=== PATIENT | female | born 1945 | race Caucasian/White ===

== ENCOUNTER 2018-12-25 10:17 | Outpatient (CLI) | payer MEDICARE, BC, SELFPAY ==
--- NOTE | 2018-12-25 09:30 | DI.RAD_ITS ---
SYMPTOMS/DIAGNOSIS: LOW BACK PAIN, M54.5 LUMBAR SPINE: AP, lateral and bilateral oblique views of the lumbar spine. Comparison 03/30/11. There is again seen a left convex scoliosis of the lumbar spine. No spondylolysis or spondylolisthesis is seen. There are degenerative changes of the facets seen from L 3 - 4 through L 5 - S 1. Disc space narrowing is present throughout the lumbar spine. There are endplate osteophytes present at L 1 - 2 through L 4 - 5. No acute fractures or subluxations are seen. Calcification of the abdominal aorta is noted. Note is made of a right total hip replacement. IMPRESSION: Moderate degenerative changes of the lumbar spine.
[2018-12-25 11:43] LABS: Anion Gap 11.8 mmol/L (3-11); BUN 15 mg/dL (7-18); CO2 24.2 mmol/L (21.0-32.0); CREATININE 0.65 mg/dL (0.55-1.02); Calcium 8.9 mg/dL (8.5-10.1); Chloride 105 mmol/L (98-107); Glucose 110 mg/dL (70-100); Sodium 141 mmol/L (136-145); TSH 2.68 uIU/mL (0.358-3.74)
== END 2018-12-25 10:37 ==
PROVIDERS: PCP Emergency Medicine; Visit Provider Emergency Medicine
DX: M54.5 Low back pain (principal); I10 Essential (primary) hypertension; E03.9 Hypothyroidism, unspecified; M51.36 Other intervertebral disc degeneration, lumbar region; M47.817 Spondylosis without myelopathy or radiculopathy, lumbosacral region
CPT/HCPCS: 36415; 80048; 72110; 84443

== ENCOUNTER 2020-01-08 00:58 | Outpatient (CLI) | payer MEDICARE, BC, SELFPAY ==
--- NOTE | 2020-01-08 08:30 | DI.RAD_ITS ---
EXAM: XR HIP LT COMPLETE AP PELVIS CLINICAL HISTORY: Left hip pain,M25.552. TECHNIQUE: 2D digital imaging was performed. COMPARISON: CR PELVIS AP from 03/30/2011 FINDINGS: BONES: No acute fracture is present. No bony destructive lesion is seen. Since the prior examination the patient has undergone a right total hip replacement. The visualized orthopedic components appear well maintained. JOINTS: No dislocation present. Mild degenerative changes are seen in the left hip characterized by m ild joint space narrowing and small periarticular spurs. Degenerative changes are seen in the lower lumbosacral spine. Sacroiliac joints and symphysis pubis are intact. SOFT TISSUE: Normal. IMPRESSION: Mild degenerative changes of the left hip. Right THR. DATA REPOSITORY: RADIATION DOSE DELIVERED:
[2020-01-08 13:16] LABS: Calculated LDL 107 mg/dL (<100); Cholesterol 209 mg/dL (<200); HDL Cholesterol 82 mg/dL (40-60); TSH 2.24 uIU/mL (0.36-3.74); Triglyceride 103 mg/dL (<150)
== END 2020-01-08 01:18 ==
PROVIDERS: PCP Emergency Medicine; Visit Provider Emergency Medicine
DX: M25.552 Pain in left hip (principal); M16.12 Unilateral primary osteoarthritis, left hip; Z96.641 Presence of right artificial hip joint; E03.9 Hypothyroidism, unspecified
CPT/HCPCS: 36415; 80061; 73502; 84443

== ENCOUNTER 2020-03-09 15:09 | Emergency (ER) | payer MEDICARE, BC, SELFPAY ==
[2020-03-09 15:13] VITALS: BP 163/74; PULSE 88; RESP 18; TEMP 36.7; O2SAT 96
--- NOTE | 2020-03-09 15:30 | DI.CT_ITS ---
EXAM: CT ABDOMEN PELVIS W CLINICAL HISTORY: rectal bleeding, hx polyps. TECHNIQUE: Imaging Protocol: Axial computed tomography images with coronal and sagittal reformatted images were created and reviewed CONTRAST MATERIAL: Intravenous: Omnipaque 350 Contrast volume:100 mL Oral: No COMPARISON: CT CHEST WITH CONTRAST from 01/04/2011 FINDINGS: ABDOMEN: Lung Bases: Scarring in the lung bases. Liver: Normal density. No measurable mass. Portal, Superior Mesenteric, and Splenic Veins: Unremarkable. Gallbladder and Biliary Tract: No radiodense calculus or dilation. Pancreas: Normal density, no abnormal calcifications or inflammatory process. Spleen: Normal. Adrenals: No masses seen. Kidneys: Normal size, contour and axis. No radiodense stones or obstructive uropathy. No masses seen. Abdominal Aorta: Abdominal portion non-dilated. Atherosclerosis. Bowel: There is colonic diverticulosis but no evidence of acute diverticulitis. There is a moderate- sized hiatal hernia. No evidence of acute appendicitis. No evidence of bowel obstruction. Mild thi ckening of the wall of the transverse colon. This may be due to underdistention. An infectious or i nflammatory colitis or lesion cannot be excluded. Peritoneal Cavity: No ascites, collection or mesenteric inflammatory response. Lymph Nodes: Within normal limits. Bones: Degenerative changes in the spine. Right total hip arthroplasty which does cause artifact in the pelvis. Soft Tissues: Small fat containing supraumbilical hernia. PELVIS: Bladder: Symmetric distention, no gross wall thickening. Partially obscured due to the artifact from the right hip prosthesis. Reproductive Organs: 3 cm left ovarian cyst. Lymph Nodes: Within normal limits. Bones: Please see above. IMPRESSION: 1. 3 cm left ovarian cyst. Follow-up is recommended as early malignancy cannot be excluded in a ang ent of this age. 2. Wall thickening of the transverse colon. This may be due to underdistention although an inflammat ory infectious colitis or lesion cannot be excluded. Follow-up as clinically indicated. 3. Colonic diverticulosis but no evidence of acute diverticulitis. RADIATION DOSE DELIVERED: 637.69mGy.cm Total DLP DATA REPOSITORY: All CT scans at this facility are submitted to the National Radiology Data Registry (NRDR) Dose Index Registry (DIR) with the [employer] ([employer]). RADIATION OPTIMIZATION: All CT scans at this facility use at least one of these dose optimization te chniques: automated exposure control; mA and/or kV adjustment per patient size (includes targeted exa ms where dose is matched to clinical indication); or iterative reconstruction.
--- NOTE | 2020-03-09 15:37 | W.ED.GENAD ---
Discharge Plan Disposition Patient Disposition: HOME Condition: Improving Discharge Details Chief Complaint: GI Bleed Clinical Impression: Hematochezia Primary Care Provider: Javi Izaguirre ED Provider: Moisés Dumont Home Meds and New Rx's Prescriptions: Continued lorazepam 0.5 mg tablet 0.5 mg PO QHS PRN (Reason: anxiety) Qty: 90 RF: 0 amlodipine 5 mg tablet 5 mg PO DAILY Qty: 90 RF: 4 acetaminophen [Acetaminophen Extra Strength] 500 MG tablet 500 - 1,000 tab PO BID RF: 0 omeprazole 20 MG capsule,delayed release(DR/EC) 20 mg PO DAILY Qty: 90 RF: 4 mometasone 45 GM cream 45 gm Topical daily prn RF: 0 fluticasone propionate 16 GM spray,suspension 50 mcg NS DAILY RF: 0 multivitamin [Daily Multi-Vitamin] 1 EACH tablet 1 ea PO DAILY RF: 0 cholecalciferol (vitamin D3) 1,000 UNIT capsule 1,000 unit PO DAILY RF: 0 levothyroxine [Synthroid] 50 mcg tablet 50 mcg PO DAILY Qty: 90 RF: 2 lutein-zeaxanthin 20 mg- 1,000 mcg Capsule PO DAILY RF: 0 zcrqwyo-ksdddvcto-pqaj 333-133-5 mg Tablet PO DAILY RF: 0 Discontinued meloxicam 15 mg tablet 15 mg PO DAILY RF: 0 Discharge Instructions Instructions: Rectal Bleeding (ED) Additional Instructions: Your work-up today included CBC, comprehensive panel, CT scan of the abdomen and pelvis. Return for persistent rectal bleeding, weakness, chest pain, lightheadedness, or any other acute concerns. Please observe a bland diet. We will ask our care management team to arrange an outpatient follow-up for you in clinic with general surgery. Home to rest this evening. 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 She has had external hemorrhoids and rectal bleeding in the past. Today with her morning bowel movement she noted a brown stool with spots of blood. It then ceased. After lunch she went to urinate and developed what she describes as large volume bloody rectal effluent. It was able to cease at home with placement of a pad. She subsequently was brought to the emergency department with her . She arrives slightly hypertensive at 163/74 with a pulse of 88 but otherwise pleasant, conversant, in no acute distress. Her abdominal exam is benign. There is crusted dried blood around her rectum. The rectal exam reveals normal tone, no mass, no active bleeding. Her history of GERD, recent course of meloxicam for 3 weeks, & medical record that notes Colon polyps and diverticulosis are notable. Differential diagnosis includes colitis, diverticulitis, mass, internal hemorrhoid or bleeding polyp. IV access was established, patient had screening laboratories obtained, started on maintenance fluids, referred for screening laboratories and p.o. and IV enhanced CT scan of the abdomen. Labs are unremarkable. No further rectal bleeding. CT reveals thickening of the transverse colon. May be consistent with colitis. Discussed with her consideration of admission which she would like to defer. Discussed with her indications to return to the ER for reevaluation. Will arrange for outpatient follow-up in surgery with consideration of colonoscopy. She is stable and improved. However observe a bland diet. She has already decided to stop taking the previously prescribed meloxicam.. Lab Data Lab results reviewed: Yes I reviewed the patient's lab results. Labs: Laboratory Results - last 24 hr 03/09/20 03/09/20 03/09/20 15:35 15:35 15:35 WBC 9.44 RBC 4.59 Hgb 14.2 Hct 43.0 MCV 93.7 MCH 30.9 MCHC 33.0 RDW 14.0 Plt Count 281 MPV 9.4 Immature Gran % 0.3 Neutrophils % 63.9 Lymphocytes % 24.9 Monocytes % 8.5 Eosinophils % 2.0 Basophils % 0.4 Absolute Neutrophils 6.03 Absolute Lymphocytes 2.35 Absolute Monocytes 0.80 Absolute Eosinophils 0.19 Absolute Basophils 0.04 PT 10.3 INR 1.0 APTT 23.9 Sodium 139 Potassium 3.5 Chloride 103 Carbon Dioxide 25.3 Anion Gap 10.7 BUN 18 Creatinine 0.79 Estimated GFR/1.73 m2 >= 60.00 Glucose 106 Calcium 10.2 H Magnesium 2.2 Total Bilirubin 0.4 AST 27 ALT 31 Alkaline Phosphatase 71 Total Protein 8.0 Albumin 3.9 HPI General Mode of arrival: ambulatory. Date/Time Provider Initiated Documentation: 03/09/20 15:11. Limitations to Documentation: no limitations. Information obtained by: patient. History of Present Illness 74 year old F presents to the emergency department with the chief complaint of Blood per rectum, described as moderate, and is localized to the buttocks. Patient reports no radiation. Patient started experiencing this hour(s) and it has been intermittent and now resolved. No relieving factors improve symptom(s), Other factors that worsen symptoms (Bowel movement) . Patient notes denies cough, fever/chills and nausea/vomiting. Patient did receive the following treatments prior to arrival, none Related Data Home Medications Medication Instructions Recorded Confirmed acetaminophen [Acetaminophen Extra 500 - 1,000 tab PO BID 10/18/12 03/09/20 Strength] omeprazole 20 mg PO DAILY #90 tab-cap 10/18/12 03/09/20 mometasone 45 gm TOPICAL daily prn script 12/30/14 12/25/18 fluticasone propionate 50 mcg NS DAILY spray 11/25/16 03/09/20 multivitamin [Daily Multi-Vitamin] 1 ea PO DAILY 04/14/17 03/09/20 cholecalciferol (vitamin D3) 1,000 unit PO DAILY 06/27/17 03/09/20 levothyroxine 50 mcg tablet 50 mcg PO DAILY #90 tab-cap 12/30/19 03/09/20 amlodipine 5 mg tablet 5 mg PO DAILY #90 tab-cap 01/07/20 03/09/20 lorazepam 0.5 mg tablet 0.5 mg PO QHS PRN #90 tab 01/07/20 03/09/20 moszamd-fpphvedeq-yvjl tab PO DAILY 03/09/20 lutein-zeaxanthin cap PO DAILY 03/09/20 Previous Rx's Medication Instructions Recorded levothyroxine 50 mcg tablet 50 mcg PO DAILY #90 tab-cap 12/30/19 amlodipine 5 mg tablet 5 mg PO DAILY #90 tab-cap 01/07/20 lorazepam 0.5 mg tablet 0.5 mg PO QHS PRN #90 tab 01/07/20 Allergies Allergy/AdvReac Type Severity Reaction Status Date / Time prochlorperazine edisylate AdvReac Intermediate agitation Verified 03/09/20 15:24 [From Compazine] prochlorperazine maleate AdvReac Intermediate agitation Verified 03/09/20 15:24 [From Compazine] metoclopramide HCl AdvReac disorientat Verified 03/09/20 15:24 [From Reglan] ion General Stated Complaint: GI Bleed TRAVIS: 3 Review of Systems Narrative: Recently placed on meloxicam, has been taking for 3 weeks, stopped today. Blood with brown bowel movement this morning. No fever, cough, shortness of breath or suspicious sick contacts. 7 systems reviewed and otherwise negative [facility] Medical History (Updated 03/09/20 @ 18:00 by Moisés Dumont MD) Allergic rhinitis Anxiety Breast cancer Colon polyps Depression (emotion) Diverticulosis large intestine w/o perforation or abscess w/o bleeding Fibromyalgia GERD (gastroesophageal reflux disease) Hypertension Left ear hearing loss Left hip pain (Acute) MS (multiple sclerosis) Rosacea Sleep apnea with use of continuous positive airway pressure (CPAP) (Acute) Tubular adenoma of colon (Acute) 02/24/19 [facility] [place] Surgical History Arthroplasty of knee RIGHT KNEE 1991, 1992, 1996 Breast, Lumpectomy (~1988) RIGHT breast Breast, Mastectomy PARTIAL LEFT BREAST 2010 RE-EXCISION LEFT BREAST 2010 Colonoscopy - MAC (~2004) 2005:diverticulitis 2014: 3 polyps Endometrial Biopsy 1997 neg 2000 neg Extraction of cataract (~01/2012) B/L WITH IMPLANTS Ligation of fallopian tube (~1971) Meniscectomy 1961 RIGHT LATERAL KNEE Open Carpal Tunnel release (~2009) Replacement of total knee joint LEFT 12/03 RIGHT 1996- WITH REVISION 12/10 thumb surgery B/L Total replacement of hip 08/19/14; RIGHT; DR. GRAY WRIST FX REPAIR (~2009) RIGHT Family History Mother Essential hypertension Diabetes Personal history of malignant neoplasm LUNG Father Essential hypertension Personal history of malignant neoplasm LUNG Stroke Sister Essential hypertension Brother Essential hypertension Diabetes Personal history of malignant neoplasm LIVER Grandfather No problems noted. Grandfather No problems noted. Grandmother No problems noted. Grandmother No problems noted. Social History Smoking/Tobacco Use Status: Former Tobacco Use Alcohol Intake: current Alcohol Intake frequency: 0-2 drinks per day Alcohol type: wine Drug use: Never Substance use type: does not use Details: light smoker Do you feel safe at home: Yes Do you feel safe in your relationship?: Yes Exam Narrative Exam Narrative: GEN: awake, alert, oriented 3. Pleasant, well groomed, interactive. HEAD: Normocephalic, atraumatic ENT: Mucous membranes moist, oropharynx unremarkable, External ear exam unremarkable EYES: PERRL, EOMI NECK: Full ROM, no SUDARSHAN, no menigismus CHEST/RESP: Nontender, clear to auscultation bilateral, no wheeze/rhonchi/rales CARDIOVASCULAR: RRR, no murmur, rub samantha. 2+ Rad pulse bilateral ABDOMEN: Soft, nontender, no mass, positive bowel sounds, rectal exam reveals crusted blood around normal-appearing anal sphincter, normal rectal tone, rectal vault is empty, no masses appreciated. Guaiac positive mucus and blood. EXT: Full ROM, no edema, no rash Neuro: Grossly normal neurologic exam, conversant, interactive. Psych: Speech fluent, thoughts congruent, affect normal Course Vital Signs Vital signs: Vital Signs Temperature 36.7 C 03/09/20 15:13 Pulse 88 03/09/20 15:13 Respiratory Rate 18 03/09/20 15:13 Blood Pressure 163/74 H 03/09/20 15:13 Pulse Oximetry 96 03/09/20 15:13 Temperature 36.7 C 03/09/20 15:13 Temperature Source Skin 03/09/20 15:13 Pulse 88 03/09/20 15:13 Respiratory Rate 18 03/09/20 15:13 Respiratory Effort 03/09/20 15:21 Blood Pressure 163/74 H 03/09/20 15:13 Blood Pressure Position Sitting 03/09/20 15:13 Pulse Oximetry 96 03/09/20 15:13 Oxygen Delivery Method Room Air 03/09/20 15:13 Oxygen Flow Rate 0 03/09/20 15:13 Pain Level 4 03/09/20 15:13 Comment 03/09/20 15:13
[2020-03-09 15:44] LABS: Abs Immature Grans 0.03 10^3/uL (0.0-0.06); Absolute Basophil Count 0.04 10^3/uL (0.0-0.2); Absolute Eosinophil Count 0.19 10^3/uL (0.0-0.7); Absolute Lymphocyte Count 2.35 10^3/uL (1.2-3.4); Absolute Neutrophil Count 6.03 10^3/uL (1.2-6.7); Basophils % 0.4; HGB 14.2 g/dL (11.2-15.7); Immature Grans % 0.3; Lymphocytes % 24.9; MCH 30.9 pg (27.0-33.0); MCV 93.7 fL (80-95); MPV 9.4 fL (8.0-11.0); Monocytes % 8.5; Neutrophils % 63.9; Nucleated RBC 0 %; Platelet Count 281 10^3/uL (130-400); RBC 4.59 10^6/uL (3.93-5.22); RDW-SD 47.2 fL; WBC 9.44 10^3/uL (4.4-10.8)
[2020-03-09] MEDS: Normal Saline 1,000 ML 125 ML IV (15:46)
[2020-03-09 16:04] LABS: ALT 31 U/L (14-59); AST 27 U/L (15-37); Albumin 3.9 g/dL (3.4-5.0); Alkaline Phosphatase 71 U/L (46-116); Anion Gap 10.7 mmol/L (3-11); BUN 18 mg/dL (7-18); Bilirubin, Total 0.4 mg/dL (0.2-1.0); CO2 25.3 mmol/L (21.0-32.0); CREATININE 0.79 mg/dL (0.55-1.02); Calcium 10.2 mg/dL (8.5-10.1); Chloride 103 mmol/L (98-107); Glucose 106 mg/dL (74-106); Magnesium 2.2 mg/dL (1.8-2.4); Potassium 3.5 mmol/L (3.5-5.1); Sodium 139 mmol/L (136-145)
[2020-03-09 16:10] LABS: PTT Activated 23.9 sec (21.0-31.4); Prothrombin Time 10.3 sec (9.3-11.0)
[2020-03-09 16:23] VITALS: BP 139/68; PULSE 87; RESP 16; O2SAT 98
[2020-03-09] MEDS: Omnipaque 350 MG/ML 100 ML BTL IJ (16:54)
[2020-03-09] MEDS: Normal Saline - Diluent 50 ML VIAL IV (16:54)
[2020-03-09 17:36] VITALS: BP 166/74; PULSE 85; RESP 16; O2SAT 95
[2020-03-09 17:37] VITALS: BP 166/74; PULSE 85; RESP 16; O2SAT 95
--- NOTE | 2020-03-09 17:47 | DI.VRAD_ITS ---
PROCEDURE INFORMATION: Exam: CT Abdomen And Pelvis With Contrast Exam date and time: 03/09/2020 3:37 PM Age: 74 years old Clinical indication: Patient HX: Rectal bleeding, HX of polyps; TECHNIQUE: Imaging protocol: Computed tomography of the abdomen and pelvis with intravenous contrast. COMPARISON: CR XR HIP LT COMPLETE AP PELVIS 01/08/2020 11:44 AM FINDINGS: Lungs: Minimal scarring at the pulmonary bases. Mediastinal space: Moderate hiatal hernia. Liver: Normal. No mass. Gallbladder and bile ducts: Normal. No calcified stones. No ductal dilation. Pancreas: Normal. No ductal dilation. Spleen: Normal. No splenomegaly. Adrenals: Normal. No mass. Kidneys and ureters: Normal. No hydronephrosis. Stomach and bowel: Duodenal diverticulum. Distal colonic diverticulosis without diverticulitis. Wall thickening in the transverse colon measuring up to 1.4 cm. This could be related to under distention although underlying colitis or lesion is not excluded. Follow-up with colonoscopy if clinically relevant. Appendix: Unable to identify the appendix. Intraperitoneal space: Unremarkable. No free air. No significant fluid collection. Vasculature: Atherosclerosis. Lymph nodes: Unremarkable. No enlarged lymph nodes. Bladder: Unremarkable as visualized. Reproductive: Left ovarian cyst measures 3 cm. Follow-up is recommended. Bones/joints: Right hip replacement. Soft tissues: Unremarkable. IMPRESSION: 1. Left ovarian cyst measures 3 cm. Follow-up is recommended. In a patient of this age, early malignancy should be excluded. 2. Distal colonic diverticulosis without diverticulitis. 3. Wall thickening in the transverse colon measuring up to 1.4 cm. This could be related to under distention although underlying colitis or lesion is not excluded. Follow-up with colonoscopy if clinically relevant. Dictated and Authenticated by: Nikia Alexander MD. Ordering:KRISTEN Curiel MD
--- NOTE | 2020-03-09 17:55 | NUR.NOTE ---
referral to faxed to General Surgery.Nursing Note:
== END 2020-03-09 18:19 | disposition home or self-care (01) ==
PROVIDERS: Emergency Provider Emergency Medicine; PCP Emergency Medicine
DX: K92.1 Melena (principal); K57.90 Diverticulosis of intestine, part unspecified, without perforation or abscess without bleeding; I10 Essential (primary) hypertension; G35 Multiple sclerosis
CPT/HCPCS: 36415; 80053; 96360; 96361; 99285; 74177; 83735; 85025; 85610; 85730; 99284; J3490

== ENCOUNTER → 2020-03-19 09:29 | Outpatient (BNVA) | payer MEDICARE, BC, SELFPAY | PROVIDERS: PCP Emergency Medicine; Referring Provider Emergency Medicine; Visit Provider Physical Therapy Assistant | DX: K62.5 Hemorrhage of anus and rectum (principal); Z86.010 Personal history of colon polyps; I10 Essential (primary) hypertension | CPT/HCPCS: 99213 ==

== ENCOUNTER 2020-03-26 10:07 | Day surgery (SDC) | payer MEDICARE, BC, SELFPAY ==
[2020-03-26 10:32] VITALS: BP 126/60; PULSE 69; RESP 16; TEMP 36.4; O2SAT 100
[2020-03-26] MEDS: Lactated Ringers 1,000 ML 80 ML IV (10:57)
--- NOTE | 2020-03-26 12:30 | BOWEL_PTH ---
PATIENT: Sofía Mcdonald LOC: [facility] U#:[id number] AGE/SX: 74/F ROOM: RE03/26/[address]: Belia Shannon : 1945 BED: DIS: 03/26/2020 SPEC #: [id number] RECD: 03/26/20 17:42 STATUS: YESENIA REQ #: [id number] REGINALD: 03/26/20 12:[address]: Belia Shannon DEPT: Surgical Specimen RECD BY: Saida Haque ENTERED: 03/26/20 17:43 SP TYPE: Bowel OTHR DR: Javi Izaguirre DO Tissues: 1 - BIOPSY BOWEL 2 - BIOPSY BOWEL Procedures: GROSS AND MICRO LEVEL 4 Comments: [id number]
--- NOTE | 2020-03-26 12:40 | W.PM.DSUDISC ---
Discharge Plan Disposition Patient Disposition: HOME Condition: Good Discharge Details Reason For Visit: colon scope Attending Provider: Belia Shannon Primary Care Provider: Javi Izaguirre Home Meds and New Rx's Prescriptions: Continued lorazepam 0.5 mg tablet 0.5 mg PO QHS PRN (Reason: anxiety) Qty: 90 RF: 0 amlodipine 5 mg tablet 5 mg PO DAILY Qty: 90 RF: 4 acetaminophen [Acetaminophen Extra Strength] 500 MG tablet 500 - 1,000 tab PO BID RF: 0 omeprazole 20 MG capsule,delayed release(DR/EC) 20 mg PO DAILY Qty: 90 RF: 4 mometasone 45 GM cream 45 gm Topical daily prn RF: 0 fluticasone propionate 16 GM spray,suspension 50 mcg NS DAILY RF: 0 multivitamin [Daily Multi-Vitamin] 1 EACH tablet 1 ea PO DAILY RF: 0 cholecalciferol (vitamin D3) 1,000 UNIT capsule 1,000 unit PO DAILY RF: 0 levothyroxine [Synthroid] 50 mcg tablet 50 mcg PO DAILY Qty: 90 RF: 2 lutein-zeaxanthin 20 mg- 1,000 mcg Capsule 1 cap PO DAILY RF: 0 chqcndv-ftibeilan-vvkn 333-133-5 mg Tablet 1 tab PO DAILY RF: 0 ibuprofen 200 mg Tablet 400 mg PO DAILY RF: 0 Discontinued polyethylene glycol 3350 17 gram/dose powder 238 g PO ONCE Qty: 238 RF: 0 bisacodyl [Dulcolax (bisacodyl)] 5 mg tablet,delayed release (DR/EC) 5 mg PO ONCE Qty: 4 RF: 0 Discharge Instructions Instructions: Anal Fissure (GEN) Additional Instructions: Findings:rectal fissure sm. A. polyp Diverticulosis transverse colon appeared normal. Biopsy was done. -Please sure you are moving your bowels regularly and not straining to go to the bathroom. The fissure should heal on its own. You will receive a letter in the mail in 2 to 3 weeks with the results from the biopsy and pathology on the polyp. *You also have an enlarged left ovary on the CT. I did order a ultrasound to be done as outpatient and do recommend that she follow-up with gynecology regarding this. Follow up:1 months time Please call if you develop: fevers >101.5 Nausea or Vomiting Abdominal pain that is not transient DAY SURGERY UNIT POST COLONOSCOPY INSTRUCTIONS 1. Because there will be medication in your system for the next 24 hours, you may feel a little sleepy. Your coordination will be affected. Therefore: a. Do not drive or operate dangerous equipment for 24 hours. b. Do not drink alcohol beverages for 24 hours (not even beer). c. Plan to go home and rest for the day. 2. Generally there are no restrictions on your activity after a day or so has gone by, but you may feel a bit fatigued for a few days. 3 After you arrive home you may have a light meal and return to a normal diet as you can tolerate it without feeling sick to your stomach. 4. After surgery, you may feel pain or discomfort. This should be only transient, but if it persists please contact your doctor. 5. If there are any questions regarding the findings of your procedure, please feel free to contact your doctor. 6. If you are unable to contact your doctor with a problem, contact the hospital at [phone]. 7. Continue all your regular medications unless directed otherwise. I understand the above instructions and have no questions. Signature of Patient or Responsible Adult Escort Date/Time Name of Responsible Adult Escort Signature of Nurse Date/Time DIVERTICULAR DISEASE OVERVIEW ? A diverticulum is a pouch-like structure that can form through points of weakness in the muscular wall of the colon (ie, at points where blood vessels pass through the wall). Diverticulosis affects men and women equally. The risk of diverticular disease increases with age. It occurs throughout the world but is seen more commonly in developed countries. WHAT IS DIVERTICULAR DISEASE? Diverticulosis ? Diverticulosis merely describes the presence of diverticula. Diverticulosis is often found during a test done for other reasons, such as flexible sigmoidoscopy, colonoscopy, or barium enema. Most people with diverticulosis have no symptoms and will remain symptom free for the rest of their lives. A person with diverticulosis may have diverticulitis, or diverticular bleeding. Diverticulitis ? Inflammation of a diverticulum (diverticulitis) occurs when there is thinning and breakdown of the diverticular wall. This may be caused by increased pressure within the colon or by hardened particles of stool, which can become lodged within the diverticulum. The symptoms of diverticulitis depend upon the degree of inflammation present. The most common symptom is pain in the left lower abdomen. Other symptoms can include nausea and vomiting, constipation, diarrhea, and urinary symptoms such as pain or burning when urinating or the frequent need to urinate. Diverticulitis is divided into simple and complicated forms. ?Simple diverticulitis, which accounts for 75 percent of cases, is not associated with complications and typically responds to medical treatment without surgery. ?Complicated diverticulitis occurs in 25 percent of cases and usually requires surgery. Complications associated with diverticulitis can include the following: ?Abscess ? a localized collection of pus ?Fistula ? an abnormal tract between two areas that are not normally connected (eg, bowel and bladder) ?Obstruction ? a blockage of the colon ?Peritonitis ? infection involving the space around the abdominal organ ?Sepsis ? overwhelming body-wide infection that can lead to failure of multiple organs Diverticular bleeding ? Diverticular bleeding occurs when a small artery located within a diverticulum is eroded and bleeds into the colon. Diverticular bleeding usually causes painless bleeding from the rectum. In approximately 50 percent of cases, the person will see maroon or bright red blood with bowel movements. Is bleeding with a bowel movement normal? ? It is not normal to see blood in a bowel movement; this can be a sign of several conditions, most of which are not serious (eg, hemorrhoids) but some of which are serious and require immediate treatment. Anyone who sees blood after a bowel movement should consult with their healthcare provider to determine if further testing or evaluation is needed. DIVERTICULOSIS AND DIVERTICULITIS DIAGNOSIS ? Diverticulosis is often found during tests performed for other reasons. ?Barium enema ? This is an x-ray study that uses barium in an enema to view the outline of the lower intestinal tract. This is an older test and has been largely replaced by computed tomography (CT) scan. ?Flexible sigmoidoscopy ? This is an examination of the inside of the sigmoid colon with a thin, flexible tube that contains a camera. ?Colonoscopy ? This is an examination of the inside of the entire colon. ?CT scan ? A CT scan is often used to diagnose diverticulitis and its complications. If diverticulitis (not just diverticulosis) is suspected, the above three tests should not be used because of the risk of perforation. TREATMENT Diverticulosis ? People with diverticulosis who do not have symptoms do not require treatment. However, most clinicians recommend increasing fiber in the diet, which can help to bulk the stools and possibly prevent the development of new diverticula, diverticulitis, or diverticular bleeding. Fiber is not proven to prevent these conditions in all patients but may help to control recurrent episodes in some. Increase fiber ? Fruits and vegetables are a good source of fiber. Fiber content of packaged foods can be calculated by reading the nutrition label. Seeds and nuts ? Patients with diverticular disease have historically been advised to avoid whole pieces of fiber (such as seeds, corn, and nuts) because of concern that these foods could cause an episode of diverticulitis. However, this belief is completely unproven. We do not suggest that patients with diverticulosis avoid seeds, corn, or nuts. Diverticulitis ? Treatment of diverticulitis depends upon how severe your symptoms are. Home treatment ? If you have mild symptoms of diverticulitis (mild abdominal pain, usually left lower abdomen), you can be treated at home with a clear liquid diet and oral antibiotics. However, if you develop one or more of the following signs or symptoms, you should seek immediate medical attention: ?Temperature >100.1?F (38?C) ?Worsening or severe abdominal pain ?An inability to tolerate fluids Hospital treatment ? If you have moderate to severe symptoms, you may be hospitalized for treatment. During this time, you are not allowed to eat or drink; antibiotics and fluids are given into a vein. If you develop an abscess of the colon, you may require drainage of the abscess (usually performed by placing a drainage tube across the abdominal wall) or by surgically opening the affected area. Surgery ? If you develop a generalized infection in the abdomen (peritonitis), you will usually require an emergency operation. A two-part operation may be necessary in some cases. ?The first operation involves removal of the diseased colon and creation of a colostomy. A colostomy is an opening between the colon and the skin, where a bag is attached to collect waste from the intestine. The lower end of the colon is temporarily sewed closed to allow it to heal. ?Approximately three to six months later, a second operation is performed to reconnect the two parts of the colon and close the opening in the skin. You are then able to empty your bowels through the rectum. Sometimes patients require up to a year to recover from the first operation, depending on how sick they were. In non-emergency situations, the diseased area of the colon can be removed and the two ends of the colon can be reconnected in one operation, without the need for a colostomy. Surgery versus medical therapy ? An operation to remove the diseased area of the colon may be necessary if you do not improve with medical therapy. After an episode of uncomplicated diverticulitis, elective surgery is generally not required as the risk of another attack or requiring emergency surgery is low. However, patients with persistent symptoms attributable to diverticulitis, a history of complicated diverticulitis, or a compromised immune system should be evaluated for possible surgery to prevent another attack. In such patients, another attack has been associated with a higher risk of complications or . Of course, the decision will also depend in part upon your other medical conditions and ability to undergo surgery. In many cases, an elective operation can be performed laparoscopically, using small incisions, rather than the typical vertical (up and down) abdominal incision. Laparoscopic surgery usually allows you to recover more quickly and shortens the hospital stay. After diverticulitis resolves ? After an episode of diverticulitis resolves, if you have not had a recent colonoscopy, the entire length of the colon should be evaluated to determine the extent of disease and to rule out the presence of abnormal lesions such as polyps or cancer. Recommended tests include colonoscopy, barium enema and sigmoidoscopy, or CT colonography. Diverticular bleeding ? Most cases of diverticular bleeding resolve on their own. However, some people will need further testing or treatment to stop bleeding, which may include a colonoscopy, angiography (a treatment that blocks off the bleeding artery), bleeding scan, or surgery. DIVERTICULAR DISEASE PROGNOSIS Diverticulosis ? Over time, diverticulosis may cause no problems or it may cause episodes of bleeding and/or diverticulitis. Approximately 15 to 25 percent of people with diverticulosis will develop diverticulitis, while 5 to 15 percent will develop diverticular bleeding. Diverticulitis ? Approximately 85 percent of people with uncomplicated diverticulitis will respond to medical treatment, while approximately 15 percent of patients will need an operation. After successful treatment for a first attack of diverticulitis, one-third of patients will remain asymptomatic, one-third will have episodic cramps without diverticulitis, and one-third will go on to have a second attack of diverticulitis. The prognosis tends to remain similar following a second attack of diverticulitis. Only 10 percent of people remain symptom-free after a second attack. Subsequent attacks tend to be of similar severity, not increasing in severity as previously believed. High Fiber Diet What is Dietary Fiber? All fiber comes from plants, bushes, myriam or trees. Of course, the ones that we eat provide us with fruits, vegetables and grains. There are many different types of fiber but the three that are most important to the health of the body are: Insoluble Fiber This fiber does not dissolve in water, nor is it fermented by the bacteria residing in the colon. Rather, it retains water and in so doing, helps to promote a larger, bulkier and more regular bowel activity. This, in turn, may be important in preventing disorder such as diverticulosis and hemorrhoids, and in sweeping out certain toxins and cancer causing carcinogens. Sources of insoluble fiber are: ? whole grain wheat and other whole grains ? corn bran, including popcorn, unflavored and unsweetened ? nuts and seeds ? potatoes and the skins from most fruits from trees such as apples, bananas and avocados ? many green vegetables such as green beans, zucchini, celery and cauliflower ? some fruit plants such as tomatoes and kiwi Soluble Fiber These fibers are fermented or used by the colon bacteria as a food source or nourishment. When these good bacteria grow and thrive, many health benefits occur in both the colon and the body. Soluble fiber is present in some degree in most edible plant foods, but the ones with the most soluble fiber include: ? legumes such as peas and most beans, including soybeans ? oats, rye and barley ? many fruits such as berries, plums, apples bananas and pears ? certain vegetables such as broccoli and carrots ? most root vegetables ? psyllium husk supplement products Prebiotic Soluble Fiber These are relatively newly discovered soluble plant fibers. The technical name for this fiber is inulin or fructan. When these soluble fibers are fermented by the good colon bacteria, some further significant health benefits have been shown to occur by research in many medical centers. These soluble prebiotic fibers occur in significant amounts in: ? asparagus ? yams ? onions ? garlic ? bananas ? leeks ? agave ? chicory and other root vegetables such as [place] artichokes ? wheat, rye and barley (smaller amounts) Benefits of a High Fiber Diet The health benefits of a high fiber diet, consumed on a regular basis and reaching recommended amounts (below), are now fairly well-defined. There are some additional benefits in the early research stage with the prebiotic soluble fibers. What is now known regarding a high fiber diet include: Bowel Regularity A high fiber diet promotes regularity with a softer, bulkier and regular stool pattern. This decreases the chance of hemorrhoids, diverticulosis and perhaps colon cancer. Cholesterol and Reduced Triglycerides The soluble fibers are the ones that will reduce cholesterol levels when used on a regular basis. Psyllium husk and prebiotic soluble fiber will also reduce cholesterol. They may also reduce the incidence of coronary heart disease. Oats, flax seeds and legumes or beans are the recommended fibers. Colon Polyps and Cancer It is still not certain if a high fiber diet helps prevent colon cancer. Considerable research suggests that this may occur. Certainly it makes sense to increase regularity and so speed the movement of cancer causing carcinogens through the bowel. In addition, reducing a heavy meat diet reduces the bile flow from the liver in a favorable way. This, too, reduces the amount of carcinogens that reach and are manufactured in the colon. Finally, a high fiber diet, including prebiotic soluble fiber, increases the integrity and health of the wall of the colon. The risk of cancer may be reduced. Colon Wall Integrity A high fiber diet changes the bacterial makeup of the colon toward a more favorable balance. For instance, it is known that those people with obesity, diabetes type 2 and inflammatory bowel disease have a predominance of bad bacteria in the colon. This, in turn, may render the bowel wall weak and allow bacteria and, indeed, even toxins to seep through. A high fiber diet with a modest reduction in animal and meat products may return the bacterial makeup to a more positive balance. This, in particular, has been seen when the soluble fiber prebiotics are added to the diet. Blood Sugar Soluble fiber such as in legumes (beans), oats and in prebiotic fibers slows the absorption of blood sugar and so helps regulate the sugar in the blood. Insoluble fiber on a regular basis is associated with reduced risk of type 2 diabetes. Weight Loss High fiber diets are more filling and give a sense of fullness sooner than an animal and meat based diet does. In addition, the soluble prebiotic fibers have been shown to turn off the hunger hormones produced in the wall of the gut and to increase the hormones that give a sense of fullness. Those hormones are made in the wall of the gut. New medical research has shown that the bacterial makeup in the colon in overweight people is abnormal to the extent that they manufacture and absorb almost twice the number of calories through the colon wall as do normals. Prebiotic fibers (below) will help change this hormonal balancein a favorable way. Bacteria and the Function of the Colon The colon finishes the digestive process. Hopefully, the waste products move through in a nice regular manner. Insoluble fibers help this process by retaining water and so producing a bulkier, softer stool, which is easy to pass. The additional role of the colon is to provide a home for an enormous number of micro-organisms, mostly bacteria. Recent research has shown that there are over 1,000 species of bacteria with a total bacterial count ten times the number of cells in the body. These bacteria play a major role in keeping the colon wall itself healthy. In addition, these good bacteria produce a very strong immune system for the body. They significantly increase calcium absorption and bone density. They provide other documented benefits. It is the soluble fibers in the diet that are so effective in stimulating the growth of good colon bacteria. How Much is Enough? The amount of fiber in food is measured in grams. National nutritional authorities recommend the following amounts of dietary fiber daily. Under Age 50 Over Age 50 Men 38 grams 30 grams Women 25 grams 21 grams For a week or so, it is best to tally the amount of fiber you are consuming. Boxed and packaged foods will have the amount of fiber per serving on the nutrition label. Which Fibers and Which Foods are Best? As noted, healthy fiber is only found in plants. The three major categories are whole grains, fruits and vegetables. Whole Grains Wheat, oats, barley, wild or brown rice, amaranth, buckwheat, bulgur, corn, millet, quinoa, rye, sorghum, teff and triticals. By far, wheat, oats and wild or brown rice are most common. Always buy whole grain products. White bread, baked goods and rolls almost always are made from wheat flour. Wheat flour is white because most of the fiber, vitamins and other nutrients have been removed. Try not buy enriched grains. What this means is that simple white flour has had vitamins added to it by the lead caregiver. The word, enriched, implies a good and healthy product. On the contrary, enriched means that most of the fiber has been removed and a few vitamins added. Fruits Fruits come from trees such as apple and pear or from bushes or myriam. You should eat a wide variety of fruits, preferably with every meal. In many cases, the skin of a fruit such as apple will contain much of the insoluble fiber while the pulp contains most of the soluble fiber. To the extent possible, buy organic fruits as these will have little or no pesticides. Always wash fruit. Vegetables Eat a wide variety of vegetables. They should be a mainstay of lunch and dinners. Frozen vegetables retain as much nutrition and fiber as fresh vegetables. As with fruit, try to buy organic to reduce any residual pesticide ingestion. Wash fresh vegetables thoroughly. Cruciferous vegetables such as broccoli, [place] sprouts and cauliflower contain certain chemicals such as sulforaphane. This substance has very strong anti-cancer properties and should be eaten frequently. Legumes, Beans, Peas and Soybeans These vegetables have plenty of soluble fiber and should be part of a varied vegetable intake. Beans, in particular, contain a certain type of fiber that may lead to harmless gas or bloating. Nuts and Seeds These are rich sources of fiber and are a good substitute for sweets such as candies and baked sweet goods. While nuts and seeds are rich in fiber, they also contain vegetable fat and so can and do add calories. Read the Labels As noted, fresh and frozen foods are usually better. They have good nutrition and few, if any, chemicals added to them. When buying packaged foods and, in particular grains, look for three things: ? The first word on the label should be whole, such as whole wheat or whole grain. ? Check out the calories and the amount of fiber in a serving. ? How many and what other additives or chemicals are added. Fewer is always better. Do you know what each additive does? Some are added not for the benefit of the departmental buyer but rather for manufacturers. These could and do include sugar, artificial flavor, chemicals to prevent oxidation and spoilage, emulsifiers to blend the product. You have to be a geophysical prospecting permit agent. Fiber Facts, Nuggets and Pearls ? For breakfast you can easily get the day started well by using a high fiber, whole grain cereal. Check the labels. Add fruit such as blueberries and bananas. If you are an egg eater, use whole wheat or grain toast. Adding wheat germ gives you a good fiber kick. ? Always use whole grain or wheat with rolls and sandwiches. Does your fast food store not have them? Perhaps you look elsewhere. Eating an occasional black mccollum or veggie burger provides variety. ? Snacks should consist of fruit and/or nuts. While nuts are loaded with fiber, they are an energy rich food, meaning they have a lot of calories in a small packet. ? Fruit juices should contain pulp. Clear juices such as clear orange, pear or apple juice contain little fiber and have a lot of fructose. Prune juice is usually high in fiber. ? Homemade soups ? adding fresh or frozen vegetables to a chicken or vegetable stock is a good way to start homemade soup. ? Salads ? adding cooked and then chilled vegetables provide great flavoring to almost any salad. Remember, a scott salad has lots of cooked corn in it. Small slices of apples or oranges and nuts such as chopped walnuts or sliced almonds always adds taste, variety and fiber to almost any salad. ? Fruit ? Try to eat fruit of some type with almost every meal. ? Rethink how you place the various foods on your dinner plate. Reducing the portions of the meat or animal food portion to the side with equal or more portions of vegetables, legumes and fruits portion always allows for more fiber. There was never anything magic about making the meat or animal food portion the main part of the dinner plate. Eating from smaller plates can, over time, trick your mind and ornament setter habit of using a dinner plate. Again, there is nothing magic in an 11, 12, or 13 inch dinner plate. Fiber Supplements There are a variety of fiber supplements available on the food or pharmacy shelves. Psyllium This soluble plant fiber has been used in [place] for over 2,000 years. It is a soluble fiber with mucilage in it. This acts to retain a lot of water and also is fermented by colon bacteria. When 7 grams a day are used, it does lower cholesterol. Metamucil in various forms is psyllium. Methyl Cellulose All the cellulose products come from finely ground wood chips which are then treated in a variety of ways such as boiling in acids. Methyl cellulose is an insoluble fiber which does dissolve in water. It is also an emulsifier, meaning it blends oils and water. Citrucel is methyl cellulose (MC). MC may not be appropriate for Crohn?s disease or ulcerative colitis as several medical studies have shown that certain emulsifiers dissolve the mucous lining of the colon in animals prone to Crohn?s disease. This then allows bacteria to invade the underlying tissue. Inulin Inulin is a soluble prebiotic fiber found in many foods and which are fermented mostly in the left side of the colon. It is available in a supplement as generic inulin and in Fiber Choice. Oligofructose FOS These are also prebiotic fibers. They are fermented very quickly in the right side of the colon. Prebiotin This product is a combination of oligofructose, which feeds the bacteria in the right side of the colon and inulin, which does the same in the left side of the colon. There seems to be a benefit for this particular formula based on medical research. Prebiotic Soluble Fiber These may be the healthiest of all the soluble fibers. They grow in many plants and have had a great deal of research done on them in the last 10-15 years. These fibers are found in asparagus, yams and other root vegetables such as chicory, garlic, onion, leeks and in smaller amounts in wheat. This research has shown the following: ? Increase in good and decrease in bad colon bacteria ? Increase calcium absorption and enhanced bone mass ? Enhanced immune system ? Appetite and weight control by changing the hormone appetite signals to the brain ? May decrease colon cancer incidence ? Reduce or correct a leaky colon Eating a wide variety of plant food up to the recommended amount will likely give you enough prebiotic fiber. Supplements such as Prebiotin can be added to the diet. Short Chain Fatty Acids (SCFA) Some rather remarkable research findings have shown that one of the benefits of ingesting a lot of soluble fiber, in particular the prebiotic ones, results in larger amounts of SCFAs in the colon. These SCFAs are made by the good bacteria in the colon such as Bifidobacter and Lactobacillus. These small molecules have been shown to do the following: ? Enhance the health and integrity of the colon wall ? Provide nourishment for the cells that actually line the colon ? Increases the acidity of the colon which is a very real health benefit ? Stabilize blood sugar for diabetics ? Reduce blood cholesterol and triglyceride ? Significantly enhance immunity ? May be a benefit for Crohn?s disease and ulcerative colitis patients Fiber and Gas Everyone has intestinal gas and that is a good thing. It means that bacteria, hopefully the good ones, are thriving. The normal amount of flatus passed each day depends on sex and what is eaten. The normal number of flatus is 10-20 times a day. When the bacteria that make intestinal gases are growing, it also means that other good bacteria are using the same fibers to grow and produce multiple health benefits, including the production of healthy short-chain fatty acids. These substances are produced quietly in the colon and produce many health-related outcomes. Soluble fiber should always be used in a gradual manner. If too much is consumed at any one time, then excess, but harmless, intestinal gas can occur. People with irritable bowel syndrome are particularly prone to bloating and mild cramping. In this instance, soluble fiber in the diet or supplement should be used in small doses and increased gradually. Finally, prebiotic fibers tend to cause the production of short-chain fatty acids which acidify the colon. This, in turn, reduces or stops the growth of bacteria that make the smelly hydrogen sulfide gases that produce noxious flatus. People who consume many vegetables with prebiotics or take a prebiotic fiber supplement often have non-odoriferous flatus. Fiber and Irritable Bowel Syndrome Irritable bowel syndrome (IBS) is one of the most common disorders of the lower digestive tract. The symptoms of IBS can be quite varied. They can be a mix of several symptoms such as constipation, diarrhea, crampy abdominal discomfort, bloating and gas. An attack of IBS can be triggered by emotional tension and anxiety, poor dietary habits and certain medications. It is now known that infections in the intestine can lead to long-term IBS symptoms. Increased amounts of fiber in the diet can help relieve the symptoms of irritable bowel syndrome by producing soft, bulky stools. This helps to normalize the time it takes for the stool to pass through the colon. Recent medical research with newer techniques has shown some surprising and dramatic findings for IBS patients. Specifically, there is a very significant and abnormal shift of bacteria from those that provide health benefits to those bad bacteria that we really do not want in the gut. The technical name for this bad group of bacteria is called Firmicutes. Along with this abnormal bacterial collection, there is a smoldering low-grade inflammation in the gut wall that may contribute to symptoms. The goal for IBS patients should be to gradually increase the soluble dietary fibers in the diet so as to promote the growth of good bacteria and so suppress the bad ones along with the associated inflammation. IBS patients need to be careful of the amount of soluble fiber they consume. The reason for this is that, while the good colon bacteria thrive on these fibers and produce health benefits, other gas-forming bacteria may generate excessive but harmless gas and subsequent bloating. Thus, soluble plant fibers or a dietary prebiotic supplement should be taken in small initial doses and then gradually increased to tolerance. Fiber and Colon Polyps/Cancer Colon cancer is a major health problem. This disease is most common in Western cultures. It is not seen very often in rural cultures where the diet is mostly plant based. Usually, colon cancer starts out as a colon polyp, a benign mushroom-shaped growth. In time it grows, and in some people it becomes cancerous. Colon cancer is usually always curable if polyps are removed when found or if surgery is performed at an early stage. It is now known that people can inherit the risk of developing colon cancer, but diet is important, too. As noted, there is a very low rate of colon cancer in residents of countries where grains are unprocessed and retain their fiber. It seems that in the Western world, cancer-containing agents (carcinogens) remain in contact with the colon wall for a longer time and in higher concentrations. So, a large bulky stool may act to dilute these carcinogens by moving them through the bowel more quickly. Less carcinogenic exposure to the colon may mean fewer colon polyps and less cancer. A very current review of the entire world?s literature on the effect of fiber on colon polyps and cancer prevention has shown rather clearly that for every 10 grams of fiber added to the diet, there is a 10% reduction in incidence of colon cancer. So the recommended 30 gram fiber diet would result in a 30% less chance of getting these tumors. There are also substances produced in the colon by the good bacteria that seem to retard certain pre-cancer factors from developing. They are called short-chain fatty acids (SCFA). See above for description of SCFAs. A high fiber diet increases these substances. So, the combination of dietary fiber and the production of short-chain fatty acids have a clear health benefit. Fiber and Diverticulosis Prolonged, vigorous contraction of the colon over a long period of time may result in diverticulosis. This increased pressure causes small and, eventually, larger ballooning pockets to form. These pockets by themselves cause no problem. However, sometimes they become infected (diverticulitis) or even break open (perforate) causing infection or inflammation within the abdomen (peritonitis). A high fiber diet increases the bulk in the stool and thereby reduces the pressure within the colon. By so doing, the formation of pockets may be reduced or possibly even stopped. In the past, many physicians were fearful that seeds as in tomatoes, nuts or berries were harmful and could get inside these pockets and rattle around, causing damage. We now know that this has never been the case and that these foods contain lots of fiber and are actually beneficial for diverticulosis patients. Certain bulking agents such as psyllium are traditional types of bulk producing supplements. Psyllium is a soluble fiber. Combining it with insoluble fiber as in wheat bran or corn bran (no gluten) can enhance this bulking effect even more. A product containing a prebiotic, psyllium and wheat bran is probably a very good combination for bowel regularity. Prebiotin Regularity/Diverticulosis is one such product. Inflammatory Bowel Disease (IBD) IBD means Crohn?s Disease (CD) or Ulcerative Colitis (UC). CD is an inflammation of the lower small bowel and/or the colon. Bacteria actually invade and cause inflammation in the entire wall of the intestine. UC, on the other hand, is an inflammation just of the lining of the colon. It usually starts in the rectum and left colon and may spread to the entire colon from there. It is now known that in both CD and UC that the bacterial make up is abnormal. This means that there are significantly more of the bad bacteria present than the good ones. These abnormal bacteria are called Firmicutes. Activity:: No lifting over 20 pounds or strenuous activity x24 hours Diet:: Small light meals x24 hours Discharge Orders Discharge Orders: Discharge Order (Routine); Ordered 03/26/20 Ordered By: Belia Shannon DS: Diagnosis Discharge Diagnosis (1) Rectal fissure: Status: Acute (2) Diverticulosis of colon without diverticulitis: Status: Acute (3) First degree hemorrhoids: Status: Acute (4) Adenomatous colon polyp: Status: Acute
--- NOTE | 2020-03-26 12:54 | W.COLOREPORT ---
Date of service: 03/26/20 Time of Service: 12:30 Colonoscopy Report Date of procedure: 03/26/20 Pre-op diagnosis general: rectal bleeding/abnormal CT Post-op diagnosis procedure note: other (anal fissure/adenomatous polyp @ 40cm/diverticuflar dx ) Procedure: ce BIOPSY polypcetomy- w/ cold forcepts Anesthesia proc note operative: MAC Estimated blood loss (mL): 1 Pathology: other Complications: None Indications: Patient was in the ER with bright red blood per rectum and had an abnormal CT. Prep: Miralax/Dulcolax Retraction Time: 12 mins Procedure Description: After informed consent was obtained the patient was taken to the procedure room and placed in a left decubitous position. Monitors were applied and a time out was done. The patients name, date of , procedure, allergies to medications and metal in their body was reviewed. The patient was then sedated. Once sedated and comfortable a rectal exam was done. External exam: anal fissure in 6oclock position- 50% healed.. Internal exam revealed a normal sphincter tone and no palpable masses. The scope was then introduced and retrofelexed. Grade II internal hemorrhoids were identified. The scope was then advanced to the cecum w/out difficulty. The TI and appendiceal orifice were identified. The prep was good. The scope was then slowly retracted over 12 minutes back into the rectum. Polyps were removed at 40cm-cold biting forcep.. She does have minor sigmoid diverticuli. There is no signs of active bleeding or infection. Transverse colon, which was read as some mild wall thickening on CT scan, and is normal. A biopsy was done at 60 cm. The scope was removed and the patient was woken up and taken back to Same day surgery in stable condition. The patient tolerated the procedure well and there were no immediate complications. Follow up: The patient does not require any further colonoscopies, Unless they develop changes in bowel habits or other new gastrointestinal complaints.
[2020-03-26 13:06] VITALS: BP 146/84; PULSE 69; RESP 16; TEMP 36.5; O2SAT 97
== END 2020-03-26 13:27 | disposition home or self-care (01) ==
PROVIDERS: PCP Emergency Medicine; Visit Provider Surgery
PROC: 0DJD8ZZ Inspection of Lower Intestinal Tract, Via Natural or Artificial Opening Endoscopic (ICD-10-PCS; CPT 45378; principal; 2020-03-26 10:45)
DX: K63.5 Polyp of colon (principal); F41.9 Anxiety disorder, unspecified; I10 Essential (primary) hypertension; K62.5 Hemorrhage of anus and rectum; K57.30 Diverticulosis of large intestine without perforation or abscess without bleeding; K64.1 Second degree hemorrhoids
CPT/HCPCS: 45380; 88305; J2001

== ENCOUNTER 2020-04-09 02:12 | Outpatient (CLI) | payer MEDICARE, BC, SELFPAY ==
--- NOTE | 2020-04-09 08:15 | DI.US_ITS ---
EXAM: US PELVIS TRANSVAGINAL CLINICAL HISTORY: LEFT OVARIAN MASS NOTED INCIDENTALLY ON CT SCAN, N83.8 TECHNIQUE: Transabdominal and transvaginal imaging was performed using standard protocol. COMPARISON: No exams were available for comparison FINDINGS: KIDNEYS: Kidneys are symmetric in size. No evidence of renal calculi. No evidence of hydronephrosis. No renal mass or cyst identified. The pelvic structures are suboptimally visualized both transabdominally and transvaginally. UTERUS: Anteverted. 4.9 x 2.4 x 3.7 cm. Endometrium: Grossly normal. Myometrium: 2 millimeters in thickness. No focal abnormality is visible. Cervix: Unremarkable. OVARIES: Right: Cyst or mass: Not seen Left: Cyst or mass: 3.2 centimeter left adnexal cyst. CUL-DE-SAC: Free fluid: None. IMPRESSION: Limited exam. The ovaries were not well seen. A 3.2 centimeter left-sided cyst is noted in the adnexa l region. DATA REPOSITORY:
== END 2020-04-09 02:32 ==
PROVIDERS: PCP Emergency Medicine; Visit Provider Surgery
DX: N83.8 Other noninflammatory disorders of ovary, fallopian tube and broad ligament (principal)
CPT/HCPCS: 76830; 76856

== ENCOUNTER 2020-07-13 01:00 | Outpatient (CLI) | payer MEDICARE, BC, SELFPAY ==
--- NOTE | 2020-07-13 08:00 | DI.US_ITS ---
EXAM: US PELVIS TRANSVAGINAL CLINICAL HISTORY: left ovarian cyst follow up,N83.8,Z98.890,BREAST CA. TECHNIQUE: Transabdominal and transvaginal pelvic ultrasound was performed using standard protocol. COMPARISON: CT CT ABDOMEN PELVIS W from 03/09/2020 US US PELVIS TRANSVAGINAL from 04/09/2020 FINDINGS: UTERUS: The uterus is nongravid anteverted, measuring 4.3 centimetres in length by 2 centimeters AP x 2.5 arnie timeters wide. There is no fluid in the endometrial canal. Endometrial stripe thickness is 3-4 mill imeters. There are no obvious uterine fibroids. Nabothian cysts are noted in the upper cervix. OVARIES: Right ovary is not seen. Left ovary measures 2.8 x 2.3 x 3.3 centimetres. It contains a cyst measuring 2.9 x 2.1 x 2.7 centim etres. On the previous study this cyst measured 2.6 x 2.2 x 3.2 centimetres. There no extraovarian adnexal masses nor free fluid in the cul-de-sac. Vascular flow is demonstrated within the left ovary.. Kidneys: Right kidney measures 11 centimetres. Left kidney measures 10.2 cm. Kidneys appear unremar kable. IMPRESSION: 1. Normal sonographic appearance of the kidneys. 2. Normal tgy-[id number]-ygkipqusj uterus with endometrial stripe within normal limits. 3. Right ovary not seen. Cyst in the left ovary as described above. Cyst size is similar to the ceasar or ultrasound examination of March 2020. 4. There is no free fluid in the cul-de-sac. DATA REPOSITORY:
== END 2020-07-13 01:20 ==
PROVIDERS: PCP Emergency Medicine; Visit Provider Obstetrics & Gynecology
DX: N83.292 Other ovarian cyst, left side (principal); C50.919 Malignant neoplasm of unspecified site of unspecified female breast; Z98.890 Other specified postprocedural states
CPT/HCPCS: 76830; 76856

== ENCOUNTER 2021-07-15 02:38 | Outpatient (CLI) | payer MEDICARE, BC, SELFPAY ==
[2021-07-15 16:19] LABS: Anion Gap 10.1 mmol/L (3-11); BUN 15 mg/dL (7-18); CO2 25.9 mmol/L (21.0-32.0); CREATININE 0.7 mg/dL (0.55-1.02); Calcium 8.9 mg/dL (8.5-10.1); Chloride 103 mmol/L (98-107); Glucose 94 mg/dL (74-106); Potassium 4.2 mmol/L (3.5-5.1); Sodium 139 mmol/L (136-145); TSH 1.83 uIU/mL (0.36-3.74)
== END 2021-07-15 02:39 | disposition home or self-care (01) ==
LOC: LBO 02:39
PROVIDERS: PCP Emergency Medicine; Visit Provider Emergency Medicine
DX: I10 Essential (primary) hypertension (principal); E03.9 Hypothyroidism, unspecified
CPT/HCPCS: 36415; 80048; 84443

== ENCOUNTER 2021-08-25 00:46 | Outpatient (CLI) | payer MEDICARE, BC, SELFPAY ==
--- NOTE | 2021-08-25 07:00 | DI.US_ITS ---
Exam(s) US PELVIS TRANSVAGINAL EXAM: US PELVIS TRANSVAGINAL CLINICAL HISTORY: Recheck left ovarian cyst for stability, mass lt ovary, N83.8 TECHNIQUE: Ultrasound of the pelvis was performed both transabdominal and transvaginal. COMPARISON: US US PELVIS TRANSVAGINAL from 07/13/2020 FINDINGS: UTERUS: Nongravid and anteverted Measures 6 cm length x 3.7 cm AP x 4.3 cm wide. There are no uterine fibroids. Endometrial thickness measures 2.8 mm. There is no fluid in the endometrial canal. CERVIX: There is a small nabothian cyst in cervix noted RIGHT OVARY: Right ovary was not identified on this study. LEFT OVARY: Measures 3.4 x 2.1 x 3.7 cm Contains a unilocular cyst which measures 2.5 x 1.9 x 2.7 cm CUL-DE-SAC: No free fluid evident. IMPRESSION: 1. Normal appearing uterus and age-appropriate endometrium. 2. There is a 2.5 x 1.9 x 2.7 cm cyst in the left ovary which require follow-up given this patient's age. No surrounding fluid. 3. The opposite-right ovary was not identified on this study. There is no free fluid in the cul-de-sac. DATA REPOSITORY:
== END 2021-08-25 01:06 ==
PROVIDERS: PCP Emergency Medicine; Visit Provider Obstetrics & Gynecology
DX: N83.8 Other noninflammatory disorders of ovary, fallopian tube and broad ligament (principal); N83.292 Other ovarian cyst, left side
CPT/HCPCS: 76830; 76856

== ENCOUNTER → 2022-01-03 02:18 | Outpatient (CLI) | payer MEDICARE, BC, SELFPAY ==
--- NOTE | 2022-01-03 07:30 | DI.CT_ITS ---
Exam(s) CT CHEST WO EXAM: CT CHEST WO CLINICAL HISTORY: chronic cough for years,R05.3 TECHNIQUE: Imaging Protocol: Axial computed tomography images with coronal and sagittal reformatted images were created and reviewed CONTRAST MATERIAL: Noncontrast. COMPARISON: CT CHEST WITH CONTRAST from 01/04/2011 CT PELVIC/LOWER ABD WITHOUT CONT from 07/20/2011 CT LUMBAR SPINE WITHOUT CONTRAST from 07/20/2011 CT LUMBAR SPINE WITHOUT CONTRAST from 07/20/2011 CR XR lumbar spine complete from 12/25/2018 FINDINGS: Tracheobronchial tree: No bronchiectasis or mucous plugging. Mediastinum and Antonia: No dominant adenopathy or fluid collection. Pulmonary parenchyma: Mild bilateral peripheral scarring, greatest at the left upper lobe.. Stable 9 millimeter nodule anterior left upper lobe. Few other tiny nodules are seen, less than 5 millimeter s in size. Area of scarring in the inferior right upper lobe. No significant emphysematous changes. Pleura: No effusion or pneumothorax. Heart: The heart is not dilated. Mild coronary artery calcifications are seen. Mitral annular calcif ications are seen. Aorta: Thoracic aorta non-dilated. Upper abdomen: Moderate size hiatal hernia Lymph nodes: Within normal limits. Bones: Syndesmophyte formation lung the anterior midthoracic spine. Old sternal fracture. No thorac ic compression fractures. Soft tissues: Unremarkable. IMPRESSION: Mild bilateral peripheral scarring. No acute infiltrates. Stable 9 millimeter nodule left upper lob e. RADIATION DOSE DELIVERED: 441.06mGy.cm Total DLP DATA REPOSITORY: All CT scans at this facility are submitted to the National Radiology Data Registry (NRDR) Dose Index Registry (DIR) with the [employer] ([employer]). RADIATION OPTIMIZATION: All CT scans at this facility use at least one of these dose optimization te chniques: automated exposure control; mA and/or kV adjustment per patient size (includes targeted exa ms where dose is matched to clinical indication); or iterative reconstruction.
== END ==
PROVIDERS: PCP Nurse Practitioner Family; Visit Provider Nurse Practitioner Family
DX: R05.3 Chronic cough (principal); R91.1 Solitary pulmonary nodule; J98.4 Other disorders of lung
CPT/HCPCS: 71250

== ENCOUNTER 2022-02-11 11:54 | Outpatient (CLI) | payer MEDICARE, BC, SELFPAY ==
--- NOTE | 2022-02-11 11:45 | RT.EKG_ITS ---
APPROVED REPORT Exam: Resting ECG Reason for Exam: sob Patient Location: O HR:75 bpm ECG Measurements Heart Rate 75 AXIS ME 158 P 51 QRSd 134 QRS -16 QT 431 T 105 QTc 481 Conclusion Sinus rhythm...normal P axis, V-rate 60- 99 Left bundle branch block...QRSd>120, broad/notched R ST elevation secondary to IVCD...Multiple VCG criteria
== END 2022-02-11 11:55 | disposition home or self-care (01) ==
LOC: DI.CM 11:56
PROVIDERS: PCP Nurse Practitioner Family; Visit Provider Nurse Practitioner
DX: R06.02 Shortness of breath (principal); R94.31 Abnormal electrocardiogram [ECG] [EKG]; I44.7 Left bundle-branch block, unspecified
CPT/HCPCS: 93010

== ENCOUNTER → 2022-02-17 13:30 | Outpatient (CLI) | payer MEDICARE, BC, SELFPAY ==
--- NOTE | 2022-02-17 12:45 | DI.US_ITS ---
APPROVED REPORT EXAM: Comprehensive 2D, Doppler, and color-flow Echocardiogram Patient Location: Out-Patient Rehab Liaison: Paula Mcmullen RDCS (AE) Indications: SOB, Sleep apnea Other Information Study Quality: Adequate Conclusion Normal left ventricular wall thickness and chamber size. Estimated ejection fraction is 55 to 60%. Wall motion is normal Normal right ventricular size and systolic function Both atria are normal in size Aortic valve is mildly sclerotic without stenosis or regurgitation Mitral annular calcification. Mild mitral regurgitation Normal tricuspid valve with mild regurgitation. Estimated right ventricular systolic pressure is 29 mmHg Mildly dilated ascending aorta measuring 3.68 cm Wall motion Left Ventricle The left ventricle is normal size. The left ventricular systolic function is normal. The left ventric ular ejection fraction is within the normal range. There is normal left ventricular wall thickness. T here is normal LV segmental wall motion. There is no ventricular septal defect visualized. LVEF is 55 -60%. Right Ventricle The right ventricle is normal size. The right ventricular systolic function is normal. The RVSP is 28 .7mmHg. Atria The left atrium size is normal. The right atrium size is normal. The interatrial septum is intact wit h no evidence for an atrial septal defect. Aortic Valve The Aortic valve is mildly sclerotic. There is no aortic valvular stenosis. No aortic regurgitation i s present. Mitral Valve Moderate mitral annular calcification. No evidence of mitral valve stenosis. Mild mitral regurgitatio n. Tricuspid Valve The tricuspid valve is normal in structure. There is no tricuspid valve stenosis. Mild tricuspid regu rgitation. Pulmonic Valve The pulmonary valve is normal in structure. There is no pulmonic valvular stenosis. There is no pulmo ollie valvular regurgitation. Great Vessels The aortic root is normal in size. The ascending aorta is mildly dilated. Aortic arch is normal in ca liber. IVC is normal in size and collapses >50% with inspiration. Pericardium There is no pericardial effusion. 2D Dimensions IVSD d PLAX 0.85 cm F: 0.6-1.0 LV Vol A2C d MOD 78.9 mL LVPW d PLAX 0.85 cm F: 0.6 - 1.0 LV Vol A4C d MOD 85.9 mL LVID d PLAX 4.54 cm F: 3.8 - 5.2 LA vol/ BSA A2C s A-L 18.1 mL/m2 LVDs 3.05 cm F: 2.2 - 3.5 LA vol/ BSA A4C s A-L 16.1 mL/m2 Ao Root d 3.02 cm F: 2.7 - 3.3 LA Vol/ BSA Biplane s A-L 18.4 mL/m2 RA Area A4C 11.45 cm2 LA Area A4C s MOD 11.66 cm2 RA Vol/ BSA A4C s A-L 14.9 mL/m2 LA Area A2C s MOD 13.33 cm2 Ao Asc Diam d 3.68 cm F: 2.3 - 3.1 LV EF A4C MOD 55.3 % LV EF Teichholz 61.1 % LV EF A2C MOD 58.3 % LVEF (Mendez's) 57.49 % F: 54 - 74 LV EF Biplane MOD 57.5 % LV Volume 65.85 mL F: 46 - 106 SV 48.43 mL LV Volume Index 37.20 mL/m2 F: 29 - 61 SV Index 27.28 mL/m2 LV Vol Biplane MOD 84.2 mL FS 32.60 % M-Mode TAPSE 2.46 cm (M/F) >1.7 LV Diastology MV E' medial 0.078 (>0.07 m/s) E/A Ratio 0.9 LV E/e MED 10.20 (<14) MV E Vmax 0.80 (0.4-1.3 m/s) MV E' lateral 0.081 (>0.1 m/s) MV A Vmax 0.90 (0.4-1.3 m/s) LV E/e LAT 9.80 (<14) MV E/A Ratio 0.87 MV E/E' medial 10.22 MV E/E' lateral 9.81 Aortic Valve LVOT Area 2.98 cm2 AoV Area Vmax 2.36 cm2 LVOT Vmax 1.06 m/s AoV Area/ BSA (Vmax) 1.33 cm2/m2 LVOT Mean Randy. 0.65 m/s BARBIE Mean Randy. 2.15 cm2 LVOT Peak Grad 4.5 mmHg BARBIE Mean Randy. Index 1.21 cm2/m2 LVOT Mean Grad 2.0 mmHg LVOT VTI 0.215 m LVOT Diam s 1.90 cm AoV Vmax 1.34 m/s Velocity Ratio 0.79 AoV Mean Randy. 0.90 m/s AoV Peak Grad 7.2 mmHg LVOT SV 64.10 mL AoV Mean Grad 3.6 mmHg AoV VTI 0.247 m AoV Area VTI 2.60 cm2 AoV Area/ BSA (VTI) 1.46 cm/m2 Mitral Valve MV DT 288 (160-240 msec) MV PHT 84 msec MV Area PHT 2.63 cm2 MV VTI 0.352 m MV Area VTI 1.82 (4.0-6.0 cm2) Pulmonary Valve PV Vmax 1.07 (0.5-1.5 m/s) RVOT Peak Gr. 2.29 mmHg PV Peak Grad 4.6 mmHg RVOT Mean Gr. 1.00 mmHg PV Mean Grad 2.3 mmHg RVOT VTI 0.125 m PV VTI 0.167 m RVOT Vmax 0.76 m/s Tricuspid Valve TR Peak Grad 25.6 mmHg TR Vmax 2.53 m/s RA Pressure 3.00 mmHg RVSP (TR) 28.7 mmHg
== END ==
PROVIDERS: PCP Nurse Practitioner Family; Visit Provider Nurse Practitioner
DX: G47.33 Obstructive sleep apnea (adult) (pediatric) (principal); R06.02 Shortness of breath
CPT/HCPCS: 93306

== ENCOUNTER 2022-03-01 09:37 | Emergency (ER) | payer MEDICARE, BC, SELFPAY ==
[2022-03-01 09:49] VITALS: BP 150/62; PULSE 78; RESP 18; TEMP 37.1; O2SAT 95
--- NOTE | 2022-03-01 10:00 | DI.RAD_ITS ---
Exam(s) XR SHOULDER RT COMPLETE 2+V XR HUMERUS RT EXAM: XR HUMERUS RT and XR shoulder RT complete 2 V CLINICAL HISTORY: fall onto R upper arm, r/o fx. TECHNIQUE: 2D digital imaging was performed of the right humerus. Six images were obtained. AP, Gr ashey, Y and lateral views were obtained. COMPARISON: CR XR SHOULDER RT COMPLETE 2+V from 03/01/2022 FINDINGS: BONES: There is an acute comminuted fracture of the proximal humerus through the surgical neck and ex tending proximally into the greater tuberosity. Mild displacement of the fracture fragments is noted . The fractures also mildly impacted. No bony destructive lesion is seen. Degenerative changes are seen at the acromioclavicular joint. The visualized elbow is unremarkable. SOFT TISSUE: Normal. IMPRESSION: Acute comminuted fracture of the proximal right humerus involving the surgical neck and the greater t uberosity. Fracture fragments are mildly displaced and impacted. DATA REPOSITORY: RADIATION DOSE DELIVERED:
--- NOTE | 2022-03-01 10:00 | DI.CT_ITS ---
Exam(s) CT HEAD CERV SPINE FACIAL WO EXAM: CT HEAD CERV SPINE FACIAL WO CLINICAL HISTORY: fall with head injury, R facial pain, r/o fx. TECHNIQUE: Imaging Protocol: Axial computed tomography images with coronal and sagittal reformatted images were created and reviewed COMPARISON: No exams were available for comparison FINDINGS: CT Head: Ventricles and Extra axial spaces: Normal in size and morphology for the patient's age. Hemorrhage: None. Cerebral parenchyma: No acute territorial infarct. There are areas of decreased attenuation in the w claudio matter most consistent with small vessel ischemic disease. Midline shift: None. Brainstem/Cerebellum: Normal. Calvarium: Normal. Visualized Paranasal sinuses/Mastoids: Clear. Soft Tissues: Unremarkable. CT Face: Facial Bones: No definite fracture is noted in facial bones. Sinuses and Mastoids: There is mild mucosal thickening in the right maxillary sinus. The remaining visualized paranasal sinuses are clear. No air-fluid levels are present. Globes, extraocular muscles, optic nerves and retrobulbar fat: Normal. Upper aerodigestive tract: Normal. Mandible and bilateral temporomandibular joints: Normal. Soft tissues: Normal. CT Cervical Spine: Bones: No acute fracture or subluxation. Degenerative changes are seen in the cervical spine. Soft Tissues: Unremarkable. Lung Apices: Clear. IMPRESSION: 1. No acute intracranial process. 2. No acute fracture or subluxation in the cervical spine. 3. No acute facial fracture. 4. Results of this exam have been verbally communicated with provider. RADIATION DOSE DELIVERED: 1,484.75mGy.cm Total DLP DATA REPOSITORY: All CT scans at this facility are submitted to the National Radiology Data Registry (NRDR) Dose Index Registry (DIR) with the [employer] ([employer]). RADIATION OPTIMIZATION: All CT scans at this facility use at least one of these dose optimization te chniques: automated exposure control; mA and/or kV adjustment per patient size (includes targeted exa ms where dose is matched to clinical indication); or iterative reconstruction.
--- NOTE | 2022-03-01 10:09 | ED.GENADUL_ITS ---
Discharge Plan Disposition Patient Disposition: HOME Condition: Stable Discharge Details Clinical Impression: Fracture of proximal end of right humerus, Closed head injury with brief loss of consciousness Primary Care Provider: Guerda Haywood ED Provider: Nicci Faye Home Meds and New Rx's Prescriptions: New oxycodone 5 mg tablet 5 mg PO Q6H PRN (Reason: pain) Qty: 10 0RF Continued cholecalciferol (vitamin D3) 50 mcg (2,000 unit) capsule 50 mcg PO DAILY [id number] 333-133-5 mg tablet See Rx Instructions PO DAILY Rx Instructions: PO daily; X-LEAR SALINE SPRAY NS Rx Instructions: 03/01/22-not taking fexofenadine [Ema Allergy] 60 mg tablet 60 mg PO QHS calcium carbonate [Tums] 200 mg calcium (500 mg) tablet,chewable 200 mg PO PRN mometasone 0.1 % cream 1 applic topical DAILY PRN (Reason: skin irritation) Qty: 45 0RF levothyroxine [Synthroid] 50 mcg tablet 50 mcg PO DAILY Qty: 90 2RF Advair HFA 230-21 mcg/actuation HFA aerosol inhaler 2 puff inhalation BID Qty: 12 4RF acetaminophen [Acetaminophen Extra Strength] 500 MG tablet 500 - 1,000 tab PO BID omeprazole 20 MG capsule,delayed release(DR/EC) 20 mg PO DAILY Qty: 90 Label Comments: 06/14/16 NOT TAKING. md 10/18/16: Pt is taking. -BR 11/25/16: Taking as prescribed. -BR multivitamin [Daily Multi-Vitamin] 1 EACH tablet 1 ea PO DAILY amlodipine 5 mg tablet 5 mg PO DAILY Qty: 90 4RF cetirizine [Zyrtec] 10 mg Tablet 10 mg PO DAILY ibuprofen 200 mg Tablet 600 mg PO TID PRN lutein-zeaxanthin 20 mg- 1,000 mcg Capsule 1 cap PO DAILY Discharge Instructions Instructions: Head Injury (ED), Proximal Humerus Fracture (ED) Additional Instructions: Your CT scan today of your head and neck is reassuring and shows no evidence of acute concerning or significant findings. Your x-ray today noted a fracture of your right upper arm. This was reviewed with orthopedics and they are recommending a sling to keep it in place at all times until follow-up with orthopedics in the office. You can remove the sling briefly to shower. You can apply ice to the affected area several times daily for 20 minutes at a time. Alternate tylenol and motrin as needed and directed for pain. Take the oxycodone for pain not relieved with Tylenol or Motrin. You have been placed on orthopedics follow-up list for reevaluation in the next week. You can call their office to schedule or confirm this appointment. Return immediately to the emergency department if you develop any worsening or new concerning symptoms. Referrals: Johnny Colon MD [ [facility] STAFF PHYSICIAN] - Discharge Data Discharge Date/Time-TO BE ENTERED AT DEPARTURE: 03/01/22 12:14 Discharge Physician: Nicci Faye Medical Decision Making 76-year-old female with a history of breast cancer in remission, fibromyalgia, hypothyroidism, hypertension, depression, right hip replacement, bilateral knee replacements who presents with right shoulder and upper arm pain and right facial pain status post mechanical fall last night. There was questionable right facial injury with possible LOC reported. She is alert and oriented x3. She has pain with range of motion and tenderness of the right shoulder right upper arm. Suspect humerus fracture. She has mild tenderness to the right facial cheek. Lungs clear bilaterally and abdomen is soft and nontender. No midline spinal tenderness. Considering her age, will obtain CT head, facial bones and cervical spine. Will refer for right shoulder and humerus x-rays. We will hold on narcotic pain medication pending CT head. CT head, cervical spine and facial bones negative. Xrays of shoulder and humerus note fracture proximal humerus. Imaging reviewed with Dr. Colon and no indication for additional imaging at this time. Recommend sling and follow-up outpatient. Patient was given a dose of oxycodone here and prescription sent electronically to her pharmacy. Patient placed on orthopedic follow-up list. Usual and customary return precautions given prior to discharge. Medical Records Medical records reviewed: Yes I reviewed the patient's medical records. Imaging Data Radiologic Study: Radiologist's impression: CT HEAD CERV SPINE ? FACIAL WO CLINICAL HISTORY: ? fall with head injury, R facial pain, r/o fx. ? TECHNIQUE:? Imaging Protocol: Axial computed tomography images with coronal and sagittal reformatted images were created and reviewed COMPARISON:? No exams were available for comparison FINDINGS: CT Head: Ventricles and Extra axial spaces: Normal in size and morphology for the patient's age. Hemorrhage: None. Cerebral parenchyma: No acute territorial infarct.? There are areas of decreased attenuation in the white matter most consistent with small vessel ischemic disease.? Midline shift: None. Brainstem/Cerebellum: Normal. Calvarium: Normal. Visualized Paranasal sinuses/Mastoids: Clear. Soft Tissues: Unremarkable. CT Face: Facial Bones:? No definite fracture is noted in facial bones. Sinuses and Mastoids:? There is mild mucosal thickening in the right maxillary sinus.? The remaining visualized paranasal sinuses are clear.? No air-fluid levels are present.? Globes, extraocular muscles, optic nerves and retrobulbar fat:? Normal. Upper aerodigestive tract: Normal. Mandible and bilateral temporomandibular joints:? Normal. Soft tissues: Normal. CT Cervical Spine: Bones: No acute fracture or subluxation. Degenerative changes are seen in the cervical spine. Soft Tissues: Unremarkable. Lung Apices: Clear. IMPRESSION: 1. No acute intracranial process. 2. No acute fracture or subluxation in the cervical spine. 3. No acute facial fracture. XR HUMERUS RT and XR shoulder RT complete 2 V CLINICAL HISTORY: ? fall onto R upper arm, r/o fx.? TECHNIQUE:? 2D digital imaging was performed of the right humerus.? Six images were obtained.? AP, Grashey, Y and lateral views were obtained. COMPARISON:? CR XR SHOULDER RT COMPLETE 2+V from 03/01/2022 FINDINGS: BONES: There is an acute comminuted fracture of the proximal humerus through the surgical neck and extending proximally into the greater tuberosity.? Mild displacement of the fracture fragments is noted.? The fractures also mildly impacted.? No bony destructive lesion is seen. Degenerative changes are seen at the acromioclavicular joint.? The visualized elbow is unremarkable. SOFT TISSUE: Normal. IMPRESSION: Acute comminuted fracture of the proximal right humerus involving the surgical neck and the greater tuberosity.? Fracture fragments are mildly displaced and impacted.? HPI General Mode of arrival: ambulatory . Date/Time Provider Initiated Documentation: 03/01/22 09:38 . Limitations to Documentation: no limitations . Information obtained by: patient . HPI Narrative: Patient is a 76-year-old female who presents with right shoulder and upper arm pain after mechanical fall last night. Patient states she was walking when she tripped over a rug and fell and hit her right shoulder on the ground. Her daughter who is present states she witnessed this fall and thinks she hit her facial cheek on the ground as well and may have had a brief loss of consciousness. Patient states she is unsure but agrees she may have passed out briefly. She denies any significant headache, vomiting, chest pain, abdominal pain or other extremity pain or injury. She was able to be assisted from the floor and has been able to ambulate without hip or knee pain. She took ibuprofen last night with relief and morning without relief. Related Data Home Medications Medication Instructions Recorded Confirmed acetaminophen 500 mg tablet 500 - 1,000 tab PO BID 10/18/12 03/01/22 (Acetaminophen Extra Strength) omeprazole 20 mg capsule,delayed 20 mg PO DAILY #90 tab-caps 10/18/12 03/01/22 release multivitamin (Daily Multi-Vitamin 1 ea PO DAILY 04/14/17 03/01/22 tablet) lutein 20 mg-zeaxanthin 1,000 mcg 1 cap PO DAILY 03/09/20 03/01/22 capsule amlodipine 5 mg tablet 5 mg PO DAILY #90 tab-caps 02/11/21 03/01/22 levothyroxine 50 mcg tablet 50 mcg PO DAILY #90 tab-caps 07/13/21 03/01/22 (Synthroid) X-LEAR SALINE SPRAY NS 10/15/21 02/11/22 [id number]-[id number]-sryr 333 mg-133 See Rx Instructions PO DAILY 10/15/21 03/01/22 mg-5 mg tablet cholecalciferol (vitamin D3) 50 50 mcg PO DAILY 10/15/21 03/01/22 mcg (2,000 unit) capsule fluticasone propionate 230 2 puff inhalation BID #12 grams 01/14/22 02/11/22 mcg-salmeterol 21 mcg/actuation HFA inhaler (Advair HFA) calcium carbonate 200 mg calcium 200 mg PO PRN 02/10/22 03/01/22 (500 mg) chewable tablet (Tums) fexofenadine 60 mg tablet (Ema 60 mg PO QHS 02/10/22 02/11/22 Allergy) mometasone 0.1 % topical cream 1 applic topical DAILY PRN skin 02/10/22 03/01/22 irritation #45 grams cetirizine 10 mg tablet (Zyrtec) 10 mg PO DAILY 03/01/22 03/01/22 ibuprofen 200 mg tablet 600 mg PO TID PRN 03/01/22 03/01/22 oxycodone 5 mg tablet 5 mg PO Q6H PRN pain #10 tabs 03/01/22 Previous Rx's Medication Instructions Recorded amlodipine 5 mg tablet 5 mg PO DAILY #90 tab-caps 02/11/21 levothyroxine 50 mcg tablet 50 mcg PO DAILY #90 tab-caps 07/13/21 (Synthroid) fluticasone propionate 230 2 puff inhalation BID #12 grams 01/14/22 mcg-salmeterol 21 mcg/actuation HFA inhaler (Advair HFA) mometasone 0.1 % topical cream 1 applic topical DAILY PRN skin 02/10/22 irritation #45 grams oxycodone 5 mg tablet 5 mg PO Q6H PRN pain #10 tabs 03/01/22 Allergies Allergy/AdvReac Type Severity Reaction Status Date / Time prochlorperazine edisylate AdvReac Intermediate agitation Verified 03/01/22 09:53 [From Compazine] prochlorperazine maleate AdvReac Intermediate agitation Verified 03/01/22 09:53 [From Compazine] metoclopramide HCl AdvReac disorientat Verified 03/01/22 09:53 [From Reglan] ion General Stated Complaint: Orthopedic TRAVIS: 3 Review of Systems All systems reviewed & are unremarkable except as noted in HPI and below Constitutional Constitutional: Denies chills, Denies excessive sweating, Denies fatigue, Denies fever(s), Denies weakness and Denies weight loss Eyes Eyes: Reports system reviewed and no additional complaints, except as documented and Denies blurry vision ENT Ears, Nose, Mouth, and Throat: Denies vertigo, Denies dizziness, Denies otalgia, Denies nasal congestion, Denies sore throat and Denies throat swelling Cardiovascular Cardiovascular: Denies chest pain, Denies syncope, Denies rapid heart rate and Denies dyspnea Respiratory Respiratory: Denies chest congestion, Denies cough, Denies pain on inspiration and Denies dyspnea Gastrointestinal Gastrointestinal: Denies abdominal pain, Denies diarrhea and Denies vomiting Genitourinary Genitourinary: Denies hematuria, Denies dysuria and Denies flank pain Musculoskeletal Musculoskeletal: Denies back pain and Denies joint swelling Comments: R shoulder/upper arm pain, R facial pain Integumentary/Breasts Skin/Breast: Denies lesions and Denies rash Neurologic Neurologic: Denies behavioral changes, Denies confusion, Denies vertigo, Denies dizziness, Denies syncope, Denies localized weakness and Denies weakness Psychiatric Psychiatric: Denies behavioral changes, Denies confusion and Denies depression Endocrine Endocrine: Denies excessive sweating and Denies fatigue Hematologic/Lymphatic Hematologic/Lymphatic: Denies easy bruising and Denies lymphadenopathy Allergic/Immunologic Allergic/Immunologic: Denies throat swelling PFSH All Active Problems (Updated 03/01/22 @ 11:55 by Nicci aFye DO) Fracture of proximal end of right humerus (Acute) Closed head injury with brief loss of consciousness (Acute) Shortness of breath (Acute) Lung nodule (Acute) Multiple sclerosis (Chronic) Previously on medication but has been in remission for years Obstructive sleep apnea (Chronic) CPAP nightly History of left breast cancer (Chronic ~2010) Left IDC s/p lumpectomy, chemo, radiation Hypothyroidism (Chronic) Essential hypertension (Chronic) Depressive disorder (Chronic) Sensorineural hearing loss of left ear (Chronic) Left ovarian cyst (Chronic) Chronic cough (Chronic) Allergic rhinitis (Chronic) Arias's disease (Chronic) Rosacea (Chronic) Primary fibromyalgia syndrome (Chronic) Fibromyalgia Osteoarthritis (Chronic) Gastroesophageal reflux disease (Chronic) First degree hemorrhoids (Chronic) Medical History Dysfunctional uterine bleeding Invasive ductal carcinoma of left breast (~2010) S/p lumpectomy, chemo, radiation Rectal bleeding Surgical History History of bilateral ligation of fallopian tubes (1971) History of thumb surgery (~1999) Bilateral thumb arthroplasty Hx of cataract surgery S/P colonoscopy (2019) S/P ORIF (open reduction internal fixation) fracture (2009) Right wrist S/P right knee arthroscopy (1991) S/P YAG capsulotomy, bilateral Status post carpal tunnel release (~2009) Status post lateral meniscectomy of right knee (1961) Status post left foot surgery (2016) Exostectomy Status post left knee replacement (2005) Status post partial mastectomy of left breast (2010) Status post revision of total replacement of right knee (2012) Status post right breast lumpectomy (1988) Status post right knee replacement (1996) Status post total hip replacement, right (2014) Family History Mother Diabetes Lung cancer Hypertension Father Stroke Hypertension Lung cancer Sister Dementia Hypertension Brother Diabetes Hypertension Liver cancer Daughter No problems noted. Daughter No problems noted. Maternal Grandfather No problems noted. Maternal Grandmother No problems noted. Paternal Grandfather No problems noted. Paternal Grandmother No problems noted. Social History Smoking/Tobacco Use Status: Former Tobacco Use Quit Date: 07/31/94 Smoking risk assessment performed?: Yes Alcohol Intake: current Alcohol Intake frequency: 0-2 drinks per day Alcohol type: wine Drug use: Never Substance use type: does not use Do you feel safe at home: Yes Do you feel safe in your relationship?: Yes Exam Const General: cooperative Orientation: alert, awake and oriented x3 HENMT Head: normal to inspection Ears: hearing grossly normal bilaterally, external ears normal and TM's normal bilaterally General nose exam: external nose normal Face images: 1. Mild edema and tenderness to palpation. No crepitus or open wounds. Mouth: oral mucosae normal Teeth and gingiva: dentition normal Eyes General: appearance normal, both eyes and all related structures Eyelids: eyelids normal Pupils: PERRL EOM: EOM intact bilaterally Neck Neck: normal visual inspection Chest Chest: normal inspection of the chest and normal palpation of entire chest wall Resp Effort & Inspection: normal respiratory effort and able to speak in complete sentences Auscultation: clear to auscultation bilaterally Cardio Rate: regular rate Rhythm: regular rhythm GI Inspection: normal to inspection and no abdominal wall ecchymosis Palpation: soft, not firm, no guarding, no hepatosplenomegaly, no masses and nontender Auscultation: normal bowel sounds Back/Spine/Pelvis Cervical Spine: No cervical spinal tenderness Thoracic/Lumbar Spine: thoracic and lumbar spine normal to inspection, No thoracic spinal tenderness and No lumbar spinal tenderness Pelvis: no pain with anterior-posterior compression Skin General skin exam: no rashes or lesions noted Neuro General: patient alert and patient awake Cognition: normal cognition Speech: speech normal Gait: normal gait Motor: muscle tone normal throughout Sensory Exam: no sensory deficits noted Extrem Other: Tenderness to palpation to right anterior shoulder and proximal upper arm. Ther e is limitation of range of motion of right upper extremity due to pain. There is no obvious deformity but crunching noted in right upper arm with slight movement. Tenderness to palpation to right elbow, wrist or hand. Right radial pulse intact. There is normal range of motion to the left upper extremity and bilateral lower extremities without pain or tenderness. Psych Appearance: grossly normal Mental Status: mental status grossly normal Speech and Movement: speech and movement normal Affect: normal affect Thought Process: normal Course Vital Signs Vital signs: Vital Signs Temperature 98.8 F 03/01/22 09:49 Pulse 78 03/01/22 09:49 Respiratory Rate 18 03/01/22 09:49 Blood Pressure 150/62 H 03/01/22 09:49 Pulse Oximetry 95 03/01/22 09:49 Temperature 98.8 F 03/01/22 09:49 Temperature Source Temporal Artery Scan 03/01/22 09:49 Pulse 78 03/01/22 09:49 Respiratory Rate 18 03/01/22 09:49 Blood Pressure 150/62 H 03/01/22 09:49 Blood Pressure Position Sitting 03/01/22 09:49 Pulse Oximetry 95 03/01/22 09:49 Oxygen Delivery Method Room Air 03/01/22 09:49 Oxygen Flow Rate 0 03/01/22 09:49 Pain Level 10 03/01/22 09:49 Procedures Orthopedic Splinting/Casting Injury #1: Side: right Upper Extremity Injury Location: shoulder Upper Extremity Immobilizer: sling/shoulder immobilizer
[2022-03-01] MEDS: Acetaminophen 500 MG TAB 1000 MG PO (11:05)
[2022-03-01] MEDS: oxyCODONE 5 MG TAB PO (11:27)
--- NOTE | 2022-03-01 11:56 | NUR.NOTE ---
proximal humerus fx, w/ sling referral to orthopaedics p/ Dr. Yunier MACK
== END 2022-03-01 12:14 | disposition home or self-care (01) ==
PROVIDERS: Emergency Provider Physician Assistant; PCP Nurse Practitioner Family
DX: S42.291A Other displaced fracture of upper end of right humerus, initial encounter for closed fracture (principal); W01.0XXA Fall on same level from slipping, tripping and stumbling without subsequent striking against object, initial encounter; S09.8XXA Other specified injuries of head, initial encounter
CPT/HCPCS: 99284; 70450; 70486; 72125; 73030; 73060; 99283

== ENCOUNTER 2022-03-08 13:46 | Outpatient (CLI) | payer MEDICARE, BC, SELFPAY ==
--- NOTE | 2022-03-08 11:15 | DI.RAD_ITS ---
Exam(s) XR SHOULDER RT COMPLETE 2+V EXAM: XR SHOULDER RT COMPLETE 2+V INDICATION: HUMERUS FX F/U. COMPARISON: CR XR SHOULDER RT COMPLETE 2+V from 03/01/2022 TECHNIQUE: 2D digital imaging was performed. Two views. FINDINGS: There has been no change in the alignment of the comminuted fracture of the humeral head. There is s ome inferior subluxation of the humeral head with respect to the glenoid is widening of the joint spa ce which could indicate an effusion. There are underlying degenerative changes of the AC joint and g lenoid. DATA REPOSITORY: RADIATION DOSE DELIVERED:
== END 2022-03-08 13:47 | disposition home or self-care (01) ==
LOC: DIORS 13:46
PROVIDERS: PCP Nurse Practitioner Family; Referring Provider Nurse Practitioner Family; Visit Provider Student in an Organized Health Care Education/Training Program
DX: S42.201A Unspecified fracture of upper end of right humerus, initial encounter for closed fracture (principal); X58.XXXA Exposure to other specified factors, initial encounter
CPT/HCPCS: 99204; 99214; 73030

== ENCOUNTER 2022-03-23 14:44 | Outpatient (CLI) | payer MEDICARE, BC, SELFPAY ==
--- NOTE | 2022-03-23 09:45 | DI.RAD_ITS ---
Exam(s) XR SHOULDER RT COMPLETE 2+V EXAM: XR SHOULDER RT COMPLETE 2+V CLINICAL HISTORY: f/u R PROXIMAL HUMERUS FRACTURE. TECHNIQUE: 2D digital imaging was performed. COMPARISON: CR XR SHOULDER RT COMPLETE 2+V from 03/01/2022 CR XR HUMERUS RT from 03/01/2022 CR XR SHOULDER RT COMPLETE 2+V from 03/08/2022 FINDINGS: Two views Comminuted somewhat displaced fracture site at the head-neck of the humerus is again noted. Greater tuberosity again noted be involved. Some soft tissue calcifications now evident, possibly related to calcified hematoma and fracture fragments. There is no dislocation of the glenohumeral joint nor si gnificant diminution of the subacromial space. No fracture of the osseous glenoid and AC joint appea rs intact. No adjacent rib fractures evident IMPRESSION: DATA REPOSITORY: RADIATION DOSE DELIVERED:
== END 2022-03-23 14:45 | disposition home or self-care (01) ==
LOC: DIORS 14:45
PROVIDERS: PCP Nurse Practitioner Family; Visit Provider Physician Assistant Surgical
DX: S42.201A Unspecified fracture of upper end of right humerus, initial encounter for closed fracture (principal); X58.XXXA Exposure to other specified factors, initial encounter
CPT/HCPCS: 99213; 73030

== ENCOUNTER 2022-04-19 01:41 | Outpatient (CLI) | payer MEDICARE, BC, SELFPAY ==
[2022-04-19 15:03] LABS: Hemoglobin A1C 5.2 % (<5.7)
[2022-04-19 15:06] LABS: Anion Gap 8.2 mmol/L (3-11); BUN 17 mg/dL (7-18); CO2 28.8 mmol/L (21.0-32.0); CREATININE 0.8 mg/dL (0.55-1.02); Calcium 9.8 mg/dL (8.5-10.1); Chloride 103 mmol/L (98-107); Estimated GFR 75.37 (mL/min/1.73m2); FREE T4 1.08 ng/dL (0.76-1.46); Glucose 98 mg/dL (74-106); Potassium 3.7 mmol/L (3.5-5.1); Sodium 140 mmol/L (136-145); TSH 2.39 uIU/mL (0.36-3.74)
[2022-04-19 22:44] LABS: Thyroglobulin Antibody <15 U/mL (<=60); Thyroperoxidase Antibody 45 U/mL (<=60)
== END 2022-04-19 01:42 | disposition home or self-care (01) ==
LOC: LBO 01:41
PROVIDERS: PCP Nurse Practitioner Family; Visit Provider Nurse Practitioner Family
DX: E03.9 Hypothyroidism, unspecified (principal); I10 Essential (primary) hypertension; R73.01 Impaired fasting glucose
CPT/HCPCS: 36415; 80048; 86376; 83036; 84439; 84443

== ENCOUNTER 2022-04-22 01:17 | Outpatient (CLI) | payer MEDICARE, BC, SELFPAY ==
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
--- OUTSIDE RECORDS SUMMARY | 2022-04-22 01:43 | XMS_ITS | Encounter Summary ---
:1945 Author Organization [facility] [place] [address] Care Team Providers Name Role Phone Javi Izaguirre Primary Care Provider Encounter Details Date Type Department Care Team Description 01/25/2019 Hospital Encounter Gastroenterology at [facility] Shmuel Mirza [facility] [place] [address] [facility] [phone] GASTROENTEROLOGY [place], [place] [address] (Wo rk) Social History Tobacco Use Types Packs/Day Years Used Date Former Smoker Quit: 12/12/18 84 Smokeless Tobacco: Never Used Comments: remote hx of smoking. Alcohol Use Standard Drinks/Week Comments Yes 7 (1 standard drink = 0.6 oz pure alcoho l) Sex Assigned at Date Recorded Female 03/31/2021 3:33 PM EDT documented as of this encounter Last Filed Vital Signs Vital Sign Reading Time Taken Comments Blood Pressure 112/66 01/25/2019 11:10 AM EDT Pulse 64 01/25/2019 10:45 AM EDT Temperature 36.5 ??C (97.7 ??F) 01/25/2019 8:58 AM EDT Respiratory Rate 9 01/25/2019 10:45 AM EDT Oxygen Saturation 96% 01/25/2019 11:10 AM EDT Inhaled Oxygen Concentration - - Weight 72.6 kg (160 lb) 01/25/2019 9:04 AM EDT Height 165.1 cm (5' 5) 01/25/2019 9:04 AM EDT Body Mass Index 26.63 01/25/2019 9:04 AM EDT documented in this encounter Medications at Time of Discharge Medication Sig Dispensed Refills Start Date End Date fluticasone (FLONASE) 1 spray daily. 0 50 mcg/actuation [place], Suspension levothyroxine Take 50 mcg by mouth 0 (Synthroid) 50 mcg daily. Tablet multivitamin Take 1 tablet by mouth 0 (THERAGRAN) Tablet daily. lutein 20 mg Tablet Take 20 mg by mouth 0 daily. LORazepam (ATIVAN) 1 Take 0.5 mg by mouth 0 10/28 mg Tablet daily as needed. amLODIPine (NORVASC) 5 Take 5 mg by mouth 0 mg Tablet daily. ibuprofen Take 400 mg by mouth 0 (ADVIL;MOTRIN) 200 mg as needed. Reported on tablet 08/15/2016 acetaminophen Take 2 tablets by 0 12/22/2012 (TYLENOL) 500 mg mouth every 8 hours. tablet Last day for scheduled dosing = December 31. Then may take every 8 hours as needed. Do not take more than 4,000 mg of acetaminophen in 24 hours. omeprazole (PRILOSEC) Take 20 mg by mouth 0 10 mg Capsule, Delayed daily. Release(E.C.) cholecalciferol, Take 1,000 Units by 0 08/27/2020 Vitamin D3, 1,000 unit mouth daily. Capsule RESTASIS 0.05 % Place 1 drop into both 0 07/11/20 15 02/12/2020 Dropperette eyes 2 times daily. mometasone (ELOCON) Apply topically daily 0 07/0602/12/2020 0.1 % Cream as needed. clonazePAM (KLONOPIN) Take 1 mg by mouth 2 0 02/12/2020 1 mg Tablet times daily as needed for Anxiety. Reported on 08/15/2016 amoxicillin (AMOXIL) Take 4 capsules 1 hour 20 capsule 0 06/201402/12/2020 500 mg capsule prior to dental procedures or cleanings. documented as of this encounter H&P Notes Shmuel Mirza MD - 01/25/2019 9:56 AM EDT Patient Name: Sofía Mcdonald Patient Age: 73 y.o. Birthdate: 1945 Admit date: 01/25/2019 Attending Physician: Shmuel Mirza MD Gastroenterology & Hepatology Pre-Procedure History and Physical Planned Procedure: Colonoscopy: Indication: surveillance, polyps 2013 Patient Active Problem List Diagnosis Code ??? Breast cancer C50.919 ??? S/P Left TKA- 12/12/2005 ([facility]) Z96.659 ??? GERD (gastroesophageal reflux disease) K21.9 ??? Anxiety F41.9 ??? Vertigo R42 ??? Right knee pain M25.561 ??? 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 S/P Right TKA revision- poly exchange, synovectomy, lateral facet cheilectomy- 12/21/2012 ([facility])Z96.659 ??? Osteoarthritis of right hip with pain M16.11 ??? Arnold's nerve cough syndrome G52.2 Medications: Reviewed in EDH Allergies Allergen Reactions ??? Metoclopramide Hcl Other (See Comments) Disorientation, flushing, fatigue ??? Prochlorperazine Maleate Other (See Comments) agitation ??? Compazine [Prochlorperazine Edisylate] Other (See Comments) Disorientation, fatigue Social History/Family History: Reviewed in EDH. No changes Exam: Most Recent Vitals: 01/25/19 0858 BP: 152/80 Pulse: 71 Resp: 18 Temp: 36.5 ??C (97.7 ??F) SpO2: 98% GEN: NAD, AAOX3 HEENT: NC/AT dryMM, anicteric Chest: CTAB Heart: RRR, nl s1, s2 Abdomen: normal bowel sounds, soft, non tender Assessment and Plan: Proceed with Colonoscopy: ASA Grade: ASA 2 - Patient with mild systemic disease with no functional limitations Mallampati: I (soft palate, uvula, fauces, tonsillar pillars visible) Sedation plan: IV Conscious Sedation Risks and benefits of the procedure were discussed with the patient. Risks discussed including bleeding, infection, reaction to anesthesia, perforation or other intraabdominal trauma, pancreatitis (if applicable), missing a cancer (if applicable) and/or other unforseen complication. Informed Consent signed by patient (or factory representative). documented in this encounter Plan of Treatment Not on filedocumented as of this encounter Procedures Procedure Name Priority Date/Time Associated Comments Diagnosis SPECIMEN TO PATHOLOGY Routine 01/25/2019 10:44 Re sults for this AM EDT procedure are i n the results section. SPECIMEN TO PATHOLOGY Routine 01/25/2019 10:44 Re sults for this AM EDT procedure are i n the results section. SURGICAL PATHOLOGY Routine 01/25/2019 10:24 Resul ts for this REPORT AM EDT procedure are i n the results section. COLONOSCOPY, 01/25/2019 10:06 5 yr surv. from POLYPECTOMY, REMOVAL AM EDT 12/09/13 LESION BY SNARE (WRVU split dose 4.67) COLONOSCOPY, 01/25/2019 10:06 5 yr surv. from DIAGNOSTIC AM EDT 12/09/13 split dose COLONOSCOPY Routine 01/25/2019 10:02 Results for this AM EDT procedure are i n the results section. documented in this encounter Results Specimen to Pathology (01/25/2019 10:44 AM EDT) Specimen Anatomical Collection Method Collection Time Receive d Time (Source) Location / / Volume Laterality AP Specimen 01/25/2019 10:44 01/25/2019 AM EDT 10:44 AM EDT Narrative [facility] - 01/25/2019 10:44 AM EDT Specimen requisition ordered. ??Separate Pathology report to follow Shmuel Mirza MD PATHOLOGY/CYTOLOGY ORDERABLE S Performing Organization Address City/State/[place] [address] Specimen to Pathology (01/25/2019 10:44 AM EDT) Specimen Anatomical Collection Method Collection Time Receive d Time (Source) Location / / Volume Laterality AP Specimen 01/25/2019 10:44 01/25/2019 AM EDT 10:44 AM EDT Narrative [facility] - 01/25/2019 10:44 AM EDT Specimen requisition ordered. ??Separate Pathology report to follow Shmuel Mirza MD PATHOLOGY/CYTOLOGY ORDERABLE S Performing Organization Address City/State/ZIP Code [place] [address] [facility] [address] Surgical Pathology Report (01/25/2019 10:24 AM EDT) Component Value Ref Test Analysis Performed At [facility] gist Range Method Time Signature Surgical [id number] ? Location: 4T; EA10; A [facility] Pathology [place] Report The signing pathologist has (i) examined the relevant preparation(s) for the [facility] specimen(s) and (ii) rendered or confirmed the diagnosis(es) . HOSPITAL LAB[facility]ORY . ?Surgic al Pathology DIAGNOSIS A - Ascending colon/hepatic flexure, polypectomy: - Tubular adenoma. - Fragments of sessile serrated polyp/adenoma. B - Descending colon, polypectomy: - Tubular adenoma. CR-PX Electronically signed by: ??Babar Kelly MD Verified: ??01/29/2019 ?Pathologist Performed at: ??-[facility] Dept. of Pathology, [place], [place] CLINICAL INFORMATION Specimen Submitted: A - ascending colon polyp/ hepatic flexure B - descending colon polyp Clinical History and Diagnosis: 73-year-old female with personal history of colon polyps SPECIMEN PROCESSING A - Labeled/Fixative: Ascending colon polyps/hepatic flexure , formalin. Quantity/Size: Multiple, ranging from 0.2-0.7 cm. Tissue Description: Soft, pink tissues. Sections/Processing: Entirely submitted in 2 cassettes labeled A1-A2. B - Labeled/Fixative: Descending colon polyp, formalin. Quantity/Size: Single, 0.3 cm. Tissue Description: Soft, pink tissue. Sections/Processing: Submitted en toto ??in 1 cassette labeled B1. ??sns Specimen (Source) Anatomical Collection Method Collection Time Re ceived Time Location / / Volume Laterality 01/25/2019 10:24 AM EDT Shmuel Mirza MD PATHOLOGY/CYTOLOGY ORDERABLE S Performing Organization Address [facility]/[place] [address] COLONOSCOPY (01/25/2019 10:02 AM EDT) [facility] Method Time Signature COLONOSCOPY [facility] Endoscopy Procedure Date: 01/25/2019 10:02 AM ? Patient Name: Sofía Mcdonald ? Date of : 1945 ? Age: 73 ? Order #: [id number] ? Instrument Name: [id number] ? Procedure: ? Colonoscopy Indications: ? High risk colon cancer surveillance : ? Personal history of colonic p olyps Providers: ? Shmuel Mirza MD, Adelaida arenas, ? RN, Vidal Nunez, Director Of Search Engine Marketing Referring MD: ?Javi Izaguirre, DO Medicines: ? Midazolam 3.5 mg IV, Fentanyl ? micrograms IV Complications: ? No immediate complications. Procedure: ? Pre-Anesthesia Assessment: ? - Prior to the procedure, a H istory ? and Physical was performed, a nd ? patient medications and aller gies ? were reviewed. The patient's ? tolerance of previous anesthe cirilo was ? also reviewed. The risks and benefits ? of the procedure and the zahira tion ? options and risks were discus sed with ? the patient. All questions we re ? answered, and informed consen t was ? obtained. Prior Anticoagulant s: The ? patient has taken no previous ? anticoagulant or antiplatelet agents. ? ASA Grade Assessment: II - A patient ? with mild systemic disease. A fter ? reviewing the risks and benef its, the ? patient was deemed in satisfa ctory ? condition to undergo the proc edure. ? The procedure, indications, b enefits, ? risks and alternatives were e xplained ? to the patient. Specifically ? discussed were potential ? complications including, but not ? limited to, bleeding, perfora tion, ? infection, missing a cancer, and ? adverse medication reactions. The ? patient was placed in the lef t ? lateral decubitus position, a nd a ? digital rectal exam was perfo rmed. ? The Colonoscope was inserted in the ? anus and under direct visuali zation, ? advanced to the terminal ileu m, with ? identification of the appendi ceal ? orifice and IC valve. Careful ? inspection was made as the ? colonoscope was withdrawn. Th e ? colonoscopy was performed wit oswaldo ? difficulty. The patient coco ated the ? procedure well. The quality o f the ? bowel preparation was evaluat ed using ? the BBPS ([place] Bowel Prepar ation ? Scale) with scores of: Right Colon = ? 2 (minor amount of residual s taining, ? small fragments of stool and/ or ? opaque liquid, but mucosa see n well), ? Transverse Colon = 3 (entire mucosa ? seen well with no residual st aining, ? small fragments of stool or o paque ? liquid) and Left Colon = 3 (e ntire ? mucosa seen well with no resi dual ? staining, small fragments of stool or ? opaque liquid). The total BBP S score ? equals 8. The terminal ileum, ? ileocecal valve, appendiceal orifice, ? and rectum were photographed. Scope ? withdrawal time was 14 minute s. ? Findings: ? Non-bleeding hemorrhoids were found during ? retroflexion, during perianal exam and during ? endoscopy. ? A 5 mm polyp was found in the descending colon. The ? polyp was sessile. The polyp was removed with a cold ? snare. Resection and retrieval were complete. ? Two sessile polyps were found in the ascending colon ? and proximal ascending colon. The polyps were 3 to 4 ? mm in size. These polyps were removed with a cold ? snare. Resection and retrieval were complete. ? Two sessile polyps were found in the hepatic flexure ? and ascending colon. The polyps were 7 to 9 mm in ? size. These polyps were removed with a cold snare. ? Resection and retrieval were complete. ? The terminal ileum appeared normal. ? No additional abnormalities were found on ? retroflexion. ? Moderate Sedation: ? Moderate (conscious) sedation was administered by the ? endoscopy nurse and supervised by the endoscopist. ? The patient's oxygen saturation, heart rate, blood ? pressure and response to care were monitored. ? I was present during the intraservice time as ? documented by the sedation RN. Impression: ?- Non-bleeding hemorrhoids. ? - One 5 mm polyp in the desce nding ? colon, removed with a cold sn are. ? Resected and retrieved. ? - Two 3 to 4 mm polyps in the ? ascending colon and in the pr oximal ? ascending colon, removed with a cold ? snare. Resected and retrieved . ? - Two 7 to 9 mm polyps at the hepatic ? flexure and in the ascending colon, ? removed with a cold snare. Re sected ? and retrieved. ? - The examined portion of the ileum ? was normal. Recommendation: ?- Use fiber, for example Citrucel, ? Fibercon, Konsyl or Metamucil . ? - Repeat colonoscopy in 3 yea rs for ? surveillance. ? Attending Participation: ? I personally performed the entire procedure. I was ? present during the intraservice time as documented by ? the sedation RN. ? Dr. Ian Mirza Shmuel Mirza MD 01/25/2019 10:48:54 AM Number of Addenda: 0 Note Initiated On: 01/25/2019 10:02 AM Specimen (Source) Anatomical Collection Method Collection Time Re ceived Time Location / / Volume Laterality 01/25/2019 10:02 AM EDT Javi Izaguirre DO GENERAL SURGICAL ORDERABLES Performing Organization Address City/State/ZIP Code Phon e Number [facility] documented in this encounter Visit Diagnoses Not on filedocumented in this encounter Administered Medications Inactive Administered Medications - up to 3 most recent administrations Medication Order MAR Action Action Date Dose Rate Site lactated ringers infusion New Bag 01/25/2019 9:14 AM EDT 100 mL/hr 100 mL/hr 100 mL/hr, Intravenous, CONTINUOUS, Starting on Mon01/25/19 at 0930, Until Mon01/25/19 at 1125, Endoscopy (Day of Procedure) documented in this encounter Active and Recently Administered Medications Times are shown in EDT. Continuous Medication Order 01/23/2019 01/24/2019 01/25/2019 lactated ringers infusion (CANCELED) 0914 (New Bag - Provider: Lenore Bliss RN) 100 mL/hr, at 100 mL/hr, Intravenous, CO NTINUOUS, Starting Mon01/25/19 at 0930, Until Mon01/25/19 at 1125, Endo (Day of Procedure) PRN Medication Order 01/23/2019 01/24/2019 01/25/2019 fentaNYL 50 mcg/mL multi-dose injection (CANCELED) 1009 (Given - Provider: Adelaida Mcintosh RN)1013 (Given - Provider: Adelaida Mcintosh RN)1022 (Given - Provider: Adelaida Mcintosh RN) ONCE PRN, Starting Mon01/25/19 at 1009, Until Mon01/25/19 at 1342, Intra- Operative (Intra-Procedure), Routine midazolam (PF) (VERSED) multi-dose injection (CANCELED) 1009 (Given - Provider: Adelaida Mcintosh RN)1013 (Given - Provider: Adelaida Mcintosh RN)1022 (Given - Provider: Adelaida Mcintosh RN) ONCE PRN, Starting Mon01/25/19 at 1009, Until Mon01/25/19 at 1342, Intra- Operative (Intra-Procedure), Routine documented in this encounter Care Teams Owner Professional Engineer Relationship Specialty Start Date End Date Javi Izaguirre DO PCP - General 06/22/[address] [place] [address] documented as of this encounter
--- OUTSIDE RECORDS SUMMARY | 2022-04-22 01:43 | XMS_ITS | Encounter Summary ---
:1945 Author Organization [facility] [place] [address] Care Team Providers Name Role Phone Javi Izaguirre DO Primary Care Provider Encounter Details Date Type Department Care Team Description 03/10/2020 Telephone Orthopaedics at [facility] Radha Pulido LNA [address] [place] [address] Social History Tobacco Use Types Packs/Day Years Used Date Former Smoker Quit: 12/12/18 84 Smokeless Tobacco: Never Used Comments: remote hx of smoking. Alcohol Use Standard Drinks/Week Comments Yes 7 (1 standard drink = 0.6 oz pure alcoho l) Sex Assigned at Date Recorded Female 03/31/2021 3:33 PM EDT documented as of this encounter Miscellaneous Notes Telephone Encounter - Radha Pulido LNA - 03/10/2020 3:17 PM EDT Sofía last had a telehealth visit with Dr. Lau on 02/19/20 for left hip pain. He recommended she try Meloxicam for 6 weeks then have another visit with him. She reports today that she stopped taking the meloxicam after 2 weeks because she was having diarrhea and stomach pain. She ended up in the ED two days later with rectal bleeding, she had a CT and the doctor told her it was probably a result of the Meloxicam and to discontinue any use of it. She states her hip pain is almost gone and is feelingmuch better. She started taking Tylenol for her pain. She would like to keep her follow up with Dr. Lau on 04/01/20 just in case her pain comes back and will call us if it gets closer and she wants to c ancel. documented in this encounter Plan of Treatment Not on filedocumented as of this encounter Visit Diagnoses Not on filedocumented in this encounter Care Teams Bolt Sorter Relationship Specialty Start Date End Date Javi Izaguirre DO PCP - General 06/22/[address] [place] [address] documented as of this encounter
--- OUTSIDE RECORDS SUMMARY | 2022-04-22 01:43 | XMS_ITS | Encounter Summary ---
:1945 Author Organization [place] [address] Care Team Providers Name Role Phone Javi Izaguirre Primary Care Provider Encounter Details Date Type Department Care Team Description 04/09/2018 Interpretation Only Dorys Ser[facility] Ellis Zhao MD [address] [place] [address] [place], [place] [address] Social History Tobacco Use Types Packs/Day Years Used Date Former Smoker Quit: 12/12/18 84 Smokeless Tobacco: Never Used Comments: remote hx of smoking. Alcohol Use Standard Drinks/Week Comments Yes 7 (1 standard drink = 0.6 oz pure alcoho l) Sex Assigned at Date Recorded Female 03/31/2021 3:33 PM EDT documented as of this encounter Plan of Treatment Not on filedocumented as of this encounter Procedures Procedure Name Priority Date/Time Associated Diagnosis Comme nts XR PELVIS AND HIP 2 Routine 04/09/2018 10:26 AM R esults for this VIEWS RIGHT EDT procedure are i n the results section. documented in this encounter Results XR Pelvis w AP & Lat Hip Right (04/09/2018 10:26 AM EDT) Anatomical Region Laterality Modality Pelvis, Hip Right Radiographic Imaging Specimen (Source) Anatomical Collection Method Collection Time Re ceived Time Location / / Volume Laterality 04/09/2018 10:26 AM EDT Impressions 04/09/2018 11:58 AM EDT Status post total right ??hip arthroplas ty without evidence of complication. Narrative 04/09/2018 11:58 AM EDT EXAMINATION: PELVIS w/HIP FROG (LAT) -RT CLINICAL HISTORY: ZOT - OTHER SPECIFY BE LOW - ASSESS HEALING, S/P RT THR TECHNIQUE: Low AP pelvis and lateral view of the [facility] hip COMPARISON: Pelvis radiographs 12/09/2013. Radiograph s 07/06/2016 are also reviewed. FINDINGS: The patient is status post total right h ip arthroplasty. ??The prosthetic femoral head component is centered in the acetab ular cup. ??No subsidence. No periprosthetic fracture. No periprost hetic lucency to indicate loosening or infection. Unchanged mild left hip joint degenerati ve change. Procedure Note Jeramy Mackenzie MD - 04/09/2018Formattin g of this note might be different from the original. EXAMINATION: PELVIS w/HIP FROG (LAT) -RT CLINICAL HISTORY: ZOT - OTHER SPECIFY BE LOW - ASSESS HEALING, S/P RT THR TECHNIQUE: Low AP pelvis and lateral view of the [facility] hip COMPARISON: Pelvis radiographs 12/09/2013. Radiograph s 07/06/2016 are also reviewed. FINDINGS: The patient is status post total right h ip arthroplasty. The prosthetic femoral head component is centered in the acetab ular cup. No subsidence. No periprosthetic fracture. No periprost hetic lucency to indicate loosening or infection. Unchanged mild left hip joint degenerati ve change. IMPRESSION Status post total right hip arthroplasty without evidence of complication. Ellis Lau MD IMG DX ORDERABLES documented in this encounter Visit Diagnoses Not on filedocumented in this encounter Care Teams Skilled Nursing Facilities Professional Relationship Specialty Start Date End Date Javi Izaguirre DO PCP - General 06/22/[address] [place] [address] documented as of this encounter
--- OUTSIDE RECORDS SUMMARY | 2022-04-22 01:43 | XMS_ITS | Encounter Summary ---
:1945 Author Organization [facility] Address [address] [place] [address] Care Team Providers Name Role Phone Javi Izaguirre DO Primary Care Provider Encounter Details Date Type Department Care Team Description 02/05/2021 Orders Only Orthopaedics at [facility], [facility] post total bilateral knee replacement (Primary Dx); Mirza Vaca MD Right knee pain, unspecified chronicity; [address] Left knee pain, [place] [address] [phone] [place] [address] Social History Tobacco Use Types Packs/Day Years [...] Not on filedocumented as of this encounter Results XR Knee 3 Views Bilat (02/17/2021 1:52 PM EDT) Anatomical Region Laterality Modality Knee Bilateral Digital Radiography Specimen (Source) Anatomical Location Collection Method / Collectio n Time Received Time / Laterality Volume Impressions 02/18/2021 7:53 AM EDT Bilateral knee arthroplasties without complications. Thank you for letting us participate in the care of this patient. ??If you are a health care provider and have any questi ons regarding this report, please contact the number below. ??For patients who have questions please contact the health managed care provider that requested your imaging first. ? Narrative 02/18/2021 7:53 AM EDT EXAMINATION: XR KNEE 3 VIEWS BILAT CLINICAL HISTORY: assess knee pain TECHNIQUE: 3 views BILATERAL knee COMPARISON: April 09, 2019 FINDINGS: Bilateral knee prostheses are demonstrat ed in near anatomic position and alignment. No fracture or evidence of lo osening is seen. Procedure Note Jj Lazo MD - 02/18/2021Formattin g of this note might be different from the original. EXAMINATION: XR KNEE 3 VIEWS BILAT CLINICAL HISTORY: assess knee pain TECHNIQUE: 3 views BILATERAL knee COMPARISON: April 09, 2019 FINDINGS: Bilateral knee prostheses are demonstrat ed in near anatomic position and alignment. No fracture or evidence of lo osening is seen. IMPRESSION Bilateral knee arthroplasties without co mplications. Thank you for letting us participate in the care of this patient. If you are a health care provider and have any questi ons regarding this report, please contact the number below. For patients w ho have questions please contact the health managed care provider that requested your imaging first. Ellis Lau MD IMG DX ORDERABLES documented in this encounter Visit Diagnoses Diagnosis Status post total bilateral knee replace ment - Primary Right knee pain, unspecified chronicity Left knee pain, unspecified chronicity Status post total bilateral knee replace ment Right knee pain, unspecified chronicity Left knee pain, unspecified chronicity documented in this encounter Care Teams Pre Billing Specialist Relationship Specialty Start Date End Date Javi Izaguirre DO PCP - General 06/22/[address] [place] [address] documented as of this encounter
--- OUTSIDE RECORDS SUMMARY | 2022-04-22 01:43 | XMS_ITS | Encounter Summary ---
:1945 Author Organization [facility] [place] [address] Care Team Providers Name Role Phone DmitriyJavi agrawal Primary Care Provider Encounter Details Date Type Department Care Team Description 07/06/2016 Abstract Shannon Vaca Conversion Apd Conversion, Flowsheet Results Provider, [address] [place] [address] Social History Tobacco Use Types Packs/Day [...] Sign Reading Time Taken Comments Blood Pressure - - Pulse - - Temperature - - Respiratory Rate - - Oxygen Saturation - - Inhaled Oxygen - - Concentration Weight 71.4 kg (157 lb 6.5 07/06/2016 3:13 Sourced from APD oz) PM EST Conversion Height 167 cm (5' 5.75) 07/06/2016 3:13 Sourced from A PD PM EST Conversion Body Mass Index 25.6 07/06/2016 3:13 PM EST documented in this encounter Plan of Treatment Not on filedocumented as of this encounter Visit Diagnoses Not on filedocumented in this encounter Care Teams Tobacco Farmworker Relationship Specialty Start Date End Date Javi Izaguirre DO PCP - General 06/22/[address] [place] [address] documented as of this encounter
--- OUTSIDE RECORDS SUMMARY | 2022-04-22 01:43 | XMS_ITS | Encounter Summary ---
:1945 Author Organization [facility] [place] [address] Care Team Providers Name Role Phone DmitriyJavi agrawal Primary Care Provider Encounter Details Date Type Department Care Team Description 04/09/2018 Abstract Shannon Vaca Conversion Apd Conversion, Flowsheet Results Provider, [address] [place] [address] Social History Tobacco Use Types Packs/Day [...] Sign Reading Time Taken Comments Blood Pressure 152/82 04/09/2018 11:30 Sourced from AP D AM EDT Conversion Pulse - - Temperature - - Respiratory Rate - - Oxygen Saturation - - Inhaled Oxygen - - Concentration Weight 73 kg (160 lb 15 oz) 04/09/2018 9:30 Sourced fro m APD AM EDT Conversion Height 167 cm (5' 5.75) 04/09/2018 9:30 Sourced from A PD AM EDT Conversion Body Mass Index 26.18 04/09/2018 9:30 AM EDT documented in this encounter Plan of Treatment Not on filedocumented as of this encounter Visit Diagnoses Not on filedocumented in this encounter Care Teams Senior Applications Developer Relationship Specialty Start Date End Date Javi Izaguirre DO PCP - General 06/22/[address] [place] [address] documented as of this encounter
--- OUTSIDE RECORDS SUMMARY | 2022-04-22 01:43 | XMS_ITS | Encounter Summary ---
:1945 Author Organization [facility] [place] [address] Care Team Providers Name Role Phone Dmitriy Javi BURKS Primary Care Provider Encounter Details Date Type Department Care Team Description 02/17/2021 Ancillary Procedure Radiology XRay at the Ellis Lau, Pain in left hip [facility] [address] [facility] [address] [place] [address] [phone] Social History Tobacco Use Types Packs/Day Years [...] nts XR PELVIS AND HIP 2 Routine 02/17/2021 3:12 PM Pain in left hi p Results for this VIEWS LEFT EDT procedure are i n the results section. documented in this encounter Results XR Pelvis and Hip 2 Views Left (02/17/2021 3:12 PM EDT) Anatomical Region Laterality Modality Pelvis, Hip Left Digital Radiography Specimen (Source) Anatomical Location Collection Method / Collectio n Time Received Time / Laterality Volume Impressions 02/18/2021 8:00 AM EDT Early osteoarthritis in the left hip. Thank you for letting us participate in the care of this patient. ??If you are a health care provider and have any questi ons regarding this report, please contact the number below. ??For patients who have questions please contact the health animal care supervisor that requested your imaging first. ? Narrative 02/18/2021 8:00 AM EDT EXAMINATION: XR PELVIS AND HIP 2 VIEWS LEFT CLINICAL HISTORY: assess hip pain TECHNIQUE: 3 views of the pelvis and left hip COMPARISON: 04/09/2018 FINDINGS: No acute osseous abnormality is seen. Sl ight joint space narrowing with minimal osteophytes is demonstrated.. Noted is a right hip prosthesis. Procedure Note Jj Lazo MD - 02/18/2021Formattin g of this note might be different from the original. EXAMINATION: XR PELVIS AND HIP 2 VIEWS L EFT CLINICAL HISTORY: assess hip pain TECHNIQUE: 3 views of the pelvis and left hip COMPARISON: 04/09/2018 FINDINGS: No acute osseous abnormality is seen. Sl ight joint space narrowing with minimal osteophytes is demonstrated.. Noted is a right hip prosthesis. 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 Thank you for letting us participate in the care of this patient. If you are a health care provider and have any questi ons regarding this report, please contact the number below. For patients w ho have questions please contact the health animal care supervisor that requested your imaging first. Ellis Lau MD IMG DX ORDERABLES documented in this encounter Visit Diagnoses Diagnosis Pain in left hip Pain in joint, pelvic region and thigh documented in this encounter Care Teams Cafe Manager Relationship Specialty Start Date End Date Javi Izaguirre DO PCP - General 06/22/[address] [place] [address] documented as of this encounter
--- OUTSIDE RECORDS SUMMARY | 2022-04-22 01:43 | XMS_ITS | Encounter Summary ---
:1945 Author Organization [facility] [place] [address] Care Team Providers Name Role Phone Dmitriy, Javi BURKS Primary Care Provider Encounter Details Date Type Department Care Team Description 08/20/2018 Office Visit Dermatology at [facility], Mucoid cyst of joint; Sergio PAGE [place]'s disease [address] [facility] [place], [place] [id number] [phone] Social History Tobacco Use Types Packs/Day Years Used Date Former Smoker Quit: 12/12/18 82 Smokeless Tobacco: Never Used Comments: remote hx of smoking. Alcohol Use Standard Drinks/Week Comments Yes 7 (1 standard drink = 0.6 oz pure alcoho l) Sex Assigned at Date Recorded Female 03/31/2021 3:33 PM EDT documented as of this encounter Progress Notes Matt Barnett MD - 08/20/2018 3:15 PM EST Problem: 1. Right third finger mucoid cyst 2. Red bumps on upper torso Sofía follows after last seeing me in 2004. 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 I saw her in 2004 and we injected the mucoid cyst of the left right third middle finger with Kenalog 40 mg/mL after first liquid nitrogen was not successful. Sheis noted that this is recurred again wonders what can be done for it. She is status post 1 hip replacement and 2 knee replacement surgeries for osteoarthritis she states. Physical examination reveals actually 2 mucoid cyst present dorsally along the distal right third finger which clearly transilluminate and are mucoid cysts. She has distal nail grooving associated withthe cysts on this finger. They appear to be contiguous and in fact connect. 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 These are minimally pruritic. Examination of her hands reveals Heberden nodules on a number of her DIP and PIP joints. Assessment plan: Grovers disease, probable, upper shoulders chest and back 1. Patient notices that this comes and goes winter and summer. She has not noted any clear precipitant 2. She is only minimally symptomatic with this, but it does itch a bit. She wonders what could useful to help treat this. 3. Recommend use of good emollient such as CeraVe cream applying on a daily basis as needed at the affected sites. Obtain 1 pound jar [id number]. 4. Patient does not seem to be symptomatic enough to require triamcinolone cream. That is still an alternative. Mucoid cyst right third middle finger 1. Today after obtaining informed consent, the site was first drained using a sterile 30-gauge needle and injected with 20 mg/mL Kenalog injection. 2. Patient tolerated well. Recommend return to clinic in a month for repeat evaluation of this. May cancel if doing well. 3. Discussed the relationship of this with osteoarthritis, which she unfortunately suffers from. CC: Javi Izaguirre DO documented in this encounter Plan of Treatment Not on filedocumented as of this encounter Visit Diagnoses Diagnosis Mucoid cyst of joint Ganglion of joint [place]'s disease Other specified dermatoses documented in this encounter Care Teams Erco Machine Operator Relationship Specialty Start Date End Date Javi Izaguirre DO PCP - General 06/22/10 [facility] [address] [facility] [address] [place] [address] documented as of this encounter
--- OUTSIDE RECORDS SUMMARY | 2022-04-22 01:43 | XMS_ITS | Encounter Summary ---
:1945 Author Organization [facility] [place] [address] Care Team Providers Name Role Phone DmitriyJavi agrawal Primary Care Provider Encounter Details Date Type Department Care Team Description 01/16/2018 Telephone Sleep Center at [facility] Brittaney Chavira [address] [place] [address] Social History Tobacco Use Types Packs/Day Years Used Date Former Smoker Quit: 12/12/18 84 Smokeless Tobacco: Never Used Comments: remote hx of smoking. Alcohol Use Standard Drinks/Week Comments Yes 7 (1 standard drink = 0.6 oz pure alcoho l) Sex Assigned at Date Recorded Female 03/31/2021 3:33 PM EDT documented as of this encounter Miscellaneous Notes Telephone Encounter - Yan Mary MD - 01/17/2018 12:06 PM EDT Patient elected to not pursue in lab titration and is requesting auto CPAP through [facility]. Script sent. documented in this encounter Plan of Treatment Not on filedocumented as of this encounter Visit Diagnoses Diagnosis ROXY (obstructive sleep apnea) Obstructive sleep apnea (adult) (pediatr ic) documented in this encounter Care Teams Helper Marble Finisher Relationship Specialty Start Date End Date Javi Izaguirre DO PCP - General 06/22/[address] [place] [address] [address] [place] [address] documented as of this encounter
--- OUTSIDE RECORDS SUMMARY | 2022-04-22 01:43 | XMS_ITS | Encounter Summary ---
:1945 Author Organization [facility] [place] [address] Care Team Providers Name Role Phone Javi Izaguirre DO Primary Care Provider Encounter Details Date Type Department Care Team Description 12/10/2015 Abstract Hematology/Oncology at [facility] [address] [phone] Social History Tobacco Use Types Packs/Day Years [...] on filedocumented in this encounter Care Teams Auto Service Representative Relationship Specialty Start Date End Date Javi Izaguirre DO PCP - General 06/22/[address] [place] [address] documented as of this encounter
--- OUTSIDE RECORDS SUMMARY | 2022-04-22 01:43 | XMS_ITS | Encounter Summary ---
:1945 Author Organization [facility] Address [address] [place] [address] Care Team Providers Name Role Phone Dmitriy, Javi BURKS Primary Care Provider Reason for Visit Reason Comments Follow-up Bilateral foot pain and pes planus Encounter Details Date Type Department Care Team Description 01/27/2021 Office Visit Surgical Specialties Donavan Dominguez Pes pl anus of both feet; at Day [facility], DPM Primary osteoarthritis of foot, unspecif ied laterality; [address] PTTD (posterior tibial tendo n dysfunction); [place] [address] Neuropathy [phone] [place] [address] Social History Tobacco Use Types Packs/Day Years [...] Sign Reading Time Taken Comments Blood Pressure 140/75 01/27/2021 11:57 AM EDT Pulse 59 01/27/2021 11:57 AM EDT Temperature 36 ??C (96.8 ??F) 01/27/2021 11:57 AM EDT Respiratory Rate - - Oxygen Saturation 93% 01/27/2021 11:57 AM EDT Inhaled Oxygen Concentration - - Weight 74.9 kg (165 lb 2 oz) 01/27/2021 11:57 AM EDT Height 159.4 cm (5' 2.75) 01/27/2021 11:57 AM EDT Body Mass Index 29.48 01/27/2021 11:57 AM EDT documented in this encounter Progress Notes Donavan Dominguez, DPM - 01/27/2021 12:00 PM EDT CHIEF COMPLAINT: Chief Complaint Patient presents with ??? Follow-up Bilateral foot pain and pes planus PRESENT VISIT: Sofía Mcdonald is a 75 y.o. female who has been referred by No ref. provider found for an initial evaluation of bilateral flat feet with pain that has been present for years. Symptoms are described as aching and intermittent in the bilateral plantar, dorsal and medial foot, forefoot and toes. Pain is worse with walking, standing and pressure on the area and in the evening during bedtime. To alleviate the issue she tried NSAIDS, rest and topical creams which did help relieve symptoms. Patient reports,having neuropathy and osteoarthritis. The neuropathy started after breast cancer in 2010. Patient reports having fallen in her bedroom 2 weeks ago and she had a bruise on both feet. Patient shoe size: 9.5 REVIEW OF SYSTEMS: Constitutional: Denies fever, chills, fatigue Cardiovascular: Denies chest pain Respiratory: Denies shortness of breath Gastrointestinal: Denies nausea, vomiting, diarrhea, constipation or abdominal pain Neurovascular: Denies numbness or tingling Musculoskeletal: Denies Ankle Pain, Heel Pain, Knee Pain, Joint Pain, Joint Swelling, Limitation of Motion, Muscular Weakness and Soft Tissue Swelling , Admits Toe Pain and Foot Pain Psychiatric: Mood and affect appropriate Physical Examination Constitutional ?? Appearence: well-developed, well-groomed Head and Face ?? Inspection: head atraumatic, normocephalic Respiratory ?? Respiratory Effort: breathing unlabored Cardiac ?? Heart: ?? Auscultation of Heart: regular rate, normal rhythm, no murmurs present ?? Palpation of Heart: Gait and Station ?? Gait: normal gait ?? Station: normal station Right Lower Extremity ?? Ankle: ?? Inspection/Palpation: no tenderness to palpation, no swelling present, no ecchymosis ?? Range of Motion: PASSIVE DORSIFLEXION: full and painless arc of motion, PASSIVE PLANTARFLEXION: full and painless arc of motion, PASSIVE INVERSION: full and painless arc of motion, PASSIVE EVERSION:full and painless arc of motion ?? Stability: no joint instability on provocative testing ?? Strength: dorsiflexion 5/5, plantar flexion 5/5, inversion 5/5, eversion 5/5, flexor hallucis longus 5/5, extensor hallucis longus 5/5 ?? Foot: ?? Inspection/Palpation: Primary concern is neuropathy that has been well established and explained to patient that I will have no further additional treatment plans that we will improve upon her present symptoms in regards to her neuropathy. Other findings with her feet bilaterally is severe degenerative rigid collapsing arthritis involving Lisfranc joint and midtarsal joint. This creates her pes planus changes with her high pressure points at the plantar medial midfoot. This creates retrograde posterior strain into her posterior tib tendon creating some swelling and tenderness along this course from its insertion line back to the medial malleolus. Midtarsal and Lisfranc joints are somewhat tender with palpation and are rigid due to noted x-ray degenerative changes. She stands in a pronated midfoot collapse with total loss of arch, valgus rear foot, transverse plane deviation of the midfoot andforefoot with inability to heel raise. Ambulation with a shuffling type gait. ? Range of Motion: full and painless range of motion ?? Stability: no joint instability on provocative testing ?? Strength: all muscles 5/5 Left Lower Extremity ?? Ankle: ?? Inspection/Palpation: no tenderness to palpation, no swelling present, no ecchymosis ?? Range of Motion: PASSIVE DORSIFLEXION: full and painless arc of motion, PASSIVE PLANTARFLEXION: full and painless arc of motion, PASSIVE INVERSION: full and painless arc of motion, PASSIVE EVERSION:full and painless arc of motion ?? Stability: no joint instability on provocative testing ?? Strength: dorsiflexion 5/5, plantar flexion 5/5, inversion 5/5, eversion 5/5, flexor hallucis longus 5/5, extensor hallucis longus 5/5 ?? Foot: ?? Inspection/Palpation: no tenderness , no swelling present, no ecchymosis ?? Range of Motion: full and painless range of motion ?? Stability: no joint instability on provocative testing ?? Strength: all muscles 5/5 Neurological ?? Sensation: sensation to light touch intact in extremities Vascular ?? Peripheral Vascular System: ?? Dorsalis Pedis Artery: pulses 2+ bilaterally, appearance WNL ?? Posterior Tibial Artery: pulses 2+ bilaterally, appearance WNL ?? Vascular Exam: dorsalis pedis artery pulse 2+, posterior tibial artery pulse 2+, capillary refillnormal ?? Vascular Exam: dorsalis pedis artery pulse 2+, posterior tibial artery pulse 2+, capillary refillnormal Skin and Subcutaneous Tissue ?? Body Hair: body hair distribution normal for age Impression/Plan: This combination of severe degenerative painful arthritis and neuropathy creates a challenging foot for stability and comfort. Her best course of action regards to her mechanics and foot type will be accommodative type inserts and shock absorbing type shoes. [id number] versus prescription options of both orthotics, bracing, and shoe types are reviewed. Patient explained that her neuropathy is going to be unchanged will at this point, and only neurology would be appropriate for further work-up and/or management. Brief discussion regarding reconstructive surgery for this foot type, which I would not recommend at this age nor with her neuropathy and medical history. CC: Javi Izaguirre DO [address] [place] [address] STOP-BANG Questionnaire BMI: BMI Readings from Last 1 Encounters: 01/27/21 29.48 kg/m?? Age: 75 y.o. Sex: female Patient has been diagnosed with sleep apnea andis using a CPAP machine. High Risk of ROXY: YES 5-8 Intermediate Risk of ROXY: YES 3-4 Low Risk of ROXY: YES 0-2 documented in this encounter Plan of Treatment Not on filedocumented as of this encounter Visit Diagnoses Diagnosis Pes planus of both feet Primary osteoarthritis of foot, unspecif ied laterality PTTD (posterior tibial tendon dysfunctio n) Other disorders of synovium, tendon, and bursa Neuropathy Mononeuritis of unspecified site documented in this encounter Care Teams Family Therapist Relationship Specialty Start Date End Date Javi Izaguirre DO PCP - General 06/22/[address] [place] [address] documented as of this encounter
--- OUTSIDE RECORDS SUMMARY | 2022-04-22 01:43 | XMS_ITS | Encounter Summary ---
:1945 Author Organization [facility] [place] [place] [address] Care Team Providers Name Role Phone Dmitriy, Javi BURKS Primary Care Provider Encounter Details Date Type Department Care Team Description 02/17/2021 Ancillary Procedure Radiology XRay at [facility] S tatus post total bilateral knee replacement; the Multi-Specialty Right knee pain, unspecified chronicity; Clinic at [facility] [address] Left knee pain, unspecified chronicity [address] [place] [address] [phone] Social History Tobacco Use Types Packs/Day Years [...] Priority Date/Time Associated Diagnosis Comme nts XR KNEE AP LAT Routine 02/17/2021 1:52 PM Status post total Re sults for this AXIAL PATELLA BILAT EDT bilateral knee proced ure are in replacement the results Right knee pain, section. unspecified chronicity Left knee pain, unspecified chronicity documented in this encounter Results XR Knee 3 Views [...] who have questions please contact the health manager critical care that requested your imaging first. ? Narrative [...] ho have questions please contact the health manager critical care that requested your imaging first. Ellis Lau MD IMG DX ORDERABLES documented in this encounter Visit Diagnoses Diagnosis Status post total bilateral knee replace ment Right knee pain, unspecified chronicity Left knee pain, unspecified chronicity documented in this encounter Care Teams Adjustment Supervisor Relationship Specialty Start Date End Date Javi Izaguirre DO PCP - General 06/22/[address] [place] [address] documented as of this encounter
--- OUTSIDE RECORDS SUMMARY | 2022-04-22 01:43 | XMS_ITS | Encounter Summary ---
:1945 Author Organization [facility] [address] Care Team Providers Name Role Phone Javi Izaguirre DO Primary Care Provider Reason for Referral Consultation (Routine) - Closed Specialty Diagnoses / Procedures Referred By Contact Refer red To Contact Orthopaedics Diagnoses Ganglion cyst Colin Davis MD [facility] [address] [facility] [address] [facility] [place] [address] [place] [address] Referral ID Status Reason Start Date Expiration Date Visits V isits Requested Authorized [id number] Closed Consult, 02/24/2021 02/24/2022 1 1 Test & Treat Reason for Visit Consultation (Routine) - Closed Specialty Diagnoses / Procedures Referred By Contact Refer red To Contact Dermatology Diagnoses Epidermal cyst Javi Izaguirre DO [facility] [address] [place], [place] [address] [place] [address] Fax: Referral ID Status Reason Start Date Expiration Date Visits V isits Requested Authorized [id number] Closed Consult, Test 01/20/2021 01/20/2022 6 6 & [facility] PCP Updated and/or Approved Encounter Details Date Type Department Care Team Description 02/17/2021 Office Visit Dermatology at Colin Ramos G anglion cyst Road MD (Primary Dx) [address] [place] [address] [facility] [place], [place] [address] Social History Tobacco Use Types Packs/Day Years Used Date Former Smoker Quit: 12/12/18 84 Smokeless Tobacco: Never Used Comments: remote hx of smoking. Alcohol Use Standard Drinks/Week Comments Yes 7 (1 standard drink = 0.6 oz pure alcoho l) Sex Assigned at Date Recorded Female 03/31/2021 3:33 PM EDT documented as of this encounter Progress Notes Colin Davis MD - 02/17/2021 4:20 PM EDT Images from the original note were not included. DEPARTMENT OF DERMATOLOGY Medical Dermatology Clinic Note Provider: Colin Davis MD Patient's preferred name Sofía Preferred contact method for results [x]myDH []Letter []Phone: Detailed phone message OK? Yes Are there any other people with whom we may discuss your care? , Rosanky PAST MEDICAL HISTORY If no, type N. If yes, type date, location, treatment Melanoma N Dysplastic nevi N SCC N BCC N AKs N UV Exposure & Protection N Other relevant past medical history (i.e. 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 If yes, include details below Allergy to lidocaine, epinephrine, Dermabond, chlorhexidine, or adhesives: Bleeding disorder or blood thinners: Implanted devices (Pacemaker, defibrillator, deep brain stimulator, cochlear implant): History of Present Illness: Sofía Mcdonald is a 75 y.o. year old. Patient is referred to the clinic at the request of Javi Izaguirre for a cyst on the right middle finger. - Patient reports of a long standing history of a cyst on the right hand middle finger over the DIP joint. The area is quite bothersome to her and can be painful when bumped. - The cyst has been drained multiple times (by her PCP and also by herself). Upon draining, there boyd clear gel like drainage. - Patient would like to have the lesion fully removed. Review of Systems: General: Feeling well. Skin: No other skin concerns. Medications: Reviewed in eD-H Allergies: Reviewed in eD-H Skin Examination: Focused skin examination of the hands was normal with the exception of the findings below Assessment/Plan Digital Mucous Cyst Exam: right third finger at the base of the nail overlying the DIP there is a ~1cm flesh colored tense fluid filled cyst with surrounding erythema. - Discussed condition with patient in detail as well as treatment options including no treatment, incision and drainage, LN2, intralesional steroids, and excision with dedicated hand surgeon. - After reviewing risks/benefits in detail, patient would like to attempt liquid nitrogen therapy today and plan to evaluate the lesion with hand surgery for definitive removal. - Discussed risks of LN2 including scar, infection, pain, and recurrence Procedure: Destruction of lesion(s) with cryotherapy. Location(s): As noted above Number: 1 Discussed procedure and expectations including risks and benefits. Verbal consent obtained. Treated with LN2. There were no complications. Patient tolerated the procedure well. Post-procedure expectations and wound care were reviewed. Photo was taken and charted with patient's verbal consent. Other items to document in the assessment/plan if relevant ??? N/A RTC: Return to clinic as needed []Note routed to alumni secretary []Recall has been placed in scheduling system []Appointment scheduled at checkout Scribe attestation: BRIAN Jhaveri who has performed the documentation for this encounter in the presence of and acting as a scribe for Colin Davis MD. I performed the above scribed service and agree with the accuracy of the documentation in this encounter. Reviewed and signed by: Colin Davis MD Dermatology [facility] Patient seen and evaluated with staff bus washer: Maira Quevedo MD Department of Dermatology [facility] Maira Quevedo MD - 02/17/2021 4:20 PM EDT I directly supervised the Dermatology resident during this office visit. The resident presented the history and physical exam to me. I then saw and examined this patient with the resident. We reviewed the history and pertinent details and I confirmed the physical findings. I agree with the details of the history and physical exam as documented in the resident's note. MAIRA QUEVEDO MD Staff Physician documented in this encounter Plan of Treatment Scheduled Referrals Name Type Priority Associated Diagnoses Order S chedule Referral to Hand Outpatient Referral Routine Ganglion cyst Ord ered: Clinic 02/24/2021 documented as of this encounter Visit Diagnoses Diagnosis Ganglion cyst - Primary Ganglion, unspecified documented in this encounter Care Teams Pathology Technologist Relationship Specialty Start Date End Date Javi Izaguirre DO PCP - General 06/22/[address] [place] [address] documented as of this encounter
--- OUTSIDE RECORDS SUMMARY | 2022-04-22 01:43 | XMS_ITS | Encounter Summary ---
:1945 Author Organization [facility] [place] [address] Care Team Providers Name Role Phone Dmitriy, Javi BURKS Primary Care Provider Encounter Details Date Type Department Care Team Description 08/26/2015 Interpretation Only Radiology at [facility] Ce nter None [address] [facility] [address] Social History Tobacco Use Types Packs/Day [...] Date/Time Associated Diagnosis Comme nts XR PELVIS Routine 08/26/2015 1:25 PM Results f or this EST procedure are i n the results section . documented in this encounter Results XR Pelvis (Generic) (08/26/2015 1:25 PM EST) Anatomical Region Laterality Modality Pelvis N/A Radiographic Imaging Specimen (Source) Anatomical Collection Method Collection Time Re ceived Time Location / / Volume Laterality 08/26/2015 1:25 PM EST Narrative 08/26/2015 1:25 PM EST APD Historical Result [employer] Salesperson: ??GURWINDER ??CHRIS Can RIGHT HIP: FRONTAL PELVIS - ONE VIEW: INDICATION: ??Total hip replacement. Single frontal view of the pelvis was pe rformed, centered at the hips, excluding the iliac crests as well as the lateral view of th e right hip. Study is compared with the September 18, 2014, exam. The prosthetic femoral head is seated in the prosthetic acetabulum. There are no findings for loosening or infection. ??There is no fr acture or dislocation. ??There is no hardware fracture demonstrated. Visualized sacral struts and SI joint ar e unremarkable. The soft tissue planes are within normal limits. Left hip appears unchanged from the prev ious study of September 18, 2014. ??Cortical thickening associated with the lateral aspect of th e proximal metaphysis of the left hip is unchanged. ?? Visualized soft tissue planes are unremarkable. ??J oint space in left hip is stable on frontal view of the pelvis. IMPRESSION: No findings for loosening or infection. Gurwinder Hubbard MD [facility]/ca [id number] ([facility] 08/27/15) Procedure Note Unknown - 01/28/2019Formatting of this n ote might be different from the original. APD Historical Result [employer] Salesperson: GURWINDER HUBBARD RIGHT HIP: FRONTAL PELVIS - ONE VIEW: INDICATION: Total hip replacement. Single frontal view of the pelvis was pe rformed, centered at the hips, excluding the iliac crests as well as the lateral view of th e right hip. Study is compared with the September 18, 2014, exam. The prosthetic femoral head is seated in the prosthetic acetabulum. There are no findings for loosening or infection. There is no frac ture or dislocation. There is no hardware fracture demonstrated. Visualized sacral struts and SI joint ar e unremarkable. The soft tissue planes are within normal limits. Left hip appears unchanged from the prev ious study of September 18, 2014. Cortical thickening associated with the lateral aspect of th e proximal metaphysis of the left hip is unchanged. Visualized soft tissue planes are unremarkable. Leandra nt space in left hip is stable on frontal view of the pelvis. IMPRESSION: No findings for loosening or infection. Gurwinder Hubbard MD [facility]/mn [id number] ([facility] 08/27/15) Unknown IMG DX ORDERABLES documented in this encounter Visit Diagnoses Not on filedocumented in this encounter Care Teams Piano Tuner Relationship Specialty Start Date End Date Javi Izaguirre DO PCP - General 06/22/[address] [place] [address] documented as of this encounter
--- OUTSIDE RECORDS SUMMARY | 2022-04-22 01:43 | XMS_ITS | Encounter Summary ---
:1945 Author Organization [facility] [place] [address] Care Team Providers Name Role Phone Javi Izaguirre DO Primary Care Provider Encounter Details Date Type Department Care Team Description 08/08/2018 Abstract [address] Conversion Apd Conversion, Flowsheet Results Provider, [address] [place] [address] Social History Tobacco Use Types Packs/Day [...] Sign Reading Time Taken Comments Blood Pressure 122/74 08/08/2018 10:35 AM Sourced from APD EST Conversion Pulse - - Temperature - - Respiratory Rate - - Oxygen Saturation - - Inhaled Oxygen Concentration - - Weight - - Height - - Body Mass Index - - documented in this encounter Plan of Treatment Not on filedocumented as of this encounter Visit Diagnoses Not on filedocumented in this encounter Care Teams Chain Link Fence Installer Relationship Specialty Start Date End Date Javi Izaguirre DO PCP - General 06/22/[address] [place] [address] documented as of this encounter
--- OUTSIDE RECORDS SUMMARY | 2022-04-22 01:43 | XMS_ITS | Encounter Summary ---
:1945 Author Organization [facility] [place] [address] Care Team Providers Name Role Phone Dmitriy, Javi BURKS Primary Care Provider Encounter Details Date Type Department Care Team Description 07/06/2016 Interpretation Only Radiology at [facility] Ce nter None 1 [facility] [place] [address] Social History Tobacco Use Types Packs/Day [...] nts XR PELVIS AND HIP 2 Routine 07/06/2016 2:32 PM Re sults for this VIEWS RIGHT EST procedure are i n the results section. documented in this encounter Results XR Pelvis w AP & Lat Hip Right (07/06/2016 2:32 PM EST) Anatomical Region Laterality Modality Pelvis, Hip Right Radiographic Imaging Specimen (Source) Anatomical Collection Method Collection Time Re ceived Time Location / / Volume Laterality 07/06/2016 2:32 PM EST Narrative 07/06/2016 2:32 PM EST APD Historical Result Principal Microfilm Clerk: ??ALFRED ??LIZETHBKEZIA PELVIS AND RIGHT HIP: INDICATION: ??Status post right total hi p arthroplasty. COMPARISON: ??August 26, 2015. FINDINGS: Low AP orthopelvis and frog-leg lateral view of the right hip show right total hip arthroplasty with non-cemented components that are a ligned on orthogonal views. ??There is no evidence of periprosthetic fracture or loosening. ?? There are mild changes of osteoarthritis in the left hip and symphysis pubis. Alfred HerrDO KE/rr [id number] Procedure Note Unknown - 01/28/2019Formatting of this n ote might be different from the original. APD Historical Result Principal Microfilm Clerk: ALFRED HERR PELVIS AND RIGHT HIP: INDICATION: Status post right total hip arthroplasty. COMPARISON: August 26, 2015. FINDINGS: Low AP orthopelvis and frog-leg lateral view of the right hip show right total hip arthroplasty with non-cemented components that are a ligned on orthogonal views. There is no evidence of periprosthetic fracture or loosening. Th ere are mild changes of osteoarthritis in the left hip and symphysis pubis. Alfred DO Pradeep KE/rr [id number] Unknown IMG DX ORDERABLES documented in this encounter Visit Diagnoses Not on filedocumented in this encounter Care Teams Mold Maker Relationship Specialty Start Date End Date Javi Izaguirre DO PCP - General 06/22/[address] [place] [address] documented as of this encounter
--- OUTSIDE RECORDS SUMMARY | 2022-04-22 01:43 | XMS_ITS | Encounter Summary ---
:1945 Author Organization [facility] [place] [address] Care Team Providers Name Role Phone DmitriyJavi agrawal Primary Care Provider Encounter Details Date Type Department Care Team Description 10/05/2017 Orders Only [facility] at [facility], APPLIED STATISTICIAN [address] [facility] [address] [place] [address] [place] [address] [phone] (Wo rk) Social History Tobacco Use Types Packs/Day Years Used Date Former Smoker Quit: 12/12/18 84 Smokeless Tobacco: Never Used Comments: remote hx of smoking. Alcohol Use Standard Drinks/Week Comments Yes 7 (1 standard drink = 0.6 oz pure alcoho l) Sex Assigned at Date Recorded Female 03/31/2021 3:33 PM EDT documented as of this encounter Progress Notes Stephanie Polk, ADILENE - 10/05/2017 2:16 PM EST Polysomnogram Order Form Room # Technologist Assignment: To be read by on PSG Patient Information: Date of Study: Name: Sofía Mcdonald (71 y.o. female) : 1945 Ht Readings from Last 1 Encounters: 10/05/17 165.1 cm (5' 5) Wt Readings from Last 1 Encounters: 10/05/17 73.9 kg (162 lb 14.7 oz) Normal Sleep Hours: 10p-8a, may wake earlier Arrival Time: Physical/Mobility Limitations: No Cognitive Limitations: No Requires Male Tech: No Requires Female Tech: No Requires 1:1 Care: No Requires Parent/Caregiver: No Home Oxygen Useage: No At Home, Sleeps in a: Bed PSG Indications: Snoring, freq noct awakenings, non-restorative sleep Other Medical Conditions: Chronic nerve cough, GERD, anxiety, PSG Orders Type of Study: Diagnostic, split for AHI > 30 and CMS > 10 Additional Data Required: na Special Instructions: na *Initiate CPAP/BPAP/oxygen per previously determined protocols unless otherwise specified. documented in this encounter Plan of Treatment Not on filedocumented as of this encounter Visit Diagnoses Not on filedocumented in this encounter Care Teams Electrical Prospector Relationship Specialty Start Date End Date Javi Izaguirre DO PCP - General 06/22/[address] [place] [address] documented as of this encounter
--- OUTSIDE RECORDS SUMMARY | 2022-04-22 01:43 | XMS_ITS | Encounter Summary ---
:1945 Author Organization [facility] [place] [address] Care Team Providers Name Role Phone DmitriyJavi agrawal Primary Care Provider Reason for Visit Reason Comments Breast Cancer Encounter Details Date Type Department Care Team Description 08/15/2016 Office Visit Hematology/Oncology Steve Cuevas, Mal ignant neoplasm of at [facility] upper-outer quadrant [address] [place] [id number] [phone] (Wo rk) Social History Tobacco Use Types [...] Sign Reading Time Taken Comments Blood Pressure 134/69 08/15/2016 11:40 AM EST Pulse 61 08/15/2016 11:40 AM EST Temperature 36.6 ??C (97.9 ??F) 08/15/2016 11:40 AM EST Respiratory Rate 18 08/15/2016 11:40 AM EST Oxygen Saturation 99% 08/15/2016 11:40 AM EST Inhaled Oxygen Concentration - - Weight 72.6 kg (160 lb) 08/15/2016 11:40 AM EST Height 165.1 cm (5' 5) 08/15/2016 11:40 AM EST copied Body Mass Index 26.63 08/15/2016 11:40 AM EST documented in this encounter Progress Notes Steve Cuevas MD - 08/15/2016 11:30 AM EST DIAGNOSIS:1) Stage IIA (pT1c pN1 MX), IDC left breast, low-grade, ER/AZ positive, HER-2/ricardo negativebreast cancer. S/P 4 cycles AC and 12 weeks Taxol completed 02/07 now off Femara. 2) slight residual neuropathy lower extremities. 3) long-standing moderately severe arthralgias and myalgias SUBJECTIVE: Sofía comes in today for followup on her breast cancer. It has been over 5 years now since she completed her adjuvant treatment for her node positive stage 2A breast cancer. She has a little bit of residual neuropathy in her feet, but her main problem is the arthritis, and that is about the same. She did give a call to the office wanting to stop the Arimidex, and we went ahead and agreed to that. She notes that since stopping it she has not noticed any difference in her joint pain or arthritis but perhaps does have a little bit more energy. She likes being off the pill. We talked about followup at this point. She has a very slight risk of recurrence of her breast cancer at this point, and in that regard there is really a bigger risk of a new breast cancer than the old one recurring. That being said, followup with her regular PCP would be all that would be indicated, and she tells me that is what she would like to do. We discussed her getting yearly mammograms and a yearly CBC and CMP. Past medical history and social are reviewed above and otherwise unchanged. Patient Active Problem List Diagnosis ??? Arnold's nerve cough syndrome ??? S/P Right TKA revision- poly exchange, synovectomy, lateral facet cheilectomy- 12/21/2012 (Sid) ??? Osteoarthritis of right hip with pain ??? GERD (gastroesophageal reflux disease) ??? Anxiety ??? Vertigo ??? Right knee pain ??? S/P Right total knee arthroplasty ??? S/P Left TKA- 12/12/2005 (Sid) SURGERY DATE: 12/12/2005 RAE GARRISON MD Surgical Procedure Performed: Left total knee arthroplasty, posterior stabilized with computer navigation Components Used: Karsten Legacy Posterior Stabilized Femur size E Tibial baseplate size 4 Tibial polyethylene 10 mm Three peg patella size 32 mm ??? Breast cancer 1) Stage IIA (pT1c pN1 MX), IDC, low-grade, ER/AZ positive, HER-2/ricardo negative L breast cancer. - lumpectomy + XRT - S/P 4 cycles AC and 12 weeks Taxol completed 02/07 - put on Femara 2) residual neuropathy lower extremities 3) long-standing moderately severe arthralgias and myalgias Medications 08/15/16 1204 Medication Sig Taking? omeprazole (PRILOSEC) 10 mg Capsule, Delayed Release(E.C.) Take 10 mg by mouth daily. Yes lutein 20 mg Tablet Take 20 mg by mouth daily. Yes RESTASIS 0.05 % Dropperette Place 1 drop into both eyes 2 times daily. Yes LORazepam (ATIVAN) 1 mg Tablet Take 1 mg by mouth daily as needed. Yes mometasone (ELOCON) 0.1 % Cream Apply topically daily as needed. Yes amLODIPine (NORVASC) 5 mg Tablet Take 5 mg by mouth daily. Yes amoxicillin (AMOXIL) 500 mg capsule Take 4 capsules 1 hour prior to dental procedures or cleanings. Yes acetaminophen (TYLENOL) 500 mg tablet Take 2 tablets by mouth every 8 hours. Last day for scheduled dosing = December 31. Then may take every 8 hours as needed. Do not take more than 4,000 mg of acetaminophen in 24 hours. Yes letrozole (FEMARA) 2.5 mg Tablet Take 1 tablet by mouth daily. Patient not taking: Reported on 08/15/2016 clonazePAM (KLONOPIN) 1 mg Tablet Take 1 mg by mouth 2 times daily as needed for Anxiety. Reported on 08/15/2016 UNABLE TO FIND Reported on 08/15/2016 ibuprofen (ADVIL;MOTRIN) 200 mg tablet Take 400 mg by mouth as needed. Reported on 08/15/2016 Past medical history and social history are reviewed and unchanged otherwise. Review of Systems Constitutional: Negative for fever, chills, activity change, fatigue and unexpected weight change. HENT: Negative for sore throat, mouth sores and trouble swallowing. Eyes: Negative. Respiratory: Negative for cough, shortness of breath and wheezing. Cardiovascular: Negative . Gastrointestinal: Negative for nausea, vomiting, abdominal pain, diarrhea, constipation and abdominal distention. Genitourinary: Negative. Musculoskeletal: Minimal knee pain. R hip/thigh pain subsequent to hip replacement ongoing but not disabling. Skin: Clear. 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 Hematological: Negative for adenopathy. General: AAAx3, in NAD Head: Normocephalic, without obvious abnormality, atraumatic Eyes: PERRL, conjunctiva/corneas clear, EOM's intact Nose: Nares normal, septum midline Throat: Lips, mucosa, and tongue normal; teeth and gums normal Neck: Supple, symmetrical, trachea midline, no adenopathy Back: Symmetric, no curvature, ROM normal. Lungs: Clear to auscultation bilaterally, respirations unlabored Heart: Regular rate and rhythm, S1, S2 normal, no murmur, rub or gallop Abdomen: Soft, non-tender, no masses, no organomegaly Extremities: Extremities normal, atraumatic, no cyanosis or edema Skin: Skin color, texture, turgor normal, no rashes or lesions Lymph nodes: Cervical, supraclavicular, and axillary nodes normal Neurologic: Normal; nl patellar reflexes; vehicle body sander grossly intact Vitals BP 134/69 (Patient Position: Sitting) Pulse 61 Temp 36.6 ??C (97.9 ??F) (Oral) Resp 18 Ht 165.1 cm (5' 5) Comment: copied Wt 72.6 kg (160 lb) SpO2 99% BMI 26.63 kg/m2 Weight Wt Readings from Last 3 Encounters: 08/15/16 72.6 kg (160 lb) 12/10/15 71.2 kg (157 lb) 06/01/15 69.2 kg (152 lb 8 oz) BILATERAL MAMMOGRAPHY 07/06/16?? REASON FOR EXAM: 70-year-old female, history of left breast cancer and lumpectomy, 2010. ?? TECHNIQUE: CC and MLO views were obtained of each breast using standard 2-D mammography as well as 3-D tomosynthesis. Computer aided detection was used. ?? Comparison: This is compared with prior images. ?? FINDINGS: There are scattered areas of fibroglandular density. There are no suspicious microcalcifications, masses, or areas of distortion. The pattern is stable. Stable left postsurgical change. ?? CONCLUSION: No mammographic evidence of malignancy. ?? RECOMMENDATION: Routine screening. ?? Review of her lab today shows normal electrolytes. Creatinine 0.69. Liver tests are normal with an ALP of 97 and a calcium of 8.5. CBC shows white count of 6.61, hemoglobin 14, hematocrit 42%, platelet count 327,000. Absolute neutrophil count is 4.81. ASSESSMENT/PLAN: Sofía is doing well and has no evidence of recurrent breast cancer, now over 5 years from her adjuvant treatment. In this regard, she has a very low risk of recurrence and prefers to follow up with routine yearly mammograms and physical exams with lab with her PCP. I told her that was fine, but we are available of course if there are any issues, questions, or problems that arise. We will see her back on a p.r.n. basis. documented in this encounter Plan of Treatment Not on filedocumented as of this encounter Procedures Procedure Name Priority Date/Time Associated Diagnosis Comme nts LAB SCAN 08/15/2016 12:00 AM Results for this EST procedure are i n the results section . documented in this encounter Results SCAN DOC: LAB (08/15/2016 12:00 AM EST) Narrative This result has an attachment that is no t available. Scanning Provider MEDIA MGR SCAN EXT ORDR/RSLT documented in this encounter Visit Diagnoses Diagnosis Malignant neoplasm of upper-outer quadra nt of left female breast Malignant neoplasm of upper-outer quadra nt of female breast documented in this encounter Care Teams Hot Mill Operator Relationship Specialty Start Date End Date Javi Izaguirre DO PCP - General 06/22/[address] [place] [address] documented as of this encounter
--- OUTSIDE RECORDS SUMMARY | 2022-04-22 01:43 | XMS_ITS | Encounter Summary ---
:1945 Author Organization [facility] Address [address] [address] Care Team Providers Name Role Phone Dmitriy Javi BURKS Primary Care Provider Encounter Details Date Type Department Care Team Description 01/20/2021 Orders Only Surgical Specialties at [facility], Foot pain, bilateral [address] [place] [address] [phone] [place], [place] [address] Social History Tobacco Use Types [...] filedocumented as of this encounter Results XR Foot Min 3 views Bilat (Generic) (01/27/2021 11:28 AM EDT) Anatomical Region Laterality Modality Foot Bilateral Digital Radiography Specimen (Source) Anatomical Location Collection Method / Collectio n Time Received Time / Laterality Volume Impressions 01/27/2021 2:10 PM EDT 1. ??Advanced bilateral tarsometatarsal joints osteoarthropathy more severe on the left. 2. ??Bilateral pes planus and lesser toe deformities. 3. ??Decreased bone mineralization. Thank you for letting us participate in the care of this patient. ??If you are a health care provider and have any questi ons regarding this report, please contact the number below. ??For patients who have questions please contact the health career discovery teacher that requested your imaging first. ? Narrative 01/27/2021 2:10 PM EDT EXAMINATION: XR FOOT MIN 3 VIEWS BILAT (GENERIC) CLINICAL HISTORY: Bilateral foot pain, w eight bearing please, entered by ordering service TECHNIQUE: 3 views each foot, weightbear ing COMPARISON: None FINDINGS: BONES: * ??Decreased bone mineralization. * ??Pronounced bilateral pes planus * ??2 -4 hammertoe deformities SOFT TISSUES: No calcifications JOINTS: * ??IP joints-small marginal osteophytes and no erosions * ??MTP joints- narrowed bilateral first MTP joint spaces with small marginal osteophytes. * ??TMT- advanced osteoarthropathy with severe loss of joint space, subchondral sclerosis, osteophyte formation [large o n the left] and numerous subchondral cysts [more numerous on the left]. * ??Naviculo-cuneiform joints- narrowed joint space with small osteophyte formation. * ??Talonavicular joint- symmetric * ??Calcaneo-cuboid joint- preserved sherlyn nt spaces * ??Ankle joints- no effusion the right tibiotalar joint is not included in entirety. Procedure Note Breanne Chavez MD - 01/27/2021Formatt ing of this note might be different from the original. EXAMINATION: XR FOOT MIN 3 VIEWS BILAT ( GENERIC) CLINICAL HISTORY: Bilateral foot pain, w eight bearing please, entered by ordering service TECHNIQUE: 3 views each foot, weightbear ing COMPARISON: None FINDINGS: BONES: * Decreased bone mineralization. * Pronounced bilateral pes planus * 2 -4 hammertoe deformities SOFT TISSUES: No calcifications JOINTS: * IP joints-small marginal osteophytes a nd no erosions * MTP joints- narrowed bilateral first M TP joint spaces with small marginal osteophytes. * TMT- advanced osteoarthropathy with se grisel loss of joint space, subchondral sclerosis, osteophyte formation [large o n the left] and numerous subchondral cysts [more numerous on the left]. * Naviculo-cuneiform joints- narrowed desirae int space with small osteophyte formation. * Talonavicular joint- symmetric * Calcaneo-cuboid joint- preserved joint spaces * Ankle joints- no effusion the right ti biotalar joint is not included in entirety. IMPRESSION 1. Advanced bilateral tarsometatarsal desirae ints osteoarthropathy more severe on the left. 2. Bilateral pes planus and lesser toe d eformities. 3. Decreased bone mineralization. Thank you for letting us participate in the care of this patient. If you are a health care provider and have any questi ons regarding this report, please contact the number below. For patients w ho have questions please contact the health career discovery teacher that requested your imaging first. [facility] Dominguez DPIra IMG DX ORDERABLES documented in this encounter Visit Diagnoses Diagnosis Foot pain, bilateral Pain in limb Foot pain, bilateral Pain in limb documented in this encounter Care Teams Pinmaker Relationship Specialty Start Date End Date Javi Izaguirre DO PCP - General 06/22/[address] [place] [address] documented as of this encounter
--- OUTSIDE RECORDS SUMMARY | 2022-04-22 01:43 | XMS_ITS | Encounter Summary ---
:1945 Author Organization [facility] Address [address] [place] [address] Care Team Providers Name Role Phone DmitriyJavi DO Primary Care Provider Reason for Referral Physical Therapy (Routine) - Closed Specialty Diagnoses / Procedures Referred By Contact Refer red To Contact Diagnoses Chronic midline low back pain without sciatica Status post total bilateral knee replacement Ellis Lau MD Unknown [address] [place] [address] Referral ID Status Reason Start Date Expiration Date Visits V isits Requested Authorized [id number] Closed Evaluate and 02/17/2021 08/16/2021 12 12 Treat Reason for Visit Reason Comments Follow-up bilat knee. s/p TKR Encounter Details Date Type Department Care Team Description 02/17/2021 Office Visit Orthopaedics at Ellis Cobb, Stat post total bilateral knee replacement (Primary Dx); Mirza Vaca MD Chronic midline low back pain without sc iatica [address] [place] [address] [phone] [place] [address] Social History Tobacco Use Types Packs/Day Years [...] - Inhaled Oxygen Concentration - - Weight 71.7 kg (158 lb) 02/17/2021 2:31 PM EDT Height 159.4 cm (5' 2.75) 02/17/2021 2:31 PM EDT Body Mass Index 28.21 02/17/2021 2:31 PM EDT documented in this encounter Progress Notes Ellis Lau MD - 02/17/2021 2:30 PM EDT CHIEF COMPLAINT: Chief Complaint Patient presents with ??? Follow-up bilat knee. s/p TKR Workers Compensation. no. PCP: Javi Izaguirre DO Sofía presents to clinic for orthopedic consultation at the request of No ref. provider found HPI: Sofía Mcdonald is a 75 y.o. year old female being seen today to discuss pain of the anterior and lateral aspect of the bilateral knee(S). She reports the pain ismild and moderate and is dull and achy innature and occurs frequent She states the knee issue began a while ago. The patient reports the knee complaint occurred gradually with no history of injury. she is full weight bearing with the use of a cane. She reports climbing or going down stairs, getting up from a chair and walking on uneven ground aggravate her knee complaint. She also reports decreased walking tolerance and stiffness in association to her knee complaint. The patient has tried the following treatments: Supportive: Brace/Wrap: no Ice/Heat: no Rest/Elevation:no Medications: NSAIDS ibuprofen (Motrin) and Tylenol with slight improvement . Physical Therapy : no Joint Injections: no Surgery: yes S/P LT TKR 12/12/[address] [facility] [place] S/P RT TKR 1997 S/P RT TKR Revision 12/21/[address] [facility]: bilateral knee X-ray series were performed on 02/17/21 at [facility] The imaging was available and reviewed in clinic with the patient. The findings are documented in the physical exam below. Review of Systems: Constitutional: Denies fever, chills, fatigue Cardiovascular: Denies chest pain Respiratory: Denies shortness of breath Gastrointestinal: Denies nausea, vomiting, diarrhea, constipation or abdominal pain Neurovascular: Denies numbness or tingling Musculoskeletal: Admits bilateral knee pain. Left hip pain Psychiatric: Mood and affect appropriate PHYSICAL EXAM: Ht 159.4 cm (5' 2.75) Wt 71.7 kg (158 lb) BMI 28.21 kg/m?? Constitutional : well-developed, well-nourished, well-groomed, body habitus normal Head/Face : Atraumatic, normocephalic General: alert and oriented. She appears in no acute discomfort and is resting comfortably in a chair in the exam room. Gait/Station: Broadly based gait, Station normal .L4-5 tenderness Right lower extremity : Hip: full and painless ROM , no tenderness to palpation Thigh: no tenderness, no ecchymosis, no swelling Knee : grade 2 MCL laxity Inspection/Palpation: No tenderness, no ecchymosis, no effusion, no warmth ROM: 0 degrees of extension to 110 degrees of flexion Stability:no valgus or varus instability present , anterior drawer negative, posterior drawer negative Strength: no weakness present muscle strength 5/5 Tests and signs : Lower leg: No tenderness to palpation, no swelling, no ecchymosis Muscle tone: tone normal Left lower extremity : Hip: ROM with buttock pain, no tenderness to palpation Thigh: no tenderness, no ecchymosis, no swelling Knee : Inspection/Palpation: No tenderness, no ecchymosis, no effusion, no warmth ROM: 0 degrees of extension to 126 degrees of flexion Stability: no valgus or varus instability present , anterior drawer negative, posterior drawer negative Strength: no weakness present muscle strength 5/5 Tests and signs : Lower leg: No tenderness to palpation, no swelling, no ecchymosis Muscle tone: tone normal Leg length discrepancy: No Skin: no erythema present, no ecchymosis present, no signs of skin lesions or infection Sensation: : sensation to light touch intact in lower extremities, neurovascularly intact Mental status Examination: grossly oriented to person, place and time Mood and Affect: mood normal, affect appropriate Assessment/Plan: Bilateral knee replacement follow-up for this 75-year-old female, who the right knee was done in the and I did a polyethylene exchange while at [facility]. The left knee was replaced primarily in 2005 using a Karsten implant. She tells me that recently her sustained a lumbar injury and she has been doing a lot more physical work at home, helping him trying to recover. Corresponding to this she has had an increase in her left hip and both knees. No fevers or chills, no other systemic symptoms. Radiographs really show good implant position. She tells me she also has a lot of foot pain from bilateral pes planus, recently saw Dr. Dominguez our developmental psychologist and was told that there was really nothingto do surgically. She tells me that she feels like the pain in the knees is likely muscular, think she would benefit from improved balance and improved strength. I gave her a prescription for physical therapy, I agree that she would benefit from some sustained focus on strengthening her core and knee musculature, we will get x-rays of the pelvis and left hip tomake sure there is been no progression in left hip OA. At this point I see no problems with her implants, either at the left or the right knee. Addendum: The pelvis and hip radiographs were reviewed and show excellent implant position with no concerning features, no osteolysis, subsidence, fracture, or evidence of implant loosening. I Daysi Villatoro am acting as scribe for Ellis Lau MD. All work documented was performed by Ellis Lau MD. IEllis MD personally performed the services described in this documentation, as scribed by Daysi Villatoro is both accurate and complete. documented in this encounter Plan of Treatment Scheduled Referrals Name Type Priority Associated Diagnoses Order S chedule Referral to Outpatient Referral Routine Chronic midline low O rdered: Physical Therapy back pain without 2020 sciatica Status post total bilateral knee replacement documented as of this encounter Visit Diagnoses Diagnosis Status post total bilateral knee replace ment - Primary Chronic midline low back pain without sc iatica documented in this encounter Care Teams Rehabilitation Consultant Relationship Specialty Start Date End Date Javi Izaguirre DO PCP - General 06/22/[address] [place] [address] documented as of this encounter
--- OUTSIDE RECORDS SUMMARY | 2022-04-22 01:43 | XMS_ITS | Encounter Summary ---
:1945 Author Organization [facility] [place] [address] Care Team Providers Name Role Phone Javi Izaguirre DO Primary Care Provider Encounter Details Date Type Department Care Team Description 02/12/2020 Abstract Orthopaedics at [facility] [place] Daysi Villatoro, SPORT SHOE SPIKE ASSEMBLER [address] [place] [address] Social History Tobacco Use Types Packs/Day [...] on filedocumented in this encounter Care Teams County Commissioner Relationship Specialty Start Date End Date Javi Izaguirre DO PCP - General 06/22/[address] [place] [address] documented as of this encounter
--- OUTSIDE RECORDS SUMMARY | 2022-04-22 01:43 | XMS_ITS | Encounter Summary ---
:1945 Author Organization [facility] [place] [address] Care Team Providers Name Role Phone Dmitriy, Javi BURKS Primary Care Provider Reason for Referral Consultation (Routine) - Canceled Specialty Diagnoses / Procedures Referred By Contact Refer red To Contact Sleep Center Diagnoses ROXY (obstructive sleep apnea) Yan Mary MD [facility] Sleep Medicine [facility] [address] [address] [place] [address] Referral ID Status Reason Start Date Expiration Date Visits V isits Requested Authorized [id number] Canceled Test Only 01/15/2018 01/15/2019 1 1 Encounter Details Date Type Department Care Team Description 01/15/2018 Telephone Sleep Center at [facility] Brittaney Chavira Mckayla [address] [place] [address] Social History Tobacco Use Types Packs/Day Years Used Date Former Smoker Quit: 12/12/18 84 Smokeless Tobacco: Never Used Comments: remote hx of smoking. Alcohol Use Standard Drinks/Week Comments Yes 7 (1 standard drink = 0.6 oz pure alcoho l) Sex Assigned at Date Recorded Female 03/31/2021 3:33 PM EDT documented as of this encounter Plan of Treatment Scheduled Referrals Name Type Priority Associated Diagnoses Order S chedule Referral to Sleep Outpatient Referral Routine ROXY (obstructive Ordered: Disorders Center sleep apnea) 01/15/2018 documented as of this encounter Visit Diagnoses Diagnosis ROXY (obstructive sleep apnea) Obstructive sleep apnea (adult) (pediatr ic) documented in this encounter Care Teams Manager Trading Relationship Specialty Start Date End Date Javi Izaguirre DO PCP - General 06/22/[address] [place] [address] documented as of this encounter
--- OUTSIDE RECORDS SUMMARY | 2022-04-22 01:43 | XMS_ITS | Encounter Summary ---
:1945 Author Organization [facility] [place] [address] Care Team Providers Name Role Phone Javi Izaguirre DO Primary Care Provider Encounter Details Date Type Department Care Team Description 01/26/2022 Hospital En[place] [facility] [place] [facility]za [facility] [place] [address] [facility] [phone] GASTROENTEROLOGY [place], [place] [address] (Wo rk) Social History Tobacco [...] on filedocumented in this encounter Care Teams Mri Ct Tech Relationship Specialty Start Date End Date Javi Izaguirre DO PCP - General 06/22/[address] [place], [place] [id number] documented as of this encounter
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
--- OUTSIDE RECORDS SUMMARY | 2022-04-22 01:43 | XMS_ITS | Encounter Summary ---
:1945 Author Organization [facility] [place] [address] Care Team Providers Name Role Phone Javi Izaguirre DO Primary Care Provider Encounter Details Date Type Department Care Team Description 10/07/2019 Hospital Encounter Mammography/DXA at [facility], Visit for screening [facility] DO mammogram [address] [address] [phone] Social History Tobacco Use Types Packs/Day Years Used Date Former Smoker Quit: 12/12/18 84 Smokeless Tobacco: Never Used Comments: remote hx of smoking. Alcohol Use Standard Drinks/Week Comments Yes 7 (1 standard drink = 0.6 oz pure alcoho l) Sex Assigned at Date Recorded Female 03/31/2021 3:33 PM EDT documented as of this encounter Medications at Time of Discharge Medication Sig Dispensed Refills Start Date End Date fluticasone (FLONASE) 1 spray daily. 0 50 mcg/actuation [place], Suspension levothyroxine Take 50 mcg by mouth [...] or cleanings. documented as of this encounter Plan of Treatment Not on filedocumented as of this encounter Procedures Procedure Name Priority Date/Time Associated Diagnosis Comme nts MAMMO SCREENING CAD Routine 10/07/2019 11:16 AM Visit for scre ening Results for this AND DARION BILATERAL EDT mammogram procedure are in the results section. documented in this encounter Results Mammo Screening Cad and Darion Bilateral (10/07/2019 11:16 AM EDT) Anatomical Region Laterality Modality Breast Bilateral Mammography Specimen (Source) Anatomical Location Collection Method / Collectio n Time Received Time / Laterality Volume Narrative 10/07/2019 11:35 AM EDT BILATERAL MAMMOGRAPHY REASON FOR EXAM: 73-year-old female, his tory of left breast cancer, lumpectomy, radiation and chemotherapy, 2010. TECHNIQUE: CC and MLO views were obtaine d of each breast using standard 2-D mammography as well as 3-D tomosynthesis . Computer aided detection was used. Comparison: This is compared with prior images. FINDINGS: There are scattered areas of f ibroglandular density. There are no suspicious microcalcifications, masses, or areas of distortion. The pattern is stable. Stable postsurgical change. CONCLUSION: No mammographic evidence of malignancy. RECOMMENDATION: Routine screening. A result letter has been sent to this pa [facility]. BIRADS CATEGORY 2: Benign findings. * ??The [employer] an d The Society of Breast Imaging recommend annual screening beginning at age 40 for the general female population. * ??Screening should continue as long as a woman is in good health and is expected to live 10 more years or longer . * ??All women should be familiar with [facility] known benefits, limitations, and potential harms linked to breast cancer screening. They also should know how their breasts normally look and feel and report any breast changes to a health care provider right away. * ??Some women, because of their family history, a genetic tendency, or certain other factors, should be screened with M RIs along with mammograms. (The number of women who fall into this category is very small.) The patient and health care provider should discuss the patient hist ory and decide if earlier screening and breast MRI are appropriate. Thank you for letting us participate in the care of this patient. For questions regarding this report, please contact [facility] number below. ? Javi TODD MAMMO ORDERABLES documented in this encounter Visit Diagnoses Diagnosis Visit for screening mammogram Other screening mammogram documented in this encounter Care Teams Systems Architecture Analyst Relationship Specialty Start Date End Date Javi Izaguirre DO PCP - General 06/22/[address] [place] [address] documented as of this encounter
--- OUTSIDE RECORDS SUMMARY | 2022-04-22 01:43 | XMS_ITS | Encounter Summary ---
:1945 Author Organization [facility] [place] [address] Care Team Providers Name Role Phone DmitriyJavi agrawal Primary Care Provider Encounter Details Date Type Department Care Team Description 08/26/2015 Interpretation Only Radiology at [facility] Ce nter None [address] [place] [address] Social History Tobacco Use Types Packs/Day [...] Priority Date/Time Associated Diagnosis Comme nts XR HIP 1 VIEW RIGHT Routine 08/26/2015 1:25 PM Re sults for this EST procedure are i n the results section. documented in this encounter Results XR Hip 1 view Right (08/26/2015 1:25 PM EST) Anatomical Region Laterality Modality Hip Right Radiographic Imaging Specimen (Source) Anatomical Collection Method Collection Time Re ceived Time Location / / Volume Laterality 08/26/2015 1:25 PM EST Narrative 08/26/2015 1:25 PM EST APD Historical Result Principal Business Mgr: ??GURWINDER ??CHRIS Can RIGHT HIP: FRONTAL PELVIS [...] for loosening or infection. Gurwinder Hubbard MD [facility]/ri [id number] ([facility] 08/27/15) Procedure Note Unknown - 01/28/2019Formatting of this n ote might be different from the original. APD Historical Result Principal Business Mgr: GURWINDER HUBBARD RIGHT HIP: FRONTAL PELVIS - [...] for loosening or infection. Gurwinder Hubbard MD [facility]/mn [id number] ([facility] 08/27/15) Unknown IMG DX ORDERABLES documented in this encounter Visit Diagnoses Not on filedocumented in this encounter Care Teams Dry Cleaning Attendant Relationship Specialty Start Date End Date Javi Izaguirre DO PCP - General 06/22/[address] [place] [address] documented as of this encounter
--- OUTSIDE RECORDS SUMMARY | 2022-04-22 01:43 | XMS_ITS | Encounter Summary ---
:1945 Author Organization [facility] [place] [address] Care Team Providers Name Role Phone Javi Izaguirre DO Primary Care Provider Reason for Visit Reason Comments Establish Care Right Middle Finger Ganglion Cyst Consultation (Routine) - Closed Specialty Diagnoses / Procedures Referred By Contact Refer red To Contact Orthopaedics Diagnoses Ganglion cyst Colin Davis MD [facility] [address] [place] [address] D [facility] [place] [address] [place] [address] Referral ID Status Reason Start Date Expiration Date Visits V isits Requested Authorized [id number] Closed Consult, 02/24/2021 02/24/2022 1 1 Test & Treat Encounter Details Date Type Department Care Team Description 04/06/2021 Office Visit Orthopaedics at [facility] Rand Santos Mucous cyst of digit [facility] QUITA [place] [address] CENTER [phone] ORTHOPAEDIC SURGERY [place], [place] [address] Social History Tobacco Use Types [...] Sign Reading Time Taken Comments Blood Pressure 137/67 04/06/2021 1:16 PM EDT Pulse 60 04/06/2021 1:16 PM EDT Temperature - - Respiratory Rate - - Oxygen Saturation - - Inhaled Oxygen Concentration - - Weight 71.7 kg (158 lb 1.1 oz) 04/06/2021 1:16 PM EDT Height 159.4 cm (5' 2.76) 04/06/2021 1:16 PM EDT Body Mass Index 28.22 04/06/2021 1:16 PM EDT documented in this encounter Progress Notes Rand Santos PA - 04/06/2021 1:20 PM EDT PATIENT NAME: Sofía Mcdonald AGE: 75 y.o. MR#: [id number] DATE OF VISIT: 04/06/2021 DATE OF INJURY/ONSET: Chronic STAFF: Dr. Silveira CHIEF COMPLAINT: Right long finger mass HISTORY OF PRESENT ILLNESS: Ms. Mcdonald is a right hand dominant 75 y.o. female who comes into clinic today for evaluation of the right long finger. She states she developed a mass over the dorsal aspectof her right long finger DIP joint years ago. At one point this was drained with a needle and clear fluid was able to be expressed from the mass. She states that the mass has drained on several occasions. More recently she has been seen in dermatology and in January this was treated with cryotherapy. Shestates she is starting to develop more pain in the DIP joint. She also has tried managing her symptoms with hot compresses. She was told that the mass could be surgically excised and she is here to discuss surgery in more detail. Medications and Allergies were reviewed in eD-H PAST MEDICAL HX: Past Medical History: Diagnosis Date ??? Anxiety ??? Breast cancer ??? Colon polyps ??? Depression ??? Diverticulosis ??? Fibromyalgia ??? GERD (gastroesophageal reflux disease) ??? H/O multiple sclerosis around 55yo ??? Hypertension ??? Peptic ulcer disease ??? Right knee pain 06/04/2012 ??? Rosacea ??? Tubular adenoma of colon 02/24/2019 PAST SURGICAL HX: Past Surgical History: Procedure Laterality Date ??? [...] removal , R TKR , L TKR '. ??? PRO COLONOSCOPY, DIAGNOSTIC N/A 01/25/2019 COLONOSCOPY, DIAGNOSTIC performed by Shmuel Mirza MD at [facility] ??? PRO COLONOSCOPY, REMV LESN, SNARE 12/12/2013 COLONOSCOPY, POLYPECTOMY, REMOVAL LESION BY SNARE performed by Fernanda Freitas MD at [facility] ??? PRO COLONOSCOPY, REMV LESN, SNARE N/A 01/25/2019 COLONOSCOPY, POLYPECTOMY, REMOVAL LESION BY SNARE (WRVU 4.67) performed by Shmuel Mirza MDat [facility] ??? PRO REVISE KNEE JOINT REPLACE, ALL PARTS 12/21/2012 @TOTAL KNEE REVISION ARTHROPLASTY, COMPLETE performed by Ellis Lau MD at [facility] ??? TUBAL LIGATION ??? WRIST FRACTURE SURGERY 07/09 R FAMILY HX: Family History Problem Relation Age of Onset ??? Hypertension Mother ??? Diabetes Mother ??? Lung Cancer Mother ??? Hypertension Father ??? Cerebrovascular Accident Father ??? Lung Cancer Father ??? Hypertension Sister ??? Hypertension Brother ??? Diabetes Brother ??? Liver Cancer Brother ??? Breast Cancer Neg Hx SOCIAL HX: Social History Occupational History ??? 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 Smoking status: Former Smoker Quit date: 12/13/1983 Years since quittin.3 ??? Smokeless tobacco: Never Used ??? Tobacco comment: remote hx of smoking. Vaping Use ??? Vaping Use: Never used Substance and Sexual Activity ??? Alcohol use: Yes Alcohol/week: 7.0 standard drinks Types: 7 Glasses of wine per week ??? Drug use: Not Currently ??? Sexual activity: Not on file ROS: Pertinent items are noted in HPI. General Health, Prior Treatments, PreExisting Condition, Health Habits, About You 03/29/2021 PROMIS-10 General Health Good PROMIS-10 Quality of Life Good PROMIS-10 Physical Health Fair PROMIS-10 Mental Health Very Good PROMIS-10 Social Activity Very Good PROMIS-10 Everyday Activities Mostly PROMIS-10 Pain 6 PROMIS-10 Fatigue Mild PROMIS-10 Social Roles Very Good PROMIS-10 Anxious or Depressed Sometimes PROMIS PHYSICAL SCORE (range 16-68) 42.3 PROMIS MENTAL SCORE (range 21-68) 48.3 Treatments Tried Medicines applied on the skin (topical) Alzheimers or dementia No Cirrohosis or liver disease No HIV/AIDS No Pain in more than one joint in legs Yes Back or neck pain No Heart attack No Heart failure No Unclog/bypass leg arteries No Stroke, blood clot, TIA No Asthma No Emphysema, chronic bronchities, or COPD No Stomach ulcers/peptic ulcer disease No Diabetes No Poor kidney function No Rheumatic condtions No Cancer Yes Cancer spread No Leukemia or polycythemia vera No Lymphoma No Weight (lbs) 157 Height (feet) 5 feet Height (Inches) 5 BMI 26.12 (Overweight) Ever used tobacco products Yes Tobacco frequency Never WHO - Tobacco Advice 0 (You are at low risk of health and other problems from your current pattern of use.) Ever used alcoholic beverages Yes Alcohol frequency Daily or almost daily WHO - Alcohol Advice 6 (You are at risk of health and other problems from your current pattern of alcohol use.) Live Alone No Marital situation Schooling Some college or 2 - year degree Combined Household Income $50,000 to less than $75,000 # People Supported 2 Russian, , No, not Russian// Race White Health Literacy Extremely Currently working No Not working because: Retired [employer] [place] Response 08/08/2018 APD HOOS Total Score 26.9 No flowsheet data found. PHYSICAL EXAM: Ms. Mcdonald is a 75 y.o. female who is in no apparent distress, alert and cooperative. Inspection: She has arthritic changes throughout her DIP joints. There is a nail plate deformity in the right long finger. She has some scabbing over the dorsal aspect of her right long finger DIP joint where the mass was prior to her cryotherapy. She states that she has noticed some clear drainage from this area few days ago, but she is not having much in the way of symptoms today. Palpation: There was no palpable fluid collection. She has some slight discomfort at the DIP joint. ROM/Strength: She is able to flex and extend all of her fingers. Neurovascular: Sensate distally with good perfusion DIAGNOSTIC STUDIES: None obtained ASSESSMENT: Right long finger mucous cyst PLAN: She has what appears to be a mucous cyst at her right long finger DIP joint. The mass has decreased in size significantly, but she states that she continues to notice intermittent swelling and drainage. We discussed that while cyst can resolve spontaneously, if she is having difficulty due to recurrent draining cyst in this area she could consider surgical excision. We discussed the procedure in detail. We discussed that x-rays would be helpful and we would want her to follow-up with Dr. Silveira for a preoperative visit to confirm that there is in fact a mass that would be able to be excised prior to proceeding with surgery. She states that she has a trip with family planned soon, but she may want to think about this over the winter if her symptoms persist. I will place surgical orders and we will have the OR schedulers contact her. The patient understands to contact us if they have any other questions or concerns. The above documentation was completed using [employer] voice recognition software. documented in this encounter Plan of Treatment Not on filedocumented as of this encounter Visit Diagnoses Diagnosis Mucous cyst of digit of right hand documented in this encounter Care Teams Priming Powder Premix Blender Relationship Specialty Start Date End Date Javi Izaguirre DO PCP - General 06/22/[address] [place] [address] documented as of this encounter
--- OUTSIDE RECORDS SUMMARY | 2022-04-22 01:43 | XMS_ITS | Encounter Summary ---
:1945 Author Organization [facility] [place] [address] Care Team Providers Name Role Phone Javi Izaguirre DO Primary Care Provider Encounter Details Date Type Department Care Team Description 01/28/2020 Abstract [facility] [place] [address] Social History Tobacco Use Types Packs/Day [...] on filedocumented in this encounter Care Teams Commissions Coordinator Relationship Specialty Start Date End Date Javi Izaguirre DO PCP - General 06/22/[address] [place] [address] documented as of this encounter
--- OUTSIDE RECORDS SUMMARY | 2022-04-22 01:43 | XMS_ITS | Encounter Summary ---
:1945 Author Organization [place] [address] Care Team Providers Name Role Phone Javi Izaguirre DO Primary Care Provider Encounter Details Date Type Department Care Team Description 08/08/2018 Hospital Encounter Mammography/DXA at [facility], Encounter for [facility] DO screening mammogram [address] [address] [phone] Social History Tobacco Use Types Packs/Day Years [...] (FLONASE) 1 spray daily. 0 50 mcg/actuation [place], Suspension levothyroxine Take 50 mcg by mouth [...] Diagnosis Comme nts MAMMO SCREENING CAD Routine 08/08/2018 12:55 PM Encounter for Results for this AND DARION BILATERAL EST screening mammogram pr ocedure are in for breast cancer the result s section. documented in this encounter Results Mammo Screening Cad and Darion Bilateral (08/08/2018 12:55 PM EST) Anatomical Region Laterality Modality Breast Bilateral Mammography Specimen (Source) Anatomical Location Collection Method / Collectio n Time Received Time / Laterality Volume Narrative 08/09/2018 6:58 AM EST REASON FOR EXAM: Screening. History of left breast cancer. TECHNIQUE: CC and MLO views were obtaine d of both breasts. Computer aided detection was used. 3D tomosynthesis maricruz ges were obtained in addition to 2D images. COMPARISON: The study is compared with p rior images. FINDINGS: Breast density: The breasts are almost e ntirely fatty There are no suspicious microcalcificati ons, masses, or areas of distortion. There are post treatment changes in the left breast. CONCLUSION: No mammographic evidence of malignancy. RECOMMENDATION: Routine annual screening . BIRADS CATEGORY 2: BENIGN FINDINGS * ??Medical organizations agree that oralia ual screening mammography beginning at age 40 saves the most lives. * ??The risks of screening are negligibl e compared to dying from breast cancer or suffering from more aggressive treatment required when detected at a later stage. * ??No woman is at low risk for breast c ancer. * ??Some women, because of their family history, a genetic tendency, or certain other factors, should be screened with b reast MRI along with mammograms. (The number of women who fall into this categ ory is very small). The patient and health care provider should discuss the patient history and decide if earlier screening and breast MRI are appropriate . * ??Screening should continue as long as a woman is in good health and is expected to live 10 years or longer. * ??Screening mammography may not detect 10-15% of breast cancers. * ??Women should report any breast gavin es to a health care provider right away. Javi Izaguirre DO IMG MAMMO ORDERABLES documented in this encounter Visit Diagnoses Diagnosis Encounter for screening mammogram for br east cancer documented in this encounter Care Teams Straw Hat Presser Relationship Specialty Start Date End Date Javi Izaguirre DO PCP - General 06/22/[address] [place] [address] documented as of this encounter
--- OUTSIDE RECORDS SUMMARY | 2022-04-22 01:43 | XMS_ITS | Encounter Summary ---
:1945 Author Organization [facility] [place] [address] Care Team Providers Name Role Phone Javi Izaguirre Primary Care Provider Encounter Details Date Type Department Care Team Description 01/25/2019 Surgery [facility] [place] [facility] Shmuel Mirza COLONOSCOPY, [facility] [place] [address] [facility] [phone] GASTROENTEROLOGY [place], [place] [address] (Wo rk) Social History Tobacco [...] Sign Reading Time Taken Comments Blood Pressure 122/68 01/25/2019 10:45 AM EDT Pulse 64 01/25/2019 10:45 AM EDT Temperature 36.5 ??C (97.7 ??F) 01/25/2019 8:58 AM EDT Respiratory Rate 9 01/25/2019 10:45 AM EDT Oxygen Saturation 98% 01/25/2019 10:45 AM EDT Inhaled Oxygen Concentration - - Weight 72.6 kg (160 lb) 01/25/2019 9:04 AM EDT Height 165.1 cm (5' 5) 01/25/2019 9:04 AM EDT Body Mass Index 26.63 01/25/2019 9:04 AM EDT documented in this encounter Medications at Time of Discharge Medication Sig Dispensed Refills Start Date End Date fluticasone (FLONASE) 1 spray daily. 0 50 mcg/actuation [place], Suspension levothyroxine Take 50 mcg by mouth [...] cancer C50.919 ??? S/P Left TKA- 12/12/2005 ([facility]) Z96.659 ??? GERD (gastroesophageal reflux disease) K21.9 ??? Anxiety F41.9 ??? Vertigo R42 ??? Right knee pain M25.561 ??? 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 S/P Right TKA revision- poly exchange, synovectomy, lateral facet cheilectomy- 12/21/2012 ([facility])Z96.659 ??? Osteoarthritis of right hip with pain [...] complication. Informed Consent signed by patient (or hostess party sales representative). documented in this encounter Plan of [...] 01/25/2019 AM EDT 10:44 AM EDT Narrative [facility] - 01/25/2019 10:44 AM EDT Specimen requisition ordered. ??Separate Pathology report to follow Shmuel Mirza MD PATHOLOGY/CYTOLOGY ORDERABLE S Performing Organization Address City/State/[place] [address] Specimen to Pathology (01/25/2019 10:44 AM EDT) Specimen Anatomical Collection Method Collection Time Receive d Time (Source) Location / / Volume Laterality AP Specimen 01/25/2019 10:44 01/25/2019 AM EDT 10:44 AM EDT Narrative [facility] - 01/25/2019 10:44 AM EDT Specimen requisition ordered. ??Separate Pathology report to follow Shmuel Mirza MD PATHOLOGY/CYTOLOGY ORDERABLE S Performing Organization Address City/State/ZIP Code [place] [address] Surgical Pathology Report (01/25/2019 10:24 AM EDT) Component Value Ref Test Analysis Performed At [facility] gist Range Method Time Signature Surgical [id number] ? Location: 4T; EA10; A [facility] Pathology [place] Report The signing pathologist has (i) examined [...] Kelly MD Verified: ??01/29/2019 ?Pathologist Performed at: ??-[facility] Dept. of [place]ology, [place], [place] CLINICAL INFORMATION Specimen Submitted: A - [...] Organization Address City/State/[place] [address] COLONOSCOPY (01/25/2019 10:02 AM EDT) [facility] Method Time Signature COLONOSCOPY [facility] Endoscopy Procedure Date: 01/25/2019 10:02 AM ? Patient Name: Sofía Mcdonald ? Date of : 1945 ? Age: 73 ? Order #: [id number] ? Instrument Name: [id number] ? Procedure: ? Colonoscopy Indications: ? High risk colon cancer surveillance : ? Personal history of colonic p olyps Providers: ? Shmuel Mirza MD, Adelaida arenas, ? RN, Vidal Nunez, Casting Trucker Referring MD: ?Javi Izaguirre, DO Medicines: ? [...] was evaluat ed using ? the BBPS ([place] Bowel Prepar ation ? Scale) with scores [...] MAR Action Action Date Dose Rate Site fentaNYL 50 mcg/mL multi-dose Given 01/25/2019 10:22 AM EDT 25 m cg injection ONCE PRN, Starting on Mon01/25/19 at 1009, Until Mon01/25/19 at 1342, Intra-Operative (Intra-Procedure), Routine Given 01/25/2019 10:13 AM EDT 50 mcg Given 01/25/2019 10:09 AM EDT 50 mcg lactated ringers infusion New Bag 01/25/2019 9:14 AM EDT 100 mL/hr 100 mL/hr 100 mL/hr, Intravenous, CONTINUOUS, Starting on Mon01/25/19 at 0930, Until Mon01/25/19 at 1125, Endoscopy (Day of Procedure) midazolam (PF) (VERSED) multi-dose injec tion Given 01/25/2019 10:22 AM EDT 1 mg ONCE PRN, Starting on Mon01/25/19 at 1009, Until Mon01/25/19 at 1342, Intra-Operative (Intra-Procedure), Routine Given 01/25/2019 10:13 AM EDT 1 mg Given 01/25/2019 10:09 AM EDT 1.5 mg documented in this encounter Active and Recently [...] injection (CANCELED) 1009 (Given - Provider: Adelaida Mcintosh, GEMA)1013 (Given - Provider: Adelaida Mcintosh, GEMA)1022 (Given - Provider: Adelaida Mcintosh, GEMA) ONCE PRN, Starting Mon01/25/19 at 1009, Until Mon01/25/19 at 1342, Intra- Operative (Intra-Procedure), Routine midazolam (PF) (VERSED) multi-dose injection (CANCELED) 1009 (Given - Provider: Adelaida Mcintosh, GEMA)1013 (Given - Provider: Adelaida Mcintosh, GEMA)1022 (Given - Provider: Adelaida Mcintosh, RN) ONCE PRN, Starting Mon01/25/19 at 1009, Until Mon01/25/19 at 1342, Intra- Operative (Intra-Procedure), Routine documented in this encounter Care Teams Faculty Research Physician Relationship Specialty Start Date End Date Javi Izaguirre DO PCP - General 06/22/[address] [place] [address] documented as of this encounter
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
--- OUTSIDE RECORDS SUMMARY | 2022-04-22 01:43 | XMS_ITS | Encounter Summary ---
:1945 Author Organization [facility] [place] [address] Care Team Providers Name Role Phone DmitriyJavi agrawal Primary Care Provider Encounter Details Date Type Department Care Team Description 12/10/2015 Office Visit Hematology/Oncology Felisa Gilliland, Sandra ellington neoplasm of left female breast, unspecified site of breast; at [address] [place], [place] [address] [place], [place] [id number] (Wo rk) Social History Tobacco Use Types [...] Sign Reading Time Taken Comments Blood Pressure 138/72 12/10/2015 3:00 PM EDT Pulse 67 12/10/2015 3:00 PM EDT Temperature 36.7 ??C (98.1 ??F) 12/10/2015 3:00 PM EDT Respiratory Rate - - Oxygen Saturation 99% 12/10/2015 3:00 PM EDT Inhaled Oxygen Concentration - - Weight 71.2 kg (157 lb) 12/10/2015 3:00 PM EDT Height - - Body Mass Index 26.13 06/01/2015 1:09 PM EST documented in this encounter Progress Notes Felisa Gilliland, SUPERVISOR FABRICATION - 12/10/2015 3:32 PM EDT DIAGNOSIS:1) Stage IIA (pT1c pN1 MX), IDC left breast, low-grade, ER/MN positive, HER-2/ricardo negativebreast cancer. S/P 4 cycles AC and 12 weeks Taxol completed 02/07 now on Femara. 2) residual neuropathy lower extremities. 3) long- standing moderately severe arthralgias and myalgias Subjective: Felisa comes in today for followup. She remains on Femara 2.5mg daily and has been on it now for nearly 5yrs. She had a difficult winter with anxiety due to family issues but is now feeling better and anxious to exercise and lose weight. She had her hip replaced recently and feels like she isn't fully recovered back to baseline from that event. Past medical history and social are reviewed [...] Stage IIA (pT1c pN1 MX), IDC, low-grade, ER/MN positive, HER-2/ricardo negative L breast cancer. 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 Assessment/Plan: Felisa is doing well and now has taken Femara for almost 5yrs. She would like to go off of this and Dr. Cuevas is agreeable to that plan. We will see her back in Jul. After her mammogram in Jun, and sheand Dr. Cuevas will make a plan from that point onwards for followup. RTC with CBC, CMP. Felisa Gilliland, MSN, MANAGER COUNTRY, AOCN Hematology/Oncology Nurse Practitioner [place], [place] [phone] documented in this encounter Miscellaneous Notes Addendum Note - Felisa Gilliland APRN - 12/10/2015 5:31 PM EDT Addended by: FELISA GILLILAND on: 12/10/2015 05:31 PM Modules accepted: Orders documented in this encounter Plan of Treatment Not on filedocumented as of this encounter Visit Diagnoses Diagnosis Malignant neoplasm of left female breast , unspecified site of breast Anxiety Anxiety state, unspecified documented in this encounter Care Teams Equine Dentist Relationship Specialty Start Date End Date Javi Izaguirre DO PCP - General 06/22/10 [address] [place] [address] documented as of this encounter
--- OUTSIDE RECORDS SUMMARY | 2022-04-22 01:43 | XMS_ITS | Encounter Summary ---
:1945 Author Organization [facility] [place] [address] Care Team Providers Name Role Phone Javi Izaguirre Primary Care Provider Encounter Details Date Type Department Care Team Description 04/09/2018 Interpretation Only [facility] Ellis Zhao MD [address] [place] [address] [place], [place] [address] Social History Tobacco Use Types [...] Date/Time Associated Diagnosis Comme nts XR KNEE 4 OR MORE Routine 04/09/2018 10:30 AM Res ults for this VIEWS BILAT EDT procedure are i n the results section. documented in this encounter Results XR Knee 4 or more views Bilat (04/09/2018 10:30 AM EDT) Anatomical Region Laterality Modality Knee Bilateral Radiographic Imaging Specimen (Source) Anatomical Collection Method Collection Time Re ceived Time Location / / Volume Laterality 04/09/2018 10:30 AM EDT Impressions 04/09/2018 12:16 PM EDT No change from 07/06/2016. Narrative 04/09/2018 12:16 PM EDT EXAMINATION: KNEE BL/WB & 4+VWS -BLT CLINICAL HISTORY: ASSESS HEALING, AP LAT ERAL AND SUNRISE VIEW TECHNIQUE: Bilateral frontal weightbearing sunrise and lateral views COMPARISON: Knee x-ray examination 07/06/2016 FINDINGS: Unchanged appearance and alignment of th e bilateral knee total arthroplasty components including threaded screw comp onent involving the right tibial tray. No new lucency. No fracture. The resurfa shreya patella remain well situated in their respective trochlear grooves. No l arge suprapatellar knee joint effusion. Procedure Note Jeramy Mackenzie MD - 04/09/2018Formattin g of this note might be different from the original. EXAMINATION: KNEE BL/WB & 4+VWS -BLT CLINICAL HISTORY: ASSESS HEALING, AP LAT ERAL AND SUNRISE VIEW TECHNIQUE: Bilateral frontal weightbearing sunrise and lateral views COMPARISON: Knee x-ray examination 07/06/2016 FINDINGS: Unchanged appearance and alignment of th e bilateral knee total arthroplasty components including threaded screw comp onent involving the right tibial tray. No new lucency. No fracture. The resurfa shreya patella remain well situated in their respective trochlear grooves. No l arge suprapatellar knee joint effusion. IMPRESSION No change from 07/06/2016. Authorizing Provider Result Christy Lau MD IMG DX ORDERABLES documented in this encounter Visit Diagnoses Not on filedocumented in this encounter Care Teams Messenger Copy Relationship Specialty Start Date End Date Javi Izaguirre DO PCP - General 06/22/[address] [place] [address] documented as of this encounter
--- OUTSIDE RECORDS SUMMARY | 2022-04-22 01:43 | XMS_ITS | Encounter Summary ---
:1945 Author Organization [facility] Address [address] [place] [address] Care Team Providers Name Role Phone Javi Izaguirre DO Primary Care Provider Encounter Details Date Type Department Care Team Description 10/02/2020 Hospital Encounter Mammography/DXA at [facility]re, Encounter for [facility] DO screening mammogram [address] [phone] Social History Tobacco Use Types Packs/Day Years [...] Sig Dispensed Refills Start Date End Date b complex vitamins Take 1 capsule by 0 Capsule mouth daily. [id number]-[id number] Take by mouth. 0 ORAL fluticasone (FLONASE) 1 spray daily. 0 50 mcg/actuation [place], Suspension levothyroxine Take 50 mcg by mouth 0 (Synthroid) 50 mcg daily. Tablet multivitamin Take 1 tablet by mouth 0 (THERAGRAN) Tablet daily. lutein 20 mg Tablet Take 20 mg by mouth 0 daily. LORazepam (ATIVAN) 1 mg Take 0.5 mg by mouth 0 Tablet daily as needed. amLODIPine (NORVASC) 5 Take 5 mg by mouth 0 mg Tablet daily. ibuprofen Take 400 mg by mouth 0 (ADVIL;MOTRIN) 200 mg as needed. Reported on tablet 08/15/2016 acetaminophen (TYLENOL) Take 2 tablets by 0 12/22 500 mg tablet mouth every 8 hours. Last day for scheduled dosing = December 31. Then may take every 8 hours as needed. Do not take more than 4,000 mg of acetaminophen in 24 hours. omeprazole (PRILOSEC) Take 20 mg by mouth 0 10 mg Capsule, Delayed daily. Release(E.C.) NONFORMULARY REQUEST I promise / medication 0 10/04/2021 for dry eyes in pill form documented as of this encounter Plan of Treatment Not on filedocumented as of this encounter Procedures Procedure Name Priority Date/Time Associated Diagnosis Comme nts MAMMO SCREENING CAD Routine 10/02/2020 2:27 PM Encounter for R esults for this AND DARION BILATERAL EST screening mammogram pr ocedure are in for breast cancer the result s section. documented in this encounter Results Mammo Screening Cad and Darion Bilateral (10/02/2020 2:27 PM EST) Anatomical Region Laterality Modality Breast Bilateral Mammography Specimen (Source) Anatomical Location Collection Method / Collectio n Time Received Time / Laterality Volume Narrative 10/05/2020 9:33 AM EST REASON FOR EXAM: Screening. History of left breast cancer. TECHNIQUE: CC and MLO views were obtaine d of both breasts. Computer aided detection was used. 3D tomosynthesis maricruz ges were obtained in addition to 2D images. Comparison: The study is compared with p rior images. FINDINGS: Breast density: There are scattered area s of fibroglandular density. There are no suspicious microcalcificati ons, masses, or areas of distortion. There are post treatment changes in the left breast. CONCLUSION: No mammographic evidence of malignancy. RECOMMENDATION: Routine screening. BIRADS CATEGORY 2: BENIGN FINDINGS * ??Regular screening mammograms startin g between age 40 and 50 reduces the risk of from breast cancer. * ??All screening tests have both risks and benefits. These risks and benefits should be assessed for each individual p atient through discussion with their provider to determine their preferred br east cancer screening schedule. * ??Women should report any breast gavin es to a health care provider right away. * ??Some women, because of their family history, a genetic tendency, or other factors, should be screened with annual breast MRI as well as with mammograms. (The number of women who fall into this category is very small). Patients and health care providers should discuss eac h patients history to decide if earlier screening and/or breast MRI are appropri ate. * ??Screening should continue as long as a woman is in good health and is expected to live 10 years or longer. * ??Screening mammography may not detect 10-15% of breast cancers. Thank you for letting us participate in the care of this patient. For questions regarding this report, please contact e number below. ? Electronically signed by: Rand simpson MD, [facility] ([phone]), at 10/05/2020 9:33 AM Javi TODD MAMMO ORDERABLES documented in this encounter Visit Diagnoses Diagnosis Encounter for screening mammogram for br east cancer documented in this encounter Care Teams Retail Route Supervisor Relationship Specialty Start Date End Date Javi Izaguirre DO PCP - General 06/22/[address] [place] [address] documented as of this encounter
--- OUTSIDE RECORDS SUMMARY | 2022-04-22 01:43 | XMS_ITS | Encounter Summary ---
:1945 Author Organization [facility] [place] [address] Care Team Providers Name Role Phone Javi Izaguirre DO Primary Care Provider Encounter Details Date Type Department Care Team Description 07/07/2021 Notes Only Sleep Center at [facility] Lisa Page [address] [place] [address] Social History Tobacco Use Types Packs/Day Years Used Date Former Smoker Quit: 12/12/18 84 Smokeless Tobacco: Never Used Comments: remote hx of smoking. Alcohol Use Standard Drinks/Week Comments Yes 7 (1 standard drink = 0.6 oz pure alcoho l) Sex Assigned at Date Recorded Female 03/31/2021 3:33 PM EDT documented as of this encounter Progress Notes Lisa Page - 07/07/2021 11:24 AM EST TALKED WITH PATIENT AND SHE WILL CALL BACK TO SCHEDULE HER YEARLY FOLLOW UP WITH NM IN July 2021 AROUND THE SHE WANTS TO COORDINATE APPOINTMENTS WITH HER documented in this encounter Plan of Treatment Not on filedocumented as of this encounter Visit Diagnoses Not on filedocumented in this encounter Care Teams Glove Printer Relationship Specialty Start Date End Date Javi Izaguirre DO PCP - General 06/22/[address] [place] [address] documented as of this encounter
--- OUTSIDE RECORDS SUMMARY | 2022-04-22 01:43 | XMS_ITS | Encounter Summary ---
:1945 Author Organization [facility] [place] [address] Care Team Providers Name Role Phone Javi Izaguirre DO Primary Care Provider Encounter Details Date Type Department Care Team Description 08/18/2017 Hospital Encounter Mammography at [facility] Javi Izaguirre, HX: breast cancer [address] [address] [place], [place] [phone] [address] Social History Tobacco Use Types Packs/Day Years [...] Sig Dispensed Refills Start Date End Date lutein 20 mg Tablet Take 20 mg [...] 0 10 mg Capsule, Delayed daily. Release(E.C.) RESTASIS 0.05 % Place 1 drop into both 0 07/11/20 15 02/12/2020 Dropperette eyes 2 times daily. mometasone (ELOCON) Apply topically daily 0 07/0602/12/2020 0.1 % Cream as needed. letrozole (FEMARA) 2.5 Take 1 tablet by mouth 90 tablet 4 0 03/05/2015 03/22/2018 mg TabletIndications: daily. Breast cancer, female, unspecified laterality clonazePAM (KLONOPIN) Take 1 mg by mouth 2 0 02/12/2020 1 mg Tablet times daily as needed for Anxiety. Reported on 08/15/2016 UNABLE TO FIND Reported on 08/15/2016 0 03/22/2018 amoxicillin (AMOXIL) Take 4 capsules 1 hour 20 capsule 0 06/201402/12/2020 500 mg capsule prior to dental procedures or cleanings. documented as of this encounter Plan of Treatment Not on filedocumented as of this encounter Procedures Procedure Name Priority Date/Time Associated Diagnosis Comme nts MAMMO SCREENING CAD Routine 08/18/2017 10:20 AM HX: breast can cer Results for this AND DARION BILATERAL EST procedure are in the results section. documented in this encounter Results Mammo Screen CAD and Darion Bilat (Generic) (08/18/2017 10:20 AM EST) Anatomical Region Laterality Modality Breast Bilateral Mammography Specimen (Source) Anatomical Location Collection Method / Collectio n Time Received Time / Laterality Volume Narrative 08/18/2017 10:37 AM EST REASON FOR EXAM: Screening. History of left breast cancer. TECHNIQUE: CC and MLO views were obtaine d of both breasts. Computer aided detection was used. 3D tomosynthesis maricruz ges were obtained in addition to 2D images. Comparison: The study is compared with p rior images. FINDINGS: Breast density:The breasts are almost en tirely fatty. There are no suspicious microcalcificati ons, masses, or areas of distortion. There are post treatment changes in the left breast. CONCLUSION: No mammographic evidence of malignancy. RECOMMENDATION: Routine annual screening . BIRADS CATEGORY 2: BENIGN FINDINGS * ??The [place] an d The Society of Breast Imaging recommend annual screening beginning at age 40 for the general female population. * ??Screening should continue as long as a woman is in good health and is expected to live 10 more years or longer . * ??All women should be familiar with th e known benefits, limitations, and potential harms linked [...] earlier screening and breast MRI are appropriate. Javi TODD MAMMO ORDERABLES documented in this encounter Visit Diagnoses Diagnosis HX: breast cancer Personal history of malignant neoplasm o f breast documented in this encounter Care Teams Chief Medical Technologist Relationship Specialty Start Date End Date Javi Izaguirre DO PCP - General 06/22/[address] [place] [address] documented as of this encounter
--- OUTSIDE RECORDS SUMMARY | 2022-04-22 01:43 | XMS_ITS | Encounter Summary ---
:1945 Author Organization [facility] [place] [address] Care Team Providers Name Role Phone Dmitriy Javi BURKS Primary Care Provider Reason for Visit Consultation (Routine) - Closed Specialty Diagnoses / Procedures Referred By Contact Refer red To Contact Sleep Center Diagnoses Snoring Frequent nocturnal awakening Non-restorative sleep Insomnia, unspecified type Stephanie Polk, [facility] Sleep Medicine Procedures PRG POLYSOM 6+ YRS SLEEP W 4+ ADDL BINA ATTND [facility] [address] [place] [address] [place] [address] Referral ID Status Reason Start Date Expiration Date Visits V isits Requested Authorized [id number] Closed Test Only 10/05/2017 10/05/2018 1 1 Encounter Details Date Type Department Care Team Description 01/04/2018 [facility]obstructive Heater [facility] sleep apnea) [address] [place] [address] SLEEP DISORDERS [phone] [place], [place] [address] Social History Tobacco Use Types Packs/Day Years [...] Sign Reading Time Taken Comments Blood Pressure 155/71 01/04/2018 8:00 PM EDT Pulse 61 01/04/2018 8:00 PM EDT Temperature - - Respiratory Rate 12 01/04/2018 8:00 PM EDT Oxygen Saturation - - Inhaled Oxygen Concentration - - Weight 72.8 kg (160 lb 8 oz) 01/04/2018 8:00 PM EDT Height 165.1 cm (5' 5) 01/04/2018 8:00 PM EDT Body Mass Index 26.71 01/04/2018 8:00 PM EDT documented in this encounter Progress Notes Mery Shafer MD - 01/04/2018 7:30 PM EDT Images from the original note were not included. REPORT OF DIAGNOSTIC POLYSOMNOGRAM IDENTIFYING INFORMATION Sofía Mcdonald : 1945 REFERRING PHYSICIAN: Javi Izaguirre DO PRIMARY CARE PHYSICIAN: Javi Izaguirre DO History Of Present Illness: Sofía Mcdonald is a 72 y.o. female who presents for a polysomnogram. Polysomnography: The patient's sleep was evaluated for one night at the [facility]. Sleep was monitored in accordance with recommended AASM guidelines. The recording also included oral/nasal airflow, chest and abdominal respiratory effort, nasal pressure, single channel EKG, intercostal EMG, bilateral tibialis EMG, and oxygen saturation (by pulse oximeter). Comment: - Sleep/EEG: The patient had no discernable posterior dominant rhythm when awake with eyes closed. Sleep efficiency was 72% which is reduced. NREM and REM sleep were noted. REM percentage was reduced at 4%. - Respiratory: Obstructive sleep apnea of a severe degree (AHI of 43) noted. CMS AHI of 10 which includes only apneas and hypopneas with 4% desaturations noted. Minimum saturation asleep of 87%. Mean saturation asleep was 93%. Only 0.3 minutes were spent with a saturation less than or equal to 88%. The sleep apnea may be somewhat positional in that the supine AHI is 50 and the non-supine AHI is 23. Sleep stage may have played some role with the higher AHI supine in that REM was observed supine but was not observed non-supine. - EKG: Normal sinus rhythm with no signifcant ectopy but what appears to be a widened QRS complex. Please see the 10 second fragment from a 30 second epoch from the overnight study that follows: - EMG: PLM index of 27. - Study Conditions: Head of the bed: flat with two pillows Supplemental oxygen: room air - Subjective: The post sleep study questionnaire indicated the following: ...how did you sleep last night: slightly better ..how well rested and alert do you feel right now: slightly better Assessment: Ms. Sofía Mcdonald is a 72 y.o. female whose polysomnogram reveals obstructive sleep apnea. Using hypopnea type 1A criteria (includes hypopneas [...] one lead but clinical correlation is warranted. I spoke with the patient 01/11/18 and relayed test results and recommendations. Recommendations: 1. CPAP trial recommended. Auto CPAP also offered as an alterative. She will think about her optionsand let my office know her decision. 2. Clinical correlation with Javi Izaguirre DO in regards to the possibly widened QRS complex in the ECG 3. Blood pressure monitoring recommended given the elevated reading of 155/71 prior to the study. [facility] REPORT of Diagnostic Polysomnography Patient Name: Sofía Mcdonald Study Date: 01/04/2018 Age & Sex: 72 y.o. Female Height: 5'5 Date of : 1945 Weight: 160.5 lbs BMI: 26.7 Referring Provider: Recording Technologist: MARGIE COOL Scoring Technologist: LIZA MELTON, CEMENT MASON HELPER, RPSGT, RST Sleep Fellow: Sleep Specialist: MERY SHAFER M.D. Scoring Technologist Comments: ECG: NSR Ectopy: PAC???s, Run of Narrow Complex Tachycardia in epoch 192. Description of Study: Diagnostic polysomnography was performed utilizing frontal, central & occipital EEG, EOG, submentalis EMG, oronasal thermocouple, nasal pressure, ECG, thoracic and abdominal inductance plethysmography, right and left anterior tibialis EMG, snore sensor, and pulse oximetry according to AASM established guidelines. Study Details & Sleep Architecture Diagnostic Start Time (Lights Off): 22:50:25 Total Recording Time: 460.0 min Diagnostic End Time (Lights On): 06:30:26 Total Sleep Time (minutes): 329.5 Total Num. of Stage Shifts: 128 Total Sleep Time (hrs:min): 5:29.5 Total Num. of Awakenings: 21 Sleep Onset Latency: 31.0 min Total Num. of Trans. to N1: 55 Sleep Efficiency: 71.6% Total Num. of REM Periods: 3 Stage Results: Time (minutes) %TST Latency (minutes) WASO: 99.5 - - N1: 49.5 15.0 0.0 N2: 268.5 81.5 0.5 N3: 0.0 0.0 - REM: 11.5 3.5 340.0 251.0 (minus wake) Arousal Counts: NREM REM Total Spontaneous: 70 (13.2/hr) 0 (0.0/hr) 70 (12.7/hr) Sum of All Arousals: 318 (60.0/hr) 7 (36.5/hr) 325 (59.2/hr) Spontaneous arousals include only EEG arousals not associated with a respiratory event or PLM. Body Position: Supine Non-Supine Non-REM: 225.5 min 92.5 min REM: 11.5 min 0.0 min Total Sleep: 237.0 min (71.9%) 92.5 min (28.1%) Respiratory Events Apneas Obstructive Mixed Central Total Apneas Total Count: 15 0 6 21 Mean Duration (sec): 13 0 12 13 Longest Duration (sec): 22.6 0 14.9 23 Index (REM/NREM): 20.9 / 2.1 0.0 / 0.0 5.2 / 0.9 26.1/ 3.0 Index (Sup./Non-Sup.): 3.8 / 0.0 0.0 / 0.0 1.3 / 0.6 5.1/ 0.6 Index (Total): 2.7 0.0 1.1 3.8 Hypopneas & RERAs Hypopnea Definitions: Hypopnea* CMS Hypopnea 3% desat [place]. Hypopneas All RERA Total Count: 31 182 213 39 Mean Duration (sec): 20.3 16.4 16 18.0 Longest Duration (sec): 40.3 40.3 40 30.2 Index (REM/NREM): 57.4/ 38.1 83.5/ 48.5 Index (Sup./Non-Sup.): 7.3 / 1.3 45.3/ 22.1 6.1 / 9.7 Index (Total): 5.6 33.2 38.8 7.1 *[facility]-defined hypopneas include only hypopneas with a >=4% oxygen desaturation. Includes hypopneas with an arousal or with a 3%-4% desaturation. [facility] Hypopneas not included. Periodic Breathing Total Sleep Time Time (minutes) 0.0 Time (%Sleep Time) 0.0 AHI: Includes all apneas & all hypopneas associated with an arousal or a ? 3% desaturation. Supine Non-Sup. REM NREM Total Count: 199 35 16 218 234 Index (events/hr): 50.4 22.7 83.5 41.1 AHI = 42.6 CMS AHI: Includes all apneas & only hypopneas associated with a ? 4% desaturation. Supine Non-Sup. REM NREM Total Count: 49 3 11 41 52 Index (events/hr): 12.4 1.9 57.4 7.7 CMS = 9.5 Obstructive AHI: Includes obstructive & mixed apneas as well as all hypopneas. Excludes central apneas and RERAs. Supine Non-Sup. REM NREM Total Count: 194 34 15 213 228 Index (events/hr): 49.1 22.1 78.3 40.2 OAHI = 41.5 RDI: Includes all apneas, all hypopneas, all RERAs, and all ???Unsure??? events. Supine Non-Sup. REM NREM Total Count: 223 50 16.0 257.1 273 Index (events/hr): 56.5 32.4 83.5 48.5 RDI = 49.7 Oxygen Saturation Details SpO2 Awake NREM REM All Sleep MANDO Report Sleep Mean: 94% 93% 93% 93% 3% MANDO 13.5 14.4 Minimum: - 87% 87% 87% 4% MANDO 7.0 7.3 SpO2 Awake (minutes) NREM (minutes) REM (minutes) All Sleep (minutes) ?90% 1.7 3.3 0.5 3.9 ?89% 1.2 1.2 0.3 1.5 ?88% 1.0 0.2 0.1 0.3 90-99% 121.5 314.7 11.0 325.6 80-89.9% 0.9 1.2 0.3 1.5 79-79.9% 0.0 0.0 0.0 0.0 60-69.9% 0.0 0.0 0.0 0.0 50-59.9% 0.0 0.0 0.0 0.0 ?50% 0.3 0.0 0.0 0.0 Cardiac Details Heart Rate (bpm) Total Study NREM REM All Sleep Minimum - 50 52 50 Maximum 120 87 67 87 Mean - 60 57 60 Limb Movement Details Periodic Limb Movements Total PLMs (and Index) PLMs w/ Arousals (and Index) Wake (after ???Lights Off???): 0 (0.0/hr) 0 (0.0/hr) NREM: 149 (28.1/hr) 13 (2.5/hr) REM: 0 (0.0/hr) 0 (0.0/hr) Total Sleep: 149 (27.1/hr) 13 (2.4/hr) Graphs PLMs Body Position Supplemental Oxygen documented in this encounter Plan of Treatment Scheduled Referrals Name Type Priority Associated Diagnoses Order S chedule Referral to Sleep Outpatient Referral Routine Snoring Ordered: Disorders Center Frequent nocturnal 10/05 awakening Non-restorative sleep Insomnia, unspecified type documented as of this encounter Visit Diagnoses Diagnosis ROXY (obstructive sleep apnea) Obstructive sleep apnea (adult) (pediatr ic) documented in this encounter Care Teams Leather Heel Breaster Relationship Specialty Start Date End Date Javi Izaguirre DO PCP - General 06/22/[address] [place] [address] documented as of this encounter
--- OUTSIDE RECORDS SUMMARY | 2022-04-22 01:43 | XMS_ITS | Encounter Summary ---
:1945 Author Organization [facility] [place] [address] Care Team Providers Name Role Phone Javi Izaguirre DO Primary Care Provider Reason for Referral Diagnostic Test (Routine) - Closed Specialty Diagnoses / Procedures Referred By Contact Refer red To Contact Radiology Diagnoses Encounter for screening mammogram for breast cancer Javi Izaguirre DO [facility] Rad Mammography Procedures Mammo Screening Cad and Darion Bilateral [address] [place], [place] [address] [place] [address] Phone: Referral ID Status Reason Start Date Expiration Date Visits V isits Requested Authorized [id number] Closed Specialty 08/20/2021 02/17/2023 1 1 Service Requested Reason for Visit Diagnostic Test (Routine) - Closed Specialty Diagnoses / Procedures Referred By Contact Refer red To Contact Radiology Diagnoses Encounter for screening mammogram for breast cancer Javi Izaguirre DO [facility] Rad Mammography Procedures Mammo Screening Cad and Darion Bilateral [address] [place], [place] [address] [place] [address] Phone: Referral ID Status Reason Start Date Expiration Date Visits V isits Requested Authorized [id number] Closed Specialty 08/20/2021 02/17/2023 1 1 Service Requested Encounter Details Date Type Department Care Team Description 09/28/2021 Hospital Encounter Mammography/DXA at [facility], Encounter for [facility] screening mammogram [place] [address] [employer] [facility] [address] [place] [address] [phone] Social History Tobacco Use Types Packs/Day Years [...] 1 capsule by 0 Capsule mouth daily. ESIOIAT-AZCEABKAN-TSOC Take by mouth. 0 ORAL fluticasone (FLONASE) 1 spray daily. 0 50 mcg/actuation [place], Suspension levothyroxine Take 50 mcg by mouth [...] 4,000 mg of acetaminophen in 24 hours. amoxicillin (Amoxil) TAKE FOUR CAPSULES BY 0 08/01 500 mg Capsule MOUTH 1 HOUR PRIOR TO DENTAL PROCEDURE traZODone (Desyrel) 50 every day at bedtime 0 mg Tablet omeprazole (PRILOSEC) Take 20 mg by mouth 0 10 mg Capsule, Delayed daily. Release(E.C.) loratadine (Claritin) Daily 0 01/13/202101/2022 10 mg Tablet NONFORMULARY REQUEST I promise / medication 0 10/04/2021 for dry eyes in pill form documented as of this encounter Plan of Treatment Not on filedocumented as of this encounter Procedures Procedure Name Priority Date/Time Associated Diagnosis Comme nts MAMMO SCREENING CAD Routine 09/28/2021 10:33 AM Encounter for Results for this AND DARION BILATERAL EST screening mammogram pr ocedure are in for breast cancer the result s section. documented in this encounter Results Mammo Screening Cad and Darion Bilateral (09/28/2021 10:33 AM EST) Anatomical Region Laterality Modality Breast Bilateral Mammography Specimen (Source) Anatomical Location Collection Method / Collectio n Time Received Time / Laterality Volume Narrative 09/28/2021 11:38 AM EST EXAMINATION: MAMMO SCREENING CAD AND DARION BILATERAL REASON FOR EXAM: Screening. History of l eft breast cancer. TECHNIQUE: CC and MLO views were obtaine d of both breasts. Computer aided detection was used. 3D tomosynthesis maricruz ges were obtained in addition to 2D images. COMPARISON: The study is compared with p rior images. FINDINGS: Breast density: There are scattered area s of fibroglandular density There are no suspicious microcalcificati ons, masses, or areas of distortion. There are post treatment changes in the left breast. CONCLUSION: No mammographic evidence of malignancy. RECOMMENDATION: Routine annual screening . BIRADS CATEGORY 2: BENIGN FINDINGS * ??Regular screening mammograms startin g between age 40 and 50 reduces the risk of from breast cancer. * ??All screening tests have both risks and benefits. These risks and benefits should be assessed for each individual p atient through discussion with their provider to determine their preferred east cancer screening schedule. * ??Women should [...] Patients and health care providers should discuss the history of each patient to decide if earlier screening and/or breast MRI are appropriate. * ??Screening should continue as long as a woman is in good health and is expected to live 10 years or longer. * ??Screening mammography may not detect 10-15% of breast cancers. : Thank you for letting us participate in the care of this patient. ??If you are a health care provider and have any questi ons regarding this report, please contact the number below. ??For patients who have questions please contact the health health care marketing manager that requested your imaging first. ? Javi TODD MAMMO ORDERABLES documented in this encounter Visit Diagnoses Diagnosis Encounter for screening mammogram for br east cancer documented in this encounter Care Teams Help Desk Support Relationship Specialty Start Date End Date Javi Izaguirre DO PCP - General 06/22/[address] [place] [address] documented as of this encounter
--- OUTSIDE RECORDS SUMMARY | 2022-04-22 01:43 | XMS_ITS | Encounter Summary ---
:1945 Author Organization [facility] [place] [address] Care Team Providers Name Role Phone Javi Izaguirre Primary Care Provider Reason for Visit Reason Comments Skin Check Encounter Details Date Type Department Care Team Description 10/18/2021 Office Visit Dermatology at [facility]; Sri Costa MD Multiple benign nevi; [address] [facility] [place] [address] [address] [phone] [facility] [place], [place] [address] Social History Tobacco Use Types Packs/Day Years Used Date Former Smoker Quit: 12/12/18 82 Smokeless Tobacco: Never Used Comments: remote hx of smoking. Alcohol Use Standard Drinks/Week Comments Yes 7 (1 standard drink = 0.6 oz pure alcoho l) Sex Assigned at Date Recorded Female 03/31/2021 3:33 PM EDT documented as of this encounter Progress Notes Clare Jim MD - 10/18/2021 1:40 PM EDT Images from the original note were not included. DEPARTMENT OF DERMATOLOGY [facility] Provider: Clare Jim MD Patient's preferred name Sofía Preferred contact method for results [x]?myDH []?Letter []?Phone: Detailed phone message OK? Yes Are there any other people with whom we may discuss your care? , [place] ?? PAST MEDICAL HISTORY If no, type N. If yes, type date, location, treatment Melanoma N Dysplastic nevi N SCC N BCC N AKs N UV Exposure & Protection N Other relevant past medical history (i.e. 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 PRE-PROCEDURE SCREENING If no, type N. If yes, include details below Allergy to lidocaine, epinephrine, Dermabond, chlorhexidine, or adhesives: N?? Bleeding disorder or blood thinners: N Implanted devices (Pacemaker, defibrillator, deep brain stimulator, cochlear implant): N History of Present Illness: Sofía Mcdonald is a 75 y.o. year old. Patient returns to clinic today forevaluation of skin exam. Notes rash under the right breast, improving recently. Worsened by sweat and occlusion. Previously applied neosporin with some improvement. Also notes some dry, flaky skin overthe brows intermittently. Last visit at [facility] Derm: 02/17/2021 Last visit with this provider: Visit date not found Medications: Reviewed in eD-H Allergies: Reviewed in eD-H Skin Examination: Full skin examination: Patient asked to undress to their comfort level. Verbalized that the provider's preference is that patient removal all clothing and that the provider will not examine areas patient elects to keep covered. Examination of the scalp, hair, head, face, ears, neck, chest, axillae, abdomen, back, buttocks, and upper and lower extremities.Genitalia was not examined. Assessment/Plan #. Seborrheic Dermatitis EXAM: on the face, there are faint pink scaly patches on the brows. - Etiology and treatment options discussed. - Rx. Ketoconazole 2% cream BID for facial involvement -Recommend OTC Amlactin Rapid Relief Lotion or CeraVe SA to the face once to twice daily. #. Multiple Benign Nevi EXAM: scattered on the trunk and extremities, there are light to medium brown macules and papules with regular pigment network on dermoscopy. - Benign nature discussed. No further intervention indicated. - ABCDEs of melanoma reviewed. Recommend photoprotection with minimum SPF 30 reapplied every 2 hours. - Continue to clinically monitor #. Intertrigo EXAM: Patient with slightly erythematous and macerated plaques of the right > left inframammary crease. - Intertrigo is a chronic inflammatory condition of approximating or opposing skin surfaces (intertriginous skin) such as the axillae, groin, inframammary folds, abdominal folds, and/or labiocrural folds.Clinically, there is erythema and sometimes maceration, erosions, or fissuring. Most frequently seen in obese and/or diabetic patients - Ensure intertriginous areas are completely dry after bathing - Avoid excessive heat and/or sweating as friction and moisture can exacerbate disease - Patient would benefit from tucking cotton or linen towels or cloths between the opposing skin folds. - Avoid clothing that is too tight or that chafes. - Rx. Ketoconazole 2% cream BID as needed. - If increase sweating, may start OTC Dove Anti Perspirant [place] at night before bedtime Other items to document in the assessment/plan if relevant ??? Sun protection discussed (protective clothing and SPF30+ broad-spectrum sunscreen) ??? OTC skin products discussed RTC: 1-2 years for FSE []Note routed to stenographer secretary [x]Recall has been placed in scheduling system []Appointment scheduled at checkout Scribe attestation: BRIAN Roberts who has performed the documentation for this encounterin the presence of and acting as a scribe for Clare Jim MD. I performed the above scribed service and agree with the accuracy of the documentation in this encounter. Reviewed and signed by: Clare Jim MD Dermatology [facility] Patient seen and evaluated with staff non licensed operator: Liz Red MD Dermatology [facility] Liz Red MD - 10/18/2021 1:40 PM EDT I directly supervised Dr. Jim during this office visit. Dr. Jim presented the history and physical exam to me. I then saw and examined this patient with Dr. Jim . We reviewed the history and pertinent details and I confirmed the physical findings. I agree with the details of the history and physical exam as documented in Dr. Jim's note. Liz Red MD Staff Physician documented in this encounter Plan of Treatment Not on filedocumented as of this encounter Visit Diagnoses Diagnosis Intertrigo Other specified erythematous condition Multiple benign nevi Benign neoplasm of skin, site unspecifie d Seborrheic dermatitis Seborrheic dermatitis, unspecified documented in this encounter Care Teams Circular Head Saw Operator Relationship Specialty Start Date End Date Javi Izaguirre DO PCP - General 06/22/[address] [place] [address] documented as of this encounter
--- OUTSIDE RECORDS SUMMARY | 2022-04-22 01:43 | XMS_ITS | Encounter Summary ---
:1945 Author Organization [facility] [place] [address] Care Team Providers Name Role Phone Javi Izaguirre Primary Care Provider Encounter Details Date Type Department Care Team Description 04/19/2018 Interpretation Only Dorys Serra [facility] Ellis Zhao MD [address] [place] [address] [place], [place] [address] Social History Tobacco Use Types [...] Procedure Name Priority Date/Time Associated Comments Diagnosis XR JOINT ASPIRATION Routine 04/19/2018 8:09 AM Re sults for this - LARGE JOINT LEFT EDT procedure are in the results section. documented in this encounter Results XR Fluoro Guided Joint Aspiration Large Left (04/19/2018 8:09 AM EDT) Anatomical Region Laterality Modality Left Radiographic Imaging Specimen (Source) Anatomical Collection Method Collection Time Re ceived Time Location / / Volume Laterality 04/19/2018 8:09 AM EDT Impressions 04/19/2018 9:28 AM EDT Fluoroscopic guided left intraarticular hip joint steroid injection. Patient encouraged to maintain a pain lo g. Narrative 04/19/2018 9:28 AM EDT EXAMINATION: FLR GUID BX/ASP/INJ HIP -LT CLINICAL HISTORY: ?? - OA, PAIN PATTERNS ATYPICAL ??LEFT HIP, ?? TECHNIQUE: Written informed consent was obtained. A timeout procedure was performed prior to commencing the procedure. The patient was positioned supine. The left hip joint was visualized under fluoroscopy. The entry site was identified lateral to the palpated femoral artery pulse and th e area was prepped and draped using sterile technique. The site was anesthet ized with 2% Lidocaine. ??Under fluoroscopic guidance a 22-gauge spinal needle was then advanced into the hip joint. Intra-articular positioning confi rmed with air injection. A volume of 10 mL Bupivacaine 0.25% was drawn up and mi xed with Kenalog 40 mg, which was then injected into the joint space. The needl e was then removed and satisfactory hemostasis achieved. The patient tolerat ed the procedure well and was discharged safely after a period of observation. Preprocedure pain: 8/10 Post procedure pain: 2/10 Procedure Note Jeramy Mackenzie MD - 04/19/2018Formattin g of this note might be different from the original. EXAMINATION: FLR GUID BX/ASP/INJ HIP -LT CLINICAL HISTORY: - OA, PAIN PATTERNS AT YPICAL LEFT HIP, TECHNIQUE: Written informed consent was obtained. A timeout procedure was performed prior to commencing the procedure. The patient was positioned supine. The left hip joint was visualized under fluoroscopy. The entry site was identified lateral to the palpated femoral artery pulse and th e area was prepped and draped using sterile technique. The site was anesthet ized with 2% Lidocaine. Under fluoroscopic guidance a 22-gauge spinal needle was then advanced into the hip joint. Intra-articular positioning confi rmed with air injection. A volume of 10 mL Bupivacaine 0.25% was drawn up and mi xed with Kenalog 40 mg, which was then injected into the joint space. The needl e was then removed and satisfactory hemostasis achieved. The patient tolerat ed the procedure well and was discharged safely after a period of observation. Preprocedure pain: 8/10 Post procedure pain: 2/10 IMPRESSION Fluoroscopic guided left intraarticular hip joint steroid injection. Patient encouraged to maintain a pain lo g. Authorizing Provider Result Christy Lau MD IMG FLUORO ORDERABLES documented in this encounter Visit Diagnoses Not on filedocumented in this encounter Care Teams Reel Fed Printer Relationship Specialty Start Date End Date Javi Izaguirre DO PCP - General 06/22/[address] [place] [address] documented as of this encounter
--- OUTSIDE RECORDS SUMMARY | 2022-04-22 01:43 | XMS_ITS | Encounter Summary ---
:1945 Author Organization [facility] Address [address] [place] [address] Care Team Providers Name Role Phone Dmitriy, Javi BURKS Primary Care Provider Encounter Details Date Type Department Care Team Description 02/17/2021 Orders Only Orthopaed[facility] at [facility], Pain in left hip Mirza Vaca MD (Primary Dx) [address] [place] [address] [phone] [place] [address] Social History Tobacco Use Types Packs/Day Years [...] filedocumented as of this encounter Results XR Pelvis and Hip [...] have questions please contact the health health and social care teacher that requested your imaging first. ? Electronically signed by: Ira Cardozo, [facility] ([phone]), at 02/18/2021 8:00 AM Narrative 02/18/2021 8:00 AM EDT EXAMINATION: XR [...] ho have questions please contact the health health and social care teacher that requested your imaging first. Electronically signed by: Ira Cardozo, [facility] ([phone]), at 02/18/2021 8:00 AM Ellis Lau MD IMG DX ORDERABLES documented in this encounter Visit Diagnoses Diagnosis Pain in left hip - Primary Pain in joint, pelvic region and thigh Pain in left hip Pain in joint, pelvic region and thigh documented in this encounter Care Teams Lcac Radar Operator/Navigator Relationship Specialty Start Date End Date Javi Izaguirre DO PCP - General 06/22/[address] [place] [address] documented as of this encounter
--- OUTSIDE RECORDS SUMMARY | 2022-04-22 01:43 | XMS_ITS | Encounter Summary ---
:1945 Author Organization [facility] [place] [address] Care Team Providers Name Role Phone Javi Izaguirre DO Primary Care Provider Reason for Referral Consultation (Routine) - Closed Specialty Diagnoses / Procedures Referred By Contact Refer red To Contact Sleep Center Diagnoses Snoring Frequent nocturnal awakening Non-restorative sleep Insomnia, unspecified type Stephanie Polk APRN [facility] Procedures PRG POLYSOM 6+ YRS SLEEP W 4+ ADDL BINA [address] [facility] [address] [place] [address] [place] [address] Referral ID Status Reason Start Date Expiration Date Visits V isits Requested Authorized [id number] Closed Test Only 10/05/2017 10/05/2018 1 1 Reason for Visit Consultation (Routine) - Closed Specialty Diagnoses / Procedures Referred By Contact Refer red To Contact Sleep Center Diagnoses SLEEP DISORDER Javi Izaguirre DO [facility] [address] [place], [place] [address] [place] [phone] Fax: Referral ID Status Reason Start Date Expiration Date Visits V isits Requested Authorized [id number] Closed Consult Only 08/09/2017 08/09/2018 1 1 Encounter Details Date Type Department Care Team Description 10/05/2017 [facility] ( [facility] STRAINER CLEANER Frequent nocturnal awakening; [address] [facility] Non-restorative sleep; [place], [place] Insomnia, unspecified type [id number] SLEEP DISORDERS [phone] [place], [place] [address] (Wo rk) Social History Tobacco [...] Sign Reading Time Taken Comments Blood Pressure 125/65 10/05/2017 12:57 PM EST Pulse 66 10/05/2017 12:57 PM EST Temperature - - Respiratory Rate 16 10/05/2017 12:57 PM EST Oxygen Saturation 97% 10/05/2017 12:57 PM EST Inhaled Oxygen Concentration - - Weight 73.9 kg (162 lb 14.7 oz) 10/05/2017 12:57 PM EST Height 165.1 cm (5' 5) 10/05/2017 12:57 PM EST Body Mass Index 27.11 10/05/2017 12:57 PM EST documented in this encounter Patient Instructions Patient InstructionsStephanie Polk, STRAINER CLEANER - 10/05/2017 1:00 PM EST Sleep Hygiene Recommendations: 1) Get up at the same time seven days out of the week. 2) Only go to bed when feeling sleepy. 3) Wind down in the evening. Some people need more time to unwind before bed than others. If you need to, allow yourself 1-2 hours to unwind before bed--take a bath, read, watch television. Never do work right up until bedtime. Always stop 1-2 hours before bed. 4) Stimulus Control: If lying in bed for 15-20 minutes (estimated because the clock is turned away so you cannot see it) and you are not asleep, get up and do something relaxing in a different room (reading a magazine article, solitaire with a deck of cards). Avoid doing work or getting on the computer. 5) Bedroom for sleep only. No watching TV or using the computer or phone in bed. Do not use electronic devices in bed (ex: iPad, iPod) 6) Turn clock away so you cannot see it in bed. 7) Exercise regularly but try to avoid exercise within 4 hours of bedtime. Morning exercise is best. 8) Avoid caffeine in the afternoon. Considering tapering down on caffeine by decreasing by one beverage with caffeine every 3 days until off. 9) Avoid smoking near bedtime 10) Avoid alcohol before bed. If you consume one alcoholic beverage allow 3 hours between that drinkand bedtime. If you consume two alcoholic beverages allow 5 hours Between those drinks and bedtime. 11) Avoid napping except for driving safety. 12) Read No More Sleepless Nights by Felice Samson PhD. documented in this encounter Progress Notes Stephanie Polk APRN - 10/05/2017 1:00 PM EST Sleep Medicine Consultation Note HPI: Sofía Mcdonald is a 71 y.o. female seen at the request of Javi Izaguirre DO, for advice regarding a sleep disorder. HPI continues below. Sleep Pattern: Bed/Recliner/Wedge: bed, flat, mathis sized, with # Pillows: if reading, 3 under head; if sleeping, one Bedtime routine: 8-9p, reads for awhile, gets up to void before she turns the light off but when shecomes back to bed, she has trouble getting to sleep and it can be anywhere from 20 mins to being up the whole night; this has been a problem since breast cancer treatment in [id number]; she also had depression after 2016 election, not being able to ski with OA issues, borderline hypothyroidism--she wasplaced on synthoid, feels mildly better; used to be a morning person, but becoming night person; shewould like to have a little more energy during the day Position: usually right side, occasionally back Awakenings: to reposition, 0-1x to void, is snoring Duration: quicker than sleep onset Wake time: 8a to [employer] radio, will stay in bed until 8:30a listening, will then rise; if not good sleep, will sleep until 9:30a; sometimes wakes with night sweats for the past 8-9 months which is more frequently now yet still once per week on average Sleep duration: averages 7 hours per night, doesn't feel like enough Respiratory: Snoring: more frequent when on her back over past several, didn't snore before then Observed Apneas: no Mouth Breathing: Dry Mouth: has regularly, uses Biotene and also room humidifier Nocturnal Gasping: no Nasal Obstruction: Dr. Yuen noticed mild deviated septum, not needing correction, small passage on L side Patient has a chronic cough, called Arnold's nerve cough, on/off since high school. She uses [facility] [employer] for relief. May wake her in night. Daytime Symptoms: Patient-reported scores: [facility] 10/03/2017 [place] [facility] 5 Insomnia Severity Index 20 (Moderately severe insomnia) VR12 - Physical Component Summary - VR12 - Mental Component Summary - Upon Awakening: unrefreshed Naps: none Involuntary Dozing: yes, on bad days when more sleepy Cognitive Symptoms: some days better than others Driving: drives, occasional zoning out but not really drowsiness Close calls related to sleepiness: no Accidents related to sleepiness: no Other Associated Sleep Symptoms: Parasomnias: Sleep Walking: no Dream Enactment: no Bruxism: no Motor: RLS: no PLMS: no Narcolepsy: Hallucinations: no Paralysis: no Cataplexy: n/a Family History: Family history of sleep disorders: sister snores ROS: CON: weight change: has gained up to 10lb but over long periods of time ENT: Environmental allergies: yes, Spring, not bad in [place] PUL: LATHAM: just going up to steps lately, it seems, since R hip surgery CV: chest pain: no Palpitations: no LE edema: no GI: GERD: on occasion, better on omeprazole : Nocturia: no MSK: Pain: on occasion with OA, feet hurt at night sometimes, also has neuropathy in feet (tried gabapentin didn't work, Aspercreme works) NEURO: sleep related headaches: no PSY: Depressed Mood/Anxiety: yes, depressed after last election but feels mood is better with time and on Zoloft Past Surgical History: Past Surgical History: Procedure Laterality Date ??? ARTHROPLASTY B thumb '00 ??? BREAST BIOPSY Left 2009 ??? BREAST CYST EXCISION Right 1987 BENIGN RIGHT BREAST BIOSPY ??? BREAST LUMPECTOMY 1988 R ??? BREAST LUMPECTOMY Left 2010 L BREAST CANCER w/rad tx ??? CARPAL TUNNEL RELEASE L ??? CREATED BY INTERFACE Carpal tunnel left Procedure Date: 2009 ??? CREATED BY INTERFACE Entered not Verified Procedure Date: 07/12/2010 ??? CREATED BY INTERFACE Left total knee replacement Procedure Date: 2006 ??? CREATED BY INTERFACE Right total knee replacement Procedure Date: 1997 ??? ENDOMETRIAL BIOPSY dysfunctional uterine bleeding ??? KNEE SURGERY R lat meniscectomy ', R knee arthroscopy '92 & '97, R knee osteotomy ', R knee staple removal ', R TKR '97, L TKR '06. ??? PRO COLONOSCOPY, REMV LESN, SNARE 12/12/2013 COLONOSCOPY, POLYPECTOMY, REMOVAL LESION BY SNARE performed by Fernanda Freitas MD at [facility] ENDOSCOPY ??? PRO REVISE KNEE JOINT REPLACE, ALL PARTS 12/21/2012 @TOTAL KNEE REVISION ARTHROPLASTY, COMPLETE performed by Ellis Lau MD at [facility] MAIN OR ??? TUBAL LIGATION ' ??? WRIST FRACTURE SURGERY 07/09 R Past Medical History: Past Medical History: Diagnosis Date ??? Breast cancer ??? Colon polyps ??? Diverticulosis ??? H/O multiple sclerosis around 55yo ??? Peptic ulcer disease ??? Right knee pain 06/04/2012 Problem List: Patient Active Problem List Diagnosis Code ??? [...] M16.11 ??? 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 cholecalciferol, Vitamin D3, 1,000 unit Capsule Take 1,000 Units by mouth daily. ??? fluticasone (FLONASE) 50 mcg/actuation [place], Suspension 1 spray daily. ??? levothyroxine (SYNTHROID) 50 mcg Tablet Take 50 mcg by mouth daily. ??? multivitamin (THERAGRAN) Tablet Take 1 tablet by mouth daily. ??? sertraline (ZOLOFT) 25 mg Tablet Take 75 mg by mouth daily. ??? lutein 20 mg Tablet Take 20 mg by mouth daily. ??? RESTASIS 0.05 % Dropperette Place 1 drop into both eyes 2 times daily. ??? LORazepam (ATIVAN) 1 mg Tablet Take 1 mg by mouth daily as needed. ??? mometasone (ELOCON) 0.1 % Cream Apply topically daily as needed. ??? amLODIPine (NORVASC) 5 [...] mg of acetaminophen in 24 hours. Notable Medications: Lorazepam 1mg PRN--may take for sleep onset, may only take a half, sometimes it helps, sometimes not Social History: Living situation: lives with Employment: retired Alcohol: few glasses wine at night; Smoking: no Caffeine: yes, 1 cup tea per day; a Diet Coke daily, a small 6oz Other drugs: no PE: BP 125/65 Pulse 66 Resp 16 Ht 165.1 cm (5' 5) Wt 73.9 kg (162 lb 14.7 oz) SpO2 97% BMI 27.11 kg/m2 General: 71 y.o.female, NAD Eyes: PERRL, conjunctiva clear ENT: oropharynx MP: 4 Crowded: low soft palate Dentition: good Mandibular structure and position: normal occlusion NECK: Submental fat present: mild supple, no LAD, no thyroid enlargement Circumference: 14 inches LUNGS: respirations even and unlabored; CTA, no adventitious lung sounds; intermittent coughing during visit CV: RRR, no m/g/r ABD: BS+, soft, non-tender NEURO: gait and station normal, no tremor SKIN: warm and dry PSYCH: Alert and appropriate: yes Oriented to person, place and time: intact Affect: normal Judgement and insight: intact Assessment: Sofía Mcdonald is a 71 y.o. female with a history of snoring, insomnia, night sweats, non-restorativesleep. Patient has gained 10lbs over the past few years and is trying to lose weight. She also reports heartburn mostly controlled on daily omeprazole, pain that interferes with sleep, and mood changessince the 2016 election and changes such as OA pain. Ms. Mcdonald reports that her past history should have MS for multiple sclerosis, not MS for history ofcongenital mitral stenosis. She has not been seen for MS for years and reports it doesn't appear active. This past history was changed today in [facility]. The patient's physical exam is signficant for BMI of 27, Mallampati score of IV, low soft palate. Significant comorbidities include Arnold's nerve cough syndrome, GERD, anxiety, . Ms. Mcdonald's history and symptoms suggest obstructive sleep apnea with a history of insomnia. Regarding sleep apnea, diagnosis of obstructive sleep apnea was reviewed in detail with the patient at this time. Potential consequences of untreated obstructive sleep apnea reviewed. Treatment options reviewed in detail. Questions regarding diagnosis and management answered at this time. Patient education included how caffeine, smoking, and alcohol intake may impact sleep. Regarding insomnia, provided sleephygien recommendations in AVS today for her to review, trying fixed wake time, going to bed when sleepy and future consideration of CBTi. Patient is leaving the area October 18 and will return to the [facility] in November 2017. Recommended overnight diagnostic PSG and that she have sleep study set up for when she returns. All recommendations below. The patient confirms that study results can be called to [phone] (M) and a detailed message left if they are not available for call. Recommendations: --Overnight diagnostic split PSG --Consider CBT for insomnia in future --Printed handout given to patient on Sleep Apnea Facts & Figures --Role of weight loss reviewed --Safe driving precautions reviewed with the patient. The patient indicates understanding of these issues and agrees with the plan. Stephanie Polk APRN Cc: Javi Izaguirre DO documented in this encounter Plan of Treatment Scheduled Referrals Name Type Priority Associated Diagnoses Order S chedule Referral to Sleep Outpatient Referral Routine Snoring Ordered: Disorders Center Frequent nocturnal 10/05 awakening Non-restorative sleep Insomnia, unspecified type documented as of this encounter Visit Diagnoses Diagnosis Snoring - Primary Other dyspnea and respiratory abnormalit y Frequent nocturnal awakening Other sleep disturbances Non-restorative sleep Other sleep disturbances Insomnia, unspecified type documented in this encounter Care Teams Business Analytics Faculty Member Relationship Specialty Start Date End Date Javi Izaguirre DO PCP - General 06/22/[address] [place] [address] [address] [place] [address] documented as of this encounter
--- OUTSIDE RECORDS SUMMARY | 2022-04-22 01:43 | XMS_ITS | Encounter Summary ---
:1945 Author Organization [facility] [place] [address] Care Team Providers Name Role Phone Javi Izaguirre DO Primary Care Provider Encounter Details Date Type Department Care Team Description 01/27/2021 Ancillary Procedure Radiology XRay at [facility] ot pain, bilateral the Multi-Specialty B, D[facility] at [facility] 10 [facility] 10 [facility] [place] [address] [phone] Social History Tobacco Use Types Packs/Day Years [...] Priority Date/Time Associated Diagnosis Comme nts XR FOOT MIN 3 VIEWS Routine 01/27/2021 11:28 AM Foot pain, libra ateral Results for this BILAT EDT procedure are i n the results section. documented in this encounter Results XR Foot Min 3 [...] who have questions please contact the health geriatric care manager that requested your imaging first. ? Electronically signed by: Breanne Chavez MD, [facility] ([phone]), at 01/27/2021 2:10 PM Narrative 01/27/2021 2:10 PM EDT EXAMINATION: XR [...] ho have questions please contact the health geriatric care manager that requested your imaging first. Electronically signed by: Breanne Chavez MD, [facility] ([phone]), at 01/27/2021 2:10 PM [facility] DPM IMG DX ORDERABLES documented in this encounter Visit Diagnoses Diagnosis Foot pain, bilateral Pain in limb documented in this encounter Care Teams Wholesale Buyer Relationship Specialty Start Date End Date Javi Izaguirre DO PCP - General 06/22/[address] [facility] [[email or web address] [address] [place] [address] documented as of this encounter
--- OUTSIDE RECORDS SUMMARY | 2022-04-22 01:43 | XMS_ITS | Encounter Summary ---
:1945 Author Organization [facility] Address [address] [place] [address] Care Team Providers Name Role Phone Javi Izaguirre DO Primary Care Provider Reason for Visit Consultation (Routine) - Closed Specialty Diagnoses / Procedures Referred By Contact Refer red To Contact Orthopaedics Diagnoses left hip pain Javi Izaguirre DO Tomek, Ivan M, MD [address] [place], [place] [address] [place] [address] Phone: Fax: Referral ID Status Reason Start Date Expiration Date Visits V isits Requested Authorized [id number] Closed Evaluate and 01/07/2020 01/06/2021 1 1 Treat Encounter Details Date Type Department Care Team Description 02/19/2020 TH Visit Orthopaedics at [facility], Pain in left hip (TeleHealth) Mirza Vaca MD (Primary Dx) [address] [place] [address] [phone] [place] [address] Social History Tobacco Use Types Packs/Day Years Used Date Former Smoker Quit: 12/12/18 84 Smokeless Tobacco: Never Used Comments: remote hx of smoking. Alcohol Use Standard Drinks/Week Comments Yes 7 (1 standard drink = 0.6 oz pure alcoho l) Sex Assigned at Date Recorded Female 03/31/2021 3:33 PM EDT documented as of this encounter Progress Notes Ellis Lau MD - 02/19/2020 11:00 AM EDT Telehealth Visit: Patient consented to telehealth visit in lieu of office visit, due to public health emergency. Patient was informed ahead of time that this telehealth visit will be conducted similar to an office visit and may be billed similarly to an in-clinic office visit. Video Chief Complaint: Left hip pain PCP: DO Traci Carrington Comp: No HPI: Sofía Mcdonald is a 74 y.o. female presents to the orthopaedic clinic for follow up for left hip pain. She was last seen in clinic for this complaint on 08/08/2018 with [facility] Lau MD. The pertinent information regarding the patient's hip complaint is documented in the patient's electronic medical record. The patient reports her hip complaint has worsened. She reports comes and goes, more so lately. Imaging obtained today No Xray 01/08/2020 Review of Systems: Constitutional: Denies fever, chills, fatigue Cardiovascular: Denies chest pain Respiratory: Denies shortness of breath Gastrointestinal: Denies nausea, vomiting, diarrhea, constipation or abdominal pain Neurovascular: Denies numbness or tingling Musculoskeletal: Admits left hip pain Psychiatric: Mood and affect appropriate Radiating pain: none Allergies Allergen Reactions ??? Metoclopramide Hcl Other (See Comments) Disorientation, flushing, fatigue ??? Prochlorperazine Maleate Other (See Comments) agitation ??? Compazine [Prochlorperazine Edisylate] Other (See Comments) Disorientation, fatigue Current Outpatient Medications on File Prior to Visit Medication Sig Dispense Refill ??? [id number] ORAL Take by mouth. ??? cholecalciferol, Vitamin D3, 1,000 unit Capsule Take 1,000 Units by mouth daily. ??? fluticasone (FLONASE) 50 mcg/actuation [place], Suspension 1 spray daily. ??? levothyroxine (SYNTHROID) [...] 4,000 mg of acetaminophen in 24 hours. No current facility-administered medications on file prior to visit. Patient Active Problem List Diagnosis Code ??? Breast cancer C50.919 ??? S/P Left TKA- 12/12/2005 ([facility]) Z96.659 ??? GERD (gastroesophageal reflux disease) K21.9 ??? Anxiety F41.9 ??? Vertigo R42 ??? Right knee pain M25.561 ??? 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 S/P Right TKA revision- poly exchange, synovectomy, lateral facet cheilectomy- 12/21/2012 ([facility])Z96.659 ??? Osteoarthritis of right hip with [...] ??? Hearing loss H91.90 ??? Hemorrhoids K64.9 Physical Exam: Due to COVID-19 a physical exam was not performed today. Assessment/Plan: I am talking to Sofía today via tele-video link, as part of her telehealth home visit. In summary she is a 74-year-old female whose right hip by previously replaced, the right side is doing very well and she has no problems. In about October of this year she started having pain in the left buttock. Only very rarely does she have left groin pain, tells me that she was feeling somewhat depressed because of the COVID quarantine, she and her were not able to travel to the [facility] where they usually spend the spring. Gradually, the discomfort got worse to the point wherecertain activities such as getting out of a chair and sleeping at night were uncomfortable. She has been taking ibuprofen and Tylenol arthritis. Tells me she has normal kidney function. She is at a point where the pain is sufficiently debilitating that certain movements such as bending forward in particular are uncomfortable. I reviewed radiographs that were obtained in December of this year and compared them to films from a year and a half ago. Even though she has grade 3 arthritic changes, those x-rays show no significant progression over that time. I told her that the lack of progression does not necessarily mean that the arthritis is not getting worse, I reminded her that radiographs were a somewhat rough means of assessing joint health when it comes to osteoarthritis and other degenerative conditions. She points out that she notes aches and pains elsewhere in her body, she has had some hand and finger pain that has also worsened. At this time we have decided to start with once daily meloxicam 15 mg, she understands that she could call us if she has any problems with this medicine, understands that she should take it on a daily basis, not skip any doses, and to take it with food. I will talk to her again in 6 weeks and we will see how she does. I did point out to her that buttock pain can sometimes be a result of hip OA, however other causative factors may also need to be considered including the lumbar spine and its associated bony and soft tissue structures. documented in this encounter Plan of Treatment Not on filedocumented as of this encounter Visit Diagnoses Diagnosis Pain in left hip - Primary Pain in joint, pelvic region and thigh documented in this encounter Care Teams Lead Web Application Developer Relationship Specialty Start Date End Date Javi Izaguirre DO PCP - General 06/22/[address] [place] [address] documented as of this encounter
--- OUTSIDE RECORDS SUMMARY | 2022-04-22 01:43 | XMS_ITS | Encounter Summary ---
:1945 Author Organization [facility] [place] [address] Care Team Providers Name Role Phone Javi Izaguirre DO Primary Care Provider Encounter Details Date Type Department Care Team Description 03/18/2020 Telephone Gastroenterology at [facility] A[place]sha [place], [place] [address] Social History Tobacco Use Types Packs/Day [...] on filedocumented in this encounter Care Teams Folder Gluer Operator Relationship Specialty Start Date End Date Javi Izaguirre DO PCP - General 06/22/[address] [place] [address] documented as of this encounter
--- OUTSIDE RECORDS SUMMARY | 2022-04-22 01:43 | XMS_ITS | Encounter Summary ---
:1945 Author Organization [facility] [address] Care Team Providers Name Role Phone Javi Izaguirre Primary Care Provider Encounter Details Date Type Department Care Team Description 01/08/2020 Ancillary Procedure Radiology at [facility] Ellis Lau MD [address] [place] [address] [phone] [place], [place] [address] Social History Tobacco Use Types [...] Name Priority Date/Time Associated Diagnosis Comme nts FILM LIBRARY Routine 01/08/2020 12:00 AM Results for this STORAGE ONLY DX HIP EDT procedur e are in the results section. documented in this encounter Results Film Library- Storage Only DX Hip (01/08/2020 12:00 AM EDT) Specimen (Source) Anatomical Location Collection Method / Collectio n Time Received Time / Laterality Volume Narrative [facility] - 01/10/2020 6:56 AM EDT This exam is auto-finalizing. It's purpo se is for storage only. Ellis Lau MD IMG FILM LIBRARY ORDERABLES Performing Organization Address City/State/ZIP Code Phon e Number RAD [place], [place] documented in this encounter Visit Diagnoses Not on filedocumented in this encounter Care Teams Make Up Man Relationship Specialty Start Date End Date Javi Izaguirre DO PCP - General 06/22/[address] [place] [address] documented as of this encounter
--- OUTSIDE RECORDS SUMMARY | 2022-04-22 01:43 | XMS_ITS | Encounter Summary ---
:1945 Author Organization [facility] [place] [address] Care Team Providers Name Role Phone Dmitriy Javi BURKS Primary Care Provider Encounter Details Date Type Department Care Team Description 07/06/2016 Interpretation Only Radiology at [facility] Ce nter None [address] [place] [address] Social History Tobacco Use Types Packs/Day [...] nts XR KNEE 4 OR MORE Routine 07/06/2016 2:31 PM Resu lts for this VIEWS BILAT EST procedure are i n the results section. documented in this encounter Results XR Knee 4 or more views Bilat (07/06/2016 2:31 PM EST) Anatomical Region Laterality Modality Knee Bilateral Radiographic Imaging Specimen (Source) Anatomical Collection Method Collection Time Re ceived Time Location / / Volume Laterality 07/06/2016 2:31 PM EST Narrative 07/06/2016 2:31 PM EST APD Historical Result Principal Card Reader: ??AMAN ??NEMESIO BILATERAL KNEES - THREE VIEWS: INDICATION: ??Status post bilateral tota l knee arthroplasties. COMPARISON: ??None. FINDINGS: Bilateral weightbearing AP, right and le ft lateral and right and left sunrise views are obtained. RIGHT: ??There is a total knee replaceme nt with lucency concerning for osteolysis surrounding both the medial and lateral aspects of t he femoral component and the medial aspect of the tibial plate. The tibial plate is held in place not on ly by its stem, but also with 4 threaded screws one of which results in an arthrodesis with fib ular head. Left total knee arthroplasty with cement ed components that are aligned on orthogonal views. The right and left patellar buttons are normally positioned. There is no significant joint effusion. ??There is an 18 mm ossific density as well as 2, smaller, 5 mm ossific densities posterio rly at the joint line on the right. There is a rectangular hypodensity withi n the space between the articular surface of the right tibial and femoral compartments presumab ly a type of spacer. IMPRESSION: Concern for loosening at the right prosthesis as above. Left total knee replacement in good alignment without evidence of c omplication. Aman Herr, /rr [id number] Procedure Note Unknown - 01/28/2019Formatting of this n ote might be different from the original. APD Historical Result Principal Card Reader: AMAN HERR BILATERAL KNEES - THREE VIEWS: INDICATION: Status post bilateral total knee arthroplasties. COMPARISON: None. FINDINGS: Bilateral weightbearing AP, right and le ft lateral and right and left sunrise views are obtained. RIGHT: There is a total knee replacement with lucency concerning for osteolysis surrounding both the medial and lateral aspects of t he femoral component and the medial aspect of the tibial plate. The tibial plate is held in place not on ly by its stem, but also with 4 threaded screws one of which results in an arthrodesis with fib ular head. Left total knee arthroplasty with cement ed components that are aligned on orthogonal views. The right and left patellar buttons are normally positioned. There is no significant joint effusion. There is an 18 mm ossific density as well as 2, smaller, 5 mm ossific densities posterio rly at the joint line on the right. There is a rectangular hypodensity withi n the space between the articular surface of the right tibial and femoral compartments presumab ly a type of spacer. IMPRESSION: Concern for loosening at the right prosthesis as above. Left total knee replacement in good alignment without evidence of c omplication. Aman Herr DO NICKI/mica [id number] Unknown IMG DX ORDERABLES documented in this encounter Visit Diagnoses Not on filedocumented in this encounter Care Teams Follow Up Manager Relationship Specialty Start Date End Date Javi Izaguirre DO PCP - General 06/22/[address] [place] [address] documented as of this encounter
--- OUTSIDE RECORDS SUMMARY | 2022-04-22 01:43 | XMS_ITS | Encounter Summary ---
:1945 Author Organization [facility] Address [address] [place] [address] Care Team Providers Name Role Phone Javi Izaguirre DO Primary Care Provider Encounter Details Date Type Department Care Team Description 07/06/2016 Hospital Encounter Mammography at [facility] Javi Izaguirre, Encounter for [facility] DO screening mammogram Drive [address] [place] [address] for breast cancer [place] [place] [address] [phone] [place], [place] [phone] [address] Social History Tobacco Use Types Packs/Day Years [...] 4,000 mg of acetaminophen in [address] RESTASIS 0.05 % Place 1 drop into [...] Diagnosis Comme nts MAMMO SCREENING CAD Routine 07/06/2016 11:22 AM Encounter for Results for this AND DARION BILATERAL EST screening mammogram pr ocedure are in for breast cancer the result s section. documented in this encounter Results Mammo Screen CAD and Darion Bilat (Generic) (07/06/2016 11:22 AM EST) Anatomical Region Laterality Modality Breast Bilateral Mammography Specimen (Source) Anatomical Location Collection Method / Collectio n Time Received Time / Laterality Volume Narrative 07/06/2016 12:01 PM EST BILATERAL MAMMOGRAPHY REASON FOR EXAM: 70-year-old female, his tory of left breast cancer and lumpectomy, 2010. TECHNIQUE: CC and MLO views were obtaine d of each breast using standard 2-D mammography as well as 3-D tomosynthesis . Computer aided detection was used. Comparison: This is compared with prior images. FINDINGS: There are scattered areas of f ibroglandular density. There are no suspicious microcalcifications, masses, or areas of distortion. The pattern is stable. Stable left postsurgical change. CONCLUSION: No mammographic evidence of malignancy. RECOMMENDATION: Routine screening. A result letter has been sent to this pa tient by the [facility]. BIRADS CATEGORY 2: Benign findings * ??The [employer] an d The Society [...] cancer documented in this encounter Care Teams Client Executive Relationship Specialty Start Date End Date Javi Izaguirre DO PCP - General 06/22/[address] [place] [address] documented as of this encounter
--- OUTSIDE RECORDS SUMMARY | 2022-04-22 01:43 | XMS_ITS | Encounter Summary ---
:1945 Author Organization [facility] [address] Care Team Providers Name Role Phone Javi Izaguirre DO Primary Care Provider Reason for Visit Reason Comments Obstructive Sleep Apnea Encounter Details Date Type Department Care Team Description 03/22/2018 [facility] QUALITY ASSURANCE TECH ROXY on CPAP [facility] [address] [place] [address] Social History Tobacco Use Types Packs/Day [...] Sign Reading Time Taken Comments Blood Pressure 108/78 03/22/2018 11:06 AM EDT Pulse 61 03/22/2018 11:06 AM EDT Temperature - - Respiratory Rate - - Oxygen Saturation 97% 03/22/2018 11:06 AM EDT Inhaled Oxygen Concentration - - Weight 74.4 kg (164 lb) 03/22/2018 11:06 AM EDT Height 165.1 cm (5' 5) 03/22/2018 11:06 AM EDT Body Mass Index 27.29 03/22/2018 11:06 AM EDT documented in this encounter Progress Notes Milana Reece, QUALITY ASSURANCE TECH - 03/22/2018 11:15 AM EDT Ms. Sofía Mcdonald is a 72 y.o. female seen for follow-up of obstructive sleep apnea. Patient presents today for follow-up in PAP clinic: ?? Excerpt by Dr. Mary Sleep Study: 01/04/18 Obstructive sleep apnea of a severe degree (AHI of 43) noted. [facility] AHI of 10 which includes only apneas [...] REM was observed supine but was not observednon-supine. Weight: 160.5# Treatment: CPAP Pressure: 5-15 cm Interface: dream wear nasal Fit: likes it Chin Strap: no HCC: KMP Snoring: Dry Mouth/Throat: always has had dry mouth-uses a toothpaste to help Mouth Breathing: doesn't think so Patient perceived outcome: I'm feeling much better, more energy not as depressed, I interact more and getting things done. Symptom Benefit: [place]: 5 Sleep quality: is significantly better Daytime Symptoms: significant improvement Involuntary Dozing: not anymore, Napping: depends on the day, may once in awhile Driving: Sleepiness or drowsiness not ROS: ?? ENT: Nasal Obstruction:??has seasonal hay fever Constitutional:??Study weight: 160.5# Current weight: 164# Compliance Card Data: Date Range: 02/05-03/21/18 Settin-15 cm 90% 7.3/average 6 Residual AHI: 3.6 (OA 0.3/HI 2.8) Vibratory Snore Index: 0.9 % Night in Large Leak: 0.2% Average usage all days-Hours: 8 hr # of Days of usage: 44/45 % Days used > 4 hours 98% Total % Days used 98% Physical Exam: Respirations: Even and not labored at rest DERM: Skin irritation: none Vitals: 03/22/18 1106 BP: 108/78 BP Location ([facility]): Right arm Patient Position: Sitting BP Cuff Sizes: Adult (25-34 cm) Pulse: 61 SpO2: 97% Weight: 74.4 kg (164 lb) Height: 165.1 cm (5' 5) Time spent face to face: 45 Min. Assessment: Ms. Sofía Mcdonald is a 72 y.o. female seen for follow-up of obstructive sleep apnea. Patient presents today for follow-up in PAP clinic to assess adherence. Ms Mcdonald is using CPAP routinely with excellent adherence. The data download demonstrates the 90% pressure is 7.3 cm. The AHI and Leak appear well controlled. Ms Mcdonald reports significant benefit from CPAP with her rest and energy. She denies anyproblems with sleepiness. No pressure change at this time. Replace supplies routinely. RTC in one year/PRN. Recomendations: 1) CPAP 5-15 cm with ramp and Heated Humidity 2) Follow-up: RTC one year with KE+. She may want to continue treatment at a sleep clinic closer to her home 3) Driving safety discussed, recommend patient not drive if drowsy, if drowsy while driving to shoe puller and take a nap. 4) Patient to replace supplies routinely and understands mask cushions can be replaced monthly. The patient indicates understanding of these issues and agrees with the plan. The case was discussed with Dr. Sanchez who saw the patient and participated in the formulation and decision making. Betzaida Sanchez MD - 03/22/2018 11:15 AM EDT Sleep Medicine Follow-Up Note HPI: Sofía Mcdonald is a 72 y.o. female seen for follow-up of obstructive sleep apnea. The patient was diagnosed with ROXY (AHI [...] with more energy. Denies sleepiness with driving. Patient-reported last 4 scores: [facility] 04/29/2013 12/03/2013 10/03/2017 03/21/2018 [place] [facility] - - 5 5 Insomnia Severity Index - - 20 (Moderately severe insomnia) 7 (No clinically significant insomnia) VR12 - Physical Component Summary 50.07 39.67 - - VR12 - Mental Component Summary 62.97 63.15 - - ROS: CON: weight change: generally stable since last visit ENT: nasal obstruction: mild at times with allergies although generally not a problem : nocturia: once around 6am PSYCH: depression/anxiety symptoms: depression improved Past Medical History: Patient Active Problem List Diagnosis Code ??? [...] ??? 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 cholecalciferol, Vitamin D3, 1,000 unit Capsule Take 1,000 Units by mouth daily. ??? fluticasone (FLONASE) 50 mcg/actuation [place], Suspension 1 spray daily. ??? levothyroxine (SYNTHROID) 50 mcg Tablet Take 50 mcg by mouth daily. ??? multivitamin (THERAGRAN) Tablet Take 1 tablet by mouth daily. ??? omeprazole (PRILOSEC) 10 mg Capsule, Delayed Release(E.C.) Take 10 mg by mouth daily. ??? lutein 20 [...] Take 5 mg by mouth daily. ??? clonazePAM (KLONOPIN) 1 mg Tablet Take 1 mg by mouth 2 times daily as needed for Anxiety. Reported on 08/15/2016 ??? amoxicillin (AMOXIL) 500 mg capsule Take 4 capsules 1 hour prior to dental procedures or cleanings. 20 capsule 0 ??? ibuprofen (ADVIL;MOTRIN) 200 mg tablet Take 400 mg by mouth as needed. Reported on 08/15/2016 ??? acetaminophen (TYLENOL) 500 mg tablet Take 2 tablets by mouth every 8 hours. Last day for scheduled dosing = December 31. Then may take every 8 hours as needed. Do not take more than 4,000 mg of acetaminophen in 24 hours. PE: BP 108/78 (BP Location (NBP): Right arm, Patient Position: Sitting, BP Cuff Sizes: Adult (25-34 cm)) Pulse 61 Ht 165.1 cm (5' 5) Wt 74.4 kg (164 lb) SpO2 97% BMI 27.29 kg/m2 General: pleasant 72 y.o. female, no distress PAP compliance card reviewed and documented in RT portion of the note Assessment: Sofía Mcdonald is a 72 y.o. female seen in follow-up for obstructive sleep apnea. She has excellent adherence and tolerance to CPAP with good symptomatic benefit. She reports significantly improved nocturnal sleep qulaity and daytime functioning. Download confirms good control of obstructive sleep apnea. Overall, Ms. Mcdonald is quite pleased with the results of the CPAP. Recommendations: 1. Cont CPAP at current pressure range 2. F/U 1 yr; call sooner for problems/questions Patient voices understanding and acceptance of this advice and will call back if any further questions or concerns. documented in this encounter Plan of Treatment Not on filedocumented as of this encounter Visit Diagnoses Diagnosis ROXY on CPAP Obstructive sleep apnea (adult) (pediatr ic) documented in this encounter Care Teams Management Professional Relationship Specialty Start Date End Date Javi Izaguirre DO PCP - General 06/22/[address] [place] [address] documented as of this encounter
--- OUTSIDE RECORDS SUMMARY | 2022-04-22 01:43 | XMS_ITS | Encounter Summary ---
:1945 Author Organization [facility] [place] [address] Care Team Providers Name Role Phone Dmitriy, Javi BURKS Primary Care Provider Encounter Details Date Type Department Care Team Description 01/11/2019 Telephone Gastroenterology at [facility] [place] [address] Social History Tobacco Use Types Packs/Day Years Used Date Former Smoker Quit: 12/12/18 84 Smokeless Tobacco: Never Used Comments: remote hx of smoking. Alcohol Use Standard Drinks/Week Comments Yes 7 (1 standard drink = 0.6 oz pure alcoho l) Sex Assigned at Date Recorded Female 03/31/2021 3:33 PM EDT documented as of this encounter Miscellaneous Notes Telephone Encounter - Marietta Celaya - 01/11/2019 2:17 PM EDT Sofía Mcdonlad [id number] Diagnosis: 5 yr surv from 12/12/2013 1. Have you ever had a colonoscopy before? [x] YES [] NO If Yes, Date of Last [place]:12/12/2013 If yes, did you have any problems with the procedure? [] YES [x] NO Explain: What type of sedation was used: IV sedation 2. Do you take any Blood Thinners? [] YES [x] NO If Yes, type: 3. Do you have a Pacemaker or Defibrillator device? [] YES [x] NO If Yes send [employer] message to [employer] DEVICE CHECK 4. Are you a diabetic? [] YES [x] NO If yes, controlled by meds or diet? 5. Do you have any Allergies to Eggs, Latex or Medications? [x] YES [] NO If Yes, what:_see E-DH 6. Do you take any Oral Iron Supplements (Including multi vitamins)? [x] YES [] NO 7. Do you have a history of three or more abdominal surgeries? [] YES [x] NO 8. Have you had a problem with sedation or anesthesia? [] YES [x] NO 9. Do you have a c-pap machine or oxygen tank? [x] C-PAP [] Oxygen [] NO 10. Do you take prescription narcotic pain medications? [] YES [x] NO 11. You must have a responsible republican stay at the facility during your procedure and drive you home? [x] YES 12. Is there any other information you would like to give us to aid in scheduling? Height: 5'5 Weight: 159 BMI: 26.5 Age:73 y.o. documented in this encounter Plan of Treatment Not on filedocumented as of this encounter Visit Diagnoses Not on filedocumented in this encounter Care Teams Electrical Design Engineer Relationship Specialty Start Date End Date Javi Izaguirre DO PCP - General 06/22/[address] [place] [address] documented as of this encounter
--- OUTSIDE RECORDS SUMMARY | 2022-04-22 01:44 | XMS_ITS | Encounter Summary ---
:1945 Author Organization [facility] [place] [address] Care Team Providers Name Role Phone Dmitriy, Javi BURKS Primary Care Provider Reason for Visit Reason Onset Date Comments Other 12/28/2012 Atul Encounter Details Date Type Department Care Team Description 12/28/2012 Telephone [place] [facility] [place] Radha Sandoval, RN Other ([place]) [place] [address] Social History Tobacco Use Types Packs/Day Years Used Date Former Smoker Smokeless Tobacco: Never Used Alcohol Use Standard Drinks/Week Comments Yes 21 (1 standard drink = 0.6 oz pure alcoh ol) Sex Assigned at Date Recorded Female 03/31/2021 3:33 PM EDT documented as of this encounter Miscellaneous Notes Telephone Encounter - Radha Sandoval RN - 12/28/2012 2:44 PM EDT s/p right knee synovectomy and poly exchange for wear. Sid 12/21/12 Sofía Mcdonald called reporting that she was discharged with instructions stating that she would not have atul to be removed that she had internal sutures that would dissolve. Sofía states she has atul in place and questions who will remove them. Called [facility]: [facility] PHONE: [phone] FAX: [phone] Spoke with Cele Green RN, gave order to have atul removed 14 days post-op. documented in this encounter Plan of Treatment Not on filedocumented as of this encounter Visit Diagnoses Not on filedocumented in this encounter Care Teams Senior Analytic Consultant Relationship Specialty Start Date End Date Javi Izaguirre DO PCP - General 06/22/[address] [place] [address] documented as of this encounter
--- OUTSIDE RECORDS SUMMARY | 2022-04-22 01:44 | XMS_ITS | Encounter Summary ---
:1945 Author Organization [facility] Address [place] [id number] Care Team Providers Name Role Phone Wolf Izaguirre Primary Care Provider Encounter Details Date Type Department Care Team Description 12/21/2012 Surgery Main Operating Room Rae Ortiz MD @TOTAL KNEE REVISION [facility] [address], [facility] (WRU [address]) [place] [address] [place] [address] [phone] Social History Tobacco Use Types Packs/Day Years Used Date Former Smoker Smokeless Tobacco: Never Used Alcohol Use Standard Drinks/Week Comments Yes 21 (1 standard drink = 0.6 oz pure alcoh ol) Sex Assigned at Date Recorded Female 03/31/2021 3:33 PM EDT documented as of this encounter Last Filed Vital Signs Vital Sign Reading Time Taken Comments Blood Pressure 126/69 12/22/2012 9:30 AM EDT Pulse 58 12/22/2012 9:30 AM EDT Temperature 36.5 ??C (97.7 ??F) 12/22/2012 9:30 AM EDT Respiratory Rate 16 12/22/2012 9:30 AM EDT Oxygen Saturation 98% 12/22/2012 9:30 AM EDT Inhaled Oxygen Concentration - - Weight 69.4 kg (153 lb) 12/21/2012 1:55 PM EDT Height 165.1 cm (5' 5) 12/21/2012 1:55 PM EDT Body Mass Index 25.46 12/21/2012 1:55 PM EDT documented in this encounter Discharge Instructions Discharge InstructionsSofía Anderson, CONTINUOUS IMPROVEMENT COACH - 12/22/2012 12:43 PM EDT Activity: 1. You can weight bearing as tolerated on your Right leg remembering to use a walker or crutches at all times for balance and protection. 2. Flexion AND extension are important to work on at home. You should NOT place a pillow under your right knee. To help with extension you can place a pillow under your heel or lower leg or placed lengthwise along the leg. Again DO NOT place a pillow under the operated knee for comfort. 3. You should wear the GEORGIANA hose to knee bilaterally until you are seen in followup. Remove these at least once per day to inspect your skin. Coumadin flow sheet: Date Notes INR Coumadin dose (mg) 12/21 day of operation 1.0 5 12/22 POD 1 1.0 5 mg due at 5 pm Anti-coagulation follow up: 1. You should take 5 mg (one of the 5mg pills) of Coumadin today, December 22 at 5 pm. Take this medication at the same time each day - usually 5pm. If the [facility] is unable to check your INR on December 23, take Coumadin 5 mg at 5 pm. 2. Your coumadin level or INR target range is 2-3 and this will need to be checked by the VisitingNurse on the day after discharge and at least twice per week thereafter (usually every Monday and ). The INR should be reported to the [facility]o clinic at [phone], and you will be informed of any needed changes in your Coumadin dose. 3. If your INR level is ever above 3.5 you should not participate in aggressive Physical therapy exercises - you can mobilize/ambulate. This will decrease the possibility of more bleeding into your joint. Once your INR is less than 3.5 you can resume Physical therapy. One of the Orthopedic nurses willcall you with further instructions as needed. 4. You will be on Coumadin for 4 weeks. After your dose on January 18, STOP the Coumadin. On January 19, begin enteric-coated Aspirin 325mg twice a day until you are seen in followup with your orthopedicsurgeon. Lovenox injections: You may need to give yourself a Lovenox injection (40 mg subcutaneous) daily if your INR level does not increase as much as expected. If needed, you will be on the Lovenox injections (40mg daily) until your INR level is greater than 1.4. Once that happens, stop the Lovenox and continue just the coumadin as instructed above. Your dose will be decided after your blood is drawn either Monday or Monday. Diet: Resume usual diet, but increase your intake of fluids and fiber while you are on narcotic painmeds to prevent constipation Driving: No, not until you are cleared to do so by your Orthopedic surgeon. Ideally you should not drive if you are on narcotic pain meds as these can affect your judgement and reaction time. Call yoursurgeon with any questions. Medication: 1. The pain medication that you are using can cause constipation, so make sure you increase your intake of fluids and fiber while you are on them. You should also take the stool softener that was ordered, sennakot, to factilitate a bowel movement. An [id number] medication, miralax can also be used if needed to combat constipation 2. If you need a renewal on your narcotic pain medication, you need to give the Orthopedic clinic enough time to process your request. This can take up to three days, so plan accordingly. 3. Continue the Tylenol around the clock for the next 10 days (December 31). This can be effective in controlling pain along with your other medications. Shower: 1. You can shower but remember your activity limitations and always have a chair available for balance and protection. DO NOT submerge the dressing/incision. 2. (Mepilex) Do not let water run over the operative dressing. If it becomes wet lightly pat the dressing dry. When this operative dressing is removed you can let water gently run over the incision. DONOT submerge the incision. Wound (Mepilex): 1. Sutures/sindy: No external sindy or sutures inplace. Sutures are internal and will be absorbed over time. 2. Remove your operative dressing 7 days from your surgery (December 28). When it is removed you can leave the incision open to air or cover it with a light dressing. 3. If you have lots of drainage when you get home (and it is before December 28), remove this operativedressing and replace it with dry sterile gauze. Continue with daily dressing changes (and as needed)until the drainage stops, then remove the dressing and leave the incision open to air or lightly covered. FOLLOWUP APPOINTMENTS: You will have followup appointments at [facility] as indicated in Future Appointments and Orders. You will have an xray prior to those appointments so please come to Radiology, desk 3T, 1 hour BEFORE your appointment for those x-rays. documented in this encounter Medications at Time of Discharge Medication Sig Dispensed Refills Start Date End Date acetaminophen Take 2 tablets by mouth 0 3 (TYLENOL) 500 mg every 8 hours. Last day tablet for scheduled dosing = December 31. Then may take every 8 hours as needed. Do not take more than 4,000 mg of acetaminophen in 24 hours. warfarin (COUMADIN) 5 Take 1 tablet by mouth 45 tablet 0 12/22/2012 mg tablet once for 1 dose. Your dose may vary depending on the INR value. You may need to break or combine pills to achieve the right dose. Take Coumadin 5 mg on Monday, December 22 at 5 pm. OXYcodone (ROXICODONE) Take 1-3 tablets by 80 tablet 0 11/2902/11/2013 5 mg immediate release mouth every 4 hours as tablet needed for Pain (mild pain). polyethylene glycol Take 17 g by mouth 2 0 201202/11/2013 (MIRALAX) 17 gram times daily. packet senna-docusate Take 1-4 tablets by 60 tablet 0 12/22/2012 0 02/11/2013 (PERICOLACE) 8.6-50 mg mouth 2 times daily. per tablet enoxaparin (LOVENOX) Inject 0.4 mLs 2 Syringe 1 12/23/2012 02/11/2013 40 mg/0.4 mL Syrg subcutaneously daily as injection needed (Daily as needed for INR less than 1.4). ranitidine (ACID Take 75 mg by mouth 0 05/06/2013 SCRATCH POLISHER) 75 mg tablet daily. letrozole (FEMARA) 2.5 Take 1 tablet by mouth 90 tablet 4 0 09/26/2012 12/20/2013 mg tabletIndications: daily. Breast cancer omeprazole (PRILOSEC) Take 20 mg by mouth 0 02/11/2013 20 mg capsule daily. LORazepam (ATIVAN) 1 Take 1 mg by mouth 0 12/11/2014 mg tablet every 6 hours as needed. documented as of this encounter Progress Notes Luci Carpio RN - 12/22/2012 2:08 PM EDT IV removed, site benign. My assessment remains unchanged from my previous assessment. Pt denies chest pain and shortness of breath. Discussed pain management with patient, pain tolerable. Pt medicated prior to discharge. Pt has all belongings. Pt received discharge summary and prescriptions. These were reviewed. All questions answered. Pt encouraged to call with questions or concerns. Pt discharged to home with family. Report faxed, called and given to [facility]. Johnny Colon MD - 12/22/2012 5:28 AM EDT Orthopaedic Surgery Progress Note Surgery: RIGHT 1. LEFT TOTAL KNEE REVISION ARTHROPLASTY, POLYETHYLENE LINER ONLY 2. COMPLETE SYNOVECTOMY AND PATELLAR CHEILECTOMY (LATERAL FACET) Patient Active Problem List Diagnoses Code ??? Breast cancer 174.9 ??? S/P knee replacement V43.65 ??? GERD (gastroesophageal reflux disease) 530.81 ??? Anxiety 300.00 ??? Vertigo 780.4 ??? Right knee pain 719.46 ??? S/P Right total knee arthroplasty V43.65 ??? s/p right knee synovectomy and poly exchange for wear. Sid 12/21 996.45 S/Events: Denies LAUREANO, dizziness, CP, SOB, nausea, vomiting, abd pain. Pain well controlled. Was able to sleep through the night with minimal pain. O: Vitals: Temp: [36.6 ??C (97.9 ??F)-36.7 ??C (98.1 ??F)] Heart Rate: [60-65] Resp: [16-18] BP: (118-126)/(67) SpO2: [93 %-94 %] I/O last 3 completed shifts: In: 2127.5 [P.O.:780; I.V.:1247.5; Other:100] Out: 975 [Urine:925; Blood:50] I/O this shift: In: - Out: 585 [Urine:425; Other:160] Exam: General: NAD, awake/alert Resp: Breathing comfortably Abd: S/NT/ND RLE: Dressing c/d/i. In cryocuff/SCD. Davol suction draining serosagnuinous fluid and removed with drain intact. Motor intact to EHL, FHL, TA. Sensation intact in thigh/foot/calf. Some decreased sensation over anterior thigh with weak quad mechanism. Brisk capillary refill distally. DP 2/2 Labs: Recent Labs Basename 12/22/12 0301 WBC 12.6* HGB 12.1 HCT 37.1 PLATELET 244 NA 139 K 3.7 CL 106 CO2 21* BUN 18 CREATININE 0.63* A/P: 67 y.o. year old female POD#1 s/p R revision TKA (poly-swap) and synovectomy. Doing well without acute complaints. progressing well with stable vitals and uop. - weight bear as tolerated - physical therapy - 24hrs prophylactic antibiotics - anticoagulation: Coumadin x 4 weeks - continue routine post-op care - dispo: home when clears PT Annika Sandoval MD - 12/21/2012 7:22 PM EDT Orthopaedic Surgery Post-Op Check Note Surgery: RIGHT 1. LEFT TOTAL KNEE REVISION ARTHROPLASTY, POLYETHYLENE LINER ONLY 2. COMPLETE SYNOVECTOMY AND PATELLAR CHEILECTOMY (LATERAL FACET) Patient Active Problem List Diagnoses Code ??? Breast cancer 174.9 ??? S/P knee replacement V43.65 ??? GERD (gastroesophageal reflux disease) 530.81 ??? Anxiety 300.00 ??? Vertigo 780.4 ??? Right knee pain 719.46 ??? S/P Right total knee arthroplasty V43.65 ??? s/p right knee synovectomy and poly exchange for wear. Sid 12/21 996.45 S/Events: Denies LAUREANO, dizziness, CP, SOB, nausea, vomiting, abd pain. Pain well controlled. O: Vitals: Temp: [36.2 ??C (97.2 ??F)-36.9 ??C (98.4 ??F)] Heart Rate: [57-79] Resp: [14-18] BP: (142-157)/(68-87) SpO2: [99 %-100 %] I/O last 3 completed shifts: In: 7 [P.O.:780; I.V.:1247; Other:100] Out: 975 [Urine:925; Blood:50] Exam: General: NAD, awake/alert Resp: Breathing comfortably Abd: S/NT/ND RLE: Dressing c/d/i. In cryocuff/SCD. Davol suction draining serosagnuinous fluid. Motor intact to EHL, FHL, TA. Sensation intact in thigh/foot/calf. Brisk capillary refill distally. DP 2/2 Labs: No results found for this basename: WBC:3,HGB:3,HCT:3,PLATELET:3,NA:3,K:3,CL:3,CO2:3,BUN:3,CREATININE:3 in the last 72 hours A/P: 67 y.o. year old female POD#0 s/p RIGHT 1. LEFT TOTAL KNEE REVISION ARTHROPLASTY, POLYETHYLENE LINER ONLY 2. COMPLETE SYNOVECTOMY AND PATELLAR CHEILECTOMY (LATERAL FACET) progressing well with stable vitals and uop. - weight bear as tolerated - physical therapy - 24hrs prophylactic antibiotics - continue routine post-op care Milana Baez RN - 12/21/2012 12:55 PM EDT Pt admitted s/p R knee revision. Awake and alert. Dsg to R knee C/D/I. On simple FM of 6L with O2sats 100%. 1245- on RA. 1255 C/O pain to R knee 6/10. Prn dilaudid 0.4mg given IV. Will continue to monitor for any acute changes. documented in this encounter H&P Notes Rae Lau MD - 12/21/2012 10:09 AM EDT I have seen and examined the patient, there are no changes in the interval history and physical, as completed by the primary care physician, and there is no apparent contraindication to proceeding withsurgery. documented in this encounter Procedure Notes Provider, Scanning - 12/25/2012 8:51 AM EDTAssociated Order(s): SCAN DOC: IMPLANTABLE DEVICES Provider, Scanning - 12/25/2012 8:51 AM EDTAssociated Order(s): SCAN DOC: SUPERVISOR LAUNDRY documented in this encounter Miscellaneous Notes Miscellaneous - Provider, Scanning - 12/25/2012 8:51 AM EDT Miscellaneous - Provider, Scanning - 12/25/2012 8:51 AM EDT Initial Assessments - Craig Wellington, PT - 12/22/2012 12:39 PM EDT Physical Therapy Evaluation Total Knee Arthroplasty POD #1 Patient Profile: Pt. is a 67 y.o. female admitted on 12/21/2012 by Rae Gore MD for R TKA with complete synovectomy, patellar cheilectomy lateral facet. Post op course stable. PMH: Past Medical History Diagnosis Date ??? Breast cancer ??? MS (congenital mitral stenosis) ??? Peptic ulcer disease ??? Diverticulosis ??? Colon polyps ??? Right knee pain 06/04/2012 anxiety; GERD; vertigo; Ca R breast PSH: Past Surgical History Procedure Date ??? Created by interface Carpal tunnel left Procedure Date: 2009 ??? Created by interface Entered not Verified Procedure Date: 07/12/2010 ??? Created by interface Left total knee replacement Procedure Date: 2006 ??? Created by interface Right total knee replacement Procedure Date: 1997 ??? Tubal ligation ??? Breast lumpectomy 1988 R ??? Endometrial biopsy dysfunctional uterine bleeding ??? Knee surgery R lat meniscectomy , R knee arthroscopy & , R knee osteotomy , R knee staple removal , R TKR , L TKR . ??? Arthroplasty B thumb ' ??? Carpal tunnel release L ??? Wrist fracture surgery 07/09 R Social History: Patient lives with spouse in 2 story home Precautions/Special Considerations: fall risk Post-operative course: Uneventful Subjective: wants to go home Objective: Vitals: unmonitored; asymptomatic Most recent Hgb value: 12.1/37.1 Pain: controlled Strength: good quad set and R L/E control Functional Mobility: Supine->sit: independent Sit->supine: independent Sit->stand: independent, with walker Stand->sit: independent, with walker Gait: Ambulated using standard walker Gait pattern: large R swing, step to L swing Pt. to utilize walker to ambulate with nursing staff. Today???s Treatment: 1. Evaluation 2. Reviewed post op exercises 3. Walked, negotiated stairs Informed Consent: The patient agrees to and understands the PT treatment plan and goals. Education: Patient and significant other educated on Role of therapy and verbalize understanding. Patient status, treatment, and mobility recommendations discussed with nursing staff. Assessment: Pt is POD#1 uncomplicated R TKA. Pt. tolerated today???s session well. Pt presents with pain, decreased ROM, strength, functional mobility, and gait skills. Pt will benefit from PT to address his/her functional deficits to restore prior level of function. Anticipate d/c POD #1. Range of Motion: AROM R knee extension = 10, flexion = 80; AROM L knee extension = 0, flexion = 130 Ambulation distance: 200 feet Goals: ) Goal met? Yes No Pt will be knowledgeable of prescribed exercises. x Pt will demonstrate AROM knee extension 0-15 degrees and flexion 80-90 degrees x Pt will move supine<>sit unassisted x Pt will move sit<>stand unassisted x Pt will ambulate 200 feet using standard walker x Pt will negotiate 113 steps railing unassisted x Discharge Recommendations: home with family and community help; pt will seek PT when not house bound Plan: d/c home as above Equipment needs: none; pt prefers standard walker Total treatment time: 50 minutes Total timed treatment: 0 minutes (initial eval) CRAIG WELLINGTON, PT Pager: [phone] Initial Assessments - Art Barillas RN - 12/22/2012 12:28 PM EDT Office of Care Management/[facility] [employer] (CRC)/Initial Assessment CRC Art Barillas RN (pager [phone]) Patient: Sofía Mcdonald : 1945 (67 y.o.) Home: [facility] [id number] LOS: 1 day Care reviewed with Dr. Colon. Reviewed record and interviewed patient. Introduced CRC role and services accepted. is at the bedside and supportive. Patient Active Problem List Diagnoses Code ??? Breast cancer 174.9 ??? S/P knee replacement V43.65 ??? GERD (gastroesophageal reflux disease) 530.81 ??? Anxiety 300.00 ??? Vertigo 780.4 ??? Right knee pain 719.46 ??? S/P Right total knee arthroplasty V43.65 ??? s/p right knee synovectomy and poly exchange for wear. Sid 12/21 996.45 ?? Social/Family situation: Lives with who appears to be in good health, supportive, and available to assist at home. 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 Extended Emergency Contact Information Primary Emergency Contact: Micheal Mcdonald III Relation: Durable Power of Civil Laboratory Technician for Healthcare Secondary Emergency Contact: Peggy Bryant Relation: Parent Father: Luci Kinney ?? Code status: Full Code ?? Advance directives: Received ?? Insurance coverage: Medicare [place], [place] Blue Shield, [employer] Rx coverage ?? Financial concerns: None ?? Anticipated barriers to discharge: None ?? Identified patient/family concerns r/t discharge: None ?? Application Counselor referral indicated: No ?? Baseline functional status/mobility: Independent ?? Current home/community services/equipment: Walker, shower bench, cane, crutches, raised toilet seat ?? Current functional status/mobility: Independent with walker ?? Anticipated discharge date: Today, Friday 12/22 ?? Anticipated discharge place: Home ?? Home health agency: [facility] RN/PT orders pended for start of care Saturday 12/23. ?? Transportation at discharge: ?? PCP: WOLF IZAGUIRRE DO, Future Appointments Date Time Provider Department Center 02/11/2013 3:40 PM Rae Lau MD [facility] 3D None Plan: Care Management will continue to monitor progress, follow for continuity of care, and assist with discharge planning. Plan of Care - Arabella Dominguez RN - 12/22/2012 3:45 AM EDT Problem: Pressure Ulcer Risk (Using Arnold Scale) (Adult, Obstetric) Goal: Pressure Ulcer Risk (using Arnold Scale): Tissue Integrity Patients skin noted to be intact at this time and free of pressure ulcers. Patient able to independently turn themselves every 2 hours. RN will monitor patients skin. Problem: Trauma/Injury Risk (Adult, Obstetric) Goal: Trauma/Injury Risk: Absence of Trauma/Injury/Falls Patient not yet OOB. Patient remains free of falls during this hospitalization. Patient has a call tavares within reach, and aware to alert RN when they are wanting to mobilize. Problem: Pain, Acute (Adult, Obstetric) Goal: Acute Pain: Acceptable Pain Control/Comfort Level - Pain, Acute (Adult, Obstetric) Patient reporting well controlled pain with DISTRIBUTION CENTER ASSISTANT. Patient aware to notify RN if pain becomes uncontrolled. Call tavares within reach. Will continue to monitor. Discharge Summary - Sofía Anderson APRN - 12/21/2012 4:20 PM EDT Department of Orthopaedic Medicine - Discharge Summary Patient Name: Sofía Mcdonald Patient Age: 67 y.o. Birthdate: 1945 Admit date: 12/21/2012 Discharge date: 12/22/2012 Attending Physician: Rae Lau MD Discharge Diagnoses (Hospital Problems) and Secondary Diagnoses (Chronic Problems): Patient Active Problem List Diagnoses Code ??? Breast cancer 174.9 ??? S/P knee replacement V43.65 ??? GERD (gastroesophageal reflux disease) 530.81 ??? Anxiety 300.00 ??? Vertigo 780.4 ??? Right knee pain 719.46 ??? S/P Right total knee arthroplasty V43.65 ??? s/p right knee synovectomy and poly exchange for wear. Sid 12/21 996.45 Operations: 12/21/2012 LEFT TOTAL KNEE REVISION ARTHROPLASTY, POLYETHYLENE LINER ONLY with COMPLETE SYNOVECTOMY AND PATELLAR CHEILECTOMY (LATERAL FACET) Surgeon(s) and Role: * Rae aLu MD - Primary * Jerad Retana MD - Resident-Surgeon Chief Hospital Course: The patient was admitted via Same Day Surgery for the above operation. DVT prophylaxis: Coumadin. Patient began rehab on POD#1 w/ weight bearing as tolerated of right leg remembering to use protection at all times for balance and protection. Drains were removed POD# 1. Ricci was removed POD#1 and patient was voiding spontaneously. The right knee dressing was inspected POD#1 and foundto be clean, dry and intact. Patient did not have a bowel movement prior to discharge but was passing flatus and taking PO without difficulty. By POD#1 the patient was medically stable and was cleared for safe discharge to home. Important Studies and Lab Data: Labs: Lab Results Component Value Date HGB 12.1 12/22/2012 HCT 37.1 12/22/2012 Transfusions: No Discharge Conditions: Stable, awake, and alert. Mobilizing with a walker/crutches, pain controlled on oral medications. Vital Signs: Last value Range last 24 hrs Temperature Temp: 36.5 ??C (97.7 ??F) Temp: [36.5 ??C (97.7 ??F)-36.9 ??C (98.4 ??F)] Heart Rate Heart Rate: 58 Heart Rate: [58-79] Blood Pressure BP: 126/69 mmHg BP: (118-152)/(65-87) Respiratory Rate Resp: 16 Resp: [16-18] SpO2 SpO2: 98 % SpO2: [93 %-100 %] Art BP BP (Arterial Line): -- Discharge to: Home with VNA. Discharge Medications: Medications prior to admission that will be resumed at discharge: Medication Sig Dispense Refill ??? ranitidine (ACID SCRATCH POLISHER) 75 mg tablet Take 75 mg by mouth daily. ??? letrozole (FEMARA) 2.5 mg tablet Take 1 tablet by mouth daily. 90 tablet 4 ??? omeprazole (PRILOSEC) 20 mg capsule Take 20 mg by mouth daily. ??? LORazepam (ATIVAN) 1 mg tablet Take 1 mg by mouth every 6 hours as needed. New medications prescribed at discharge: Medication Sig Dispense Refill ??? acetaminophen (TYLENOL) 500 mg tablet Take 2 tablets by mouth every 8 hours. Last day for scheduled dosing = December 31. Then may take every 8 hours as needed. Do not take more than 4,000 mg of acetaminophen in 24 hours. ??? OXYcodone (ROXICODONE) 5 mg immediate release tablet Take 1-3 tablets by mouth every 4 hours as needed for Pain (mild pain). 80 tablet 0 ??? polyethylene glycol (MIRALAX) 17 gram packet Take 17 g by mouth 2 times daily. ??? senna-docusate (PERICOLACE) 8.6-50 mg per tablet Take 1-4 tablets by mouth 2 times daily. 60 tablet 0 ??? warfarin (COUMADIN) 5 mg tablet Take 1 tablet by mouth once for 1 dose. Your dose may vary depending on the INR value. You may need to break or combine pills to achieve the right dose. Take Coumadin 5 mg on December 22 at 5 pm. 45 tablet 0 ??? enoxaparin (LOVENOX) 40 mg/0.4 mL Syrg injection Inject 0.4 mLs subcutaneously daily as needed (Daily as needed for INR less than 1.4). 2 Syringe 1 Updated Allergies/ADRs: Allergies Allergen Reactions ??? Metoclopramide Hcl Other (See Comments) Disorientation, flushing, fatigue ??? Prochlorperazine Maleate Other (See Comments) agitation Instructions Given to Patient at Discharge: General Instructions Activity: 1. You can weight bearing as tolerated on your Right leg remembering to use a walker or crutches at all times for balance and protection. 2. Flexion AND extension are important to work on at home. You should NOT place a pillow under your right knee. To help with extension you can place a pillow under your heel or lower leg or placed lengthwise along the leg. Again DO NOT place a pillow under the operated knee for comfort. 3. You should wear the GEORG[place]NA hose to knee bilaterally until you are seen in followup. Remove these at least once per day to inspect your skin. Coumadin flow sheet: Date Notes INR Coumadin dose (mg) 12/21 day of operation 1.0 5 12/22 POD 1 1.0 5 mg due at 5 pm Anti-coagulation follow up: 1. You should take 5 mg (one of the 5mg pills) of Coumadin today, December 22 at 5 pm. Take this medication at the same time each day - usually 5pm. If the [facility]NA is unable to check your INR on December 23, take Coumadin 5 mg at 5 pm. 2. Your coumadin level or INR target range is 2-3 and this will need to be checked by the VisitingNurse on the day after discharge and at least twice per week thereafter (usually every Monday and ). The INR should be reported to the [facility] clinic at [phone], and you will be informed of any needed changes in your Coumadin dose. 3. If your INR level is ever above 3.5 you should not participate in aggressive Physical therapy exercises - you can mobilize/ambulate. This will decrease the possibility of more bleeding into your joint. Once your INR is less than 3.5 you can resume Physical therapy. One of the Orthopedic nurses willcall you with further instructions as needed. 4. You will be on Coumadin for 4 weeks. After your dose on January 18, STOP the Coumadin. On January 19, begin enteric-coated Aspirin 325mg twice a day until you are seen in followup with your orthopedicsurgeon. Lovenox injections: You may need to give yourself a Lovenox injection (40 mg subcutaneous) daily if your INR level does not increase as much as expected. If needed, you will be on the Lovenox injections (40mg daily) until your INR level is greater than 1.4. Once that happens, stop the Lovenox and continue just the coumadin as instructed above. Your dose will be decided after your blood is drawn either Monday or Monday. Diet: Resume usual diet, but increase your intake of fluids and fiber while you are on narcotic painmeds to prevent constipation Driving: No, not until you are cleared to do so by your Orthopedic surgeon. Ideally you should not drive if you are on narcotic pain meds as these can affect your judgement and reaction time. Call yoursurgeon with any questions. Medication: 1. The pain medication that you are using can cause constipation, so make sure you increase your intake of fluids and fiber while you are on them. You should also take the stool softener that was ordered, sennakot, to factilitate a bowel movement. An ipcw-ful-okmfisc medication, miralax can also be used if needed to combat constipation 2. If you need a renewal on your narcotic pain medication, you need to give the Orthopedic clinic enough time to process your request. This can take up to three days, so plan accordingly. 3. Continue the Tylenol around the clock for the next 10 days (December 31). This can be effective in controlling pain along with your other medications. Shower: 1. You can shower but remember your activity limitations and always have a chair available for balance and protection. DO NOT submerge the dressing/incision. 2. (Mepilex) Do not let water run over the operative dressing. If it becomes wet lightly pat the dressing dry. When this operative dressing is removed you can let water gently run over the incision. DONOT submerge the incision. Wound (Mepilex): 1. Sutures/sindy: No external sindy or sutures inplace. Sutures are internal and will be absorbed over time. 2. Remove your operative dressing 7 days from your surgery (December 28). When it is removed you can leave the incision open to air or cover it with a light dressing. 3. If you have lots of drainage when you get home (and it is before December 28), remove this operativedressing and replace it with dry sterile gauze. Continue with daily dressing changes (and as needed)until the drainage stops, then remove the dressing and leave the incision open to air or lightly covered. FOLLOWUP APPOINTMENTS: You will have followup appointments at [facility] as indicated in Future Appointments and Orders. You will have an xray prior to those appointments so please come to Radiology, desk 3T, 1 hour BEFORE your appointment for those x-rays. Future Appointments and Orders Future Appointments: Provider: Department: Dept Phone: Center: 02/11/2013 3:40 PM Rae Lau MD Orthopaedics [phone] None Joint Appt Health Question Three D [facility] [phone] None Future Orders Please Complete By Expires Referral to Physical Therapy [[id number] Custom] Process Instructions: Note: Please indicate in the comments any additional Instructions, Precautions or Contra-indications. Scheduling Instructions: Comments: Questions: Responses: Specialty Program Eval: Modalities could include: Treatment Focus: Reason for PT? s/p Right knee synovectomy and Poly exchange for wear December 21, 2012 Referral for Anticoagulation Monitoring [[id number] Custom] Process Instructions: If no progress note charted, please enter Clinical details in comments. 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 The encounter with the patient was in whole, or in part, for the following medical condition, which is the primary reason for home health care services: s/p right knee synovectomy and poly exchange forwear In discussion with the primary medical team, it is certified that, based on their findings, the indicated services are medically necessary and appropriate for home health services. HOME HEALTH AGENCY: [facility] PHONE: [phone] FAX: [phone] Home care orders for Total Knee Replacements: 1.RN: Draw PT/INR as follows: Saturday 12/23 Thereafter, PT/INR: every Monday and PT/INR results to be called and faxed as follows Mon-Mon Ortho anticoagulation (Coumadin) clinic @ [facility]: ; Sat/Sun: if the PT/INR is drawn on the weekend, call the results to the Orthopedic Resident on callat [phone] for Coumadin dose Point of care testing is acceptable Suture or Staple removal not necessary - SubQ closure. 2. PT: Continue PT rehab for balance, endurance, joint mobility, ROM, Strength, TKA protocol FOR MEDICARE ONLY: In discussion with the attending physician, it is certified that the clinical findings support that this patient is homebound (i.e. absences from home require considerable and taxingeffort and are for medical reasons or alevism services of infrequently or of short duration when for other reasons) Please note that any additional orders needs or changes will need to be obtained from this patient'sPCP: WOLF IZAGUIRRE DO [address] [facility] [address] All VNA agencies which cover the area of patient's residence have been reviewed, either verbally or in writing, and patient/family have chosen the indicated home health care agency for home services. Questions: Responses: Agency name and contact information [facility] Patient location post discharge Home What services are requested Registered Nurse Physical Therapy Start date 12/23/2012 Responsible MD post discharge contact info PCP/[facility] Orthopaedics Primary Care Provider: WOLF IZAGUIRRE DO [phone] Dr Lau - Joints: [phone] Signed: SOFÍA ANDERSON APRN 12/22/2012 Op Note - Jerad Retana MD - 12/21/2012 12:28 PM EDT Surgery Start Time: 1127 Surgery Stop Time: 1214 Patient Name: Sofía Mcdonald : [id number] MR#: [id number] Case Date: 12/21/2012 Surgeon: Surgeon(s) and Role: * Rae Lau MD - Primary * Jerad Retana MD - Resident-Surgeon Chief 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 RIGHT TOTAL KNEE REVISION ARTHROPLASTY, POLYETHYLENE LINER ONLY 2. COMPLETE SYNOVECTOMY AND PATELLAR CHEILECTOMY (LATERAL FACET) Anesthesia: General Findings: Polyethylene synovitis, but well-fixed components x 3, well- positioned. Placed a 20 mm CR conforming polyethylene liner Complications: None Fluids: As per anesthesia Estimated Blood Loss: 100 CC Drains: one Davol, TOURNIQUET 24 MINUTES Disposition: regional anesthesia adiminstered without incident, pending PACU wake-up Condition: Stable Implant Name Type Inv. Item Serial No. Chart Picker Lot No. LRB No. Used Action tibial insert /+ LSI 20mm [id number] Right 1 Implanted INDICATIONS FOR OPERATION: Mrs. Mcdonald presented to clinic complaining of instability and pain in her right total knee arthroplasty replacement many years ago. After a CT scan demonstrated that there were no osteolytic changes, decision was made to proceed to the OR for possible poly exchange, possible total knee revision if stability was not clear. Risks and benefits and surgical options were explained to her. She consented to intraop decision-making for poly exchange versus total revision. Prior to surgery, her knee had been aspirated and found to be negative. OPERATIVE COURSE: The patient was identified in the preoperative area and brought to the operative room where her identity was once again confirmed. She was transferred to the operating table and put to sleep by Anesthesia in the supine position. A tourniquet was placed high on her right leg. Her right leg was sterilely prepped and draped. All members of the operative team underwent time-out per [facility] protocol. The right leg was exsanguinated and tourniquet was placed at 275 mmHg where it stayed for the duration of the case, about 25 minutes. A midline incision in line with her prior arthrotomy was carried out sharply. Sharp dissection was continued down to the level of the rectus fascia. Medial and lateral soft tissue flaps were raised using blunt dissection and a Doe elevator. We then proceeded with a medial parapatellar arthrotomy in the midline of the quad tendon, We observed that there were extensive synovitic changes consistent with polyethylene synovitis throughout the knee. Complete synovectomy was then undergone protecting the quad tendon with the use of Allis clamps and pulling the synovium away using Marichuy clamps. At that point, we were able to protect the MCL and LCL with sharp-tipped Hohmann retractors and flexed the knee up. We continued our synovectomy resecting the scar tissue around the patella button and resecting osteophytes on the lateral aspect of the patella button. This constituted our patellar cheilectomy. The remnant of the anterior fat pad was excised using cautery. Limited medial peel was carried out and then the preexisting polyethylene was removed using an osteotome to pry it loose. We evaluated the tibial and femoral components and found them to be extremely well fixed. Poly trials were sequentially placed until we achieved stability with a size 20 trial. We decided then this would be the size of the replacement polyethylene. The knee was then copiously irrigated. Polyethelene component was opened under the back table and locked into place on the tibia without difficulty whatsoever. We copiously irrigated the knee once more and dropped the tourniquet for a total of 24 minutes. Meticulous hemostasis was carried out and then a drain was placed underneath the vastus lateralis with the drain going through the lateral gutter and covering medially to the level of the incision. Arthrotomy was then closed using a quill suture. Deep fat was closed using a 0 Vicryl and then more superficially we used a combination of one Vicryl and 2-0 Vicryl. Vandemere were used to close the most superficial layer of skin. Mepilex dressing was placed over the incision followed by Kerlix and Justin bandages. The patient was then awoken by Anesthesia, transferred to the hospital bed having suffered no apparent untoward consequences. Brief Op Note - Rae Lau MD - 12/21/2012 12:12 PM EDT Brief Operative Note Patient Name: Sofía Mcdonald : [id number] MR#: [id number] Case Date: 12/21/2012 Surgeon: Surgeon(s) and Role: * Rae Lau MD - Primary * Jerad Retana MD - Resident-Surgeon Chief Preoperative diagnosis: Poly wear, has a Sionex TKA placed in 1996, poly exchange only. If loose, will put in DePuy TKA Postoperative diagnosis: Poly wear Procedure(s): 1. LEFT TOTAL KNEE REVISION ARTHROPLASTY, POLYETHYLENE LINER ONLY 2. COMPLETE SYNOVECTOMY AND PATELLAR CHEILECTOMY (LATERAL FACET) Anesthesia: General Findings: Polyethylene synovitis, but well-fixed components x 3, well- positioned. Placed a 20 mm CR conforming polyethylene liner Complications: None Fluids: As per anesthesi Estimated Blood Loss: 100 CC Drains: one Davol, TOURNIQUET 24 MINUTES Disposition: regional anesthesia adiminstered without incident, pending PACU wake-up Condition: Pending (Please see the Surgical Encounter Summary for any Implant and Specimen details pertinent to this patient.) OR Attestation - Rae Lau MD - 12/21/2012 12:12 PM EDT Attestation: Case Date: 12/21/2012 I was present and I participated during the entire procedure (does not need to include opening and closing). RAE LAU MD 12/21/2012 Miscellaneous - Provider, Scanning - 12/21/2012 9:00 AM EDT Miscellaneous - Provider, Scanning - 12/21/2012 8:59 AM EDT documented in this encounter Plan of Treatment Scheduled Referrals Name Type Priority Associated Order Schedule Diagnoses Referral to Physical Outpatient Routine s/p right knee Order ed: Therapy Referral synovectomy and 12/22/2012 poly exchange for wear. Sid 12/21 Referral for Outpatient Routine s/p right knee Ordered: Anticoagulation Referral synovectomy and 3 Monitoring poly exchange for wear. Sid 12/21 documented as of this encounter Procedures Procedure Name Priority Date/Time Associated Comments Diagnosis IMPLANTABLE DEVICES 12/25/2012 8:51 AM Re sults for this SCAN EDT procedure are i n the results section. SUPERVISOR LAUNDRY SCAN 12/25/2012 8:51 AM R esults for this EDT procedure are i n the results section. DIFFERENTIAL, Routine 12/22/2012 3:01 AM Results for this AUTOMATED EDT procedure are i n the results section. PROTHROMBIN TIME Routine 12/22/2012 3:01 AM Resul ts for this EDT procedure are i n the results section. CBC (WITH DIFF) Routine 12/22/2012 3:01 AM Result s for this EDT procedure are i n the results section. BASIC METABOLIC PANEL Routine 12/22/2012 3:01 AM Results for this (NON-FASTING) EDT procedure are in the results section. PROTHROMBIN TIME Routine 12/21/2012 4:19 PM Resul ts for this EDT procedure are i n the results section. MODIFIER PFC & MBT 12/21/2012 10:50 Pain in limb REVISION DEPUY AM EDT (DELETED) @TOTAL KNEE REVISION 12/21/2012 10:50 Pain in limb ARTHROPLASTY, AM EDT COMPLETE (WRVU 27.11) documented in this encounter Results SCAN DOC: SUPERVISOR LAUNDRY (12/25/2012 8:51 AM EDT) Narrative 12/25/2012 9:27 AM EDT Procedure Note Provider, Scanning - 12/25/2012 8:51 AM EDT Scanning Provider MEDIA MGR SCAN EXT ORDR/RSLT SCAN DOC: IMPLANTABLE DEVICES (12/25/2012 8:51 AM EDT) Narrative 12/25/2012 8:51 AM EDT Procedure Note Provider, Scanning - 12/25/2012 8:51 AM EDT Scanning Provider MEDIA MGR SCAN EXT ORDR/RSLT (ABNORMAL) Differential, Automated (12/22/2012 3:01 AM EDT) [facility] Method Time Signature Neutrophils % 84.7 (H) 34.0 - CERNER 71.0 % MILLENNIUM Neutr Abs (ANC) 10.65 (H) 1.50 - CERNER 6.30 MILLENNIUM x10(3)/mc L Lymphocytes % 9.1 (L) 19.0 - CERNER 53.0 % MILLENNIUM Lymphocytes Abs 1.2 1.0 - 3.6 CERNER x10(3)/mc MILLENNIUM L Monocytes % 6.0 4.0 - CERNER 13.0 % MILLENNIUM Monocyte Abs 0.8 0.2 - 1.0 CERNER x10(3)/mc MILLENNIUM L Eosinophils % 0.0 0.0 - 7.0 CERNER % MILLENNIUM Eosinophils Abs 0.0 0.0 - 0.5 CERNER x10(3)/mc MILLENNIUM L Basophils % 0.1 0.0 - 2.0 CERNER % MILLENNIUM Basophils Abs 0.0 0.0 - 0.2 CERNER x10(3)/mc MILLENNIUM L Immature Gran % 0.10 0.00 - CERNER 0.66 % MILLENNIUM Comment: Immature granulocytes(IG's)percentage an d absolute count will include metamyelocytes, myelocytes, and promyelo cytes. Blood smears from CBCs yielding IG's will be scanned manually for concor dance. If this scan disagrees with the automated IG or if promyelocytes are not ed, a manual differential will be performed. Tonya Gran Abs 0.01 0.00 - 0.05 x10(3)/mcL CER NER [facility] Specimen Anatomical Collection Method Collection Time Receive d Time (Source) Location / / Volume Laterality Blood specimen 12/22/2012 3:01 AM 013 3:27 (specimen) EDT AM EDT Rae Lau MD HEMATOLOGY ORDERABLES Performing Organization Address City/[facility]/ZIP Code Phon e Number [address] [place] MILLENNIUM Prothrombin Time (12/22/2012 3:01 AM EDT) P athologist Signature PT 13.8 12.0 - 15.0 CERNER sec [facility] Comment: [facility] Transfusion Committee Guidelines: I NR less than 2.0, PTT less than OR equal to 43.5 seconds, or Fibrinogen gre ater than or equal to 100 mg/dl indicate adequate procoagulant activity for hemostasis in patients without underlying bleeding disorders. INR 1.0 0.9 - 1.1 [facility] Specimen Anatomical Collection Method Collection Time Receive d Time (Source) Location / / Volume Laterality Blood specimen 12/22/2012 3:01 AM 013 3:27 (specimen) EDT AM EDT Resulting Agency Comment Spec In Lab Authorizing Provider Result Christy Lau MD HEMATOLOGY ORDERABLES Performing Organization Address City/[facility]/ZIP Code Phon e Number [address] CERNER MILLENNIUM (ABNORMAL) Basic Metabolic Panel (non-fasting) (12/22/2012 3:01 AM EDT) P athologist Signature Glucose Lvl 147 60 - 199 CERNER mg/dL MILLENNIUM Comment: Diabetes: >=200 mg/dL plus symp toms BUN 18 8 - 18 mg/dL CERNER MILLENNIUM Creatinine 0.63 (L) 0.70 - 1.20 mg/dL CERNER MILL ENNIUM Comment: Please note that the pediatric reference intervals supplied above were not validated at [facility]. Results from pediatri c patients should be interpreted in conjunction to the patient's age, height and muscle mass. Sodium 139 135 - 145 mmol/L CERNER YONNY NIUM Potassium 3.7 3.5 - 5.0 mmol/L CERNER YONNY NIUM Comment: Please note: ??Patients with WBC >100,00 0 may have falsely elevated Potassium levels. ??For accurate Potassium quantif ication in these patients send serum separator tube (gold top) for subsequent determinations. ??Contact the Clinical Chemistry Laboratory if there are any qu estions. Chloride 106 98 - 107 mmol/L CERNER MILLENN IUM CO2 21 (L) 22 - 31 mmol/L CERNER MILLENNI UM Anion Gap 12 5 - 15 mmol/L CERNER MILLENNIU M Calcium 8.3 (L) 8.5 - 10.5 mg/dL CERNER YONNY NIUM Estimated GFR >60 >=60 CERNER MILLENNIU M Comment: This estimated GFR (eGFR) value was calc ulated using the MDRD equation which has been validated on patients between t he ages of 18 and 70. The MDRD should not be used to assess kidney function in patients < 18 years of age or in patients with extremes of body mass, or in patients with acute kidney failure. This value should be multiplied by 1.2 f or patients. For further information please copy and past e the following links into your internet browser. http://www.nkdep.nih.gov/lab-evaluation. shtml http://www.kidney.org/professionals/ Specimen Anatomical Collection Method Collection Time Receive d Time (Source) Location / / Volume Laterality Blood specimen 12/22/2012 3:01 AM 013 3:27 (specimen) EDT AM EDT Resulting Agency Comment Spec In Lab Rae Lau MD CHEMISTRY ORDERABLES Performing Organization Address City/State/[place] [address] CERNER MILLENNIUM (ABNORMAL) CBC (with Diff) (12/22/2012 3:01 AM EDT) P athologist Signature WBC 12.6 (H) 4.0 - 10.0 CERNER x10(3)/mcL MILLENNIUM RBC 3.89 (L) 3.93 - CERNER 5.22 MILLENNIUM x10(6)/mcL Hemoglobin 12.1 11.2 - CERNER 15.7 gm/dL MILLENNIUM Hematocrit 37.1 34.0 - CERNER 45.0 % MILLENNIUM MCV 95.4 (H) 79.0 - CERNER 94.0 fL MILLENNIUM MCH 31.1 26.6 - CERNER 32.2 pg MILLENNIUM MCHC 32.6 32.0 - CERNER 36.5 gm/dL MILLENNIUM Platelets 244 145 - 370 CERNER x10(3)/mcL MILLENNIUM RDWSD 49.9 (H) 35.0 - CERNER 46.0 fL MILLENNIUM RDWCV 14.4 10.9 - CERNER 14.4 % MILLENNIUM MPV 9.6 9.0 - 12.0 CERNER fL MILLENNIUM Specimen Anatomical Collection Method Collection Time Receive d Time (Source) Location / / Volume Laterality Blood specimen 12/22/2012 3:01 AM 013 3:27 (specimen) EDT AM EDT Resulting Agency Comment Spec In Lab Rae Lau MD HEMATOLOGY ORDERABLES Performing Organization Address City/State/ZIP Code [place] [address] CERNER MILLENNIUM Prothrombin Time (12/21/2012 4:19 PM EDT) athologist Signature PT 13.2 12.0 - 15.0 CERNER sec MILLENNIUM Comment: [facility] Transfusion Committee Guidelines: I NR less than 2.0, PTT less than OR equal to 43.5 seconds, or Fibrinogen gre ater than or equal to 100 mg/dl indicate adequate procoagulant activity for hemostasis in patients without underlying bleeding disorders. INR 1.0 0.9 - 1.1 CERNER MILLENNIUM Specimen Anatomical Collection Method Collection Time Receive d Time (Source) Location / / Volume Laterality Blood specimen 12/21/2012 4:19 PM 013 4:37 (specimen) EDT PM EDT Resulting Agency Comment Spec In Lab Rae Lau MD HEMATOLOGY ORDERABLES Performing Organization Address City/State/ZIP Code Phon e Number [place] [id number] [facility] documented in this encounter Visit Diagnoses Diagnosis s/p right knee synovectomy and poly exch mildred for wear. 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 Scheduled Medication Order 12/20/2012 12/21/2012 12/22/2012 acetaminophen (TYLENOL) tablet 1,000 mg 1712 (Given - Provider: Andrei Gallo RN)2115 (Not Given - Provider: Arabella Dominguez RN - Reason: See comment - Comment: too close to previous dose) 0558 (Given - Provider: Arabella Dominguez RN)1306 (Given - Provider: Luci Carpio RN) 1,000 mg, Oral, EVERY 8 HOURS SCHEDULED, First dose on Mon12/21/12 at 1400, Until Discontinued, Maximum dose of acetaminophen is 4000 mg from all sources in 24 hours., Routine acetaminophen (TYLENOL) tablet 650 mg (COMPLETED) 929 (Given - Provider: Sujatha Flores RN) 650 mg, Oral, ONCE, 1 dose, Mon12/21/12 at 0930, Administer on arrival in Same Day Program, Day of Surgery (Day of Procedure), Routine ceFAZolin (ANCEF) 1g in dextrose 5% 50mL (COMPLETED) 1942 (New Bag - Provider: Andrei Gallo RN) 0236 (New Bag - Provider: Arabella Dominguez RN)1018 (New Bag - Provider: Luci Carpio RN) 1 g = 1,000 mg, Intravenous, EVERY 8 FAUZIA RS, 3 doses, First dose on Mon12/21/12 at 1300, Last dose on Mon12/22/12 at 0500, for 30 Minutes, For 3 doses postoperatively. Adjust to 8 hours from intraoperati ve dose., Indication (Active or Suspected): Prophylaxis ceFAZolin (ANCEF) 2g in dextrose 5% 50 mL (COMPLETED) 111 (Given by Other - Provider: Milana Baez RN) 2 g, Intravenous, ONCE, 1 dose, 12/21 at 0930, To be administered upon arrival to the OR within one hour prior to incision., Day of Surgery (Day of Procedure), Indication (Active or Suspected): Prophylaxis celecoxib (celeBREX) capsule 200 mg (COMPLETED) 929 (Given - Provider: Sujatha Flores RN) 200 mg, Oral, ONCE, 1 dose, Mon12/21/12 at 0930, Administer on arrival to Same Day Program, Day of Surgery (Day of Procedure), Routine esomeprazole (NEXIUM) capsule 40 mg (CANCELED) 2117 (Given - Provider: Arabella Dominguez RN) 0808 (Given - Provider: Luci shrestha RN) 40 mg, Oral, DAILY, First dose on Mon at 2000, Until Discontinued, Routine letrozole (FEMARA) tablet 2.5 mg (CANCELED) 08 (Given - Provider: Luci Carpio RN) 2.5 mg, Oral, DAILY, First dose on Mon at 0900, Until Discontinued, Routine multivitamin Ounb-Us-TZ-Min (THERAPEUTIC -M) 27-0.4 mg tablet 1 tablet (CANCELED) 1800 (Not Given - Provider: Andrei Gallo RN - Reason: Patient/family refused) 0808 (Given - Provider: Luci Carpio RN) 1 tablet, Oral, DAILY, First dose on Mon12/21/12 at 1800, Until Discontinued, Routine OXYcodone (ROXICODONE) immediate release tablet 10 mg (COMPLETED ) 1351 (Given - Provider: Luci Carpio RN) 10 mg, Oral, ONCE, 1 dose, 12/22/12 at 1400, Prior to dischar ge, STAT polyethylene glycol (MIRALAX) packet 17 g 807 (Given - Provider: Luci Carpio RN) 17 g, Oral, 2 TIMES DAILY, First dose on 12/22/12 at 0900, Until Discontinued, Routine senna-docusate (PERICOLACE) 8.6-50 mg per tablet 1-4 tablet 2117 (Given - Provider: Arabella Dominguez, GEMA) 807 (Given - Provider: Luci shrestha RN) 1-4 tablet, Oral, 2 TIMES DAILY, First d ose on Mon12/21/12 at 2100, Until Discontinued, Start with 1 tablet or liquid equivalent orally twice daily and titrate up to achieve: 1. One bowel movement at le ast every 48 hours, AND 2. Without straining, Routine sodium chloride 0.9 % flush 5 mL (CANCELED) 0930 (Given by Other - Provider: Milana Baez RN) 5 mL, Intravenous, EVERY 12 HOURS, First dose on Mon12/21/12 at 0930, Until Discontinued, Day of Surgery (Day of Procedure), Routine sodium chloride 0.9 % flush 5 mL (CANCELED) 1515 (Given - Provider: Andrei Gallo, GEMA) 0236 (Given - Provider: Arabella Dominguez, GEMA) 5 mL, Intravenous, EVERY 12 HOURS, First dose on Mon12/21/12 at 1515, Until Discontinued, Routine warfarin (COUMADIN) tablet 5 mg (COMPLETED) 1712 (Given - Provider: Andrei Gallo, GEMA) 5 mg, Oral, ONCE, 1 dose, Mon12/21/12 at 1700, Routine warfarin (COUMADIN) tablet 5 mg 5 mg, Oral, ONCE, 1 dose, Mon12/22/12 at 1700, Routine Continuous Medication Order 12/20/2012 12/21/2012 12/22/2012 HYDROmorphone (DILAUDID) 1 mg/mL DISTRIBUTION CENTER ASSISTANT 30 mL (CANCELED) 1246 (New Syringe/Cartridge - Provider: Milana Baez RN) 0607 (Stopped - Provider: Arabella Dominguez RN) Intravenous, DISTRIBUTION CENTER ASSISTANT ONLY, Starting 12/21/12 at 1300, Until S at 12/22/12 at 0528 lactated ringers infusion 1,000 mL (CANCELED) 0930 (New Bag - Provider: Sujatha Flores RN)1050 (Canceled Entry - Provider: Boston Valentine CRNA)1120 (Anesthesia Volume Adjustment - Provider: Boston Valentine CRNA)1140 (New Bag - Provider: Boston Valentine CRNA) 1,000 mL, at 100 mL/hr, Intravenous, CON TINUOUS, Starting Mon12/21/12 at 0930, Until Mon12/21/12 at 1422, Day of Surgery (Day of Procedure) 1228 (Stopped - Provider: Boston Valentine CRNA) sodium chloride 0.9% infusion (CANCELED) 1247 (New Bag - Provider: Milana Baez RN)2258 (New Bag - Provider: Arabella Dominguez RN) 0607 (Stopped - Provider: Arabella Dominguez RN) 1,000 mL, at 100 mL/hr, Intravenous, CON TINUOUS, Starting Mon12/21/12 at 1300, Until 12/22/12 at 1614 PRN Medication Order 12/20/2012 12/21/2012 12/22/2012 BUpivacaine-epiNEPHrine 0.25 %-1:200,000 injection (CANCELED ) 1202 (Given - Provider: Jerad Retana MD) ONCE PRN, Starting Mon12/21/12 at 1202, Until Mon12/21/12 at 1422, Intra- Operative (Intra-Procedure), Routine fentaNYL 50mcg/mL injection (CANCELED) 1 014 (Given - Provider: Sujatha Flores RN) 50 mcg, Intravenous, EVERY 5 MIN PRN, St arting Mon12/21/12 at 0932, Until Mon12/21/12 at 1422, Pain, or prior to injection of local anesthetic., Hold for respiratory rate less than 8 breaths per minute. (maximum dose 200 mcg), PACU Recovery, Routine HYDROmorphone (DILAUDID) injection 0.2-0.4 mg (CANCELED) 1254 (Given - Provider: Milana Baez RN) 0.2-0.4 mg, Intravenous, EVERY 5 MIN PRN , Starting 12/21/12 at 1233, Until 12/21/12 at 1422, Pain, For moderate pain give: 0.2 mg every 5 minute prn For severe pain give: 0.4 mg every 5 minutes pr n Maximum dose: 4 mg per hour Hold for r espiratory rate less than 10 per minute., PACU Recovery, Routine LORazepam (ATIVAN) tablet 1 mg (CANCELED) 2255 (Given - Provider: Arabella Dominguez RN) 1 mg, Oral, EVERY 6 HOURS PRN, Starting 12/21/12 at 1449, Until 12/22/12 at 1614, Anxiety, Routine midazolam (VERSED) injection 1 mg (CANCELED) 1014 (Given - Provider: Sujatha Flores RN) 1 mg, Intravenous, EVERY 5 MIN PRN, Star ting Mon12/21/12 at 0932, Until 12/21/12 at 1422, Anxiety, or prior to injection of local anesthetic., Hold for delirium/agitation. (maximum dose 5 mg), PACU Recovery, Routine OXYcodone (ROXICODONE) immediate release tablet 10 mg (CANCELED) 0558 (Given - Provider: Arabella Dominguez RN)1031 (Given - Provider: Luci Carpio RN) 10 mg, Oral, EVERY 4 HOURS PRN, Starting 12/21/12 at 1235, Until 12/22/12 at 1614, Pain, moderate pain, For Moderate pain. Do not exceed 15 mg in 4 hours. If pain not relieved, call provider., Routine OXYcodone (ROXICODONE) immediate release tablet 5 mg 0558 (See Alternative - Provider: Arabella Dominguez RN)1031 (See Alternative - Provider: Luci Carpio RN) 5 mg, Oral, EVERY 4 HOURS PRN, Starting 12/21/12 at 1235, Until 12/22/12 at 1614, Pain, mild pain, For Mild pain. Do not exceed 15 mg in 4 hours. If pain not relieved, call provider, Routine documented in this encounter Care Teams Horseshoer Relationship Specialty Start Date End Date Wolf Izaguirre DO PCP - General 06/22/[address] [place], [place] [id number] [place] [address] documented as of this encounter
--- OUTSIDE RECORDS SUMMARY | 2022-04-22 01:44 | XMS_ITS | Encounter Summary ---
:1945 Author Organization [facility] [place] [address] Care Team Providers Name Role Phone Javi Izaguirre DO Primary Care Provider Encounter Details Date Type Department Care Team Description 04/17/2014 Refill Hematology Oncology at [facility], eKshav Khan RN [address] [phone] Social History Tobacco Use [...] on filedocumented in this encounter Care Teams Case Fitter Relationship Specialty Start Date End Date Javi Izaguirre DO PCP - General 06/22/[address] [place] [address] documented as of this encounter
--- OUTSIDE RECORDS SUMMARY | 2022-04-22 01:44 | XMS_ITS | Encounter Summary ---
:1945 Author Organization [facility] [place] [address] Care Team Providers Name Role Phone Dmitriy, Wolf BURKS Primary Care Provider Reason for Referral Consultation (Routine) - Closed by system - unspecified Specialty Diagnoses / Procedures Referred By Contact Refer red To Contact Orthopaedic Surgery Diagnoses Polyethylene wear of right knee prosthesis Sofía Kay APRN [facility] [place] [address] Referral ID Status Reason Start Expiration Visits Visits Date Date Requested Authorized [id number] Closed by Assume 12/22/2012 06/20/2013 1 1 system - Subset of unspecified Care hysical Therapy (Routine) - Closed by system - unspecified Specialty Diagnoses / Procedures Referred By Contact Refer red To Contact Physical Therapy Diagnoses Polyethylene wear of right knee prosthesis Sofía Kay APRN [facility] [place] [address] Referral ID Status Reason Start Expiration Visits Visits Date Date Requested Authorized [id number] Closed by Evaluate and 06/20/2013 1 1 system - Treat 3 unspecified Encounter Details Date Type Department Care Team Description 12/21/2012 - Hospital Encounter 3 Kevin Ruiz Rae Lau, Pain in limb (Primary Dx); 12/22/2012 Ruperto Palacios MD Breast cancer; Hospital [facility] s/p right knee synovectomy a nd poly exchange for wear. Sid 12/21 [facility] [place] [id number] Social History Tobacco Use Types Packs/Day Years [...] in this encounter Discharge Instructions Discharge InstructionsSofía Kay, LENS FABRICATING MACHINE TENDER - 12/22/2012 12:43 PM EDT Activity: 1. [...] The INR should be reported to the [facility] Ortho clinic at [phone], and you will be informed of any [...] sennakot, to factilitate a bowel movement. An cawe-tqo-klvkbsb medication, miralax can also be used if [...] DONOT submerge the incision. Wound (Mepilex): 1. Sutures/atul: No external atul or sutures inplace. Sutures are internal and [...] APPOINTMENTS: You will have followup appointments at [facility] as indicated in Future Appointments and Orders. [...] Take 75 mg by mouth 0 05/06/2013 SAP HANA ARCHITECT) 75 mg tablet daily. letrozole (FEMARA) 2.5 [...] changes. documented in this encounter H&P Notes aRe Lau MD - 12/21/2012 10:09 AM EDT I have seen and examined the patient, there are no changes in the interval history and physical, as completed by the primary care physician, and there is no apparent contraindication to proceeding withsurgery. documented in this encounter Procedure Notes Monica Rios - 12/25/2012 8:51 AM EDTAssociated Order(s): SCAN DOC: IMPLANTABLE DEVICES Provider, Scanning - 12/25/2012 8:51 AM EDTAssociated Order(s): SCAN DOC: HEAD CASHIER documented in this encounter Miscellaneous Notes Miscellaneous [...] R TKR , L TKR '. ??? Arthroplasty B thumb ??? Carpal tunnel release L ??? Wrist [...] minutes (initial eval) CRAIG WELLINGTON, PT Pager: [phone] Initial Assessments - Art Barillas RN - 12/22/2012 12:28 PM EDT Office of Care Management/Clinical Byproducts Operator (CRC)/Initial Assessment CRC Art Barillas RN (pager [phone]) Patient: Sofía Mcdonald : 1945 (67 y.o.) Home: [facility] [phone] LOS: 1 day Care reviewed with Dr. [...] Micheal Mcdonald III Relation: Durable Power of Forestry Technician for Healthcare Secondary Emergency Contact: Peggy Bryant Relation: Parent Father: Luci Kinney ?? Code status: Full Code ?? Advance directives: Received ?? Insurance coverage: Medicare AB, [place] Blue Shield, [employer] Rx coverage ?? Financial concerns: None ?? Anticipated barriers to discharge: None ?? Identified patient/family concerns r/t discharge: None ?? Watch Parts Grinder referral indicated: No ?? Baseline functional status/mobility: Independent ?? Current home/community services/equipment: Walker, shower bench, cane, crutches, raised toilet seat ?? Current functional status/mobility: Independent with walker ?? Anticipated discharge date: Today, Friday 12/22 ?? Anticipated discharge place: Home ?? Home health agency: [facility] RN/PT orders pended for start of [...] Obstetric) Patient reporting well controlled pain with EPIDEMIOLOGY INVESTIGATOR. Patient aware to notify RN if pain becomes uncontrolled. Call tavares within reach. Will continue to monitor. Discharge Summary - Sofía Kay APRN - 12/21/2012 4:20 PM EDT Department [...] (LATERAL FACET) Surgeon(s) and Role: * Rae Lau MD - Primary * Jerad Retana MD - Resident-Surgeon Chief Hospital Course: The patient was admitted via Same Day Surgery for the above operation. DVT prophylaxis: Coumadin. Patient began rehab on POD#1 w/ weight bearing as tolerated of right leg remembering to use protection at all times for balance and protection. Drains were removed POD# 1. Ircci was removed POD#1 and patient was voiding [...] Medication Sig Dispense Refill ??? ranitidine (ACID SAP HANA ARCHITECT) 75 mg tablet Take 75 mg by [...] on Monday, December 22 at 5 pm. 45 tablet [...] (one of the 5mg pills) of Coumadin todayDecember 22 at 5 pm. Take this medication [...] The INR should be reported to the [facility] Ortho clinic at [phone], and you will be informed of any [...] sennakot, to factilitate a bowel movement. An geli-vqj-yiklnxc medication, miralax can also be used if [...] DONOT submerge the incision. Wound (Mepilex): 1. Sutures/atul: No external atul or sutures inplace. Sutures are internal and [...] APPOINTMENTS: You will have followup appointments at [facility] as indicated in Future Appointments and Orders. You will have an xray prior to those appointments so please come to Radiology, desk 3T, 1 hour BEFORE your appointment for those x-rays. Future Appointments and Orders Future Appointments: Provider: Department: Dept Phone: Center: 02/11/2013 3:40 PM Rae Lau MD Orthopaedics [phone] None Joint Appt Health Question [facility] Orthopaedics [phone] None Future Orders Please Complete By Expires Referral to Physical Therapy [REF87 Custom] Process Instructions: Note: Please indicate in the comments any additional Instructions, Precautions or Contra-indications. Scheduling Instructions: Comments: Questions: Responses: Specialty Program Eval: Modalities could include: Treatment Focus: Reason for PT? s/p Right knee synovectomy and Poly exchange for wear December 21, 2012 Referral for Anticoagulation Monitoring [[id number] Custom] Process Instructions: If no progress note charted, please enter Clinical details in comments. Scheduling Instructions: Comments: Questions: Responses: Responsible Group [facility] Reason for referral Coumadin, s/p Right Knee synovectomy and Poly Exchange for Wear 12/21 Risk Factors: Next due INR 12/23/2012 INR Goal 2.0-3.0 Target End Date 01/18/2013 Referral to Home Health [[id number] CPT(R)] Process Instructions: Scheduling Instructions: Comments: DISCHARGE DOCUMENTATION FOR VNA SERVICES [address] [place] [address] (home) Sales Representative [employer] Furniture: Self In discussion with the attending physician, it is certified that this patient is under their care and that they, or a nurse practitioner, clinical nurse specialist or physician's under water assistant who is working directly with them, [...] for home health services. HOME HEALTH AGENCY: [facility] PHONE: [phone] FAX: [phone] Home care orders for Total Knee Replacements: 1.RN: Draw PT/INR as follows: Saturday 12/23 Thereafter, PT/INR: every Monday and PT/INR results to be called and faxed as follows Mon-Mon Ortho anticoagulation (Coumadin) clinic @ [facility]: ; Sat/Sun: if the PT/INR is drawn on the weekend, call the results to the Orthopedic Resident on callat [phone] for Coumadin dose Point of care testing [...] taxingeffort and are for medical reasons or anglican services of infrequently or of short duration when for other reasons) Please note that any additional orders needs or changes will need to be obtained from this patient'sPCP: WOLF IZAGUIRRE DO [address] [facility] [address] All VNA agencies which cover the area of patient's residence have been reviewed, either verbally or in writing, and patient/family have chosen the indicated home health care agency for home services. Questions: Responses: Agency name and contact information [facility] Patient location post discharge Home What services are requested Registered Nurse Physical Therapy Start date 12/23/2012 Responsible MD post discharge contact info PCP/[facility] Orthopaedics Primary Care Provider: WOLF IZAGUIRRE DO [phone] Dr Lau - Joints: [phone] Signed: SOFÍA KAY APRN 12/22/2012 Op Note - Jerad Retana MD - 12/21/2012 12:28 PM EDT Surgery Start Time: 1126 Surgery Stop Time: 1214 Patient Name: Sofía Mcdonald : [id number] MR#: [id number] Case Date: 12/21/2012 Surgeon: Surgeon(s) and Role: [...] Implant Name Type Inv. Item Serial No. Decontaminator Lot No. LRB No. Used Action tibial insert /+ LSI 20mm [id number] Right 1 Implanted INDICATIONS FOR OPERATION: Mrs. [...] of the operative team underwent time-out per [facility] protocol. The right leg was exsanguinated and [...] combination of one Vicryl and 2-0 Vicryl. Atul were used to close the most superficial layer of skin. Mepilex dressing was placed over the incision followed by Kerlix and Justin bandages. The patient was then awoken by Anesthesia, transferred to the hospital bed having suffered no apparent untoward consequences. Brief Op Note - Rae Lau MD - 12/21/2012 12:12 PM EDT Brief Operative Note Patient Name: Sofía Mcdonald : [id number] MR#: [id number] Case Date: 12/21/2012 Surgeon: Surgeon(s) and Role: * Rae Lau MD - Primary * Jerad Retana MD - Resident-Surgeon Chief Preoperative diagnosis: Poly wear, has a Profitero TKA placed in 1996, poly exchange only. [...] opening and closing). RAE LAU MD 12/21/2012 Leathacellaneous - Provider, Scanning - 12/21/2012 9:00 AM EDT Hal - Provider, Scanning - 12/21/2012 8:59 AM EDT documented in this encounter Plan of Treatment Scheduled Referrals Name Type Priority Associated Order Schedule Diagnoses Referral to Physical Outpatient Routine s/p right knee Order ed: Therapy Referral synovectomy and 12/22/2012 poly exchange for wear. 12/21 Referral for Outpatient Routine s/p right knee Ordered: Anticoagulation Referral synovectomy and 3 Monitoring poly exchange for wear. Sid 12/21 documented as of this encounter Procedures Procedure Name Priority Date/Time Associated Comments Diagnosis IMPLANTABLE DEVICES 12/25/2012 8:51 AM Re sults for this SCAN EDT procedure are i n the results section. HEAD CASHIER SCAN 12/25/2012 8:51 AM R esults for [...] documented in this encounter Results SCAN DOC: HEAD CASHIER (12/25/2012 8:51 AM EDT) Narrative 12/25/2012 9:27 AM EDT Procedure Note Provider, Scanning - 12/25/2012 8:51 AM EDT Scanning Provider MEDIA MGR SCAN EXT ORDR/RSLT SCAN DOC: IMPLANTABLE DEVICES (12/25/2012 8:51 AM EDT) Narrative 12/25/2012 8:51 AM EDT Procedure Note Provider, Scanning - 12/25/2012 8:51 AM EDT Scanning Provider MEDIA MGR SCAN EXT ORDR/RSLT (ABNORMAL) Differential, Automated (12/22/2012 3:01 AM EDT) [facility] Method Time Signature Neutrophils % 84.7 (H) [...] yielding IG's will be scanned manually for anisha howard. If this scan disagrees with the automated IG or if promyelocytes are not ed, a manual differential will be performed. Tonya Gran Abs 0.01 0.00 - 0.05 x10(3)/mcL CER NER MILLENNIUM Specimen Anatomical Collection Method Collection Time Receive d Time (Source) Location / / Volume Laterality Blood specimen 12/22/2012 3:01 AM 013 3:27 (specimen) EDT AM EDT Rae Lau MD HEMATOLOGY ORDERABLES Performing Organization Address City/State/ZIP Code Phon e Number [address] CERNER MILLENNIUM Prothrombin Time (12/22/2012 3:01 AM EDT) athologist Signature PT 13.8 12.0 - 15.0 CERNER sec MILLENNIUM Comment: [facility] Transfusion Committee Guidelines: I NR less than [...] Organization Address City/State/ZIP Code Phon e Number [address] CERNER MILLENNIUM (ABNORMAL) Basic Metabolic Panel (non-fasting) (12/22/2012 3:01 AM EDT) athologist Signature Glucose Lvl 147 60 - 199 CERNER mg/dL MILLENNIUM Comment: Diabetes: >=200 mg/dL plus symp toms BUN 18 8 - 18 mg/dL CERNER MILLENNIUM Creatinine 0.63 (L) 0.70 - 1.20 mg/dL CERNER MILL ENNIUM Comment: Please note that the pediatric reference intervals supplied above were not validated at [facility]. Results from pediatri c patients should be [...] Organization Address City/State/[place] [address] CERNER MILLENNIUM (ABNORMAL) CBC [...] Lau MD HEMATOLOGY ORDERABLES Performing Organization Address City/[facility]/ZIP Code Phon e Number [address] CERNER MILLENNIUM Prothrombin Time (12/21/2012 4:19 PM EDT) P athologist Signature PT 13.2 12.0 - 15.0 CERNER sec MILLENNIUM Comment: [facility] Transfusion Committee Guidelines: I NR less than 2.0, PTT less than OR equal to 43.5 seconds, or Fibrinogen gre ater than or equal to 100 mg/dl indicate adequate procoagulant activity for hemostasis in patients without underlying bleeding disorders. INR 1.0 0.9 - 1.1 [facility] Specimen Anatomical Collection Method Collection Time Receive d Time (Source) Location / / Volume Laterality Blood specimen 12/21/2012 4:19 PM 013 4:37 (specimen) EDT PM EDT Resulting Agency Comment Spec In Lab Authorizing Provider Result Christy Lau MD HEMATOLOGY ORDERABLES Performing Organization Address City/[facility]/ZIP Code Phon e Number [address] CERNER MILLENNIUM documented in this encounter Visit Diagnoses Diagnosis s/p right knee synovectomy and poly exch mildred for wear. 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 Pain in limb Breast cancer Malignant neoplasm of breast (female), u nspecified site documented in this encounter Administered Medications Inactive Administered Medications - up to 3 most recent administrations Medication Order MAR Action Action Date Dose Rate Site acetaminophen (TYLENOL) tablet Given 12/22/2012 1:06 PM EDT 1,00 0 mg 1,000 mg 1,000 mg, Oral, EVERY 8 HOURS SCHEDULED, First dose on Mon12/21/12 at 1400, Until Discontinued, Maximum dose of acetaminophen is 4000 mg from all sources in 24 hours., Routine Given 12/22/2012 5:58 AM EDT 1,000 mg Given 12/21/2012 5:12 PM EDT 1,000 mg acetaminophen (TYLENOL) tablet 650 mg Given 12/21/2012 9:30 AM EDT 650 mg 650 mg, Oral, ONCE, 1 dose, On Mon12/21/12 at 0930, Administer on arrival in Same Day Program, Day of Surgery (Day of Procedure), Routine ceFAZolin (ANCEF) 1g in dextrose New Bag 12/22/2012 10:18 AM E DT 1,000 mg 100 mL/hr 5% 50mL 1,000 mg (1 g), Intravenous, EVERY 8 HOURS, 3 doses, First dose on Mon12/21/12 at 1300, Last dose on Mon12/22/12 at 0500, Administer over 30 Minutes, For 3 doses postoperatively. Adjust to 8 hours from intraoperative dose., Indication for (Active or Suspected): Prophylaxis New Bag 12/22/2012 2:36 AM EDT 1,000 mg 100 mL/hr New Bag 12/21/2012 7:43 PM EDT 1,000 mg 100 mL/hr ceFAZolin (ANCEF) 2g in dextrose 5% 50 Given by Other 3 11:12 AM EDT 2 g mL 2 g, Intravenous, ONCE, 1 dose, On Mon12/21/12 at 0930, To be administered upon arrival to the OR within one hour prior to incision., Day of Surgery (Day of Procedure), Indication for (Active or Suspected): Prophylaxis celecoxib (celeBREX) capsule 200 mg Given 12/21/2012 9:30 AM EDT 200 mg 200 mg, Oral, ONCE, 1 dose, On Mon12/21/12 at 0930, Administer on arrival to Same Day Program, Day of Surgery (Day of Procedure), Routine esomeprazole (NEXIUM) capsule 40 mg Given 12/22/2012 8:08 AM EDT 40 mg 40 mg, Oral, DAILY, First dose on Mon12/21/12 at 2000, Until Discontinued, Routine Given 12/21/2012 9:18 PM EDT 40 mg fentaNYL 50mcg/mL injection Given 12/21/2012 10:14 AM EDT 50 mcg 50 mcg, Intravenous, EVERY 5 MIN PRN, Starting on Mon12/21/12 at 0932, Until Mon12/21/12 at 1422, Pain, or prior to injection of local anesthetic., Hold for respiratory rate less than 8 breaths per minute. (maximum dose 200 mcg), PACU Recovery, Routine HYDROmorphone (DILAUDID) 1 mg/mL New Syringe/Cartridge 12/21/2012 1 2:46 PM EDT EPIDEMIOLOGY INVESTIGATOR 30 mL Intravenous, EPIDEMIOLOGY INVESTIGATOR ONLY, Starting on Mon12/21/12 at 1300, Until 12/22/12 at 0528 HYDROmorphone (DILAUDID) injection 0.2-0.4 Given 12/21/2012 12:54 PM EDT 0.4 mg mg 0.2-0.4 mg, Intravenous, EVERY 5 MIN PRN, Starting on Mon12/21/12 at 1233, Until Mon12/21/12 at 1422, Pain, For moderate pain give: 0.2 mg every 5 minute prn For severe pain give: 0.4 mg every 5 minutes prn Maximum dose: 4 mg per hour Hold for respiratory rate less than 10 per minute., PACU Recovery, Routine lactated ringers infusion 1,000 mL New Bag 12/21/2012 11:40 AM EDT mL 1,000 mL, at 100 mL/hr, Intravenous, CONTINUOUS, Starting on Mon12/21/12 at 0930, Until Mon12/21/12 at 1422, Day of Surgery (Day of Procedure) New Bag 12/21/2012 9:30 AM EDT 1,000 mLs 100 mL/hr letrozole (FEMARA) tablet 2.5 mg Given 12/22/2012 8:08 AM EDT 2.5 mg 2.5 mg, Oral, DAILY, First dose on Mon12/21/12 at 0900, Until Discontinued, Routine LORazepam (ATIVAN) tablet 1 mg Given 12/21/2012 10:55 PM EDT 1 mg 1 mg, Oral, EVERY 6 HOURS PRN, Starting on Mon12/21/12 at 1449, Until 12/22/12 at 1614, Anxiety, Routine midazolam (VERSED) injection 1 mg Given 12/21/2012 10:14 AM EDT 1 mg 1 mg, Intravenous, EVERY 5 MIN PRN, Starting on Mon12/21/12 at 0932, Until Mon12/21/12 at 1422, Anxiety, or prior to injection of local anesthetic., Hold for delirium/agitation. (maximum dose 5 mg), PACU Recovery, Routine multivitamin Lmkx-Il-UG-Min (THERAPEUTIC-M) Given 11/29 8:08 AM EDT 1 tablet 27-0.4 mg tablet 1 tablet 1 tablet, Oral, DAILY, First dose on Mon12/21/12 at 1800, Until Discontinued OXYcodone (ROXICODONE) immediate release Given 12/22/2012 10:31 AM EDT 10 mg tablet 10 mg 10 mg, Oral, EVERY 4 HOURS PRN, Starting on Mon12/21/12 at 1235, Until Mon12/22/12 at 1614, Pain, moderate pain, For Moderate pain. Do not exceed 15 mg in 4 hours. If pain not relieved, call provider., Routine Given 12/22/2012 5:58 AM EDT 10 mg OXYcodone (ROXICODONE) immediate release Given 12/22/2012 1:51 P M EDT 10 mg tablet 10 mg 10 mg, Oral, ONCE, 1 dose, On Mon12/22/12 at 1400, Prior to discharge, STAT polyethylene glycol (MIRALAX) packet 17 g Given 12/22/2012 8:08 AM EDT 17 g 17 g, Oral, 2 TIMES DAILY, First dose on Mon12/22/12 at 0900, Until Discontinued, Routine senna-docusate (PERICOLACE) 8.6-50 mg per Given 2012 8:08 AM EDT 2 tablets tablet 1-4 tablet 1-4 tablet, Oral, 2 TIMES DAILY, First dose on Mon12/21/12 at 2100, Until Discontinued, Start with 1 tablet or liquid equivalent orally twice daily and titrate up to achieve: 1. One bowel movement at least every 48 hours, AND 2. Without straining, Routine Given 12/21/2012 9:18 PM EDT 2 tablets sodium chloride 0.9 % flush 5 mL Given by Other 12/21/2012 9:30 AM EDT 5 mLs 5 mL, Intravenous, EVERY 12 HOURS, First dose on Mon12/21/12 at 0930, Until Discontinued, Day of Surgery (Day of Procedure) sodium chloride 0.9 % flush 5 mL Given 12/22/2012 2:36 AM EDT 5 mLs 5 mL, Intravenous, EVERY 12 HOURS, First dose on Mon12/21/12 at 1515, Until Discontinued Given 12/21/2012 3:15 PM EDT 5 mLs sodium chloride 0.9% infusion New Bag 12/21/2012 10:58 PM EDT 1,000 mLs 100 mL/hr 1,000 mL, at 100 mL/hr, Intravenous, CONTINUOUS, Starting on Mon12/21/12 at 1300, Until 12/22/12 at 1614 New Bag 12/21/2012 12:47 PM EDT 1,000 mLs 100 mL/hr warfarin (COUMADIN) tablet 5 mg Given 12/21/2012 5:12 PM EDT 5 mg 5 mg, Oral, ONCE, 1 dose, On Mon12/21/12 at 1700, Routine documented in this encounter Active and Recently Administered Medications Times are shown in EDT. Scheduled Medication Order 12/20/2012 12/21/2012 12/22/2012 acetaminophen (TYLENOL) tablet 1,000 mg 1712 (Given - Provider: Andrei Gallo RN)2115 (Not Given - Provider: Arabella Dominguez RN - Reason: See comment - Comment: too close to previous dose) 0558 (Given - Provider: Arabella Dominguez, GEMA)1306 (Given - Provider: Luci Carpio, GEMA) 1,000 mg, Oral, EVERY 8 HOURS SCHEDULED, [...] 2g in dextrose 5% 50 mL (COMPLETED) 1111 (Given by Other - Provider: Milana Baez RN) 2 g, Intravenous, ONCE, 1 dose, 12/21 at 0930, To be administered upon arrival to the OR within one hour prior to incision., Day of Surgery (Day of Procedure), Indication (Active or Suspected): Prophylaxis celecoxib (celeBREX) capsule 200 mg (COMPLETED) 929 (Given - Provider: Sujatha Flores, GEMA) 200 mg, Oral, ONCE, 1 dose, Mon12/21/12 at 0930, Administer on arrival to Same Day Program, Day of Surgery (Day of Procedure), Routine esomeprazole (NEXIUM) capsule 40 mg (CANCELED) 2117 (Given - Provider: Arabella Dominguez RN) 08 (Given - Provider: Luci shrestha RN) 40 mg, Oral, DAILY, First dose on Mon at 2000, Until Discontinued, Routine letrozole (FEMARA) tablet 2.5 mg (CANCELED) 807 (Given - Provider: Luci Carpio RN) 2.5 mg, Oral, DAILY, First dose on Mon at 0900, Until Discontinued, Routine multivitamin Sfyu-Oq-YN-Min (THERAPEUTIC -M) 27-0.4 mg tablet 1 tablet (CANCELED) 1800 (Not Given - Provider: Andrei Gallo RN - Reason: Patient/family refused) 08 (Given - Provider: Luci Carpio, GEMA) 1 tablet, Oral, DAILY, First dose on Mon12/21/12 at 1800, Until Discontinued, Routine OXYcodone (ROXICODONE) immediate release tablet 10 mg (COMPLETED ) 135 (Given - Provider: Luci Carpio, GEMA) 10 mg, Oral, ONCE, 1 dose, Mon12/22/12 at 1400, Prior to dischar ge, STAT polyethylene glycol (MIRALAX) packet 17 g 807 (Given - Provider: Luci Carpio RN) 17 g, Oral, 2 TIMES DAILY, First dose on Mon12/22/12 at 0900, Until Discontinued, Routine senna-docusate (PERICOLACE) 8.6-50 mg per tablet 1-4 tablet 2117 (Given - Provider: Arabella Dominguez, GEMA) 0808 (Given - Provider: Luci shrestha RN) 1-4 [...] mL (CANCELED) 1515 (Given - Provider: Andrei Gallo RN) 0236 (Given - Provider: Arabella Dominguez, GEMA) 5 mL, Intravenous, EVERY 12 HOURS, First dose on Mon12/21/12 at 1515, Until Discontinued, Routine warfarin (COUMADIN) tablet 5 mg (COMPLETED) 1712 (Given - Provider: Andrei Gallo RN) 5 mg, Oral, ONCE, 1 dose, Mon12/21/12 at 1700, Routine warfarin (COUMADIN) tablet 5 mg 5 mg, Oral, ONCE, 1 dose, Mon12/22/12 at 1700, Routine Continuous Medication Order 12/20/2012 12/21/2012 12/22/2012 HYDROmorphone (DILAUDID) 1 mg/mL EPIDEMIOLOGY INVESTIGATOR 30 mL (CANCELED) 1246 (New Syringe/Cartridge - Provider: Milana Baez RN) 0607 (Stopped - Provider: Arabella Dominguez, GEMA) Intravenous, EPIDEMIOLOGY INVESTIGATOR ONLY, Starting Mon12/21/12 at 1300, Until S at 12/22/12 at [...] CON TINUOUS, Starting Mon12/21/12 at 1300, Until Mon12/22/12 at 1614 PRN Medication Order 12/20/2012 12/21/2012 [...] Intravenous, EVERY 5 MIN PRN , Starting Mon12/21/12 at 1233, Until Mon12/21/12 at 1422, Pain, For moderate pain give: [...] mg, Oral, EVERY 4 HOURS PRN, Starting Mon12/21/12 at 1235, Until 12/22/12 at 1614, Pain, mild pain, For Mild pain. Do not exceed 15 mg in 4 hours. If pain not relieved, call provider, Routine documented in this encounter Care Teams Communications Intern Relationship Specialty Start Date End Date Wolf Izaguirre DO PCP - General 06/22/[address] [place] [address] documented as of this encounter
--- OUTSIDE RECORDS SUMMARY | 2022-04-22 01:44 | XMS_ITS | Encounter Summary ---
:1945 Author Organization [facility] [place] [address] Care Team Providers Name Role Phone Dmitriy, Javi BURKS Primary Care Provider Encounter Details Date Type Department Care Team Description 09/03/2013 Orders Only Orthopaedics at [facility] Ellis Lau, Bilateral hip pain (Primary Dx); [facility] Ramirez [place] [address] [address] [phone] [place] [address] Social History Tobacco Use Types Packs/Day Years Used Date Former Smoker Smokeless Tobacco: Never Used Comments: remote hx of smoking. Alcohol Use Standard Drinks/Week Comments Yes 7 (1 standard drink = 0.6 oz pure alcoho l) Sex Assigned at Date Recorded Female 03/31/2021 3:33 PM EDT documented as of this encounter Plan of Treatment Not on filedocumented as of this encounter Results XR pelvis AP and 2 views both hips (12/09/2013 1:20 PM EDT) Anatomical Region Laterality Modality Pelvis, Hip N/A Radiographic Imaging Specimen (Source) Anatomical Collection Method Collection Time Re ceived Time Location / / Volume Laterality 12/09/2013 1:20 PM EDT Narrative 12/09/2013 3:14 PM EDT Examination AP PELVIS AND TWO VIEWS BOTH HIPS Clinical History BILAT HIP PAIN Comparison 12/09/2011. Technique AP view of the pelvis including both hip s, as well as AP and lateral views of the right hip with Mag marker and AP and lateral views of the left hip with Mag marker. Findings Moderate to severe right hip joint space narrowing, minimally progressed from prior, with increased marginal productiv e changes as well as some bony buttressing along the femoral neck. ??Mi ld degenerative change of the left hip appears similar to prior. ?? Impression Progression of right hip arthropathy. No definite change on the left. Procedure Note Kim Flores MD - 12/09/2013Formatt ing of this note might be different from the original. Examination AP PELVIS AND TWO VIEWS BOTH HIPS Clinical History BILAT HIP PAIN Comparison 12/09/2011. Technique AP view of the pelvis including both hip s, as well as AP and lateral views of the right hip with Mag marker and AP and lateral views of the left hip with Mag marker. Findings Moderate to severe right hip joint space narrowing, minimally progressed from prior, with increased marginal productiv e changes as well as some bony buttressing along the femoral neck. Mild degenerative change of the left hip appears similar to prior. Impression Progression of right hip arthropathy. No definite change on the left. Ellis Lau MD IMG DX ORDERABLES XR knee diagnostic 1 or 2 view (12/09/2013 1:19 PM EDT) Anatomical Region Laterality Modality Knee N/A Radiographic Imaging Specimen (Source) Anatomical Collection Method Collection Time Re ceived Time Location / / Volume Laterality 12/09/2013 1:19 PM EDT Narrative 12/09/2013 3:24 PM EDT Examination KNEE 1 OR 2 VIEWS/RIGHT Clinical History R TKA REVISION 12/21/12/ BILAT HIP PAIN Comparison 02/11/2013. With 06/04/2012 . ?? Technique AP view of both knees, as well as a late ral view of the right knee. Findings The arthroplasty equipment by both knees appears unchanged in position/alignment. ??No new periprosthe tic lucency is identified on either side. No significant change on the later al projection of the right knee, allowing for differences in patient posi tioning /radiographic projection, which is more comparable to 06/04/2012 repeat right knee lateral view. Question minimal residual joint effusion. ?? Impression No significant interval change identifie d. Procedure Note Kim Flores MD - 12/09/2013Formatt ing of this note might be different from the original. Examination KNEE 1 OR 2 VIEWS/RIGHT Clinical History R TKA REVISION 12/21/12/ BILAT HIP PAIN Comparison 02/11/2013. With 06/04/2012 . Technique AP view of both knees, as well as a late ral view of the right knee. Findings The arthroplasty equipment by both knees appears unchanged in position/alignment. No new periprostheti c lucency is identified on either side. No significant change on the later al projection of the right knee, allowing for differences in patient posi tioning /radiographic projection, which is more comparable to 06/04/2012 repeat right knee lateral view. Question minimal residual joint effusion. Impression No significant interval change identifie d. Ellis Lau MD IMG DX ORDERABLES documented in this encounter Visit Diagnoses Diagnosis Bilateral hip pain - Primary Pain in joint, pelvic region and thigh Right knee pain Pain in joint, lower leg Right knee pain Pain in joint, lower leg Bilateral hip pain Pain in joint, pelvic region and thigh documented in this encounter Care Teams Coatings Inspector Relationship Specialty Start Date End Date Javi Izaguirre DO PCP - General 06/22/[address] [place] [address] documented as of this encounter
--- OUTSIDE RECORDS SUMMARY | 2022-04-22 01:44 | XMS_ITS | Encounter Summary ---
:1945 Author Organization [facility] [place] [address] Care Team Providers Name Role Phone Javi Izaguirre DO Primary Care Provider Reason for Referral Physical Therapy (Routine) - Complete - Patient Will Schedule External Appt Specialty Diagnoses / Procedures Referred By Contact Refer red To Contact Physical Therapy Diagnoses Knee joint replacement by other means Ellis Lau MD [address] [place] [address] Referral ID Status Reason Start Expiration Visits Visits Date Date Requested Authorized [id number] Complete - Evaluate and 02/06/2013 08/05/2013 12 12 Patient Will Treat Schedule External Appt Encounter Details Date Type Department Care Team Description 02/06/2013 Orders Only Orthopaedics at [facility] Ellis Lau, Knee joint replacement [facility] Ramirez [place]iseno [place] [address] [address] (Primary Dx) [phone] [place] [address] Social History Tobacco Use Types Packs/Day Years [...] S chedule Referral to Outpatient Referral Routine Knee joint Ordered: Physical Therapy replacement by other 04/2013 means documented as of this encounter Visit Diagnoses Diagnosis Knee joint replacement by other means - Primary documented in this encounter Care Teams Wire Weaving Loom Setter Relationship Specialty Start Date End Date Javi Izaguirre DO PCP - General 06/22/[address] [place] [address] documented as of this encounter
--- OUTSIDE RECORDS SUMMARY | 2022-04-22 01:44 | XMS_ITS | Encounter Summary ---
:1945 Author Organization [place] [address] Care Team Providers Name Role Phone Javi Izaguirre DO Primary Care Provider Encounter Details Date Type Department Care Team Description 03/05/2015 Orders Only Hematology Oncology at [facility], female, [facility] RN unspecified laterality [address] [place] [phone] Social History Tobacco Use Types Packs/Day Years [...] as of this encounter Visit Diagnoses Diagnosis Breast cancer, female, unspecified later ality documented in this encounter Care Teams Real Estate Representative Relationship Specialty Start Date End Date Javi Izaguirre DO PCP - General 06/22/[address] [place], [place] [address] documented as of this encounter
--- OUTSIDE RECORDS SUMMARY | 2022-04-22 01:44 | XMS_ITS | Encounter Summary ---
:1945 Author Organization [facility] [place] [address] Care Team Providers Name Role Phone Javi Izaguirre DO Primary Care Provider Encounter Details Date Type Department Care Team Description 02/11/2013 Hospital Encounter [place] [facility] [place] [facility] [place] in [place] [address] [place] [address] [place] [phone] Social History Tobacco Use Types Packs/Day Years Used Date Former Smoker Smokeless Tobacco: Never Used Alcohol Use Standard Drinks/Week Comments Yes 21 (1 standard drink = 0.6 oz pure alcoh ol) Sex Assigned at Date Recorded Female 03/31/2021 3:33 PM EDT documented as of this encounter Medications at Time of Discharge Medication Sig Dispensed Refills Start Date End Date ibuprofen Take 400 mg by mouth 0 (ADVIL;MOTRIN) 200 mg as needed. Reported on tablet 08/15/2016 acetaminophen (TYLENOL) Take 2 tablets by 0 12/22 500 mg tablet mouth every 8 hours. Last day for scheduled dosing = December 31. Then may take every 8 hours as needed. Do not take more than 4,000 mg of acetaminophen in 24 hours. ranitidine (ACID Take 75 mg by mouth 0 05/06/2013 ADJUNCT PHYSICS INSTRUCTOR) 75 mg tablet daily. letrozole (FEMARA) 2.5 Take 1 tablet by mouth 90 tablet 4 0 09/26/2012 12/20/2013 mg tabletIndications: daily. Breast cancer LORazepam (ATIVAN) 1 mg Take 1 mg by mouth 0 12/11/2014 tablet every 6 hours as needed. documented as of this encounter Procedure Notes Provider, Scanning - 06/05/2013 3:06 PM ESTAssociated Order(s): SCAN DOC: LAB documented in this encounter Plan of Treatment Not on filedocumented as of this encounter Procedures Procedure Name Priority Date/Time Associated Diagnosis Comme nts LAB SCAN 06/05/2013 3:06 PM Results f or this EST procedure are i n the results section. XR TKA FIRST PO Routine 02/11/2013 2:32 PM Pain in limb Result s for this VISIT ALIGNMENT AP EDT procedure are in LAT SKYLINE the results section. documented in this encounter Results SCAN DOC: LAB (06/05/2013 3:06 PM EST) Narrative 06/05/2013 3:06 PM EST Procedure Note Provider, Scanning - 06/05/2013 3:06 PM EST Scanning Provider MEDIA MGR SCAN EXT ORDR/RSLT XR TKA FIRST PO VISIT ALIGNMENT AP LAT SKYLINE (02/11/2013 2:32 PM EDT) Anatomical Region Laterality Modality Knee N/A Radiographic Imaging Specimen (Source) Anatomical Collection Method Collection Time Re ceived Time Location / / Volume Laterality 02/11/2013 2:32 PM EDT Narrative 02/11/2013 2:44 PM EDT Examination TKA FIRST PO VISIT STANDING ALIGNMENT AP LAT SKYLINE/RIGHT Clinical History Status Post TKA Comparison Multiple E examination since 2005. Technique Separate images of the pelvis, knees and feet were acquired in the AP projection with the patient standing. In addition to routine views of the knee, these images were stitched together to f orm a composite image of the pelvis and legs allowing for evaluation of lower ex tremity alignment in the weight bearing position. Findings Exam 1 - Standing alignment ?? The left weightbearing axis is midline a nd the right is laterally shifted. ?? Incidentally noted are prominent right h ip osteophytes. ??No pelvic tilt. Exam 2 that - Standing AP and skyline vi ews of both knees and lateral view of the right knee. ?? The bilateral total knee arthroplasties are unchanged in appearance and alignment and no radiolucencies or hardw are failure. ??There is a small right knee effusion and prepatellar soft tissu e edema. Impression Bilateral total knee arthroplasty withou t radiolucencies or hardware complications. Procedure Note Breanne Chavez MD - 02/11/2013Formatt ing of this note might be different from the original. Examination TKA FIRST PO VISIT STANDING ALIGNMENT AP LAT SKYLINE/RIGHT Clinical History Status Post TKA Comparison Multiple E examination since 2005. Technique Separate images of the pelvis, knees and feet were acquired in the AP projection with the patient standing. In addition to routine views of the knee, these images were stitched together to f orm a composite image of the pelvis and legs allowing for evaluation of lower ex tremity alignment in the weight bearing position. Findings Exam 1 - Standing alignment The left weightbearing axis is midline a nd the right is laterally shifted. Incidentally noted are prominent right h ip osteophytes. No pelvic tilt. Exam 2 that - Standing AP and skyline vi ews of both knees and lateral view of the right knee. The bilateral total knee arthroplasties are unchanged in appearance and alignment and no radiolucencies or hardw are failure. There is a small right knee effusion and prepatellar soft tissu e edema. Impression Bilateral total knee arthroplasty withou t radiolucencies or hardware complications. Ellis Lau MD IMG DX ORDERABLES documented in this encounter Visit Diagnoses Diagnosis Pain in limb documented in this encounter Care Teams Pharmacy Associate Relationship Specialty Start Date End Date Javi Izaguirre DO PCP - General 06/22/[address] [place] [address] documented as of this encounter
--- OUTSIDE RECORDS SUMMARY | 2022-04-22 01:44 | XMS_ITS | Encounter Summary ---
:1945 Author Organization [facility] [place] [address] Care Team Providers Name Role Phone Javi Izaguirre Primary Care Provider Encounter Details Date Type Department Care Team Description 07/04/2013 Hospital Encounter Mammography at [facility], [facility] Steve Cuevas MD [address] [place] [address] [address] [place], [place] [address] [place] [address] Social History Tobacco Use Types Packs/Day [...] (PRILOSEC) Take 20 mg by mouth 0 06/16/2014 20 mg capsule daily. amoxicillin (AMOXIL) Take 2,000 mg by mouth 0 12/09/2013 500 mg capsule as needed. Takes 1 hour prior to dental procedures. letrozole (FEMARA) 2.5 Take 1 tablet by mouth 90 tablet 4 0 09/26/2012 12/20/2013 mg tabletIndications: daily. Breast cancer LORazepam (ATIVAN) 1 mg Take 1 mg by mouth 0 12/11/2014 tablet every 6 hours as needed. documented as of this encounter Procedure Notes Provider, Scanning - 12/18/2013 1:59 PM EDTAssociated Order(s): SCAN DOC: LAB Provider, Scanning - 07/15/2013 1:18 PM ESTAssociated Order(s): SCAN DOC: MAMMOGRAM documented in this encounter Plan of Treatment Not on filedocumented as of this encounter Procedures Procedure Name Priority Date/Time Associated Diagnosis Comme nts LAB SCAN 12/18/2013 1:59 PM Results f or this EDT procedure are i n the results section. MAMMOGRAM SCAN 07/15/2013 1:18 PM Results for this EST procedure are i n the results section. MAMMO SCREENING CAD Routine 07/04/2013 12:57 PM R esults for this BILATERAL EST procedure are i n the results section. documented in this encounter Results SCAN DOC: LAB (12/18/2013 1:59 PM EDT) Narrative 12/18/2013 1:59 PM EDT Procedure Note Provider, Scanning - 12/18/2013 1:59 PM EDT Scanning Provider MEDIA MGR SCAN EXT ORDR/RSLT SCAN DOC: MAMMOGRAM (07/15/2013 1:18 PM EST) Narrative 07/15/2013 1:57 PM EST Procedure Note Provider, Scanning - 07/15/2013 1:18 PM EST Scanning Provider MEDIA MGR SCAN EXT ORDR/RSLT Mammo digital bilateral Screening with CAD (07/04/2013 12:57 PM EST) Anatomical Region Laterality Modality Breast Bilateral Mammography Specimen (Source) Anatomical Collection Method Collection Time Re ceived Time Location / / Volume Laterality 07/04/2013 12:57 PM EST Narrative 07/05/2013 10:23 AM EST Reason for Exam: Screening Technique: Craniocaudal (CC) and Medio-l ateral Oblique (MLO) views of both breasts obtained with direct digital cap ture. The exam was evaluated by CAD version 8. 3.17. Findings: This is a negative mammogram (ACR Catego ry 1). There is a stable fibroglandular pattern without significant change from prior studies. There is no mammographic evidence of can cer. The breasts are of scattered density. There are postsurgical changes in the Left breast. CONCLUSION: This is a NEGATIVE mammogram (ACR Catego ry 1). Routine screening mammography is recomme nded with the frequency dependent upon the patients age and breast cancer risk factors. A letter has been sent to this patient b y the breast imaging center. Procedure Note Jolene Wilcox MD - 3 Reason for Exam: Screening Technique: Craniocaudal (CC) and Medio-l ateral Oblique (MLO) views of both breasts obtained with direct digital cap ture. The exam was evaluated by CAD version 8. 3.17. Findings: This is a negative mammogram (ACR Catego ry 1). There is a stable fibroglandular pattern without significant change from prior studies. There is no mammographic evidence of can cer. The breasts are of scattered density. There are postsurgical changes in the Left breast. CONCLUSION: This is a NEGATIVE mammogram (ACR Catego ry 1). Routine screening mammography is recomme nded with the frequency dependent upon the patients age and breast cancer risk factors. A letter has been sent to this patient b y the breast imaging center. Javi TODD MAMMO ORDERABLES documented in this encounter Visit Diagnoses Not on filedocumented in this encounter Care Teams Rail Car Maintenance Mechanic Relationship Specialty Start Date End Date Dmitriy, Javi, DO PCP - General 06/22/[address] [place] [address] documented as of this encounter
--- OUTSIDE RECORDS SUMMARY | 2022-04-22 01:44 | XMS_ITS | Encounter Summary ---
:1945 Author Organization [facility] [place] [address] Care Team Providers Name Role Phone Dmitriy, Javi BURKS Primary Care Provider Encounter Details Date Type Department Care Team Description 08/19/2014 Interpretation Only Radiology at [facility] Ce nter None 1 [facility] [place] [address] Social History Tobacco Use Types Packs/Day [...] Priority Date/Time Associated Diagnosis Comme nts XR FLUORO NO RAD Routine 08/19/2014 6:34 AM Resul ts for this <1HR - RADIOLOGY EST procedure a re in USE the results section. documented in this encounter Results XR Fluoro <1Hr - Radiology Use (08/19/2014 6:34 AM EST) Anatomical Region Laterality Modality N/A Radiographic Imaging Specimen (Source) Anatomical Collection Method Collection Time Re ceived Time Location / / Volume Laterality 08/19/2014 6:34 AM EST Narrative 08/19/2014 6:34 AM EST APD Historical Result Principal Business Department Chair: ??MANOJ ??REYNALDO A C-ARM: HISTORY: ??Right total hip replacement, direct anterior. COMPARISON: ??None. FINDINGS: Fluoroscopy was provided for Dr Lau. ? ?No Radiologist was present for the procedure. ??Two image intensifier images were archived t o PACS. Laterality was not indicated on the images. ?? Total hip arthroplasty is intact. ??Please refer t o separate procedure report. Total fluoro time equals 32.7 seconds. ? ?The estimated cumulative dose is 2.03 mGy. Manoj Dockery MD ABDI/tony [id number] CC: Procedure Note Unknown - 01/28/2019Formatting of this n ote might be different from the original. APD Historical Result Principal Business Department Chair: MANOJ DOCKERY C-ARM: HISTORY: Right total hip replacement, di rect anterior. COMPARISON: None. FINDINGS: Fluoroscopy was provided for Dr Lau. N o Radiologist was present for the procedure. Two image intensifier images were archived t o PACS. Laterality was not indicated on the images. Total hip arthroplasty is intact. Please refer to separate procedure report. Total fluoro time equals 32.7 seconds. T he estimated cumulative dose is 2.03 mGy. Manoj Dockery MD ABDI/tony [id number] CC: Unknown IMG FLUORO ORDERABLES documented in this encounter Visit Diagnoses Not on filedocumented in this encounter Care Teams Dope Maintenance Worker Relationship Specialty Start Date End Date Javi Izaguirre DO PCP - General 06/22/[address] [place] [address] documented as of this encounter
--- OUTSIDE RECORDS SUMMARY | 2022-04-22 01:44 | XMS_ITS | Encounter Summary ---
:1945 Author Organization [facility] [place] [address] Care Team Providers Name Role Phone Dmitriy, Javi BURKS Primary Care Provider Reason for Visit Reason Comments Breast Cancer Encounter Details Date Type Department Care Team Description 06/16/2014 Follow-Up Hematology Oncology at Antony Cuevas MD Breast cancer, [address] unspecified laterality [address] [place] [phone] Social History Tobacco Use Types Packs/Day Years [...] Sign Reading Time Taken Comments Blood Pressure 149/89 06/16/2014 1:53 PM EST Pulse 61 06/16/2014 1:53 PM EST Temperature 36.4 ??C (97.5 ??F) 06/16/2014 1:53 PM EST Respiratory Rate 18 06/16/2014 1:53 PM EST Oxygen Saturation - - Inhaled Oxygen Concentration - - Weight 73.5 kg (162 lb) 06/16/2014 1:53 PM EST Height 165.1 cm (5' 5) 06/16/2014 1:53 PM EST Body Mass Index 26.96 06/16/2014 1:53 PM EST documented in this encounter Progress Notes Steve Cuevas MD - 06/16/2014 2:08 PM EST DIAGNOSIS:1) Stage IIA (pT1c pN1 MX), IDC, low-grade, ER/KS positive, 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 S/P 4 cycles AC and 12 weeks Taxol completed 02/07 now on Femara. 2) residual neuropathy lower extremities. 3) long-standing moderately severe arthralgias and myalgias Subjective: Sofía comes in today for followup. It is now three and a half years since her chemotherapy was discontinued. She continues to do well overall but she still has some neuropathy on the bottoms of her feet. She was put on some gabapentin and at a dosage of 300 mg 3 times a day notes she has more energy, feels well and notes less sensation of numbness in her lower feet. She is pleased with the medication at that dose level and would like to stay on it. I told her that would be fine and we would be happy to refill it. She continues on the Femara 2.5 mg daily without difficulty. She continues to have some arthritis pain and is looking into having bilateral hip replacement with the right hip being done first. After her hip is doing better her plans are to go on a vacation with her family in [place] which they have done on several occasions. Otherwise, review of systems is negative. Past medical history and social history are [...] distention. Genitourinary: Negative. Musculoskeletal: Minimal knee pain. Skin: Clear. 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 Hematological: Negative for adenopathy. Head: Normocephalic, without obvious abnormality, atraumatic Eyes: PERRL, conjunctiva/corneas clearboth eyes Ears: Nares normal she has no cerumen Nose: Clear Throat: Clear Neck: Supple, Back: Symmetric, Lungs: Clear to auscultation bilaterally, respirations unlabored Chest Wall: No tenderness or deformity and she has no dominant masses in either breast and both axilla were clear Heart: Regular rate and rhythm, S1, S2 normal, no murmur, rub or gallop Abdomen: Soft, non-tender, bowel sounds active all four quadrants, y Extremities: Extremities normal, atraumatic, no cyanosis or edema Skin: Skin color, texture, turgor normal, no rashes or lesions Lymph nodes: Cervical, supraclavicular, and axillary nodes normal Neurologic: Normal Review of the patient's blood counts shows a white count of 6.5, hemoglobin 14.6, hematocrit 43.8, platelet count 307,000, absolute neutrophil count is 4.36. CMP is normal with an ALP of 86, a calcium of 8.6, normal creatinine at 0.8 and normal liver tests. Assessment/Plan: Sofía is doing exceptionally well and has no evidence of recurrent cancer. She is tolerating Femara well and will continue on for another year and a half on that medication. She does have her mammograms due in June and we will make sure those are ordered. We will see her back in six months with a CBC and CMP, and she will call if issues or problems develop in the interim. documented in this encounter Plan of Treatment Not on filedocumented as of this encounter Procedures Procedure Name Priority Date/Time Associated Diagnosis Comme nts LAB SCAN 12/09/2014 12:00 AM EDT documented in this encounter Results SCAN DOC: LAB (12/09/2014 12:00 AM EDT) Narrative This result has an attachment that is no t available. Scanning Provider MEDIA MGR SCAN EXT ORDR/RSLT documented in this encounter Visit Diagnoses Diagnosis Breast cancer, unspecified laterality documented in this encounter Care Teams Tenant Relations Coordinator Relationship Specialty Start Date End Date Javi Izaguirre DO PCP - General 06/22/[address] [place] [address] documented as of this encounter
--- OUTSIDE RECORDS SUMMARY | 2022-04-22 01:44 | XMS_ITS | Encounter Summary ---
:1945 Author Organization [facility] Address [facility] [place] [address] Care Team Providers Name Role Phone Javi Izaguirre DO Primary Care Provider Encounter Details Date Type Department Care Team Description 05/03/2013 Orders Only Orthopaedics at [facility] Ellis Lau MD [facility] [address] [place] [address] [address] [phone] [place], [place] [address] (Wo rk) Social History Tobacco Use Types [...] on filedocumented in this encounter Care Teams Vice President Corporate Communications Relationship Specialty Start Date End Date Javi Izaguirre DO PCP - General 06/22/[address] [place], [place] [address] documented as of this encounter
--- OUTSIDE RECORDS SUMMARY | 2022-04-22 01:44 | XMS_ITS | Encounter Summary ---
:1945 Author Organization [facility] [place] [address] Care Team Providers Name Role Phone Javi Izaguirre DO Primary Care Provider Encounter Details Date Type Department Care Team Description 12/09/2013 Hospital Encounter XRay at [facility] Right knee pain 1 [facility] [place] [address] Social History Tobacco Use Types Packs/Day [...] mouth 0 06/16/2014 20 mg capsule daily. letrozole (FEMARA) 2.5 Take 1 tablet by mouth 90 tablet 4 0 09/26/2012 12/20/2013 mg tabletIndications: daily. Breast cancer LORazepam (ATIVAN) 1 mg Take 1 mg by mouth 0 12/11/2014 tablet every 6 hours as needed. documented as of this encounter Plan of Treatment Not on filedocumented as of this encounter Procedures Procedure Name Priority Date/Time Associated Comments Diagnosis XR KNEE DIAGNOSTIC 1 Routine 12/09/2013 1:19 PM Right knee juani n Results for this OR 2 VIEW EDT procedure are i n the results section. documented in this encounter Results XR knee diagnostic 1 or 2 view [...] joint effusion. Impression No significant interval change gayle dAlvaro Ellis Lau MD IMG DX ORDERABLES documented in this encounter Visit Diagnoses Diagnosis Right knee pain Pain in joint, lower leg documented in this encounter Care Teams Funeral Home Associate Relationship Specialty Start Date End Date Javi Izaguirre DO PCP - General 06/22/[address] [place] [address] documented as of this encounter
--- OUTSIDE RECORDS SUMMARY | 2022-04-22 01:44 | XMS_ITS | Encounter Summary ---
:1945 Author Organization [place] [address] Care Team Providers Name Role Phone DmitriyJavi agrawal Primary Care Provider Reason for Visit Reason Comments Aftercare Of Tjr s/p right tka rev dos 3 Encounter Details Date Type Department Care Team Description 05/06/2013 Office Visit Orthopaedics at [facility] Ellis Lau MD [address] [facility] [place] [address] Knee joint replacement by other means (P rimary Dx); [facility] Rajendra Hernandez PA [facility] [address] S/[place] [address] Social History Tobacco Use Types Packs/Day [...] Sign Reading Time Taken Comments Blood Pressure 133/80 05/06/2013 8:32 AM EDT Pulse 73 05/06/2013 8:32 AM EDT Temperature - - Respiratory Rate - - Oxygen Saturation - - Inhaled Oxygen Concentration - - Weight 70.7 kg (155 lb 12.8 oz) 05/06/2013 8:32 AM EDT Height 166.4 cm (5' 5.5) 05/06/2013 8:32 AM EDT Body Mass Index 25.53 05/06/2013 8:32 AM EDT documented in this encounter Progress Notes Rajendra Hernandez PA - 05/07/2013 7:31 AM EDT Subjective: Sofía Mcdonald is here for followup after right total knee replacement surgery. The patient is not having any pain. The patient denies fever, wound drainage, increasing redness, pus, increasing pain, increasing swelling. Problems reported: none She is ambulating with a normal gait and no assistive devices. ROS: Denies fevers, chills, night sweats, nausea, or vomiting. Objective: General : active , alert, appears stated age and cooperative Gait: Normal. Incision: Well healed with no erythema Tenderness: none Effusion: no DVT Evaluation: No evidence of DVT seen on physical exam. I have made the following determinations: Post Op right Knee Exam: Gait Abnormality: Normal Knee ROM: Extension:0 Flexion: 120 Alignment: 0-4 degrees Neutral Stability: A/P Translation <5mm Varus (lateral stability) <5mm Valgus (medial stability) <5mm Extension La degrees or less Patella Tracking: Normal Pulses Palpable: Left PT:Yes Left DP:Yes Motor/Sensory: Distal Motor: Normal Distal Sensory: Normal Quadriceps Strength:5 Imaging None indicated Assessment: Status post right total knee arthroplasty. Doing well postoperatively. Plan: activities as tolerated We discussed the appropriate precautions surrounding dental prophylaxis. Call the office for a prescription prior to any further dental work for the lifetime of the joint replacement. We also discussedmaintaining good foot care and giving prompt attention to any source of infection throughout the body including foot ulcers and urinary tract infections. Follow up: 1 year. for bilateral knees with x-ray QUITA GONZALEZ documented in this encounter Plan of Treatment Not on filedocumented as of this encounter Visit Diagnoses Diagnosis Knee joint replacement by other means - Primary S/P knee replacement Knee joint replacement by other means documented in this encounter Care Teams Sand Technician Relationship Specialty Start Date End Date Javi Izaguirre DO PCP - General 06/22/[address] [place] [address] documented as of this encounter
--- OUTSIDE RECORDS SUMMARY | 2022-04-22 01:44 | XMS_ITS | Encounter Summary ---
:1945 Author Organization [facility] [place] [address] Care Team Providers Name Role Phone Dmitriy Javi BURKS Primary Care Provider Encounter Details Date Type Department Care Team Description 12/09/2013 Hospital Encounter XRay at [facility] Bilateral hip pain 1 [place] [address] Social History Tobacco Use Types Packs/Day [...] 4,000 mg of acetaminophen in 24 hours. UNABLE TO FIND Reported on 08/15/2016 0 03/22/2018 amoxicillin (AMOXIL) Take 4 capsules 1 hour 20 capsule 0 06/201402/12/2020 500 mg capsule prior to dental procedures or cleanings. omeprazole (PRILOSEC) Take 20 mg by mouth 0 06/16/2014 20 mg capsule daily. letrozole (FEMARA) 2.5 Take 1 tablet by mouth 90 tablet 4 0 09/26/2012 12/20/2013 mg tabletIndications: daily. Breast cancer LORazepam (ATIVAN) 1 Take 1 mg by mouth 0 12/11/2014 mg tablet every 6 hours as needed. documented as of this encounter Plan of Treatment Not on filedocumented as of this encounter Procedures Procedure Name Priority Date/Time Associated Diagnosis Comme nts XR PELVIS AP AND 2 Routine 12/09/2013 1:20 PM Bilateral hip pa in Results for this VIEWS BOTH HIPS EDT procedure ar e in the results section. documented in this encounter Results XR pelvis AP and [...] arthropathy. No definite change on the left. Authorizing Provider Result Christy Lau MD IMG DX ORDERABLES documented in this encounter Visit Diagnoses Diagnosis Bilateral hip pain Pain in joint, pelvic region and thigh documented in this encounter Care Teams Sound Effects Supervisor Relationship Specialty Start Date End Date Javi Izaguirre DO PCP - General 06/22/[address] [place] [address] documented as of this encounter
--- OUTSIDE RECORDS SUMMARY | 2022-04-22 01:44 | XMS_ITS | Encounter Summary ---
:1945 Author Organization [facility] [place] [address] Care Team Providers Name Role Phone Dmitriy, Javi BURKS Primary Care Provider Encounter Details Date Type Department Care Team Description 09/18/2014 Interpretation Only Radiology at [facility] Ce nter None 1 [facility] [place] [address] Social History Tobacco Use Types Packs/Day [...] nts XR PELVIS AND HIP 2 Routine 09/18/2014 1:21 PM Re sults for this VIEWS RIGHT EST procedure are i n the results section. documented in this encounter Results XR Pelvis w AP & Lat Hip Right (09/18/2014 1:21 PM EST) Anatomical Region Laterality Modality Pelvis, Hip Right Radiographic Imaging Specimen (Source) Anatomical Collection Method Collection Time Re ceived Time Location / / Volume Laterality 09/18/2014 1:21 PM EST Narrative 09/18/2014 1:21 PM EST APD Historical Result Principal Folding Rules Printing Machine Operator: ??MARY ?JULES PELVIS AND RIGHT HIP: HISTORY: ??Followup hip replacement, Jul. AP view of the pelvis with frog-leg late ral view of the right hip demonstrates a right total hip prosthesis in anatomic alignment in the femoral shaft and acetabulum. ??Pubic rami are unremarkable. Left hip appears grossly unremarkable. ? ?There is a region of periosteal reaction, possibly a tug lesion just inferior to the left gre ater trochanter. Clinical correlation is advised. IMPRESSION: (1) Anatomic alignment statu s post right total hip replacement. ??(2) Periosteal reaction of the left proximal femur infe rior to the greater trochanter. ??Additional imaging may be useful. Mary Hook MD OLIVIER/tony [id number] CC: Procedure Note Unknown - 01/28/2019Formatting of this n ote might be different from the original. APD Historical Result Principal Folding Rules Printing Machine Operator: MARY HOOK PELVIS AND RIGHT HIP: HISTORY: Followup hip replacement, 2014. AP view of the pelvis with frog-leg late ral view of the right hip demonstrates a right total hip prosthesis in anatomic alignment in the femoral shaft and acetabulum. Pubic rami are unremarkable. Left hip appears grossly unremarkable. T here is a region of periosteal reaction, possibly a tug lesion just inferior to the left gre ater trochanter. Clinical correlation is advised. IMPRESSION: (1) Anatomic alignment statu s post right total hip replacement. (2) Periosteal reaction of the left proximal femur infe rior to the greater trochanter. Additional imaging may be useful. Mary Hook MD OLIVIER/tony [id number] CC: Unknown IMG DX ORDERABLES documented in this encounter Visit Diagnoses Not on filedocumented in this encounter Care Teams Building Rigger Relationship Specialty Start Date End Date Javi Izaguirre DO PCP - General 06/22/10 [address] [facility] [address] [place] [address] documented as of this encounter
--- OUTSIDE RECORDS SUMMARY | 2022-04-22 01:44 | XMS_ITS | Encounter Summary ---
:1945 Author Organization [facility] Address [address] [facility] [place] [address] Care Team Providers Name Role Phone Dmitriy Javi BURKS Primary Care Provider Reason for Visit Reason Comments Aftercare Of Tjr Right TKA REV 12/21/12 Encounter Details Date Type Department Care Team Description 02/11/2013 Office Visit Orthopaedics [place] [facility] [place] Lau, S/P knee replacement [facility] (Primary Dx) [address] [place] [address] [phone] [place] [address] Social History Tobacco Use Types Packs/Day Years Used Date Former Smoker Smokeless Tobacco: Never Used Alcohol Use Standard Drinks/Week Comments Yes 21 (1 standard drink = 0.6 oz pure alcoh ol) Sex Assigned at Date Recorded Female 03/31/2021 3:33 PM EDT documented as of this encounter Last Filed Vital Signs Vital Sign Reading Time Taken Comments Blood Pressure 116/76 02/11/2013 3:53 PM EDT Pulse 66 02/11/2013 3:53 PM EDT Temperature - - Respiratory Rate - - Oxygen Saturation - - Inhaled Oxygen Concentration - - Weight 67.1 kg (148 lb) 02/11/2013 3:53 PM EDT Height 166.4 cm (5' 5.5) 02/11/2013 3:53 PM EDT Body Mass Index 24.25 02/11/2013 3:53 PM EDT documented in this encounter Progress Notes Rajendra Hernandez PA - 02/12/2013 7:31 AM EDT Patient Name: Sofía Mcdonald : 67 y.o. Case Date: 12-20-12 Surgeon: Elda Lau Procedure: right total knee revision poly exchange and synovectomy HPI: Sofía Mcdonald is a very pleasant 67 y.o. female who presents for a 6 weeks follow-up of the above procedure. The patient has been doing very well and her pain is markedly improved over preoperative status. No fevers, chills, nausea, vomiting, or symptoms of infection. Sofía has been ambulating with no assistive device and working with PT. ROS: Denies fevers, chills, night sweats, nausea, or vomiting. Physical Exam: Well-appearing female in no acute distress. Alert and Oriented x 3 and answers all questions appropriately. The incision is well healed, with no signs of infection. Post Op Right Knee Exam: Gait Abnormality: Antalgic Knee ROM: Extension:0 Flexion: 120 Alignment: 0-4 degrees Neutral Stability: A/P Translation <5mm. Varus <5mm Valgus <5mm Extension La degrees or less Patella Tracking: Normal Pulses Palpable: Right PT: Yes Right DP:Yes Motor/Sensory: Distal Motor: Normal Distal Sensory: Normal Quadriceps Strength: 5 X-RAYS: Multiple radiographic views were obtained at my request and reviewed with the patient. X-rays show a well-placed prosthesis with no evidence of fracture or loosening. ASSESSMENT/PLAN: 6 weeks post-op and doing well. Continue weightbearing as tolerated and working on range of motion, and we will see her back in 8 weeks for repeat examination. No x-rays will be neededat that time. Patient may return to normal activities as her pain and function allow. We discussed the appropriate precautions surrounding dental prophylaxis. I stressed that she should avoid elective dental procedures for the first 6 months after surgery and then call the office for a prescription prior to any further dental work for the lifetime of the joint replacement. We also discussed maintaining good foot care and giving prompt attention to any source of infection throughout the body including foot ulcers and urinary tract infections. Patient was seen and evaluated with Dr Lau Signed: QUITA GONZALEZ documented in this encounter Plan of Treatment Not on filedocumented as of this encounter Visit Diagnoses Diagnosis S/P knee replacement - Primary Knee joint replacement by other means documented in this encounter Care Teams Buffer Machine Relationship Specialty Start Date End Date Javi Izaguirre DO PCP - General 06/22/[address] [place] [address] documented as of this encounter
--- OUTSIDE RECORDS SUMMARY | 2022-04-22 01:44 | XMS_ITS | Encounter Summary ---
:1945 Author Organization [facility] [place] [address] Care Team Providers Name Role Phone Javi Izaguirre DO Primary Care Provider Reason for Visit Reason Onset Date Comments Medication Refill 06/27/2014 Encounter Details Date Type Department Care Team Description 06/27/2014 Refill Hematology Oncology at Alejandra Flynn RN Breast cancer, [facility] unspecified laterality [address] [place] [phone] Social History Tobacco Use Types Packs/Day Years [...] laterality documented in this encounter Care Teams Traffic Lieutenant Relationship Specialty Start Date End Date Javi Izaguirre DO PCP - General 06/22/[address] [place], [place] [address] documented as of this encounter
--- OUTSIDE RECORDS SUMMARY | 2022-04-22 01:44 | XMS_ITS | Encounter Summary ---
:1945 Author Organization [facility] [address] Care Team Providers Name Role Phone Javi Izaguirre Primary Care Provider Encounter Details Date Type Department Care Team Description 07/04/2014 Hospital Encounter Mammography at [facility], [facility] Steve Cuevas MD [address] [place] [address] [address] [place], [place] [address] [place] [address] Social History Tobacco Use Types Packs/Day [...] 0 (ADVIL;MOTRIN) 200 mg as needed. Reported tablet on 08/15/2016 acetaminophen Take 2 tablets by 0 12/22/2012 (TYLENOL) 500 mg mouth every 8 hours. tablet Last day for scheduled dosing = December 31. Then may take every 8 hours as needed. Do not take more than 4,000 mg of acetaminophen in 24 hours. gabapentin (NEURONTIN) Take 3 capsules by 270 capsule 3 06/0112/11/2014 100 mg mouth 3 times daily. CapsuleIndications: Breast cancer, unspecified laterality letrozole (FEMARA) 2.5 Take 1 tablet by 90 tablet 4 014 03/05/2015 mg tabletIndications: mouth daily. Breast cancer UNABLE TO FIND Reported on 08/15/2016 0 03/22/2018 amoxicillin (AMOXIL) Take 4 capsules 1 20 capsule 0 12/10/19 14 02/12/2020 500 mg capsule hour prior to dental procedures or cleanings. LORazepam (ATIVAN) 1 Take 1 mg by mouth 0 12/11/2014 mg tablet every 6 hours as needed. documented as of this encounter Plan of Treatment Not on filedocumented as of this encounter Procedures Procedure Name Priority Date/Time Associated Diagnosis Comme nts MAMMO SCREENING CAD Routine 07/04/2014 2:20 PM Re sults for this BILATERAL EST procedure are i n the results section. documented in this encounter Results Mammo digital bilateral Screening with CAD (07/04/2014 2:20 PM EST) Anatomical Region Laterality Modality Breast Bilateral Mammography Specimen (Source) Anatomical Collection Method Collection Time Re ceived Time Location / / Volume Laterality 07/04/2014 2:20 PM EST Narrative 07/07/2014 2:01 PM EST BILATERAL MAMMOGRAPHY ?? REASON FOR EXAM: Screening ?? TECHNIQUE: Cranio-caudal (CC) and mediol ateral oblique (MLO) views of both breasts obtained with direct digital cap ture. The exam was evaluated by CAD Version 8.3.17. ?? FINDINGS: This is a negative mammogram ( ACR Category 1). There is a stable fibroglandular pattern without significa nt change as compared to prior studies. There is no mammographic evidence of can cer. ? The breasts are of scattered density. ? There are post-surgical changes in the L eft breast. ? CONCLUSION ?? This is a NEGATIVE mammogram (ACR Catego ry 1). Routine screening mammography is recommended with the frequency dependent on the patient's age and breast cancer risk factors. ?? A letter has been sent to this patient [facility]. Procedure Note Laurie Li MD - 2013 BILATERAL MAMMOGRAPHY REASON FOR EXAM: Screening TECHNIQUE: Cranio-caudal (CC) and mediol ateral oblique (MLO) views of both breasts obtained with direct digital cap ture. The exam was evaluated by CAD Version 8.3.17. FINDINGS: This is a negative mammogram ( ACR Category 1). There is a stable fibroglandular pattern without significa nt change as compared to prior studies. There is no mammographic evidence of can cer. The breasts are of scattered density. There are post-surgical changes in the L eft breast. CONCLUSION This is a NEGATIVE mammogram (ACR Catego ry 1). Routine screening mammography is recommended with the frequency dependent on the patient's age and breast cancer risk factors. A letter has been sent to this patient b y [facility]. Steve Cuevas MD IMG MAMMO ORDERABLES documented in this encounter Visit Diagnoses Not on filedocumented in this encounter Care Teams Sanitation Supervisor Relationship Specialty Start Date End Date Javi Izaguirre DO PCP - General 06/22/[address] [place] [address] documented as of this encounter
--- OUTSIDE RECORDS SUMMARY | 2022-04-22 01:44 | XMS_ITS | Encounter Summary ---
:1945 Author Organization [facility] [address] Care Team Providers Name Role Phone Dmitriy, Javi BURKS Primary Care Provider Reason for Visit Reason Comments Breast Cancer Encounter Details Date Type Department Care Team Description 12/11/2014 Follow-Up Hematology/Oncology at Antony Cuevas MD Malignant neoplasm of [address] macias breast [address] [place] [phone] Social History Tobacco Use Types Packs/Day Years [...] Sign Reading Time Taken Comments Blood Pressure 159/76 12/11/2014 1:00 PM EDT Pulse 61 12/11/2014 1:00 PM EDT Temperature 36.6 ??C (97.9 ??F) 12/11/2014 1:00 PM EDT Respiratory Rate 18 12/11/2014 1:00 PM EDT Oxygen Saturation 100% 12/11/2014 1:00 PM EDT Inhaled Oxygen Concentration - - Weight 72.1 kg (159 lb) 12/11/2014 1:00 PM EDT Height 165.1 cm (5' 5) 12/11/2014 1:00 PM EDT Body Mass Index 26.46 12/11/2014 1:00 PM EDT documented in this encounter Progress Notes Steve Cuevas MD - 12/11/2014 3:10 PM EDT DIAGNOSIS:1) Stage IIA (pT1c pN1 MX), IDC, low-grade, ER/AL positive, 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 S/P 4 cycles AC and 12 weeks Taxol completed 02/07 now on Femara. 2) residual neuropathy lower extremities. 3) long-standing moderately severe arthralgias and myalgias Subjective: Sofía comes in today for her four-year followup on her breast cancer. She has gone off the Neurontin but continues to have problems with neuropathy on the bottom of her feet. She was hopeful she could go off the Arimidex and that might help that problem, but we discussed that in detail. Since I last saw her, she has had a hip replacement and is getting better with that. Overall she said it was a rough winter. Otherwise, though, she is not having much in the way of hot flashes, no other symptoms. She has some chronic arthritis but nothing worse, and her symptoms were present before starting the aromatase inhibitor. Past medical history and social history are [...] axillary nodes normal Neurologic: Normal Review of her laboratory shows a white count of 7.48, hemoglobin of 14, hematocrit at 42.4, and a platelet count of 284. CMP shows normal ALP at 89, creatinine of 0.7, calcium of 8.4, and normal liver tests. Assessment/Plan: Sofía is doing well and tolerating the aromatase inhibitor well. I did go over the potential benefit of taking an aromatase inhibitor for five years, which is really actually a somewhat greater benefit than she got even from the chemotherapy. That being said, she will continue on the medication and will be taking it for another year but at that point I would be fine with discontinuing it. I did give her permission to try stopping the medication for a short time, but I told her I would not do it when she was trying other things so that it would be clear-cut whether or not that was causing her any symptoms or problems. On the other hand, overall I would prefer she not do that. We will see her back in six months' time with lab. She will call if there are issues or problems in the interim. She will continue on Arimidex 1 mg daily. documented in this encounter Plan of Treatment Not on filedocumented as of this encounter Procedures Procedure Name Priority Date/Time Associated Diagnosis Comme nts LAB SCAN 05/28/2015 12:00 AM EDT documented in this encounter Results SCAN DOC: LAB (05/28/2015 12:00 AM EDT) Narrative This result has an attachment that is no t available. Scanning Provider MEDIA MGR SCAN EXT ORDR/RSLT documented in this encounter Visit Diagnoses Diagnosis Malignant neoplasm of left breast Malignant neoplasm of breast (female), u nspecified site documented in this encounter Care Teams Consultant Nurse Relationship Specialty Start Date End Date Javi Izaguirre DO PCP - General 06/22/10 [address] [place] [address] documented as of this encounter
--- OUTSIDE RECORDS SUMMARY | 2022-04-22 01:44 | XMS_ITS | Encounter Summary ---
:1945 [address] [facility] [place] [address] Care Team Providers Name Role Phone Javi Izaguirre Primary Care Provider Encounter Details Date Type Department Care Team Description 12/24/2012 Anti-Coag Telephone Orthopaedics at [facility] Johnny Colon Visit [facility] [place] [phone] ORTHOPAEDIC SURGERY [place], [place] [address] Social History Tobacco Use Types Packs/Day Years Used Date Former Smoker Smokeless Tobacco: Never Used Alcohol Use Standard Drinks/Week Comments Yes 21 (1 standard drink = 0.6 oz pure alcoh ol) Sex Assigned at Date Recorded Female 03/31/2021 3:33 PM EDT documented as of this encounter Progress Notes Johnny Colon MD - 12/24/2012 9:57 AM EDT Called with INR of 1.9. Sofía will continue to take 5mg Coumadin with a recheck on . documented in this encounter Plan of Treatment Not on filedocumented as of this encounter Procedures Procedure Name Priority Date/Time Associated Diagnosis Comme nts POCT INR Routine 12/24/2012 Results for thi s procedure are in the resu lts section. documented in this encounter Results (ABNORMAL) POCT INR (12/24/2012) P athologist Signature POC INR 1.9 (A) 0.9 - 1.1 Historical Provider POINT OF CARE TEST ORDERABLE S documented in this encounter Visit Diagnoses Not on filedocumented in this encounter Care Teams Radiology Equipment Servicer Relationship Specialty Start Date End Date Javi Izaguirre DO PCP - General 06/22/[address] [place] [address] documented as of this encounter
--- OUTSIDE RECORDS SUMMARY | 2022-04-22 01:44 | XMS_ITS | Encounter Summary ---
:1945 Author Organization [facility] Address [facility] [address] [place] [address] Care Team Providers Name Role Phone Javi Izaguirre DO Primary Care Provider Encounter Details Date Type Department Care Team Description 12/27/2012 Anti-Coag Orthopaedics at [facility] Radha Sandoval, Slava wear of Telephone Visit [facility] RN right knee prosthesis Drive (Primary Dx) [place] [id number] Social History Tobacco Use Types Packs/Day Years Used Date Former Smoker Smokeless Tobacco: Never Used Alcohol Use Standard Drinks/Week Comments Yes 21 (1 standard drink = 0.6 oz pure alcoh ol) Sex Assigned at Date Recorded Female 03/31/2021 3:33 PM EDT documented as of this encounter Progress Notes Radha Sandoval, RN - 12/27/2012 1:31 PM EDT Anticoagulation Therapy Telephone Note: Sofía Mcdonald 1945 Surgeon:Sid Indication: DVT Prophylaxis S/P Joint Replacement Duration of treatment: 4 weeks Anticipated End Date:January 18, STOP the Coumadin INR:2.7 Drawn by:Sarai PATIÑO Next INR Due:12/31/12 Patient Contact Preference: Message left on answering machine E-Mail: xx Spoke with patient Patient states she has been taking 5 mg Coumadin each night as directed by an ortho resident since discharge on 12/22/12. She states she had her INR drawn on 12/23 INR 1.6, and another draw on 12/24 INR 1.9. Warfarin dose : Increased xx Decreased Maintained Bleeding: Epistaxis Black tarry stools Gingival bleeding Abnormal bruising Hematuria surgical site Hemoptysis x No bleeding / bruising reported Recent medication changes: Yes x No Have you missed a dose of Coumadin? Yes x No Dietary Changes: Yes x No documented in this encounter Plan of Treatment Not on filedocumented as of this encounter Procedures Procedure Name Priority Date/Time Associated Diagnosis Comme nts EXTERNAL LAB RESULTS Routine 12/27/2012 Results for this procedure are i n the results section . 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
--- OUTSIDE RECORDS SUMMARY | 2022-04-22 01:44 | XMS_ITS | Encounter Summary ---
:1945 Author Organization [facility] [address] Care Team Providers Name Role Phone Javi Izaguirre Primary Care Provider Encounter Details Date Type Department Care Team Description 07/01/2014 Orders Only Radiology and Cardiology Apd Conversion, Results Results Provider, [address] [place] [address] Social History Tobacco Use Types Packs/Day Years [...] Name Priority Date/Time Associated Diagnosis Comme nts TYPE AND SCREEN Routine 07/01/2014 Results for this ([facility]) procedure a re in the results section . documented in this encounter Results (ABNORMAL) Type and screen (LEB/CGP) (07/01/2014) [facility] Method Time Signature AB Screen NEGATIVE NEGATIVE [facility] Interp (External CONVERSION Lab) Rh NEGATIVE [facility] (External CONVERSION Lab) ABO Grouping A (External ABO [facility] Lab) CONVERSION Specimen (Source) Anatomical Location Collection Method / Collectio n Time Received Time / Laterality Volume 07/01/2014 Results Provider Apd Conversion MD BLOOD BANK ORDERABL ES Performing Organization Address City/State/ZIP Code Phon e Number [facility] CONVERSION [address] [place], [place] [address] [facility] documented in this encounter Visit Diagnoses Not on filedocumented in this encounter Care Teams R Developer Relationship Specialty Start Date End Date Javi Izaguirre DO PCP - General 06/22/[address] [place] [address] documented as of this encounter
--- OUTSIDE RECORDS SUMMARY | 2022-04-22 01:44 | XMS_ITS | Encounter Summary ---
:1945 Author Organization [facility] [place] [address] Care Team Providers Name Role Phone Javi Izaguirre DO Primary Care Provider Reason for Visit Reason Onset Date Comments Other 12/26/2012 pain Encounter Details Date Type Department Care Team Description 12/26/2012 Telephone Orthopaedics at [facility] Radha Sandoval, RN Other (pain) [place] [phone] Social History Tobacco Use Types Packs/Day Years Used Date Former Smoker Smokeless Tobacco: Never Used Alcohol Use Standard Drinks/Week Comments Yes 21 (1 standard drink = 0.6 oz pure alcoh ol) Sex Assigned at Date Recorded Female 03/31/2021 3:33 PM EDT documented as of this encounter Miscellaneous Notes Telephone Encounter - Radha Sandoval RN - 12/26/2012 4:30 PM EDT Operations: 12/21/2012 LEFT TOTAL KNEE REVISION ARTHROPLASTY, POLYETHYLENE LINER ONLY with COMPLETE SYNOVECTOMY AND PATELLAR CHEILECTOMY (LATERAL FACET) Sofía Mcdonald called stating she had a difficult night and questions if she should be having pain especially at night. Discussed with patient that she had surgery on 12/21/12 and that this is common. Instructed patient to ice, elevate and take pain medication as directed. Sofía also stated she might start out patient therapy , she has not seen a therapist from the [facility] as of yet and is concerned. Instructed patient to call the [facility] , if they do not come, patient has an order for out patient Physical therapy Patient is acceptable with the plan of care and will call with questions or concerns. documented in this encounter Plan of Treatment Not on filedocumented as of this encounter Visit Diagnoses Not on filedocumented in this encounter Care Teams Physical Plant Manager Relationship Specialty Start Date End Date Javi Izaguirre DO PCP - General 06/22/[address] [place], [place] [address] documented as of this encounter
--- OUTSIDE RECORDS SUMMARY | 2022-04-22 01:44 | XMS_ITS | Encounter Summary ---
:1945 Author Organization [facility] [place] [address] Care Team Providers Name Role Phone Dmitriy, Javi BUKRS Primary Care Provider Encounter Details Date Type Department Care Team Description 04/17/2014 Orders Only Hematology Oncology at [facility], [facility] Clarissa Khan RN unspecified laterality [address] (Primary Dx) [place] [address] Social History Tobacco Use Types Packs/Day Years Used Date Former Smoker Quit: 12/12/18 82 Smokeless Tobacco: Never Used Comments: remote hx of smoking. Alcohol Use Standard Drinks/Week Comments Yes 7 (1 standard drink = 0.6 oz pure alcoho l) Sex Assigned at Date Recorded Female 03/31/2021 3:33 PM EDT documented as of this encounter Progress Notes Clarissa Martinez RN - 04/17/2014 2:18 PM EDT Patient calls clinic today requesting new Rx for her gabapentin. She reports that she is taking 200mg (100mg tablets x 2) three times daily with very good effect. States it's really helping the pain in my feet. She requests a new Rx because based on the increase in what she is taking, it is too early to fill the previous Rx. Discussed with Sofía Medina APRN - new Rx sent to [facility] for 90-day supply as patient requests. documented in this encounter Plan of Treatment Not on filedocumented as of this encounter Visit Diagnoses Diagnosis Breast cancer, unspecified laterality - Primary documented in this encounter Care Teams Printer Apprentice Relationship Specialty Start Date End Date Javi Izaguirre DO PCP - General 06/22/[address] [place] [address] [address] [place] [address] documented as of this encounter
--- OUTSIDE RECORDS SUMMARY | 2022-04-22 01:44 | XMS_ITS | Encounter Summary ---
:1945 Author Organization [place] [address] Care Team Providers Name Role Phone Javi Izaguirre Primary Care Provider Encounter Details Date Type Department Care Team Description 12/12/2013 Hospital Encounter Gastroenterology at [facility] Fernanda Marcano, [facility] [place] [address] [facility] [phone] [facility] [place], [place] [address] Social History Tobacco Use Types [...] Sign Reading Time Taken Comments Blood Pressure 147/73 12/12/2013 11:45 AM EDT Pulse 59 12/12/2013 11:45 AM EDT Temperature - - Respiratory Rate 18 12/12/2013 11:45 AM EDT Oxygen Saturation 98% 12/12/2013 11:45 AM EDT Inhaled Oxygen Concentration - - Weight 70.3 kg (155 lb) 12/12/2013 10:28 AM EDT Height 165.1 cm (5' 5) 12/12/2013 10:28 AM EDT Body Mass Index 25.79 12/12/2013 10:28 AM EDT documented in this encounter Discharge Instructions Discharge InstructionsCordell Sheila L, RN - 12/12/2013 11:46 AM EDT Colonoscopy and polyp removal What to expect after the procedure You may feel a little more gassy or bloated than usual, this is normal. You should expect the return of normal bowel function in the next 2 to 3 days. Because some polyps were removed, you may see a little blood with the next few bowel movements, this should be a small amount ( less than a few tablespoons) and will resolve on it's own. ACTIVITY Because of the sedation that you received Your judgement and reaction time are effected ?? Go home and rest for the remainder for the day. You may resume your normal activities tomorrow ?? Change from one position to the next slowly because you may lose your balance unexpectedly. ?? Be careful on stairs, as you may be unsteady. ?? Avoid strenuous activity for 48 to 72 hrs FOR THE NEXT 24 HRS ?? DO NOT DRIVE OR OPERATE MACHINERY ?? DO NOT DRINK ALCOHOLIC BEVERAGES ?? DO NOT SIGN LEGAL DOCUMENTS ?? If you are a smoker: DO NOT SMOKE WHILE YOU ARE ALONE Diet ?? Start by eating small portions of foods that ordinarily will not upset your stomach, avoid gas producing foods for the next few days. ?? Be gentle with what you choose to start with ?? A soft diet may be helpful for the next 3 days as this may help to keep your stools soft. ?? Drink plenty of fluids ( unless your doctor has told you not to). Medicines Avoid medicines that influence the way your blood clots for the next week. These would include anti-inflammatory medicine, such as ibuprofen( Advil, Motrin) and naproxen ( Aleve). If you need something for discomfort, Tylenol (Acetaminophen) is safe if used as directed. Your Doctor will tell you whento restart your prescribed blood thinners The IV site-- slight tenderness, or redness is normal, you can use warm compresses if you get concerned. If the tenderness +/or redness increases or foul drainage and a red streak occurs, please contact your PCP immediately. When should you call for help? Call 911 anytime you think you may need emergency care. For example If you pass out (loss of consciousness) If you pass maroon or bloody stools If you have severe belly pain Call your healthcare provider or seek immediate medical care if: Your stools are black or tar like Your stools have streaks of blood that is more pronounced with each BM You have belly pain, or your belly is swollen and firm You vomit You have a fever You are very dizzy Watch closely for changes in your health, and be sure to contact your doctor if you have any problems. Your Doctor will let you know when you will need your next colonoscopy. The results of your test andyour risk for colorectal cancer will help your doctor decide how often you need to be checked. Monday[facility]Monday Clinic [phone] 8a-5p Same Day Endo [phone] 7a-8p Otherwise contact [phone] and ask to speak to the refining equipment operator pellet preparation operator Follow up care is a herman part of your treatment and safety. Be sure to make and go to all appointments, and call your doctor if you are having problems. Discharge instructions reviewed with patient who expresses understanding documented in this encounter Medications at Time [...] as needed. documented as of this encounter H&P Notes Fernanda Marcano MD - 12/12/2013 11:04 AM EDT Gastroenterology and Hepatology Pre-Procedure History and Physical Exam Procedure: Colonoscopy Indication: 68F with history of one time episode of hematochezia, no further episodes. Last colonoscopy 9yrs ago, normal to cecum. Patient Active Problem List Diagnosis Code ??? Breast cancer 174.9 ??? S/P Left TKA- 12/12/2005 ([facility]) V43.65 ??? GERD (gastroesophageal reflux disease) 530.81 ??? Anxiety 300.00 ??? Vertigo 780.4 ??? Right knee pain 719.46 ??? S/P Right total knee arthroplasty V43.65 ??? S/P Right TKA revision- poly exchange, synovectomy, lateral facet cheilectomy- 12/21/2012 ([facility])V43.65 ??? Osteoarthritis of right hip with pain 715.95 EXAM: HEENT: Airway examined, oropharynx clear LUNGS: Clear to auscultation HEART: Regular rate and rhythm, normal S1, S2 ABDOMEN: Normal bowel sounds, soft, non tender, non distended, A/P Proceed with the planned endoscopic procedure. Risks and benefits of the procedure explained to the patient. Consent signed. documented in this encounter Miscellaneous Notes Miscellaneous - Provider, Scanning - 12/12/2013 9:47 PM EDT Miscellaneous - Provider, Scanning - 12/12/2013 11:47 AM EDT OR Attestation - Fernanda Marcano MD - 12/12/2013 11:39 AM EDT Attestation: Case Date: 12/12/2013 As the attending physician, I personally performed the entire procedure. FERNANDA MARCANO MD 12/12/2013 documented in this encounter Plan of Treatment Not on filedocumented as of this encounter Procedures Procedure Name Priority Date/Time Associated Comments Diagnosis SURGICAL PATHOLOGY Routine 12/12/2013 11:40 Resul ts for this REPORT AM EDT procedure are i n the results section. SPECIMEN TO PATHOLOGY Routine 12/12/2013 11:40 Re sults for this AM EDT procedure are i n the results section. SPECIMEN TO PATHOLOGY Routine 12/12/2013 11:40 Re sults for this AM EDT procedure are i n the results section. COLONOSCOPY, 12/12/2013 11:03 Rectal Bleeding POLYPECTOMY, REMOVAL AM EDT LESION BY SNARE (WRVU 4.67) COLONOSCOPY Routine 12/12/2013 10:57 Results for this AM EDT procedure are i n the results section. documented in this encounter Results Surgical Pathology Report (12/12/2013 11:40 AM EDT) [facility] Method Time Signature Surgical CERNER Pathology ? [facility] Report ? Provider: ?? FERNANDA MARCANO ?Pt. Name: ?? SOFÍA LUX ? Acc #: ?[id number] ?Pt. MRN: ?[id number] ? Col Date: ?? 4 ? /Sex: ?1945,(68 years),Female ? Rec Date: ?? 12/12/2013 ? LOC: ?4T ? SURGICAL PATHOLOGY ? ---Pathologic Diagnosis--- ? A - Transverse colon, polypectomy: ? Tubular adenoma. ? Hyperplastic polyp. ? B - Descending colon, polypectomy: ? Fragments of tubular adenoma. ? CR-0, CR-PX ? 12/13/13 ? BJM ? 12/13/13 Verified by: ? Babar Kelly MD ? Pathologist ? (Electronic Si gnature) ? The attending pathologist whose signature appears o n this report has ? reviewed all diagnostic slides and has edited the joseph ss and/or ? microscopic portion of the report in rendering the fi nal pathologic ? diagnosis. ? ---Gross Description--- ? A - Labeled/Fixative: Three transverse colon polyps, formalin. ? Quantity/Size: Three, averaging 0.4 cm. ? Tissue Description: The pink. ? Sections/Processing: (T1) ? B - Labeled/Fixative: One descending colon polyp, for payton. ? Quantity/Size: Two, 0.2 and 0.3 cm. ? Tissue Description: Soft, red-turner tissue. ? Sections/Processing: (T1) ??ejr ? ---Clinical Information--- ? Specimen Submitted: ? A - 3 Transverse colon polyp ? B - 1 Descending colon polyp ? Clinical History: ? Rectal bleeding, multiple polyps ? Clinical Diagnosis: ? Same Specimen (Source) Anatomical Collection Method Collection Time Re ceived Time Location / / Volume Laterality 12/12/2013 11:40 AM EDT Fernanda Marcano MD PATHOLOGY/CYTOLOGY ORDERABLE S Performing Organization Address City/State/ZIP [place] [address] [facility] Specimen to Pathology (surgical or derm) (12/12/2013 11:40 AM EDT) Specimen Anatomical Collection Method Collection Time Receive d Time (Source) Location / / Volume Laterality AP Specimen 12/12/2013 11:40 12/12/2013 AM EDT 11:40 AM EDT Narrative CERNER MILLENNIUM - 12/12/2013 11:40 AM EDT Specimen requisition ordered. ??Separate Pathology report to follow Fernanda Marcano MD PATHOLOGY/CYTOLOGY ORDERABLE S Performing Organization Address [facility]/ZIP [place] [address] CERNER MILLENNIUM Specimen to Pathology (surgical or derm) (12/12/2013 11:40 AM EDT) Specimen Anatomical Collection Method Collection Time Receive d Time (Source) Location / / Volume Laterality AP Specimen 12/12/2013 11:40 12/12/2013 AM EDT 11:40 AM EDT Narrative CERNER MILLENNIUM - 12/12/2013 11:40 AM EDT Specimen requisition ordered. ??Separate Pathology report to follow Fernanda Marcano MD PATHOLOGY/CYTOLOGY ORDERABLE S Performing Organization Address City/[facility]/ZIP [place] [address] CERNER MILLENNIUM COLONOSCOPY (12/12/2013 10:57 AM EDT) Component Value Ref Test Analysis Performed At [facility] Range Method Time Signature COLONOSCOPY [facility] Endoscopy Patient Name: Sofía Lux ? Procedure Date: 12/12/2013 10:57 AM ? Date of : 1945 ? Age: 68 ? Order #: [id number] ? Procedure: ? Colonoscopy Indications: ? Hematochezia Providers: ? Fernanda Marcano, Brittany Pitts, GEMA , ? Reginald Page, Special Loan Officer Referring MD: ?Javi Izaguirre, DO Medicines: ? Midazolam 3 mg IV, Fentanyl 100 ? micrograms IV Complications: ? No immediate complications. Procedure: ? Pre-Anesthesia Assessment: ? - Prior to the procedure, a H istory ? and Physical was performed, a nd ? patient medications, allergie s and ? sensitivities were reviewed. The ? patient's tolerance of previo us ? anesthesia was reviewed. ? - The risks and benefits of t he ? procedure and the sedation op tions ? and risks were discussed with the ? patient. All questions were a nswered ? and informed consent was obta ined. ? - Patient identification and proposed ? procedure were verified prior to the ? procedure by the physician an jakob the ? nurse. The procedure was veri fied in ? the pre-procedure area in the ? procedure room. ? - Pre-procedure physical exam ination ? revealed no contraindications to ? sedation. ? - ASA Grade Assessment: II - A ? patient with mild systemic di sease. ? - After reviewing the risks a nd ? benefits, the patient was jesica med in ? satisfactory condition to und ergo the ? procedure. ? - The anesthesia plan was to use ? moderate sedation/analgesia ? (conscious sedation). ? The procedure, indications, b enefits, ? [...] zation, ? advanced to the terminal ileu m. ? Careful inspection was made a s the ? colonoscope was withdrawn. Th e ? patient tolerated the procedu re well. ? The quality of the bowel prep aration ? was excellent. ? Findings: ? The perianal and digital rectal examination revealed ? external hemorrhoids. ? Three semi-sessile polyps were found in the ? transverse colon (6mm, 5mm and 5mm in size) . These ? polyps were removed with a cold snare. Resection and ? retrieval were complete. Verification of patient ? identification for the specimen was done. ? A sessile polyp was found in the descending colon. ? The polyp was 4 mm in size. The polyp was removed ? with a cold snare. Resection and retrieval were ? complete. ? A few diverticula were found in the sigmoid colon and ? in the descending colon. ? The exam was otherwise without abnormality. ? The terminal ileum appeared normal. ? Impression: ?- Three polyps in the transverse ? colon. Resected and retrieved . ? - One 4 mm polyp in the desce nding ? colon. Resected and retrieved . ? - Diverticulosis in the sigmo id colon ? and in the descending colon. ? - The examination was otherwi se ? normal. ? - The examined portion of the ileum ? was normal. Recommendation: ?Rectal bleeding most likely due to ? constipation and hemorrhoids, no ? other obvious cause found ? Repeat colonoscopy for screen ing ? pending pathology ? Follow up with referring phys ician ? Fernanda Marcano Fernanda Marcano, 12/12/2013 11:47 AM This report has been signed electronically. Number of Addenda: 0 Note Initiated On: 12/12/2013 10:57 AM Specimen (Source) Anatomical Collection Method Collection Time Re ceived Time Location / / Volume Laterality 12/12/2013 10:57 AM EDT Javi Izaguirre DO GENERAL SURGICAL ORDERABLES Performing Organization Address City/State/ZIP Code Phon e Number [facility] documented in this encounter Visit Diagnoses Not on filedocumented in this encounter Administered Medications Inactive Administered Medications - up to 3 most recent administrations Medication Order MAR Action Action Date Dose Rate Site lactated ringers infusion New Bag 12/12/2013 10:45 AM EDT 30 mL/hr 30 mL/hr 30 mL/hr, Intravenous, CONTINUOUS, Starting on Delaney 12/12/13 at 1045, Until Delaney 12/12/13 at 1210, Endoscopy (Day of Procedure) documented in this encounter Active and Recently Administered Medications Times are shown in EDT. Continuous Medication Order 12/10/2013 12/11/2013 12/12/2013 lactated ringers infusion (CANCELED) 1045 (New Bag - Provider: Brittany Pitts RN) 30 mL/hr, at 30 mL/hr, Intravenous, CONT INUOUS, Starting Delaney 12/12/13 at 1045, Until Delaney 12/12/13 at 1210, Endo (Day of Procedure) PRN Medication Order 12/10/2013 12/11/2013 12/12/2013 fentaNYL 50mcg/mL injection (CANCELED) 1107 (Given - Provider: Brittany Pitts RN)1110 (Given - Provider: Brittany Pitts RN - Comment: c/o cramping)1113 (Given - Provider: Brittany Pitts, GEMA - Comment: c/o increased pain) ONCE PRN, Starting Delaney 12/12/13 at 1107, Until Delaney 12/12/13 at 1210, Pain, Intra- Operative (Intra-Procedure), Routine midazolam (PF) (VERSED) 1 mg/mL injection (CANCELED) 1107 (Given - Provider: Brittany Pitts RN)1110 (Given - Provider: Brittany Pitts, RN)1113 (Given - Provider: Brittany Pitts, RN) ONCE PRN, Starting Delaney 12/12/13 at 1107, Until Delaney 12/12/13 at 1210, Sleep, Intra- Operative (Intra-Procedure), Routine documented in this encounter Care Teams Cargo And Ramp Services Manager Relationship Specialty Start Date End Date Javi Izaguirre DO PCP - General 06/22/[address] [place] [address] documented as of this encounter
--- OUTSIDE RECORDS SUMMARY | 2022-04-22 01:44 | XMS_ITS | Encounter Summary ---
:1945 Author Organization [facility] [place] [address] Care Team Providers Name Role Phone Javi Izaguirre DO Primary Care Provider Reason for Visit Reason Comments Breast Cancer Encounter Details Date Type Department Care Team Description 06/01/2015 Office Visit Hematology/Oncology at [place], Steve Reddy, Breast cancer, left [facility] [address] [place] [phone] [id number] (Wo rk) Social History Tobacco Use Types [...] Sign Reading Time Taken Comments Blood Pressure 130/74 06/01/2015 1:09 PM EST Pulse 64 06/01/2015 1:09 PM EST Temperature - - Respiratory Rate 20 06/01/2015 1:09 PM EST Oxygen Saturation 100% 06/01/2015 1:09 PM EST Inhaled Oxygen Concentration - - Weight 69.2 kg (152 lb 8 oz) 06/01/2015 1:09 PM EST Height 165.1 cm (5' 5) 06/01/2015 1:09 PM EST Body Mass Index 25.38 06/01/2015 1:09 PM EST documented in this encounter Progress Notes Steve Cuevas MD - 06/01/2015 1:14 PM EST DIAGNOSIS:1) Stage IIA (pT1c pN1 MX), IDC left breast, low-grade, ER/AL positive, HER-2/ricardo negativebreast cancer. S/P 4 cycles AC and 12 weeks Taxol completed 02/07 now on Femara. 2) residual neuropathy lower extremities. 3) long- standing moderately severe arthralgias and myalgias Subjective: Sofía comes in today for followup. She remains on Arimidex 1 mg daily and is tolerating that well. Since her hip was replaced, her arthritis symptoms seem quite a bit better and she had a good summer overall. She did have some stress this summer and sure enough she now has some mild hypertension and is on medication for that. Otherwise, there have been no problems in the interim. She continues to have a moderate neuropathy that is tolerable. Past medical history and social are reviewed above and otherwise unchanged. Past medical history and social history are [...] supraclavicular, and axillary nodes normal Neurologic: Normal Laboratory today shows a white count of 6.69, hemoglobin 13.9, hematocrit 41%, and platelet count of 314. CMP shows a creatinine of 0.75, glucose of 100, calcium of 9.0, albumin of 0.27, ALP of 93, normal electrolytes. The patient's mammograms are scheduled for this June. Assessment/Plan: Sofía is doing well and now in her fourth year of taking her aromatase inhibitor. She would still like to stop it in about six months' time and we discussed whether or not that would be reasonable. I think it would be. She will continue on her medication and we will see her back in six months' time with a CBC and CMP. At the current time, she is doing well, cancer free, and at low risk for reoccurrence. She knows to call if there are any issues or problems in the interim. documented in this encounter Plan of Treatment Not on filedocumented as of this encounter Visit Diagnoses Diagnosis Breast cancer, left Malignant neoplasm of breast (female), u nspecified site documented in this encounter Care Teams Quality Control Auditor Relationship Specialty Start Date End Date Javi Izaguirre DO PCP - General 06/22/[address] [place] [address] documented as of this encounter
--- OUTSIDE RECORDS SUMMARY | 2022-04-22 01:44 | XMS_ITS | Encounter Summary ---
:1945 Author Organization [facility] [place] [address] Care Team Providers Name Role Phone Dmitriy, Javi BURKS Primary Care Provider Reason for Visit Reason Comments Follow-up Encounter Details Date Type Department Care Team Description 12/20/2013 Follow-Up Hematology Oncology at Sofía Medina B reast cancer (Primary Dx); [facility] TRACK REPAIR PERSON Breast cancer, left; [address] [place] [address] RD Anxiety [place], [place] [phone] [place] [address] (Wo rk) Social History Tobacco Use Types [...] Sign Reading Time Taken Comments Blood Pressure 142/71 12/20/2013 12:49 PM EDT Pulse 99 12/20/2013 12:49 PM EDT Temperature 36.7 ??C (98.1 ??F) 12/20/2013 12:49 PM EDT Respiratory Rate 18 12/20/2013 12:49 PM EDT Oxygen Saturation 96% 12/20/2013 12:49 PM EDT Inhaled Oxygen Concentration - - Weight 71 kg (156 lb 9.6 oz) 12/20/2013 12:49 PM EDT Height 165.1 cm (5' 5) 12/20/2013 12:49 PM EDT Body Mass Index 26.06 12/20/2013 12:49 PM EDT documented in this encounter Progress Notes Sofía Medina, TRACK REPAIR PERSON - 12/20/2013 1:18 PM EDT DIAGNOSIS:1) Stage IIA (pT1c pN1 MX), IDC, low-grade, ER/ND positive, 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 S/P 4 cycles AC and 12 weeks Taxol completed 02/07 now on Femara. 2) residual neuropathy lower extremities. 3) long-standing moderately severe arthralgias and myalgias Patient Active Problem List Diagnosis ??? Arnold's [...] patella size 32 mm ??? Breast cancer BP 142/71 Pulse 99 Temp 36.7 ??C (98.1 ??F) (Oral) Resp 18 Ht 165.1 cm (5' 5) Wt 71.033 kg (156 lb 9.6 oz) BMI 26.06 kg/m2 SpO2 96% Current Outpatient Prescriptions on File Prior to Visit Medication Sig Dispense Refill ??? omeprazole (PRILOSEC) 20 mg capsule Take 20 mg by mouth daily. ??? ibuprofen (ADVIL;MOTRIN) 200 mg tablet Take 400 mg by mouth as needed. ??? acetaminophen (TYLENOL) 500 mg tablet Take 2 tablets by mouth every 8 hours. Last day for scheduled dosing = December 31. Then may take every 8 hours as needed. Do not take more than 4,000 mg of acetaminophen in 24 hours. ??? LORazepam (ATIVAN) 1 mg tablet Take 1 mg by mouth every 6 hours as needed. ??? UNABLE TO FIND Suppository for Hemorid ??? amoxicillin (AMOXIL) 500 mg capsule Take 4 capsules 1 hour prior to dental procedures or cleanings. 20 capsule 0 Current Facility-Administered Medications on File Prior to Visit Medication Dose Route Frequency Provider Last Rate Last Dose ??? [COMPLETED] ROpivacaine (PF) 5 mg/mL (0.5 %) 4 mL with triamcinolone acetonide 40 mg injection Intra-articular Once Ted Saldivar MD Subjective: Sofía comes in today for followup 3 years out. She is doing well on the Femara with the only actual problem she's having been related to some occasional hot flashes. She exercises twice a week at a gym, and is quite active. She does note persistent neuropathy over the anterior portion of the sole of her foot which is experienced as a general dysesthesia. She does have some mild shortness of breath with stair climbing. She also continues to have an upset stomach at night for which she takes antacids with some success. She does not smoke. She drinks approximately 1-2 glasses of wine at night. Past medical history and social history are [...] distention. Genitourinary: Negative. Musculoskeletal: Minimal knee pain. Bilateral foot pain as described above. Generalized arthritis. Skin: Clear. 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 Hematological: Negative for adenopathy. Head: Normocephalic, without obvious abnormality, atraumatic Eyes: PERRL, conjunctiva/corneas clear both eyes Ears: Nares normal she has no [...] supraclavicular, and axillary nodes normal Neurologic: Normal Labs: 12/18/13 WBC 5.94 hemoglobin 14.1 platelets 268 Sodium 138 potassium 4.2 chloride 102 carbon dioxide 25.2 he went 15 creatinine 0.8 glucose 89 calcium 8.9 total bili 0.38 AST 20 ALT 28 alkaline phosphatase 78 total protein 7.3 albumin 3.6 Her mammograms have been ordered for July 05 Assessment/Plan: Sofía is tolerating the Femara well. She has no evidence of recurrent breast cancer. We'll arrange for followup in 6 months with a CBC and CMP and her mammography in June. She'll continue on Femara2.5 mg daily. In the meantime, I will plan to start her on a 100 mg titrating upwards dose of Neurontin to help with her neuropathy. I explained to her how to increase it and if there's problems she will give us a call. She knows to call if any problems or issues develop in the interim. Sofía Medina, MSN, FLOORING SALES MANAGER, AOCN Hematology/Oncology Nurse Practitioner [place], [place] [phone] documented in this encounter Plan of Treatment Not on filedocumented as of this encounter Visit Diagnoses Diagnosis Breast cancer - Primary Malignant neoplasm of breast (female), u nspecified site Breast cancer, left Malignant neoplasm of breast (female), u nspecified site Anxiety Anxiety state, unspecified documented in this encounter Care Teams Nurse Discharge Planner Relationship Specialty Start Date End Date Javi Izaguirre DO PCP - General 06/22/[address] [place] [address] [address] [facility] [address] [place] [address] documented as of this encounter
--- OUTSIDE RECORDS SUMMARY | 2022-04-22 01:44 | XMS_ITS | Encounter Summary ---
:1945 Author Organization [facility] [place] [address] Care Team Providers Name Role Phone Javi Izaguirre DO Primary Care Provider Encounter Details Date Type Department Care Team Description 01/11/2013 [place]ag [place] [facility] [place]jandra Beckman Polyethylene wear of Telephone Visit [facility] GEMA Costa right knee Drive prosthesis (Primary [place], [place]) [phone] Social History Tobacco Use Types Packs/Day Years Used Date Former Smoker Smokeless Tobacco: Never Used Alcohol Use Standard Drinks/Week Comments Yes 21 (1 standard drink = 0.6 oz pure alcoh ol) Sex Assigned at Date Recorded Female 03/31/2021 3:33 PM EDT documented as of this encounter Progress Notes Alejandra Beckman RN - 01/11/2013 9:11 AM EDT Anticoagulation Therapy Telephone Note: Indication: DVT Prophylaxis S/P Joint Replacement Duration of treatment: 4 weeks Anticipated End Date: 01/18. Instructed to start asa 325mg bid X 2 weeks INR:2.8, took wrong dose. Drawn by: [facility] Next INR Due: discontinued Patient Contact Preference: Message left on answering machine E-Mail: x Spoke with patient Warfarin dose : Increased Decreased x Maintained Bleeding: Epistaxis Black tarry stools Gingival [...] Diagnosis Comme nts EXTERNAL LAB RESULTS Routine 01/11/2013 Results for this procedure are i n the results section . 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
--- OUTSIDE RECORDS SUMMARY | 2022-04-22 01:44 | XMS_ITS | Encounter Summary ---
:1945 Author Organization [facility] [place] [address] Care Team Providers Name Role Phone Javi Izaguirre Primary Care Provider Encounter Details Date Type Department Care Team Description 12/19/2013 Hospital Encounter XRay at [facility], DR ZEPEDA [address] [place] [address] Gali Vasquez MD [facility] [place] [address] [place] [address] Social History Tobacco Use Types Packs/Day [...] tablet Last day for scheduled dosing = Kiana 3rd. Then may take every 8 hours as [...] documented as of this encounter Procedure Notes Ted Saldivar MD - 12/19/2013 5:18 PM EDTProcedure(s): ARTHROCENTESIS,DRAIN/INJECT JOINT/BURSA Pre-Procedure Diagnose(s): Pain in right hip Sofía Blevins Tamara [id number] HISTORY: right hip Pain Right hip INJECTION UNDER FLUOROSCOPY TECHNIQUE: After an extensive conversation with the patient regarding risks and benefits, oral and written consent were obtained. The patient was placed supine on the fluoroscopic table. The right hip was prepped and draped in the usual aseptic manner. 1% Lidocaine was used to achieve local anesthesia. Under fluoroscopic guidance, 22 gauge spinal needle was advanced into the joint space. Small amountof air was injected to the document needle placement. A mixture of Ropivacaine and triamcinolone acetonide was injected. All needles removed at end of procedure. FINDINGS: 1. Small amount of injected air in the right hip joint space. 2. PAIN SCORE: Before: 4 /10 After: 3 /10 3. Medications: Lidocaine 1% - <5 ml, for subcutaneous anesthesia Ropivacaine HCL 0.5% - 3 ml, Triamciolone Acetonide - 30 mg, Fluoroscopy time: 8 sec COMPLICATIONS: None immediate. POST-PROCEDURE CARE: Information regarding monitoring of infection, post- procedural pain and management of steroid flare were reviewed with patient. IMPRESSION: Uneventful right hip injection under fluoroscopy. Attending: TED SALDIVAR MD documented in this encounter Miscellaneous Notes Miscellaneous - Provider, Scanning - 12/25/2013 12:10 PM EDT documented in this encounter Plan of Treatment Not on filedocumented as of this encounter Visit Diagnoses Not on filedocumented in this encounter Administered Medications Inactive Administered Medications - up to 3 most recent administrations Medication Order MAR Action Action Date Dose Rate Site ROpivacaine (PF) 5 mg/mL (0.5 %) 4 Given 12/19/2013 2:00 PM EDT mL with triamcinolone acetonide 40 mg injection Intra-articular, ONCE, 1 dose, On Delaney 12/19/13 at 1400 documented in this encounter Care Teams Batch Roller Operator Relationship Specialty Start Date End Date Javi Izaguirre DO PCP - General 06/22/[address] [place] [address] documented as of this encounter
--- OUTSIDE RECORDS SUMMARY | 2022-04-22 01:44 | XMS_ITS | Encounter Summary ---
:1945 Author Organization [facility] [place] [address] Care Team Providers Name Role Phone Javi Izaguirre Primary Care Provider Encounter Details Date Type Department Care Team Description 12/12/2013 Surgery Gastroenterology at [facility] Fernanda Marcano, COLONOSCOPY, [facility] Jakob briseno MD POLYPECTOMY, [place] [address] [facility] LESION BY SNARE ([facility] [phone] 4.67) GASTROENTEROLOGY DEPT. [place], [place] [address] Social History Tobacco Use Types [...] documented in this encounter Discharge Instructions Discharge InstructionsSheila Landa RN - 12/12/2013 11:46 AM EDT Colonoscopy [...] When should you call for help? Call 221 anytime you think you may need emergency [...] you need to be checked. Monday-Monday Clinic [phone] 8a-5p Same Day Endo [phone] 7a-8p Otherwise contact [phone] and ask to speak to the paramedic supervisor specimen accessioner Follow up care is a herman part [...] cancer 174.9 ??? S/P Left TKA- 12/12/2005 ([facility]) V43.65 ??? GERD (gastroesophageal reflux disease) 530.81 ??? Anxiety 300.00 ??? Vertigo 780.4 ??? Right knee pain 719.46 ??? S/P Right total knee arthroplasty V43.65 ??? S/P Right TKA revision- poly exchange, synovectomy, lateral facet cheilectomy- 12/21/2012 ([facility])V43.65 ??? Osteoarthritis of right hip with pain [...] Surgical Pathology Report (12/12/2013 11:40 AM EDT) [facility] Method Time Signature Surgical CERNER Pathology ? [facility] Report ? Provider: ?? FENRANDA MARCANO ?Pt. Name: ?? SOFÍA LUX ? Acc #: ?[id number] ?Pt. MRN: ?[id number] ? Col Date: ?? 4 ? /Sex: [...] Organization Address City/State/[place] [address] CERNER LUISIUM Specimen to Pathology (surgical or derm) (12/12/2013 11:40 AM EDT) Specimen Anatomical Collection Method Collection Time Receive d Time (Source) Location / / Volume Laterality AP Specimen 12/12/2013 11:40 12/12/2013 AM EDT 11:40 AM EDT Narrative CERNER MILLENNIUM - 12/12/2013 11:40 AM EDT Specimen requisition ordered. ??Separate Pathology report to follow Fernanda Marcano MD PATHOLOGY/CYTOLOGY ORDERABLE S Performing Organization Address City/[facility]/ZIP Code Phon e Number [address] CERSHERITA SMITHIUM Specimen to Pathology (surgical or derm) (12/12/2013 11:40 AM EDT) Specimen Anatomical Collection Method Collection Time Receive d Time (Source) Location / / Volume Laterality AP Specimen 12/12/2013 11:40 12/12/2013 AM EDT 11:40 AM EDT Narrative [facility] - 12/12/2013 11:40 AM EDT Specimen requisition ordered. ??Separate Pathology report to follow Fernanda Marcano MD PATHOLOGY/CYTOLOGY ORDERABLE S Performing Organization Address City/[facility] Code Phon e Number [address] CERSHERITA SMITHIUM COLONOSCOPY (12/12/2013 10:57 AM EDT) Component Value Ref Test Analysis Performed At [facility] Range Method Time Signature COLONOSCOPY [facility] PROVATION Endoscopy Patient Name: Sofía Lux ? Procedure Date: 12/12/2013 10:57 AM ? Date of : 1945 ? Age: 68 ? Order #: [id number] ? Procedure: ? Colonoscopy Indications: ? Hematochezia Providers: ? Brittany Rivero, GEMA , ? Reginald Page, Optometry Doctor Referring MD: ?Javi Izaguirre, DO Medicines: ? [...] Action Action Date Dose Rate Site fentaNYL 50mcg/mL injection Given 12/12/2013 11:13 AM EDT 25 mcg ONCE PRN, Starting on Delaney 12/12/13 at 1107, Until Delaney 12/12/13 at 1210, Pain, Intra-Operative (Intra-Procedure), Routine Given 12/12/2013 11:10 AM EDT 25 mcg Given 12/12/2013 11:07 AM EDT 50 mcg lactated ringers infusion New Bag 12/12/2013 10:45 AM EDT 30 mL/hr 30 mL/hr 30 mL/hr, Intravenous, CONTINUOUS, Starting on Delaney 12/12/13 at 1045, Until Delaney 12/12/13 at 1210, Endoscopy (Day of Procedure) midazolam (PF) (VERSED) 1 mg/mL injectio n Given 12/12/2013 11:13 AM EDT 1 mg ONCE PRN, Starting on Delaney 12/12/13 at 1107, Until Delaney 12/12/13 at 1210, Sleep, Intra-Operative (Intra-Procedure), Routine Given 12/12/2013 11:10 AM EDT 1 mg Given 12/12/2013 11:07 AM EDT 1 mg documented in this encounter Active and [...] injection (CANCELED) 1107 (Given - Provider: Brittany Pitts, GEMA)1110 (Given - Provider: Brittany Pitts RN - Comment: c/o cramping)1113 (Given - Provider: Brittany Pitts RN - Comment: c/o increased pain) ONCE PRN, Starting Delaney 12/12/13 at 1107, Until Delaney 12/12/13 at 1210, Pain, Intra- Operative (Intra-Procedure), Routine midazolam (PF) (VERSED) 1 mg/mL injection (CANCELED) 1107 (Given - Provider: Brittany Pitts RN)1110 (Given - Provider: Brittany Pitts, GEMA)1113 (Given - Provider: Brittany Pitts, GEMA) ONCE PRN, Starting Delaney 12/12/13 at 1107, Until Delaney 12/12/13 at 1210, Sleep, Intra- Operative (Intra-Procedure), Routine documented in this encounter Care Teams Private Advisor Relationship Specialty Start Date End Date Javi Izaguirre DO PCP - General 06/22/10 [address] [place] [address] documented as of this encounter
--- OUTSIDE RECORDS SUMMARY | 2022-04-22 01:44 | XMS_ITS | Encounter Summary ---
:1945 Author Organization [facility] [place] [address] Care Team Providers Name Role Phone Dmitriy, Javi BURKS Primary Care Provider Reason for Visit Reason Onset Date Comments Referral 03/17/2014 Encounter Details Date Type Department Care Team Description 03/17/2014 Telephone Orthopaedics at [facility] Sorin Cruz MD Referral [facility] [place] [address] ORTHOPAEDIC SURGERY [phone] [place], [place] [address] (Wo rk) Social History Tobacco Use Types Packs/Day Years Used Date Former Smoker Quit: 12/12/18 84 Smokeless Tobacco: Never Used Comments: remote hx of smoking. Alcohol Use Standard Drinks/Week Comments Yes 7 (1 standard drink = 0.6 oz pure alcoho l) Sex Assigned at Date Recorded Female 03/31/2021 3:33 PM EDT documented as of this encounter Miscellaneous Notes Telephone Encounter - RaulAna - 03/17/2014 1:44 PM EDT Ask patient to verify the following: Full name: Sofía Mcdonald : 1945 Phone number: [phone] (home) Mailing address: [address] [place] [address] AGE: 68 y.o. REASON FOR APPOINTMENT: R HIP PAIN, DISCUSS ARIANNA FORMER BLADIMIR PATIENT - ALL INFO IN EDH. documented in this encounter Plan of Treatment Not on filedocumented as of this encounter Visit Diagnoses Not on filedocumented in this encounter Care Teams Wire Walker Relationship Specialty Start Date End Date Javi Izaguirre DO PCP - General 06/22/[address] [place] [address] documented as of this encounter
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
--- OUTSIDE RECORDS SUMMARY | 2022-04-22 01:44 | XMS_ITS | Encounter Summary ---
:1945 Author Organization [facility] [address] Care Team Providers Name Role Phone Javi Izaguirre DO Primary Care Provider Encounter Details Date Type Department Care Team Description 12/21/2012 Anesthesia Event Main Operating Room Teja Bonds MD [facility] [place] [address] [facility] Kylah Fournier PA [facility] [place] [address] [facility] [place] [address] Anesthesia Record Procedure Summary Procedure Name Responsible Anesthesia Start Anesthesia Stop Time Anesthesiologist Time @TOTAL KNEE Teja Wolf MD 12/21/12 1058 12/21/12 12 27 REVISION ARTHROPLASTY, COMPLETE (WRVU 27.11) (Right Knee) Events Date Time Event Comment 12/21/2012 1033 1058 Start 1101 AN Verify 1101 An Start Data 1106 An Induction 1107 An Intubation 1109 Anesthesia Ready 1126 An Tourn Inflated 1127 Procedure Start 1150 An Tourn Deflated 1213 Extubation/LMA Out 1217 an stop data 1227 Stop Name Total Midazolam 2 mg fentaNYL 150 mcg IV Lidocaine 100 mg Propofol 170 mg Ondansetron 4 mg Dexamethasone 4 mg ceFAZolin 2 g ketorolac (Toradol) (30 mg/mL) injection 15 mg lactated ringers infusion 1,000 mL 0 mL Agents Name O2 Air Sevoflurane (et) Blood No blood administrations on file. Lines, Drains, and Airways Type Details Placement Removal (RETIRED) Port A Cath 09/29/10; Subclavian; 09/29/10 0000 by Left Rosi Arevalo RN PIV 12/21/12; 0933; 12/21/12 0933 by 12/21/12 1100 b y 12/21/12; 1100 Sujatha Flores, RN Marylu Baez RN PIV 12/21/12; 0957; 12/21/12 0957 by 12/22/12 1406 b y 12/22/12; 1406 Sujatha Flores, RN Balaji, Nolan Block RN Urethral Catheter 12/21/12; 1052; 12/21/12 1052 by 12/22/12 0656 by indwelling double lumen Nori Pagan, Thai simpson, Arabella Menendez, RN catheter; 16; 1; RN 12/22/12; 0656 (RETIRED) LMA Type: iGel; LMA 12/21/12 1107 by 12/21/12 12 13 by Non-Surgical Airway Size: 4 Boston Valentine C, Boston Valentine, LEVEL VIAL SETTER LEVEL VIAL SETTER Incision 12/21/12; 1127; knee; 12/21/12 1127 by 03/28/22 1715 by 03/28/22 (LDA cleanup Nori Pagan Mulle r, Dierdre L utility RA#[id number]); 1715 RN (LDA cleanup utility RA#[id number]) Drain/Device Site 12/21/12; 1200 (present 12/21/12 1200 by 12/22 0530 by on assessment/inserted Arabella Dominguez, RN Arabella Dominguez, RN by other); Right; knee; collapsible closed device; 12/22/12; 0530 (removed by MD) documented in this encounter Social History Tobacco Use Types Packs/Day Years Used Date Former Smoker Smokeless Tobacco: Never Used Alcohol Use Standard Drinks/Week Comments Yes 21 (1 standard drink = 0.6 oz pure alcoh ol) Sex Assigned at Date Recorded Female 03/31/2021 3:33 PM EDT documented as of this encounter OR Notes Anesthesia Postprocedure Evaluation - Teja Wolf MD - 12/21/2012 1:55 PM EDT Patient: Sofía Mcdonald Procedure(s) Performed: Procedure(s): @TOTAL KNEE REVISION ARTHROPLASTY, COMPLETE MODIFIER PFC & MBT REVISION DEPUY Actual Anesthetic: general, regional Patient location: PACU Post-op pain: Adequate analgesia Post-op nausea: no nausea or vomiting Last Vitals: Filed Vitals: 12/21/12 1315 BP: 155/73 Pulse: Temp: 36.2 ??C (97.2 ??F) Resp: 16 Post-op cardiovascular and respiratory status: is stable Level of consciousness: awake, alert and oriented Complications: no apparent complications and tolerated the procedure well Fluid Status: normal Anesthesia Procedure Notes - Donavan Pham MD - 12/21/2012 10:31 AM EDT Associated Order(s): ANESTHESIA BLOCK Procedure: Anesthesia Block Block: Post-op Pain Control, femoral nerve block Start time: 12/21/2012 10:00 AM End time: 12/21/2012 10:07 AM This patient was greeted in the block room and the risks and benefits of the anesthetic block were reviewed. The risks of infection, bleeding, local anesthetic toxicity, and nerve injury were discussed. Specifically, the approximate risk of nerve injury (07/2999-07/4999) including neuropathy, loss of sensation and motor function, whether permanent or temporary, was discussed as well as the fact that post-surgical nerve injury can be unrelated to the actual injection and may be related to intra-operative issues such as positioning and tourniquet usage. The anesthetic consent was obtained. The timeout was performed prior to procedure start. Standard ASA monitors were applied. Indication/Prep Position: supine Prep: chlorhexidine and patient draped Laterality: right Ultrasound Guidance: live and in-plane Skin Medication lidocaine 1% 2 ml Injection Injection technique:single-shot Needle Length: 5 cm Gauge: 22 Needle Type: [id number]-mjucv Medication injection made incrementally with aspirations. Nerve infiltration solution through a needle Other, see note 30 mL Additional Notes 30 mL of 0.35% ropivacaine given Performed by: Donavan Pham MD Supervising Attending/Fellow: Micheal Rodriguez MD ~~~~~~~~~~~~~~~~~~~~~~~~~~~~~~~~~~~~~~~~~~~~~~~~~~~~~~~~~~~~ Anesthesia Preprocedure Evaluation - Teja Wolf MD - 12/11/2012 12:38 PM EDT Pre-Anesthesia Evaluation for: Sofía Gen Mcdonald a 67 y.o. female. Procedure(s): @TOTAL KNEE REVISION ARTHROPLASTY, COMPLETE MODIFIER PFC & MBT REVISION DEPUY Patient Active Problem List Diagnoses ??? GERD (gastroesophageal reflux disease) ??? Anxiety ??? Vertigo ??? Right knee pain ??? S/P Right total knee arthroplasty ??? S/P knee replacement SURGERY DATE: 12/12/2005 BLADIMIR PAGE, RAE Roth Surgical Procedure Performed: Left total knee arthroplasty, posterior stabilized with computer navigation Components Used: Karsten Legacy Posterior Stabilized Femur size E Tibial baseplate size 4 Tibial polyethylene 10 mm Three peg patella size 32 mm ??? Breast cancer Past Medical History Diagnosis Date ??? Breast cancer ??? MS (congenital mitral stenosis) ??? Peptic ulcer disease ??? Diverticulosis ??? Colon polyps ??? Right knee pain 06/04/2012 Past Surgical History Procedure Date ??? Created by interface Carpal tunnel left Procedure Date: 2009 ??? Created by interface Entered not Verified Procedure Date: 07/12/2010 ??? Created by interface Left total knee replacement Procedure Date: 2006 ??? Created by interface Right total knee replacement Procedure Date: 1997 ??? Tubal ligation ' ??? Breast lumpectomy 1988 R ??? Endometrial biopsy dysfunctional uterine bleeding ??? Knee surgery R lat meniscectomy , R knee arthroscopy ' & , R knee osteotomy , R knee staple removal , R TKR , L TKR '. ??? Arthroplasty B thumb ' ??? Carpal tunnel release L ??? Wrist fracture surgery 07/09 R History Substance Use Topics ??? Smoking status: Former Smoker ??? Smokeless tobacco: Never Used ??? Alcohol Use: 12.6 oz/week 21 Glasses of wine per week Allergies Allergen Reactions ??? Metoclopramide Hcl Other (See Comments) Disorientation, flushing, fatigue ??? Prochlorperazine Maleate Other (See Comments) agitation Medications: MAR and/or home medications have been reviewed. ECG Review 12/10/12 ECG: Sinus bradycardia Minimal voltage criteria for LVH, may be normal variant Anteroseptal infarct (cited on or before 08-DEC-2005) When compared with ECG of 08-DEC-2005 12:25, Questionable change in initial forces of Anterior leads Confirmed by MD Tang Timothy ([id number]) on 12/10/2012 1:36:12 PM C/W ECG from 08/04/10 from [facility], no changes. Physical Exam: There were no vitals filed for this visit. There is no height or weight on file to calculate BMI. Airway Assessment: Mallampati: II Neck ROM: full Cardiovascular Assessment: Pulmonary Assessment: Dental Assessment: - normal exam [facility] Assessment: Anesthesia Plan: ASA 2 general and regional, with a(n) intravenous induction 67 y/o F with h/o breast cancer with peripheral neuropathy (feet only) from medication, ? H/o MS butwithout symptoms or medication for years. Denies HTN or other cardiopulm disease. Discussed potential risk of worsening neuropathy with nerve block. Very unlikely due to distributionof neuropathy. She agrees to single shot block. Plan: GETA + single shot R femoral nerve block. Region - Other Informed Consent: Anesthetic plan and risks discussed with patient and spouse. Plan discussed with attending. [facility]. Assessment: documented in this encounter Plan of Treatment Not on filedocumented as of this encounter Procedures Procedure Name Priority Date/Time Associated Diagnosis Comme nts ANESTHESIA BLOCK Routine 12/21/2012 10:41 AM Resu lts for this EDT procedure are i n the results section. documented in this encounter Results Anesthesia Block (12/21/2012 10:41 AM EDT) Narrative Donavan Pham MD - 12/21/2012 10:41 AM EDT Donavan Pham MD ? 12/21/2012 10:41 AM Procedure: ??Anesthesia Block Block: Post-op Pain Control, femoral ner ve block Start time: 12/21/2012 10:00 AM End time: 12/21/2012 10:07 AM This patient was greeted in the block ro om and the risks and benefits of the anesthetic block were re viewed. ??The risks of infection, bleeding, local anesthetic to xicity, and nerve injury were discussed. ??Specifically, the appr oximate risk of nerve injury (07/2999-07/4999) including neuropa thy, loss of sensation and motor function, whether permanent or temporary, was discussed as well as the fact that post-surgical n erve injury can be unrelated to the actual injection and ma y be related to intra-operative issues such as positioni ng and tourniquet usage. ?? The anesthetic consent was obtained. The timeout was performed prior to procedure start. ??Standard ASA monitors were applied. Indication/Prep Position: supine Prep: chlorhexidine and patient draped Laterality: right Ultrasound Guidance: live and in-plane Skin Medication lidocaine 1% 2 ml Injection Injection technique:single-shot Needle Length: 5 cm Gauge: 22 Needle Type: [id number]-hsynb Medication injection made incrementally with aspirations. Nerve infiltration solution through a ne edle Other, see note 30 mL Additional Notes 30 mL of 0.35% ropivacaine given Performed by: ??Donavan Pham MD Supervising Attending/Fellow: ??Micheal yepez MD ~~~~~~~~~~~~~~~~~~~~~~~~~~~~~~~~~~~~~~~~ ~~~~~~~~~~~~~~~~~~~~ Procedure Note Donavan Pham MD - 12/21/2012 10:31 AM EDT Procedure: Anesthesia Block Block: Post-op Pain Control, femoral ner ve block Start time: 12/21/2012 10:00 AM End time: 12/21/2012 10:07 AM This patient was greeted in the block ro om and the risks and benefits of the anesthetic block were reviewed. The risks of infection, bleeding, local anesthetic toxicity, and nerve injury were discussed. Specifically, the approximate risk of nerve injury (1/ 3000-07/4999) including neuropathy, loss of sensation and motor function, whether permanent or temporary, was discussed as well as the fact that post-surgical nerve injury can be unrelated to the actual injection and ma y be related to intra-operative issues such as positioning and tourniquet usage. The anesthetic consent was obtained. The timeout was performed prior to procedure start. Standard ASA monitors were applied. Indication/Prep Position: supine Prep: chlorhexidine and patient draped Laterality: right Ultrasound Guidance: live and in-plane Skin Medication lidocaine 1% 2 ml Injection Injection technique:single-shot Needle Length: 5 cm Gauge: 22 Needle Type: [id number]-qdnld Medication injection made incrementally with aspirations. Nerve infiltration solution through a ne edle Other, see note 30 mL Additional Notes 30 mL of 0.35% ropivacaine given Performed by: Donavan Pham MD Supervising Attending/Fellow: Micheal sumner MD ~~~~~~~~~~~~~~~~~~~~~~~~~~~~~~~~~~~~~~~~ ~~~~~~~~~~~~~~~~~~~~ Donavan Pham MD DIVIDER OPERATOR [facility] documented in this encounter Visit Diagnoses Not on filedocumented in this encounter Administered Medications Inactive Administered Medications - up to 3 most recent administrations Medication Order MAR Action Action Date Dose Rate Site ceFAZolin (ANCEF) injection Given 12/21/2012 11:12 AM EDT 2 g PRN, Starting on Mon12/21/12 at 1112, Until Mon12/21/12 at 1229, Anesthesia Intra-op, Routine dexamethasone (DECADRON) injection Given 12/21/2012 11:21 AM EDT 4 mg PRN, Starting on Mon12/21/12 at 1121, Until Mon12/21/12 at 1229, Anesthesia Intra-op, Routine fentaNYL 50mcg/mL injection Given 12/21/2012 12:25 PM EDT 25 mcg PRN, Starting on Mon12/21/12 at 1116, Until Mon12/21/12 at 1229, Pain, Anesthesia Intra-op, Routine Given 12/21/2012 12:23 PM EDT 25 mcg Given 12/21/2012 11:40 AM EDT 25 mcg ketorolac (TORADOL) injection Given 12/21/2012 11:53 AM EDT 15 mg PRN, Starting on Mon12/21/12 at 1153, Until Mon12/21/12 at 1229, Pain, Anesthesia Intra-op, Routine lactated ringers infusion 1,000 mL New Bag 12/21/2012 11:40 AM EDT mL 1,000 mL, at 100 mL/hr, Intravenous, CONTINUOUS, Starting on Mon12/21/12 at 0930, Until Mon12/21/12 at 1422, Day of Surgery (Day of Procedure) New Bag 12/21/2012 9:30 AM EDT 1,000 mLs 100 mL/hr lidocaine (PF) (XYLOCAINE) 100 mg/5 mL (2 %) Given 11:06 AM EDT 100 mg injection PRN, Starting on Mon12/21/12 at 1106, Until Mon12/21/12 at 1229, Anesthesia Intra-op, Routine midazolam (VERSED) injection Given 12/21/2012 11:05 AM EDT 1 mg PRN, Starting on Mon12/21/12 at 1058, Until Mon12/21/12 at 1229, Sleep, Anesthesia Intra-op, Routine Given 12/21/2012 10:58 AM EDT 1 mg ondansetron (ZOFRAN) injection Given 12/21/2012 11:53 AM EDT 4 mg PRN, Starting on Mon12/21/12 at 1153, Until Mon12/21/12 at 1229, Nausea, Anesthesia Intra-op, Routine propofol (DIPRIVAN) 10 mg/mL bolus injection Given 11:06 AM EDT 170 mg (Anesthesia) PRN, Starting on Mon12/21/12 at 1106, Until Mon12/21/12 at 1229, Anesthesia Intra-op documented in this encounter Care Teams Lead Technical Architect Relationship Specialty Start Date End Date Javi Izaguirre DO PCP - General 06/22/[address] [place] [address] [address] [place] [address] documented as of this encounter
--- OUTSIDE RECORDS SUMMARY | 2022-04-22 01:44 | XMS_ITS | Encounter Summary ---
:1945 Author Organization [facility] [place] [address] Care Team Providers Name Role Phone Javi Izaguirre DO Primary Care Provider Encounter Details Date Type Department Care Team Description 01/08/2013 Anti-Coag Orthopaedics at [facility] Alejandra Beckman Polyethylene wear of Telephone Visit [facility] GEMA [place] right knee Drive prosthesis (Primary [place], [place] Dx) [id number] Social History Tobacco Use Types Packs/Day Years Used Date Former Smoker Smokeless Tobacco: Never Used Alcohol Use Standard Drinks/Week Comments Yes 21 (1 standard drink = 0.6 oz pure alcoh ol) Sex Assigned at Date Recorded Female 03/31/2021 3:33 PM EDT documented as of this encounter Progress Notes Alejandra Beckman RN - 01/08/2013 8:12 AM EDT Anticoagulation Therapy Telephone Note: Indication: DVT Prophylaxis S/P Joint Replacement Duration of treatment: 4 weeks Anticipated End Date: 01/18 INR:2.1 Drawn by: [facility] Next INR Due: 01/10 Patient Contact Preference: Message left on answering machine E-Mail: x Spoke with patient Warfarin dose : Increased Decreased x Maintained Bleeding: Epistaxis Black tarry stools Gingival bleeding Abnormal bruising Hematuria surgical site Hemoptysis x No bleeding / bruising reported Recent medication changes: Yes x No Have you missed a dose of Coumadin? Yes x No Dietary Changes: Yes x No Alejandra Beckman RN - 01/08/2013 8:10 AM EDT This note is recorded by Alejandra Beckman RN acting as a scribe for Ellis Lau MD. PREOPERATIVE VISIT HISTORY OF PRESENT ILLNESS: Very pleasant 66 year-old female with increasing pain of her left TKA. Ihave seen the patient previously and the plan is for right total knee arthroplasty revision. Please refer to my previous note for the full history. Leave her symptoms are due largely to a clean synovitis, although she does have increasing laxity of the MCL as well. She has a knee that has been implanted approximately 11 years ago, is a DAXKO Advantim. The patient reports that the pain has not changed and has actually gotten a bit worse. She reviewed the shared decision making video and is confident in the decision to go forward with total joint arthroplasty revision PHYSICAL EXAMINATION: Exam is previously documented in my note and is unchanged. I have made the following determinations: Knee Exam: Left Prior surgery on this joint: Yes Gait Abnormality: Antalgic Knee ROM: Extension:0 Flexion: 100 Alignment: 0-4 degrees Neutral Stability: A/P Translation 5-10mm Varus (lateral stability) >10mm Valgus (medial stability) 5-10mm Extension La-10 degrees Radiographic evidence of joint damage: [0= normal; 1=minimal ; 2= some osteophytes , some narrowing ; 3= moderate osteophytes, significant narrowing, mild deformity; 4= large osteophytes, marked narrowing, obvious deformity]: Revision TKA, doesn't apply Patella Tracking: Normal Skin Integrity: Normal Pulses Palpable: Left PT:Yes Left DP:Yes Motor/Sensory: Distal Motor:Normal Distal Sensory: Normal Quadriceps Strength:5 LABORATORY DATA: Hgb: Normal Platelets: Normal INR: Normal type and screen done. ASSESSMENT/PLAN: A 66 year-old female who presents for preoperative appointment today. I had a long discussion with the patient regarding the risks and benefits of revision arthroplasty. We talked about bleeding, infection, need for further surgery, fracture, blood clots, implant failure, blood transfusion, and the complications of anesthesia up to and including . I used total knee implants to demonstrate for them how we perform the procedure and all of their questions were answered. I did review the history and physical today which says the patient is cleared for surgery and has no specific recommendations for further testing. I reviewed the labs and there were no issues with those. Informedconsent was signed in the clinic today. We discussed DNR status and the patient is a full code. We will plan to use coumadin for four weeks postoperatively for DVT prophylaxis. I discussed with them the possible discharge scenarios including going home versus needing to go to a rehab facility. We willmake that determination after seeing how well mobilization is progressing. She hopes to be discharged home with her Micheal's assist I have personally evaluated the patient and agree with the above note as recorded by Alejandra Beckman RN. Attending Note. I have seen the patient, I have reviewed the care plan as described, and I agree (with any changes or additions outlined below). The components are well fixed and we can balance the MCL and we'll proceed with a polyethylene swab only using [employer] implant. If either we cannot balance the MCL or the components are loose ormalposition, I will switch likely to a [facility] [employer] TC 3 rotating platform implant with stems and possible augments and sleeves. We will proceed with revision total knee arthroplasty, major benefits are caodaism of ambulatory capacity and diminution of pain, risks include infection, blood clot, pulmonary embolus, fracture, stiffness, ongoing pain, nerve or blood vessel injury leading to numbness or loss of movement, reoperati on the future, risk of anesthesia including . Shared medical decision-making was used to discuss and help the patient arrive at preference-sensitive treatment options including anesthesia, postoperative anticoagulation, implant type, and surgical approach as well as discharge options including institutional versus home or self-care. Ellis Lau MD documented in this encounter Plan of Treatment Not on filedocumented as of this encounter Procedures Procedure Name Priority Date/Time Associated Diagnosis Comme nts EXTERNAL LAB RESULTS Routine 01/08/2013 Results for this procedure are i n the results section . 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
--- OUTSIDE RECORDS SUMMARY | 2022-04-22 01:44 | XMS_ITS | Encounter Summary ---
:1945 Author Organization [facility] [place] [address] Care Team Providers Name Role Phone Javi Izaguirre Primary Care Provider Encounter Details Date Type Department Care Team Description 08/19/2014 Orders Only Radiology and Cardiology Apd Conversion, Results Results Provider, [address] [place] [address] Social History Tobacco Use Types [...] Diagnosis Comme nts TYPE AND SCREEN Routine 08/19/2014 Results for this ([facility]) procedure a re in the results section . documented in this encounter Results (ABNORMAL) Type and screen (LEB/CGP) (08/19/2014) [facility] Method Time Signature Armband EVLS [id number] [facility] Identification (External DAY Lab) CONVERSION AB Screen Interp NEGATIVE NEGATIVE [facility] (External DAY Lab) CONVERSION Rh NEGATIVE [facility] (External DAY Lab) CONVERSION ABO Grouping A (External ABO [facility] Lab) DAY CONVERSION Specimen (Source) Anatomical Location Collection Method / Collectio n Time Received Time / Laterality Volume 08/19/2014 Results Provider Apd Conversion BLOOD BANK ORDERABL ES Performing Organization Address City/State/ZIP Code Phon e Number [facility] DAY CONVERSION [address] [place], [place] [address] [facility] DAY CONVERSION documented in this encounter Visit Diagnoses Not on filedocumented in this encounter Care Teams Artistic Director Relationship Specialty Start Date End Date Javi Izaguirre DO PCP - General 06/22/[address] [place] [address] documented as of this encounter
--- OUTSIDE RECORDS SUMMARY | 2022-04-22 01:44 | XMS_ITS | Encounter Summary ---
:1945 Author Organization [facility] Address [address] [place] [address] Care Team Providers Name Role Phone Javi Izaguirre DO Primary Care Provider Encounter Details Date Type Department Care Team Description 07/06/2015 [place] En[place] [facility]avi Izaguirre, Encounter for [facility] DO screening mammogram Drive [address] [place] [address] for breast cancer [place], [place] [address] [id number] [place], [place] [phone] [id number] Social History Tobacco Use Types Packs/Day Years [...] Sig Dispensed Refills Start Date End Date amLODIPine (NORVASC) 5 Take 5 mg by [...] 4,000 mg of acetaminophen in 24 hours. mometasone (ELOCON) Apply topically daily 0 07/0602/12/2020 [...] Priority Date/Time Associated Diagnosis Comme nts MAMMO 2D DIGITAL Routine 07/06/2015 11:54 AM Encounter for Res ults for this SCREEN DARION EST screening mammogram procedur e are in BILATERAL for breast cancer the result s section. documented in this encounter Results Mammo Screen Darion 2D Bilateral (07/06/2015 11:54 AM EST) Anatomical Region Laterality Modality Breast Bilateral Mammography Specimen (Source) Anatomical Location Collection Method / Collectio n Time Received Time / Laterality Volume Impressions 07/06/2015 12:15 PM EST IMPRESSION: No mammographic evidence of malignancy. RECOMMENDATION: * ??The [employer] an d The Society [...] earlier screening and breast MRI are appropriate. BIRADS CATEGORY 2: BENIGN A result letter has been sent to this pa [facility]perlita by [facility]. Narrative 07/06/2015 12:15 PM EST REASON FOR EXAM: Screening History of breast cancer TECHNIQUE: CC and MLO views were obtaine d of bilateral breast. Computer aided detection was used. 3D tomosynthesis maricruz ges were obtained in addition to 2D images.?Computer assisted detection was used. FINDINGS: Breast density:?There are scattered area s of fibroglandular density. There are no suspicious microcalcifications, lake s, or areas of distortion. No changes compared to prior studies. . ??There are post surgical changes in t he bilateral breast. Javi ARRIOLAG MAMMO ORDERABLES documented in this encounter Visit Diagnoses Diagnosis Encounter for screening mammogram for br east cancer documented in this encounter Care Teams Chief Of Pediatric Urology Relationship Specialty Start Date End Date Javi Izaguirre DO PCP - General 06/22/[address] [place] [address] documented as of this encounter
--- OUTSIDE RECORDS SUMMARY | 2022-04-22 01:44 | XMS_ITS | Encounter Summary ---
:1945 Author Organization [facility] [place] [address] Care Team Providers Name Role Phone DmitriyJavi agrawal Primary Care Provider Reason for Visit Reason Onset Date Comments Other 12/31/2012 Couple questions Encounter Details Date Type Department Care Team Description 12/31/2012 [place]phone [place] [facility]zy Dangelo, Mark ([facility] Ramirez briseno RN questions) [place] [address] Social History Tobacco Use Types Packs/Day Years Used Date Former Smoker Smokeless Tobacco: Never Used Alcohol Use Standard Drinks/Week Comments Yes 21 (1 standard drink = 0.6 oz pure alcoh ol) Sex Assigned at Date Recorded Female 03/31/2021 3:33 PM EDT documented as of this encounter Miscellaneous Notes Telephone Encounter - Litzy Dangelo RN - 12/31/2012 1:20 PM EDT Patient called the nurse 12/31/12 at 10:21 am stating she had a couple questions. A return call was made 12/31/12 at 1:17 pm. A message was left for the patient to call back the nurse. documented in this encounter Plan of Treatment Not on filedocumented as of this encounter Visit Diagnoses Not on filedocumented in this encounter Care Teams Carcass Washer Relationship Specialty Start Date End Date Javi Izaguirre DO PCP - General 06/22/[address] [place] [address] documented as of this encounter
--- OUTSIDE RECORDS SUMMARY | 2022-04-22 01:44 | XMS_ITS | Encounter Summary ---
:1945 Author Organization [facility] [place] [address] Care Team Providers Name Role Phone DmitriyJavi agrawal Primary Care Provider Reason for Visit Reason Comments Breast Cancer Encounter Details Date Type Department Care Team Description 06/19/2013 Follow-Up Hematology Oncology at Antony Cuevas MD Breast cancer (Primary [address] Dx) [address] [place] [phone] Social History Tobacco Use Types Packs/Day Years Used Date Former Smoker Smokeless Tobacco: Never Used Comments: remote hx of smoking. Alcohol Use Standard Drinks/Week Comments Yes 7 (1 standard drink = 0.6 oz pure alcoho l) Sex Assigned at Date Recorded Female 03/31/2021 3:33 PM EDT documented as of this encounter Last Filed Vital Signs Vital Sign Reading Time Taken Comments Blood Pressure 145/78 06/19/2013 3:32 PM EST Pulse 67 06/19/2013 3:32 PM EST Temperature 36.5 ??C (97.7 ??F) 06/19/2013 3:32 PM EST Respiratory Rate 18 06/19/2013 3:32 PM EST Oxygen Saturation 97% 06/19/2013 3:32 PM EST Inhaled Oxygen Concentration - - Weight 71.9 kg (158 lb 8 oz) 06/19/2013 3:32 PM EST Height 166.4 cm (5' 5.51) 06/19/2013 3:32 PM EST Body Mass Index 25.97 06/19/2013 3:32 PM EST documented in this encounter Progress Notes Steve Cuevas MD - 06/19/2013 3:36 PM EST DIAGNOSIS:1) Stage IIA (pT1c pN1 MX), IDC, low-grade, ER/ID positive, 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 S/P 4 cycles AC and 12 weeks Taxol completed 02/07 now on Femara. 2) residual neuropathy lower extremities. 3) long-standing moderately severe arthralgias and myalgias Subjective: Sofía comes in today for followup. She is doing well on the Arimidex with the only actual problem she's having been related to some occasional hot flashes. She's had her right knee revision and after that procedure she had rehabilitation and was able to participate in some exercise classes. Overall she is doing a lot better and is feeling better as well and is planning on going downhill skiing some this winter. She also has plans to go to [facility] for a vacation with her . Past medical history and social history are [...] and axillary nodes normal Neurologic: Normal Laboratory is reviewed and her white count is 8.1 hemoglobin 14.2 platelet count 279 and ANC is normal at 6.19. CMP is normal with a creatinine of 0.9 normal electrolytes and liver tests including an ALP of 90. Her mammograms have been ordered for July 05 Assessment/Plan: Sofía is tolerating the Femara well. She has no evidence of recurrent breast cancer. Since her knee revision and exercise rehabilitation she is doing quite a bit better overall physically. t. We'll arrange for followup in 6 months with a CBC and CMP and her mammography is due in June. She'll continue on Femara 2.5 mg daily. She knows to call if any problems or issues develop in the interim. documented in this encounter Plan of Treatment Not on filedocumented as of this encounter Visit Diagnoses Diagnosis Breast cancer - Primary Malignant neoplasm of breast (female), u nspecified site documented in this encounter Care Teams Nurse Advocate Relationship Specialty Start Date End Date Javi Izaguirre DO PCP - General 06/22/[address] [place] [address] documented as of this encounter
--- OUTSIDE RECORDS SUMMARY | 2022-04-22 01:44 | XMS_ITS | Encounter Summary ---
:1945 Author Organization [facility] [place] [address] Care Team Providers Name Role Phone Javi Izaguirre DO Primary Care Provider Reason for Visit Reason Onset Date Comments Other 01/01/2013 INR Draw Order Encounter Details Date Type Department Care Team Description 01/01/2013 Telephone Orthopaedics at [facility] Radha Sandoval RN Other (INR Draw Order) [place] [phone] Social History Tobacco Use Types Packs/Day Years Used Date Former Smoker Smokeless Tobacco: Never Used Alcohol Use Standard Drinks/Week Comments Yes 21 (1 standard drink = 0.6 oz pure alcoh ol) Sex Assigned at Date Recorded Female 03/31/2021 3:33 PM EDT documented as of this encounter Miscellaneous Notes Telephone Encounter - Radha Sandoval RN - 01/01/2013 4:27 PM EDT s/p right knee synovectomy and poly exchange for wear. Sid 12/21 Sofía Mcdonald called requesting that an order for her PT INR draw be faxed to [facility]. Order sent by fax to . documented in this encounter Plan of Treatment Not on filedocumented as of this encounter Visit Diagnoses Diagnosis DVT prophylaxis - Primary Encounter for long-term (current) use of anticoagulants documented in this encounter Care Teams It Compliance Analyst Relationship Specialty Start Date End Date Javi Izaguirre DO PCP - General 06/22/[address] [place] [address] documented as of this encounter
--- OUTSIDE RECORDS SUMMARY | 2022-04-22 01:44 | XMS_ITS | Encounter Summary ---
:1945 Author Organization [facility] Address [address] [place] [address] Care Team Providers Name Role Phone Javi Izaguirre DO Primary Care Provider Reason for Visit Reason Comments [facility] Of [facility] s/p right tka rev dos 3 left 12/12/05 Bilateral Hip Pain groin pain Encounter Details Date Type Department Care Team Description 12/09/2013 Office Visit [place]edics [place] [facility] Ellis Lau, S/P revision of total knee, right (Primary Dx); [facility] Osteoarthritis of right hip with pain [address] [place] [address] [phone] [place] [address] Social History Tobacco Use Types Packs/Day Years Used Date Former Smoker Smokeless Tobacco: Never Used Comments: remote hx of smoking. Alcohol Use Standard Drinks/Week Comments Yes 7 (1 standard drink = 0.6 oz pure alcoho l) Sex Assigned at Date Recorded Female 03/31/2021 3:33 PM EDT documented as of this encounter Last Filed Vital Signs Vital Sign Reading Time Taken Comments Blood Pressure 146/74 12/09/2013 1:33 PM EDT Pulse 69 12/09/2013 1:33 PM EDT Temperature - - Respiratory Rate - - Oxygen Saturation - - Inhaled Oxygen Concentration - - Weight 70.6 kg (155 lb 9.6 oz) 12/09/2013 1:33 PM EDT Height 166.4 cm (5' 5.5) 12/09/2013 1:33 PM EDT Body Mass Index 25.5 12/09/2013 1:33 PM EDT documented in this encounter Progress Notes Tina Walsh PA - 12/09/2013 2:52 PM EDT Patient Name: Sofía Mcdonald : 1945 MR#: [id number] Date of Visit: 12/09/2013 Case Date: 12/21/12 Surgeon: Ellis Lau MD Procedure: Right TKA revision Questionnaire Responses: myD-H Hip & Knee 12/03/2013 MODEMS Expectation - MODEMS Satisfaction 100 VR12 - Physical Component Summary 39.67 VR12 - Mental Component Summary 63.15 PROMIS-10 General Health Good PROMIS-10 Quality of Life Good PROMIS-10 Physical Health Good PROMIS-10 Mental Health Very Good PROMIS-10 Social Activity and Relationship Satisfaction Very Good PROMIS-10 Social Roles at Home and Work Very Good PROMIS-10 Everyday Physical Activities Mostly PROMIS-10 Anxious or Depressed last 7 days Sometimes PROMIS-10 Fatigue last 7 days Mild PROMIS-10 Pain last 7 days 4 PROMIS PHYSICAL HEALTH SCORE (range 16-68) 44.9 PROMIS MENTAL HEALTH SCORE (range 21-68) 48.3 Arthritis Ladder - Knee - HPI: Sofía Mcdonald is a very pleasant 68 y.o. year-old female who presents for a 1 year followup of her right ARIANNA revision. Her pain is moderately improved compared to preoperatively. She is not using any assistive device. Unfortunately, she does feel like she is not doing quite as well as she thought she would be. She still has some muscle pain of both quadriceps and her quads still feels somewhat weak to her. She does not have any significant pain in the right knee itself though. She does have some soreness in the muscles around the knee. She does feel like instability is much better. No falls orinjuries. Taking antibiotics before all dental work. She also complains today of bilateral hip pain. Her right hip has been bothering her for the last 2 years on and off, she notes most of her pain in the right groin. She also notes that putting on socksand shoes is very difficult on the right side. She denies any giving out, popping, clicking, swelling, or redness around the right hip. Again she is not using any assistive devices. It does bother her to bend forward at the right hip she thinks that stretching helps a little bit. The right hip primarily bothers her when she is getting dressed, she does have some significant start up pain in the morning and after sitting. She has a significant history of spinal stenosis and low back pain, she has done physical therapy inthe past for this. Over her left hip, she complains mostly of buttock pain and she feels like this is more related to her spinal stenosis. ROS: No fevers, chills, nausea, vomiting, or symptoms of infection. Eating and drinking well.Sleeping well at night. No chest pain or SOB. over this last winter she was relatively healthy except for a small cold. 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 She is followed by a neurologist and wears orthotics for this. She is also been struggling with hemorrhoids, she is a colonoscopy upcoming this . Social History: she is going on a trip to [facility] coming up shortly. Physical Exam: Well-appearing female in no acute distress. Alert and Oriented x 3 and answers all questions appropriately. The incision is well healed, with no signs of infection over right knee. Both hips without obvious deformity, skin is clean and dry, leg lengths equal when supine. Both calves are soft and non-tender, negative Shama's. Pedal pulses +2/4 and equal. Sensation equal and intact in both legs. +5/5 strength in EHL, FHL, tibialis anterior, gastrocnemius. Able to SLR both legs, no lag. Both hips without focal tenderness over trochanteric bursa or IT band, left hip sore over PSIS and some sciatic notch. Right Hip ROM: Some groin pain triggered with maximum flexion and also internal rotation. Flexion 110??, external rotation 30??, internal rotation barely to 0??, abduction 40??, adduction 10??. Left Hip ROM: No groin pain with motion but there is some low back and buttock pain with maximum flexion. Flexion 115??, external rotation 45??, internal rotation 10??, abduction 40??, adduction 15??. Post Op Right Knee Exam: Gait Abnormality: Normal Knee ROM: Extension:0 Flexion: 120 Alignment: 0-4 degrees Neutral Stability: A/P Translation <5mm. Varus <5mm Valgus <5mm Extension La degrees or less Patella Tracking: Normal Pulses Palpable: Right PT: Yes Right DP:Yes Motor/Sensory: Distal Motor: Normal Distal Sensory: Normal Quadriceps Strength: -5 Right knee mildly tender around the medial side over her pes anserine. X-RAYS: 12/09/2013 Technique - AP view of both knees, as well as a lateral view of the right knee. Findings The arthroplasty equipment by both knees appears unchanged in position/alignment. No new periprosthetic lucency is identified on either side. No significant change on the lateral projection of the right knee, allowing for differences in patient positioning /radiographic projection, which is more comparable to 06/04/2012 repeat right knee lateral view. Question minimal residual joint effusion. Impression- No significant interval change identified. Technique AP view of the pelvis including both hips, as well as AP and lateral views of the right hip with Mag marker and AP and lateral views of the left hip with Mag marker. Findings Moderate to severe right hip joint space narrowing, minimally progressed from prior, with increased marginal productive changes as well as some bony buttressing along the femoral neck. Mild degenerative change of the left hip appears similar to prior. Impression Progression of right hip arthropathy. No definite change on the left. ASSESSMENT/PLAN: This patient was reviewed in detail with Dr. Lau. Regarding her right TKA revision, she is 1 year out and overall doing well with the joint itself, her motion has progressed well. She complains of some sense of weakness in her quadriceps, this is minimal on exam but she thinks that it gets sore because it is not as strong. We discussed options for proceeding, I did offer her physical therapy but she would like to work on this on her own. We reviewedexercises. She will let us know if this is not helping, I do suspect some component of her right quadricep weakness is actually from her hip pain and arthritis. Otherwise we'll plan to followup in one year with new x-rays of her right knee. Sooner if needed. Regarding her bilateral hip pain, I agree that on exam her left hip discomfort in the buttock seems more consistent with her spinal stenosis. Her right hip pain however is consistent with increased degenerative changes on x-ray, significant narrowing in the joint space. We discussed the arthritis ladder and treatment options, she would like to try an intra-articular steroid injection in the right hip for diagnostic and therapeutic purposes.She will let us know what the results of this are. Plan to followup in 6 months regarding her right hip to see her she is progressing. We will check inon her right knee at the same time. We discussed the appropriate precautions surrounding dental prophylaxis. I stressed that she should call the office for a prescription prior to any further dental work for the lifetime of the joint replacement. We also discussed maintaining good foot care and giving prompt attention to any source of in fection throughout the body including foot ulcers and urinary tract infections. Signed: QUITA NASH 12/09/2013 documented in this encounter Plan of Treatment Not on filedocumented as of this encounter Procedures Procedure Name Priority Date/Time Associated Diagnosis Comme nts XR FLUORO Routine 12/19/2013 1:55 PM Osteoarthritis of righ t Results for this INJECTION FL DRAIN EDT hip with pain procedur e are in LARGE JT the results section. documented in this encounter Results XR Fluoro injection FL drain large JT (12/19/2013 1:55 PM EDT) Anatomical Region Laterality Modality N/A Radiographic Imaging Specimen (Source) Anatomical Collection Method Collection Time Re ceived Time Location / / Volume Laterality 12/19/2013 1:55 PM EDT Impressions 12/20/2013 3:11 PM EDT IMPRESSION: Uneventful right hip injection under fluoroscopy. ?? Attending: KAYDEN SALDIVAR MD Narrative 12/20/2013 3:11 PM EDT HISTORY: right hip Pain ?? Right hip INJECTION UNDER FLUOROSCOPY ?? TECHNIQUE: After an extensive conversati on with the patient regarding risks and benefits, oral and written consent were obtained. The patient was placed supine on the fluoroscopic table. The right hip was prepped and draped in the usual aseptic manner. 1% Lidocaine was used to achieve local anesthesia. Under fluoroscopic guidance, 22 gauge spinal n eedle was advanced into the joint space. Small amount of air was injected to the document needle placement. A mixture of Ropivacaine and triamcinolone acetonide was injected. All needles removed at end of procedure. ?? FINDINGS: ?? 1. Small amount of injected air in the r ight hip joint space. ?? 2. PAIN SCORE: ?? Before: 4 /10 ?? After: 3 /10 ?? 3. Medications: ?? Lidocaine 1% - <5 ml, for subcutaneous a nesthesia ?? Ropivacaine HCL 0.5% - 3 ml, ?? Triamciolone Acetonide - 30 mg, ?? Fluoroscopy time: 8 sec ?? COMPLICATIONS: None immediate. ?? POST-PROCEDURE CARE: Information regardi ng monitoring of infection, post- procedural pain and management of steroi d flare were reviewed with patient. ?? Procedure Note Kayden Saldivar MD - 12/20/2013Forma tting of this note might be different from the original. HISTORY: right hip Pain Right hip INJECTION UNDER FLUOROSCOPY TECHNIQUE: After an extensive conversati on with the patient regarding risks and benefits, oral and written consent were obtained. The patient was placed supine on the fluoroscopic table. The right hip was prepped and draped in the usual aseptic manner. 1% Lidocaine was used to achieve local anesthesia. Under fluoroscopic guidance, 22 gauge spinal n eedle was advanced into the joint space. Small amount of air was injected to the document needle placement. A mixture of Ropivacaine and triamcinolone acetonide was injected. All needles removed at end of procedure. FINDINGS: 1. Small amount of injected air in the r ight hip joint space. 2. PAIN SCORE: Before: 4 /10 After: 3 /10 3. Medications: Lidocaine 1% - <5 ml, for subcutaneous a nesthesia Ropivacaine HCL 0.5% - 3 ml, Triamciolone Acetonide - 30 mg, Fluoroscopy time: 8 sec COMPLICATIONS: None immediate. POST-PROCEDURE CARE: Information regardi ng monitoring of infection, post- procedural pain and management of steroi d flare were reviewed with patient. IMPRESSION IMPRESSION: Uneventful right hip injecti on under fluoroscopy. Attending: KAYDEN SALDIVAR MD Ellis Lau [place] [facility] FLUORO ORDERABLES documented in this encounter Visit Diagnoses Diagnosis S/P revision of total knee, right - Prim jessica Osteoarthritis of right hip with pain Osteoarthrosis, unspecified whether gene ralized or localized, pelvic region and thigh documented in this encounter Care Teams Intermodal Dispatcher Relationship Specialty Start Date End Date Javi Izaguirre DO PCP - General 06/22/[address] [place] [address] documented as of this encounter
--- OUTSIDE RECORDS SUMMARY | 2022-04-22 01:44 | XMS_ITS | Encounter Summary ---
:1945 Author Organization [facility] Address [address] [place] [address] Care Team Providers Name Role Phone Javi Izaguirre DO Primary Care Provider Encounter Details Date Type Department Care Team Description 01/04/2013 Anti-Coag Orthopaedics at [facility] [place] Petrona Vee Polyethylene wear of Telephone Visit [facility] GEMA Block right knee prosthesis Drive (Primary Dx) [place] [id number] Social History Tobacco Use Types Packs/Day Years Used Date Former Smoker Smokeless Tobacco: Never Used Alcohol Use Standard Drinks/Week Comments Yes 21 (1 standard drink = 0.6 oz pure alcoh ol) Sex Assigned at Date Recorded Female 03/31/2021 3:33 PM EDT documented as of this encounter Progress Notes Petrona Varela RN - 01/04/2013 8:08 AM EDT Anticoagulation Therapy Telephone Note: Sofía Mcdonald 1945 Surgeon:Sid Indication: DVT Prophylaxis S/P Joint Replacement Duration of treatment: 4 weeks Anticipated End Date:January 18, the Coumadin INR:2.6 Drawn by:Sarai PATIÑO Patient Contact Preference: Message left on answering [...] Diagnosis Comme nts EXTERNAL LAB RESULTS Routine 01/03/2013 Results for this procedure are i n the results section . 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
--- OUTSIDE RECORDS SUMMARY | 2022-04-22 01:44 | XMS_ITS | Encounter Summary ---
:1945 Author Organization [facility] [place] [address] Care Team Providers Name Role Phone DmitriyJavi agrawal Primary Care Provider Encounter Details Date Type Department Care Team Description 07/01/2014 Abstract Shannon Vaca Conversion Apd Conversion, Flowsheet Results Provider, [address] [place] [address] Social History Tobacco Use Types Packs/Day [...] Sign Reading Time Taken Comments Blood Pressure 136/82 07/01/2014 10:32 Sourced from AP D AM EST Conversion Pulse - - Temperature - - Respiratory Rate - - Oxygen Saturation - - Inhaled Oxygen - - Concentration Weight 71.3 kg (157 lb 3 07/01/2014 10:32 Sourced from APD oz) AM EST Conversion Height 165 cm (5' 4.96) 07/01/2014 10:32 Sourced from APD AM EST Conversion Body Mass Index 26.19 07/01/2014 10:32 AM EST documented in this encounter Plan of Treatment Not on filedocumented as of this encounter Visit Diagnoses Not on filedocumented in this encounter Care Teams Security Field Supervisor Relationship Specialty Start Date End Date Javi Izaguirre DO PCP - General 06/22/[address] [place] [address] documented as of this encounter
--- OUTSIDE RECORDS SUMMARY | 2022-04-22 01:45 | XMS_ITS | Encounter Summary ---
:1945 Author Organization [facility] [place] [address] Care Team Providers Name Role Phone Dmitriy Javi BURKS Primary Care Provider Reason for Visit Reason Comments Chemotherapy Taxol # 12 Encounter Details Date Type Department Care Team Description 02/10/2011 Office Visit Hematology Oncology at CLINIC, DR Guadalupe ncer of breast (Primary Dx); [facility] HEM/ONC Malignant neoplasm of breast (female), unspecified site [address] [place] [phone] Social History Tobacco Use Types Packs/Day Years Used Date Never Smoker Sex Assigned at Date Recorded Female 03/31/2021 3:33 PM EDT documented as of this encounter Progress Notes Clarissa Martinez RN - 02/10/2011 1:49 PM EDT INFUSION THERAPY ADMINISTRATION NOTES TIME TREATMENT STARTED: 1230 TIME TREATMENT ENDED: 1500 DIAGNOSIS: Breast CA PROTOCOL: n/a CYCLE #: week # 12 REASON FOR VISIT: Taxol Infusion SUBJECTIVE Mrs. Mcdonald offers no complaints. She is excited to be completing chemotherapy today and reports thatshe is having her mediport removed on Wednesday 02/14. OBJECTIVE LAB DATA: wbc 4.36, hgb 12.5, plts 276k, anc 3.14 IV ACCESS: Mediport Left Chest BLOOD RETURN: no, dye study done previously to confirm correct placement and patency ANY S/S OF INFECTION/EXTRAVASATIONS: No IV FLUSHED WITH: 20cc NS and 500 units Heparin IV DISCONTINUED: yes HYDRATION, RATE, START TIME, STOP TIME NS @ KVO, [id number] Pre administration: Chemotherapy orders independently verified for drug name, route, and dosage per patient's height, weight and BSA by Clarissa Martinez RN and Rosi Arevalo RN. At time of administration: Immediately prior to administration Gisell Martinez RN and Shayan Arevalo RN, independently verified the patient's identity using the patient's name and date of , and confirmed the drug name, dose, volume, route, expiration date/time and rate of administration delivered via IV pump. Consent for treatment verified in CIS. REACTIONS (DESCRIPTION, TIME, INTERVENTION AND EFFECTIVENESS) none ASSESSMENT Mrs. Mcdonald was awake, alert and he tolerated treatment well. PLAN Patient is scheduled to have port removal on 02/15. She is scheduled to see radiation oncology.She was reminded to call in the interim with any questions/concerns. documented in this encounter Plan of Treatment Not on filedocumented as of this encounter Visit Diagnoses Diagnosis Cancer of breast - Primary Malignant neoplasm of breast (female), u nspecified site Malignant neoplasm of breast (female), u nspecified site documented in this encounter Administered Medications Inactive Administered Medications - up to 3 most recent administrations Medication Order MAR Action Action Date Dose Rate Site dexamethasone sodium (PF) 10 Given 02/10/2011 1:15 PM EDT 236 mL/hr mg, ondansetron (ZOFRAN) 16 mg in sodium chloride 0.9% 59 mL IVPB Intravenous, at 236 mL/hr, ONCE, On Delaney 02/10/11 at 1300, 1 dose famotidine (PEPCID) 20 mg, Given 02/10/2011 12:50 PM EDT 210 mL/hr diphenhydrAMINE (BENADRYL) 25 mg in sodium chloride 0.9% 52.5 mL IVPB Intravenous, at 210 mL/hr, ONCE, On Mon02/10/11 at 1300, 1 dose paclitaxel (TAXOL) 143 mg in New Bag 02/10/2011 1:45 PM EDT 143 mg 273.8 mL/hr dextrose 5% Non-PVC 273.8333 mL chemo infusion 143 mg, Intravenous, ONCE, 1 dose, On Delaney 02/10/11 at 1300, Administer over 1 Hours documented in this encounter Care Teams Remote Control Assembler Relationship Specialty Start Date End Date Javi Izaguirre DO PCP - General 06/22/[address] [place] [address] documented as of this encounter
--- OUTSIDE RECORDS SUMMARY | 2022-04-22 01:45 | XMS_ITS | Encounter Summary ---
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 letrozole (FEMARA) 2.5 Take 1 tablet by mouth 90 tablet 4 0 09/26/2012 12/20/2013 mg tabletIndications: daily. Breast cancer omeprazole (PRILOSEC) Take 20 mg by mouth 0 02/11/2013 20 mg capsule daily. acetaminophen Take 1,000 mg by mouth 0 12/22/2012 (TYLENOL) 500 mg every 6 hours as tablet needed. LORazepam (ATIVAN) 1 Take 1 mg by mouth 0 12/11/2014 mg tablet every 6 hours as needed. Meclizine 25 mg Cap Take 1 tablet by mouth 0 12/19/2012 as needed. documented as of this encounter Plan of Treatment Not on filedocumented as of this encounter Visit Diagnoses Not on filedocumented in this encounter Care Teams Alarm Installation Technician Relationship Specialty Start Date End Date Javi Izaguirre DO PCP - General 06/22/[address] [place] [address] documented as of this encounter
--- OUTSIDE RECORDS SUMMARY | 2022-04-22 01:45 | XMS_ITS | Encounter Summary ---
:1945 Author Organization [facility] [place] [address] Care Team Providers Name Role Phone Javi Izaguirre DO Primary Care Provider Encounter Details Date Type Department Care Team Description 06/27/2012 Orders Only Hematology Oncology at [facility] Bre [facility] cancer (Primary [facility] RN Dx) [address] [place] [phone] Social History Tobacco Use Types Packs/Day Years Used Date Never Smoker Smokeless Tobacco: Never Used Alcohol Use [...] site documented in this encounter Care Teams Lead Solutions Architect Relationship Specialty Start Date End Date Javi Izaguirre DO PCP - General 06/22/[address] [place] [address] documented as of this encounter
--- OUTSIDE RECORDS SUMMARY | 2022-04-22 01:45 | XMS_ITS | Encounter Summary ---
:1945 Author Organization [facility] [place] [address] Care Team Providers Name Role Phone Javi Izaguirre Primary Care Provider Reason for Visit Reason Comments Right Knee Pain Encounter Details Date Type Department Care Team Description 12/10/2012 Office Visit Orthopaedics at [facility] [place] [address] Cancer of female breast (Primary Dx); [facility] Alejandra Beckman RN Pain in limb; Drive Debility, unspecified; [place] [phone] Knee pain; [phone] Mechanical loos ening of prosthetic joint Social History Tobacco Use Types Packs/Day Years Used Date Former Smoker Smokeless Tobacco: Never Used Alcohol Use Standard Drinks/Week Comments Yes 21 (1 standard drink = 0.6 oz pure alcoh ol) Sex Assigned at Date Recorded Female 03/31/2021 3:33 PM EDT documented as of this encounter Last Filed Vital Signs Vital Sign Reading Time Taken Comments Blood Pressure 126/80 12/10/2012 12:27 PM EDT Pulse 70 12/10/2012 12:27 PM EDT Temperature - - Respiratory Rate - - Oxygen Saturation - - Inhaled Oxygen Concentration - - Weight 69.9 kg (154 lb) 12/10/2012 12:27 PM EDT Height 166.4 cm (5' 5.5) 12/10/2012 12:27 PM EDT Body Mass Index 25.24 12/10/2012 12:27 PM EDT documented in this encounter Progress Notes Alejandra Beckman RN - 12/10/2012 11:57 AM EDT This note is recorded by Alejandra Beckman RN acting as a scribe for Rae Garrison MD. PREOPERATIVE VISIT HISTORY OF PRESENT ILLNESS: [...] implanted approximately 11 years ago, is a [employer]. The patient reports that the pain has [...] proceed with a polyethylene swab only using PassHat implant. If either we cannot balance the MCL or the components are loose ormalposition, I will switch likely to a [employer] TC 3 rotating platform implant with stems and possible augments and sleeves. We will proceed with revision total knee arthroplasty, major benefits are voodoo of ambulatory capacity and diminution of pain, [...] options including institutional versus home or self-care. Rae Garrison MD documented in this encounter Miscellaneous Notes Miscellaneous - Provider, Scanning - 12/25/2012 8:51 AM EDT documented in this encounter Plan of Treatment Not on filedocumented as of this encounter Procedures Procedure Name Priority Date/Time Associated Comments Diagnosis DIFFERENTIAL, Routine 12/10/2012 12:14 Results fo r this AUTOMATED PM EDT procedure are i n the results section. TYPE AND SCREEN, SDP Routine 12/10/2012 12:14 Pain in limb (FUTURE SURGERY, [facility] PM EDT SAME DAY PROGRAM ONLY) ABO/RH TYPING Routine 12/10/2012 12:14 Pain in limb Results fo r this PM EDT procedure are i n the results section. SEDIMENTATION RATE Routine 12/10/2012 12:14 Pain in limb Resul ts for this PM EDT procedure are i n the results section. PROTHROMBIN TIME Routine 12/10/2012 12:14 Pain in limb Results for this PM EDT procedure are i n the results section. CBC (WITH DIFF) Routine 12/10/2012 12:14 Pain in limb Results for this PM EDT procedure are i n the results section. ANTIBODY SCREEN Routine 12/10/2012 12:14 Pain in limb Results for this PM EDT procedure are i n the results section. CRP, CARDIAC RISK (HS Routine 12/10/2012 12:14 Pain in limb Re sults for this CRP) PM EDT procedure are i n the results section. PROTEIN, TOTAL Routine 12/10/2012 12:14 Pain in limb Results f or this PM EDT procedure are i n the results section. ALBUMIN LEVEL Routine 12/10/2012 12:14 Pain in limb Results fo r this PM EDT procedure are i n the results section. BASIC METABOLIC PANEL Routine 12/10/2012 12:14 Pain in limb Re sults for this (NON-FASTING) PM EDT procedure are in the results section. URINE CULTURE Routine 12/10/2012 12:08 Debility, Results fo r this PM EDT unspecified procedure are i n the results section. documented in this encounter Results (ABNORMAL) Differential, Automated (12/10/2012 12:14 PM EDT) [facility] Method Time Signature Neutrophils % 72.3 (H) 34.0 - CERNER 71.0 % MILLENNIUM Neutr Abs (ANC) 5.09 1.50 - CERNER 6.30 MILLENNIUM x10(3)/mc L Lymphocytes % 20.5 19.0 - CERNER 53.0 % MILLENNIUM Lymphocytes Abs 1.4 1.0 - 3.6 CERNER x10(3)/mc MILLENNIUM L Monocytes % 5.3 4.0 - CERNER 13.0 % MILLENNIUM Monocyte Abs 0.4 0.2 - 1.0 CERNER x10(3)/mc MILLENNIUM L Eosinophils % 1.7 0.0 - 7.0 CERNER % MILLENNIUM Eosinophils Abs 0.1 0.0 - 0.5 CERNER x10(3)/mc MILLENNIUM L [...] Location / / Volume Laterality Blood specimen 12/10/2012 12:14 3 (specimen) PM EDT 12:58 PM EDT Authorizing Provider Result Christy Garrison MD HEMATOLOGY ORDERABLES Performing Organization Address City/State/ZIP [facility] [place] [address] CERNER MILLENNIUM Antibody screen (12/10/2012 12:14 PM EDT) Analysis Performed At Path logist Time Signature Ab Screen Negative CERNER Interp MILLENNIUM Expires at [id number] CERNER 2358 on: MILLENNIUM Specimen Anatomical Collection Method Collection Time Receive d Time (Source) Location / / Volume Laterality Blood specimen 12/10/2012 12:14 3 (specimen) PM EDT 12:33 PM EDT Resulting Agency Comment Spec In Lab Rae Garrison MD BLOOD BANK ORDERABLES Performing Organization Address City/State/[place] [address] CERNER MILLENNIUM ABO/Rh Typing (12/10/2012 12:14 PM EDT) athologist [facility] ABORh Type A Neg CERNER MILLENNIUM Specimen Anatomical Collection Method Collection Time Receive d Time (Source) Location / / Volume Laterality Blood specimen 12/10/2012 12:14 3 (specimen) PM EDT 12:33 PM EDT Resulting Agency Comment Spec In Lab Rae Garrison MD BLOOD BANK ORDERABLES Performing Organization Address City/State/ZIP Code Phon e Number [address] CERNER MILLENNIUM Sedimentation rate (12/10/2012 12:14 PM EDT) athologist [facility] Sed Rate 15 0 - 20 CERNER mm/hr MILLENNIUM Specimen Anatomical Collection Method Collection Time Receive d Time (Source) Location / / Volume Laterality Blood specimen 12/10/2012 12:14 3 (specimen) PM EDT 12:58 PM EDT Resulting Agency Comment Spec In Lab Rae Garrison MD HEMATOLOGY ORDERABLES Performing Organization Address City/[facility]/ZIP Code Phon e Number [address] CERNER MILLENNIUM High Sensitivity CRP (12/10/2012 12:14 PM EDT) athologist [facility] CRP High Sens 8.4 mg/L CERNER MILLENNIUM Comment: Interpretations: 1) For cardiac risk assessment, two valu es (fasting or nonfasting sample acceptable) taken at least 2 weeks apart , should be averaged to provide a more reliable estimate of marker level. ??Thi s laboratory uses the recommendations from the AHA/CDC Scientific Statement fo r interpretations of future risks of cardiovascular events: ? <1.0 mg/L: low risk 1.0 - 3.0 mg/L: moderate risk >3.0 mg/L: high risk groups for future c ardiovascular events 2) The general reference range of appare ntly healthy individuals using this test is <5.0 mg/L (derived from the test package insert) A few words of caution: For cardiac asse ssment, when a value >10 mg/L is encountered, there should be a search fo r an acute inflammatory condition or infection (in patients with acute inflam mation, the concentration can increase to >500 mg/L). ??The >10 mg/L should be discarded if such a situation exists, since the risk for coronary heart diseas e cannot be provided, and a repeat specimen, taken at least two weeks after resolution of the acute inflammatory condition, may allow for appraisal of co ronary risk information. Please note that significantly decreased CRP values may be obtained from samples taken from patients who have bee n treated with carboxypenicillins. References: 1. Neena VILCHIS et. al. ??AHA/CDC Scientif ic Statement: Markers of Inflammation and Cardiovascular Disease. ??Circulatio n 2003; 107:499-511 Ridker PM. ??Clinical applications of C- reactive protein for cardiovascular disease detection and prevention. ??Circ ulation 2003; 107:363-369 Specimen Anatomical Collection Method Collection Time Receive d Time (Source) Location / / Volume Laterality Blood specimen 12/10/2012 12:14 3 (specimen) PM EDT 12:50 PM EDT Resulting Agency Comment Spec In Lab Rae Garrison MD CHEMISTRY ORDERABLES Performing Organization Address City/[facility]/ZIP Code Phon e Number [address] CERNER MILLENNIUM Albumin Level (12/10/2012 12:14 PM EDT) athologist Signature Albumin 4.3 3.2 - 5.2 CERNER gm/dL MILLENNIUM Specimen Anatomical Collection Method Collection Time Receive d Time (Source) Location / / Volume Laterality Blood specimen 12/10/2012 12:14 3 (specimen) PM EDT 12:50 PM EDT Resulting Agency Comment Spec In Lab Rae Garrison MD CHEMISTRY ORDERABLES Performing Organization Address [facility] [place] [address] CERNER MILLENNIUM Protein, total (12/10/2012 12:14 PM EDT) athologist Signature Total Protein 7.9 6.4 - 8.3 CERNER gm/dL MILLENNIUM Specimen Anatomical Collection Method Collection Time Receive d Time (Source) Location / / Volume Laterality Blood specimen 12/10/2012 12:14 3 (specimen) PM EDT 12:50 PM EDT Resulting Agency Comment Spec In Lab Authorizing Provider Result Christy Garrison MD CHEMISTRY ORDERABLES Performing Organization Address [facility] Phon e Number [address] CERNER MILLENNIUM Prothrombin Time (12/10/2012 12:14 PM EDT) athologist Signature PT 12.8 12.0 - 15.0 CERNER sec MILLENNIUM Comment: [facility] Transfusion Committee Guidelines: I NR less than 2.0, PTT less than OR equal to 43.5 seconds, or Fibrinogen gre ater than or equal to 100 mg/dl indicate adequate procoagulant activity for hemostasis in patients without underlying bleeding disorders. INR 0.9 0.9 - 1.1 CERNER MILLENNIUM Specimen Anatomical Collection Method Collection Time Receive d Time (Source) Location / / Volume Laterality Blood specimen 12/10/2012 12:14 3 (specimen) PM EDT 12:57 PM EDT Resulting Agency Comment Spec In Lab Authorizing Provider Result Christy Garrison MD HEMATOLOGY ORDERABLES Performing Organization Address [facility] e Number [address] CERNER MILLENNIUM (ABNORMAL) Basic Metabolic Panel (non-fasting) (12/10/2012 12:14 PM EDT) athologist Signature Glucose Lvl 92 60 - 199 CERNER mg/dL MILLENNIUM Comment: Diabetes: >=200 mg/dL plus symp toms BUN 19 (H) 8 - 18 mg/dL CERNER MILLENNIUM Creatinine 0.67 (L) 0.70 - 1.20 mg/dL CERNER MILL ENNIUM Comment: Please note that the pediatric reference intervals supplied above were not validated at [facility]. Results from pediatri c patients should be interpreted in conjunction to the patient's age, height and muscle mass. Sodium 139 135 - 145 mmol/L CERNER YONNY NIUM Potassium 4.1 3.5 - 5.0 mmol/L CERNER YONNY NIUM Comment: Please note: ??Patients with WBC >100,00 0 may have falsely elevated Potassium levels. ??For accurate Potassium quantif ication in these patients send serum separator tube (gold top) for subsequent determinations. ??Contact the Clinical Chemistry Laboratory if there are any qu estions. Chloride 104 98 - 107 mmol/L CERNER MILLENN IUM CO2 24 22 - 31 mmol/L CERNER MILLENNI UM Anion Gap 11 5 - 15 mmol/L CERNER MILLENNIU M Calcium 9.1 8.5 - 10.5 mg/dL CERNER YONNY NIUM [...] Location / / Volume Laterality Blood specimen 12/10/2012 12:14 3 (specimen) PM EDT 12:50 PM EDT Resulting Agency Comment Spec In Lab Rae Garrison MD CHEMISTRY ORDERABLES Performing Organization Address City/State/[place] [address] CERNER MILLENNIUM (ABNORMAL) CBC (with Diff) (12/10/2012 12:14 PM EDT) P athologist Signature WBC 7.0 4.0 - 10.0 CERNER x10(3)/mcL MILLENNIUM RBC 4.56 3.93 - CERNER 5.22 MILLENNIUM x10(6)/mcL Hemoglobin 14.1 11.2 - CERNER 15.7 gm/dL MILLENNIUM Hematocrit 43.0 34.0 - CERNER 45.0 % MILLENNIUM MCV 94.3 (H) 79.0 - CERNER 94.0 fL MILLENNIUM MCH 30.9 26.6 - CERNER 32.2 pg MILLENNIUM MCHC 32.8 32.0 - CERNER 36.5 gm/dL MILLENNIUM Platelets 268 145 - 370 CERNER x10(3)/mcL MILLENNIUM RDWSD 50.3 (H) 35.0 - CERNER 46.0 fL MILLENNIUM RDWCV 14.8 (H) 10.9 - CERNER 14.4 % MILLENNIUM MPV 9.9 9.0 - 12.0 CERNER fL MILLENNIUM Specimen Anatomical Collection Method Collection Time Receive d Time (Source) Location / / Volume Laterality Blood specimen 12/10/2012 12:14 3 (specimen) PM EDT 12:58 PM EDT Resulting Agency Comment Spec In Lab Rae Garrison MD HEMATOLOGY ORDERABLES Performing Organization Address City/State/[place] [address] [facility] MILLENNIUM Urine culture Clean Catch Urine (12/10/2012 12:08 PM EDT) [facility] Method Time Signature Urine Culture CERNER ? Patient Name: SOFÍA LUX ? Ordered By : RAE GARRISON ? MR#: [id number] ?LOC: ??3D ? /Sex: ??1945 (67 years), ? Female ? PROCEDURE: Urine Culture ?SOURCE: U CC ? COLLECTED: 12/10/2012 12:08 ? STARTED: 12/10/2012 12:25 ? FINAL REPORT ? Final Report ? Verified:12/11/2012 08:23 ? No growth (Less than 1,000 cfu/ml). ? Specimen (Source) Anatomical Collection Method Collection Time Re ceived Time Location / / Volume Laterality Urine specimen 12/10/2012 12:08 3 obtained by clean PM EDT 12:25 PM E DT catch procedure (specimen) Resulting Agency Comment Spec In Lab Rae Garrison MD MICROBIOLOGY - GENERAL ORDER DECLAN Performing Organization Address City/State/[place] [address] [facility] documented in this encounter Visit Diagnoses Diagnosis Cancer of female breast - Primary Malignant neoplasm of breast (female), u nspecified site Pain in limb Debility, unspecified Knee pain Pain in joint, lower leg Mechanical loosening of prosthetic joint documented in this encounter Administered Medications Inactive Administered Medications - up to 3 most recent administrations Medication Order MAR Action Action Date Dose Rate Site mupirocin (BACTROBAN) 2 % ointment Given 12/10/2012 1:13 PM EDT Topical, 2 TIMES DAILY, First dose on 12/16/12 at 0900, Until Discontinued, Patient is instructed to administer Mupirocin into the nares twice daily starting 5 days prior to surgery date. Additional instructions given to patient at time medication was dispensed. documented in this encounter Care Teams Barge Engineer Relationship Specialty Start Date End Date Javi Izaguirre DO PCP - General 06/22/[address] [place] [address] documented as of this encounter
--- OUTSIDE RECORDS SUMMARY | 2022-04-22 01:45 | XMS_ITS | Encounter Summary ---
:1945 Author Organization [facility] [place] [address] Care Team Providers Name Role Phone DmitriyJavi agrawal Primary Care Provider Reason for Visit Reason Comments Radiation Follow-up Encounter Details Date Type Department Care Team Description 06/11/2012 [facility] ([facility] Dx[facility] [place] [address] [place], [place] RADIATION ONCOL OGY [address] [place] [address] [phone] (Wo rk) Social History Tobacco Use Types Packs/Day Years Used Date Never Smoker Smokeless Tobacco: Never Used Alcohol Use Standard Drinks/Week Comments Yes 21 (1 standard drink = 0.6 oz pure alcoh ol) Sex Assigned at Date Recorded Female 03/31/2021 3:33 PM EDT documented as of this encounter Last Filed Vital Signs Vital Sign Reading Time Taken Comments Blood Pressure 133/69 06/11/2012 12:53 PM EST Pulse 70 06/11/2012 12:53 PM EST Temperature - - Respiratory Rate 16 06/11/2012 12:53 PM EST Oxygen Saturation 98% 06/11/2012 12:53 PM EST Inhaled Oxygen Concentration - - Weight 70.8 kg (156 lb) 06/11/2012 12:53 PM EST Height - - Body Mass Index 25.96 06/05/2012 10:54 AM EST documented in this encounter Patient Instructions Patient InstructionsJeanine Lord MD - 06/11/2012 1:36 PM EST Your exam is good. We will mail you a letter in 5 months with an appointment to see me in 6 months. documented in this encounter Progress Notes Jeanine Lord MD - 06/11/2012 1:35 PM EST Subjective: Patient ID: Sofía Mcdonald is a 66 y.o. female s/p xrt completed 13.5 mos ago. HPI Xrt to L breast & L axilla for stage IIA, pT1c pN1mi, IDC, low gr, ERPR+, [id number]-, s/p partial mastectomy & SNB followed by reexcision & then adjuvant chemo, followed by xrt. Femara started after xrt. 12/19/11 dx'ic L mmg: BENIGN. 06/05/12 FU w/Dr. Cuevas, @ which time femara changed to neumann due to arthralgias & myalgia. Sched'd FU today. Irrad'd area w/o problem. Energy level ok. Review of Systems Sees a neurologist tomorrow for followup of her M.S. Objective: Physical Exam Constitutional: She is oriented to person, place, and time. She appears well- developed and well-nourished. No distress. HENT: Head: Normocephalic. Mouth/Throat: No oral lesions. No oropharyngeal exudate, posterior oropharyngeal edema, posterior oropharyngeal erythema or tonsillar abscesses. Eyes: Conjunctivae and EOM are normal. Right eye exhibits no discharge. Left eye exhibits no discharge. No scleral icterus. Neck: No tracheal deviation present. No thyromegaly present. Pulmonary/Chest: Effort normal and breath sounds normal. No stridor. No respiratory distress. She has no wheezes. She has no rales. She exhibits no tenderness. Right breast exhibits no inverted nipple,no mass, no nipple discharge, no skin change and no tenderness. Left breast exhibits no inverted nipple, no mass, no nipple discharge, no skin change and no tenderness. Abdominal: Soft. She exhibits no distension and no mass. No tenderness. She has no rebound and no guarding. Musculoskeletal: Normal range of motion. She exhibits no edema and no tenderness. Lymphadenopathy: She has no cervical adenopathy. She has no axillary adenopathy. Right: No supraclavicular adenopathy present. Left: No supraclavicular adenopathy present. Neurological: She is alert and oriented to person, place, and time. No cranial nerve deficit. She exhibits normal muscle tone. Coordination normal. Skin: She is not diaphoretic. Psychiatric: She has a normal mood and affect. Her behavior is normal. Judgment and thought content normal. Assessment and Plan: NED. Ocasio mmgs sched'd for 07/05/12. FU 6 mos. No problem-specific visit notes found for this encounter. documented in this encounter Plan of Treatment Not on filedocumented as of this encounter Visit Diagnoses Diagnosis Breast CA - Primary Malignant neoplasm of breast (female), u nspecified site documented in this encounter Care Teams Business Enterprise Officer Relationship Specialty Start Date End Date Javi Izaguirre DO PCP - General 06/22/10 [address] [place] [address] documented as of this encounter
--- OUTSIDE RECORDS SUMMARY | 2022-04-22 01:45 | XMS_ITS | Encounter Summary ---
:1945 Author Organization [facility] [place] [address] Care Team Providers Name Role Phone Wolf Izaguirre Primary Care Provider Encounter Details Date Type Department Care Team Description 02/15/2011 Hospital Encounter Radiology at [facility], [facility] Steve Cuevas MD [address] [place] [address] [address] [employer], [place] [address] [place] [address] Social History Tobacco Use Types Packs/Day Years Used Date Never Smoker Sex Assigned at Date Recorded Female 03/31/2021 3:33 PM EDT documented as of this encounter Last Filed Vital Signs Vital Sign Reading Time Taken Comments Blood Pressure 145/91 02/15/2011 8:00 AM EDT Pulse 68 02/15/2011 8:00 AM EDT Temperature 36.3 ??C (97.3 ??F) 02/15/2011 8:00 AM EDT Respiratory Rate 16 02/15/2011 8:00 AM EDT Oxygen Saturation - - Inhaled Oxygen Concentration - - Weight - - Height - - Body Mass Index - - documented in this encounter Medications at Time of Discharge Medication Sig Dispensed Refills Start Date End Date ondansetron (ZOFRAN) 8 mg Take 1 tablet by 20 tablet 2 07/201006/06/2011 tabletIndications: Breast mouth 3 times cancer daily as needed for Nausea. hydroCODone-acetaminophen Take 1-2 tablets 100 tablet 1 08/201006/06/2011 (VICODIN) 5-500 mg per by mouth every 6 tabletIndications: Breast hours as needed cancer for Pain (q 4 hr as needed for pain). Take 1-2 tabs every 4 hrs as needed for pain. diphenhydrAMINE (BENDARYL) Take 25 mg by 0 201004/12/2011 25 mg tabletIndications: mouth nightly as Breast cancer needed. GLUCOSAMINE SULFATE Take 500 mg by 0 11/04/2010 0 12/09/2011 (GLUCOSAMINE mouth 2 times ORAL)Indications: Breast daily. cancer LORazepam (ATIVAN) 0.5 mg Take 1-2 tablets 30 tablet 0 02/201112/09/2011 tabletIndications: Breast by mouth every 6 CA hours as needed for Anxiety (nausea or vomitting). ibuprofen (ADVIL;MOTRIN) 0 10/14/2010 04/05/2011 200 mg tablet OMEPRAZOLE (PRILOSEC ORAL) 0 1 12/09/2011 ERGOCALCIFEROL, VITAMIN 0 10/14/2010 0 12/09/2011 D2, (VITAMIN D ORAL) Lutein 10 mg Tab 0 10/14/2010 03/15/20 11 ACETAMINOPHEN (TYLENOL 0 10/14/2010 ORAL) sertraline (ZOLOFT) 50 mg 0 10/14/2010 04/12/2011 tablet CALCIUM CITRATE-VITAMIN D2 0 1 03/29/2011 ORAL multivitamin (THERAGRAN) 0 10/14/2010 12/09/2011 tablet Zinc 15 mg Tab 0 10/14/2010 03/15/2011 ASCORBIC ACID (VITAMIN C 0 10/14/2010 03/15/2011 ORAL) documented as of this encounter Progress Notes Fabiola Correa RN - 02/15/2011 10:08 AM EDT [facility] Vascular and Interventional Radiology Discharge Instructions for your Chest Port Removal Activity: Relax for the next 24 hours Diet: Drink plenty of fluids. Resume your regular diet Bandage: There is a sterile dressing consisting of small gauze with a clear dressing (Tegaderm). This dressing should be left in place for 48 hours. If the clear dressing becomes loose you should placetape over the edges to secure it in place. No tub baths, swimming or whirlpools for 1 week. No showering for 48 hours. Note: If you have steri-strips beneath your dressing, simply allow them to fall off. Do not peel them off. When to call your healthcare provider: If you notice bleeding from the incision on your chest, you should lie flat and apply firm pressureover the site for 10-15 minutes, keeping the site covered and call your doctor. If you are still bleeding after 10-15 minutes, reapply pressure, and have someone drive you to the nearest Emergency Department, or call 911. If you develop pain, redness, drainage or swelling at or around chest incision site. If you develop a fever equal to or greater than 101 degrees Fahrenheit. When to call the Interventional Radiology Department: Please call with any questions or concerns. Ifit is during regular office hours, please call [phone]. If it is after regular office hours, oron weekends or holidays, please call [phone] and ask to speak to the Web Production Assistant on callfor Interventional Radiology. 01/01/2010 Chio Campos PA - 02/14/2011 12:57 PM EDT PRE-PROCEDURE VIR NOTE Date of : 1945 Age: 65 y.o. PCP: WOLF IZAGUIRRE DO Referring Physician (if different): Mason Indication: No longer needed, treatment complete Planned Procedure: Port removal Chief Complaint/Diagnosis: 65 yo female with h/o breast cancer. She has completed her chemotherapy and her LIJ port that was placed 09/29/10 is no longer needed. Removal of port has been requested. Allergies Allergen Reactions ??? Metoclopramide Hcl Other (See Comments) Disorientation, flushing, fatigue ??? Prochlorperazine Maleate Other (See Comments) agitation Current outpatient prescriptions ordered prior to encounter Medication Sig Dispense Refill ??? ondansetron (ZOFRAN) 8 mg tablet Take 1 tablet by mouth 3 times daily as needed for Nausea. 20 tablet 2 ??? hydroCODone-acetaminophen (VICODIN) 5-500 mg per tablet Take 1-2 tablets by mouth every 6 hours as needed for Pain (q 4 hr as needed for pain). Take 1-2 tabs every 4 hrs as needed for pain. 100 tablet 1 ??? diphenhydrAMINE (BENDARYL) 25 mg tablet Take 25 mg by mouth nightly as needed. ??? GLUCOSAMINE SULFATE (GLUCOSAMINE ORAL) Take 500 mg by mouth 2 times daily. ??? LORazepam (ATIVAN) 0.5 mg tablet Take 1-2 tablets by mouth every 6 hours as needed for Anxiety (nausea or vomitting). 30 tablet 0 ??? ibuprofen (ADVIL;MOTRIN) 200 mg tablet ??? OMEPRAZOLE (PRILOSEC ORAL) ??? ERGOCALCIFEROL, VITAMIN D2, (VITAMIN D ORAL) ??? Lutein 10 mg Tab ??? ACETAMINOPHEN (TYLENOL ORAL) ??? sertraline (ZOLOFT) 50 mg tablet ??? CALCIUM CITRATE-VITAMIN D2 ORAL ??? multivitamin (THERAGRAN) tablet ??? Zinc 15 mg Tab ??? ASCORBIC ACID (VITAMIN C ORAL) Pertinent ROS: as per HPI Pertinent Family History: non contributory Social History: n/a Labs: Lab Results Component Value Date WBC 8.7 09/29/2010 HCT 45.8* 09/29/2010 PLATELET 261 09/29/2010 BUN 18 09/29/2010 Lab Results Component Value Date ALKPHOS 101 09/29/2010 AST 30 09/29/2010 ALBUMIN 4.3 09/29/2010 BILIDIR 0.1 09/29/2010 BILITOT 0.4 09/29/2010 ALT 27 09/29/2010 Imagin09/29/10 LIJ port Physical Exam: pending ASA: pending Mallampati Class: pending Assessment / Plan: Port removal Medications to discontinue: none Prophylactic antibiotic: ancef 1 gram IV Planned access site / position: supine Addendum 02/15/11 Lungs CTA Heart RRR ASA 3 Mallampati 2 Informed consent Alejandra Herndon RN - 02/11/2011 4:41 PM EDT [facility] NURSING DATABASE Name: SOFÍA LUX Date of : 1945 Address: [address] [address] (home) Referring Provider: Steve Cuevas Reason for Visit: Mediport removal Allergies Allergen Reactions ??? Metoclopramide Hcl Other (See Comments) Disorientation, flushing, fatigue ??? Prochlorperazine Maleate Other (See Comments) agitation Pertinent PMH: Patient Active Problem List Diagnoses Code ??? CIS - Entered not Verified ??? Breast cancer 174.9D Pertinent PSH: Past Surgical History Procedure Date ??? Created by interface Carpal tunnel left Procedure Date: 2009 ??? Created by interface Entered not Verified Procedure Date: 07/12/2010 ??? Created by interface Left total knee replacement Procedure Date: 2006 ??? Created by interface Right total knee replacement Procedure Date: 1997 Date/Procedure Comments: 09/29/2010 Mediport placement Versed 3.5mg IV, Fentanyl 225mcg IV, Ancef 1gm IV 10/16/10 Chest Port Removal No sedation Laboratory Results: Lab Results Component Value Date BUN 18 09/29/2010 Lab Results Component Value Date CREATININE 0.77 09/29/2010 Lab Results Component Value Date K 4.2 09/29/2010 Lab Results Component Value Date PLATELET 261 09/29/2010 Medications: Prior to Admission medications Medication Sig Start Date End Date Taking? Authorizing Provider ondansetron (ZOFRAN) 8 mg tablet Take 1 tablet by mouth 3 times daily as needed for Nausea. 01/28/11 Kiana Heard APRN hydroCODone-acetaminophen (VICODIN) 5-500 mg per tablet Take 1-2 tablets by mouth every 6 hours as needed for Pain (q 4 hr as needed for pain). Take 1-2 tabs every 4 hrs as needed for pain. 12/30/10 Steve Cuevas MD diphenhydrAMINE (BENDARYL) 25 mg tablet Take 25 mg by mouth nightly as needed. 12/09/10 Historical Provider, GLUCOSAMINE SULFATE (GLUCOSAMINE ORAL) Take 500 mg by mouth 2 times daily. 11/04/10 Historical Provider, LORazepam (ATIVAN) 0.5 mg tablet Take 1-2 tablets by mouth every 6 hours as needed for Anxiety (nausea or vomitting). 11/05/10 Steve Cuevas MD ibuprofen (ADVIL;MOTRIN) 200 mg tablet 10/14/10 OMEPRAZOLE (PRILOSEC ORAL) 10/14/10 ERGOCALCIFEROL, VITAMIN D2, (VITAMIN D ORAL) 10/14/10 Lutein 10 mg Tab 10/14/10 ACETAMINOPHEN (TYLENOL ORAL) 10/14/10 sertraline (ZOLOFT) 50 mg tablet 10/14/10 CALCIUM CITRATE-VITAMIN D2 ORAL 10/14/10 multivitamin (THERAGRAN) tablet 10/14/10 Zinc 15 mg Tab 10/14/10 ASCORBIC ACID (VITAMIN C ORAL) 10/14/10 documented in this encounter Procedure Notes Provider, Scanning - 02/24/2011 12:37 PM EDTAssociated Order(s): SCAN DOC: LAB; SCAN DOC: LAB Chio Campos PA - 02/15/2011 10:02 AM EDTProcedure(s): IR MEDIPORT PLACEMENT; IR MEDIPORT PLACEMENT Pre-Procedure Diagnose(s): Breast cancer; Breast cancer VIR PROCEDURE NOTE Procedure: Single lumen chest port removal. Indication for Procedure: Completion of chemotherapy. Intervention: Informed consent obtained. A moment of truth was performed and the patient and procedure correctly identified. IR nurse performed continuous monitoring of pulse, blood pressure and oxygensaturation during the procedure. Maximal sterile barrier technique prep and drape. Preprocedure IV antibiotics administered. Skin anesthetized with 1% lidocaine as well as bupivacainewith epinephrine. Blunt and sharp dissection used to remove, intact, single lumen port. Wound copiously irrigated. The pocket was closed using a two layer technique with absorbable suture material (2-0vicryl deep interrupted and 4-0 monocryl running subcuticular). Skin closed with indermil. Meds: 1 gm IV ancef Complications: None. Procedure performed by: Chio Campos PA-C Attending: Dr. Cheatham documented in this encounter Miscellaneous Notes Miscellaneous - Provider, Scanning - 02/23/2011 2:05 PM EDT documented in this encounter Plan of Treatment Not on filedocumented as of this encounter Procedures Procedure Name Priority Date/Time Associated Diagnosis Comme nts LAB SCAN 02/24/2011 12:37 PM Results for this EDT procedure are i n the results section. IR MEDIPORT Routine 02/15/2011 10:06 AM Results for this PLACEMENT EDT procedure are i n the results section. documented in this encounter Results SCAN DOC: LAB (02/24/2011 12:37 PM EDT) Narrative 02/24/2011 12:37 PM EDT Procedure Note Provider, Scanning - 02/24/2011 12:37 PM EDT Scanning Provider MEDIA MGR SCAN EXT ORDR/RSLT IR MEDIPORT PLACEMENT OR REMOVAL (02/15/2011 10:06 AM EDT) Anatomical Region Laterality Modality X-Ray Angiography Specimen (Source) Anatomical Collection Method Collection Time Re ceived Time Location / / Volume Laterality 02/15/2011 10:06 AM EDT Narrative 02/15/2011 3:15 PM EDT ?VIR ?? PROCEDURE NOTE ?Procedure: ?? Single lumen chest port removal. ? Indication ?? for Procedure: Completion of chemotherapy. ?Accession ?? #: [id number] ?Intervention: ?? Informe d consent obtained. A moment of truth was performed and the patient ?? and procedu re correctly identified. IR nurse performed continuous monitoring ?? of pu lse, blood pressure and oxygen saturation during the procedure. Maximal ?? sterile barrier technique prep and drape. ?Preprocedure ?? IV antibioti cs administered. Skin anesthetized with 1% lidocaine as well as ?? bupivacaine with epinephrine. Blunt and sharp dissection used to remove, ?? intact, single lumen port. Wound copiously irrigated. The pocket was closed ?? using a two layer t echnique with absorbable suture material (2-0 vicryl deep ?? interrupted and 4-0 monocryl running subcuticular). Skin closed with ?? indermil. ?Meds: ?? 1 gm IV ancef ?Complications: ?? None. ? Procedure ?? performed by: Chio Martinez els, PA-C ?Attending: ?? Dr. Cheatham ? ; ?? {CR} ? ; ?? {CR} ? ; ?? {CR} ? ; ?? {CR} ? ; ?? {CR} ?? Procedure Note Donavan Cheatham MD - 02/15/2011Formattin g of this note might be different from the original. VIR PROCEDURE NOTE Procedure: Single kaylie men chest port removal. Indication for Procedure: Completion of chemotherapy. Intervention: Informed consent o btained. A moment of truth was performed and the patient and procedure correctly identified. IR nurse performed continuous monitoring of pulse , blood pressure and oxygen saturation during the procedure. Maximal sterile barrier technique prep and drape. Preprocedure IV antibiotics admin istered. Skin anesthetized with 1% lidocaine as well as bupivacaine with ep inephrine. Blunt and sharp dissection used to remove, intact, single lumen por t. Wound copiously irrigated. The pocket was closed using a two layer tech nique with absorbable suture material (2-0 vicryl deep interrupted and 4-0 mon ocryl running subcuticular). Skin closed with indermil. Meds: 1 gm IV ance f Complications: None. Procedure performed by: Chio Campos PA-C Attending: Dr. Cheatham ; {CR} ; {CR} ; {CR} ; {CR} ; {CR} Steve Cuevas MD IMG IR ORDERABLES documented in this encounter Visit Diagnoses Not on filedocumented in this encounter Care Teams Information Technology Technician Relationship Specialty Start Date End Date Wolf Izaguirre DO PCP - General 06/22/[address] [place] [address] documented as of this encounter
--- OUTSIDE RECORDS SUMMARY | 2022-04-22 01:45 | XMS_ITS | Encounter Summary ---
:1945 Author Organization [facility] [place] [address] Care Team Providers Name Role Phone Dmitriy, Javi BURKS Primary Care Provider Encounter Details Date Type Department Care Team Description 09/26/2012 Orders Only Orthopaedics at [facility] Rae Garrison, Pain in limb (Primary Dx); [facility] Ramirez briseno [place] [address] [address] [phone] [place] [address] Social History Tobacco Use Types Packs/Day Years Used Date Never Smoker Smokeless Tobacco: Never Used Alcohol Use Standard Drinks/Week Comments Yes 21 (1 standard drink = 0.6 oz pure alcoh ol) Sex Assigned at Date Recorded Female 03/31/2021 3:33 PM EDT documented as of this encounter Plan of Treatment Scheduled Orders Name Type Priority Associated Diagnoses Order S chedule TOTAL KNEE REVISION Procedures Routine Pain in limb One Time for 1 ARTHROPLASTY, Occurrences st arting COMPLETE 09/26/2012 unti l 09/26/2012 documented as of this encounter Results XR TKA FIRST PO VISIT ALIGNMENT AP [...] arthroplasty withou t radiolucencies or hardware complications. Authorizing Provider Result Christy Garrison MD IMG DX ORDERABLES XR chest routine PA & lateral (12/10/2012 1:49 PM EDT) Anatomical Region Laterality Modality Chest N/A Radiographic Imaging Specimen (Source) Anatomical Collection Method Collection Time Re ceived Time Location / / Volume Laterality 12/10/2012 1:49 PM EDT Narrative 12/12/2012 2:39 PM EDT Examination CHEST ROUTINE 2 VIEWS Clinical History Preoperative right knee surgery Comparison None Technique Frontal and lateral standing views of th e chest. Findings The lungs are clear. ??The cardiomediast inal silhouette, shannan and pulmonary vasculature are normal. Minimal multi-le florida disc degenerative change and exaggeration of the normal thoracic kyph osis. Impression No acute cardiopulmonary pathology. Film and interpretation reviewed by the attending Procedure Note Kim Flores MD - 12/12/2012Formatt ing of this note might be different from the original. Examination CHEST ROUTINE 2 VIEWS Clinical History Preoperative right knee surgery Comparison None Technique Frontal and lateral standing views of th e chest. Findings The lungs are clear. The cardiomediastin al silhouette, shannan and pulmonary vasculature are normal. Minimal multi-le florida disc degenerative change and exaggeration of the normal thoracic kyph osis. Impression No acute cardiopulmonary pathology. Film and interpretation reviewed by the attending Authorizing Provider Result Christy Garrison MD IMG DX ORDERABLES Sedimentation rate (12/10/2012 12:14 PM EDT) P athologist Signature Sed Rate 15 0 - 20 CERNER mm/hr MILLENNIUM Specimen Anatomical Collection Method Collection Time Receive d Time (Source) Location / / Volume Laterality Blood specimen 12/10/2012 12:14 3 (specimen) PM EDT 12:58 PM EDT Resulting Agency Comment Spec In Lab Authorizing Provider Result Christy Garrison MD HEMATOLOGY ORDERABLES Performing Organization Address City/State/[place] [address] [facility] HandUp PBC High Sensitivity CRP (12/10/2012 12:14 PM EDT) P athologist Signature CRP High Sens 8.4 mg/L CERNER HandUp PBC Comment: Interpretations: 1) For cardiac risk assessment, [...] n treated with carboxypenicillins. References: 1. Neena VICLHIS et. al. ??AHA/CDC Scientif ic Statement: Markers [...] Organization Address City/State/[place] [address] CERNER MILLENNIUM Albumin Level (12/10/2012 12:14 PM EDT) athologist Signature Albumin 4.3 3.2 - 5.2 CERNER gm/dL MILLENNIUM Specimen Anatomical Collection Method Collection Time Receive d Time (Source) Location / / Volume Laterality Blood specimen 12/10/2012 12:14 3 (specimen) PM EDT 12:50 PM EDT Resulting Agency Comment Spec In Lab Authorizing Provider Result Christy Garrison MD CHEMISTRY ORDERABLES Performing Organization Address City/[facility]/ZIP [facility] [place] [address] CERNER MILLENNIUM Protein, total (12/10/2012 12:14 PM EDT) P athologist Signature Total Protein 7.9 6.4 - 8.3 CERNER gm/dL MILLENNIUM Specimen Anatomical Collection Method Collection Time Receive d Time (Source) Location / / Volume Laterality Blood specimen 12/10/2012 12:14 3 (specimen) PM EDT 12:50 PM EDT Resulting Agency Comment Spec In Lab Authorizing Provider Result Christy Garrison MD CHEMISTRY ORDERABLES Performing Organization Address [facility] [place] [address] CERNER MILLENNIUM Prothrombin Time (12/10/2012 12:14 PM EDT) P athologist Signature PT 12.8 12.0 - 15.0 CERNER sec MILLENNIUM Comment: [facility] Transfusion Committee Guidelines: I NR [...] Garrison MD HEMATOLOGY ORDERABLES Performing Organization Address City/[facility]/ZIP [facility] [place] [address] CERNER MILLENNIUM (ABNORMAL) Basic Metabolic Panel (non-fasting) (12/10/2012 12:14 PM EDT) P athologist Signature Glucose Lvl 92 60 - 199 CERNER mg/dL MILLENNIUM Comment: Diabetes: >=200 mg/dL plus symp toms BUN 19 (H) 8 - 18 mg/dL CERNER MILLENNIUM Creatinine 0.67 (L) 0.70 - 1.20 mg/dL CERNER MILL ENNIUM Comment: Please note that the pediatric reference intervals supplied above were not validated at [facility]. Results from pediatri c patients should [...] Organization Address City/State/[place] [address] CERNER MILLENNIUM (ABNORMAL) CBC [...] Organization Address City/State/[place] [address] CERNER MILLENNIUM Urine culture Clean Catch Urine (12/10/2012 12:08 PM EDT) Patholo gist Method Time Signature Urine Culture CERNER ? Patient Name: SOFÍA LUX ? Ordered By : RAE GARRISON ? MR#: [id number] ?LOC: ??3D ? /Sex: ??1945 (67 years), [...] Organization Address City/State/[place] [address] GERARDO QuickBloxIUM EKG 12 Lead (12/10/2012 11:52 AM EDT) Component Value Ref Range Test Analysis Performed Pathologis t Method Time At Signature Ventricular rate 59 BPM MUSE SYSTEM Atrial Rate 59 BPM MUSE SYSTEM P-R Interval 164 ms MUSE SYSTEM QRS Duration 84 ms MUSE SYSTEM Q-T Interval 444 ms MUSE SYSTEM QTC Calculated 439 ms MUSE SYSTEM (Bezet) Calculated P Novelty 57 degrees MUSE SYSTEM Calculated R Novelty -18 degrees MUSE SYSTEM Calculated T Novelty 49 degrees MUSE SYSTEM INTERPRETATION Sinus bradycardia MUSE SY STEM Minimal voltage criteria for LVH, may be normal variant Anteroseptal infarct (cited on or before 08-DEC-2005) When compared with ECG of 08-DEC-2005 12:25, Questionable change in initial forces of Anterior leads Confirmed by MD Tang Timothy ([id number]) on 12/10/2012 1:36:12 P M Specimen Anatomical Collection Method Collection Time Receive d Time (Source) Location / / Volume Laterality 12/10/2012 11:52 12/10/2012 1:36 AM EDT PM EDT Rae Garrison MD ECG ORDERABLES Performing Organization Address City/State/ZIP Code Phon e Number MUSE SYSTEM documented in this encounter Visit Diagnoses Diagnosis Pain in limb - Primary Debility, unspecified Pain in limb Pain in limb documented in this encounter Care Teams Decorative Cutting Machine Tender Relationship Specialty Start Date End Date Javi Izaguirre DO PCP - General 06/22/[address] [place] [address] documented as of this encounter
--- OUTSIDE RECORDS SUMMARY | 2022-04-22 01:45 | XMS_ITS | Encounter Summary ---
:1945 Author Organization [place] [address] Care Team Providers Name Role Phone Dmitriy Javi BURKS Primary Care Provider Reason for Visit Reason Comments Breast Cancer Encounter Details Date Type Department Care Team Description 04/14/2011 Follow-Up Hematology Oncology at Antony Cuevas MD Breast cancer (Primary [address] DR Dx) [address] [place] [place] [id number] [phone] Social History Tobacco Use Types Packs/Day Years Used Date Never Smoker Sex Assigned at Date Recorded Female 03/31/2021 3:33 PM EDT documented as of this encounter Last Filed Vital Signs Vital Sign Reading Time Taken Comments Blood Pressure 133/70 04/14/2011 11:04 AM EDT Pulse 62 04/14/2011 11:04 AM EDT Temperature 36.7 ??C (98.1 ??F) 04/14/2011 11:04 AM EDT Respiratory Rate 18 04/14/2011 11:04 AM EDT Oxygen Saturation 97% 04/14/2011 11:04 AM EDT Inhaled Oxygen Concentration - - Weight 72.1 kg (159 lb) 04/14/2011 11:04 AM EDT Height 160.5 cm (5' 3.19) 04/14/2011 11:04 AM EDT Body Mass Index 28 04/14/2011 11:04 AM EDT documented in this encounter Progress Notes Familia Powell RN - 04/18/2011 11:25 AM EDT Addended by: FAMLIIA POWELL on: 04/18/2011 Modules accepted: Orders Steve Cuevas MD - 04/14/2011 11:52 AM EDT DIAGNOSIS: Stage IIA (pT1c pN1 MX), IDC, low-grade, ER/IA positive, 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 Subjective: Sofía comes in today for followup. She is one week short of Finishing her radiation therapy and has done well throughout at all. She is continuing to slowly get her energy back. She's not having any particular problems. She is giving over a urinary tract infection. Past medical history and social history are reviewed and unchanged Review of Systems Constitutional: Negative for fever, chills, activity change, fatigue and unexpected weight change. HENT: Negative for sore throat, mouth sores and trouble swallowing. Eyes: Negative. Respiratory: Negative for cough, shortness of breath and wheezing. Cardiovascular: Negative for chest pain, palpitations and leg swelling. Gastrointestinal: Negative for nausea, vomiting, abdominal pain, diarrhea, constipation and abdominal distention. Genitourinary: Negative for dysuria and difficulty urinating. Musculoskeletal: Negative. Skin: Clear. 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 Hematological: Negative for adenopathy. Head: Normocephalic, without obvious abnormality, atraumatic Eyes: PERRL, conjunctiva/corneas clearboth eyes Ears: not examined Nose: Clear Throat: Jyothi Neck: Supple, Back: Symmetric, Lungs: Clear to auscultation bilaterally, respirations unlabored Chest Wall: No tenderness or deformity Heart: Regular rate and rhythm, S1, S2 normal, no murmur, rub or gallop Abdomen: Soft, non-tender, bowel sounds active all four quadrants, y Extremities: Extremities normal, atraumatic, no cyanosis or edema Skin: Skin color, texture, turgor normal, no rashes or lesions Lymph nodes: Cervical, supraclavicular, and axillary nodes normal Neurologic: Normal Assessment/Plan: Sofía is doing well and near the end of her radiation therapy. We will go ahead and give her a prescription today for Femara 2.5 mg daily. We went over the side effects of treatment. She'll start that at the completion of radiation therapy and then see us back with some laboratory for a recheck when she returns from her vacation in May. She'll call if problems develop in the interim. documented in this encounter Plan of Treatment Not on filedocumented as of this encounter Visit Diagnoses Diagnosis Breast cancer - Primary Malignant neoplasm of breast (female), u nspecified site documented in this encounter Care Teams Fisheries Manager Relationship Specialty Start Date End Date Javi Izaguirre DO PCP - General 06/22/[address] [place] [address] documented as of this encounter
--- OUTSIDE RECORDS SUMMARY | 2022-04-22 01:45 | XMS_ITS | Encounter Summary ---
:1945 Author Organization [facility] [place] [address] Care Team Providers Name Role Phone Dmitriy, Javi BURKS Primary Care Provider Reason for Visit Reason Comments Radiation Follow-up left breast cancer Encounter Details Date Type Department Care Team Description 06/06/2011 Follow-Up Radiation Oncology at Lucie Lord MD Breast ca (Primary Dx) [address] [place], [place] RADIATION ONCOL OGY [address] [place] [address] [phone] (Wo rk) Social History Tobacco Use Types Packs/Day Years Used Date Never Smoker Sex Assigned at Date Recorded Female 03/31/2021 3:33 PM EDT documented as of this encounter Last Filed Vital Signs Vital Sign Reading Time Taken Comments Blood Pressure 170/93 06/06/2011 1:00 PM EST Pulse 72 06/06/2011 1:00 PM EST Temperature - - Respiratory Rate 16 06/06/2011 1:00 PM EST Oxygen Saturation 97% 06/06/2011 1:00 PM EST Inhaled Oxygen Concentration - - Weight 75.1 kg (165 lb 8 oz) 06/06/2011 1:00 PM EST Height - - Body Mass Index 29.14 04/14/2011 11:04 AM EDT documented in this encounter Progress Notes Jeanine Lord MD - 06/06/2011 2:04 PM EST Subjective: Patient ID: Sofía Mcdonald is a 65 y.o. female s/p xrt completed 6 wks ago. HPI Xrt to L breast & L axilla for stage IIA, pT1c pN1mi, IDC, low gr, ERPR+, [id number]-, s/p partial mastectomy & SNB followed by reexcision & then adjuvant chemo, followed by xrt. Continuesfemara, which was started after xrt. Review of Systems Joint arthritic pain, which she has in the fall; improved since returned to area from cruise to [facility] & then to [place] & [place]; level 4; relieved adequately by ibuprofen &/or movement. Now has a cold w/scratchy throat, lot of congestion & cough; seeing Dr. Cardoso (ENT) tomorrow. Skin tx'd area fine. Energy level much better since completion of xrt. Objective: Physical Exam Constitutional: She is oriented [...] and thought content normal. Assessment and Plan: DARSHANA. R screening mmg due 07/09/11; ordered. FU 6 mos, @ which time will order post xrt baseline FU L mmg. No problem-specific visit notes found for this encounter. documented in this encounter Plan of Treatment Not on filedocumented as of this encounter Visit Diagnoses Diagnosis Breast CA - Primary Malignant neoplasm of breast (female), u nspecified site documented in this encounter Care Teams Dermatopathologist Relationship Specialty Start Date End Date Javi Izaguirre DO PCP - General 06/22/[address] [place] [address] [address] [place] [address] documented as of this encounter
--- OUTSIDE RECORDS SUMMARY | 2022-04-22 01:45 | XMS_ITS | Encounter Summary ---
:1945 Author Organization [facility] [place] [address] Care Team Providers Name Role Phone Javi Izaguirre DO Primary Care Provider Encounter Details Date Type Department Care Team Description 12/10/2012 Clinical Support Same Day at [facility] [place] [address] Social History Tobacco Use Types Packs/Day Years Used Date Former Smoker Smokeless Tobacco: Never Used Alcohol Use Standard Drinks/Week Comments Yes 21 (1 standard drink = 0.6 oz pure alcoh ol) Sex Assigned at Date Recorded Female 03/31/2021 3:33 PM EDT documented as of this encounter Last Filed Vital Signs Vital Sign Reading Time Taken Comments Blood Pressure - - Pulse 69 12/10/2012 10:58 AM EDT Temperature - - Respiratory Rate - - Oxygen Saturation 99% 12/10/2012 10:58 AM EDT Inhaled Oxygen Concentration - - Weight 69.9 kg (154 lb) 12/10/2012 10:58 AM EDT Height 165.1 cm (5' 5) 12/10/2012 10:58 AM EDT Body Mass Index 25.63 12/10/2012 10:58 AM EDT documented in this encounter Progress Notes Rima Howell RN - 12/10/2012 12:13 PM EDT PAT Questionnaire reviewed with patient while in PAT. Patient states that she has a good understanding of her pre-operative information that was given to her today while in PAT. Patient is scheduled for surgery with Dr. Lau on 12/21/12. Patient was givenHibiclens wash with instructions. She does have Advance Directives. She is here in PAT today for lab-work, EKG and sent for a CXR as ordered by Dr. Lau. documented in this encounter Plan of Treatment Not on filedocumented as of this encounter Procedures Procedure Name Priority Date/Time Associated Diagnosis Comme nts XR CHEST PA AND Routine 12/10/2012 1:49 PM Pain in limb Result s for this LATERAL EDT procedure are i n the results section. EKG 12-LEAD Routine 12/10/2012 11:52 AM Pain in limb Results for this EDT procedure are i n the results section. documented in this encounter Results XR chest routine PA & lateral (12/10/2012 [...] Film and interpretation reviewed by the attending Ellis Lau MD IMG DX ORDERABLES EKG 12 Lead (12/10/2012 11:52 AM EDT) Component Value Ref Range Test Analysis Performed Pathologis t Method Time At Signature Ventricular rate 59 BPM MUSE SYSTEM Atrial Rate 59 BPM MUSE SYSTEM P-R Interval 164 ms MUSE SYSTEM QRS Duration 84 ms MUSE SYSTEM Q-T Interval 444 ms MUSE SYSTEM QTC Calculated 439 ms MUSE SYSTEM (Bezet) Calculated P Enterprise 57 degrees MUSE SYSTEM Calculated R Enterprise -18 degrees MUSE SYSTEM Calculated T Enterprise 49 degrees MUSE SYSTEM INTERPRETATION Sinus bradycardia [...] 11:52 12/10/2012 1:36 AM EDT PM EDT Ellis Lau MD ECG ORDERABLES Performing Organization Address City/State/ZIP Code Phon e Number MUSE SYSTEM documented in this encounter Visit Diagnoses Diagnosis Pain in limb documented in this encounter Care Teams Arson Investigator Relationship Specialty Start Date End Date Javi Izaguirre DO PCP - General 06/22/[address] [place] [address] documented as of this encounter
--- OUTSIDE RECORDS SUMMARY | 2022-04-22 01:45 | XMS_ITS | Encounter Summary ---
:1945 Author Organization [facility] [place] [address] Care Team Providers Name Role Phone Dmitriy Javi BURKS Primary Care Provider Reason for Visit Reason Comments Radiation Treatment Encounter Details Date Type Department Care Team Description 03/29/2011 Follow-Up Radiation Oncology at Lucie Lord MD Breast ca (Primary Dx) [place] [address] [place], [place] RADIATION ONCOL OGY [address] [place] [address] [phone] (Wo rk) Social History Tobacco Use Types Packs/Day Years Used Date Never Smoker Sex Assigned at Date Recorded Female 03/31/2021 3:33 PM EDT documented as of this encounter Last Filed Vital Signs Vital Sign Reading Time Taken Comments Blood Pressure 138/81 03/29/2011 3:00 PM EDT Pulse 72 03/29/2011 3:00 PM EDT Temperature - - Respiratory Rate - - Oxygen Saturation 97% 03/29/2011 3:00 PM EDT Inhaled Oxygen Concentration - - Weight 72.6 kg (160 lb) 03/29/2011 3:00 PM EDT Height - - Body Mass Index 28.17 02/24/2011 12:50 PM EDT documented in this encounter Progress Notes Jeanine Lord MD - 03/29/2011 3:45 PM EDT DIAGNOSIS: Breast, L, IDC, low gr, ERPR+, Abt2ehe-, stage IIA, pT1c pN1mi, s/p partial mastectomy & SNB followed by reexcision & then chemo. CURRENT TREATMENT DOSE: 28.8 Gy ANTICIPATED TOTAL DOSE: 61 Gy Current # of xrt received: 16 Anticipated total # of xrt txs: 33 Evaluation of port verification films: ok Changes in Medical Condition: Havind more osteoarthritic pain, particularly in back; seeing Dr. Izaguirre tomorrow; took some hydrocodone for it. Skin in tx'd area ok. A little pain last night in upperlateral chest on L, which has since cleared. Energy level fluctuates; had 2 almost normal days &then knocked back down, & now starting to get better. Physical Exam: A&Ox3, in NAD. Minimal erythema L breast. Response to xrt: As expected. Radiation Related Symptoms: Skin rxn. Treatment for Symptom Control: Brent's. Recommendation on Continuing Course of Tx: Cont. documented in this encounter Plan of Treatment Not on filedocumented as of this encounter Visit Diagnoses Diagnosis Breast CA - Primary Malignant neoplasm of breast (female), u nspecified site documented in this encounter Care Teams Cutter Operator Brick Relationship Specialty Start Date End Date Javi Izaguirre DO PCP - General 06/22/[address] [place] [address] [address] [place] [address] documented as of this encounter
--- OUTSIDE RECORDS SUMMARY | 2022-04-22 01:45 | XMS_ITS | Encounter Summary ---
:1945 Author Organization [facility] Address [address] [place] [address] Care Team Providers Name Role Phone Javi Izaguirre DO Primary Care Provider Encounter Details Date Type Department Care Team Description 07/20/2011 Orders Only Orthopaedics at [facility] Ellis Lau MD [facility] [address] [place] [address] [address] [phone] [place], [place] [address] (Wo rk) Social History Tobacco Use Types Packs/Day Years Used Date Never Smoker Sex Assigned at Date Recorded Female 03/31/2021 3:33 PM EDT documented as of this encounter Plan of Treatment Not on filedocumented as of this encounter Procedures Procedure Name Priority Date/Time Associated Diagnosis Comme nts FILM LIBRARY Routine 07/20/2011 1:05 PM Results f or this STORAGE ONLY CT EST procedure ar e in SPINE the results section. documented in this encounter Results FILM LIBRARY- STORAGE ONLY CT [facility] (07/20/2011 1:05 PM EST) Specimen (Source) Anatomical Collection Method Collection Time Re ceived Time Location / / Volume Laterality 07/20/2011 1:05 PM EST Narrative [facility] - 12/04/2013 7:03 PM EDT This is a non-reportable exam. Procedure Note Mor Johns - 12/04/2013Formatting of t his note might be different from the original. This is a non-reportable exam. Ellis Lau MD IM FILM LIBRARY ORDERABLES Performing Organization Address City/State/ZIP Code Phon e Number DH RAD DH RAD [address] [facility] [place] [address] documented in this encounter Visit Diagnoses Not on filedocumented in this encounter Care Teams General Handling Supervisor Relationship Specialty Start Date End Date Javi Izaguirre DO PCP - General 06/22/[address] [place] [address] documented as of this encounter
--- OUTSIDE RECORDS SUMMARY | 2022-04-22 01:45 | XMS_ITS | Encounter Summary ---
:1945 Author Organization [facility] [place] [address] Care Team Providers Name Role Phone Dmitriy Javi BURKS Primary Care Provider Reason for Visit Reason Onset Date Comments Other 09/28/2011 patient had question of when mammo due Encounter Details Date Type Department Care Team Description 09/28/2011 Telephone Radiation Oncology at [facility] (patient had Chiquita Block RN question of when mammo [address] due) [place] [id number] Social History Tobacco Use Types Packs/Day Years Used Date Never Smoker Sex Assigned at Date Recorded Female 03/31/2021 3:33 PM EDT documented as of this encounter Miscellaneous Notes Telephone Encounter - Nicci Garcia RN - 09/28/2011 9:08 AM EST Radiation Oncology Nurse Phone Note Patient called recently inquiring when her next mammo should be of her treated breast ( left). She had right side done 06/2012. It was her impression that she should have the left breast done 6 months after completing radiotherapy. Dr Lord stated that when she sees her in November 2011, she will discuss this with patient and come up with a plan . The recomendation is to do mammo on treated side 6-12 months after having treatment. I called pt and told her this. She agreed w/ plan documented in this encounter Plan of Treatment Not on filedocumented as of this encounter Visit Diagnoses Not on filedocumented in this encounter Care Teams Crystal Calibrator Relationship Specialty Start Date End Date Javi Izaguirre DO PCP - General 06/22/[address] [facility] [address] [place] [address] documented as of this encounter
--- OUTSIDE RECORDS SUMMARY | 2022-04-22 01:45 | XMS_ITS | Encounter Summary ---
:1945 Author Organization [facility] [place] [address] Care Team Providers Name Role Phone Javi Izaguirre DO Primary Care Provider Encounter Details Date Type Department Care Team Description 07/01/2011 Orders Only Orthopaedics at [facility] Charley-Marker, Knee joint [facility] Shilpi Menendez APRN replacement by other [facility] means (Primary Dx) [place] [address] ORTHOPAEDIC SURGERY [place], [place] [address] Social History Tobacco Use Types Packs/Day Years Used Date Never Smoker Sex Assigned at Date Recorded Female 03/31/2021 3:33 PM EDT documented as of this encounter Plan of Treatment Not on filedocumented as of this encounter Visit Diagnoses Diagnosis Knee joint replacement by other means - Primary documented in this encounter Care Teams Manager Of Procurement Relationship Specialty Start Date End Date Javi Izaguirre DO PCP - General 06/22/[address] [place] [address] documented as of this encounter
--- OUTSIDE RECORDS SUMMARY | 2022-04-22 01:45 | XMS_ITS | Encounter Summary ---
:1945 Author Organization [facility] [place] [address] Care Team Providers Name Role Phone Dmitriy, Javi BURKS Primary Care Provider Encounter Details Date Type Department Care Team Description 10/11/2011 Orders Only Orthopaedics at [facility] Ellis Lau, S/P TKR (total knee replacem ent); [facility] Ramirez briseno MD [place] [address] [address] [phone] [place] [address] Social History Tobacco Use Types Packs/Day Years Used Date Never Smoker Sex Assigned at Date Recorded Female 03/31/2021 3:33 PM EDT documented as of this encounter Plan of Treatment Not on filedocumented as of this encounter Results XR knee bilateral1 or 2 view (12/09/2011 1:54 PM EDT) Anatomical Region Laterality Modality Knee Bilateral Radiographic Imaging Specimen (Source) Anatomical Collection Method Collection Time Re ceived Time Location / / Volume Laterality 12/09/2011 1:54 PM EDT Narrative 12/09/2011 4:09 PM EDT Examination KNEE BILATERAL 1 OR 2 VIEWS/BILAT Clinical History Reason for exam and clinical history: BI LAT TKA ; Comparison 2005 to 2008. Findings Bilateral total knee arthroplasties with out change in appearance and alignment. ?? A screw traversing the right fibula head is surrounded by a well circumscribed radiolucency that has been present since 2005. The importance of this finding is uncertain. ??There are bilateral smal l knee effusions. Impression ? 1. No change in appearance and al ignment of bilateral total knee arthroplasties. ? 2. Unchanged radiolucency surroun ding the right fibular screw. Procedure Note Breanne Chavez MD - 12/09/2011Formatt ing of this note might be different from the original. Examination KNEE BILATERAL 1 OR 2 VIEWS/BILAT Clinical History Reason for exam and clinical history: BI LAT TKA ; Comparison 2005 to 2008. Findings Bilateral total knee arthroplasties with out change in appearance and alignment. A screw traversing the right fibula head is surrounded by a well circumscribed radiolucency that has been present since 2005. The importance of this finding is uncertain. There are bilateral small knee effusions. Impression 1. No change in appearance and alignmen t of bilateral total knee arthroplasties. 2. Unchanged radiolucency surrounding t he right fibular screw. Ellis Lau MD IMG DX ORDERABLES documented in this encounter Visit Diagnoses Diagnosis S/P TKR (total knee replacement) Knee joint replacement by other means Right hip pain Pain in joint, pelvic region and thigh S/P TKR (total knee replacement) Knee joint replacement by other means documented in this encounter Care Teams Post Adoption Coordinator Relationship Specialty Start Date End Date Javi Izaguirre DO PCP - General 06/22/[address] [place] [address] documented as of this encounter
--- OUTSIDE RECORDS SUMMARY | 2022-04-22 01:45 | XMS_ITS | Encounter Summary ---
:1945 Author Organization [facility] [place] [address] Care Team Providers Name Role Phone Jaiv Izaguirre DO Primary Care Provider Encounter Details Date Type Department Care Team Description 09/26/2012 External [place] [address] Social History Tobacco Use Types Packs/Day [...] Name Priority Date/Time Associated Diagnosis Comme nts IMPLANTABLE DEVICES SCAN Routine 04/16/1997 documented in this encounter Results Scan Doc: Implantable Devices (04/16/1997) Narrative This result has an attachment that is no t available. Historical Provider MD GARCIA MGR SCAN EXT ORDR/RSLT documented in this encounter Visit Diagnoses Not on filedocumented in this encounter Care Teams Communication And Outreach Manager Relationship Specialty Start Date End Date Javi Izaguirre DO PCP - General 06/22/[address] [place] [address] documented as of this encounter
--- OUTSIDE RECORDS SUMMARY | 2022-04-22 01:45 | XMS_ITS | Encounter Summary ---
:1945 Author Organization [facility] [place] [address] Care Team Providers Name Role Phone Javi Izaguirre DO Primary Care Provider Encounter Details Date Type Department Care Team Description 02/15/2011 Hospital [place] [address] Social History Tobacco Use Types Packs/Day [...] mg Take 1-2 tablets 30 tablet 0 0402/201112/09/2011 tabletIndications: Breast by mouth every 6 CA [...] 03/15/2011 ORAL) documented as of this encounter Plan of Treatment Not on filedocumented as of this encounter Visit Diagnoses Not on filedocumented in this encounter Care Teams Nurse Practitioner Hospitalist Relationship Specialty Start Date End Date Javi Izaguirre DO PCP - General 06/22/[address] [place] [address] documented as of this encounter
--- OUTSIDE RECORDS SUMMARY | 2022-04-22 01:45 | XMS_ITS | Encounter Summary ---
:1945 Author Organization [facility] Address [facility] [address] [place] [address] Care Team Providers Name Role Phone Javi Izaguirre DO Primary Care Provider Encounter Details Date Type Department Care Team Description 07/20/2011 Orders Only Orthopaedics at [facility] Ellis Lau MD [facility] [address] [place] [address] [address] [phone] [place], [place] [address] (Wo rk) Social History Tobacco Use Types Packs/Day Years Used Date Never Smoker Sex Assigned at Date Recorded Female 03/31/2021 3:33 PM EDT documented as of this encounter Plan of Treatment Not on filedocumented as of this encounter Procedures Procedure Name Priority Date/Time Associated Diagnosis Comme nts FILM LIBRARY Routine 07/20/2011 1:15 PM Results f or this STORAGE ONLY CT EST procedure ar e in ABDOMEN AND PELVIS the resul ts section. documented in this encounter Results FILM LIBRARY- STORAGE ONLY CT ABDOMEN & PELVIS (07/20/2011 1:15 PM EST) Specimen (Source) Anatomical Collection Method Collection Time Re ceived Time Location / / Volume Laterality 07/20/2011 1:15 PM EST Narrative RAD - 12/04/2013 7:03 PM EDT This is a non-reportable exam. Procedure Note NatMor - 12/04/2013Formatting of t his note might be different from the original. This is a non-reportable exam. Ellis Lau MD IM FILM LIBRARY ORDERABLES Performing Organization Address City/State/ZIP Code Phon e Number [facility] [address] [place] [address] documented in this encounter Visit Diagnoses Not on filedocumented in this encounter Care Teams Group Managing Director Relationship Specialty Start Date End Date Javi Izaguirre DO PCP - General 06/22/[address] [place] [address] documented as of this encounter
--- OUTSIDE RECORDS SUMMARY | 2022-04-22 01:45 | XMS_ITS | Encounter Summary ---
:1945 Author Organization [facility] [place] [address] Care Team Providers Name Role Phone DmitriyJavi agrawal Primary Care Provider Reason for Visit Reason Comments Follow-up Encounter Details Date Type Department Care Team Description 12/15/2011 Follow-Up Hematology Oncology at Antony Cuevas MD Cancer of female [address] breast (Primary Dx) [address] [place] [phone] Social History Tobacco Use Types Packs/Day Years Used Date Never Smoker Smokeless Tobacco: Never Used Alcohol Use Standard Drinks/Week Comments Yes 21 (1 standard drink = 0.6 oz pure alcoh ol) Sex Assigned at Date Recorded Female 03/31/2021 3:33 PM EDT documented as of this encounter Last Filed Vital Signs Vital Sign Reading Time Taken Comments Blood Pressure 125/80 12/15/2011 1:18 PM EDT Pulse 63 12/15/2011 1:18 PM EDT Temperature 36.3 ??C (97.3 ??F) 12/15/2011 1:18 PM EDT Respiratory Rate 18 12/15/2011 1:18 PM EDT Oxygen Saturation 97% 12/15/2011 1:18 PM EDT Inhaled Oxygen Concentration - - Weight 74.3 kg (163 lb 12.8 oz) 12/15/2011 1:18 PM EDT Height - - Body Mass Index 26.84 12/09/2011 2:47 PM EDT documented in this encounter Progress Notes Steve Cuevas MD - 12/15/2011 2:02 PM EDT DIAGNOSIS: Stage IIA (pT1c pN1 MX), IDC, low-grade, ER/NE positive, 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 S/P 4 cycles AC and 12 weeks Taxol completed 02/07 now on Femara Subjective: Sofía comes in today for followup. She is doing well overall although does have some arthritis symptoms. She did go off the Femara for a short time but it did not seem to help so she is back on the medication and believes the arthritis is just the same as it always has been. It is responding to nonsteroidal anti- inflammatories. Additionally she's had a bit of a chronic cough but she's found out that by keeping her ears very clear with the ENT doctor cough has resolved. Her energy levels finally havecome up to normal. He still has a little bit of mild neuropathy but is going on walks and she simplyuses a walking stick so she is a bit more solid that way. Review systems is otherwise negative Past medical history and social history are [...] supraclavicular, and axillary nodes normal Neurologic: Normal laboratory is reviewed and her CBC and CMP are completely normal Assessment/Plan: Sofía is tolerating the Femara well. There is no evidence of recurrent breast cancer. She'll continue on the Femara 2.5 mg a day and give a call if she has any problems arise in the interim. She has mammogram scheduled and followup is arranged for 6 months from now with a CBC and CMP prior to the appointment. documented in this encounter Procedure Notes Provider, Scanning - 12/15/2011 1:10 PM EDTAssociated Order(s): SCAN DOC: LAB documented in this encounter Plan of Treatment Scheduled Orders Name Type Priority Associated Diagnoses Order S chedule CBC (with Diff) Lab Routine Cancer of female breast E xpected: 06/16/2012 (Approximate), Expires: 2012 Comprehensive metabolic Lab Routine Cancer of female breast Expected: 06/16/2012 panel (non-fasting) (Approxi mate), Expires: 2012 documented as of this encounter Procedures Procedure Name Priority Date/Time Associated Diagnosis Comme nts LAB SCAN 12/15/2011 1:10 PM Results f or this EDT procedure are i n the results section . documented in this encounter Results SCAN DOC: LAB (12/15/2011 1:10 PM EDT) Narrative 12/15/2011 1:10 PM EDT Procedure Note Provider, Scanning - 12/15/2011 1:10 PM EDT Scanning Provider MEDIA MGR SCAN EXT ORDR/RSLT documented in this encounter Visit Diagnoses Diagnosis Cancer of female breast - Primary Malignant neoplasm of breast (female), u nspecified site documented in this encounter Care Teams Plastics Patternmaker Relationship Specialty Start Date End Date Javi Izaguirre DO PCP - General 06/22/10 [address] [place] [address] documented as of this encounter
--- OUTSIDE RECORDS SUMMARY | 2022-04-22 01:45 | XMS_ITS | Encounter Summary ---
:1945 Author Organization [facility] [place] [address] Care Team Providers Name Role Phone Javi Izaguirre Primary Care Provider Encounter Details Date Type Department Care Team Description 12/19/2011 Hospital Encounter Mammography at [facility], CONV Breast CA [facility] Jeanine Coreas MD [facility] [place] [address] [place] [address] Social History Tobacco Use Types Packs/Day Years Used Date Never Smoker Smokeless Tobacco: Never Used Alcohol Use Standard Drinks/Week Comments Yes 21 (1 standard drink = 0.6 oz pure alcoh ol) Sex Assigned at Date Recorded Female 03/31/2021 3:33 PM EDT documented as of this encounter Medications at Time of Discharge Medication Sig Dispensed Refills Start Date End Date letrozole (FEMARA) 2.5 mg Take 2.5 mg by 0 05/16/2012 tablet mouth daily. omeprazole (PRILOSEC) 20 Take 20 mg by mouth 0 02/11/2013 mg capsule daily. acetaminophen (TYLENOL) Take 1,000 mg by 0 12/22/2012 500 mg tablet mouth every 6 hours as needed. LORazepam (ATIVAN) 1 mg Take 1 mg by mouth 0 12/11/2014 tablet every 6 hours as needed. letrozole (FEMARA) 2.5 mg Take 1 tablet by 90 tablet 3 03/3106/05/2012 tabletIndications: Breast mouth daily for 90 cancer days. ibuprofen (ADVIL;MOTRIN) Take 600 mg by 0 12/10/2012 600 mg tablet mouth every 6 hours as needed. Meclizine 25 mg Cap Take 1 tablet by 0 12/19/2012 mouth as needed. documented as of this encounter Plan of Treatment Not on filedocumented as of this encounter Procedures Procedure Name Priority Date/Time Associated Diagnosis Comme nts MAMMO UNILATERAL Routine 12/19/2011 2:15 PM Malignant neoplasm Results for this DIGITAL SCREENING EDT of breast (female), pro cedure are in unspecified site the results section. documented in this encounter Results MAMMO UNILATERAL DIGITAL SCREENING (12/19/2011 2:15 PM EDT) Anatomical Region Laterality Modality Breast N/A Mammography Specimen (Source) Anatomical Collection Method Collection Time Re ceived Time Location / / Volume Laterality 12/19/2011 2:15 PM EDT Narrative 12/19/2011 4:54 PM EDT DIAGNOSTIC LEFT MAMMOGRAPHY ON 12/19/11: ?? CLINICAL INDICATION: History of Left etienne ast cancer with XRT to Left breast completed 04/10. Baseline post-XRT mammog lobito. ?? TECHNIQUE: Cranio-caudal (CC) and mediol ateral oblique (MLO) views of the Left breast obtained with direct digital capt ure. The exam was evaluated by CAD Version 8.3.17. ?? FINDINGS This is a benign mammogram (ACR Category 2). There are post-surgical changes in the Left breast. There has be en no change in the appearance of the breast since the previous examination, a nd there is no evidence of cancer. ? The breast is of scattered density. ? CONCLUSION ?? BENIGN mammogram (ACR Category 2). Routi ne screening mammography is recommended with the frequency dependent on the ang ent's age and breast cancer risk factors. ?? A letter has been sent to this patient [facility]. ? Film and interpretation reviewed by the attending Procedure Note Sonia Werner MD - 12/19/2011 DIAGNOSTIC LEFT MAMMOGRAPHY ON 12/19/11: CLINICAL INDICATION: History of Left etienne ast cancer with XRT to Left breast completed 04/10. Baseline post-XRT mammog lobito. TECHNIQUE: Cranio-caudal (CC) and mediol ateral oblique (MLO) views of the Left breast obtained with direct digital capt ure. The exam was evaluated by CAD Version 8.3.17. FINDINGS This is a benign mammogram (ACR Category 2). There are post-surgical changes in the Left breast. There has be en no change in the appearance of the breast since the previous examination, a nd there is no evidence of cancer. The breast is of scattered density. CONCLUSION BENIGN mammogram (ACR Category 2). Routi ne screening mammography is recommended with the frequency dependent on the ang ent's age and breast cancer risk factors. A letter has been sent to this patient b [facility]. Film and interpretation reviewed by the attending Jeanine Lord MD IMG MAMMO ORDERABLES documented in this encounter Visit Diagnoses Diagnosis Breast CA Malignant neoplasm of breast (female), u nspecified site documented in this encounter Care Teams Supervisor Statement Clerks Relationship Specialty Start Date End Date Javi Izaguirre DO PCP - General 06/22/[address] [place] [address] documented as of this encounter
--- OUTSIDE RECORDS SUMMARY | 2022-04-22 01:45 | XMS_ITS | Encounter Summary ---
:1945 Author Organization [facility] [place] [address] Care Team Providers Name Role Phone Dmitriy Javi BURKS Primary Care Provider Reason for Visit Reason Comments Breast Cancer Encounter Details Date Type Department Care Team Description 02/24/2011 Follow-Up Hematology Oncology at Antony Cuevas MD Breast cancer (Primary [address] DR Dx) [address] [place] [phone] Social History Tobacco Use Types Packs/Day Years Used Date Never Smoker Sex Assigned at Date Recorded Female 03/31/2021 3:33 PM EDT documented as of this encounter Last Filed Vital Signs Vital Sign Reading Time Taken Comments Blood Pressure 134/84 02/24/2011 12:50 PM EDT Pulse 80 02/24/2011 12:50 PM EDT Temperature 36.7 ??C (98.1 ??F) 02/24/2011 12:50 PM EDT Respiratory Rate 16 02/24/2011 12:50 PM EDT Oxygen Saturation 96% 02/24/2011 12:50 PM EDT Inhaled Oxygen Concentration - - Weight 73 kg (160 lb 15 oz) 02/24/2011 12:50 PM EDT Height 160.5 cm (5' 3.19) 02/24/2011 12:50 PM EDT Body Mass Index 28.34 02/24/2011 12:50 PM EDT documented in this encounter Progress Notes Steve Cuevas MD - 02/24/2011 1:24 PM EDT DIAGNOSIS: Stage IIA (pT1c pN1 MX), IDC, low-grade, ER/RI positive, 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 Subjective: Sofía comes in today for followup. It's been several weeks since she completed her chemotherapy. Cathyhas had her port out and is glad to have that done with. She is set up to start radiation therapy onAugust 8. She is starting get her energy back. She does have a little bit of neuropathy in her feet but otherwise is doing well. Review systems is otherwise negative. Past medical history and social history are reviewed and unchanged.Review of Systems Constitutional: Negative for fever, chills, [...] dysuria and difficulty urinating. Musculoskeletal: Negative. Skin: A small boil is resolving.. 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 Hematological: Negative for adenopathy. Head: Normocephalic, without obvious abnormality, atraumatic Eyes: PERRL, conjunctiva/corneas clear, EOM's intact, fundi benign, both eyes Ears: Normal TM's and external ear canals, both ears Nose: Nares normal, septum midline, mucosa normal, no drainage or sinus tenderness Throat: Lips, mucosa, and tongue normal; teeth and gums normal Neck: Supple, symmetrical, trachea midline, no adenopathy, thyroid: not enlarged, symmetric, no tenderness/mass/nodules, no carotid bruit or JVD Back: Symmetric, no curvature, ROM normal, no CVA tenderness Lungs: Clear to auscultation bilaterally, respirations unlabored Chest Wall: No tenderness or deformity Heart: Regular rate and rhythm, S1, S2 normal, no murmur, rub or gallop Abdomen: Soft, non-tender, bowel sounds active all four quadrants, no masses, no organomegaly Extremities: Extremities normal, atraumatic, no cyanosis or edema Pulses: 2+ and symmetric Skin: Skin color, texture, turgor normal, no rashes or lesions Lymph nodes: Cervical, supraclavicular, and axillary nodes normal Neurologic: Normal Laboratory is reviewed today. Her CBC has completely normalized with a white count of 5.2 [id number] platelet count 294. CMP is completely normal with normal liver tests and a creatinine of 0.8. Assessment/Plan: Sofía is doing well and has recovered as far as her blood counts go from her chemotherapy. Her fatigue and other symptoms should continue to improve as time goes on. We talked today about starting an aromatase inhibitor and we would begin that after the completion of her radiation therapy. We'll set her up with a followup appointment near the end of radiation therapy to discuss that. She'll let us know if any problems develop in the interim. documented in this encounter Procedure Notes Provider, Scanning - 04/01/2011 2:31 PM EDTAssociated Order(s): SCAN DOC: LAB documented in this encounter ED Notes John Ojeda - 04/13/2011 10:33 AM EDT documented in this encounter Plan of Treatment Not on filedocumented as of this encounter Procedures Procedure Name Priority Date/Time Associated Diagnosis Comme nts LAB SCAN 04/01/2011 2:31 PM Results f or this EDT procedure are i n the results section . documented in this encounter Results SCAN DOC: LAB (04/01/2011 2:31 PM EDT) Narrative 04/01/2011 2:31 PM EDT Procedure Note Provider, Scanning - 04/01/2011 2:31 PM EDT Scanning Provider MEDIA MGR SCAN EXT ORDR/RSLT documented in this encounter Visit Diagnoses Diagnosis Breast cancer - Primary Malignant neoplasm of breast (female), u nspecified site documented in this encounter Care Teams Senior Abap Developer Relationship Specialty Start Date End Date Javi Izaguirre DO PCP - General 06/22/[address] [place] [address] documented as of this encounter
--- OUTSIDE RECORDS SUMMARY | 2022-04-22 01:45 | XMS_ITS | Encounter Summary ---
:1945 Author Organization [facility] Address [address] [place] [address] Care Team Providers Name Role Phone Javi Izaguirre DO Primary Care Provider Reason for Referral Physical Therapy (Routine) - Complete - Patient Will Schedule External Appt Specialty Diagnoses / Procedures Referred By Contact Refer red To Contact Physical Therapy Diagnoses S/P knee replacement Ted Johnson, [facility] D [place] [address] Referral ID Status Reason Start Expiration Visits Visits Date Date Requested Authorized [id number] Complete - Evaluate and 12/09/2011 06/06/2012 1 1 Patient Will Treat Schedule External Appt Reason for Visit Reason Comments Right Knee Pain SP R TKA [facility] 1996 [place] Right Hip Pain Encounter Details Date Type Department Care Team Description 12/09/2011 Office Visit Orthopaedics at [facility] Ellis Lau, S/P knee replacement [facility] (Primary Dx) [address] [place] [address] [phone] [place] [address] Social History Tobacco Use Types Packs/Day Years Used Date Never Smoker Smokeless Tobacco: Never Used Alcohol Use Standard Drinks/Week Comments Yes 21 (1 standard drink = 0.6 oz pure alcoh ol) Sex Assigned at Date Recorded Female 03/31/2021 3:33 PM EDT documented as of this encounter Last Filed Vital Signs Vital Sign Reading Time Taken Comments Blood Pressure 138/82 12/09/2011 2:47 PM EDT Pulse 73 12/09/2011 2:47 PM EDT Temperature - - Respiratory Rate - - Oxygen Saturation - - Inhaled Oxygen Concentration - - Weight 74.9 kg (165 lb 1.6 oz) 12/09/2011 2:47 PM EDT Height 166.4 cm (5' 5.5) 12/09/2011 2:47 PM EDT PT [facility] [place] Body Mass Index 27.06 12/09/2011 2:47 PM EDT documented in this encounter Progress Notes Ted Johnson PA - 12/09/2011 3:25 PM EDT OFFICE NOTE DATE OF DICTATION: 12/09/2011 CHIEF COMPLAINT: Status post bilateral total knee arthroplasties, right was done in 1996, and left was done [place] [address] Lau. HISTORY OF PRESENT ILLNESS: This is a very pleasant 66-year-old here today in followup for bilateral knees. Her left knee, the side that Dr. Lau did in 2006, has done extraordinarily well. She continues to be without pain and it is not limiting her. The right knee has become somewhat more problematic since her last visit. There was some concern for lucency on x-ray at a visit about 16 months ago. Also, she underwent a CT scan in 05/2011, which did show a lucency in the medial femoral condyle without gross loosening. Unfortunately, she was undergoing treatment for breast cancer, which has been successful, but has left her fatigued. She is improving from a fatigue standpoint, but her right hip and her right knee are bothering her a bit more. She wants to make sure that there is nothing more significant happening here. The right hip, she describes lateral thigh pain worse when lying on her side and her knee pain is fairly general. PHYSICAL EXAMINATION: A well-nourished, well-developed 66-year-old, in no acute distress. A and O x3 with a pleasant affect. Able to stand with mild antalgia. Remainder of the knee exam is as seen below. Right hip exam shows large deformity. Skin warm and dry without lesions. Able to do straight leg raise without difficulty or lag. Passive flexes to 120 degrees without pain, internally rotates 35 degrees with mild concurrent discomfort, and externally rotates to 40 degrees with mild concurrent discomfort. It is quite tender over the greater trochanter and along the course of the IT band. Normal sensation and motor function distally. Dorsalis pedis 2+/4. LABORATORY DATA: X-rays were taken in the office today including AP pelvis and frog-leg lateral of the right hip as well as two views of bilateral knees demonstrating right hip osteoarthritis of mild joint space narrowing, osteophytosis, and subchondral sclerosis. Left knee is in good condition without evidence of complication. Right knee shows forward screw fixation of the tibial place with some sclerosis and lucency around the lateral screws. There is question of some lucency under the medial tibial tray, although again without gross loosening. ASSESSMENT: Status post bilateral total knee arthroplasties with some lucency without gross loosening on the right side and some arthritic changes in the right hip with an exam more consistent with greater trochanteric bursitis. PLAN: I had a lengthy conversation with the patient in the office today with Dr. Lau, reviewed her findings at length. At this point, while there are some findings on x-ray and CT scan suggestive of osteolysis. There is no gross loosening in the right knee. Certainly, an approach of continued watching and waiting would seem reasonable unless her symptoms demand, otherwise for now we would like to focus on a rehab program, focusing on strength of both supporting musculature of the knee and the hip as well as stretching and ultrasound of the greater trochanter. She feels comfortable with this approach. We will plan to see her back in approximately six months with repeat x-rays or sooner with any difficulties. I have made the following determinations: Post Op Left Knee Exam: Gait Abnormality: Normal Knee ROM: Extension:0 Flexion: 125 Alignment: 0-4 degrees Neutral Stability: A/P Translation <5mm Varus (lateral stability) <5mm Valgus (medial stability) <5mm Extension La degrees or less Patella Tracking: Normal Pulses Palpable: Left PT:Yes Left DP:Yes Motor/Sensory: Left Distal Motor: Normal Distal Sensory: Normal Quadriceps Strength:5 I have made the following determinations: Post Op Right Knee Exam: Gait Abnormality: Normal Knee ROM: Extension:0 Flexion: 125 Alignment: 0-4 degrees Neutral Stability: A/P Translation <5mm. Varus (lateral stability)<5mm Valgus (medial stability) <5mm Extension La degrees or less Patella Tracking: Normal Pulses Palpable: Right PT: Yes Right DP:Yes Motor/Sensory: Distal Motor: Normal Distal Sensory: Normal Quadriceps Strength: 4 documented in this encounter Plan of Treatment Scheduled Referrals Name Type Priority Associated Diagnoses Order S chedule REFERRAL TO Outpatient Referral Routine S/p knee replacement Ordered: PHYSICAL THERAPY 12/09/2011 documented as of this encounter Results XR knee bilateral1 or 2 view (06/04/2012 1:25 PM EST) Anatomical Region Laterality Modality Knee Bilateral Radiographic Imaging Specimen (Source) Anatomical Collection Method Collection Time Re ceived Time Location / / Volume Laterality 06/04/2012 1:25 PM EST Narrative 06/04/2012 2:48 PM EST Examination KNEE BILATERAL 1 OR 2 VIEWS Clinical History Reason for exam and clinical history: S/ P tka; Comparison 12/09/2011. Technique 2 views of the right and left knees Findings Bilateral total knee arthroplasties are unchanged in appearance and alignment. ?? Unchanged well circumscribed radiolucenc y surrounding the right fibular head screw, unchanged in 2005. No new peripro sthetic lucencies to suggest loosening or fracture. Small bilateral knee effusi ons. Impression No change in appearance or alignment of bilateral total knee arthroplasties. Film and interpretation reviewed by the attending Procedure Note Alex Dean MD - 06/04/2012Formatt ing of this note might be different from the original. Examination KNEE BILATERAL 1 OR 2 VIEWS Clinical History Reason for exam and clinical history: S/ P tka; Comparison 12/09/2011. Technique 2 views of the right and left knees Findings Bilateral total knee arthroplasties are unchanged in appearance and alignment. Unchanged well circumscribed radiolucenc y surrounding the right fibular head screw, unchanged in 2005. No new peripro sthetic lucencies to suggest loosening or fracture. Small bilateral knee effusi ons. Impression No change in appearance or alignment of bilateral total knee arthroplasties. Film and interpretation reviewed by the attending Ellis Lau MD IMG DX ORDERABLES documented in this encounter Visit Diagnoses Diagnosis S/P knee replacement - Primary Knee joint replacement by other means S/P knee replacement Knee joint replacement by other means documented in this encounter Care Teams Home Office Claims Examiner Relationship Specialty Start Date End Date Javi Izaguirre DO PCP - General 06/22/[address] [place] [address] documented as of this encounter
--- OUTSIDE RECORDS SUMMARY | 2022-04-22 01:45 | XMS_ITS | Encounter Summary ---
:1945 Author Organization [place] [address] Care Team Providers Name Role Phone Javi Izaguirre DO Primary Care Provider Reason for Visit Reason Comments Radiation Treatment Encounter Details Date Type Department Care Team Description 04/05/2011 [facility] [address] RADIATION ONCOLOGY [place], [place] [phone] [place], [place] [phone] (Wo rk) Social History Tobacco Use Types Packs/Day Years Used Date Never Smoker Sex Assigned at Date Recorded Female 03/31/2021 3:33 PM EDT documented as of this encounter Last Filed Vital Signs Vital Sign Reading Time Taken Comments Blood Pressure 144/76 04/05/2011 10:18 AM EDT Pulse 60 04/05/2011 10:18 AM EDT Temperature 36.7 ??C (98.1 ??F) 04/05/2011 10:18 AM EDT Respiratory Rate 18 04/05/2011 10:18 AM EDT Oxygen Saturation 98% 04/05/2011 10:18 AM EDT Inhaled Oxygen Concentration - - Weight 73 kg (161 lb) 04/05/2011 10:18 AM EDT Height - - Body Mass Index 28.35 02/24/2011 12:50 PM EDT documented in this encounter Progress Notes Donavan Page MD - 04/05/2011 10:50 AM EDT DIAGNOSIS: Breast, L, IDC, low gr, ERPR+, [id number]-, stage IIA, pT1c pN1mi, s/p partial mastectomy & SNB followed by reexcision & then chemo. CURRENT TREATMENT DOSE: 3780 Gy ANTICIPATED TOTAL DOSE: 61 Gy Current # of xrt received: 20 Anticipated total # of xrt txs: 33 Evaluation of port verification films: ok Changes in Medical Condition: . Skin in tx'd area ok. A little pain last night in upper lateral chest on L, which has since cleared. Energy level fluctuates; had 2 almost normal days & then knockedback down, & now starting to get better. Physical Exam: A&Ox3, in NAD. Minimal erythema L breast. Response to xrt: As expected. Radiation Related Symptoms: Skin rxn. IMAGEs: NO METS Treatment for Symptom Control: Brent's. Recommendation on Continuing Course of Tx: Cont. documented in this encounter Plan of Treatment Not on filedocumented as of this encounter Visit Diagnoses Not on filedocumented in this encounter Care Teams Development Chemist Relationship Specialty Start Date End Date Javi Izaguirre DO PCP - General 06/22/[address] [place] [address] documented as of this encounter
--- OUTSIDE RECORDS SUMMARY | 2022-04-22 01:45 | XMS_ITS | Encounter Summary ---
:1945 Author Organization [facility] [place] [address] Care Team Providers Name Role Phone Javi Izaguirre Primary Care Provider Encounter Details Date Type Department Care Team Description 06/21/[address] Scan at [facility], DR ZEPEDA S/P TKR (total knee replacem ent); [facility] Grupo Hirsch MD [facility] [place] [address] [place] [phone] Social History Tobacco Use Types Packs/Day Years Used Date Never Smoker Sex Assigned at Date Recorded Female 03/31/2021 3:33 PM EDT documented as of this encounter Medications at Time of Discharge Medication Sig Dispensed Refills Start Date End Date CA CIT/MGOX/VIT Take by mouth daily. 0 12/09/2011 D3/TRICE/MIN AA (CALCIUM-VIT [id number]) [phone] [id number] Cap letrozole (FEMARA) 2.5 mg Take 1 tablet by 90 tablet 3 03/3106/05/2012 tabletIndications: Breast mouth daily for 90 cancer days. ibuprofen (ADVIL;MOTRIN) Take 600 mg by mouth 0 12/10/2012 600 mg tablet every 6 hours as needed. Meclizine 25 mg Cap Take 1 tablet by 0 12/19/2012 mouth as needed. Lutein 6 mg Cap Take by mouth daily. 0 12/09/2011 GLUCOSAMINE SULFATE Take 500 mg by mouth 0 201012/09/2011 (GLUCOSAMINE 2 times daily. ORAL)Indications: Breast cancer LORazepam (ATIVAN) 0.5 mg Take 1-2 tablets by 30 tablet 0 0 11/05/2010 12/09/2011 tabletIndications: Breast mouth every 6 hours CA as needed for Anxiety (nausea or vomitting). OMEPRAZOLE (PRILOSEC 0 10/14/201011/28 ORAL) ERGOCALCIFEROL, VITAMIN 0 10/14/2010 0 12/09/2011 D2, (VITAMIN D ORAL) multivitamin (THERAGRAN) 0 10/14/2010 12/09/2011 tablet documented as of this encounter Plan of Treatment Not on filedocumented as of this encounter Procedures Procedure Name Priority Date/Time Associated Diagnosis Comme nts CT LOWER EXTREMITY Routine 06/21/2011 3:12 PM Pain in joint, l ower Results for this WO CONTRAST EST leg procedure are in Knee joint the results replacement by other section . means documented in this encounter Results CT LOWER EXTREMITY WO CONTRAST (06/21/2011 3:12 PM EST) Anatomical Region Laterality Modality Hip, Leg, Knee, Thigh, Ankle, Foot Compu marisela Tomography Specimen (Source) Anatomical Collection Method Collection Time Re ceived Time Location / / Volume Laterality 06/21/2011 3:12 PM EST Impressions 06/22/2011 5:53 PM EST IMPRESSION: ?? Patient is status post total knee arthro plasty. ??There is a single focus of lucency at the posterior aspect of the f emur medially suggestive of osteolysis. ?? Narrative 06/22/2011 5:[address] OF THE RIGHT KNEE, 06/21/11: ?? CLINICAL HISTORY: ??Right knee. ??Status post right total knee arthroplasty. ?? Knee pain. ??There is concern for osteol ysis. ?? TECHNIQUE: CT images were acquired witho ut contrast. ??The study was reconstructed into multiplanar two-dimen sional images. ?? FINDINGS: The patient is status post tot al knee arthroplasty. ??The tibial component is a long stem component sugge sting previous revision. ??In addition, there is extensive screw fixation of thi s component and the fixation incorporates an fusion across the proxim al tibia/fibular joint. ?? No fracture is identified. ??I do not se e CT evidence of loosening. ??One focus of lucency is seen in the bone and sugge sts the possibility of osteolysis. ?? This well-defined area of radiolucency i s seen immediately adjacent to the posterior aspect of the femoral prosthes is at the medial femoral condyle. ??This defect measures approximately 2 cm in ma ximal diameter. ?? Procedure Note Ted Saldivar MD - 06/22/2011Forma tting of this note might be different from the original. CT OF THE RIGHT KNEE, 06/21/11: CLINICAL HISTORY: Right knee. Status pos t right total knee arthroplasty. Knee pain. There is concern for osteolys is. TECHNIQUE: CT images were acquired witho ut contrast. The study was reconstructed into multiplanar two-dimen sional images. FINDINGS: The patient is status post tot al knee arthroplasty. The tibial component is a long stem component sugge sting previous revision. In addition, there is extensive screw fixation of thi s component and the fixation incorporates an fusion across the proxim al tibia/fibular joint. No fracture is identified. I do not see CT evidence of loosening. One focus of lucency is seen in the bone and sugge sts the possibility of osteolysis. This well-defined area of radiolucency i s seen immediately adjacent to the posterior aspect of the femoral prosthes is at the medial femoral condyle. This defect measures approximately 2 cm in ma ximal diameter. IMPRESSION IMPRESSION: Patient is status post total knee arthro plasty. There is a single focus of lucency at the posterior aspect of the f emur medially suggestive of osteolysis. [facility] IMG CT ORDERABLES documented in this encounter Visit Diagnoses Diagnosis S/P TKR (total knee replacement) Knee joint replacement by other means Right knee pain Pain in joint, lower leg documented in this encounter Care Teams Electronic Warfare Technician Relationship Specialty Start Date End Date Javi Izaguirre DO PCP - General 06/22/[address] [place] [address] documented as of this encounter
--- OUTSIDE RECORDS SUMMARY | 2022-04-22 01:45 | XMS_ITS | Encounter Summary ---
:1945 Author Organization [facility] [place] [address] Care Team Providers Name Role Phone Javi Izaguirre DO Primary Care Provider Encounter Details Date Type Department Care Team Description 05/11/2011 Notes Only [facility] [address] [facility] RADIATION ONCOLOGY [place], [place] [phone] [place] [address] (Wo rk) Social History Tobacco Use Types Packs/Day Years Used Date Never Smoker Sex Assigned at Date Recorded Female 03/31/2021 3:33 PM EDT documented as of this encounter Progress Notes Jeanine Lord MD - 05/11/2011 11:38 AM EDT Ms. Mcdonald's recently completed course of xrt can be summarized as follows: 03/08/11 through 04/22/11: 45 Gy/25 fxs to L breast & axilla, followed by cone down & boost to seroma cavity of 16 Gy/8 fxs, bringing seroma cavity to 61 Gy/33 fxs. She tolerated xrt well, w/expected skin reaction in treated area, w/exam near completion of xrt showing mild erythema of skin in tx'd area, most pronounced laterally. Her skin rxn was tx'd w/1% hydrocortisone cream & fannie's cream. She has been rx'd femara by Dr. Cuevas. LUCIANA 1-2 mos. documented in this encounter Plan of Treatment Not on filedocumented as of this encounter Visit Diagnoses Not on filedocumented in this encounter Care Teams Pump Installation And Servicer Relationship Specialty Start Date End Date Javi Izaguirre DO PCP - General 06/22/[address] [place] [address] documented as of this encounter
--- OUTSIDE RECORDS SUMMARY | 2022-04-22 01:45 | XMS_ITS | Encounter Summary ---
:1945 Author Organization [facility] [place] [address] Care Team Providers Name Role Phone Dmitriy, Javi BURKS Primary Care Provider Reason for Visit Reason Comments Chemotherapy Week 11 of Taxol Encounter Details Date Type Department Care Team Description 02/03/2011 Office Visit Hematology Oncology at CLINIC, DR BLAS Ca ncer of breast (Primary Dx); [facility] HEM/ONC Malignant neoplasm of breast (female), unspecified site [address] [place] [phone] Social History Tobacco Use Types Packs/Day Years Used Date Never Smoker Sex Assigned at Date Recorded Female 03/31/2021 3:33 PM EDT documented as of this encounter Progress Notes Rosi Arevalo, RN - 02/03/2011 10:36 AM EDT INFUSION THERAPY ADMINISTRATION NOTES TIME TREATMENT STARTED: 1030 TIME TREATMENT ENDED: 1320 DIAGNOSIS: Breast Ca PROTOCOL: None CYCLE #: 11 of 12 cycles REASON FOR VISIT: Taxol SUBJECTIVE Sofía offers no complaints. OBJECTIVE LAB DATA: 02/03/2011 WBC 3.79 Hg 12.6 Hct 37.5 PLAT 286 ANC 2.60 IV ACCESS: Mediport BLOOD RETURN: No, had dye study at [facility] few mts ago and results were in mediport line in [facility] ANY S/S OF INFECTION/EXTRAVASATIONS: None IV FLUSHED WITH: 20cc Normal Saline and 500 units of heparin IV DISCONTINUED: Yes Pre administration: Chemotherapy orders independently verified for drug name, route, and dosage per patient's height, weight and BSA by Rosi Arevalo RN and Clarissa Gonzalez RN. At time of administration: Immediately prior to administration Rosi Arevalo RN and Soni Sevilla RN independently verified thepatient's identity using the patient's name and date of , and confirmed the drug name, dose, volume, route, expiration date/time and rate of administration delivered via IV pump. Consent for treatment verified in CIS. REACTIONS (DESCRIPTION, TIME, INTERVENTION AND EFFECTIVENESS) none ASSESSMENT Soni was awake, alert and he tolerated treatment well. PLAN Return to clinic next week for appt w Dr Cuevas and last dose of Taxol. documented in this encounter Plan of Treatment [...] Rate Site dexamethasone sodium (PF) 10 Given 02/03/2011 11:02 AM EDT 236 mL/hr mg, ondansetron (ZOFRAN) 16 mg in sodium chloride 0.9% 59 mL IVPB Intravenous, at 236 mL/hr, ONCE, On Delaney 02/03/11 at 1030, 1 dose famotidine (PEPCID) 20 mg, Given 02/03/2011 11:20 AM EDT 210 mL/hr diphenhydrAMINE (BENADRYL) 25 mg in sodium chloride 0.9% 52.5 mL IVPB Intravenous, at 210 mL/hr, ONCE, On Delaney 02/03/11 at 1030, 1 dose paclitaxel (TAXOL) 143 mg in New Bag 02/03/2011 11:59 AM EDT 143 m g 273.8 mL/hr dextrose 5% Non-PVC 273.8333 mL chemo infusion 143 mg, Intravenous, ONCE, 1 dose, On Delaney 02/03/11 at 1030, Administer over 1 Hours documented in this encounter Care Teams Boiler Cleaner Relationship Specialty Start Date End Date Javi Izaguirre DO PCP - General 06/22/[address] [place] [address] documented as of this encounter
--- OUTSIDE RECORDS SUMMARY | 2022-04-22 01:45 | XMS_ITS | Encounter Summary ---
:1945 Author Organization [facility] [address] Care Team Providers Name Role Phone DmitriyJavi agrawal Primary Care Provider Reason for Visit Reason Comments Breast Cancer Encounter Details Date Type Department Care Team Description 06/05/2012 Follow-Up Hematology Oncology at Antony Cuevas MD Breast cancer (Primary [address] Dx) [address] [place] [place] [phone] Social History Tobacco Use Types Packs/Day Years Used Date Never Smoker Smokeless Tobacco: Never Used Alcohol Use Standard Drinks/Week Comments Yes 21 (1 standard drink = 0.6 oz pure alcoh ol) Sex Assigned at Date Recorded Female 03/31/2021 3:33 PM EDT documented as of this encounter Last Filed Vital Signs Vital Sign Reading Time Taken Comments Blood Pressure 157/80 06/05/2012 10:54 AM EST Pulse 67 06/05/2012 10:54 AM EST Temperature 36.5 ??C (97.7 ??F) 06/05/2012 10:54 AM EST Respiratory Rate 16 06/05/2012 10:54 AM EST Oxygen Saturation 98% 06/05/2012 10:54 AM EST Inhaled Oxygen Concentration - - Weight 71.2 kg (157 lb) 06/05/2012 10:54 AM EST Height 165.1 cm (5' 5) 06/05/2012 10:54 AM EST Body Mass Index 26.13 06/05/2012 10:54 AM EST documented in this encounter Progress Notes Steve Cuevas MD - 06/05/2012 11:53 AM EST DIAGNOSIS:1) Stage IIA (pT1c pN1 MX), IDC, low-grade, ER/IL positive, 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 S/P 4 cycles AC and 12 weeks Taxol completed 02/07 now on Femara. 2) residual neuropathy lower extremities. 3) long-standing moderately severe arthralgias and myalgias Subjective: Sofía comes in today for followup. She is doing well overall although does have continued arthritis symptoms. The arthritis symptoms of gotten bad enough especially in her right knee that she is looking into a revision of her right knee replacement. The neuropathy has been a bit more of an issue at [facility] but she does not describe overt pain in her feet. She notes she has flat feet most of her problems there are from that. She still has a little bit of mild neuropathy but is going on walks and she simply uses a walking stick so she is a [...] Neurologic: Normal Laboratory is reviewed and her CBC and CMP are completely normal Assessment/Plan: Sofía is tolerating the Femara well. At this point however it is very difficult to know how much of her arthritis and myalgia symptoms are attributed to the Femara and home which are just the patient'sbaseline problems. Since there is near equivalence with tamoxifen as far as risk reduction from recurrent breast cancer I again went over the risks and side effects of that medication with her today and after discussion we decided to go ahead and make a change to tamoxifen 20 mg daily. Her mammograms are [place] [facility]. At this time there is no evidence of recurrent breast cancer. She will give a call if she has any problems arise in the interim. She has followup is arranged for 6 months from nowwith a CBC and CMP prior to the appointment. documented in this encounter Plan of Treatment Not on filedocumented as of this encounter Visit Diagnoses Diagnosis Breast cancer - Primary Malignant neoplasm of breast (female), u nspecified site documented in this encounter Care Teams Farm Products Shipper Relationship Specialty Start Date End Date Javi Izaguirre DO PCP - General 06/22/[address] [place] [address] documented as of this encounter
--- OUTSIDE RECORDS SUMMARY | 2022-04-22 01:45 | XMS_ITS | Encounter Summary ---
:1945 Author Organization [place] [address] Care Team Providers Name Role Phone Javi Izaguirre DO Primary Care Provider Encounter Details Date Type Department Care Team Description 02/15/2011 Hospital [place] [address] Social History Tobacco Use Types Packs/Day [...] on filedocumented in this encounter Care Teams Film Crew Member Relationship Specialty Start Date End Date Javi Izaguirre DO PCP - General 06/22/[address] [place] [address] documented as of this encounter
--- OUTSIDE RECORDS SUMMARY | 2022-04-22 01:45 | XMS_ITS | Encounter Summary ---
:1945 Author Organization [facility] [place] [address] Care Team Providers Name Role Phone Javi Izaguirre DO Primary Care Provider Reason for Visit Reason Onset Date Comments Medication Refill 09/26/2012 Encounter Details Date Type Department Care Team Description 09/26/2012 Refill Hematology Oncology at Eugenia Morrow RN Breast cancer (Primary [facility] Dx) [address] [place] [phone] Social History Tobacco Use Types Packs/Day Years Used Date Never Smoker Smokeless Tobacco: Never Used Alcohol Use Standard Drinks/Week Comments Yes 21 (1 standard drink = 0.6 oz pure alcoh ol) Sex Assigned at Date Recorded Female 03/31/2021 3:33 PM EDT documented as of this encounter Miscellaneous Notes Telephone Encounter - Eugenia Morrow RN - 09/26/2012 3:38 PM EST Phone call from patient to question if she can resume femara. Per patient report she started femara about one year ago and then subsequently started to have difficultly sleeping and some myalgia. In May 2012 she was switched to tamoxifen. She states that since switching she has continued to have difficulty sleeping and myalgia but has also developed some flatbed stitcher symptoms. She stopped tamoxifen about12 days ago and is seeing drafting technician this afternoon and is seeing PCP re: sleeping difficulties. She now feels that the original symptoms of problems sleeping and myalgia was not due to femara and she wonders if next week she can restart femara. My understanding is femara has less side affects and since I now feel that my original symptoms were not due to the femara I wondered if I could resume that? Message forwarded to Dr. Cuevas for his response. Dr. Cuevas consulted and approves returning to therapy with Femara. New prescription sent in. documented in this encounter Plan of Treatment Not on filedocumented as of this encounter Visit Diagnoses Diagnosis Breast cancer - Primary Malignant neoplasm of breast (female), u nspecified site documented in this encounter Care Teams Adjunct Professor Of [place]. History Relationship Specialty Start Date End Date Javi Izaguirre DO PCP - General 06/22/[address] [place] [address] documented as of this encounter
--- OUTSIDE RECORDS SUMMARY | 2022-04-22 01:45 | XMS_ITS | Encounter Summary ---
:1945 Author Organization [facility] [place] [address] Care Team Providers Name Role Phone DmitriyJavi agrawal Primary Care Provider Reason for Visit Reason Onset Date Comments Other 09/03/2012 Encounter Details Date Type Department Care Team Description 09/03/2012 Telephone [place] [facility] [place] [address] Social History Tobacco Use Types Packs/Day Years Used Date Never Smoker Smokeless Tobacco: Never Used Alcohol Use Standard Drinks/Week Comments Yes 21 (1 standard drink = 0.6 oz pure alcoh ol) Sex Assigned at Date Recorded Female 03/31/2021 3:33 PM EDT documented as of this encounter Miscellaneous Notes Telephone Encounter - Litzy Dangelo RN - 09/03/2012 5:30 PM EST Patient advised that her request to move forward regarding the revision of her right knee replacement versus a total knee replacement has been initiated. A message has been sent to Dr. Lau via a staff message today. [facility].She is not interested in surgery until Spring, as the brace that was ordered for her is providing stability and allowing her to ski. documented in this encounter Plan of Treatment Not on filedocumented as of this encounter Visit Diagnoses Not on filedocumented in this encounter Care Teams Tree And Shrub Technician Relationship Specialty Start Date End Date Javi Izaguirre DO PCP - General 06/22/[address] [place] [address] documented as of this encounter
--- OUTSIDE RECORDS SUMMARY | 2022-04-22 01:45 | XMS_ITS | Encounter Summary ---
:1945 Author Organization [facility] [place] [address] Care Team Providers Name Role Phone Javi Izaguirre DO Primary Care Provider Encounter Details Date Type Department Care Team Description 06/04/2012 Hospital Encounter XRay at [facility] S/P knee replacement [address] [place] [phone] Social History Tobacco Use Types Packs/Day [...] End Date letrozole (FEMARA) 2.5 mg Take 1 tablet by 90 tablet 3 04/3006/05/2012 tabletIndications: Breast mouth daily. cancer omeprazole (PRILOSEC) 20 Take 20 mg by [...] Associated Diagnosis Comme nts XR KNEE AP AND LAT Routine 06/04/2012 1:25 PM S/P knee replace ment Results for this BILAT EST procedure are i n the results section. documented in this encounter Results XR knee bilateral1 or [...] encounter Visit Diagnoses Diagnosis S/P knee replacement Knee joint replacement by other means documented in this encounter Care Teams Sprayer Insecticide Relationship Specialty Start Date End Date Javi Izaguirre DO PCP - General 06/22/10 [address] [facility] [place] [address] documented as of this encounter
--- OUTSIDE RECORDS SUMMARY | 2022-04-22 01:45 | XMS_ITS | Encounter Summary ---
:1945 Author Organization [facility] [address] Care Team Providers Name Role Phone Dmitriy Javi BURKS Primary Care Provider Encounter Details Date Type Department Care Team Description 09/21/2012 Telephone Hematology [facility]cology at [place] [address] [phone] Social History Tobacco Use Types Packs/Day Years Used Date Never Smoker Smokeless Tobacco: Never Used Alcohol Use Standard Drinks/Week Comments Yes 21 (1 standard drink = 0.6 oz pure alcoh ol) Sex Assigned at Date Recorded Female 03/31/2021 3:33 PM EDT documented as of this encounter Miscellaneous Notes Telephone Encounter - Romy Toscano RN - 09/21/2012 10:50 AM EST Phone call from patient to question if she can resume femara. Per patient report she started femara about one year ago and then subsequently started to have difficultly sleeping and some myalgia. In May 2012 she was switched to tamoxifen. She states that since switching she has continued to have difficulty sleeping and myalgia but has also developed some farm product purchaser symptoms. She stopped tamoxifen about12 days ago and is seeing human resource professional this afternoon and is seeing PCP re: [...] forwarded to Dr. Cuevas for his response. documented in this encounter Plan of Treatment Not on filedocumented as of this encounter Visit Diagnoses Not on filedocumented in this encounter Care Teams Tile Ditcher Relationship Specialty Start Date End Date Javi Izaguirre DO PCP - General 06/22/10 [address] [place] [address] documented as of this encounter
--- OUTSIDE RECORDS SUMMARY | 2022-04-22 01:45 | XMS_ITS | Encounter Summary ---
:1945 Author Organization [facility] [address] Care Team Providers Name Role Phone DmitriyJavi agrawal Primary Care Provider Reason for Visit Reason Comments Radiation Follow-up Encounter Details Date Type Department Care Team Description 12/12/2011 [facility] (Primary Dx) [place] [address] [place], [place] RADIATION ONCOL OGY [address] [place] [address] [phone] (Wo rk) Social History Tobacco Use Types Packs/Day Years Used Date Never Smoker Smokeless Tobacco: Never Used Alcohol Use Standard Drinks/Week Comments Yes 21 (1 standard drink = 0.6 oz pure alcoh ol) Sex Assigned at Date Recorded Female 03/31/2021 3:33 PM EDT documented as of this encounter Last Filed Vital Signs Vital Sign Reading Time Taken Comments Blood Pressure 130/76 12/12/2011 1:00 PM EDT Pulse 64 12/12/2011 1:00 PM EDT Temperature - - Respiratory Rate - - Oxygen Saturation 98% 12/12/2011 1:00 PM EDT Inhaled Oxygen Concentration - - Weight - - Height - - Body Mass Index - - documented in this encounter Patient Instructions Patient InstructionsJeanine Lord MD - 12/12/2011 2:27 PM EDT A left sided mammogram has been ordered. We will mail you a letter in 5 months with an appointment to see me in 6 months. If you continue followup with me, I will be happy to order your periodic mammograms. If you elect to continue followup only with Dr. uCevas, he will likely order the followup mammograms. documented in this encounter Progress Notes Jeanine Lord MD - 12/25/2011 2:06 PM EDT Subjective: Patient ID: Sofía Mcdonald is a 66 y.o. female s/p xrt completed 7.5 mos ago. HPI Xrt to L breast & L axilla for stage IIA, pT1c pN1mi, IDC, low gr, ERPR+, Clf2uie-, s/p partial mastectomy & SNB followed by reexcision & then adjuvant chemo, followed by xrt. Continuesfemara, which was started after xrt. 06/06/11 LUCIANA w/Dr. Cuevas, who plans to see her again later this wk. 07/14/11 R mmg: Neg. Review of Systems No pain. Skin tx'd area fine. Energy level ok. Objective: Physical Exam Constitutional: She is oriented [...] thought content normal. Assessment and Plan: DARSHANA. Baseline post xrt L mmg. FU 6 mos. No problem-specific visit notes found for this encounter. documented in this encounter Plan of Treatment Not on filedocumented as of this encounter Visit Diagnoses Diagnosis Breast CA - Primary Malignant neoplasm of breast (female), u nspecified site documented in this encounter Care Teams Supervisor Beater Room Relationship Specialty Start Date End Date Javi Izaguirre DO PCP - General 06/22/10 [address] [place] [address] documented as of this encounter
--- OUTSIDE RECORDS SUMMARY | 2022-04-22 01:45 | XMS_ITS | Encounter Summary ---
:1945 Author Organization [facility] [place] [address] Care Team Providers Name Role Phone Dmitriy Javi BURKS Primary Care Provider Reason for Visit Reason Onset Date Comments Other 03/21/2011 c/o nausea and dizzi ness Encounter Details Date Type Department Care Team Description 03/21/2011 Telephone Radiation Oncology at [facility] (c/o nausea and [facility] Block dizziness) [address] [place] [phone] Social History Tobacco Use Types Packs/Day Years Used Date Never Smoker Sex Assigned at Date Recorded Female 03/31/2021 3:33 PM EDT documented as of this encounter Miscellaneous Notes Telephone Encounter - Nicci Garcia RN - 03/21/2011 6:12 PM EDT Patient called today around 3PM stating that around 2:30 she began to feel nauseous and dizzy when going from a sitting to standing position. She said she had spells like this with chemo, but didn't think she would have them w/ radiation. I instructed patient that she was correct in knowing that radiation to the breast should not cause these symptoms. She denies vomiting ( she just took zofran) Her last BM was yesterday morning. She denies sweating, chest pains or vertigo just lightheaded. She took her BP and called me back: 154/93 She also c/o burping a lot and starting to have a runny nose. Patient was instructed to call her PCP if this continues to bother her. She was encouraged to drink plenty of fluids. documented in this encounter Plan of Treatment Not on filedocumented as of this encounter Visit Diagnoses Not on filedocumented in this encounter Care Teams Power Checker Relationship Specialty Start Date End Date Javi Izaguirre DO PCP - General 06/22/[address] [place] [address] [address] [place] [address] documented as of this encounter
--- OUTSIDE RECORDS SUMMARY | 2022-04-22 01:45 | XMS_ITS | Encounter Summary ---
:1945 Author Organization [facility] [place] [address] Care Team Providers Name Role Phone DmitriyJavi agrawal Primary Care Provider Reason for Visit Reason Comments Breast Cancer Encounter Details Date Type Department Care Team Description 12/19/2012 Follow-Up Hematology Oncology at Antony Cuevas MD Breast cancer (Primary [address] Dx) [address] [place] [phone] Social History Tobacco Use Types Packs/Day Years Used Date Former Smoker Smokeless Tobacco: Never Used Alcohol Use Standard Drinks/Week Comments Yes 21 (1 standard drink = 0.6 oz pure alcoh ol) Sex Assigned at Date Recorded Female 03/31/2021 3:33 PM EDT documented as of this encounter Last Filed Vital Signs Vital Sign Reading Time Taken Comments Blood Pressure 134/82 12/19/2012 3:08 PM EDT Pulse 66 12/19/2012 3:08 PM EDT Temperature 36.8 ??C (98.2 ??F) 12/19/2012 3:08 PM EDT Respiratory Rate 18 12/19/2012 3:08 PM EDT Oxygen Saturation 97% 12/19/2012 3:08 PM EDT Inhaled Oxygen Concentration - - Weight 71.9 kg (158 lb 8 oz) 12/19/2012 3:08 PM EDT Height 166.4 cm (5' 5.51) 12/19/2012 3:08 PM EDT Body Mass Index 25.97 12/19/2012 3:08 PM EDT documented in this encounter Progress Notes Steve Cuevas MD - 12/19/2012 3:16 PM EDT DIAGNOSIS:1) Stage IIA (pT1c pN1 MX), IDC, low-grade, ER/OK positive, 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 S/P 4 cycles AC and 12 weeks Taxol completed 02/07 now on Femara. 2) residual neuropathy lower extremities. 3) long-standing moderately severe arthralgias and myalgias Subjective: Sofía comes in today for followup. We had placed her on tamoxifen last time I saw her because of thepossibility that the aromatase inhibitors were causing her joint and muscle pain. She called this past August and noted that that had not improved and in addition she was having some spanish linguist symptoms.andsaw her ballpoint pen cartridge tester. We did restart her on Femara and she's been tolerating that well. This Monday she is going in for a revision on her right knee replacement. She notes she was down over the winter but a 2-1/2 week cruise to why he seemed to turn everything around and she's been in great spirits since then. She's not having any particular problems no lumps or bumps or other difficulties. Past medical history and social history are [...] is reviewed and her white count is 7.0 hemoglobin 14.1 hematocrit 43% and platelet count 268 she had her CMP drawn with her preop lab and they really only ran a basic metabolic panel. Creatinine however was normal at 0.67 as were electrolytes. Examination CHEST ROUTINE 2 VIEWS Pre/Op Clinical History Preoperative right knee surgery Comparison None Technique Frontal and lateral standing views of the chest. Findings The lungs are clear. The cardiomediastinal silhouette, shannan and pulmonary vasculature are normal. Minimal multi-level disc degenerative change and exaggeration of the normal thoracic kyphosis. Impression No acute cardiopulmonary pathology. BILATERAL MAMMOGRAPHY 07/05/12 REASON FOR EXAM: Screening. History of Left breast cancer. TECHNIQUE: Cranio-caudal (CC) and mediolateral oblique (MLO) views of both breasts obtained with direct digital capture. The exam was evaluated by CAD Version 8.3.17. FINDINGS: This is a negative mammogram (ACR Category 1). There is a stable fibroglandular pattern without significant change as compared to prior studies. There is no mammographic evidence of cancer. The breasts are of scattered density. There are post-surgical changes in the Left breast. CONCLUSION This is a NEGATIVE mammogram (ACR Category 1). Routine screening mammography is recommended with the frequency dependent on the patient's age and breast cancer risk factors. Assessment/Plan: Sofía is tolerating the Femara well. She has no evidence for recurrent breast cancer. We did not check an ALP this time but considering she is symptom-free I think it's fine to recheck that next visit.We'll arrange for followup in 6 months with a CBC and CMP in her mammography is due in June. She'll continue on Femara 2.5 mg daily. She knows to call if any problems or issues develop in the interim. documented in this encounter Plan of Treatment Not on filedocumented as of this encounter Visit Diagnoses Diagnosis Breast cancer - Primary Malignant neoplasm of breast (female), u nspecified site documented in this encounter Care Teams Fish Cutting Machine Operator Relationship Specialty Start Date End Date Javi Izaguirre DO PCP - General 06/22/[address] [place] [address] documented as of this encounter
--- OUTSIDE RECORDS SUMMARY | 2022-04-22 01:45 | XMS_ITS | Encounter Summary ---
:1945 Author Organization [facility] [place] [address] Care Team Providers Name Role Phone Dmitriy Javi BURKS Primary Care Provider Reason for Visit Reason Comments Radiation Treatment Encounter Details Date Type Department Care Team Description 04/12/2011 Follow-Up Radiation Oncology at Lucie Lord MD Breast ca (Primary Dx) [place] [address] [place], [place] RADIATION ONCOL OGY [address] [place] [address] [phone] (Wo rk) Social History Tobacco Use Types Packs/Day Years Used Date Never Smoker Sex Assigned at Date Recorded Female 03/31/2021 3:33 PM EDT documented as of this encounter Last Filed Vital Signs Vital Sign Reading Time Taken Comments Blood Pressure 138/78 04/12/2011 8:57 AM EDT Pulse 68 04/12/2011 8:57 AM EDT Temperature 36.7 ??C (98.1 ??F) 04/12/2011 8:57 AM EDT Respiratory Rate 18 04/12/2011 8:57 AM EDT Oxygen Saturation 97% 04/12/2011 8:57 AM EDT Inhaled Oxygen Concentration - - Weight 72.6 kg (160 lb) 04/12/2011 8:57 AM EDT Height - - Body Mass Index 28.17 02/24/2011 12:50 PM EDT documented in this encounter Progress Notes Jeanine Lord MD - 04/12/2011 9:31 AM EDT DIAGNOSIS: Breast, L, IDC, low gr, ERPR+, Xwi4iyu-, stage IIA, pT1c pN1mi, s/p partial mastectomy & SNB followed by reexcision & then chemo. CURRENT TREATMENT DOSE: 45 Gy ANTICIPATED TOTAL DOSE: 61 Gy Current # of xrt received: 25 Anticipated total # of xrt txs: 33 Evaluation of port verification films: ok Changes in Medical Condition: Feeling pretty good. Energy level some days 40- 50%, some days 80-90%, improving; has done more walking. Back pain under control w/ibuprofen & exercising is helping. Physical Exam: A&Ox3, in NAD. Mild erythema of skin in L inframammary fold w/mild folliculitis; skin intact. Response to xrt: As expected. Radiation Related Symptoms: Skin rxn. Treatment for Symptom Control: Brent's. Recommendation on Continuing Course of Tx: Cont. documented in this encounter Plan of Treatment Not on filedocumented as of this encounter Visit Diagnoses Diagnosis Breast CA - Primary Malignant neoplasm of breast (female), u nspecified site documented in this encounter Care Teams Manager Revenue Relationship Specialty Start Date End Date Javi Izaguirre DO PCP - General 06/22/[address] [place] [address] documented as of this encounter
--- OUTSIDE RECORDS SUMMARY | 2022-04-22 01:45 | XMS_ITS | Encounter Summary ---
:1945 Author Organization [facility] [place] [address] Care Team Providers Name Role Phone DmitriyJavi agrawal Primary Care Provider Reason for Visit Reason Comments Radiation Treatment Encounter Details Date Type Department Care Team Description 04/25/2011 Office Visit Radiation Oncology at Lucie Lord MD Breast ca (Primary Dx) [address] [place], [place] RADIATION ONCOL OGY [address] [place] [address] [phone] Social History Tobacco Use Types Packs/Day Years Used Date Never Smoker Sex Assigned at Date Recorded Female 03/31/2021 3:33 PM EDT documented as of this encounter Progress Notes Jeanine Lord MD - 04/26/2011 6:12 PM EDT Pt not seen in clinic today. documented in this encounter Plan of Treatment Not on filedocumented as of this encounter Visit Diagnoses Diagnosis Breast CA - Primary Malignant neoplasm of breast (female), u nspecified site documented in this encounter Care Teams Equipment Manager Relationship Specialty Start Date End Date Javi Izaguirre DO PCP - General 06/22/[address] [place] [address] documented as of this encounter
--- OUTSIDE RECORDS SUMMARY | 2022-04-22 01:45 | XMS_ITS | Encounter Summary ---
:1945 Author Organization [facility] [place] [address] Care Team Providers Name Role Phone Javi Izaguirre DO Primary Care Provider Reason for Visit Reason Comments Breast Cancer last taxol scheduled today a fter seeing provider Encounter Details Date Type Department Care Team Description 02/10/2011 Follow-Up Hematology Oncology at Audra Heard APRN Breast cancer (Primary [address] Dx) [address] [place] [id number] [phone] Social History Tobacco Use Types Packs/Day Years Used Date Never Smoker Sex Assigned at Date Recorded Female 03/31/2021 3:33 PM EDT documented as of this encounter Last Filed Vital Signs Vital Sign Reading Time Taken Comments Blood Pressure 135/67 02/10/2011 11:31 AM EDT Pulse 62 02/10/2011 11:31 AM EDT Temperature 36.9 ??C (98.4 ??F) 02/10/2011 11:31 AM EDT Respiratory Rate 18 02/10/2011 11:31 AM EDT Oxygen Saturation 97% 02/10/2011 11:31 AM EDT Inhaled Oxygen Concentration - - Weight 74.5 kg (164 lb 3.9 oz) 02/10/2011 11:31 AM EDT Height 160.5 cm (5' 3.19) 02/10/2011 11:31 AM EDT Body Mass Index 28.92 02/10/2011 11:31 AM EDT documented in this encounter Progress Notes Kiana Heard, TABLE GAMES FLOOR SUPERVISOR - 02/10/2011 2:59 PM EDT Hematology/[facility] [place], [address] (ph) - [phone] (fax) ESTABLISHED PATIENT EVALUATION: INTERIM HISTORY: Patient returns to the clinic today with breast cancer for her final dose of adjuvant Taxol, with XRT due to begin 03/07/11. She is fatigued and naps, otherwise she has no problems or complaints. Her appetite is good. INTERIM SOCIAL/FAMILY HISTORY: No interval change. REVIEW OF SYSTEMS: Energy: fatigue Pain: no Appetite:good Fevers/chills/drenching sweats:No Bruising/bleeding/melena:No Recent infections:No HEENT: negative Nausea/vomiting/diarrhea/constipation:No Dysuria: No SOB/cough/chest pain:No Change in adenopathy or other masses:No Unexpected weight loss or gain:No Skin rashes or petechiae:No Musculoskeletal complaints:No Extremities: Negative upper and lower bilaterally Neurologic symptoms:No PHYSICAL EXAM: Afebrile. Alopecia. NAD, A & O x 3. HEENT: Sclera anicteric, oral pharynx is clear. Skin: Without rash or petechia. Lymph: No cervical, supraclavicular, axillary lymphadenopathy. Lungs: Bronchovesicular breath sounds throughout, no wheezes, rales, rhonci. Cardiac: Regular rate rhythm, S1, S2, no murmur, rub or gallop. Abdomen: Soft, non-tender, spleen and liver non palpable. Extremities: No lower extremity edema. M/S: No sternal or spinal tenderness. Neurologic: Gait steady, speech clear, cognition intact, no focal neurologic deficit. RADIOLOGY: no new studies LABORATORY: WBC 4.36, Hg 12.5, PLT 276k, ANC 3.14, bun 16, creat 0.6, AP 86, AST 29, ALT 50, Na 140,K 4.2. ASSESSMENT/PLAN: Breast Cancer ER/WY positive - she completes her chemotherapy today with the 12 week of Taxol. She has tolerated this well and her labs are adequate. Next step will be adjuvant XRT planned to start ;03/10, and hormonal treatment with aromatase inhibitor for 5 years. RTC in two weeks w/labs, consider hormonal treatment and toxicity Check. Norberto was reminded to call in the interim should questions or concerns arise. documented in this encounter Procedure Notes Provider, Scanning - 02/10/2011 11:03 AM EDTAssociated Order(s): SCAN DOC: LAB documented in this encounter Plan of Treatment Not on filedocumented as of this encounter Procedures Procedure Name Priority Date/Time Associated Diagnosis Comme nts LAB SCAN 02/10/2011 11:03 AM Results for this EDT procedure are i n the results section . documented in this encounter Results SCAN DOC: LAB (02/10/2011 11:03 AM EDT) Narrative 02/10/2011 11:03 AM EDT Procedure Note Provider, Scanning - 02/10/2011 11:03 AM EDT Scanning Provider MEDIA MGR SCAN EXT ORDR/RSLT documented in this encounter Visit Diagnoses Diagnosis Breast cancer - Primary Malignant neoplasm of breast (female), u nspecified site documented in this encounter Care Teams Union Steward Relationship Specialty Start Date End Date Javi Izaguirre DO PCP - General 06/22/[address] [place] [address] documented as of this encounter
--- OUTSIDE RECORDS SUMMARY | 2022-04-22 01:45 | XMS_ITS | Encounter Summary ---
:1945 Author Organization [facility] [place] [address] Care Team Providers Name Role Phone Javi Izaguirre Primary Care Provider Encounter Details Date Type Department Care Team Description 07/05/2012 Hospital Encounter Mammography at [facility] Jeanine Coreas MD [facility] [place] [address] [place] [address] Social History Tobacco Use Types Packs/Day Years Used Date Never Smoker Smokeless Tobacco: Never Used Alcohol Use Standard Drinks/Week Comments Yes 21 (1 standard drink = 0.6 oz pure alcoh ol) Sex Assigned at Date Recorded Female 03/31/2021 3:33 PM EDT documented as of this encounter Medications at Time of Discharge Medication Sig Dispensed Refills Start Date End Date tamoxifen (NOLVADEX) 20 mg Take 1 tablet by 90 tablet 3 09/26/2012 tabletIndications: Breast mouth daily. cancer omeprazole (PRILOSEC) 20 Take 20 mg by mouth 0 02/11/2013 mg capsule daily. acetaminophen (TYLENOL) Take 1,000 mg by 0 12/22/2012 500 mg tablet mouth every 6 hours as needed. LORazepam (ATIVAN) 1 mg Take 1 mg by mouth 0 12/11/2014 tablet every 6 hours as needed. ibuprofen (ADVIL;MOTRIN) Take 600 mg by 0 12/10/2012 600 mg tablet mouth every 6 hours as needed. Meclizine 25 mg Cap Take 1 tablet by 0 12/19/2012 mouth as needed. documented as of this encounter Plan of Treatment Not on filedocumented as of this encounter Procedures Procedure Name Priority Date/Time Associated Diagnosis Comme nts MAMMO SCREENING CAD Routine 07/05/2012 1:20 PM Re sults for this BILATERAL EST procedure are i n the results section. documented in this encounter Results Mammo digital bilateral Screening with CAD (07/05/2012 1:20 PM EST) Anatomical Region Laterality Modality Breast Bilateral Mammography Specimen (Source) Anatomical Collection Method Collection Time Re ceived Time Location / / Volume Laterality 07/05/2012 1:20 PM EST Narrative 07/09/2012 9:25 AM EST BILATERAL MAMMOGRAPHY ?? REASON FOR EXAM: Screening. History of L eft breast cancer. ?? TECHNIQUE: Cranio-caudal (CC) and mediol ateral [...] [facility] Procedure Note Sonia Werner MD - 07/09/2012 BILATERAL MAMMOGRAPHY REASON FOR EXAM: Screening. History of L eft breast cancer. TECHNIQUE: Cranio-caudal (CC) and mediol ateral oblique [...] patient b y [facility]. Jeanine Lord MD IMG MAMMO ORDERABLES documented in this encounter Visit Diagnoses Not on filedocumented in this encounter Care Teams Psychology Clinician Relationship Specialty Start Date End Date Javi Izaguirre DO PCP - General 06/22/[address] [place] [address] documented as of this encounter
--- OUTSIDE RECORDS SUMMARY | 2022-04-22 01:45 | XMS_ITS | Encounter Summary ---
:1945 Author Organization [facility] [place] [address] Care Team Providers Name Role Phone Javi Izaguirre DO Primary Care Provider Reason for Visit Reason Onset Date Comments Medication Refill 05/16/2012 Encounter Details Date Type Department Care Team Description 05/16/2012 Refill Hematology Oncology at Eugenia Morrow RN Breast cancer (Primary [facility] Dx) [address] [place] [phone] Social History Tobacco Use Types Packs/Day Years Used Date Never Smoker Smokeless Tobacco: Never Used Alcohol Use Standard Drinks/Week Comments Yes 21 (1 standard drink = 0.6 oz pure alcoh ol) Sex Assigned at Date Recorded Female 03/31/2021 3:33 PM EDT documented as of this encounter Miscellaneous Notes Telephone Encounter - Eugenia Morrow RN - 05/16/2012 12:13 PM EDT Started aromatase inhibitor 03/2011 post radiation therapy. Plan is AI for 5 years. documented in this encounter Plan of Treatment Not on filedocumented as of this encounter Visit Diagnoses Diagnosis Breast cancer - Primary Malignant neoplasm of breast (female), u nspecified site documented in this encounter Care Teams Weight Calculator Relationship Specialty Start Date End Date Javi Izaguirre DO PCP - General 06/22/10 [address] [place] [address] documented as of this encounter
--- OUTSIDE RECORDS SUMMARY | 2022-04-22 01:45 | XMS_ITS | Encounter Summary ---
:1945 Author Organization [facility] [place] [address] Care Team Providers Name Role Phone Javi Izaguirre DO Primary Care Provider Encounter Details Date Type Department Care Team Description 12/09/2011 Hospital Encounter XRay at [facility] S/P TKR (total knee [address] [place] [address] replacement) [place] [address] Social History Tobacco Use Types Packs/Day [...] nts XR KNEE AP AND LAT Routine 12/09/2011 1:54 PM S/P TKR (total k nee Results for this BILAT EDT replacement) procedure are i n the results section. [...] means documented in this encounter Care Teams Oak Tanner Relationship Specialty Start Date End Date Javi Izaguirre DO PCP - General 06/22/[address] [place] [address] documented as of this encounter
--- OUTSIDE RECORDS SUMMARY | 2022-04-22 01:45 | XMS_ITS | Encounter Summary ---
:1945 Author Organization [facility] [place] [address] Care Team Providers Name Role Phone Dmitriy Javi BURKS Primary Care Provider Reason for Visit Reason Comments Radiation Treatment Encounter Details Date Type Department Care Team Description 03/08/2011 Follow-Up Radiation Oncology at Lucie Lord MD Breast ca (Primary Dx) [place] [address] [place], [place] RADIATION ONCOL OGY [address] [place] [address] [phone] (Wo rk) Social History Tobacco Use Types Packs/Day Years Used Date Never Smoker Sex Assigned at Date Recorded Female 03/31/2021 3:33 PM EDT documented as of this encounter Last Filed Vital Signs Vital Sign Reading Time Taken Comments Blood Pressure 125/75 03/08/2011 10:31 AM EDT Pulse 66 03/08/2011 10:31 AM EDT Temperature 36.7 ??C (98.1 ??F) 03/08/2011 10:31 AM EDT Respiratory Rate 16 03/08/2011 10:31 AM EDT Oxygen Saturation 97% 03/08/2011 10:31 AM EDT Inhaled Oxygen Concentration - - Weight 73.3 kg (161 lb 8 oz) 03/08/2011 10:31 AM EDT Height - - Body Mass Index 28.44 02/24/2011 12:50 PM EDT documented in this encounter Progress Notes Jeanine Lord MD - 03/08/2011 11:18 AM EDT DIAGNOSIS: Breast, L, IDC, low gr, ERPR+, [id number]-, stage IIA, pT1C pN1mi, s/p partial mastectomy & SNB followed by reexcision & then chemo. CURRENT TREATMENT DOSE: 1.8 Gy to L breast & axilla ANTICIPATED TOTAL DOSE: 45 Gy to L breast & axilla followed by boost of 16 Gy to seroma cav Current # of xrt received: 1 Anticipated total # of xrt txs: 33 Evaluation of port verification films: ok Changes in Medical Condition: None. Has a med for her eyes, which she will bring in. Physical Exam: A&Ox3, in NAD. Response to xrt: As expected. Radiation Related Symptoms: None. Treatment for Symptom Control: Brent's cream. Recommendation on Continuing Course of Tx: Cont. She will bring in med for her eyes. documented in this encounter Plan of Treatment Not on filedocumented as of this encounter Visit Diagnoses Diagnosis Breast CA - Primary Malignant neoplasm of breast (female), u nspecified site documented in this encounter Care Teams Trade Union Secretary Relationship Specialty Start Date End Date Javi Izaguirre DO PCP - General 06/22/[address] [place] [address] documented as of this encounter
--- OUTSIDE RECORDS SUMMARY | 2022-04-22 01:45 | XMS_ITS | Encounter Summary ---
:1945 Author Organization [facility] [place] [address] Care Team Providers Name Role Phone Dmitriy Javi BURKS Primary Care Provider Reason for Visit Reason Comments Radiation Treatment Encounter Details Date Type Department Care Team Description 04/19/2011 Follow-Up Radiation Oncology at Lucie Lord MD Breast ca (Primary Dx) [place] [address] [place], [place] RADIATION ONCOL OGY [address] [place] [address] [phone] (Wo rk) Social History Tobacco Use Types Packs/Day Years Used Date Never Smoker Sex Assigned at Date Recorded Female 03/31/2021 3:33 PM EDT documented as of this encounter Last Filed Vital Signs Vital Sign Reading Time Taken Comments Blood Pressure 140/75 04/19/2011 10:14 AM EDT Pulse 58 04/19/2011 10:14 AM EDT Temperature 37 ??C (98.6 ??F) 04/19/2011 10:14 AM EDT Respiratory Rate 18 04/19/2011 10:14 AM EDT Oxygen Saturation 98% 04/19/2011 10:14 AM EDT Inhaled Oxygen Concentration - - Weight 73 kg (161 lb) 04/19/2011 10:14 AM EDT Height - - Body Mass Index 28.35 04/14/2011 11:04 AM EDT documented in this encounter Progress Notes Jeanine Lord MD - 04/19/2011 10:56 AM EDT DIAGNOSIS: Breast, L, IDC, low gr, ERPR+, [id number]-, stage IIA, pT1c pN1mi, s/p partial mastectomy & SNB followed by reexcision & then chemo. CURRENT TREATMENT DOSE: 55 Gy ANTICIPATED TOTAL DOSE: 61 Gy Current # of xrt received: 30 Anticipated total # of xrt txs: 33 Evaluation of port verification films: ok Changes in Medical Condition: Itching in upper quads L breast, helped somewhat by brent's, but has become more noticeable. No pain. Energy level improving. Physical Exam: A&Ox3, in NAD. Mild erythema of skin in tx'd area, most pronounced laterally. No obvious folliculitis. Response to xrt: As expected. Radiation Related Symptoms: Skin rxn, tiredness. Treatment for Symptom Control: Given 1% hydrocortisone cream today for itchiness. Brent's cream. Recommendation on Continuing Course of Tx: Cont. Completes 04/22. Saw Dr. Cuevas last wk, & femara to start 04/23. FU 06/06. documented in this encounter Plan of Treatment Not on filedocumented as of this encounter Visit Diagnoses Diagnosis Breast CA - Primary Malignant neoplasm of breast (female), u nspecified site documented in this encounter Care Teams Commissioner Of Conciliation Relationship Specialty Start Date End Date Javi Izaguirre DO PCP - General 06/22/[address] [place] [address] documented as of this encounter
--- OUTSIDE RECORDS SUMMARY | 2022-04-22 01:45 | XMS_ITS | Encounter Summary ---
:1945 Author Organization [facility] [place] [address] Care Team Providers Name Role Phone DmitriyJavi agrawal Primary Care Provider Reason for Visit Reason Onset Date Comments Other 06/07/2011 Encounter Details Date Type Department Care Team Description 06/07/2011 Telephone Orthopaedics at [facility] Shilpi Chanel, Other [facility] [place] [address] [facility] [phone] ORTHOPAEDIC SURG [place], [place] [address] (Wo rk) Social History Tobacco Use Types Packs/Day Years Used Date Never Smoker Sex Assigned at Date Recorded Female 03/31/2021 3:33 PM EDT documented as of this encounter Miscellaneous Notes Telephone Encounter - Alejandra Beckman RN - 06/07/2011 4:05 PM EST Sofía Called she is now ready for the CT of her lower extremity which was ordered last sping but cancelled due to chemo therapy. The CT order has been placed and will be given to the certified legal secretary specialist to schedule. Shilpi would like to see her after the CT results are in. documented in this encounter Plan of Treatment Not on filedocumented as of this encounter Visit Diagnoses Diagnosis S/P TKR (total knee replacement) Knee joint replacement by other means Right knee pain Pain in joint, lower leg documented in this encounter Care Teams Travel Services Professional Relationship Specialty Start Date End Date Javi Izaguirre DO PCP - General 06/22/[address] [place] [address] documented as of this encounter
--- OUTSIDE RECORDS SUMMARY | 2022-04-22 01:45 | XMS_ITS | Encounter Summary ---
:1945 Author Organization [facility] Address [address] [facility] [address] [place] [address] Care Team Providers Name Role Phone Javi Izaguirre DO Primary Care Provider Reason for Visit Reason Comments Right Knee Pain S/P R TKA OUTSIDE Encounter Details Date Type Department Care Team Description 06/04/2012 Office Visit Orthopaedics at [facility] [place] Lau, Right knee pain; [facility] S/P Right total knee arthroplasty; [address] [place] [address] [phone] [place] [address] Social History Tobacco Use Types Packs/Day Years Used Date Never Smoker Smokeless Tobacco: Never Used Alcohol Use Standard Drinks/Week Comments Yes 21 (1 standard drink = 0.6 oz pure alcoh ol) Sex Assigned at Date Recorded Female 03/31/2021 3:33 PM EDT documented as of this encounter Last Filed Vital Signs Vital Sign Reading Time Taken Comments Blood Pressure 128/82 06/04/2012 1:48 PM EST Pulse 72 06/04/2012 1:48 PM EST Temperature - - Respiratory Rate - - Oxygen Saturation - - Inhaled Oxygen Concentration - - Weight 71.7 kg (158 lb) 06/04/2012 1:48 PM EST Height 165.1 cm (5' 5) 06/04/2012 1:48 PM EST Body Mass Index 26.29 06/04/2012 1:48 PM EST documented in this encounter Progress Notes Tina Walsh PA - 06/11/2012 9:34 AM EST PATIENT NAME: Sofía Mcdonald AGE: 66 y.o. MR#: [id number] DATE OF VISIT: 06/04/2012 CHIEF COMPLAINT: Status post bilateral total knee arthroplasties, Right TKA (1996) at outside hospital, Left TKA (2004) by Dr. Lau. HISTORY OF PRESENT ILLNESS: Ms. Mcdonald is a very pleasant 66-year-old here today infollowup for bilateral knees. Her left knee, the side that Dr. Lau did in 2006, continues to do extraordinarily well.She continues to be without pain and it is not limiting her. The right knee continues to have pain, but is doing ok. There was some concern for lucency on x-ray at a visit about 16 months ago. Also, she underwent a CT scan in 05/2011, which did show a lucency in the medial femoral condyle without gross loosening. Unfortunately, she was undergoing treatment for breast cancer, which has been successful, and she has started to recover more fully regarding her energy levels and activity. The right knee does ache at night at times if she does too much. She has occasional pops and clicks,but no giving out or locking. It is still somewhat hard to bend the right knee as far, putting on socks and shoes is difficult, stairs are hard at times. Pain is about a 4-5/10. She was diagnosed with spinal stenosis just prior to her last visit here and worked with PT for this. She has had good improvement of her symptoms, no big issues with right hip at this time. Able to walk without a cane or walker. She has been able to return to short hikes in the [place], but longer walks are hard due to uneven ground. ROS: Denies fevers or chills, no recent illnesses. Does have hot flashes secondary to Femara for snf breast cancer treatment. 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 PHYSICAL EXAMINATION: A well-nourished, well-developed 66-year-old, in no acute distress. Alert and oriented x3 with a pleasant affect. Able to stand with mild antalgia. Inspection: Incisions over bilateral knees well healed. No erythema, warmth, effusion, or ecchymosis. Palpation: Bilateral knees non-tender, both patella mobile without crepitus. I have made the following determinations: Post Op Left Knee Exam: Gait Abnormality: Antalgic- mildly favoring right leg Knee ROM: Extension:0 Flexion: 130 Alignment: 0-4 degrees Neutral Stability: A/P Translation <5mm Varus (lateral stability) <5mm Valgus (medial stability) <5mm Extension La degrees or less Patella Tracking: Normal Pulses Palpable: Left PT:Yes Left DP:Yes Motor/Sensory: Distal Motor: Normal Distal Sensory: Normal except for decreased sensation over bottoms of feet secondary to chemo Quadriceps Strength:5 I have made the following determinations: Post Op Right Knee Exam: Gait Abnormality: Antalgic Knee ROM: Extension:0 Flexion: 115 Alignment: 0-4 degrees Neutral Stability: A/P Translation <5mm. Varus (lateral stability)<5mm (4-5 mm laxity) Valgus (medial stability) <5mm (3-4 mm laxity) Extension La degrees or less Patella Tracking: Normal Pulses Palpable: Right PT: Yes Right DP:Yes Motor/Sensory: Distal Motor: Normal Distal Sensory: Normal except for decreased sensation over bottoms of feet secondary to chemo Quadriceps Strength: 5 RADIOLOGY: 06/04/2012- AP and lat of bilateral knees Left knee shows arthroplasty components in good position without signs of change or loosening. No fractures noted. Right knee with arthroplasty components in unchanged position. There continues to be some small amount of lucency around the lateral tibial screws but this is unchanged from films 6 months ago. No signs of gross loosening. ASSESSMENT: 6 years S/P Left TKA (2005-Dr. Lau) doing very well. 17 years S/P Right [place]1994[place] with some lucency suggestive of loosening. PLAN: This patient was also seen and examined by Dr. Lau who agrees with the following plan. We reviewed her findings and x-rays at length with her today. Her left knee is doing very well and has no issues. We will follow up with her left knee in 2 years with new x-rays. Regarding her right knee, at this point, while there are some findings on x-ray and CT scan suggestive of osteolysis, there continues to be no gross loosening in the right knee. We discussed the options for her right knee- we will need detailed operative records from her right TKA to determine if we can still get components for a knee revision. We will have her sign a record release today and contacther previous orthopedist in [place], [place]. Her physician was Dr. Hoffman and her surgery was done at [facility]. We also discussed watchful waiting. For now, she would like topursue gentle skiing this winter and consider a revision of her knee in the spring possibly. We will plan on following up with her once we know if we can get implants for a knee revision on theright. She will contact us after the holidays to schedule a follow up appointment. Also, she was given a prescription for a hinged neoprene brace for her right knee to use when skiing to give her more stability. QUITA NASH 06/04/2012 documented in this encounter Plan of Treatment Not on filedocumented as of this encounter Visit Diagnoses Diagnosis Right knee pain Pain in joint, lower leg S/P Right total knee arthroplasty Knee joint replacement by other means S/P knee replacement Knee joint replacement by other means documented in this encounter Care Teams Ski Instructor Relationship Specialty Start Date End Date Javi Izaguirre DO PCP - General 06/22/[address] [place] [address] documented as of this encounter
--- OUTSIDE RECORDS SUMMARY | 2022-04-22 01:45 | XMS_ITS | Encounter Summary ---
:1945 Author Organization [facility] [place] [address] Care Team Providers Name Role Phone Javi Izaguirre DO Primary Care Provider Reason for Visit Reason Comments Research Encounter Details Date Type Department Care Team Description 03/31/2011 Office Visit [facility] [address] [facility] RADIATION ONCOLOGY [facility] [id number] [phone] Social History Tobacco Use Types Packs/Day Years Used Date Never Smoker Sex Assigned at Date Recorded Female 03/31/2021 3:33 PM EDT documented as of this encounter Progress Notes Cyndie Hickman APRN - 03/31/2011 9:49 AM EDT Subjective: Patient ID: Sofía Mcdonald is a 65 y.o. female HPI DIAGNOSIS: Breast, L, IDC, low gr, ERPR+, [id number]-, stage IIA, pT1c pN1mi, s/p partial mastectomy & SNB followed by reexcision & then chemo. Review of Systems Unable to perform ROS N/A Objective: Physical Exam N/A Assessment and Plan: Mrs Mcdonald is a participant in the [employer] afshan for cancer survivor care plans. I met with her today to review her care plan. documented in this encounter Plan of Treatment Not on filedocumented as of this encounter Visit Diagnoses Not on filedocumented in this encounter Care Teams Media Clerk Relationship Specialty Start Date End Date Javi Izaguirre DO PCP - General 06/22/10 [facility] [address] [place] [address] documented as of this encounter
--- OUTSIDE RECORDS SUMMARY | 2022-04-22 01:45 | XMS_ITS | Encounter Summary ---
:1945 Author Organization [facility] [place] [address] Care Team Providers Name Role Phone Dmitriy Javi BURKS Primary Care Provider Reason for Visit Reason Comments Radiation Treatment Encounter Details Date Type Department Care Team Description 03/15/2011 Follow-Up Radiation Oncology at Lucie Lord MD Breast ca (Primary Dx) [place] [address] [place], [place] RADIATION ONCOL OGY [address] [place] [address] [phone] (Wo rk) Social History Tobacco Use Types Packs/Day Years Used Date Never Smoker Sex Assigned at Date Recorded Female 03/31/2021 3:33 PM EDT documented as of this encounter Last Filed Vital Signs Vital Sign Reading Time Taken Comments Blood Pressure 142/77 03/15/2011 10:30 AM EDT Pulse 67 03/15/2011 10:30 AM EDT Temperature 36.7 ??C (98.1 ??F) 03/15/2011 10:30 AM EDT Respiratory Rate 16 03/15/2011 10:30 AM EDT Oxygen Saturation 97% 03/15/2011 10:30 AM EDT Inhaled Oxygen Concentration - - Weight 73 kg (161 lb) 03/15/2011 10:30 AM EDT Height - - Body Mass Index 28.35 02/24/2011 12:50 PM EDT documented in this encounter Progress Notes Jeanine Lord MD - 03/15/2011 11:09 AM EDT DIAGNOSIS: Breast, L, IDC, low gr, ERPR+, [id number]-, stage IIA, pT1c pN1mi, s/p partial mastectomy & SNB followed by reexcision & then chemo. CURRENT TREATMENT DOSE: 10.8 Gy ANTICIPATED TOTAL DOSE: 61 Gy Current # of xrt received: 6 Anticipated total # of xrt txs: 33 Evaluation of port verification films: ok Changes in Medical Condition: Skin in tx'd area ok; no soreness/itchiness. Has had some fatigue, less than 1 mo ago. Physical Exam: A&Ox3, in NAD. No erythema of skin in tx'd area. Response to xrt: As expected. Radiation Related Symptoms: None. Treatment for Symptom Control: Brent's. Recommendation on Continuing Course of Tx: Cont. documented in this encounter Plan of Treatment Not on filedocumented as of this encounter Visit Diagnoses Diagnosis Breast CA - Primary Malignant neoplasm of breast (female), u nspecified site documented in this encounter Care Teams Bridge Inspector Relationship Specialty Start Date End Date Javi Izaguirre DO PCP - General 06/22/[address] [place] [address] documented as of this encounter
--- OUTSIDE RECORDS SUMMARY | 2022-04-22 01:45 | XMS_ITS | Encounter Summary ---
:1945 Author Organization [facility] [place] [address] Care Team Providers Name Role Phone Javi Izaguirre DO Primary Care Provider Encounter Details Date Type Department Care Team Description 12/09/2011 Hospital Encounter XRay at [facility] Right hip pain [address] [facility] [place] [address] Social History Tobacco Use Types Packs/Day [...] Associated Diagnosis Comme nts XR PELVIS AND Routine 12/09/2011 1:54 PM Results for this LATERAL HIP EDT procedure are i n the results section. documented in this encounter Results XR PELVIS AND LATERAL HIP (12/09/2011 1:54 PM EDT) Anatomical Region Laterality Modality Pelvis, Hip N/A Radiographic Imaging Specimen (Source) Anatomical Collection Method Collection Time Re ceived Time Location / / Volume Laterality 12/09/2011 1:54 PM EDT Addenda Addendum on 12/21/2011 5:47 PM EDT Addendum Begins IMPRESSION #1 should read: Osteoarthropa thy of both hips with slightly more narrowed right hip joint space. Addendum Ends Addendum on 12/21/2011 3:39 PM EDT Addendum Begins IMPRESSION #1 should read: Osteoarthropa thy of both hips with slightly more narrowed right hip joint space. Addendum Ends Narrative 12/09/2011 4:14 PM EDT Examination PELVIS+LATERAL HIP/RIGHT Clinical History Reason for exam and clinical history: RT HIP OA; Comparison None Findings Osteoarthropathy of both hips with promi nent right hip femoral head osteophytes and joint space narrowing. The right hip joint space is more narrowed than the left. There is chondrocalcinosis in the left hip. ?? Impression ? 1. Osteoarthropathy of both hips with slightly more narrowed right knee joint space. ? 2. Chondrocalcinosis. Procedure Note Breanne Chavez MD - 12/21/2011Formatt ing of this note might be different from the original. Examination PELVIS+LATERAL HIP/RIGHT Clinical History Reason for exam and clinical history: RT HIP OA; Comparison None Findings Osteoarthropathy of both hips with promi nent right hip femoral head osteophytes and joint space narrowing. The right hip joint space is more narrowed than the left. There is chondrocalcinosis in the left hip. Impression 1. Osteoarthropathy of both hips with s lightly more narrowed right knee joint space. 2. Chondrocalcinosis. Ellis Lau MD IMG DX ORDERABLES documented in this encounter Visit Diagnoses Diagnosis Right hip pain Pain in joint, pelvic region and thigh documented in this encounter Care Teams Janitor Helper Relationship Specialty Start Date End Date Javi Izaguirre DO PCP - General 06/22/[address] [place] [address] documented as of this encounter
--- OUTSIDE RECORDS SUMMARY | 2022-04-22 01:46 | XMS_ITS | Encounter Summary ---
:1945 Author Organization [facility] [place] [address] Care Team Providers Name Role Phone Javi Izaguirre DO Primary Care Provider Encounter Details Date Type Department Care Team Description 07/21/2010 Follow-Up Hematology and Oncol ogy at [facility] Lilian [place] [address] Social History Tobacco Use Types Packs/Day Years Used Date Never Assessed Sex Assigned at Date Recorded Female 03/31/2021 3:33 PM EDT documented as of this encounter Plan of Treatment Not on filedocumented as of this encounter Visit Diagnoses Not on filedocumented in this encounter Care Teams Attic Fans Mechanic Relationship Specialty Start Date End Date Javi Izaguirre DO PCP - General 06/22/[address] [place] [address] documented as of this encounter
--- OUTSIDE RECORDS SUMMARY | 2022-04-22 01:46 | XMS_ITS | Encounter Summary ---
:1945 [place] [address] Care Team Providers Name Role Phone Javi Izaguirre DO Primary Care Provider Encounter Details Date Type Department Care Team Description 08/26/2010 Hospital Encounter Same Day Program at Angelo Rolle on L, [facility] [address] [place] [address] [place] [address] [phone] (Wo rk) Social History Tobacco Use Types Packs/Day Years Used Date Never Assessed Sex Assigned at Date Recorded Female 03/31/2021 3:33 PM EDT documented as of this encounter Plan of Treatment Not on filedocumented as of this encounter Procedures Procedure Name Priority Date/Time Associated Diagnosis Comme nts SURGICAL PATHOLOGY Routine 08/26/2010 8:24 AM Res ults for this REPORT EST procedure are i n the results section. documented in this encounter Results PATHOLOGY SURGICAL PATHOLOGY FINAL REPORT (08/26/2010 8:24 AM EST) Component Value Ref Test Analysis Performed At [facility] Range Method Time Signature Surgical CERNER Pathology ? [facility] Report ? Provider: ?? MEHUL ROLLE Pt. Name: ?? MACI SOFÍA Blevins ? Acc #: ?[id number] ?Pt. MRN: ?[id number] ? Col Date: ?? 1 ? /Sex: ?1945,(64 years),Female ? Rec Date: ?? 08/26/2010 ? LOC: ?SDP ? SURGICAL PATHOLOGY ? ---Pathologic Diagnosis--- ? Specimen: ? Breast, left, partial mastectomy re-excision, ? new caudal margin . ? Specimen Size: ?11.6 x 2.7 x 1.8 cm. ? Residual malignancy: ?Atypical cauterized glands - see comment ? Invasive Carcinoma: ? Not identified. ? Prior Bx's correlation: [id number] (excision) ? Other findings: ? 1 - Lobular carcinoma i n-situ present in ? 13 of 30 sl ides. ? 2 - Atypical ductal hyperplasia in slide A10, ? aclerosing adenosis. ? 3 - Healing biops y site. ? CR-0 ? 08/27/10 ? [facility] ? 08/31/10 Verified by: ? Black DO, Melony C. ? Pathologist ? (Electronic Si gnature) ? The attending pathologist whose signature appears o n this report has ? reviewed all diagnostic slides and has edited the joseph ss and/or ? microscopic portion of the report in rendering the fi nal pathologic ? diagnosis. ? ---Comment--- ? At the cauterized edg e along the healing surgical site, atypical cauterized ? glands are present in slide A12. ??This may represe nt residual DCIS, ? hyperplasia or LCIS. Step sections were performed. ??It is not possible to ? further interpret these cells. ? ---Microscopic Description--- ? Slides reviewed, microscopic description not recorded . ? ---Gross Description--- ? Labeled/Fixative: ? Left breast partial mastectomy re-excision, stitch ? millan new caudal mar gin; fresh. ? Qty/Size/Weight: ?Single, 11.6 x 2.7 x 1.8 cm. ? Tissue Description: ?? A long section of fibrofatty breast tissue with ? stitch on one surface and pink, focally hemorrhagic ? granulation tissue on the opposite surface sandie esponding to prior re- ? excision site. ? Sections/Processing: ??The new caudal margin is inked green over the entire ? [facility] ? Provider: ?? MEHUL ROLLE Pt. Name: ?? SOFÍA LUX ? Acc #: ?[id number] ?Pt. MRN: ?[id number] ? Col Date: ?? 08/26/201 1 ? /Sex: ?1945,(64 years),Female ? Rec Date: ?? 08/26/2010 ? LOC: ?SDP ? SURGICAL PATHOLOGY ? surface. ??The specimen is serially sectioned ? perpendicular to its long axis. ??(21- 24) contain ? bisected slices. ??( T30) ??aje/BTP ? ---Clinical Information--- ? Specimen Submitted: ? A - Left breast parti al mast re - excision stitch consuelo new caudal margin, ? left breast ? Clinical History: ? Left breast partial m astectomy, re-excision, stitch will consuelo new caudal ? margin ? Clinical Diagnosis: ? Breast cancer Specimen (Source) Anatomical Collection Method Collection Time Re ceived Time Location / / Volume Laterality 08/26/2010 8:24 AM EST Mehul Rolle MD PATHOLOGY/CYTOLOGY ORDERABLE S Performing Organization Address City/State/ZIP [place] [address] [facility] documented in this encounter Visit Diagnoses Not on filedocumented in this encounter Active and Recently Administered Medications Care Teams Brake Coupler Dinkey Relationship Specialty Start Date End Date Javi Izaguirre DO PCP - General 06/22/[address] [place] [address] documented as of this encounter
--- OUTSIDE RECORDS SUMMARY | 2022-04-22 01:46 | XMS_ITS | Encounter Summary ---
:1945 Author Organization [facility] [place] [address] Care Team Providers Name Role Phone Javi Izaguirre DO Primary Care Provider Reason for Visit Reason Comments Chemotherapy Taxol Encounter Details Date Type Department Care Team Description 01/27/2011 Office Visit [facility] ncer of breast (Primary Dx); [facility] Malignant neoplasm of breast (female), unspecified site [address] [place] [address] Social History Tobacco Use Types Packs/Day Years Used Date Never Smoker Sex Assigned at Date Recorded Female 03/31/2021 3:33 PM EDT documented as of this encounter Progress Notes Chel Ricci RN - 01/27/2011 3:47 PM EDT TIME TREATMENT STARTED: 1230 TIME TREATMENT ENDED: 1530 Sofía Mcdonald, 65 y.o. female with diagnosis of Breast Ca is here for chemotherapy infusion of Taxol. PROTOCOL: NO CYCLE: 11 S: Pt. offers no complaints. O: Chemotherapy orders independently verified for drug name, route and dosage per patient's height, weight and BSA by Daniel Ricci RN and Shayan Arevalo RN. REACTIONS (DESCRIPTION, TIME, INTERVENTION AND EFFECTIVENESS) NO A: Pt. Tolerated treatment well. Sofía Mcdonald confirms that all questions and issues have been addressed. P: Return to clinic as scheduled. documented in this encounter Plan of Treatment [...] Rate Site dexamethasone sodium (PF) 10 Given 01/27/2011 1:15 PM EDT 236 mL/hr mg, ondansetron (ZOFRAN) 16 mg in sodium chloride 0.9% 59 mL IVPB Intravenous, at 236 mL/hr, ONCE, On Delaney 01/27/11 at 1300, 1 dose famotidine (PEPCID) 20 mg, diphenhydrAMINE Given 01/27/2011 1:00 PM EDT 210 mL/hr (BENADRYL) 25 mg in sodium chloride 0.9% 52.5 mL IVPB Intravenous, at 210 mL/hr, ONCE, On Delaney 01/27/11 at 1300, 1 dose paclitaxel (TAXOL) 143 mg in New Bag 01/27/2011 2:06 PM EDT 143 mg 273.8 mL/hr dextrose 5% Non-PVC 273.8333 mL chemo infusion 143 mg, Intravenous, ONCE, 1 dose, On Delaney 01/27/11 at 1300, Administer over 1 Hours documented in this encounter Care Teams Aircraft Structural Repairer Relationship Specialty Start Date End Date Javi Izaguirre DO PCP - General 06/22/[address] [place] [address] documented as of this encounter
--- OUTSIDE RECORDS SUMMARY | 2022-04-22 01:46 | XMS_ITS | Encounter Summary ---
:1945 Author Organization [place] [address] Care Team Providers Name Role Phone Javi Izaguirre DO Primary Care Provider Encounter Details Date Type Department Care Team Description 08/09/2010 Hospital Encounter Same Day Program at Angelo Rolle on L, [facility] [address] [place] [address] [place] [address] [phone] (Wo rk) Social History Tobacco Use Types Packs/Day Years Used Date Never Assessed Sex Assigned at Date Recorded Female 03/31/2021 3:33 PM EDT documented as of this encounter Plan of Treatment Not on filedocumented as of this encounter Procedures Procedure Name Priority Date/Time Associated Diagnosis Comme nts LAB SCAN 06/16/2014 12:00 AM EST MOLECULAR GENETICS Routine 08/09/2010 1:02 PM Res ults for this REPORT EST procedure are i n the results section. PATHOLOGY ADDENDUM Routine 08/09/2010 1:02 PM Res ults for this REPORT EST procedure are i n the results section. PATHOLOGY ADDENDUM Routine 08/09/2010 1:02 PM Res ults for this REPORT EST procedure are i n the results section. documented in this encounter Results SCAN DOC: LAB (06/16/2014 12:00 AM EST) Narrative This result has an attachment that is no t available. Scanning Provider MEDIA MGR SCAN EXT ORDR/RSLT PATHOLOGY ADDENDUM REPORT (08/09/2010 1:02 PM EST) [facility] Method Time Signature Addendum CERN[facility] Report ? [facility] ? Provider: ?? MEHUL ROLLE Pt. Name: ?? SOFÍA LUX ? Acc #: ?[id number] ?Pt. MRN: ?[id number] ? Col Date: ?? 1 ? /Sex: ?1945,(64 years),Female ? Rec Date: ?? 08/09/2010 ? LOC: ?SDP ? ADDENDUM REPORT ? ---Addendum Discussion--- ? At the time of examin ation of re-excision specimen [id number], slide B8 of ? [id number] is re-exami jena. ??A larger size of the primary tumor is measured. ? The original report h as been corrected. ??dThe correction is made due to ? including the extensive scarring (which was mechelle ginally not counted as ? overall tumor dimension) is now c ounted since it is noted that invasive ? tumor is present on either side of the scar. ? This would correlate better with the original radiogr aph. ? 08/31/10 ? VMS ? 08/31/10 Verified by: ? Black DO, Melony C. ? Pathologist ? (Electronic Si gnature) ? The attending pathologist whose signature appears o n this report has ? reviewed all diagnostic slides and has edited the joseph ss and/or ? microscopic portion of the report in rendering the fi nal pathologic ? diagnosis. Specimen (Source) Anatomical Collection Method Collection Time Re ceived Time Location / / Volume Laterality 08/09/2010 1:02 PM EST Mehul Rolle MD PATHOLOGY/CYTOLOGY ORDERABLE S Performing Organization Address City/State/ZIP Code Phon e Number [place] [id number] [facility] PATHOLOGY MOLECULAR GENETICS REPORT (08/09/2010 1:02 PM EST) Component Value Ref Test Analysis Performed At [facility] Range Method Time Signature Molecular [facility] Report ? [facility] ? Provider: ?? MEHUL ROLLE Pt. Name: ?? SOFÍA LUX ? Acc #: ?[id number] ?Pt. MRN: ?[id number] ? Col Date: ?? 1 ? /Sex: ?1945,(64 years),Female ? Rec Date: ?? 08/09/2010 ? LOC: ?SDP ? MOLECULAR GENETIC STUDIES ? ---REPORT OF DNA ANALYSIS--- ? TEST: ??HER2 FISH, BREAST CANCER ? METHOD: ??Fluorescence in situ hybridization (FISH) w ith probe for ? chromosome 17 centrom ere (17p11.1-q11.1) and locus specific probe for the ? HER2 gene locus (17q11.2-q12). ? SAMPLE ANALYZED: B8-06 ? RESULT: ?NEGATIVE FOR HER2/LOI AMPLIFICATION ?TOTA L # SIGNALS/TOTAL # NUCLEI COUNTED FOR HER2 PROBE = 86 ?TOTA L # SIGNALS/TOTAL # NUCLEI COUNTED FOR CEP-17 PROBE = 80 ?HER2 TO CEP-17 RATIO = 1.1 ? (NORMAL RANGE <1.8) ? Interpretation: ??Par affin-embedded tissue sections were submitted for HER2 ? gene amplification an alysis by FISH. ??Direct analysis was performed using ? the Mobeeysion Kit. ??Slide adequacy and signal enumeration were evaluated ? and satisfactory for both control and patient slides. ??The results of this ? analysis is based on the enumeration of 4 0 interphase nuclei from non- ? overlapping tumor castillo ls. ??A signal ratio derived from the HER2 probe and ? the CEP-17 centromere probe of >2.2 is considered positive for HER2 gene ? amplification. ? 2008 CAP guidelines s de león that samples with a HER2 to CEP-17 ratio of less ? than 1.8 are normal. Specimen with a HER2 to CEP-17 range of 1.8 to 2.2 are ? considered equivocal. Specimen with a HER2 to CEP-17 ratio of greater than ? 2.2 are considered amplified. ? This test is approved by the U.S.FDA for clinical alayna gnostic use. ? Reviewed by: ? Belia Scott MD ? Block Handler, Molecular Pathology ? _ ? Verified date: ??08/24/10 ??SFA ? Verified by: ?Jermaine DO, Melony Patton ? (Electronic Signature) Specimen (Source) Anatomical Collection Method Collection Time Re ceived Time Location / / Volume Laterality 08/09/2010 1:02 PM EST Mehul Rolle MD PATHOLOGY/CYTOLOGY ORDERABLE S Performing Organization Address City/State/ZIP Code Phon e Number [facility] [place] [address] [facility] PATHOLOGY ADDENDUM REPORT (08/09/2010 1:02 PM EST) Component Value Ref Test Analysis Performed At [facility] Range Method Time Signature Addendum [facility] Report ? [facility] ? Provider: ?? MEHUL ROLLE Pt. Name: ?? SOFÍA LUX ? Acc #: ?[id number] ?Pt. MRN: ?[id number] ? Col Date: ?? 1 ? /Sex: ?1945,(64 years),Female ? Rec Date: ?? 08/09/2010 ? LOC: ?SDP ? ADDENDUM REPORT ? ---Addendum Discussion--- ? At the request of Dr. Rolle, the greatest dimension of the tumor is re- ? examined. ? The greatest measure of the tumor on a single slide is 0.55 cm, slide B8, ? as indicated in the original report. ? Given that slides B7 through B11 come from a single tissue slice (tissue ? slice IV), reapproximating glass slide B8 with glass slide B9 gives an ? overall greatest dimension of 1.0 cm, assuming this i s the correct ? orientation of these two slides. ??These tumor foci are surrounded by ? hemorrhagic and scarr ed biopsy site. ??The gross measure overestimated the ? tumor size based on these biopsy site changes a nd the firmness of the ? surrounding fibrosis. ? If the tumor measures 1.0 cm in greatest microscopic measure, then the ? tumor stage of pT1b would be unchanged. ? 08/20/10 ? AJE ? 08/20/10 Verified by: ? Black DO, Melony C. ? Pathologist ? (Electronic Si gnature) ? The attending pathologist whose signature appears o n this report has ? reviewed all diagnostic slides and has edited the joseph ss and/or ? microscopic portion of the report in rendering the fi nal pathologic ? diagnosis. Specimen (Source) Anatomical Collection Method Collection Time Re ceived Time Location / / Volume Laterality 08/09/2010 1:02 PM EST Mehul Rolle MD PATHOLOGY/CYTOLOGY ORDERABLE S Performing Organization Address City/State/[place] [address] [facility] documented in this encounter Visit Diagnoses Not on filedocumented in this encounter Care Teams Radio Station Manager Relationship Specialty Start Date End Date Javi Izaguirre DO PCP - General 06/22/[address] [place] [address] documented as of this encounter
--- OUTSIDE RECORDS SUMMARY | 2022-04-22 01:46 | XMS_ITS | Encounter Summary ---
:1945 Author Organization [facility] [place] [address] Care Team Providers Name Role Phone Javi Izaguirre DO Primary Care Provider Encounter Details Date Type Department Care Team Description 09/30/2010 Follow-Up Hematology Oncology at [facility], Kiana E, VP RESEARCH [address] [place] [address] [place], [place] [phone] Social History Tobacco Use Types Packs/Day Years Used Date Never Assessed Sex Assigned at Date Recorded Female 03/31/2021 3:33 PM EDT documented as of this encounter Plan of Treatment Not on filedocumented as of this encounter Visit Diagnoses Not on filedocumented in this encounter Care Teams Flange Machine Operator Relationship Specialty Start Date End Date Javi Izaguirre DO PCP - General 06/22/[address] [place] [address] documented as of this encounter
--- OUTSIDE RECORDS SUMMARY | 2022-04-22 01:46 | XMS_ITS | Encounter Summary ---
:1945 Author Organization [facility] [place] [address] Care Team Providers Name Role Phone Dmitriy Javi BURKS Primary Care Provider Reason for Visit Reason Comments Chemotherapy Encounter Details Date Type Department Care Team Description 12/02/2010 Follow-Up Hematology Oncology at Antony Cuevas MD Breast cancer (Primary [address] Dx) [address] [place] [id number] [phone] Social History Tobacco Use Types Packs/Day Years Used Date Never Smoker Sex Assigned at Date Recorded Female 03/31/2021 3:33 PM EDT documented as of this encounter Last Filed Vital Signs Vital Sign Reading Time Taken Comments Blood Pressure 109/64 12/02/2010 9:06 AM EDT Pulse 69 12/02/2010 9:06 AM EDT Temperature 36.5 ??C (97.7 ??F) 12/02/2010 9:06 AM EDT Respiratory Rate 16 12/02/2010 9:06 AM EDT Oxygen Saturation 96% 12/02/2010 9:06 AM EDT Inhaled Oxygen Concentration - - Weight 71.7 kg (158 lb) 12/02/2010 9:06 AM EDT Height 160.5 cm (5' 3.19) 12/02/2010 9:06 AM EDT Body Mass Index 27.82 12/02/2010 9:06 AM EDT documented in this encounter Progress Notes Steve Cuevas MD - 12/02/2010 9:32 AM EDT DIAGNOSIS: Stage IIA (pT1c pN1 MX), IDC, low-grade, ER/MD positive, 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 SUBJECTIVE: Sofía comes in today for what is week two of Taxol chemotherapy and 12 planned weekly treatments. She is quite pleased that she had much less side effects with the Taxol than she has with the Adriamycin/Cytoxan she went through previously. Her appetite is better. She really reports no ill effects at all and actually feels better today than she did at the start of things last week. Review of systems otherwise negative. Past medical history and social history are reviewed and unchanged from when I saw her two weeks ago. Review of Systems Constitutional: Negative for fever, [...] dysuria and difficulty urinating. Musculoskeletal: Negative. Skin: Negative. Neurological: Negative. Hematological: Negative for adenopathy. Physical Exam Constitutional: She is oriented to person, place, and time. She appears well- developed and well-nourished. HENT: Head: Normocephalic and atraumatic. Eyes: Conjunctivae and EOM are normal. Pupils are equal, round, and reactive to light. Neck: Neck supple. No JVD present. No thyromegaly present. Cardiovascular: Normal rate, regular rhythm and normal heart sounds. Pulmonary/Chest: Effort normal and breath sounds normal. No respiratory distress. She has no wheezes. She has no rales. Abdominal: She exhibits no distension and no mass. There is no hepatosplenomegaly. No tenderness. She has no rebound and no guarding. LymphadenopathyShe has no cervical adenopathy. She has no axillary adenopathy. No inguinal adenopathy present. No supraclavicular adenopathy present. Neurological: She is alert and oriented to person, place, and time. No cranial nerve deficit. Coordination normal. Skin: Skin is warm and dry. No rash noted. : Laboratory is reviewed. Her CBC today shows a white count of 4.09, neutrophil count of 3.1, hemoglobin 11.5, platelet count of 410,000. CMP is normal with normal liver tests and a creatinine of 0.6. ASSESSMENT: The patient is tolerating her taxane chemotherapy exceptionally well. Her counts are fine today for treatment. She is not having any neuropathy symptoms. PLAN: We will go ahead with today's chemotherapy. We will see her back in a week with a CBC and CMP and plan on week three of treatment at that time if counts allow. documented in this encounter Procedure Notes Provider, Scanning - 12/02/2010 1:57 PM EDTAssociated Order(s): SCAN DOC: LAB documented in this encounter Plan of Treatment Not on filedocumented as of this encounter Procedures Procedure Name Priority Date/Time Associated Diagnosis Comme nts LAB SCAN 12/02/2010 1:57 PM Results f or this EDT procedure are i n the results section . documented in this encounter Results SCAN DOC: LAB (12/02/2010 1:57 PM EDT) Narrative 12/02/2010 1:57 PM EDT Procedure Note Provider, Scanning - 12/02/2010 1:57 PM EDT Scanning Provider MEDIA MGR SCAN EXT ORDR/RSLT documented in this encounter Visit Diagnoses Diagnosis Breast cancer - Primary Malignant neoplasm of breast (female), u nspecified site documented in this encounter Care Teams Security Researcher Relationship Specialty Start Date End Date Javi Izaguirre DO PCP - General 06/22/[address] [place] [address] documented as of this encounter
--- OUTSIDE RECORDS SUMMARY | 2022-04-22 01:46 | XMS_ITS | Encounter Summary ---
:1945 Author Organization [facility] [place] [address] Care Team Providers Name Role Phone Javi Izaguirre DO Primary Care Provider Reason for Visit Reason Comments Breast Cancer renewal for chanaodedagoberto Encounter Details Date Type Department Care Team Description 12/30/2010 Refill Hematology Oncology at Antony Cuevas MD Breast cancer (Primary [address] Dx) [address] [place] [phone] Social History Tobacco Use Types Packs/Day Years Used Date Never Smoker Sex Assigned at Date Recorded Female 03/31/2021 3:33 PM EDT documented as of this encounter Plan of Treatment Not on filedocumented as of this encounter Visit Diagnoses Diagnosis Breast cancer - Primary Malignant neoplasm of breast (female), u nspecified site documented in this encounter Care Teams User Support Analyst Relationship Specialty Start Date End Date Javi Izaguirre DO PCP - General 06/22/[address] [place], [place] [address] documented as of this encounter
--- OUTSIDE RECORDS SUMMARY | 2022-04-22 01:46 | XMS_ITS | Encounter Summary ---
:1945 Author Organization [facility] [address] Care Team Providers Name Role Phone Javi Izaguirre DO Primary Care Provider Encounter Details Date Type Department Care Team Description 08/23/2010 Procedure visit [place] [address] Social History Tobacco Use Types Packs/Day Years Used Date Never Assessed Sex Assigned at Date Recorded Female 03/31/2021 3:33 PM EDT documented as of this encounter Plan of Treatment Not on filedocumented as of this encounter Visit Diagnoses Not on filedocumented in this encounter Care Teams Rig Manager Relationship Specialty Start Date End Date Javi Izaguirre DO PCP - General 06/22/[address] [place] [address] documented as of this encounter
--- OUTSIDE RECORDS SUMMARY | 2022-04-22 01:46 | XMS_ITS | Encounter Summary ---
:1945 Author Organization [facility] [place] [address] Care Team Providers Name Role Phone Javi Izaguirre DO Primary Care Provider Reason for Visit Reason Comments Chemotherapy Paclitaxel Day 1 Encounter Details Date Type Department Care Team Description 11/26/2010 Office Visit Hematology Oncology at [facility] HEM/ONC (Primary Dx) [address] [place] [address] Social History Tobacco Use Types Packs/Day Years Used Date Never Smoker Sex Assigned at Date Recorded Female 03/31/2021 3:33 PM EDT documented as of this encounter Last Filed Vital Signs Vital Sign Reading Time Taken Comments Blood Pressure - - Pulse - - Temperature - - Respiratory Rate - - Oxygen Saturation - - Inhaled Oxygen Concentration - - Weight 71.9 kg (158 lb 8.2 oz) 11/25/2010 2:51 PM EDT Height 161 cm (5' 3.39) 11/25/2010 2:51 PM EDT Body Mass Index 27.74 11/25/2010 2:51 PM EDT documented in this encounter Progress Notes Rosi Arevalo RN - 11/26/2010 6:00 PM EDT INFUSION THERAPY ADMINISTRATION NOTES TIME TREATMENT STARTED: 1445 TIME TREATMENT ENDED: 1650 DIAGNOSIS: Breast Ca PROTOCOL: None CYCLE #: 12 REASON FOR VISIT: Paclitaxel SUBJECTIVE Sofía offers no complaints. OBJECTIVE LAB DATA: 11/26/10 WBC 8.39 Hg 11.6 Hct 34.5 PLT 398 ANC 6.69 IV ACCESS: Mediport BLOOD RETURN: NO, previsously had a dye study at [facility] on 10/28/10 and cath tip was in SVC ANY S/S OF INFECTION/EXTRAVASATIONS: None IV FLUSHED WITH: 20ml Normal Saline and 500 units of heparin IV DISCONTINUED: yes HYDRATION, RATE, START TIME, STOP TIME NS @ KVO, 1445 ANTIEMETICS/PREMEDS, DOSE, ROUTE, START TIME, STOP TIME Bendaryl 25mg IV and Pepcid 20mg IV [id number] Dexamethasone 20mg IV and Zofran 16mg IV [id number] Pre administration: Chemotherapy orders independently verified for drug name, route, and dosage per patient's height, weight and BSA by Zoila Carlos RN and Rosi Arevalo RN.. At time of administration: Immediately prior to administration Rosi Arvealo RN and MARNIE Scherer independently verified the patient'sidentity using the patient's name and date of , and confirmed the drug name, dose, volume, route, expiration date/time and rate of administration delivered via IV pump. Consent for treatment verified in CIS. CHEMOTHERAPY, DOSE, ROUTE, START TIME, STOP TIME, Paclitaxel 143 mg IV [id number] REACTIONS (DESCRIPTION, TIME, INTERVENTION AND EFFECTIVENESS) none ASSESSMENT Sofía was awake, alert and he tolerated treatment well. PLAN Return to clinic per routine. Next week for cycle 2 of 12 documented in this encounter Procedure Notes Provider, Scanning - 11/26/2010 6:17 PM EDTAssociated Order(s): SCAN DOC: CHEMOTHERAPY documented in this encounter Plan of Treatment Not on filedocumented as of this encounter Procedures Procedure Name Priority Date/Time Associated Diagnosis Comme nts CHEMOTHERAPY SCAN 11/26/2010 6:17 PM Resu lts for this EDT procedure are i n the results section. documented in this encounter Results SCAN DOC: CHEMOTHERAPY (11/26/2010 6:17 PM EDT) Narrative 11/26/2010 6:17 PM EDT Procedure Note Provider, Scanning - 11/26/2010 6:17 PM EDT Scanning Provider MEDIA MGR SCAN EXT ORDR/RSLT documented in this encounter Visit Diagnoses Diagnosis Cancer of breast - Primary Malignant neoplasm of breast (female), u nspecified site documented in this encounter Administered Medications Inactive Administered Medications - up to 3 most recent administrations Medication Order MAR Action Action Date Dose Rate Site dexamethasone sodium (PF) 10 Given 11/26/2010 3:04 PM EDT 236 mL/hr mg, ondansetron (ZOFRAN) 16 mg in sodium chloride 0.9% 59 mL IVPB Intravenous, at 236 mL/hr, ONCE, On Mon11/26/10 at 1430, 1 dose famotidine (PEPCID) 20 mg, diphenhydrAMINE Given 11/26/2010 2:50 PM EDT 210 mL/hr (BENADRYL) 25 mg in sodium chloride 0.9% 52.5 mL IVPB Intravenous, at 210 mL/hr, ONCE, On Mon11/26/10 at 1430, 1 dose paclitaxel (TAXOL) 143 mg in dextrose New Bag 11/26/2010 3:30 PM EDT 143 mg mL/hr 5% Non-PVC 273.8333 mL chemo infusion 143 mg, Intravenous, ONCE, 1 dose, On Mon11/26/10 at 1430 documented in this encounter Care Teams Time Stamp Assembler Relationship Specialty Start Date End Date Javi Izaguirre DO PCP - General 06/22/[address] [place] [address] documented as of this encounter
--- OUTSIDE RECORDS SUMMARY | 2022-04-22 01:46 | XMS_ITS | Encounter Summary ---
:1945 Author Organization [facility] [place] [address] Care Team Providers Name Role Phone Javi Izaguirre DO Primary Care Provider Reason for Visit Reason Comments Chemotherapy Taxol Cycle 6 Encounter Details Date Type Department Care Team Description 12/30/2010 Office Visit Hematology Oncology at [facility] of breast (Primary Dx); [facility] Malignant neoplasm of breast (female), unspecified site [address] [place] [phone] Social History Tobacco Use Types Packs/Day Years Used Date Never Smoker Sex Assigned at Date Recorded Female 03/31/2021 3:33 PM EDT documented as of this encounter Progress Notes Romy Toscano RN - 12/30/2010 1:20 PM EDT INFUSION THERAPY ADMINISTRATION NOTES TIME TREATMENT STARTED: 1200 TIME TREATMENT ENDED: 1445 DIAGNOSIS: Breast Cancer PROTOCOL: no CYCLE #: 6 REASON FOR VISIT: Taxol infusion SUBJECTIVE Sofía Mcdonald offers no complaints. OBJECTIVE LAB DATA: Labs from today reviewed and found adequate for treatment. WBC 5.60, RBC 3.74, HGB 12.2, PLT 284, ANC 4.38 IF PAIN IS >5, INTERVENTION AND EFFECTIVENESS: n/a Pre administration: Chemotherapy orders independently verified for drug name, route, and dosage per patient's height, weight and BSA by Romy Toscano RN and Zoila Carlos RN. REACTIONS (DESCRIPTION, TIME, INTERVENTION AND EFFECTIVENESS) none ASSESSMENT Sofía Mcdonald was awake, alert and he tolerated treatment well. PLAN Return to clinic next week for consideration of cycle 7 of taxol. documented in this encounter Plan of Treatment [...] Rate Site dexamethasone sodium (PF) 10 Given 12/30/2010 12:50 PM EDT 236 mL/hr mg, ondansetron (ZOFRAN) 16 mg in sodium chloride 0.9% 59 mL IVPB Intravenous, at 236 mL/hr, ONCE, On Delaney 12/30/10 at 1300, 1 dose famotidine (PEPCID) 20 mg, Given 12/30/2010 12:30 PM EDT 210 mL/hr diphenhydrAMINE (BENADRYL) 25 mg in sodium chloride 0.9% 52.5 mL IVPB Intravenous, at 210 mL/hr, ONCE, On Delaney 12/30/10 at 1300, 1 dose paclitaxel (TAXOL) 143 mg in New Bag 12/30/2010 1:36 PM EDT 143 mg 273.8 mL/hr dextrose 5% Non-PVC 273.8333 mL chemo infusion 143 mg, Intravenous, ONCE, 1 dose, On Delaney 12/30/10 at 1300, Administer over 1 Hours documented in this encounter Care Teams Equip Maint Eng Relationship Specialty Start Date End Date Javi Izaguirre DO PCP - General 06/22/[address] [place] [address] documented as of this encounter
--- OUTSIDE RECORDS SUMMARY | 2022-04-22 01:46 | XMS_ITS | Encounter Summary ---
:1945 Author Organization [facility] [place] [address] Care Team Providers Name Role Phone Javi Izaguirre DO Primary Care Provider Reason for Visit Reason Comments Chemotherapy Cycle 4 Encounter Details Date Type Department Care Team Description 11/11/2010 Office Visit Hematology Oncology at [facility] (Primary Dx) [address] [phone] Social History Tobacco Use Types Packs/Day Years Used Date Never Smoker Sex Assigned at Date Recorded Female 03/31/2021 3:33 PM EDT documented as of this encounter Last Filed Vital Signs Vital Sign Reading Time Taken Comments Blood Pressure - - Pulse - - Temperature - - Respiratory Rate - - Oxygen Saturation - - Inhaled Oxygen Concentration - - Weight 74 kg (163 lb 2.3 oz) 11/10/2010 10:30 AM EDT Height 160.5 cm (5' 3.19) 11/10/2010 10:30 AM EDT Body Mass Index 28.73 11/10/2010 10:30 AM EDT documented in this encounter Progress Notes Rosi Arevalo RN - 11/11/2010 3:22 PM EDT .INFUSION THERAPY ADMINISTRATION NOTES TIME TREATMENT STARTED: 1120 TIME TREATMENT ENDED: 1500 DIAGNOSIS: Breast Ca CYCLE #: 4 REASON FOR VISIT: Cyclophosphamide and Doxorubicin SUBJECTIVE Sofía offers no complaints. OBJECTIVE LAB DATA: 11/11/10- WBC 9.07 Hg 12.4 Hct 36.7 Plat 342 ANC 7.50 IF PAIN IS >5, INTERVENTION AND EFFECTIVENESS: n/a HYDRATION, RATE, START TIME, STOP TIME NS @ KVO, [id number] Pre administration: Chemotherapy orders independently verified for drug name, route, and dosage per patient's height, weight and BSA by Francisca Suresh RN and Rosi Arevalo RN. REACTIONS (DESCRIPTION, TIME, INTERVENTION AND EFFECTIVENESS) none ASSESSMENT Sofía was awake, alert and he tolerated treatment well. PLAN: To return to clinic to clinic tomorrow for Neulasta Return to clinic per routine. documented in this encounter Plan of Treatment Not on filedocumented as of this encounter Visit Diagnoses Diagnosis Breast CA - Primary Malignant neoplasm of breast (female), u nspecified site documented in this encounter Administered Medications Inactive Administered Medications - up to 3 most recent administrations Medication Order MAR Action Action Date Dose Rate Site cyclophosphamide (CYTOXAN) New Bag 11/11/2010 1:55 PM 1,090 mg 3 04.5 mL/hr 1,090 mg in dextrose 5% 304.5 EDT mL chemo infusion 1,090 mg, Intravenous, ONCE, 1 dose, On Delaney 11/11/10 at 1100, Administer over 60 Minutes dexamethasone sodium (PF) 10 mg in sodium Given 11/11/2010 1 2:23 PM EDT 204 mL/hr chloride 0.9% 51 mL IVPB Intravenous, at 204 mL/hr, ONCE, On Delaney 11/11/10 at 1100, 1 dose DOXOrubicin (ADRIAMYCIN) chemo Given 11/11/2010 12:40 PM EDT 109 mg 654 mL/hr injection 109 mg 109 mg, Intravenous, ONCE, 1 dose, On Delaney 11/11/10 at 1100, Administer over 5 Minutes fosaprepitant (EMEND) 150 mg in New Bag 11/11/2010 11:00 AM ED T 150 mg 310 mL/hr sodium chloride 0.9% 155 mL infusion 150 mg, Intravenous, ONCE, 1 dose, On Delaney 11/11/10 at 1100, Administer over 30 Minutes palonosetron (ALOXI) injection 0.25 mg Given 11/11/2010 11:44 AM EDT 0.25 mg 0.25 mg, Intravenous, ONCE, 1 dose, On Delaney 11/11/10 at 1100, Routine documented in this encounter Care Teams Deicer Kit Assembler Relationship Specialty Start Date End Date Javi Izaguirre DO PCP - General 06/22/[address] [place] [address] documented as of this encounter
--- OUTSIDE RECORDS SUMMARY | 2022-04-22 01:46 | XMS_ITS | Encounter Summary ---
:1945 Author Organization [facility] [address] Care Team Providers Name Role Phone Javi Izaguirre DO Primary Care Provider Reason for Visit Reason Comments Follow-up Cycle 5 of 12 Encounter Details Date Type Department Care Team Description 12/23/2010 Follow-Up Hematology Oncology at Audra Heard APRN Breast cancer (Primary [address] Dx) [address] [place] [id number] [phone] Social History Tobacco Use Types Packs/Day Years Used Date Never Smoker Sex Assigned at Date Recorded Female 03/31/2021 3:33 PM EDT documented as of this encounter Last Filed Vital Signs Vital Sign Reading Time Taken Comments Blood Pressure 117/63 12/23/2010 9:33 AM EDT Pulse 60 12/23/2010 9:33 AM EDT Temperature 36.6 ??C (97.9 ??F) 12/23/2010 9:33 AM EDT Respiratory Rate 18 12/23/2010 9:33 AM EDT Oxygen Saturation 97% 12/23/2010 9:33 AM EDT Inhaled Oxygen Concentration - - Weight 72.5 kg (159 lb 13.3 oz) 12/23/2010 9:33 AM EDT Height 160.5 cm (5' 3.19) 12/23/2010 9:33 AM EDT Body Mass Index 28.14 12/23/2010 9:33 AM EDT documented in this encounter Progress Notes Kiana Heard, ADILENE - 12/23/2010 10:04 AM EDT 1. Breast cancer - stage IIA, pT1c, pN1, NC, IDC, low grade, ER/WV positive, HER2/ricardo negative. Recommendations are made for four cycles of AC followed by T x 12, XRT, and AI. -- patient declined clinical trial - neoadjuvant chemotherapy AI. Path: IDC w/lobular features. DCIS. 07/19/10 B breast MRI: 45 x 38 x 23 mm mass in L breast @ 1100, 5 cm from nipple, 25 mm from skin. Mass seen as multiple clumped enhancing nodules about bx site w/most worrisome kinetics 20 mm posterior (deep) to bx site. 07/21/[address] Diallo, w/exam showing L breast to be slightly larger than R w/bx site on lower mid quadrant of L breast in outer portion & vague palpable mass in UOQ, probably corresponding to abnormality seen on mmg. No adenop. 08/09/10 L partial mastectomy w/needle loc & L breast SNB. Specimen mmg showed suspicious area & clip in specimen. Path: IDC, low gr, SBR 5, tumor size 1.7 cm, +DCIS & LCIS (minor component, intermed gr DCIS, nonecrosis, pattern of papillary & micropapillary), no ALI/PI, RM uninvolved by invasive ca/DCIS, but close. Nearest RM to invasive ca < 0.1 cm @ caudal RM. Nearest RM to DCIS 0.1 cm to caudal RM.1 axillary lymph node (sentinel, + for micromet [0.15 cm, no extranodal extension]). ERPR+. pT1C N1mi. Comment: The LCIS is @ the medial/deep RM. [id number] 08/26/10 L partial mastectomy caudal margin. 09/21/10 - f/u surgery - incision well healed, no lymphadenopathy or edema. -- 09/30/10 - c#1 dose dense AC (q 2wks x 4) - Neulasta d#2 -- 10/14/10 - c#2 dd AC - Neulasta -- 10/28/10 - c#3 - Neulasta -- 11/11/10 - c#4 - Neulasta Plan to begin weekly Taxol 11/26/10 - madelin #1 12/09/10 - for cycle #312 weekly taxol 2. Multiple sclerosis - relapsing-remitting multiple sclerosis established in 2001. Her most recent relapse event was in 2001 and her immunotherapy treatment history is significant for Copaxone in the past. 3. left hearing loss - r/t MS 4. R Colles fracture 1. R Colles fracture 5. Arnold's cough reflex Interim History: Patient returns with ER/WV positive, breast cancer undergoing adjuvant chemotherapy. She feels less fatigued this interval and Generally, she feels some fatigue. Metallic taste in mouth, eating well. Pain - in her shoulder neckand knees from osteoarthritis, imporves with moving. Using Ambien for sleep. Nausea x 1 after tx relieved with ativan. INTERIM SOCIAL/FAMILY HISTORY: No interval change. REVIEW OF SYSTEMS: Energy: mild fatigue Pain: no Appetite:good Fevers/chills/drenching sweats:No Bruising/bleeding/melena:No Recent infections:No HEENT: negative Nausea/vomiting/diarrhea/constipation: managing constipation Dysuria: No SOB/cough/chest pain: No Change in adenopathy or other masses:No Unexpected weight loss or gain:No Skin rashes or petechiae:No Musculoskeletal complaints: Joint pain, intermittent and chronic, using hydrocodone prn w/good effect Extremities: Negative upper and lower bilaterally Neurologic symptoms: little tingling in hands, no tingling today PHYSICAL EXAM: Ms. Mcdonald NAD, A & O x 3. HEENT: Sclera anicteric, oral pharynx is clear. Neck is supple, no swelling or erythema or tenderness in right or left. No supraclavicular fullness or upper chest fullness, tenderness or erythema. Skin: Without rash or petechia. Lymph: No cervical, supraclavicular lymphadenopathy. Lungs: Bronchovesicular breath sounds throughout, no wheezes, rales, rhonci. Cardiac: Regular rate rhythm, S1, S2, no murmur, rub or gallop. Abdomen: Soft, non-tender, spleen and liver non palpable. Extremities: No lower extremity edema. M/S: No sternal or spinal tenderness. Neurologic: Gait steady, speech clear, cognition intact, no focal neurologic deficit. Labs: WBC 4.43, Hg 12.3, PLT 271k, ANC 3.11, Glu 79, bun 17, creat 0.6, AP 99, AST 17, ALT 45, Na 142, K 4.2. ASSESSMENT/PLAN: Breast cancer - tolerating adjuvant treatment well. Labs adequate. Proceed w/ treatment today. Cycle #5/12 RTC in one week, cbc, cmp consider week 4/12. documented in this encounter Procedure Notes Provider, Scanning - 12/23/2010 3:45 PM EDTAssociated Order(s): SCAN DOC: LAB documented in this encounter Plan of Treatment Not on filedocumented as of this encounter Procedures Procedure Name Priority Date/Time Associated Diagnosis Comme nts LAB SCAN 12/23/2010 3:45 PM Results f or this EDT procedure are i n the results section . documented in this encounter Results SCAN DOC: LAB (12/23/2010 3:45 PM EDT) Narrative 12/23/2010 3:45 PM EDT Procedure Note Provider, Scanning - 12/23/2010 3:45 PM EDT Scanning Provider MEDIA MGR SCAN EXT ORDR/RSLT documented in this encounter Visit Diagnoses Diagnosis Breast cancer - Primary Malignant neoplasm of breast (female), u nspecified site documented in this encounter Care Teams Water Quality Manager Relationship Specialty Start Date End Date Javi Izaguirre DO PCP - General 06/22/[address] [place] [address] documented as of this encounter
--- OUTSIDE RECORDS SUMMARY | 2022-04-22 01:46 | XMS_ITS | Encounter Summary ---
:1945 [place] [address] Care Team Providers Name Role Phone Javi Izaguirre DO Primary Care Provider Encounter Details Date Type Department Care Team Description 09/29/2010 Hospital Encounter Non-Invasive Cardiology CARDI O, ECHO SIXTY MIN APPT None Lab Steve Anna MD [address] [place] [address] [address] [place] [address] [place] [phone] Social History Tobacco Use Types Packs/Day Years Used Date Never Assessed Sex Assigned at Date Recorded Female 03/31/2021 3:33 PM EDT documented as of this encounter Plan of Treatment Not on filedocumented as of this encounter Visit Diagnoses Not on filedocumented in this encounter Care Teams Concrete Engineering Technician Relationship Specialty Start Date End Date Javi Izaguirre DO PCP - General 06/22/[address] [place], [place] [address] documented as of this encounter
--- OUTSIDE RECORDS SUMMARY | 2022-04-22 01:46 | XMS_ITS | Encounter Summary ---
:1945 Author Organization [facility] [place] [address] Care Team Providers Name Role Phone Javi Izaguirre DO Primary Care Provider Reason for Visit Reason Comments Breast Cancer Encounter Details Date Type Department Care Team Description 12/09/2010 Follow-Up Hematology Oncology at Audra Heard APRN Breast cancer (Primary [address] Dx) [address] [place] [phone] Social History Tobacco Use Types Packs/Day Years Used Date Never Smoker Sex Assigned at Date Recorded Female 03/31/2021 3:33 PM EDT documented as of this encounter Last Filed Vital Signs Vital Sign Reading Time Taken Comments Blood Pressure 115/70 12/09/2010 9:36 AM EDT Pulse 67 12/09/2010 9:36 AM EDT Temperature 36.5 ??C (97.7 ??F) 12/09/2010 9:36 AM EDT Respiratory Rate 18 12/09/2010 9:36 AM EDT Oxygen Saturation 97% 12/09/2010 9:36 AM EDT Inhaled Oxygen Concentration - - Weight 71 kg (156 lb 8.4 oz) 12/09/2010 9:36 AM EDT Height 161 cm (5' 3.39) 12/09/2010 9:36 AM EDT Body Mass Index 27.39 12/09/2010 9:36 AM EDT documented in this encounter Progress Notes Kiana Heard, ZINC PLATE CUTTER - 12/09/2010 10:21 AM EDT 1. Breast cancer - stage IIA, pT1c, pN1, RI, IDC, low grade, ER/CA positive, HER2/ricardo negative. 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 [id number] 08/26/10 L partial mastectomy caudal margin. 09/21/10 - f/u surgery - incision well healed, no lymphadenopathy or edema. -- 3/3/11 - c#1 dose dense AC (q 2wks x 4) - Neulasta d#2 -- 10/14/10 - c#2 dd AC - Neulasta -- 10/28/10 - c#3 - Neulasta -- 11/11/10 - c#4 - Neulasta Plan to begin weekly Taxol 11/26/10 - madelin #1 12/09/10 - for cycle #3/12 weekly taxol 2. Multiple sclerosis - relapsing-remitting multiple sclerosis established in 2001. Her most recent relapse event was in 2001 and her immunotherapy treatment history is significant for Copaxone in the past. 3. left hearing loss - r/t MS 4. R Colles fracture 1. R Colles fracture 5. Arnold's cough reflex Interim History: Patient returns with ER/CA positive, breast cancer undergoing adjuvant chemotherapy. She feels less fatigued this interval and Generally, she feels well. Cough is gone. She has improved appetite, energy and cognition feels less foggy. No complaints. No neuropathy. INTERIM SOCIAL/FAMILY HISTORY: No interval change. REVIEW [...] in hands, no tingling today PHYSICAL EXAM: BP 115/70 Pulse 67 Temp(Src) 36.5 ??C (97.7 ??F) (Oral) Resp 18 Ht 1.61 m (5' 3.39) Wt 71kg (156 lb 8.4 oz) BMI 27.39 kg/m2 SpO2 97% MsAlvaro Tamara CRUZ, A & O x 3. HEENT: Sclera [...] intact, no focal neurologic deficit. Labs: WBC 3.60, Hg 12.2, PLT 329k, ANC 2.50, Glu 68, bun 14, creat 0.6, AP 95, Na 143, K 3.7, AST 20, ALT 56. ASSESSMENT/PLAN: Breast cancer - tolerating adjuvant treatment well. Labs adequate. Proceed w/ treatment today. RTC in one week, cbc, cmp consider week 4/12. documented in this encounter Procedure Notes Provider, Scanning - 12/09/2010 2:57 PM EDTAssociated Order(s): SCAN DOC: LAB documented in this encounter Plan of Treatment Not on filedocumented as of this encounter Procedures Procedure Name Priority Date/Time Associated Diagnosis Comme nts LAB SCAN 12/09/2010 2:57 PM Results f or this EDT procedure are i n the results section . documented in this encounter Results SCAN DOC: LAB (12/09/2010 2:57 PM EDT) Narrative 12/09/2010 2:57 PM EDT Procedure Note Provider, Scanning - 12/09/2010 2:57 PM EDT Scanning Provider MEDIA MGR SCAN EXT ORDR/RSLT documented in this encounter Visit Diagnoses Diagnosis Breast cancer - Primary Malignant neoplasm of breast (female), u nspecified site documented in this encounter Care Teams Legger Press Operator Relationship Specialty Start Date End Date Javi Izaguirre DO PCP - General 06/22/[address] [place] [address] documented as of this encounter
--- OUTSIDE RECORDS SUMMARY | 2022-04-22 01:46 | XMS_ITS | Encounter Summary ---
:1945 Author Organization [facility] [place] [address] Care Team Providers Name Role Phone Dmitriy Javi BURKS Primary Care Provider Reason for Visit Reason Comments Breast Cancer Encounter Details Date Type Department Care Team Description 11/11/2010 Follow-Up Hematology Oncology at Antony Cuevas MD Breast cancer (Primary [address] Dx) [address] [place] [phone] Social History Tobacco Use Types Packs/Day Years Used Date Never Smoker Sex Assigned at Date Recorded Female 03/31/2021 3:33 PM EDT documented as of this encounter Last Filed Vital Signs Vital Sign Reading Time Taken Comments Blood Pressure 126/73 11/11/2010 10:12 AM EDT Pulse 73 11/11/2010 10:12 AM EDT Temperature 36.3 ??C (97.3 ??F) 11/11/2010 10:12 AM EDT Respiratory Rate 20 11/11/2010 10:12 AM EDT Oxygen Saturation 95% 11/11/2010 10:12 AM EDT Inhaled Oxygen Concentration - - Weight 71.9 kg (158 lb 8 oz) 11/11/2010 10:12 AM EDT Height 160.5 cm (5' 3.19) 11/11/2010 10:12 AM EDT Body Mass Index 27.91 11/11/2010 10:12 AM EDT documented in this encounter Progress Notes Steve Cuevas MD - 11/11/2010 11:07 AM EDT DIAGNOSIS: Stage IIA (pT1c pN1 MX), IDC, low-grade, ER/IL positive, 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 SUBJECTIVE: Sofía comes in today for her fourth cycle of AC. She had been having problems with a dry cough and, surprisingly, she went to see her ENT doctor, who noticed some ear inflammation. Cleaned her ears out, and it has actually been better since then. Her neck discomfort is better and, other than fatigue and a bit of sore gums, she is doing quite well overall. Review of systems otherwise negative. Past medical history and social history are reviewed and unchanged. Review of Systems Constitutional: Negative for fever, chills, activity change, unexpected weight change. HENT: Negative for sore [...] She has no rebound and no guarding. Lymphadenopathy: She has no cervical adenopathy. She has no axillary adenopathy. Right: No inguinal adenopathy present. Left: No supraclavicular adenopathy present. Neurological: She is alert and oriented to person, place, and time. No cranial nerve deficit. Coordination normal. Skin: Skin is warm and dry. No rash noted. Patient's laboratory is reviewed. White count is 9.0. Hemoglobin 12.4, hematocrit 36.7, platelet count 342,000. Neutrophil count is 7.5. CMP shows a normal creatinine of 0.7 and normal liver tests. ASSESSMENT: The patient is ready for her final dose-dense AC chemotherapy and is tolerating things well. We have discussed about the nature of stomatitis and also spent some time today talking about her next chemotherapy agent which is Taxol. We have made a decision not to premedicate her with the steroids the night before, and we will see how things go overall with treatment. She does not have any baseline neuropathy symptoms despite having her diagnosis of MS. PLAN: Final AC chemotherapy with Neulasta today. We will see her back in two weeks and plan on starting her on Taxol weekly at that point, 80 mg per meter squared. She will call if problems develop in the interim. documented in this encounter Procedure Notes Provider, Scanning - 11/11/2010 11:09 AM EDTAssociated Order(s): LAB SCAN documented in this encounter Plan of Treatment Not on filedocumented as of this encounter Procedures Procedure Name Priority Date/Time Associated Diagnosis Comme nts LAB SCAN 11/11/2010 11:09 AM Breast cancer Results for this EDT procedure are i n the results section . documented in this encounter Results LAB SCAN (11/11/2010 11:09 AM EDT) Narrative 11/11/2010 11:09 AM EDT Procedure Note Provider, Scanning - 11/11/2010 11:09 AM EDT Scanning Provider MEDIA MGR SCAN EXT ORDR/RSLT documented in this encounter Visit Diagnoses Diagnosis Breast cancer - Primary Malignant neoplasm of breast (female), u nspecified site documented in this encounter Care Teams Chrome Polisher Relationship Specialty Start Date End Date Javi Izaguirre DO PCP - General 06/22/[address] [place] [address] documented as of this encounter
--- OUTSIDE RECORDS SUMMARY | 2022-04-22 01:46 | XMS_ITS | Encounter Summary ---
:1945 Author Organization [facility] [place] [address] Care Team Providers Name Role Phone Javi Izaguirre DO Primary Care Provider Encounter Details Date Type Department Care Team Description 07/19/2010 Hospital Encounter Laboratory Jake Diallo, [place] [phone] GENERAL SURGERY [place], [place] [address] (Wo rk) Social History Tobacco Use Types Packs/Day Years Used Date Never Assessed Sex Assigned at Date Recorded Female 03/31/2021 3:33 PM EDT documented as of this encounter Plan of Treatment Not on filedocumented as of this encounter Visit Diagnoses Not on filedocumented in this encounter Care Teams Account Executive Software Sales Relationship Specialty Start Date End Date Javi Izaguirre DO PCP - General 06/22/[address] [place] [address] documented as of this encounter
--- OUTSIDE RECORDS SUMMARY | 2022-04-22 01:46 | XMS_ITS | Encounter Summary ---
:1945 Author Organization [facility] [place] [address] Care Team Providers Name Role Phone Javi Izaguirre DO Primary Care Provider Encounter Details Date Type Department Care Team Description 12/06/2010 Hospital Encounter XRay at [address] [place] [phone] Social History Tobacco Use Types Packs/Day Years Used Date Never Smoker Sex Assigned at Date Recorded Female 03/31/2021 3:33 PM EDT documented as of this encounter Medications at Time of Discharge Medication Sig Dispensed Refills Start Date End Date zolpidem (AMBIEN) 10 mg Take 1 tablet by 30 tablet 3 201012/26/2010 tabletIndications: mouth nightly as Insomnia needed for Sleep for 30 days. GLUCOSAMINE SULFATE Take 500 mg by 0 [...] ACID (VITAMIN C 0 10/14/2010 03/15/2011 ORAL) GLUC JAEGER/CHONDRO JAEGER A/VIT 0 10/14/2010 12/16/2010 C/MN (GLUCOSAMINE 1500 COMPLEX ORAL) ondansetron (ZOFRAN) 8 mg 8 MG = 1 Tablet(s), 0 0 10/14/2010 01/28/2011 tablet PO, Three times daily,PRN documented as of this encounter Plan of Treatment Not on filedocumented as of this encounter Visit Diagnoses Not on filedocumented in this encounter Care Teams Senior Sql Server Database Developer Relationship Specialty Start Date End Date Javi Izaguirre DO PCP - General 06/22/[address] [place] [address] documented as of this encounter
--- OUTSIDE RECORDS SUMMARY | 2022-04-22 01:46 | XMS_ITS | Encounter Summary ---
:1945 Author Organization [facility] [place] [address] Care Team Providers Name Role Phone Javi Izaguirre DO Primary Care Provider Reason for Visit Reason Comments Follow-up Encounter Details Date Type Department Care Team Description 11/26/2010 Follow-Up Hematology Oncology at [facility], December Breast cancer; [address] [place] [phone] Social History Tobacco Use Types Packs/Day Years Used Date Never Smoker Sex Assigned at Date Recorded Female 03/31/2021 3:33 PM EDT documented as of this encounter Last Filed Vital Signs Vital Sign Reading Time Taken Comments Blood Pressure 115/60 11/26/2010 1:34 PM EDT Pulse 68 11/26/2010 1:34 PM EDT Temperature 36.6 ??C (97.9 ??F) 11/26/2010 1:34 PM EDT Respiratory Rate 18 11/26/2010 1:34 PM EDT Oxygen Saturation 95% 11/26/2010 1:34 PM EDT Inhaled Oxygen Concentration - - Weight 71.7 kg (158 lb) 11/26/2010 1:34 PM EDT Height 161 cm (5' 3.39) 11/26/2010 1:34 PM EDT Body Mass Index 27.65 11/26/2010 1:34 PM EDT documented in this encounter Progress Notes Kiana Heard, PEARL RESTORER - 11/26/2010 2:37 PM EDT 1. Breast cancer - stage IIA, pT1c, pN1, MO, IDC, low grade, ER/AZ positive, HER2/ricardo negative. 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 [id number] 08/26/10 L partial mastectomy caudal margin. 09/21/10 - f/u surgery - incision well healed, no lymphadenopathy or edema. -- 09/30/10 - c#1 dose dense AC (q 2wks x 4) - Neulasta d#2 -- 10/14/10 - c#2 dd AC - Neulasta -- 10/28/10 - c#3 - Neulasta -- 11/11/10 - c#4 - Neulasta Plan to begin weekly Taxol 11/26/10 - madelin #1 2. Multiple sclerosis - relapsing-remitting multiple sclerosis established in 2001. Her most recentrelapse event was in 2001 and her immunotherapy treatment history is significant for Copaxone in thepast. 3. left hearing loss - r/t MS 4. R Colles fracture 1. R Colles fracture 5. Arnold's cough reflex Interim History: Patient returns with breast cancer undergoing adjuvant chemotherapy, two weeks fromcompleting her fourth cycle of AC. She feels less fatigued this interval and has returned from a vacation to see her grandchildren. She has Arnold's Cough Refex - dx reportedly by her ENT. She has difficulty sleeping at night. INTERIM SOCIAL/FAMILY HISTORY: No interval change. REVIEW OF SYSTEMS: Energy: fatigue Pain: neck arthritis Appetite:good Fevers/chills/drenching sweats:No Bruising/bleeding/melena:No Recent infections:No HEENT: negative Nausea/vomiting/diarrhea/constipation: managing constipation Dysuria: No SOB/cough/chest pain: chronic cough, non productive Change in adenopathy or other masses:No Unexpected [...] or upper chest fullness, tenderness or erythema. No pain or swelling over mediport MUNA. TMs pearly. Skin: Without rash or petechia. Lymph: No cervical, supraclavicular, axillary lymphadenopathy. Lungs: Bronchovesicular breath sounds throughout, no wheezes, rales, rhonci. Cardiac: Regular rate rhythm, S1, S2, no murmur, rub or gallop. Abdomen: Soft, non-tender, spleen and liver non palpable. Extremities: No lower extremity edema. M/S: No sternal or spinal tenderness. Neurologic: Gait steady, speech clear, cognition intact, no focal neurologic deficit. Labs: WBC 8.39, Hg 11.6, PLT 398k, ANC 6.69, Glu 87, bun 17, creat 0.6, AP 135, Na 139, K 4.0, AST 16, ALT 36. ASSESSMENT/PLAN: Breast cancer - tolerating treatment. Labs adequate. Proceed w/ treatment today. RTC in one week, cbc, cmp consider next cycle. documented in this encounter Procedure Notes Provider, Scanning - 11/29/2010 10:59 AM EDTAssociated Order(s): SCAN DOC: LAB documented in this encounter Plan of Treatment Not on filedocumented as of this encounter Procedures Procedure Name Priority Date/Time Associated Diagnosis Comme nts LAB SCAN 11/29/2010 10:59 AM Results for this EDT procedure are i n the results section . documented in this encounter Results SCAN DOC: LAB (11/29/2010 10:59 AM EDT) Narrative 11/29/2010 10:59 AM EDT Procedure Note Provider, Scanning - 11/29/2010 10:59 AM EDT Scanning Provider MEDIA MGR SCAN EXT ORDR/RSLT documented in this encounter Visit Diagnoses Diagnosis Breast cancer Malignant neoplasm of breast (female), u nspecified site Insomnia Insomnia, unspecified documented in this encounter Care Teams Advice Clerk Relationship Specialty Start Date End Date Javi Izaguirre DO PCP - General 06/22/[address] [place] [address] documented as of this encounter
--- OUTSIDE RECORDS SUMMARY | 2022-04-22 01:46 | XMS_ITS | Encounter Summary ---
:1945 Author Organization [facility] [place] [address] Care Team Providers Name Role Phone Javi Izaguirre DO Primary Care Provider Encounter Details Date Type Department Care Team Description 09/29/2010 Hospital Encounter Radiology at [facility], [facility] Steve Cuevas MD [address] [place] [address] [address] [place] [id number] [place] [phone] Social History Tobacco Use Types Packs/Day Years Used Date Never Assessed Sex Assigned at Date Recorded Female 03/31/2021 3:33 PM EDT documented as of this encounter Plan of Treatment Not on filedocumented as of this encounter Visit Diagnoses Not on filedocumented in this encounter Care Teams Briquette Maker Relationship Specialty Start Date End Date Javi Izaguirre DO PCP - General 06/22/[address] [place] [address] documented as of this encounter
--- OUTSIDE RECORDS SUMMARY | 2022-04-22 01:46 | XMS_ITS | Encounter Summary ---
:1945 Author Organization [facility] [place] [address] Care Team Providers Name Role Phone Javi Izaguirre DO Primary Care Provider Reason for Visit Reason Comments Follow-up Anticipated Cycle 6 of Taxol Encounter Details Date Type Department Care Team Description 01/06/2011 Follow-Up Hematology Oncology at Audra Heard APRN Breast cancer (Primary [address] Dx) [address] [place] [phone] Social History Tobacco Use Types Packs/Day Years Used Date Never Smoker Sex Assigned at Date Recorded Female 03/31/2021 3:33 PM EDT documented as of this encounter Last Filed Vital Signs Vital Sign Reading Time Taken Comments Blood Pressure 113/69 01/06/2011 9:17 AM EDT Pulse 62 01/06/2011 9:17 AM EDT Temperature 36.8 ??C (98.2 ??F) 01/06/2011 9:17 AM EDT Respiratory Rate 18 01/06/2011 9:17 AM EDT Oxygen Saturation 98% 01/06/2011 9:17 AM EDT Inhaled Oxygen Concentration - - Weight 74 kg (163 lb 2.3 oz) 01/06/2011 9:17 AM EDT Height 160.5 cm (5' 3.19) 01/06/2011 9:17 AM EDT Body Mass Index 28.73 01/06/2011 9:17 AM EDT documented in this encounter Progress Notes Kiana Heard, SHOP FITTER - 01/06/2011 9:08 AM EDT Hematology/Oncology [facility] [place], [address] (ph) - [phone] (fax) ESTABLISHED PATIENT EVALUATION: 1. Breast cancer - stage IIA, pT1c, pN1, DC, IDC, low grade, ER/MA positive, HER2/ricardo negative. 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 [id number]-. 08/26/10 L partial mastectomy caudal margin. 09/21/10 - f/u surgery - incision well healed, no lymphadenopathy or edema. -- 09/30/10 - c#1 dose dense AC (q 2wks x 4) - Neulasta d#2 -- 10/14/10 - c#2 dd AC - Neulasta -- 10/28/10 - c#3 - Neulasta -- 11/11/10 - c#4 - Neulasta Plan to begin weekly Taxol for 12 cycles, start 11/26/10 - madelin # 2. Multiple sclerosis - relapsing-remitting multiple sclerosis established in 2001. Her most recent relapse event was in 2001 and her immunotherapy treatment history is significant for Copaxone in the past. 3. left hearing loss - r/t MS 4. R Colles fracture 1. R Colles fracture 5. Arnold's cough reflex INTERIM HISTORY: Patient returns to the clinic today with hormone receptor positive breast cancer undergoing adjuvant chemotherapy. She anticipates week 6/12 Taxol. Feels some minor fatigue. Mouth sores, not worsening. No numbness or tingling in extremities or otherwise. INTERIM SOCIAL/FAMILY HISTORY: No interval change. REVIEW OF SYSTEMS: Energy: stable Pain: none today, intermittent x 1 week right clavicle - nega xray at pcp Appetite:good Fevers/chills/drenching sweats:No Bruising/bleeding/melena:No Recent infections:No HEENT: negative Nausea/vomiting/diarrhea/constipation:No Dysuria: No SOB/cough/chest pain:No Change in adenopathy or other masses:No Unexpected weight loss or gain:No Skin rashes or petechiae:No Musculoskeletal complaints:No Extremities: Negative upper and lower bilaterally Neurologic symptoms:No PHYSICAL EXAM: BP 113/69 Pulse 62 Temp(Src) 36.8 ??C (98.2 ??F) (Oral) Resp 18 Ht 1.605 m (5' 3.19) Wt 74 kg (163 lb 2.3 oz) BMI 28.73 kg/m2 SpO2 98% NAD, A & O x 3. HEENT: Sclera anicteric. Ulcerations tongue bilaterally. No white patchy exudate. Skin: Without rash or petechia. Lymph: No cervical, supraclavicular, axillary lymphadenopathy. Lungs: Bronchovesicular breath sounds throughout, no wheezes, rales, rhonci. Cardiac: Regular rate rhythm, S1, S2, no murmur, rub or gallop. Abdomen: Soft, non-tender, spleen and liver non palpable. Extremities: No lower extremity edema. M/S: No sternal or spinal tenderness. No right clavicular tenderness, no swelling, left or right. Neurologic: Gait steady, speech clear, cognition intact, no focal neurologic deficit. RADIOLOGY: no new studies LABORATORY: WBC 3.41, Hg 11.9, PLT 315k, ANC 2.30, Glu 82, bun 22, creat 0.8, AP 90, AST 19, ALT 42,Na 140, K 4.2. ASSESSMENT/PLAN: Breast cancer stage IIA - tolerating treatment with anticipated side effects. Counts adequate. Proceed with week 6 Taxol RTC in one week w/cbc, cmp for cycle 6 Paitent was reminded to call in the interim should questions or concerns arise. documented in this encounter Procedure Notes Provider, Scanning - 01/06/2011 10:51 AM EDTAssociated Order(s): SCAN DOC: LAB documented in this encounter Plan of Treatment Not on filedocumented as of this encounter Procedures Procedure Name Priority Date/Time Associated Diagnosis Comme nts LAB SCAN 01/06/2011 10:51 AM Breast cancer Results for this EDT procedure are i n the results section . documented in this encounter Results SCAN DOC: LAB (01/06/2011 10:51 AM EDT) Narrative 01/06/2011 10:51 AM EDT Procedure Note Provider, Scanning - 01/06/2011 10:51 AM EDT Scanning Provider MEDIA MGR SCAN EXT ORDR/RSLT documented in this encounter Visit Diagnoses Diagnosis Breast cancer - Primary Malignant neoplasm of breast (female), u nspecified site documented in this encounter Care Teams Radio Antenna Installer Relationship Specialty Start Date End Date Javi Izaguirre DO PCP - General 06/22/[address] [place] [address] documented as of this encounter
--- OUTSIDE RECORDS SUMMARY | 2022-04-22 01:46 | XMS_ITS | Encounter Summary ---
:1945 Author Organization [facility] [place] [address] Care Team Providers Name Role Phone Dmitriy, Javi BURKS Primary Care Provider Reason for Visit Reason Comments Chemotherapy Breast Cancer Encounter Details Date Type Department Care Team Description 12/16/2010 Follow-Up Hematology Oncology at Antony Cuevas MD Breast cancer (Primary [address] Dx) [address] [place] [phone] Social History Tobacco Use Types Packs/Day Years Used Date Never Smoker Sex Assigned at Date Recorded Female 03/31/2021 3:33 PM EDT documented as of this encounter Last Filed Vital Signs Vital Sign Reading Time Taken Comments Blood Pressure 121/63 12/16/2010 10:46 AM EDT Pulse 64 12/16/2010 10:46 AM EDT Temperature 36.6 ??C (97.9 ??F) 12/16/2010 10:46 AM EDT Respiratory Rate 18 12/16/2010 10:46 AM EDT Oxygen Saturation 96% 12/16/2010 10:46 AM EDT Inhaled Oxygen Concentration - - Weight 72.5 kg (159 lb 13.3 oz) 12/16/2010 10:46 AM EDT Height 161 cm (5' 3.39) 12/16/2010 10:46 AM EDT Body Mass Index 27.97 12/16/2010 10:46 AM EDT documented in this encounter Progress Notes Steve Cuevas MD - 12/16/2010 11:19 AM EDT DIAGNOSIS: Stage IIA (pT1c pN1 MX), IDC, low-grade, ER/KS positive, 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 Subjective: Sofía comes in today for consideration of week four chemotherapy with weekly Taxol in the adjuvant treatment of her stage II breast cancer. She is tolerating chemotherapy well. She is not sure she's having any neuropathy and doesn't note any actual numbness but has noted she drops things a little moreeasily than she used to. Otherwise review systems this unremarkable. She feels much better on this part of chemotherapy when compared to the Adriel Arm. Past medical history and social history are reviewed and unchanged from when I saw her last last month. Review of Systems Constitutional: Negative for fever, [...] Negative. Neurological: Negative. Hematological: Negative for adenopathy. Head: Normocephalic, without [...] supraclavicular, and axillary nodes normal Neurologic: Normal Laboratory: Blood counts today show white count a 3.6 hemoglobin 11.7 platelet count of 160,000 ANC of 2.46. CMPshows normal liver tests and creatinine of 0.7. Assessment/plan: The patient is doing well and it is fine for week for chemotherapy with Taxol without dose change. We will proceed with treatment today and then see her back next week with the CBC and CMP in anticipation of cycle five. Plans are for 12 four weeks of treatment. She'll call if problems develop in the interim. documented in this encounter Procedure Notes Provider, Scanning - 12/17/2010 8:16 AM EDTAssociated Order(s): SCAN DOC: LAB documented in this encounter Plan of Treatment Not on filedocumented as of this encounter Procedures Procedure Name Priority Date/Time Associated Diagnosis Comme nts LAB SCAN 12/17/2010 8:16 AM Results f or this EDT procedure are i n the results section . documented in this encounter Results SCAN DOC: LAB (12/17/2010 8:16 AM EDT) Narrative 12/17/2010 8:16 AM EDT Procedure Note Provider, Scanning - 12/17/2010 8:16 AM EDT Scanning Provider MEDIA MGR SCAN EXT ORDR/RSLT documented in this encounter Visit Diagnoses Diagnosis Breast cancer - Primary Malignant neoplasm of breast (female), u nspecified site documented in this encounter Care Teams Curber Relationship Specialty Start Date End Date Javi Izaguirre DO PCP - General 06/22/[address] [place] [address] documented as of this encounter
--- OUTSIDE RECORDS SUMMARY | 2022-04-22 01:46 | XMS_ITS | Encounter Summary ---
:1945 Author Organization [facility] [place] [address] Care Team Providers Name Role Phone Javi Izaguirre DO Primary Care Provider Encounter Details Date Type Department Care Team Description 09/22/2010 Office Visit Hematology Oncology at [facility] , Steve Reddy MD [address] [place] [address] [place], [place] [phone] (W ork) [phone] Social History Tobacco Use Types Packs/Day Years Used Date Never Assessed Sex Assigned at Date Recorded Female 03/31/2021 3:33 PM EDT documented as of this encounter Plan of Treatment Not on filedocumented as of this encounter Visit Diagnoses Not on filedocumented in this encounter Care Teams Printing Gray Cloth Tender Relationship Specialty Start Date End Date Javi Izaguirre DO PCP - General 06/22/[address] [place] [address] documented as of this encounter
--- OUTSIDE RECORDS SUMMARY | 2022-04-22 01:46 | XMS_ITS | Encounter Summary ---
:1945 Author Organization [facility] [place] [address] Care Team Providers Name Role Phone DmitriyJavi agrawal Primary Care Provider Reason for Visit Reason Comments Breast Cancer taxol # 9 Encounter Details Date Type Department Care Team Description 01/20/2011 Office Visit Hematology Oncology at CLINIC, DR BLAS Ca ncer of breast (Primary Dx); [facility] HEM/ONC Malignant neoplasm of breast (female), unspecified site [address] [place] [phone] Social History Tobacco Use Types Packs/Day Years Used Date Never Smoker Sex Assigned at Date Recorded Female 03/31/2021 3:33 PM EDT documented as of this encounter Progress Notes Nat Suresh RN - 01/20/2011 3:41 PM EDT INFUSION THERAPY ADMINISTRATION NOTES TIME TREATMENT STARTED: 1000 TIME TREATMENT ENDED: 5 DIAGNOSIS: breast cancer PROTOCOL:na CYCLE #:week # 9 REASON FOR VISIT: SUBJECTIVE Pt offers no complaints. OBJECTIVE LAB DATA: WNL for treatment Pre administration: Chemotherapy orders independently verified for drug name, route, and dosage per patient's height, weight and BSA by Daniel Suresh RN and Ashu Carlos RN. At time of administration: Immediately prior to administration Daniel Suresh RN and Gisell Martinez RN, independently verified the patient's identity using the patient's name and date of , and confirmed the drug name, dose, volume, route, expiration date/time and rate of administration delivered via IV pump. Taxol given REACTIONS (DESCRIPTION, TIME, INTERVENTION AND EFFECTIVENESS) none ASSESSMENT PT was awake, alert and he tolerated treatment well. PLAN Return to clinic next week for week 10. documented in this encounter Plan of Treatment [...] Rate Site dexamethasone sodium (PF) 10 Given 01/20/2011 10:50 AM EDT 236 mL/hr mg, ondansetron (ZOFRAN) 16 mg in sodium chloride 0.9% 59 mL IVPB Intravenous, at 236 mL/hr, ONCE, On Delaney 01/20/11 at 1030, 1 dose famotidine (PEPCID) 20 mg, Given 01/20/2011 10:30 AM EDT 210 mL/hr diphenhydrAMINE (BENADRYL) 25 mg in sodium chloride 0.9% 52.5 mL IVPB Intravenous, at 210 mL/hr, ONCE, On Delaney 01/20/11 at 1030, 1 dose paclitaxel (TAXOL) 143 mg in New Bag 01/20/2011 11:30 AM EDT 143 m g 273.8 mL/hr dextrose 5% Non-PVC 273.8333 mL chemo infusion 143 mg, Intravenous, ONCE, 1 dose, On Delaney 01/20/11 at 1030, Administer over 1 Hours documented in this encounter Care Teams Warp Hanger Relationship Specialty Start Date End Date Javi Izaguirre DO PCP - General 06/22/[address] [place] [address] documented as of this encounter
--- OUTSIDE RECORDS SUMMARY | 2022-04-22 01:46 | XMS_ITS | Encounter Summary ---
:1945 Author Organization [facility] [place] [address] Care Team Providers Name Role Phone Javi Izaguirre DO Primary Care Provider Encounter Details Date Type Department Care Team Description 07/26/2010 Office [place] [phone] Social History Tobacco Use Types Packs/Day Years Used Date Never Assessed Sex Assigned at Date Recorded Female 03/31/2021 3:33 PM EDT documented as of this encounter Plan of Treatment Not on filedocumented as of this encounter Visit Diagnoses Not on filedocumented in this encounter Care Teams Commercial Lines Account Manager Relationship Specialty Start Date End Date Javi Izaguirre DO PCP - General 06/22/[address] [place] [address] documented as of this encounter
--- OUTSIDE RECORDS SUMMARY | 2022-04-22 01:46 | XMS_ITS | Encounter Summary ---
:1945 Author Organization [facility] [place] [address] Care Team Providers Name Role Phone Javi Izaguirre DO Primary Care Provider Encounter Details Date Type Department Care Team Description 10/14/2010 Office Visit Hematology Oncology at [facility], DR [address] H[facility] Steve Cuevas MD [address] [place] [address] [place] [phone] [address] [place] [phone] Social History Tobacco Use Types Packs/Day Years Used Date Never Assessed Sex Assigned at Date Recorded Female 03/31/2021 3:33 PM EDT documented as of this encounter Plan of Treatment Not on filedocumented as of this encounter Visit Diagnoses Not on filedocumented in this encounter Care Teams Threader Operator Relationship Specialty Start Date End Date Javi Izaguirre DO PCP - General 06/22/[address] [place], [place] [address] documented as of this encounter
--- OUTSIDE RECORDS SUMMARY | 2022-04-22 01:46 | XMS_ITS | Encounter Summary ---
:1945 Author Organization [facility] [place] [address] Care Team Providers Name Role Phone Javi Izaguirre DO Primary Care Provider Encounter Details Date Type Department Care Team Description 08/09/2010 Procedure visit [place] [address] Social History Tobacco Use Types Packs/Day Years Used Date Never Assessed Sex Assigned at Date Recorded Female 03/31/2021 3:33 PM EDT documented as of this encounter Plan of Treatment Not on filedocumented as of this encounter Visit Diagnoses Not on filedocumented in this encounter Care Teams Tailer Off Relationship Specialty Start Date End Date Javi Izaguirre DO PCP - General 06/22/[address] [place] [address] documented as of this encounter
--- OUTSIDE RECORDS SUMMARY | 2022-04-22 01:46 | XMS_ITS | Encounter Summary ---
:1945 Author Organization [facility] [place] [address] Care Team Providers Name Role Phone DmitriyJavi agrawal Primary Care Provider Reason for Visit Reason Comments Breast Cancer Taxol Cycle 4 Encounter Details Date Type Department Care Team Description 12/16/2010 Office Visit Hematology Oncology at [facility] of breast (Primary Dx); [facility] Malignant neoplasm of breast (female), unspecified site [address] [place] [phone] Social History Tobacco Use Types Packs/Day Years Used Date Never Smoker Sex Assigned at Date Recorded Female 03/31/2021 3:33 PM EDT documented as of this encounter Progress Notes Rosi Arevalo, RN - 12/16/2010 4:26 PM EDT INFUSION THERAPY ADMINISTRATION NOTES TIME TREATMENT STARTED: 1145 TIME TREATMENT ENDED: 5 DIAGNOSIS: Breast Ca CYCLE #: REASON FOR VISIT: Taxol SUBJECTIVE Sofía offers no complaints. OBJECTIVE LAB DATA: 12/16/10 WBC 3.66 Hg 11.7 Hct 34.9 Plat 260 ANC 2.46 HYDRATION, RATE, START TIME, STOP TIME NS @ KVO, 1150 Pre administration: Chemotherapy orders independently verified for drug name, route, and dosage per patient's height, weight and BSA by Rosi Arevalo and Zoila Carlos RN. At time of administration: Immediately prior to administration Rosi Arevalo RN and Romy Toscano, independently verified thepatient's identity using the patient's name and date of , and confirmed the drug name, dose, volume, route, expiration date/time and rate of administration delivered via IV pump. Consent for treatment verified in CIS. CHEMOTHERAPY, DOSE, ROUTE, START TIME, STOP TIME, REACTIONS (DESCRIPTION, TIME, INTERVENTION AND EFFECTIVENESS) none ASSESSMENT Sofía was awake, alert and he tolerated treatment well. PLAN Return to clinic next week for cycle 5 of 12. documented in this encounter Plan of Treatment [...] Rate Site dexamethasone sodium (PF) 10 Given 12/16/2010 12:20 PM EDT 236 mL/hr mg, ondansetron (ZOFRAN) 16 mg in sodium chloride 0.9% 59 mL IVPB Intravenous, at 236 mL/hr, ONCE, On Delaney 12/16/10 at 1130, 1 dose famotidine (PEPCID) 20 mg, Given 12/16/2010 12:00 PM EDT 210 mL/hr diphenhydrAMINE (BENADRYL) 25 mg in sodium chloride 0.9% 52.5 mL IVPB Intravenous, at 210 mL/hr, ONCE, On Delaney 12/16/10 at 1130, 1 dose paclitaxel (TAXOL) 143 mg in New Bag 12/16/2010 1:05 PM EDT 143 mg 273.8 mL/hr dextrose 5% Non-PVC 273.8333 mL chemo infusion 143 mg, Intravenous, ONCE, 1 dose, On Delaney 12/16/10 at 1130, Administer over 1 Hours documented in this encounter Care Teams Satellite Project Site Monitor Relationship Specialty Start Date End Date Javi Izaguirre DO PCP - General 06/22/[address] [place] [address] [address] [place] [address] documented as of this encounter
--- OUTSIDE RECORDS SUMMARY | 2022-04-22 01:46 | XMS_ITS | Encounter Summary ---
:1945 Author Organization [facility] [place] [address] Care Team Providers Name Role Phone Javi Izaguirre DO Primary Care Provider Reason for Visit Reason Comments Breast Cancer Taxol Infusion weekly, #2 of 12 plannned. Encounter Details Date Type Department Care Team Description 12/02/2010 Office Visit Hematology Oncology at [facility] of breast (Primary [facility] Dx) [address] [place] [address] Social History Tobacco Use Types Packs/Day Years Used Date Never Smoker Sex Assigned at Date Recorded Female 03/31/2021 3:33 PM EDT documented as of this encounter Progress Notes Zoila Carlos RN - 12/02/2010 12:54 PM EDT Diagnosis: Breast Cancer Treatment: Taxol #2 of 12 planned Patient tolerated taxol well, no complaints voiced. Mediport de-accessed and flushed with 20cc NS and 500 Units Heparin. Patient encouraged to call with any questions or concerns. documented in this encounter Plan of Treatment Not on filedocumented as of this encounter Visit Diagnoses Diagnosis Cancer of breast - Primary Malignant neoplasm of breast (female), u nspecified site documented in this encounter Administered Medications Inactive Administered Medications - up to 3 most recent administrations Medication Order MAR Action Action Date Dose Rate Site dexamethasone sodium (PF) 10 Given 12/02/2010 10:35 AM EDT 236 mL/hr mg, ondansetron (ZOFRAN) 16 mg in sodium chloride 0.9% 59 mL IVPB Intravenous, at 236 mL/hr, ONCE, On Delaney 12/02/10 at 1000, 1 dose famotidine (PEPCID) 20 mg, Given 12/02/2010 10:18 AM EDT 210 mL/hr diphenhydrAMINE (BENADRYL) 25 mg in sodium chloride 0.9% 52.5 mL IVPB Intravenous, at 210 mL/hr, ONCE, On Delaney 12/02/10 at 1000, 1 dose paclitaxel (TAXOL) 143 mg in New Bag 12/02/2010 10:55 AM EDT 143 m g 273.8 mL/hr dextrose 5% Non-PVC 273.8333 mL chemo infusion 143 mg, Intravenous, ONCE, 1 dose, On Delaney 12/02/10 at 1000, Administer over 1 Hours documented in this encounter Care Teams Radiology Equipment Servicer Relationship Specialty Start Date End Date Javi Izaguirre DO PCP - General 06/22/[address] [place] [address] documented as of this encounter
--- OUTSIDE RECORDS SUMMARY | 2022-04-22 01:46 | XMS_ITS | Encounter Summary ---
:1945 Author Organization [facility] [place] [address] Care Team Providers Name Role Phone Dmitriy Javi BURKS Primary Care Provider Encounter Details Date Type Department Care Team Description 10/28/2010 Follow-Up Hematology Oncology at [facility], Kiana E, SPLICER OPERATOR [address] [place] [address] [place], [place] [address] [phone] Social History Tobacco Use Types Packs/Day Years Used Date Never Assessed Sex Assigned at Date Recorded Female 03/31/2021 3:33 PM EDT documented as of this encounter Procedure Notes Provider, Scanning - 10/30/2010 9:49 AM EDTAssociated Order(s): DIAGNOSTIC RADIOLOGY SCAN documented in this encounter Plan of Treatment Not on filedocumented as of this encounter Procedures Procedure Name Priority Date/Time Associated Comments Diagnosis DIAGNOSTIC RADIOLOGY 10/30/2010 9:49 AM R esults for this SCAN EDT procedure are i n the results section. documented in this encounter Results DIAGNOSTIC RADIOLOGY SCAN (10/30/2010 9:49 AM EDT) Narrative 10/30/2010 9:53 AM EDT Procedure Note Provider, Scanning - 10/30/2010 9:49 AM EDT Scanning Provider MEDIA MGR SCAN EXT ORDR/RSLT documented in this encounter Visit Diagnoses Not on filedocumented in this encounter Care Teams Space Planner Relationship Specialty Start Date End Date Javi Izaguirre DO PCP - General 06/22/[address] [place] [address] documented as of this encounter
--- OUTSIDE RECORDS SUMMARY | 2022-04-22 01:46 | XMS_ITS | Encounter Summary ---
:1945 Author Organization [facility] [place] [address] Care Team Providers Name Role Phone Javi Izaguirre Primary Care Provider Encounter Details Date Type Department Care Team Description 07/19/2010 Orders Only Lab [facility] Jake Hall MD [facility] [place] [address] [place] [address] [phone] (Wo rk) Social History Tobacco Use Types Packs/Day Years Used Date Never Assessed Sex Assigned at Date Recorded Female 03/31/2021 3:33 PM EDT documented as of this encounter Plan of Treatment Not on filedocumented as of this encounter Procedures Procedure Name Priority Date/Time Associated Comments Diagnosis DIFFERENTIAL, Routine 07/19/2010 9:34 AM Results for this AUTOMATED EST procedure are i n the results section. CBC (WITH DIFF) Routine 07/19/2010 9:34 AM Result s for this EST procedure are i n the results section. COMPREHENSIVE Routine 07/19/2010 9:34 AM Results for this METABOLIC PANEL EST procedure ar e in (NON-FASTING) the results section. documented in this encounter Results (ABNORMAL) COMPREHENSIVE METABOLIC PANEL (NON-FASTING) (07/19/2010 9:34 AM EST) P athologist Signature Glucose Lvl 103 <=199 mg/dL CERNER MILLENNIUM Comment: Diabetes: >=200 mg/dL plus symp toms BUN 17 8 - 18 mg/dL CERNER MILLENNIUM Creatinine 0.72 0.70 - 1.20 mg/dL CERNER MILL ENNIUM Sodium 140 135 - 145 mmol/L CERNER YONNY NIUM Potassium 4.2 3.5 - 5.0 mmol/L CERNER YONNY NIUM Comment: Please note: ??Patients with WBC >100,00 0 may have falsely elevated Potassium levels. ??For accurate Potassium quantif ication in these patients send serum separator tube (gold top) for subsequent determinations. ??Contact the Clinical Chemistry Laboratory if there are any qu estions. Chloride 102 98 - 107 mmol/L CERNER MILLENN IUM CO2 26 22 - 31 mmol/L CERNER MILLENNI UM Anion Gap 12 5 - 15 mmol/L CERNER MILLENNIU M Calcium 9.6 8.5 - 10.5 mg/dL CERNER YONNY NIUM Total Protein 8.2 6.4 - 8.3 gm/dL CERNER MIL LENNIUM Albumin 4.2 3.2 - 5.2 gm/dL CERNER MILLENN IUM AST 28 0 - 30 unit/L CERNER MILLENNIU M ALT 36 (H) 0 - 30 unit/L CERNER MILLENNIU M Alk Phos 110 (H) 40 - 104 unit/L CERNER MILLENN IUM Total Bilirubin 0.4 0.2 - 1.3 mg/dL CERNER M ILLENNIUM Bili, Direct 0.1 0.0 - 0.3 mg/dL CERNER MILL ENNIUM Estimated GFR >60 >=60 CERNER MILLENNIU M Comment: The National Kidney Disease Education Pr ogram (NKDEP) has recommended all laboratories report estimated GFR (eGFR) along with plasma creatinine measurements to assist you with recognit ion of early kidney disease. Caveats: ??Plasma creatinine should be a t steady-state (unchanged within the past week). ??Patient age > = 18 years, and for Americans multiply eGFR by 1.2. At present, NKDEP does NOT recommend usi ng the MDRD equation for drug dosing purposes and pharmacists should continue to use their current dosing methods. In addition, numerical eGFR values great er than 60 ml/min/1.73 square meters should be treated as > 60, and not an ex act number due to greater inaccuracies at these higher values. Per NKDEP, they classify normal renal function as any GFR >60ml/min/1.73 square meters; chronic kidney disease wh en GFR <60, and renal failure when GFR <15. ??This calculation may not be valid for patients with atypical muscle mass (very lean or obese), acute renal failur e, and in patients with diabetic kidney disease. References: http://nkdep.nih.gov/resources/NKDEP_Sug gestn4Labs_0606_508.pdf http://www.kidney.org/professionals/kls/ pdf/faq_gfr.pdf Specimen Anatomical Collection Method Collection Time Receive d Time (Source) Location / / Volume Laterality Blood specimen 07/19/2010 9:34 AM 010 9:44 (specimen) EST AM EST Jake Diallo MD CHEMISTRY ORDERABLES Performing Organization Address City/State/[place] [address] CERNER MILLENNIUM (ABNORMAL) REFLEX LAB-A-DIFF (07/19/2010 9:34 AM EST) [facility] gist Method Time Signature Neutrophils % 71.6 (H) 34.0 - CERNER 71.0 % MILLENNIUM Neutr Abs (ANC) 5.77 1.50 - CERNER 6.30 MILLENNIUM x10(3)/mc L Lymphocytes % 20.1 19.0 - CERNER 53.0 % MILLENNIUM Lymphocytes Abs 1.6 1.0 - 3.6 CERNER x10(3)/mc MILLENNIUM L Monocytes % 6.2 4.0 - CERNER 13.0 % MILLENNIUM Monocyte Abs 0.5 0.2 - 1.0 CERNER x10(3)/mc MILLENNIUM L Eosinophils % 1.7 0.0 - 7.0 CERNER % MILLENNIUM Eosinophils Abs 0.1 0.0 - 0.5 CERNER x10(3)/mc MILLENNIUM L Basophils % 0.2 0.0 - 2.0 CERNER % MILLENNIUM Basophils Abs 0.0 0.0 - 0.2 CERNER x10(3)/mc MILLENNIUM L Immature Gran % 0.20 0.00 - CERNER 0.66 % MILLENNIUM Comment: Immature granulocytes(IG's)percentage an d absolute count will include metamyelocytes, myelocytes, and promyelo cytes. Blood smears from CBC's yielding IG's will be scanned manually for concor dance. If this scan disagrees with the automated IG or if promyelocytes are not ed, a manual differential will be performed. Tonya Gran Abs 0.02 0.00 - 0.05 x10(3)/mcL CER NER MILLENNIUM Specimen Anatomical Collection Method Collection Time Receive d Time (Source) Location / / Volume Laterality Blood specimen 07/19/2010 9:34 AM 010 9:44 (specimen) EST AM EST Jake Diallo MD HEMATOLOGY ORDERABLES Performing Organization Address City/State/ZIP Code Phon e Number [place] [phone] CERNER MILLENNIUM CBC (07/19/2010 9:34 AM EST) P athologist Signature WBC 8.1 4.0 - 10.0 CERNER x10(3)/mcL MILLENNIUM RBC 4.70 3.93 - 5.22 CERNER x10(6)/mcL MILLENNIUM Hemoglobin 14.4 11.2 - 15.7 CERNER gm/dL MILLENNIUM Hematocrit 42.6 34.0 - 45.0 CERNER % MILLENNIUM MCV 90.6 79.0 - 94.0 CERNER fL MILLENNIUM MCH 30.6 26.6 - 32.2 CERNER pg MILLENNIUM MCHC 33.8 32.0 - 36.5 CERNER gm/dL MILLENNIUM Platelets 332 145 - 370 CERNER x10(3)/mcL MILLENNIUM RDWSD 44.3 35.0 - 46.0 CERNER fL MILLENNIUM RDWCV 13.4 10.9 - 14.4 CERNER % MILLENNIUM MPV 9.8 9.0 - 12.0 CERNER fL MILLENNIUM Specimen Anatomical Collection Method Collection Time Receive d Time (Source) Location / / Volume Laterality Blood specimen 07/19/2010 9:34 AM 010 9:44 (specimen) EST AM EST Jake Diallo MD HEMATOLOGY ORDERABLES Performing Organization Address City/State/[place] [address] [facility] documented in this encounter Visit Diagnoses Not on filedocumented in this encounter Care Teams City Distribution Clerk Relationship Specialty Start Date End Date Javi Izaguirre DO PCP - General 06/22/[address] [place] [address] documented as of this encounter
--- OUTSIDE RECORDS SUMMARY | 2022-04-22 01:46 | XMS_ITS | Encounter Summary ---
:1945 Author Organization [place] [address] Care Team Providers Name Role Phone Javi Izaguirre DO Primary Care Provider Encounter Details Date Type Department Care Team Description 09/15/2010 [facility] [address] [facility] RADIATION ONCOLOGY [place], [place] [phone] Social History Tobacco Use Types Packs/Day Years Used Date Never Assessed Sex Assigned at Date Recorded Female 03/31/2021 3:33 PM EDT documented as of this encounter Plan of Treatment Not on filedocumented as of this encounter Visit Diagnoses Not on filedocumented in this encounter Care Teams Catalyst Unit Operator Relationship Specialty Start Date End Date Javi Izaguirre DO PCP - General 06/22/[address] [place] [address] documented as of this encounter
--- OUTSIDE RECORDS SUMMARY | 2022-04-22 01:46 | XMS_ITS | Encounter Summary ---
:1945 Author Organization [facility] [place] [address] Care Team Providers Name Role Phone Javi Izaguirre DO Primary Care Provider Reason for Visit Reason Comments Breast Cancer taxol # 7 Encounter Details Date Type Department Care Team Description 01/06/2011 Office Visit Hematology Oncology at [facility] DR [facility] Ca ncer of breast (Primary Dx); [facility] HEM/ONC Malignant neoplasm of breast (female), unspecified site [address] [place] [phone] Social History Tobacco Use Types Packs/Day Years Used Date Never Smoker Sex Assigned at Date Recorded Female 03/31/2021 3:33 PM EDT documented as of this encounter Progress Notes Nat Suresh RN - 01/06/2011 1:37 PM EDT INFUSION THERAPY ADMINISTRATION NOTES TIME TREATMENT STARTED: 1045 TIME TREATMENT ENDED: 1220 DIAGNOSIS: breast cancer PROTOCOL:na CYCLE #: 10 REASON FOR VISIT: weekly taxol SUBJECTIVE Sofía Mcdonald offers no complaints. OBJECTIVE LAB DATA: Labs reviewed and found adequate for treatment. IF PAIN IS >5, INTERVENTION AND EFFECTIVENESS: n/a HYDRATION, RATE, START TIME, STOP TIME NS @ KVO, Pre administration: Chemotherapy orders independently verified for drug name, route, and dosage per patient's height, weight and BSA by Daniel Suresh RN and Ashu Carlos RN. REACTIONS (DESCRIPTION, TIME, INTERVENTION AND EFFECTIVENESS) none ASSESSMENT Sofía Mcdonald was awake, alert and he tolerated treatment well. PLAN Return to clinic next week for week 11. documented in this encounter Plan of Treatment [...] Rate Site dexamethasone sodium (PF) 10 Given 01/06/2011 10:40 AM EDT 236 mL/hr mg, ondansetron (ZOFRAN) 16 mg in sodium chloride 0.9% 59 mL IVPB Intravenous, at 236 mL/hr, ONCE, On Delaney 01/06/11 at 1030, 1 dose famotidine (PEPCID) 20 mg, Given 01/06/2011 10:25 AM EDT 210 mL/hr diphenhydrAMINE (BENADRYL) 25 mg in sodium chloride 0.9% 52.5 mL IVPB Intravenous, at 210 mL/hr, ONCE, On Delaney 01/06/11 at 1030, 1 dose paclitaxel (TAXOL) 143 mg in New Bag 01/06/2011 11:15 AM EDT 143 m g 273.8 mL/hr dextrose 5% Non-PVC 273.8333 mL chemo infusion 143 mg, Intravenous, ONCE, 1 dose, On Delaney 01/06/11 at 1030, Administer over 1 Hours documented in this encounter Care Teams Optometric Assistant Relationship Specialty Start Date End Date Javi Izaguirre DO PCP - General 06/22/[address] [place] [address] documented as of this encounter
--- OUTSIDE RECORDS SUMMARY | 2022-04-22 01:46 | XMS_ITS | Encounter Summary ---
:1945 Author Organization [facility] [place] [address] Care Team Providers Name Role Phone Javi Izaguirre DO Primary Care Provider Encounter Details Date Type Department Care Team Description 10/14/2010 Follow-Up Hematology Oncology at [facility], Kiana E, EXERCISE MANAGER [address] [place] [address] [place], [place] [phone] Social History Tobacco Use Types Packs/Day Years Used Date Never Assessed Sex Assigned at Date Recorded Female 03/31/2021 3:33 PM EDT documented as of this encounter Plan of Treatment Not on filedocumented as of this encounter Visit Diagnoses Not on filedocumented in this encounter Care Teams Service Counselor Relationship Specialty Start Date End Date Javi Izaguirre DO PCP - General 06/22/[address] [place] [address] documented as of this encounter
--- OUTSIDE RECORDS SUMMARY | 2022-04-22 01:46 | XMS_ITS | Encounter Summary ---
:1945 Author Organization [facility] [place] [address] Care Team Providers Name Role Phone Dmitriy Javi BURKS Primary Care Provider Reason for Visit Reason Comments Breast Cancer Encounter Details Date Type Department Care Team Description 12/30/2010 Follow-Up Hematology Oncology at Antony Cuevas MD Breast cancer (Primary [address] Dx) [address] [place] [phone] Social History Tobacco Use Types Packs/Day Years Used Date Never Smoker Sex Assigned at Date Recorded Female 03/31/2021 3:33 PM EDT documented as of this encounter Last Filed Vital Signs Vital Sign Reading Time Taken Comments Blood Pressure 115/70 12/30/2010 11:04 AM EDT Pulse 64 12/30/2010 11:04 AM EDT Temperature 36.7 ??C (98.1 ??F) 12/30/2010 11:04 AM EDT Respiratory Rate 18 12/30/2010 11:04 AM EDT Oxygen Saturation 97% 12/30/2010 11:04 AM EDT Inhaled Oxygen Concentration - - Weight 73 kg (160 lb 15 oz) 12/30/2010 11:04 AM EDT Height 160.5 cm (5' 3.19) 12/30/2010 11:04 AM EDT Body Mass Index 28.34 12/30/2010 11:04 AM EDT documented in this encounter Progress Notes John Ojeda - 12/31/2010 2:47 PM EDT NYT Steve Cuevas MD - 12/30/2010 11:52 AM EDT DIAGNOSIS: Stage IIA (pT1c pN1 MX), IDC, low-grade, ER/TX positive, 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 Subjective: Sofía comes in today for consideration of week six chemotherapy with weekly Taxol in the adjuvant treatment of her stage II breast cancer. She is doing well with the treatment although is having a little bit of problems with some small mouth sores on occasion. Saline rinses are helping this. Additionally she's had some discomfort along the right clavicle with her port being placed on the left. She's having no associated swelling. Review systems is otherwise negative. Her primary doctor has checked the chest x-ray and right- click vehicular films today but results are not out yet. She is also been advised to avoid Ambien. She is using some lorazepam for sleep and I told her that was fine but perhaps she should occasionally skip an evening so she does not develop dependence on this. That is what she is doing. She is not having any numbness in her hands or feet. She is glad to be at the shelter point of this final part of chemotherapy. Past medical history and social history are reviewed and unchanged from when I saw her three weeks ago. Review of Systems Constitutional: Negative [...] and axillary nodes normal Neurologic: Normal Laboratory: CBC today shows a white count of 5.6 hemoglobin 12.2 platelet count to 84 and neutrophilcount of 4.38. CMP is reviewed and liver tests are normal and creatinine is 0.6. Assessment/Plan: The patient is tolerating her Taxol chemotherapy well. We will go ahead with today's treatment without change. The etiology of her vascular pain is unclear but I do not see any evidence for a problem with her port such as a clot. In this regard we will continue to treat this symptomatically and watch it. We will see her back next week with a CBC CMP and plans for week seven Taxol. She will let us know if problems develop in the interim. documented in this encounter Procedure Notes Provider, Scanning - 01/05/2011 12:27 PM EDTAssociated Order(s): SCAN DOC: CT SCAN Provider, Scanning - 12/31/2010 12:08 PM EDTAssociated Order(s): SCAN DOC: LAB documented in this encounter Plan of Treatment Not on filedocumented as of this encounter Procedures Procedure Name Priority Date/Time Associated Diagnosis Comme nts CT SCAN (SCAN) 01/05/2011 12:27 PM Result s for this EDT procedure are i n the results section . LAB SCAN 12/31/2010 12:08 PM Results for this EDT procedure are i n the results section . documented in this encounter Results SCAN DOC: CT SCAN (01/05/2011 12:27 PM EDT) Narrative 01/05/2011 12:35 PM EDT Procedure Note Provider, Scanning - 01/05/2011 12:27 PM EDT Scanning Provider MEDIA MGR SCAN EXT ORDR/RSLT SCAN DOC: LAB (12/31/2010 12:08 PM EDT) Narrative 12/31/2010 12:08 PM EDT Procedure Note Provider, Scanning - 12/31/2010 12:08 PM EDT Scanning Provider MEDIA MGR SCAN EXT ORDR/RSLT documented in this encounter Visit Diagnoses Diagnosis Breast cancer - Primary Malignant neoplasm of breast (female), u nspecified site documented in this encounter Care Teams Technical Sales Representatives Relationship Specialty Start Date End Date Javi Izaguirre DO PCP - General 06/22/[address] [place] [address] documented as of this encounter
--- OUTSIDE RECORDS SUMMARY | 2022-04-22 01:46 | XMS_ITS | Encounter Summary ---
:1945 Author Organization [facility] [place] [address] Care Team Providers Name Role Phone Javi Izaguirre DO Primary Care Provider Encounter Details Date Type Department Care Team Description 09/30/2010 Office Visit Hematology Oncology at [facility], [address] HEM/ONC [facility] Alberto Valiente MD [facility] [place] [address] [place] [phone] Social History Tobacco Use Types Packs/Day Years Used Date Never Assessed Sex Assigned at Date Recorded Female 03/31/2021 3:33 PM EDT documented as of this encounter Plan of Treatment Not on filedocumented as of this encounter Visit Diagnoses Not on filedocumented in this encounter Care Teams Meeting Specialist Relationship Specialty Start Date End Date Javi Izaguirre DO PCP - General 06/22/[address] [place] [address] documented as of this encounter
--- OUTSIDE RECORDS SUMMARY | 2022-04-22 01:46 | XMS_ITS | Encounter Summary ---
:1945 Author Organization [facility] [place] [address] Care Team Providers Name Role Phone Dmitriy Javi BURKS Primary Care Provider Reason for Visit Reason Comments Breast Cancer Encounter Details Date Type Department Care Team Description 01/27/2011 Follow-Up Hematology Oncology at Antony Cuevas MD Breast cancer (Primary [address] Dx) [address] [id number] [phone] Social History Tobacco Use Types Packs/Day Years Used Date Never Smoker Sex Assigned at Date Recorded Female 03/31/2021 3:33 PM EDT documented as of this encounter Last Filed Vital Signs Vital Sign Reading Time Taken Comments Blood Pressure 120/71 01/27/2011 11:29 AM EDT Pulse 62 01/27/2011 11:29 AM EDT Temperature 36.7 ??C (98.1 ??F) 01/27/2011 11:29 AM EDT Respiratory Rate 16 01/27/2011 11:29 AM EDT Oxygen Saturation 97% 01/27/2011 11:29 AM EDT Inhaled Oxygen Concentration - - Weight 73 kg (160 lb 15 oz) 01/27/2011 11:29 AM EDT Height 160.5 cm (5' 3.19) 01/27/2011 11:29 AM EDT Body Mass Index 28.34 01/27/2011 11:29 AM EDT documented in this encounter Progress Notes Steve Cuevas MD - 01/27/2011 12:07 PM EDT DIAGNOSIS: Stage IIA (pT1c pN1 MX), IDC, low-grade, ER/MT positive, 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 Subjective: Sofía comes in today for consideration of week of 12 weeks of weekly Taxol. She's continues to have very minimal neuropathy in her hands. She's noticed some dry itchy skin but no actual rash. She has had a few bug bites. Otherwise her main complaint is fatigue which does seem to be getting a bit worsewith each week. Past medical history and social history are otherwise unchanged. Review of Systems Constitutional: Negative for fever, chills, activity change, and unexpected weight change. HENT: Negative for sore throat, mouth sores and trouble swallowing. Eyes: Negative. Respiratory: Negative for cough, shortness of breath and wheezing. Cardiovascular: Negative for chest pain, palpitations and leg swelling. Gastrointestinal: Negative for nausea, vomiting, abdominal pain, diarrhea, constipation and abdominal distention. Genitourinary: Negative for dysuria and difficulty urinating. Musculoskeletal: Negative. Skin: Mild Itching. Neurological: Negative. Hematological: Negative for adenopathy. Head: [...] normal Neurologic: Normal Laboratory is reviewed today. White count is 5.3 hemoglobin 12.5 platelet count 312 neutrophil count4.2 CMP is completely normal Assessment/Plan: Sofía is doing well with her chemotherapy. Her counts are fine today and she is having minimal neuropathy. We'll go ahead with we can treatment. We have set her port removal for the 18 which is afterher final chemotherapy. We'll see her back next week with a CBC and CMP and plan on her next chemotherapy at that time. We'll check lab prior to that visit. She'll let us know if problems develop in the interim. documented in this encounter Procedure Notes Provider, Scanning - 01/27/2011 11:14 AM EDTAssociated Order(s): SCAN DOC: LAB documented in this encounter Plan of Treatment Not on filedocumented as of this encounter Procedures Procedure Name Priority Date/Time Associated Diagnosis Comme nts LAB SCAN 01/27/2011 11:14 AM Breast cancer Results for this EDT procedure are i n the results section . documented in this encounter Results SCAN DOC: LAB (01/27/2011 11:14 AM EDT) Narrative 01/27/2011 11:14 AM EDT Procedure Note Provider, Scanning - 01/27/2011 11:14 AM EDT Scanning Provider MEDIA MGR SCAN EXT ORDR/RSLT documented in this encounter Visit Diagnoses Diagnosis Breast cancer - Primary Malignant neoplasm of breast (female), u nspecified site documented in this encounter Care Teams Sales Management Intern Relationship Specialty Start Date End Date Javi Izaguirre DO PCP - General 06/22/[address] [place] [address] (work) documented as of this encounter
--- OUTSIDE RECORDS SUMMARY | 2022-04-22 01:46 | XMS_ITS | Encounter Summary ---
:1945 Author Organization [facility] [place] [address] Care Team Providers Name Role Phone Javi Izaguirre DO Primary Care Provider Reason for Visit Reason Comments Breast Cancer taxol # 8 Encounter Details Date Type Department Care Team Description 01/13/2011 Office Visit Hematology Oncology at [facility] of breast (Primary Dx); [facility] Malignant neoplasm of breast (female), unspecified site [address] [place] [address] Social History Tobacco Use Types Packs/Day Years Used Date Never Smoker Sex Assigned at Date Recorded Female 03/31/2021 3:33 PM EDT documented as of this encounter Progress Notes Nat Suresh RN - 01/13/2011 2:09 PM EDT INFUSION THERAPY ADMINISTRATION NOTES TIME TREATMENT STARTED: 1145 TIME TREATMENT ENDED: 1400 DIAGNOSIS: breast cancer PROTOCOL:na CYCLE #: week 8 REASON FOR VISIT: taxol SUBJECTIVE Sofía Mcdonald offers no complaints. [...] treatment well. PLAN Return to clinic per routine next week for week 9. documented in this encounter Plan of Treatment [...] Rate Site dexamethasone sodium (PF) 10 Given 01/13/2011 12:15 PM EDT 236 mL/hr mg, ondansetron (ZOFRAN) 16 mg in sodium chloride 0.9% 59 mL IVPB Intravenous, at 236 mL/hr, ONCE, On Delaney 01/13/11 at 1300, 1 dose famotidine (PEPCID) 20 mg, Given 01/13/2011 12:00 PM EDT 210 mL/hr diphenhydrAMINE (BENADRYL) 25 mg in sodium chloride 0.9% 52.5 mL IVPB Intravenous, at 210 mL/hr, ONCE, On Delaney 01/13/11 at 1300, 1 dose paclitaxel (TAXOL) 143 mg in New Bag 01/13/2011 12:45 PM EDT 143 m g 273.8 mL/hr dextrose 5% Non-PVC 273.8333 mL chemo infusion 143 mg, Intravenous, ONCE, 1 dose, On Delaney 01/13/11 at 1300, Administer over 1 Hours documented in this encounter Care Teams Quarter Section Ironer Relationship Specialty Start Date End Date Javi Izaguirre DO PCP - General 06/22/[address] [place] [address] documented as of this encounter
--- OUTSIDE RECORDS SUMMARY | 2022-04-22 01:46 | XMS_ITS | Encounter Summary ---
:1945 Author Organization [facility] [place] [address] Care Team Providers Name Role Phone Javi Izaguirre DO Primary Care Provider Reason for Visit Reason Comments Chemotherapy Taxol week 3 of 12 Encounter Details Date Type Department Care Team Description 12/09/2010 Office Visit Hematology Oncology at [facility] DR [facility] Ca ncer of breast (Primary Dx); [facility] HEM/ONC Malignant neoplasm of breast (female), unspecified site [address] [place] [phone] Social History Tobacco Use Types Packs/Day Years [...] Weight 71.9 kg (158 lb 8.2 oz) 12/07/2010 9:52 AM EDT Height 161 cm (5' 3.39) 12/07/2010 9:52 AM EDT Body Mass Index 27.74 12/07/2010 9:52 AM EDT documented in this encounter Progress Notes Romy Toscano RN - 12/09/2010 12:44 PM EDT INFUSION THERAPY ADMINISTRATION NOTES TIME TREATMENT STARTED: 1100 TIME TREATMENT ENDED: 1235 DIAGNOSIS: Breast Cancer PROTOCOL: no CYCLE #: 3 of 12 REASON FOR VISIT: Taxol infusion SUBJECTIVE Sofía Mcdonald offers no complaints. OBJECTIVE LAB DATA: Labs reviewed and found adequate for treatment. IF PAIN IS >5, INTERVENTION AND EFFECTIVENESS: n/a HYDRATION, RATE, START TIME, STOP TIME NS @ KVO, 1100 Pre administration: Chemotherapy orders independently verified for drug name, route, and dosage per patient's height, weight and BSA by Romy Toscano RN and Zoila Carlos RN. REACTIONS (DESCRIPTION, TIME, INTERVENTION AND EFFECTIVENESS) none ASSESSMENT Sofía Mcdonald was awake, alert and he tolerated treatment well. No blood return obtained from mediport. She has dye study on file which confirms placement of mediport. She states that she has only had blood return one time since placement of mediport. Flushes without any resistance and denies any burning, etc when normal saline infused. No complications noted at time of disconnect. PLAN Return to clinic next week for consideration of week 4 of taxol. documented in this encounter Plan [...] Rate Site dexamethasone sodium (PF) 10 Given 12/09/2010 11:12 AM EDT 236 mL/hr mg, ondansetron (ZOFRAN) 16 mg in sodium chloride 0.9% 59 mL IVPB Intravenous, at 236 mL/hr, ONCE, On Delaney 12/09/10 at 1030, 1 dose famotidine (PEPCID) 20 mg, Given 12/09/2010 11:37 AM EDT 210 mL/hr diphenhydrAMINE (BENADRYL) 25 mg in sodium chloride 0.9% 52.5 mL IVPB Intravenous, at 210 mL/hr, ONCE, On Delaney 12/09/10 at 1030, 1 dose paclitaxel (TAXOL) 143 mg in New Bag 12/09/2010 11:23 AM EDT 143 m g 273.8 mL/hr dextrose 5% Non-PVC 273.8333 mL chemo infusion 143 mg, Intravenous, ONCE, 1 dose, On Delaney 12/09/10 at 1030, Administer over 1 Hours documented in this encounter Care Teams Turpentiner Relationship Specialty Start Date End Date Javi Izaguirre DO PCP - General 06/22/[address] [place] [address] documented as of this encounter
--- OUTSIDE RECORDS SUMMARY | 2022-04-22 01:46 | XMS_ITS | Encounter Summary ---
:1945 Author Organization [place] [address] Care Team Providers Name Role Phone Javi Izaguirre DO Primary Care Provider Encounter Details Date Type Department Care Team Description 10/28/2010 Office Visit Hematology Oncology at [address] [phone] Social History Tobacco Use [...] Weight 74 kg (163 lb 2.3 oz) 10/26/2010 12:04 PM EDT Height 160.5 cm (5' 3.19) 10/26/2010 12:04 PM EDT Body Mass Index 28.73 10/26/2010 12:04 PM EDT documented in this encounter Plan of Treatment Not on filedocumented as of this encounter Visit Diagnoses Not on filedocumented in this encounter Care Teams Personal Service Representative Relationship Specialty Start Date End Date Javi Izaguirre DO PCP - General 06/22/[address] [place] [address] documented as of this encounter
--- OUTSIDE RECORDS SUMMARY | 2022-04-22 01:46 | XMS_ITS | Encounter Summary ---
:1945 Author Organization [facility] [address] Care Team Providers Name Role Phone Javi Izaguirre DO Primary Care Provider Encounter Details Date Type Department Care Team Description 09/21/2010 Follow-Up Orthopaedics at [facility] Carlos Silveira MD [facility] [place] [place] [phone] ORTHOPAEDIC SURGERY [phone] [place], [place] [address] (Wo rk) Social History Tobacco Use Types Packs/Day Years Used Date Never Assessed Sex Assigned at Date Recorded Female 03/31/2021 3:33 PM EDT documented as of this encounter Plan of Treatment Not on filedocumented as of this encounter Visit Diagnoses Not on filedocumented in this encounter Care Teams First Aid Officer Relationship Specialty Start Date End Date Javi Izaguirre DO PCP - General 06/22/[address] [place] [address] documented as of this encounter
--- OUTSIDE RECORDS SUMMARY | 2022-04-22 01:46 | XMS_ITS | Encounter Summary ---
:1945 Author Organization [facility] [place] [address] Care Team Providers Name Role Phone Javi Izaguirre DO Primary Care Provider Encounter Details Date Type Department Care Team Description 12/06/[address] [place] [phone] Social History Tobacco Use Types Packs/Day [...] Priority Date/Time Associated Diagnosis Comme nts CT UPPER EXTREMITY Routine 12/06/2010 10:28 AM Re sults for this WO CONTRAST EDT procedure are i n the results section. documented in this encounter Results CT UPPER EXTREMITY WO CONTRAST (12/06/2010 10:28 AM EDT) Anatomical Region Laterality Modality Shoulder, Arm, Elbow, Forearm, Wrist, Hand Computed Tomography Specimen (Source) Anatomical Collection Method Collection Time Re ceived Time Location / / Volume Laterality 12/06/2010 10:28 AM EDT Impressions 12/07/2010 11:47 AM EDT IMPRESSION: ?? 1. 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 2. 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 3. ??Negative for intraarticular screw. 4. ??Previous surgical removal of the tr apezium. 5. ??Intercarpal arthropathic changes as described. ?? Film and interpretation reviewed by the attending Narrative 12/07/2010 11:[address] OF THE RIGHT WRIST, 12/06/10: CLINICAL INDICATION: ?? Distal radial fr acture status post open reduction and internal fixation. ??Evaluate for healin g. ??Rule out intraarticular screw. COMPARISON: ??comparison made to most re cent radiograph of the wrist of 09/21/10. ??Multiple prior radiographs o f the wrist and hand are available as well. TECHNIQUE: ??Unenhanced CT of the right wrist was performed. ??Multiplanar reformatted images were performed at the radiological technologist's workstation and 3D reformatted images were performed on a s eparate workstation. FINDINGS: ??The distal radial fracture i s predominantly united. ??There continues to be some partial union of the dorsal u lnarmost distal radial fragment. ??There is no intraarticular screw. ??Alignment is unchanged from previous examinations. ?? There continues to be an ununited ulnar styloid fracture. The trapezium has been surgically remove d and there is partial ankylosis of the trapezoid and capitate bones. ??Arthropa thic changes are present throughout the wrist. ??There is a small subcortical cy st in the dorsal aspect of the lunate and the trapezoidal scaphoid joint is na rrowed with cortical sclerosis. Procedure Note Norm Sandoval MD - 12/07/2010Formattin g of this note might be different from the original. CT OF THE RIGHT WRIST, 12/06/10: CLINICAL INDICATION: Distal radial fract ure status post open reduction and internal fixation. Evaluate for healing. Rule out intraarticular screw. COMPARISON: comparison made to most rece nt radiograph of the wrist of 09/21/10. Multiple prior radiographs of the wrist and hand are available as well. TECHNIQUE: Unenhanced CT of the right wr ist was performed. Multiplanar reformatted images were performed at the radiological technologist's workstation and 3D reformatted images were performed on a s [employer] workstation. FINDINGS: The distal radial fracture is predominantly united. There continues to be some partial union of the dorsal u lnarmost distal radial fragment. There is no intraarticular screw. Alignment is unchanged from previous examinations. There continues to be an ununited ulnar styloid fracture. The trapezium has been surgically remove d and there is partial ankylosis of the trapezoid and capitate bones. Arthropath ic changes are present throughout the wrist. There is a small subcortical cyst in the dorsal aspect of the lunate and the trapezoidal scaphoid joint is na rrowed with cortical sclerosis. IMPRESSION IMPRESSION: 1. Distal radial fracture demonstrates n ear-complete osseous bridging. 2. Continued nonunion of an ulnar styloi d fracture. 3. Negative for intraarticular screw. 4. Previous surgical removal of the trap ezium. 5. Intercarpal arthropathic changes as d escribed. Film and interpretation reviewed by the attending Carlos Silveira MD IMG CT ORDERABLES documented in this encounter Visit Diagnoses Not on filedocumented in this encounter Care Teams Endoscopic Technician Relationship Specialty Start Date End Date Javi Izaguirre DO PCP - General 06/22/[address] [place] [address] documented as of this encounter
--- OUTSIDE RECORDS SUMMARY | 2022-04-22 01:46 | XMS_ITS | Encounter Summary ---
:1945 Author Organization [facility] [address] Care Team Providers Name Role Phone Javi Izaguirre DO Primary Care Provider Encounter Details Date Type Department Care Team Description 07/21/2010 Follow-Up Hematology and Oncol ogy at [facility] Lilian Mirza, [place] [phone] Social History Tobacco Use Types Packs/Day Years Used Date Never Assessed Sex Assigned at Date Recorded Female 03/31/2021 3:33 PM EDT documented as of this encounter Plan of Treatment Not on filedocumented as of this encounter Visit Diagnoses Not on filedocumented in this encounter Care Teams Elevator Pilot Relationship Specialty Start Date End Date Javi Izaguirre DO PCP - General 06/22/[address] [place] [address] documented as of this encounter
--- OUTSIDE RECORDS SUMMARY | 2022-04-22 01:46 | XMS_ITS | Encounter Summary ---
:1945 Author Organization [facility] [place] [address] Care Team Providers Name Role Phone Javi Izaguirre Primary Care Provider Encounter Details Date Type Department Care Team Description 09/29/2010 Hospital Encounter Laboratory Steve Cuevas MD [address] [phone] (Wo rk) Social History Tobacco Use Types Packs/Day Years Used Date Never Assessed Sex Assigned at Date Recorded Female 03/31/2021 3:33 PM EDT documented as of this encounter Plan of Treatment Not on filedocumented as of this encounter Procedures Procedure Name Priority Date/Time Associated Comments Diagnosis DIFFERENTIAL, STAT 09/29/2010 10:58 Results fo r this AUTOMATED AM EST procedure are i n the results section. CBC (WITH DIFF) STAT 09/29/2010 10:58 Results for this AM EST procedure are i n the results section. COMPREHENSIVE STAT 09/29/2010 10:58 Results fo r this METABOLIC PANEL AM EST procedure ar e in (NON-FASTING) the results section. documented in this encounter Results REFLEX LAB-A-DIFF (09/29/2010 10:58 AM EST) P athologist Signature Neutrophils % 66.6 34.0 - CERNER 71.0 % MILLENNIUM Neutr Abs (ANC) 5.81 1.50 - CERNER 6.30 MILLENNIUM x10(3)/mcL Lymphocytes % 23.1 19.0 - CERNER 53.0 % MILLENNIUM Lymphocytes Abs 2.0 1.0 - 3.6 CERNER x10(3)/mcL MILLENNIUM Monocytes % 7.6 4.0 - 13.0 CERNER % MILLENNIUM Monocyte Abs 0.7 0.2 - 1.0 CERNER x10(3)/mcL MILLENNIUM Eosinophils % 2.3 0.0 - 7.0 CERNER % MILLENNIUM Eosinophils Abs 0.2 0.0 - 0.5 CERNER x10(3)/mcL MILLENNIUM Basophils % 0.3 0.0 - 2.0 CERNER % MILLENNIUM Basophils Abs 0.0 0.0 - 0.2 CERNER x10(3)/mcL MILLENNIUM Immature Gran % 0.10 0.00 - CERNER [...] Location / / Volume Laterality Blood specimen 09/29/2010 10:58 1 (specimen) AM EST 11:06 AM EST Steve Cuevas MD HEMATOLOGY ORDERABLES Performing Organization Address City/State/[place] [address] CERNER MILLENNIUM (ABNORMAL) CBC (09/29/2010 10:58 AM EST) athologist Signature WBC 8.7 4.0 - 10.0 CERNER x10(3)/mcL MILLENNIUM RBC 4.99 3.93 - CERNER 5.22 MILLENNIUM x10(6)/mcL Hemoglobin 15.4 11.2 - CERNER 15.7 gm/dL MILLENNIUM Hematocrit 45.8 (H) 34.0 - CERNER 45.0 % MILLENNIUM MCV 91.8 79.0 - CERNER 94.0 fL MILLENNIUM MCH 30.9 26.6 - CERNER 32.2 pg MILLENNIUM MCHC 33.6 32.0 - CERNER 36.5 gm/dL MILLENNIUM Platelets 261 145 - 370 CERNER x10(3)/mcL MILLENNIUM RDWSD 47.6 (H) 35.0 - CERNER 46.0 fL MILLENNIUM RDWCV 14.1 10.9 - CERNER 14.4 % MILLENNIUM MPV 10.1 9.0 - 12.0 CERNER fL MILLENNIUM Specimen Anatomical Collection Method Collection Time Receive d Time (Source) Location / / Volume Laterality Blood specimen 09/29/2010 10:58 1 (specimen) AM EST 11:06 AM EST Steve Cuevas MD HEMATOLOGY ORDERABLES Performing Organization Address City/State/[place] [address] CERNER MILLENNIUM COMPREHENSIVE METABOLIC PANEL (NON-FASTING) (09/29/2010 10:58 AM EST) athologist Signature Glucose Lvl 104 60 - 199 CERNER mg/dL MILLENNIUM Comment: Diabetes: >=200 mg/dL plus symp toms BUN 18 8 - 18 mg/dL CERNER MILLENNIUM Creatinine 0.77 0.70 - 1.20 mg/dL CERNER MILL ENNIUM [...] - 107 mmol/L CERNER MILLENN IUM CO2 28 22 - 31 mmol/L CERNER MILLENNI UM Anion Gap 10 5 - 15 mmol/L GERARDO SMITHIU M Calcium 9.5 8.5 - 10.5 mg/dL GERARDO STILESEN NIUM Total Protein 8.2 6.4 - 8.3 gm/dL GERARDO MIL LENNIUM Albumin 4.3 3.2 - 5.2 gm/dL CERSHERITA STILESENN IUM AST 30 0 - 30 unit/L CERNER GOENNIU M ALT 27 0 - 30 unit/L CERNER GOENNIU M Alk Phos 101 40 - 104 unit/L CERNER MILLENN IUM Total Bilirubin 0.4 0.2 - 1.3 mg/dL GERARDO M ILLENNIUM Bili, Direct 0.1 0.0 - 0.3 mg/dL GERARDO MILL ENNIUM Estimated GFR >60 >=60 GERARDO SMITHIU M Comment: The National Kidney Disease Education [...] Location / / Volume Laterality Blood specimen 09/29/2010 10:58 1 (specimen) AM EST 11:06 AM EST Steve Cuevas MD CHEMISTRY ORDERABLES Performing Organization Address City/State/ZIP Code Phon e Number [place] [phone] [facility] documented in this encounter Visit Diagnoses Not on filedocumented in this encounter Care Teams Occupational Health Nurse Relationship Specialty Start Date End Date Javi Izaguirre DO PCP - General 06/22/[address] [place] [address] documented as of this encounter
--- OUTSIDE RECORDS SUMMARY | 2022-04-22 01:46 | XMS_ITS | Encounter Summary ---
:1945 Author Organization [facility] [place] [address] Care Team Providers Name Role Phone Dmitriy, Javi BURKS Primary Care Provider Reason for Visit Reason Comments Breast Cancer Encounter Details Date Type Department Care Team Description 01/13/2011 Follow-Up Hematology Oncology at Antony Cuevas MD Breast cancer (Primary [address] Dx) [address] [place] [id number] [phone] Social History Tobacco Use Types Packs/Day Years Used Date Never Smoker Sex Assigned at Date Recorded Female 03/31/2021 3:33 PM EDT documented as of this encounter Last Filed Vital Signs Vital Sign Reading Time Taken Comments Blood Pressure 117/58 01/13/2011 10:48 AM EDT Pulse 63 01/13/2011 10:48 AM EDT Temperature 36.7 ??C (98.1 ??F) 01/13/2011 10:48 AM EDT Respiratory Rate 18 01/13/2011 10:48 AM EDT Oxygen Saturation 98% 01/13/2011 10:48 AM EDT Inhaled Oxygen Concentration - - Weight 73.5 kg (162 lb 0.6 oz) 01/13/2011 10:48 AM EDT Height 160.5 cm (5' 3.19) 01/13/2011 10:48 AM EDT Body Mass Index 28.53 01/13/2011 10:48 AM EDT documented in this encounter Progress Notes Steve Cuevas MD - 01/13/2011 10:41 AM EDT DIAGNOSIS: Stage IIA (pT1c pN1 MX), IDC, low-grade, ER/SD positive, 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 Subjective: Sofía comes in today for consideration of week eight chemotherapy with weekly Taxol in the adjuvant treatment of her stage II breast cancer. She is continuing to tolerate the chemotherapy well althoughdoes note some compromise of her ability to go on long walks. She is not having any neuropathy except for an occasional sharp pain in her feet at night but she notes she had this prior to having the chemotherapy. She is in good spirits and looking forward to the end of her treatment in about a month. She will then go on to radiation therapy to be followed by an aromatase inhibitor. He spent some timetoday talking about long-term followup of breast cancer and the importance of aromatase inhibitors along with her side effects. Past medical history and social history are unchanged from a week ago. Review of Systems Constitutional: Negative for [...] Laboratory is reviewed today. White count is 3.5 hemoglobin 12.1 platelets 302 absolute neutrophil count is 2.58 CMP is completely normal Assessment/Plan: The patient is ready for week 8 of 12 planned Taxol chemotherapy is given on a weekly basis. We'll go ahead with treatment today and see her back with a CBC and CMP next week for #9. No dose changes are made. She will call if problems develop in the interim. documented in this encounter Procedure Notes Provider, Scanning - 01/13/2011 3:40 PM EDTAssociated Order(s): SCAN DOC: LAB documented in this encounter Plan of Treatment Not on filedocumented as of this encounter Procedures Procedure Name Priority Date/Time Associated Diagnosis Comme nts LAB SCAN 01/13/2011 3:40 PM Results f or this EDT procedure are i n the results section . documented in this encounter Results SCAN DOC: LAB (01/13/2011 3:40 PM EDT) Narrative 01/13/2011 3:40 PM EDT Procedure Note Provider, Scanning - 01/13/2011 3:40 PM EDT Scanning Provider MEDIA MGR SCAN EXT ORDR/RSLT documented in this encounter Visit Diagnoses Diagnosis Breast cancer - Primary Malignant neoplasm of breast (female), u nspecified site documented in this encounter Care Teams Gamma Ray Operator Relationship Specialty Start Date End Date Javi Izaguirre DO PCP - General 06/22/[address] [place] [address] documented as of this encounter
--- OUTSIDE RECORDS SUMMARY | 2022-04-22 01:46 | XMS_ITS | Encounter Summary ---
:1945 Author Organization [facility] [place] [address] Care Team Providers Name Role Phone Javi Izaguirre DO Primary Care Provider Reason for Visit Reason Comments Follow Up Surgery libra TKA DOS Encounter Details Date Type Department Care Team Description 12/06/2010 Office Visit Orthopaedics at [facility], Knee arthroplasty [facility] Shilpi Menendez APRN (Primary Dx) [place] [address] [place] [address] ORTHOPAEDIC SURGERY [place] [address] Social History Tobacco Use Types Packs/Day Years Used Date Never Smoker Sex Assigned at Date Recorded Female 03/31/2021 3:33 PM EDT documented as of this encounter Progress Notes Shilpi Chanel APRN - 12/06/2010 12:38 PM EDT DATE OF SERVICE: 12/06/2010 PERTINENT SURGICAL HISTORY: 1. 1996 right total knee at outside facility. 2. 12/12/2005 left total knee arthroplasty by Dr. Lau. SUBJECTIVE: Sofía has had a busy year, unfortunately she was diagnosed with grade II stage II breast cancer in June. She also fractured her right wrist in June and she has been under the care of Dr. Silveira who just released her today, it has healed beautifully. She is now on chemo, has a MediPort and is really slowing her down. She is not really suffering with nausea, it is more of fatigue so she has not been exercising as much as she used to. She has no complaints really at all about the knees. When she initially began her chemo, she had a quite a bit of muscle achiness in both legs, this has since disappeared. She is due to finish up on her chemo over the summer. She is back just for her usual rotary follow up. She is using no assistive devices to get around. She is taking no medication regularly for discomfort really for the joints. She has nothing else really to report today. OBSERVED: Sofía reports back in no apparent distress. Her position changes are brisk. She looks well. She tells me she is tired, but does not appear so today. Her gait is smooth and symmetrical without use of assistive device. She has full extension in the bilateral knees. The left knee, she flexes to 134 degrees, the right to 126. She has a little play to varus stress testing in the right knee only. She is solid to valgus stress testing. The left knee is solid to varus or valgus stress testing. Both knees are stable at the AP plane. There is no heat, erythema, or fusion in either. She has soft calves. No peripheral edema. Peripheral pulses are 2+ and sensation is normal throughout the lower extremities to light touch. X-RAYS: Both implants are intact bilaterally on the x-ray. She does have some scalloping what appears to be some mild osteolysis of the tibia, which is grossly compared with films today to 2006 films. We also see some area that looks like a little osteolytic at the distal turbinates of the lateral most lateral screw in the fibula on the right knee only. ASSESSMENT: 1. Stable total joints. 2. Question osteolysis right knee 14-year-old implant. PLAN: We will schedule a CAT scan for on her when her chemotherapy is completed. She tells me her prognosis is good in regards to her breast cancer, but there were some microscopic positive results thus by recommending chemo and first they did not think she would need it. She would like that out of the way before she does need testing on the knee. She is hoping to be better so she can ski next year, so hopefully we will find too much osteolysis on the CAT scan. We will get back to her bilateral, once we have her CAT scan I will set up a follow up appointment until the CAT scan is done. I gave her contact information in case she does not hear from us within a week to ten days after the CAT scan is done to let us know that it was completed. We also reviewed her total joint precautions. documented in this encounter Plan of Treatment Not on filedocumented as of this encounter Visit Diagnoses Diagnosis Knee arthroplasty - Primary Knee joint replacement by other means documented in this encounter Care Teams Chef Passenger Vessel Relationship Specialty Start Date End Date Javi Izaguirre DO PCP - General 06/22/[address] [place] [address] documented as of this encounter
--- OUTSIDE RECORDS SUMMARY | 2022-04-22 01:46 | XMS_ITS | Encounter Summary ---
:1945 [place] [address] Care Team Providers Name Role Phone Javi Izaguirre Primary Care Provider Encounter Details Date Type Department Care Team Description 08/09/2010 Orders Only Lab [facility] Mehul Hall MD [facility] [place] [address] [place] [address] [phone] (Wo rk) Social History Tobacco Use Types Packs/Day Years Used Date Never Assessed Sex Assigned at Date Recorded Female 03/31/2021 3:33 PM EDT documented as of this encounter Plan of Treatment Not on filedocumented as of this encounter Procedures Procedure Name Priority Date/Time Associated Diagnosis Comme nts SURGICAL PATHOLOGY Routine 08/09/2010 1:02 PM Res ults for this REPORT EST procedure are i n the results section. documented in this encounter Results PATHOLOGY SURGICAL PATHOLOGY FINAL REPORT (08/09/2010 1:02 PM EST) Component Value Ref Test Analysis Performed At [facility] gist Range Method Time Signature Surgical CERNER Pathology ? [facility] Report ? Provider: ?? MEHUL ROLLE Pt. Name: ?? SOFÍA LUX ? Acc #: ?[id number] ?Pt. MRN: ?[id number] ? Col Date: ?? 1 ? /Sex: ?1945,(64 years),Female ? Rec Date: ?? 08/09/2010 ? LOC: ?SDP ? SURGICAL PATHOLOGY ? ---Pathologic Diagnosis--- ? CORRECTED REPORT (see Comment) ? A and B - ? Specimen (s): ??Left, breast, partial mastectomy ? Histologic Type: Invasive ductal carcinoma ? Tumor Grade: ??Low ? Iehlkm-Mowks-Slgblnthuz Score: ??5 ?Tubular Differentiation: ?? 2 ?Mitotic Rate: ?? 1 ?Nuclear Grade: ??2 ? Tumor Size: ?? 1.7 cm, slide measure B8 (maximum diam eter) ? In Situ Histologic Type: Ductal carcinoma in situ, ?lobular carcinoma in situ, conventional type ??- ? see comment ? Extensive/Minor Component: ??Minor ? DCIS Size Estimate: ??N/A ?(if extensive DCIS) ?Grade: ?? Intermediate DCIS ?Necrosis: ??Absent in DCIS ?Pattern(s): ??Papillary, micropapillary DCIS pat terns ? Microcalcifications: ??Rare, associated with adenosis ? Angiolymphatic Invasion: Not identified ? Perineural invasion: Not identified ? Nipple involvement: ?? N/A ? Skin/Skeletal muscle invasion: N/A ? Other Findings: Extensive healing biopsy site changes ? Resection Margins (RM): ?Invasive Ca: ?? Uninvolved, but close ? Distance from closest RM(s): ??Less than 0.1 cm to the nearest ? green/caudal RM (B8) ?DCIS: ? Uninvolved, but close ? Distance from closest RM(s): ??0.1 cm to the ne arest green/ ? ca udal RM (B8) ?Nipple margin: ??N/A ? (if nipple sparing mastectomy) ? Axillary lymph nodes: ? Total no. nodes sampled: ?1 ? No. non-sentinel nodes: ?0 ? No. positive for carcinoma: ??N/A ??(H&E stain onl y) ? [facility] ? Provider: ?? MEHUL ROLLE Pt. Name: ?? SOFÍA LUX ? Acc #: ?[id number] ?Pt. MRN: ?[id number] ? Col Date: ?? 1 ? /Sex: ?1945,(64 years),Female ? Rec Date: ?? 08/09/2010 ? LOC: ?SDP ? SURGICAL PATHOLOGY ? No. sentinel nodes: ??1 ??(Specimen A)(H&E and IHC , see note*) ?No. with metastases 0.02 cm or less (isolated tu mor cells) 0 ?No. with metastases >0.02 cm to 0.2 cm (micromet astases) 1 ?No. with metastases >0.2 cm (macrometastases) 0 ? Total no. nodes negative for carcinoma: ??0 ? For positive nodes: ? Largest aleta deposit ?? 0.15 cm (A1) ? Extranodal extension ?No ? Estrogen/Progestin receptors: ?? Performed on block B 8 ?ER immunoreactivity: ? Positive (see Diagnostic herman*) ?NM immunoreactivity: ? Positive (see Diagnostic herman*) ? HER2/ricardo expression by FISH: ?See separate report ? pTNM: ---pT1c N1mi MX (AJCC, 7th edition, 2010) ?- - - - - - - - - - - - - - - - - - - - - - - - - - - - - ? *Diagnostic herman for hormone receptors (ASCO/CAP GUIDE LINES, 2010): ? Negative immunoreactivity: <1% tumor cells wi th immunostaining ? Positive immunoreactivity: >1% tumor cells wi th immunostaining ? NOTE: ??The clinical significance of cytokeratin (CK) only immunoreactivity ? in a sentinel node is currently unknown. IHC for CKAE1/3 was performed ? after initial screen and detection of micromet on H&E . ??The ? immunohistochemical s tudies provide ancillary information and are used only ? in conjunction with standard diagnostic procedures. ? CR-0 ? 08/12/10 ? CCB ? 08/31/10 Verified by: ? Melony Dean DO ? Pathologist ? (Electronic Si gnature) ? The attending pathologist whose signature appears o n this report has ? reviewed all diagnostic slides and has edited the joseph ss and/or ? microscopic portion of the report in rendering the fi nal pathologic ? diagnosis. ? [facility] ? Provider: ?? MEHUL ROLLE Pt. Name: ?? SOFÍA LUX ? Acc #: ?[id number] ?Pt. MRN: ?[id number] ? Col Date: ?? 1 ? /Sex: ?1945,(64 years),Female ? Rec Date: ?? 08/09/2010 ? LOC: ?SDP ? SURGICAL PATHOLOGY ? ---Comment--- ? The LCIS is at the medial/deep RM in tissue slide B16 . ? Correction ? Note: ??At the time o f examination of the re-excision specimen ([id number]), ? this case was re-revi ewed a third time. ??A new measure of the main tumor is ? taken on slide B8. ?? Please see the addendum #2 discussion. The tumor size ? and tumor staging are changed. ??There are no other changes to the text of ? this report. ? 08/31/10 12:12 Vianca Rojo ? ---Microscopic Description--- ? Slides reviewed, microscopic description not recorded . ? Immunohistochemistry Studies: ? Formalin-fixed, paraf fin-embedded tissue sections are studied using the B- ? SA system technique w ith appropriate positive and negative controls. ??These ? IHC studies provide t he pathologist with adjunctive diagnostic information. ? Antibody specificity has been verified by testing antibodies on a series of ? in-house tissues with known immunohistochemical perfo rmance ? characteristics. The clinical interpretation of any antibody positive ? staining or its absence is evaluated within the luis manuel xt of clinical ? presentation, morphol ogy, ??histopathological criteria and other diagnostic ? tests. ? Block ?Antibody ? Result (Posi tive/Negative) ? B6 ?e-cadhe rin ?Negative in LCIS. ??Positive in DCIS. ? B3 ?calponin ?Negative i n invasion. ? ---Gross Description--- ? A - Labeled/Fixative: Labeled with the patient's name, axillary sentinel ? lymph node, left; fr esh. ? Qty/Size/Weight: ?One, 4.0 x 3.0 x 1.0 cm. ? Tissue Description: ?? Yellow, lobular adipose tissue . ??Sectioning ? reveals one lymph node, 2.0 cm in greatest dimension. ? Sections/Processing: ??The lymph node is bisected and submitted in (A1-A2). ?(R2) ? B - Labeled/Fixative: Labeled with the patient's name, partial mastectomy, ? left; fresh. ? Qty/Size/Weight: ?One, 8.0 x 8.0 x 2.0 cm. ? Radiograph: ? Received. ??There is a metal clip near the tip of the ? wire. ??Written in black is clip. ??There is a word ? that is illegible. ? Tissue Description: ?? According to the establi shed protocol, the ink ? [facility] ? Provider: ?? MEHUL ROLLE Pt. Name: ?? SOFÍA LUX ? Acc #: ?[id number] ?Pt. MRN: ?[id number] ? Col Date: ? /Sex: ?1945,(64 years),Female ? Rec Date: ?? 08/09/2010 ? LOC: ?SDP ? SURGICAL PATHOLOGY ? designations are red (medial), yellow (lateral), ? orange (cranial), green (caudal), black (deep), and ? blue (superficial). ? Tissue Sections: ?The specimen is serially sectioned perpendicular to ? the long axis from red (medial) to yellow (lateral) ? into nine slices, each averaging 0.5 cm to 1.0 cm in ? thickness. ? Lesion: ? There is an area that shows some increased fibrotic, ? white tissue, ill defined but is approximately ? 3.5 x 2.0 x 1.0 cm. ?Locatio n: ?In slice II-IV. ??The tip of the wire is in ? slice II, and the clip is in slice III. ?Nearest margin: ?Appears to be red/ medial, . ?Other: ? 0.5-to-ay-diameter hemorrhage in slice III. ? Parenchyma: ? Composed of fibrofatty etienne ast tissue. ? Wire/Clip: ?The tip of the wire is in slice II, and the clip is ? in slice III. ? Sections/Processing: ??(1-2) sections of slice II; (3-6) slice III; (7-11) ? section of slice IV; (12-15) section of slice V; (16) ? section of slice I (en-face); (17-18) section of ? slice IX (en-face). ? (R18) ??aje/AB ? ---Clinical Information--- ? Specimen Submitted: ? A - Axillary sentinel node, left ? B - Partial mastectomy, left ? Clinical History: ? Not provided ? Clinical Diagnosis: ? Left breast cancer Specimen (Source) Anatomical Collection Method Collection Time Re ceived Time Location / / Volume Laterality 08/09/2010 1:02 PM EST Mehul Rolle MD PATHOLOGY/CYTOLOGY ORDERABLE S Performing Organization Address City/State/[place] [address] [facility] documented in this encounter Visit Diagnoses Not on filedocumented in this encounter Care Teams Core Manager Relationship Specialty Start Date End Date Javi Izaguirre DO PCP - General 06/22/[address] [place] [address] documented as of this encounter
--- OUTSIDE RECORDS SUMMARY | 2022-04-22 01:46 | XMS_ITS | Encounter Summary ---
:1945 Author Organization [facility] [place] [address] Care Team Providers Name Role Phone Javi Izaguirre DO Primary Care Provider Encounter Details Date Type Department Care Team Description 07/21/2010 Office Visit General Surgery Jake Diallo MD [facility] [place] [address] [place] [address] (Wo rk) Social History Tobacco Use Types Packs/Day Years Used Date Never Assessed Sex Assigned at Date Recorded Female 03/31/2021 3:33 PM EDT documented as of this encounter Plan of Treatment Not on filedocumented as of this encounter Visit Diagnoses Not on filedocumented in this encounter Care Teams Iv Technician Relationship Specialty Start Date End Date Javi Izaguirre DO PCP - General 06/22/[address] [place] [address] documented as of this encounter
--- OUTSIDE RECORDS SUMMARY | 2022-04-22 01:46 | XMS_ITS | Encounter Summary ---
:1945 Author Organization [facility] [place] [address] Care Team Providers Name Role Phone Javi Izaguirre DO Primary Care Provider Encounter Details Date Type Department Care Team Description 10/01/2010 Follow-Up Hematology [facility]cology [facility] DR [address] HEM/ONC [address] [phone] Social History Tobacco Use Types Packs/Day Years Used Date Never Assessed Sex Assigned at Date Recorded Female 03/31/2021 3:33 PM EDT documented as of this encounter Plan of Treatment Not on filedocumented as of this encounter Visit Diagnoses Not on filedocumented in this encounter Care Teams Trimming Department Blocker Relationship Specialty Start Date End Date Javi Izaguirre DO PCP - General 06/22/[address] [place], [place] [address] documented as of this encounter
--- OUTSIDE RECORDS SUMMARY | 2022-04-22 01:46 | XMS_ITS | Encounter Summary ---
:1945 Author Organization [facility] [place] [address] Care Team Providers Name Role Phone Javi Izaguirre DO Primary Care Provider Reason for Visit Reason Onset Date Comments Medication Refill 01/28/2011 Encounter Details Date Type Department Care Team Description 01/28/2011 [facility] (Primary [address] Dx) [address] [place] [phone] Social History Tobacco Use Types Packs/Day Years Used Date Never Smoker Sex Assigned at Date Recorded Female 03/31/2021 3:33 PM EDT documented as of this encounter Plan of Treatment Not on filedocumented as of this encounter Visit Diagnoses Diagnosis Breast cancer - Primary Malignant neoplasm of breast (female), u nspecified site documented in this encounter Care Teams Outside Plant Field Engineer Relationship Specialty Start Date End Date Javi Izaguirre DO PCP - General 06/22/[address] [place], [place] [address] documented as of this encounter
--- OUTSIDE RECORDS SUMMARY | 2022-04-22 01:46 | XMS_ITS | Encounter Summary ---
:1945 Author Organization [facility] [place] [address] Care Team Providers Name Role Phone Dmitriy, Javi BURKS Primary Care Provider Reason for Visit Reason Comments Chemotherapy Taxol Cycle Encounter Details Date Type Department Care Team Description 12/23/2010 Office Visit Hematology Oncology at [facility], DR BLAS Ca ncer of breast (Primary Dx); [facility] HEM/ONC Malignant neoplasm of breast (female), unspecified site [address] [place] [phone] Social History Tobacco Use Types Packs/Day Years Used Date Never Smoker Sex Assigned at Date Recorded Female 03/31/2021 3:33 PM EDT documented as of this encounter Progress Notes Romy Toscano RN - 12/23/2010 10:19 AM EDT INFUSION THERAPY ADMINISTRATION NOTES TIME TREATMENT STARTED: 1000 TIME TREATMENT ENDED: 1320 DIAGNOSIS: Breast Cancer PROTOCOL: no CYCLE #: REASON FOR VISIT: Taxol infusion SUBJECTIVE Sofía Mcdonald offers no complaints. OBJECTIVE LAB DATA: Labs from [facility] today reviewed and found adequate for treatment. WBC 4.43, RBC 3.78, HGB 12.3, PLT 271, ANC 3.11 IF PAIN IS >5, INTERVENTION AND EFFECTIVENESS: [...] clinic next week for consideration of cycle 6 of taxol documented in this encounter Plan of Treatment [...] Rate Site dexamethasone sodium (PF) 10 Given 12/23/2010 11:27 AM EDT 236 mL/hr mg, ondansetron (ZOFRAN) 16 mg in sodium chloride 0.9% 59 mL IVPB Intravenous, at 236 mL/hr, ONCE, On [place]aney 12/23/10 at 1030, 1 dose famotidine (PEPCID) 20 mg, Given 12/23/2010 11:06 AM EDT 210 mL/hr diphenhydrAMINE (BENADRYL) 25 mg in sodium chloride 0.9% 52.5 mL IVPB Intravenous, at 210 mL/hr, ONCE, On Delaney 12/23/10 at 1030, 1 dose paclitaxel (TAXOL) 143 mg in New Bag 12/23/2010 12:03 PM EDT 143 m g 273.8 mL/hr dextrose 5% Non-PVC 273.8333 mL chemo infusion 143 mg, Intravenous, ONCE, 1 dose, On Delaney 12/23/10 at 1030, Administer over 1 Hours documented in this encounter Care Teams Homicide Squad Commanding Officer Relationship Specialty Start Date End Date Javi Izaguirre DO PCP - General 06/22/[address] [place] [address] documented as of this encounter
--- OUTSIDE RECORDS SUMMARY | 2022-04-22 01:46 | XMS_ITS | Encounter Summary ---
:1945 Author Organization [facility] [place] [address] Care Team Providers Name Role Phone Javi Izaguirre DO Primary Care Provider Encounter Details Date Type Department Care Team Description 07/19/2010 Hospital Encounter MRI [facility] Jake Diallo MD [facility] [place] [address] [place] [phone] Social History Tobacco Use Types Packs/Day Years Used Date Never Assessed Sex Assigned at Date Recorded Female 03/31/2021 3:33 PM EDT documented as of this encounter Plan of Treatment Not on filedocumented as of this encounter Visit Diagnoses Not on filedocumented in this encounter Care Teams Machine Tailer Relationship Specialty Start Date End Date Javi Izaguirre DO PCP - General 06/22/[address] [place] [address] documented as of this encounter
--- OUTSIDE RECORDS SUMMARY | 2022-04-22 01:46 | XMS_ITS | Encounter Summary ---
:1945 Author Organization [facility] [place] [address] Care Team Providers Name Role Phone Dmitriy, Javi BURKS Primary Care Provider Encounter Details Date Type Department Care Team Description 12/06/2010 Orders Only Orthopaedics at [facility] Shilpi Chanel [facility] Ramirez Menendez, [place] [address] [facility] [phone] ORTHOPAEDIC SURG [place], [place] [address] (Wo rk) Social History Tobacco Use Types Packs/Day Years Used Date Never Smoker Sex Assigned at Date Recorded Female 03/31/2021 3:33 PM EDT documented as of this encounter Plan of Treatment Not on filedocumented as of this encounter Procedures Procedure Name Priority Date/Time Associated Diagnosis Comme nts XR KNEE AP AND LAT Routine 12/06/2010 10:13 AM Re sults for this BILAT EDT procedure are i n the results section. documented in this encounter Results XR KNEE BILATERAL1 OR 2 VIEW (12/06/2010 10:13 AM EDT) Anatomical Region Laterality Modality Knee Bilateral Radiographic Imaging Specimen (Source) Anatomical Collection Method Collection Time Re ceived Time Location / / Volume Laterality 12/06/2010 10:13 AM EDT Impressions 12/06/2010 10:03 PM EDT IMPRESSION: ?? 1. ??Bilateral total knee arthroplasties . 2. ??No change in appearance since the l ast examination. 3. ??In particular, the prominent radiol ucency surrounding the screw in the right fibular head has been present sinc e 2005. ? Narrative 12/06/2010 10:03 PM EDT BILATERAL KNEES, 12/06/10: HISTORY: ??Annual bilateral TKA. FINDINGS: ??Bilateral total knee arthrop lasties. ??The appearance and alignment are similar to 2009. ??The radiolucency surrounding the screw in the right fibular head is unchanged. ??The alignme nt of the tibial component of the right knee arthroplasty is similar to the 1999 examination. ??No left knee effusion and a small right knee effusion. ?? Procedure Note rBeanne Chavez MD - 12/06/2010Formatt ing of this note might be different from the original. BILATERAL KNEES, 12/06/10: HISTORY: Annual bilateral TKA. FINDINGS: Bilateral total knee arthropla sties. The appearance and alignment are similar to 2009. The radiolucency boogie rrounding the screw in the right fibular head is unchanged. The alignment of the tibial component of the right knee arthroplasty is similar to the 1999 examination. No left knee effusion and a small right knee effusion. IMPRESSION IMPRESSION: 1. Bilateral total knee arthroplasties. 2. No change in appearance since the las t examination. 3. In particular, the prominent radioluc ency surrounding the screw in the right fibular head has been present sinc e 2005. Shilpi Shon Charley-Marker E COMMERCE STRATEGIST IMG DX ORDERABLES documented in this encounter Visit Diagnoses Not on filedocumented in this encounter Care Teams Solid Propellant Processor Relationship Specialty Start Date End Date Javi Izaguirre DO PCP - General 06/22/[address] [place] [address] documented as of this encounter
--- OUTSIDE RECORDS SUMMARY | 2022-04-22 01:46 | XMS_ITS | Encounter Summary ---
:1945 Author Organization [facility] [address] Care Team Providers Name Role Phone Dmitriy, Javi BURKS Primary Care Provider Reason for Visit Reason Onset Date Comments Medication Refill 11/05/2010 Encounter Details Date Type Department Care Team Description 11/05/2010 [facility] Antony Reddy MD Breast ca (Primary Dx) [address] [place] [id number] [phone] Social History Tobacco Use Types Packs/Day Years Used Date Never Assessed Sex Assigned at Date Recorded Female 03/31/2021 3:33 PM EDT documented as of this encounter Miscellaneous Notes Telephone Encounter - Romy Toscano RN - 11/05/2010 8:47 AM EDT Phone call from patient to state that of the medications she has for nausea, the only one that is affective and not giving her side affects is lorazepam. She states the zofran is giving her a terrible headache. She has been taking lorazepam about twice a day and it is effective but she is completely out of them. She is requesting a refill. Communication with Dr. Cuevas and verbal order to call in lorazepam. Lorazepam called into [facility] in [place] and call back to Sofía to advice her of that. documented in this encounter Plan of Treatment Not on filedocumented as of this encounter Visit Diagnoses Diagnosis Breast CA - Primary Malignant neoplasm of breast (female), u nspecified site documented in this encounter Care Teams Inventory Control Analyst Relationship Specialty Start Date End Date Javi Izaguirre DO PCP - General 06/22/[address] [place] [address] documented as of this encounter
--- OUTSIDE RECORDS SUMMARY | 2022-04-22 01:46 | XMS_ITS | Encounter Summary ---
:1945 Author Organization [facility] [place] [address] Care Team Providers Name Role Phone Javi Izaguirre DO Primary Care Provider Reason for Visit Reason Comments Injections Neulasta Encounter Details Date Type Department Care Team Description 11/12/2010 Follow-Up Hematology Oncology at CL[facility], DR Hu (Primary Dx) [facility] HEM/ONC [address] [place] [phone] Social History Tobacco Use Types Packs/Day Years Used Date Never Smoker Sex Assigned at Date Recorded Female 03/31/2021 3:33 PM EDT documented as of this encounter Last Filed Vital Signs Vital Sign [place] Time Taken Comments Blood Pressure 116/70 11/12/2010 10:52 AM EDT Pulse 76 11/12/2010 10:52 AM EDT Temperature 36.3 ??C (97.3 ??F) 11/12/2010 10:52 AM EDT Respiratory Rate 18 11/12/2010 10:52 AM EDT Oxygen Saturation 96% 11/12/2010 10:52 AM EDT Inhaled Oxygen Concentration - - Weight - - Height - - Body Mass Index - - documented in this encounter Progress Notes Rosi Arevalo RN - 11/12/2010 11:12 AM EDT Sofía came in to clinic today after cycle 4 of AC to receive her neulasta injection for prevention of chemotherapy induced neutropenia. documented in this encounter Plan of Treatment Not on filedocumented as of this encounter Visit Diagnoses Diagnosis Breast CA - Primary Malignant neoplasm of breast (female), u nspecified site documented in this encounter Administered Medications Inactive Administered Medications - up to 3 most recent administrations Medication Order MAR Action Action Date Dose Rate Site pegfilgrastim (NEULASTA) Given 11/12/2010 10:30 6 mg Right Upper Outer injection 6 mg AM EDT Quadrant 6 mg, Subcutaneous, ONCE, 1 dose, On Mon11/12/10 at 0900, Routine documented in this encounter Care Teams Audiovisual Production Specialist Relationship Specialty Start Date End Date Javi Izaguirre DO PCP - General 06/22/10 [address] [place] [address] documented as of this encounter
--- OUTSIDE RECORDS SUMMARY | 2022-04-22 01:46 | XMS_ITS | Encounter Summary ---
:1945 Author Organization [facility] [place] [address] Care Team Providers Name Role Phone Javi Izaguirre DO Primary Care Provider Reason for Visit Reason Comments Follow-up Asses labs for chemo Encounter Details Date Type Department Care Team Description 01/20/2011 Follow-Up Hematology Oncology at Audra Heard APRN Breast cancer (Primary [address] Dx) [address] [place] [phone] Social History Tobacco Use Types Packs/Day Years Used Date Never Smoker Sex Assigned at Date Recorded Female 03/31/2021 3:33 PM EDT documented as of this encounter Last Filed Vital Signs Vital Sign [place] Time Taken Comments Blood Pressure 117/66 01/20/2011 9:28 AM EDT Pulse 67 01/20/2011 9:28 AM EDT Temperature 36.8 ??C (98.2 ??F) 01/20/2011 9:28 AM EDT Respiratory Rate 18 01/20/2011 9:28 AM EDT Oxygen Saturation 95% 01/20/2011 9:28 AM EDT Inhaled Oxygen Concentration - - Weight 73.5 kg (162 lb 0.6 oz) 01/20/2011 9:28 AM EDT Height - - Body Mass Index 28.53 01/13/2011 10:48 AM EDT documented in this encounter Progress Notes Kiana Heard, ECOLOGICAL RISK ASSESSOR - 01/21/2011 2:32 PM EDT Hematology/Oncology Out[facility] - [place], [place], [id number] () - [phone] (fax) ESTABLISHED PATIENT EVALUATION: 1. Breast cancer - stage IIA, pT1c, pN1, AR, IDC, low grade, ER/VT positive, HER2/ricardo negative. 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 [id number]-. 08/26/10 L partial mastectomy caudal margin. 09/21/10 [...] to the clinic today with breast cancer undergoing treatement anticipating cycle 9/12 Taxol. She has some fatigue, which is tolerable. She has an appetite, dysgeusia, isable to eat. She has no swelling or numbness or tingling in her fingers or toes. She has occasional streaks of bright red blood when straining to move her bowels at times when she is constipated. No other bleeding. She has had a skin tags removed in this area. She is sleeping well. INTERIM SOCIAL/FAMILY HISTORY: No interval change. REVIEW OF SYSTEMS: Energy: stable fatigue Pain: no Appetite:good Fevers/chills/drenching sweats:No Bruising/bleeding/melena:No Recent infections:No HEENT: negative Nausea/vomiting/diarrhea/constipation:No Dysuria: No SOB/cough/chest pain: chronic Change in adenopathy or other masses:No Unexpected [...] deficit. RADIOLOGY: no new studies LABORATORY: WBC 4.22, Hg 12.0, PLT 302, ANC 3.17, bun 18, creat 0.7, AP 79, AST 21, ALT 46, Na 142, K 3.7 ASSESSMENT/PLAN: Breast cancer - undergoing adjuvant chemotherapy which she is tolerating very well. Proceed with cycle #9/12 Taxol today. RTC in one week for cycle #10. She will check w/RT to discuss scheduling her first [place] in early February, it is planned for later in Feb. She and her have a cruise booked for April. Norberto was reminded to call in the interim should questions or concerns arise. documented in this encounter Procedure Notes Provider, Scanning - 01/20/2011 9:08 AM EDTAssociated Order(s): SCAN DOC: LAB documented in this encounter Plan of Treatment Not on filedocumented as of this encounter Procedures Procedure Name Priority Date/Time Associated Diagnosis Comme nts LAB SCAN 01/20/2011 9:08 AM Breast cancer Results for this EDT procedure are i n the results section . documented in this encounter Results SCAN DOC: LAB (01/20/2011 9:08 AM EDT) Narrative 01/20/2011 9:08 AM EDT Procedure Note Provider, Scanning - 01/20/2011 9:08 AM EDT Scanning Provider MEDIA MGR SCAN EXT ORDR/RSLT documented in this encounter Visit Diagnoses Diagnosis Breast cancer - Primary Malignant neoplasm of breast (female), u nspecified site documented in this encounter Care Teams Aviculturist Relationship Specialty Start Date End Date Javi Izaguirre DO PCP - General 06/22/[address] [place] [address] documented as of this encounter
--- OUTSIDE RECORDS SUMMARY | 2022-04-22 01:46 | XMS_ITS | Encounter Summary ---
:1945 Author Organization [facility] [place] [address] Care Team Providers Name Role Phone Javi Izaguirre DO Primary Care Provider Encounter Details Date Type Department Care Team Description 09/28/2010 Follow-Up Radiation Oncology a t [facility] Rad Nurse, [address] [phone] Social History Tobacco Use Types Packs/Day Years Used Date Never Assessed Sex Assigned at Date Recorded Female 03/31/2021 3:33 PM EDT documented as of this encounter Plan of Treatment Not on filedocumented as of this encounter Visit Diagnoses Not on filedocumented in this encounter Care Teams Guest Experience Captain Relationship Specialty Start Date End Date Javi Izaguirre DO PCP - General 06/22/[address] [place], [place] [address] documented as of this encounter
--- OUTSIDE RECORDS SUMMARY | 2022-04-22 01:47 | XMS_ITS | Encounter Summary ---
:1945 Author Organization [facility] [place] [address] Care Team Providers Name Role Phone Javi Izaguirre DO Primary Care Provider Encounter Details Date Type Department Care Team Description 07/13/2010 Procedure visit [place] [address] Social History Tobacco Use Types Packs/Day Years Used Date Never Assessed Sex Assigned at Date Recorded Female 03/31/2021 3:33 PM EDT documented as of this encounter Plan of Treatment Not on filedocumented as of this encounter Visit Diagnoses Not on filedocumented in this encounter Care Teams Leather Lacer Relationship Specialty Start Date End Date Javi Izaguirre DO PCP - General 06/22/[address] [place] [address] documented as of this encounter
--- OUTSIDE RECORDS SUMMARY | 2022-04-22 01:47 | XMS_ITS | Encounter Summary ---
:1945 Author Organization [facility] [address] Care Team Providers Name Role Phone Javi Izaguirre DO Primary Care Provider Encounter Details Date Type Department Care Team Description 07/15/2010 Procedure [place] [address] Social History Tobacco Use Types Packs/Day Years Used Date Never Assessed Sex Assigned at Date Recorded Female 03/31/2021 3:33 PM EDT documented as of this encounter Plan of Treatment Not on filedocumented as of this encounter Visit Diagnoses Not on filedocumented in this encounter Care Teams Regulatory Specialist Relationship Specialty Start Date End Date Javi Izaguirre DO PCP - General 06/22/[address] [place] [address] documented as of this encounter
--- OUTSIDE RECORDS SUMMARY | 2022-04-22 01:47 | XMS_ITS | Encounter Summary ---
:1945 Author Organization [facility] [place] [address] Care Team Providers Name Role Phone Javi Izaguirre DO Primary Care Provider Encounter Details Date Type Department Care Team Description 07/09/2010 Office Visit [place] [address] Social History Tobacco Use Types Packs/Day Years Used Date Never Assessed Sex Assigned at Date Recorded Female 03/31/2021 3:33 PM EDT documented as of this encounter Plan of Treatment Not on filedocumented as of this encounter Visit Diagnoses Not on filedocumented in this encounter Care Teams Balance And Hairspring Assembler Relationship Specialty Start Date End Date Javi Izaguirre DO PCP - General 06/22/[address] [place] [address] documented as of this encounter
--- OUTSIDE RECORDS SUMMARY | 2022-04-22 01:47 | XMS_ITS | Encounter Summary ---
:1945 Author Organization [facility] Address [place] [phone] Care Team Providers Name Role Phone Javi Izaguirre DO Primary Care Provider Encounter Details Date Type Department Care Team Description 07/14/2010 Hospital Encounter Outpatient Surgery Mckayla Silveira MD [facility] [place] [address] [place] [address] [phone] Social History Tobacco Use Types Packs/Day Years Used Date Never Assessed Sex Assigned at Date Recorded Female 03/31/2021 3:33 PM EDT documented as of this encounter Plan of Treatment Not on filedocumented as of this encounter Visit Diagnoses Not on filedocumented in this encounter Care Teams Salesperson Parts Relationship Specialty Start Date End Date Javi Izaguirre DO PCP - General 06/22/[address] [place] [address] documented as of this encounter
--- OUTSIDE RECORDS SUMMARY | 2022-04-22 01:47 | XMS_ITS | Encounter Summary ---
:1945 Author Organization [facility] [place] [address] Care Team Providers Name Role Phone Javi Izaguirre DO Primary Care Provider Encounter Details Date Type Department Care Team Description 07/09/2010 Office Visit Orthopaedics at [facility] Faby Vincent, [facility] [place] [address] [address] [facility] [phone] ORTHOPAEDIC SURG [place], [place] [address] (Wo rk) Social History Tobacco Use Types Packs/Day Years Used Date Never Assessed Sex Assigned at Date Recorded Female 03/31/2021 3:33 PM EDT documented as of this encounter Plan of Treatment Not on filedocumented as of this encounter Visit Diagnoses Not on filedocumented in this encounter Care Teams Field Support Engineer Relationship Specialty Start Date End Date Javi Izaguirre DO PCP - General 06/22/[address] [place] [address] documented as of this encounter
--- OUTSIDE RECORDS SUMMARY | 2022-04-22 01:47 | XMS_ITS | Encounter Summary ---
:1945 [place] [address] Care Team Providers Name Role Phone Wolf Izaguirre Primary Care Provider Encounter Details Date Type Department Care Team Description 07/15/2010 Orders Only Lab [facility] Keith Rojas MD [facility] [place] [address] [place] [address] [phone] (Wo rk) Social History Tobacco Use Types Packs/Day Years Used Date Never Assessed Sex Assigned at Date Recorded Female 03/31/2021 3:33 PM EDT documented as of this encounter Plan of Treatment Not on filedocumented as of this encounter Procedures Procedure Name Priority Date/Time Associated Diagnosis Comme nts SURGICAL PATHOLOGY Routine 07/15/2010 8:55 AM Res ults for this REPORT EST procedure are i n the results section. documented in this encounter Results PATHOLOGY SURGICAL PATHOLOGY FINAL REPORT (07/15/2010 8:55 AM EST) Component Value Ref Test Analysis Performed At [facility] gist Range Method Time Signature Surgical CERNER Pathology ? [facility] Report ? Provider: ?? KEITH SNE ?Pt. Name: ?? DARREN BHAGAT, SOFÍA Blevins ? Acc #: ?[id number] ?Pt. MRN: ?[id number] ? Col Date: ?? 07/15/20 10 ?/Sex: ?1945,(64 years),Female ? Rec Date: ?? 07/15/2010 ?LOC: ?[facility] ? SURGICAL PATHOLOGY ? ---Pathologic Diagnosis--- ? Needle biopsies: ?Left breast. ? Diagnosis: ?Invasive ductal carcinoma with lobular features. ? Ductal carcinoma in situ. ? Microcalcifications: ??N/A ? CR-0 ? 07/16/10 ? XL ? 07/16/10 Verified by: ? Ankita Graham MD ? Pathologist ? (Electronic Si gnature) ? The attending pathologist whose signature appears o n this report has ? reviewed all diagnostic slides and has edited the joseph ss and/or ? microscopic portion of the report in rendering the fi nal pathologic ? diagnosis. ? ---Comment--- ? Dr. Belia Scott has ki ndly reviewed the patient care representative slides and concurs ? with the above diagnosis. ? ---Microscopic Description--- ? Slides reviewed, microscopic description not recorded . ? ---Gross Description--- ? Labeled/Fixative: ? Left breast, formalin. ? Qty/Size/Weight: ?Eighteen intact needle core biopsies, ranging from ? 0.9 cm to 2.5 cm. ??Cylindrical cores of james-white ? and yellow-white, fatty and fibrofatty tissue with an additional ? 0.5 x 0.4 x 0.2-cm aggregate of similar fatty and f ibrofatty tissue. ? Sections/Processing: ??(T4) ??aje/EJR ? ---Clinical Information--- ? Specimen Submitted: ? A - Left breast ? Clinical History: ? Two tiny adjacent masses high suspicion ? Clinical Diagnosis: ? Ca, F adenoma ? Report to: ? [facility] ? Provider: ?? KEITH SEN ?Pt. Name: ?? DARREN BHAGAT, SOFÍA Blevins ? Acc #: ?[id number] ?Pt. MRN: ?[id number] ? Col Date: ?? 07/15/20 10 ?/Sex: ?1945,(64 years),Female ? Rec Date: ?? 07/15/2010 ?LOC: ?[facility] ? SURGICAL PATHOLOGY ? WOLF IZAGUIRRE, DO ? [facility] ? [address] ? [place] [address] Specimen (Source) Anatomical Collection Method Collection Time Re ceived Time Location / / Volume Laterality 07/15/2010 8:55 AM EST Keith Sen MD PATHOLOGY/CYTOLOGY ORDERABLE S Performing Organization Address City/State/Z[place] [address] [facility] documented in this encounter Visit Diagnoses Not on filedocumented in this encounter Care Teams Test Engine Evaluator Relationship Specialty Start Date End Date Wolf Izaguirre DO PCP - General 06/22/[address] [place] [address] documented as of this encounter
--- OUTSIDE RECORDS SUMMARY | 2022-04-22 01:47 | XMS_ITS | Encounter Summary ---
:1945 Author Organization [facility] [place] [address] Care Team Providers Name Role Phone Javi Izaguirre DO Primary Care Provider Encounter Details Date Type Department Care Team Description 07/13/2010 Procedure [place] [address] Social History Tobacco Use Types Packs/Day Years Used Date Never Assessed Sex Assigned at Date Recorded Female 03/31/2021 3:33 PM EDT documented as of this encounter Plan of Treatment Not on filedocumented as of this encounter Visit Diagnoses Not on filedocumented in this encounter Care Teams Music Therapist [employer] Relationship Specialty Start Date End Date Javi Izaguirre DO PCP - General 06/22/[address] [place] [address] documented as of this encounter
--- OUTSIDE RECORDS SUMMARY | 2022-04-22 01:47 | XMS_ITS | Encounter Summary ---
:1945 Author Organization [facility] [address] Care Team Providers Name Role Phone Javi Izaguirre DO Primary Care Provider Encounter Details Date Type Department Care Team Description 07/09/2010 Emergency Emergency Department Darwin Gross MD [facility] Ramirez briseno [place] [address] [place] [address] [phone] (Wo rk) Social History Tobacco Use Types Packs/Day Years Used Date Never Assessed Sex Assigned at Date Recorded Female 03/31/2021 3:33 PM EDT documented as of this encounter Plan of Treatment Not on filedocumented as of this encounter Visit Diagnoses Not on filedocumented in this encounter Care Teams Needle Punch Machine Operator Relationship Specialty Start Date End Date Javi Izaguirre DO PCP - General 06/22/[address] [place] [address] documented as of this encounter
--- OUTSIDE RECORDS SUMMARY | 2022-04-22 01:50 | XMS_ITS | Encounter Summary ---
:1945 Author Organization [facility] Address [address] [place] [address] Care Team Providers Name Role Phone Javi Izaguirre DO Primary Care Provider Encounter Details Date Type Department Care Team Description 04/19/2022 Lab Requisition [facility] Outr Resulting Lab, Pathology & Laboratory Provider [facility] [address], [place] [address] Social History Tobacco Use Types Packs/Day Years Used Date Never Assessed Sex Assigned at Date Recorded Not on file documented as of this encounter Plan of Treatment Not on filedocumented as of this encounter Procedures Procedure Name Priority Date/Time Associated Diagnosis Comme nts THYROID ANTIBODIES Routine 04/19/2022 13:55 Resul ts for this EDT procedure are i n the results section. documented in this encounter Results THYROID ANTIBODIES (04/19/2022 13:55 EDT) Pathologist Sig nature Anti-Thyroglobulin <15 <=60 U/mL [facility] Thyroperoxidase Ab 45 <=60 U/mL [facility] Specimen Blood - Venous blood (substance) Performing Organization Address City/State/ZIP Code Phon e Number [facility] [address] [place] [address] SERVICES documented in this encounter Visit Diagnoses Not on filedocumented in this encounter Care Teams Java Lead Relationship Specialty Start Date End Date Javi Izaguirre, PCP - General 03/26/[address] [place] [id number] documented as of this encounter
--- OUTSIDE RECORDS SUMMARY | 2022-04-22 01:50 | XMS_ITS | Encounter Summary ---
:1945 Author Organization [facility] Address [address] [place] [address] Care Team Providers Name Role Phone Unavailable Primary Care Provider Unavailable Encounter Details Date Type Department Care Team Description 12/01/1999 Results Only [facility] - Donavan Soliz MD conversion [address] [place] [id number] Social History Tobacco Use Types Packs/Day Years Used Date Never Assessed Sex Assigned at Date Recorded Not on file documented as of this encounter Plan of Treatment Not on filedocumented as of this encounter Procedures Procedure Name Priority Date/Time Associated Diagnosis Comme nts SURGICAL PATHOLOGY Routine 12/01/1999 15:41 Resul ts for this EDT procedure are i n the results section. documented in this encounter Results SURGICAL PATHOLOGY (12/01/1999 15:41 EDT) Pathology Report: SURGICAL PATHOLOGY REPORT NITESH Costa ALLYTAMMIE Reports generated via electronic interface contain mechelle ginal data; LAB however they are lacking the format of the original re port. Caution should be taken when reading/interpreting unfo rmatted reports. Name: ? FELISA LUX ? Accession #: ? [id number] ? : ? 1945 (Age: 54) ??F ? Collect Date: ? 12/01/1999 ? Location: ?Receive Date: ? 12/01/1999 ? Provider: CARMINE COURTNEY MD Copy to: CARMINE GONZALEZ DO WOLF ISIDRO MD ? Final Pathologic Diagnosis: MICROSCOPIC DIAGNOSIS: ? Anus, biopsy: ? - Fibroepithelial polyp (anal tag). Document reviewed and electronically signed by: Conversion for MENA LINDO Report ??Date: 12/03/1999 00:00 By the signature above, the attending physician certif ies that he/she has personally conducted a gross and/or microscopic examin ation of the described specimens and rendered or confirmed the above diagnosi s. Specimen(s) Received: TISSUE SUBMITTED: ? Anal polyp CLINICAL DATA: ? Anal polyp; rectal pain Gross Description: GROSS: ? Received in Hollande's fixative labelled Guest and anal polyp ? is a turner polypoid 0.6 x 0.3 x 0.3 cm polyp. ??T he margin of ? resection is inked black. ??The specimen is ent irely submitted in ? one cassette. ??(Daniel Chew)/louis End of Report Specimen Performing Organization Address City/State/ZIP Code Phon e Number [facility] [address] [place] [address] SERVICES [facility] [address] [place] [address] documented in this encounter Visit Diagnoses Not on filedocumented in this encounter
--- OUTSIDE RECORDS SUMMARY | 2022-04-22 01:50 | XMS_ITS | Clinical Summary ---
:1945 Author Organization [facility] Address [address] [place] [address] Care Team Providers Name Role Phone Javi Izaguirre Primary Care Provider Encounters Date Type Specialty Care Team Description 04/19/2022 Lab Requisition Clinical Laboratory Outr Resulting Lab , Provider from Last 3 Months Social History Tobacco Use Types Packs/Day Years Used Date Never Assessed Sex Assigned at Date Recorded Not on file Plan of Treatment Health Maintenance Due Date Last Done Comments Fall Risk Screening 10/22/2008 Procedures Procedure Name Priority Date/Time Associated Diagnosis Comme nts THYROID ANTIBODIES Routine 04/19/2022 13:55 Resul ts for this EDT procedure are i n the results section. from Last 3 Months Results THYROID ANTIBODIES (04/19/2022 13:55 EDT) Pathologist Sig nature Anti-Thyroglobulin <15 <=60 U/mL [facility] Thyroperoxidase Ab 45 <=60 U/mL [facility] Specimen Blood - Venous blood (substance) Performing Organization Address City/State/ZIP Code Phon e Number [facility] [address] [place] [address] SERVICES from Last 3 Months Insurance Payer Benefit Plan / Subscriber ID Effective Dates Phone Addre ss Type Group MEDICARE MEDICARE A/B [id number] 2008-Present [id number] [place] [id number] [place] [id number] 2020-Presen [address] [place] [phone] Bebeto,Sofía Personal/Family Self [address] (Home) [place] [address] Bebeto,Sofía Personal/Family Self [address] (Home) [place] [address] Bebeto,Sofía Personal/Family Self [address] (Home) [place] [address] Sofía Mcdonald Personal/Family Self [address] (Home) [place] [address] Care Teams Stock Dealer Relationship Specialty Start Date End Date Javi Izaguirre, PCP - General 03/26/20 [address] [facility] [place] [address]
--- OUTSIDE RECORDS SUMMARY | 2022-04-22 01:50 | XMS_ITS | Encounter Summary ---
:1945 Author Organization [facility] Address [address] [place] [address] Care Team Providers Name Role Phone Javi Izaguirre DO Primary Care Provider Encounter Details Date Type Department Care Team Description 03/27/2020 Lab Requisition [facility] Belia Shannon for screening for malignant neoplasm of colon; Pathology & M, DO Anal fissure, unspecified; Laboratory Medicine [address] Divertic ulosis of large intestine without perforation or abscess without bleeding; - [address] [place] [address] First degree hemorrhoids; [address] [facility] RAPID, Benign neoplasm of colon, [place] [address] [place] [phone] Social History Tobacco Use Types Packs/Day Years Used Date Never Assessed Sex Assigned at Date Recorded Not on file documented as of this encounter Plan of Treatment Not on filedocumented as of this encounter Procedures Procedure Name Priority Date/Time Associated Diagnosis Comme nts SURGICAL PATHOLOGY Today 03/26/2020 12:30 Encounter for Resu lts for this EDT screening for procedure are in malignant neoplasm the resul ts of colon section. Anal fissure, unspecified Diverticulosis of large intestine without perforation or abscess without bleeding First degree hemorrhoids Benign neoplasm of colon, unspecified documented in this encounter Results SURGICAL PATHOLOGY (03/26/2020 12:30 EDT) Final Diagnosis A. COLON, 40 CM, POLYP, [facility]OPSY: [facility] Hyper[facility] C[facility] . LABORATORY B. COLON, RANDOM, BIOPSY: SERVICES - Colonic mucosa without significant diagnostic abnorm ality. Attestation By the signature [facility] MEDICAL Electronica lly below, the attending CENTER signed by Ishan Leigh, physician certifies LABORATORY Amer K, MD on that they have 1) SERVICES 03/30/2020 at 0920 personally conducted a gross and/or microscopic examination of the described specimen(s), and/or personally interpreted the results of laboratory testing of the described specimen(s), and 2) personally rendered or confirmed the above diagnosis. Clinical History Screening for colon [facility] LABORATORY SERVICES Gross Description A. [facility] MEDICAL Received in formalin suly d with proper patient identification (initials G, K) and polyp @ 40 cm is a turner-brown nodular tissue, 0.2 x 0.2 x 0.1 cm. Entirely submitted in A1. CENTER LABORATORY B. SERVICES Received in formalin suly d with proper patient identification (initials G, K) and random Bx @ 60 cm is a turner irregular tissue, 0.2 x 0.2 x 0.1 cm. Entirely submitted in B1. Sho Edwards 03/27/2020 8:27 Performing Lab [facility] SERVICES Scanned Images [facility] SERVICES Specimen Tissue - Entire colon (body structure) Tissue specimen (specimen) - Entire colo n (body structure) Performing Organization Address City/State/ZIP Code Phon e Number [facility] [address] [place] [address] SERVICES documented in this encounter Visit Diagnoses Diagnosis Encounter for screening for malignant ne oplasm of colon Special screening for malignant neoplasm s, colon Anal fissure, unspecified Diverticulosis of large intestine withou t perforation or abscess without bleeding Diverticulosis of colon (without mention of hemorrhage) First degree hemorrhoids Unspecified hemorrhoids without mention of complication Benign neoplasm of colon, unspecified documented in this encounter Care Teams Piano Tuner Relationship Specialty Start Date End Date Javi Izaguirre DO PCP - General 03/26/20 [address] [place] [address] documented as of this encounter
[2022-04-22] MEDS: Albuterol HFA 18 GM 200 PUFF INH IH (16:21)
[2022-04-22] MEDS: Inhaler, Assist Device 1 EACH MC (16:21)
--- NOTE | 2022-04-25 14:56 | W.PFT ---
Date of service: 04/22/22 Time of Service: 15:05 Pulmonary Function Test Result Requesting Provider Scotthene Indications: Dyspnea Interpretation Spirometry: There is no airflow limitation. Ther eis no significant bronchodilator response. Lung Volumes: Normal lung volumes Diffusion Capacity: Normal diffusion Airway Pressure: Normal airways resistance Impression Normal pulmonary function testing. Note: When compared to 04/19/22, FEV1 and FVC are much improved, indicating likely erroneous prior test. Clinical Correlation therefore is recommended.
== END 2022-04-22 01:18 | disposition home or self-care (01) ==
LOC: RT 01:18
PROVIDERS: PCP Nurse Practitioner Family; Visit Provider Student in an Organized Health Care Education/Training Program
DX: R06.09 Other forms of dyspnea (principal); R05.8 Other specified cough
CPT/HCPCS: 94060; 94726; 94729

== ENCOUNTER 2022-04-28 11:55 | Outpatient (CLI) | payer MEDICARE, BC, SELFPAY ==
--- NOTE | 2022-04-28 09:45 | DI.RAD_ITS ---
Exam(s) XR SHOULDER RT COMPLETE 2+V EXAM: XR SHOULDER RT COMPLETE 2+V CLINICAL HISTORY: right proximal humerus fracture. TECHNIQUE: 2D digital imaging was performed of the right shoulder. Three images were obtained. AP, and Y views were obtained. COMPARISON: CR XR SHOULDER RT COMPLETE 2+V from 03/23/2022 FINDINGS: BONES: There is again seen a comminuted fracture involving the proximal right humerus. There is been increased impaction of the fracture compared to the prior examination. Callus formation is seen abo ut the fractures suggesting some interval healing. No new fracture is identified. No bony destructi ve lesion is seen. JOINTS: No dislocation present. Mild degenerative changes of the acromioclavicular joint. SOFT TISSUE: Normal. IMPRESSION: Proximal right humeral fracture. DATA REPOSITORY: RADIATION DOSE DELIVERED:
== END 2022-04-28 11:56 | disposition home or self-care (01) ==
LOC: DIORS 11:55
PROVIDERS: PCP Nurse Practitioner Family; Referring Provider Nurse Practitioner Family; Visit Provider Physician Assistant
DX: S42.201A Unspecified fracture of upper end of right humerus, initial encounter for closed fracture (principal); X58.XXXA Exposure to other specified factors, initial encounter; Z96.651 Presence of right artificial knee joint; Z96.652 Presence of left artificial knee joint; Z96.641 Presence of right artificial hip joint
CPT/HCPCS: 99213; 73030

== ENCOUNTER 2022-07-04 02:51 | Outpatient (CLI) | payer MEDICARE, BC, SELFPAY ==
--- NOTE | 2022-07-04 07:35 | DI.CT_ITS ---
Exam(s) CT CHEST WO EXAM: CT CHEST WO CLINICAL HISTORY: f/u lung nodule,chronic cough, sob,r05.3,r06.02,r91.1. TECHNIQUE: Imaging protocol: Axial computed tomography images were obtained and coronal and sagittal reformatted images were created and reviewed. CONTRAST MATERIAL: Noncontrast COMPARISON: CT CHEST WITH CONTRAST from 01/04/2011 CR CHEST 2 VIEWS PA,LAT from 06/27/[address] CHEST WO from 01/03/2022 FINDINGS: Pulmonary parenchyma: No consolidation. Stable 9 millimeter nodule anteromedial left upper lobe. Sca ttered other scattered tiny nodules are present and unchanged in the left lower lobe. Mild periphera l interstitial changes greatest at the left lung apex. Emphysema: None. Tracheobronchial tree: No mucous plugging. No bronchiectasis . Interstitial changes: None. Pleura: No effusion or pneumothorax. Heart: The heart is mildly dilated. The mitral valve is heavily calcified. The coronary arteries s how mildcalcifications. Aorta: Thoracic aorta non-dilated. Mildatherosclerotic changes. Lymph nodes: No enlarged mediastinal or hilar lymph nodes. Bones: Mild degenerative disc changes are seen. Syndesmophyte formation is noted in the mid thorac ic spine. There is an old fracture the upper sternum. No evidence of compression fracture. Upper abdomen: Unremarkable. IMPRESSION: Nine left upper lobe nodule has been stable since 2010. Mild left upper lobe peripheral interstitial changes. RADIATION DOSE DELIVERED: 437.85mGy.cm Total DLP 437.85mGy.cm Total DLP DATA REPOSITORY: All CT scans at this facility are submitted to the National Radiology Data Registry (NRDR) Dose Index Registry (DIR) with the [employer] (ACR). RADIATION OPTIMIZATION: All CT scans at this facility use at least one of these dose optimization te chniques: automated exposure control; mA and/or kV adjustment per patient size (includes targeted exa ms where dose is matched to clinical indication); or iterative reconstruction.
== END 2022-07-04 03:11 ==
LOC: DI 02:51
PROVIDERS: PCP Nurse Practitioner Family; Visit Provider Student in an Organized Health Care Education/Training Program
DX: R06.02 Shortness of breath (principal); R05.3 Chronic cough; R91.1 Solitary pulmonary nodule; J98.4 Other disorders of lung
CPT/HCPCS: 71250

== ENCOUNTER 2022-07-04 04:19 | Outpatient (CLI) | payer MEDICARE, BC, SELFPAY ==
[2022-07-04 14:02] LABS: FREE T4 0.75 ng/dL (0.76-1.46); TSH 6.52 uIU/mL (0.36-3.74)
== END 2022-07-04 04:20 | disposition home or self-care (01) ==
PROVIDERS: PCP Nurse Practitioner Family; Visit Provider Nurse Practitioner Family
DX: E03.9 Hypothyroidism, unspecified (principal)
CPT/HCPCS: 36415; 71250; 84439; 84443

== ENCOUNTER → 2022-07-18 12:55 | Outpatient (BNVA) | payer MEDICARE, BC, SELFPAY | PROVIDERS: PCP Nurse Practitioner Family; Referring Provider Nurse Practitioner Family; Visit Provider Student in an Organized Health Care Education/Training Program | DX: S42.201D Unspecified fracture of upper end of right humerus, subsequent encounter for fracture with routine healing (principal); W19.XXXD Unspecified fall, subsequent encounter | CPT/HCPCS: 99213 ==

== ENCOUNTER 2022-08-24 01:14 | Outpatient (CLI) | payer MEDICARE, BC, SELFPAY ==
--- NOTE | 2022-08-24 07:30 | DI.MRI_ITS ---
Exam(s) MR UPPER JOINT RT WO EXAM: MR UPPER JOINT RT WO CLINICAL HISTORY: pain,closed fx rt proximal humerus,s42.201a. TECHNIQUE: Multiplanar multisequence MRI was performed. COMPARISON: Plain films 28 April 2022 FINDINGS: BONES: Fracture of the proximal humeral shaft showing persistent edema mainly on the metaphyseal side of the fracture. Fracture line shows a small amount of fluid consistent with nonunion. No underly ing pathologic lesion visible. JOINTS:The acromioclavicular joint shows inferior spurring.. The glenohumeral joint is unremarkable. Small amount of fluid is seen in the subacromial and subdeltoid bursa TENDONS: Supraspinatus: Some high signal within the distal fibers. There is artifact which show somewhat limi ts the visualization on the coronal sequences. Infraspinatus: Unremarkable. Subscapularis: Unremarkable. Teres Minor: Unremarkable. Biceps and [place]: Grossly intact MUSCLES: Severe supraspinatus muscle atrophy GLENOID LABRUM: Unremarkable on this noncontrast examination. SOFT TISSUES: Mildly enlarged right axillary lymph node, similar to prior CT. IMPRESSION: Exam somewhat limited by motion artifact. A severe partial to full-thickness tear of the supraspinat us tendon is suspected. Severe supraspinatus muscle atrophy. DATA REPOSITORY:
== END 2022-08-24 01:34 ==
LOC: DI 01:15
PROVIDERS: PCP Nurse Practitioner Family; Visit Provider Student in an Organized Health Care Education/Training Program
DX: M25.511 Pain in right shoulder (principal); S42.221D 2-part displaced fracture of surgical neck of right humerus, subsequent encounter for fracture with routine healing; X58.XXXD Exposure to other specified factors, subsequent encounter
CPT/HCPCS: 73221

== ENCOUNTER 2022-09-09 01:13 | Outpatient (CLI) | payer MEDICARE, BC, SELFPAY ==
--- NOTE | 2022-09-09 06:45 | DI.CT_ITS ---
Exam(s) CT UPPER EXTREMITY RT WO EXAM: CT UPPER EXTREMITY RT WO CLINICAL HISTORY: Surgery planning,arthritis rt glenohumeral joint, closed fx rt prox humerus. TECHNIQUE: Imaging Protocol: Axial computed tomography images with coronal and sagittal reformatted images were created and reviewed. COMPARISON: CR XR SHOULDER RT COMPLETE 2+V from 04/28/2022 MR MR UPPER JOINT RT WO from 08/24/2022 FINDINGS: Bones: There is again seen a fracture involving the surgical neck of the right humerus. The fractur e is impacted. There is incomplete healing of the fracture noted. The humeral head is seated within the glenoid fossa. No cellulitic or osteomyelitic changes are identified. Mild degenerative change s are seen at both the acromioclavicular and glenohumeral joints. No lytic or sclerotic lesions are identified. Soft Tissues: Normal. IMPRESSION: Stable appearance of the fracture involving the proximal right humerus. RADIATION DOSE DELIVERED: 529.6mGy.cm Total DLP 529.6mGy.cm Total DLP DATA REPOSITORY: All CT scans at this facility are submitted to the National Radiology Data Registry (NRDR) Dose Index Registry (DIR) with the [employer] (ACR). RADIATION OPTIMIZATION: All CT scans at this facility use at least one of these dose optimization te chniques: automated exposure control; mA and/or kV adjustment per patient size (includes targeted exa ms where dose is matched to clinical indication); or iterative reconstruction.
== END 2022-09-09 01:33 ==
LOC: DI 01:13
PROVIDERS: PCP Nurse Practitioner Family; Visit Provider Student in an Organized Health Care Education/Training Program
DX: S42.221D 2-part displaced fracture of surgical neck of right humerus, subsequent encounter for fracture with routine healing (principal); M75.101 Unspecified rotator cuff tear or rupture of right shoulder, not specified as traumatic; M19.011 Primary osteoarthritis, right shoulder
CPT/HCPCS: 73200

== ENCOUNTER 2022-09-14 09:33 | Outpatient (CLI) | payer MEDICARE, BC, SELFPAY ==
--- NOTE | 2022-09-14 08:45 | DI.RAD_ITS ---
Exam(s) XR SHOULDER RT COMPLETE 2+V EXAM: XR SHOULDER RT COMPLETE 2+V INDICATION: right rtc f/u. COMPARISON: CR XR SHOULDER RT COMPLETE 2+V from 04/28/[address] UPPER EXTREMITY RT WO from 09/09/2022 TECHNIQUE: 2D digital imaging was performed. Two views. FINDINGS: There has been no change in the alignment of the proximal humeral fracture. There appears to be incr eased callus formation around the fracture compared with prior exams. DATA REPOSITORY: RADIATION DOSE DELIVERED:
== END 2022-09-14 09:34 | disposition home or self-care (01) ==
LOC: DIORS 09:33
PROVIDERS: PCP Nurse Practitioner Family; Referring Provider Nurse Practitioner Family; Visit Provider Student in an Organized Health Care Education/Training Program
DX: M75.101 Unspecified rotator cuff tear or rupture of right shoulder, not specified as traumatic (principal); S42.201D Unspecified fracture of upper end of right humerus, subsequent encounter for fracture with routine healing; X58.XXXD Exposure to other specified factors, subsequent encounter
CPT/HCPCS: 99214; 73030

== ENCOUNTER 2022-10-04 03:27 | Outpatient (CLI) | payer MEDICARE, BC, SELFPAY ==
[2022-10-04 13:36] LABS: TSH (W/Ref FT4) 1.62 uIU/mL (0.36-3.74)
== END 2022-10-04 03:28 | disposition home or self-care (01) ==
PROVIDERS: PCP Nurse Practitioner Family; Visit Provider Nurse Practitioner Family
DX: E03.9 Hypothyroidism, unspecified (principal)
CPT/HCPCS: 36415; 84443

== ENCOUNTER 2023-01-03 11:44 | Outpatient (CLI) | payer MEDICARE, BC, SELFPAY ==
--- NOTE | 2023-01-03 11:33 | DI.RAD_ITS ---
Exam(s) XR SHOULDER RT COMPLETE 2+V EXAM: XR SHOULDER RT COMPLETE 2+V CLINICAL HISTORY: right shoulder f/u. TECHNIQUE: 2D digital imaging was performed of the right shoulder. Three images were obtained. AP, Grashey, Y-view and axillary views were obtained. COMPARISON: CR XR SHOULDER RT COMPLETE 2+V from 09/14/2022 FINDINGS: BONES: No acute fracture is present. No bony destructive lesion is seen. There is a healed fracture d eformity of the proximal humerus. JOINTS: No dislocation present. Degenerative changes are seen at the glenohumeral joint. SOFT TISSUE: An old well corticated osseous density is seen inferior to the humeral head. IMPRESSION: Healed right proximal humeral fracture. DATA REPOSITORY: RADIATION DOSE DELIVERED:
== END 2023-01-03 11:45 | disposition home or self-care (01) ==
LOC: DIORS 11:45
PROVIDERS: PCP Nurse Practitioner Family; Referring Provider Nurse Practitioner Family; Visit Provider Student in an Organized Health Care Education/Training Program
DX: S42.201D Unspecified fracture of upper end of right humerus, subsequent encounter for fracture with routine healing (principal); X58.XXXD Exposure to other specified factors, subsequent encounter; M75.101 Unspecified rotator cuff tear or rupture of right shoulder, not specified as traumatic
CPT/HCPCS: 99213; 73030

== ENCOUNTER 2023-01-09 13:55 | Outpatient (CLI) | payer MEDICARE, BC, SELFPAY ==
--- NOTE | 2023-01-09 12:00 | DI.RAD_ITS ---
Exam(s) XR HIP LT COMPLETE AP PELVIS EXAM: XR HIP LT COMPLETE AP PELVIS CLINICAL HISTORY: left low back pain, hip djd? M54.50 LOW BACK PAIN. TECHNIQUE: 2D digital imaging was performed. COMPARISON: CR XR HIP LT COMPLETE AP PELVIS from 01/08/2020 FINDINGS: Two views No evidence of pelvic nor hip fracture. Right hip prosthesis again noted. Moderate relatively unifo rm narrowing of the left hip joint appears unchanged from December 2019. No new marginal osteophytes wandy dent. No osseous lesions. IMPRESSION: Left hip findings as above which appear unchanged radiographically from December 2019, 3 years ago. DATA REPOSITORY: RADIATION DOSE DELIVERED:
--- NOTE | 2023-01-09 12:00 | DI.RAD_ITS ---
Exam(s) XR LUMBAR SPINE COMPLETE EXAM: XR LUMBAR SPINE COMPLETE CLINICAL HISTORY: low back pain M54.50. TECHNIQUE: 2D digital imaging was performed. COMPARISON: CR XR lumbar spine complete from 12/25/2018 FINDINGS: Five views Scoliosis again noted, convex left, unchanged from 2019. There is also a right hip prosthesis again noted. A transitional lumbosacral vertebra is again noted. There is multilevel advanced disc space narrowin g throughout the lumbar spine again noted. Also multilevel facet arthrosis. Epicenter of the scolio sis is again noted to be at the L3-4 level where there is asymmetric narrowing of the right-side of t he disc space at this level. IMPRESSION: As above but with minimal if any significant change compared to November 2018. If clinically indicated fo llow-up MRI can be performed. DATA REPOSITORY: RADIATION DOSE DELIVERED:
== END 2023-01-09 14:15 ==
LOC: DI 13:55
PROVIDERS: PCP Nurse Practitioner Family; Visit Provider Nurse Practitioner Family
DX: M41.9 Scoliosis, unspecified (principal); Z96.641 Presence of right artificial hip joint; M54.50 Low back pain, unspecified
CPT/HCPCS: 72110; 73502

== ENCOUNTER 2023-02-15 19:52 | Outpatient (REF) | payer MEDICARE, BC, SELFPAY ==
[2023-02-15 20:57] LABS: Bilirubin Negative (Negative); Blood Trace-intact (Negative); Clarity Sl Cloudy (Clear); Glucose Negative (Negative); Ketones Negative (Negative); Leukocyte Esterase Small (Negative); Nitrite Negative (Negative); Specific Gravity 1.015 (1.005-1.025); Urobilinogen 0.2 mg/dL (Up to 0.2)
[2023-02-15 21:12] LABS: Bacteria Few HPF (Negative); C & S Indicated? Yes; Casts Negative LPF (Negative); Crystals Negative HPF (Negative); Epithelial Cells Few HPF (Negative); Mucus Negative (Negative); RBC 0-2 HPF (0-2)
== END 2023-02-15 19:53 | disposition home or self-care (01) ==
LOC: LBN 19:52
PROVIDERS: PCP Nurse Practitioner Family; Visit Provider Physician Assistant
DX: R39.9 Unspecified symptoms and signs involving the genitourinary system (principal)
CPT/HCPCS: 87077; 81003; 81015; 87086; 87186

== ENCOUNTER 2023-02-24 00:13 | Outpatient (CLI) | payer MEDICARE, BC, SELFPAY ==
--- NOTE | 2023-02-24 06:45 | DI.MRI_ITS ---
Exam(s) MR LOWER JOINT LT WO EXAM: MR LOWER JOINT LT WO CLINICAL HISTORY: left knee instability, pain, hx of TKR,M23.52,Z96.652. TECHNIQUE: Multiplanar multisequence MRI was performed. COMPARISON: There are no priors for comparison. FINDINGS: Examination is limited due to artifact from the patient's right total knee replacement. BONES: There is no fracture or contusion pattern. JOINTS: The patient has a right total knee replacement. No effusion is present. TENDONS: Extensor mechanism: Unremarkable. Medial retinaculum: Unremarkable. Lateral retinaculum: Unremarkable. MUSCLES: Unremarkable. MENISCI: The patient has a right total knee replacement. SOFT TISSUES: Unremarkable. LIGAMENTS: Medial Collateral:Unremarkable. Lateral Collateral: Unremarkable. OTHER: IMPRESSION: 1. The patient has a right total knee replacement. Replacement appears grossly unremarkable on this examination though significant artifact is present. 2. No acute abnormality. 3. If there is concern for loosening or infection and bone scan should be considered for further eval uation. Plain films of the knee should also be obtained. DATA REPOSITORY:
== END 2023-02-24 00:33 ==
LOC: DI 00:13
PROVIDERS: PCP Nurse Practitioner Family; Visit Provider Nurse Practitioner Family
DX: M23.52 Chronic instability of knee, left knee (principal); Z96.652 Presence of left artificial knee joint
CPT/HCPCS: 73721

== ENCOUNTER → 2023-03-06 09:58 | Outpatient (BNVA) | payer MEDICARE, BC, SELFPAY | PROVIDERS: PCP Nurse Practitioner Family; Referring Provider Nurse Practitioner Family | DX: M70.52 Other bursitis of knee, left knee (principal); M76.32 Iliotibial band syndrome, left leg; Z96.653 Presence of artificial knee joint, bilateral; M54.50 Low back pain, unspecified | CPT/HCPCS: 99213 ==

== ENCOUNTER 2023-03-20 04:58 | Outpatient (CLI) | payer MEDICARE, BC, SELFPAY ==
[2023-03-20 14:42] LABS: Abs Immature Grans 0.06 10^3/uL (0.0-0.06); Absolute Basophil Count 0.04 10^3/uL (0.0-0.2); Absolute Eosinophil Count 0.16 10^3/uL (0.0-0.7); Absolute Lymphocyte Count 1.99 10^3/uL (1.2-3.4); Absolute Monocyte Count 0.67 10^3/uL (0.1-0.8); Absolute Neutrophil Count 4.99 10^3/uL (1.2-6.7); Basophils % 0.5; HCT 38.2 % (36.0-46.0); HGB 12.8 g/dL (11.2-15.7); Immature Grans % 0.8; Lymphocytes % 25.2; MCH 29.2 pg (27.0-33.0); MCHC 33.5 % (32.0-36.0); MCV 87 fL (80-95); MPV 9.2 fL (8.0-11.0); Monocytes % 8.5; Platelet Count 333 10^3/uL (130-400); RBC 4.38 10^6/uL (3.93-5.22); RDW 18.1 % (11.7-14.6); RDW-SD 57.9 fL; WBC 7.91 10^3/uL (4.4-10.8)
[2023-03-20 15:32] LABS: TSH (W/Ref FT4) 2.62 uIU/mL (0.36-3.74)
== END 2023-03-20 04:59 | disposition home or self-care (01) ==
PROVIDERS: PCP Nurse Practitioner Family; Visit Provider Nurse Practitioner Family
DX: R53.83 Other fatigue (principal); K21.9 Gastro-esophageal reflux disease without esophagitis; I10 Essential (primary) hypertension; E03.9 Hypothyroidism, unspecified
CPT/HCPCS: 36415; 84443; 85025

== ENCOUNTER 2023-04-19 08:51 | Emergency (ER) | payer MEDICARE, BC, SELFPAY ==
[2023-04-19] VITALS (20 sets, daily range): BP systolic 138–162; BP diastolic 45–78; PULSE 74–91; RESP 14–36; TEMP 36.6–36.8; O2SAT 92–99
--- NOTE | 2023-04-19 09:00 | RT.EKG_ITS ---
APPROVED REPORT Exam: Resting ECG Reason for Exam: sob Patient Location: E HR:80 bpm ECG Measurements Heart Rate [address] 161 P 38 QRSd 131 QRS -23 QT 399 T 132 QTc 460 Conclusion Sinus rhythm...normal P axis, V-rate 60- 99 Left bundle branch block...QRSd>120, broad/notched R ST elevation secondary to IVCD...Multiple VCG criteria Agree with above. LAD. no previous available for comparison
--- NOTE | 2023-04-19 09:09 | ED.GENADUL_ITS ---
Discharge Plan Disposition Patient Disposition: Home Condition: Stable Discharge Details Clinical Impression: Metastatic neoplastic disease, Metastatic cancer to bone, Pathologic compression fracture of vertebra, Acute UTI Primary Care Provider: Guerda Haywood ED Provider: Jessie Barrios Home Meds and New Rx's Prescriptions: New oxycodone 5 mg capsule 5 mg PO Q6H PRNQty: 10 0RF Rx Instructions: Do not drive, alcohol, operate heavy machinery or make important decisions while taking this medication. It can be habit-forming and can also cause constipation. nitrofurantoin monohyd/m-cryst [Macrobid] 100 mg capsule 100 mg PO Q12H 7 Days Qty: 14 0RF Rx Instructions: must administer with a meal/food. May stop after 3 days if there are no further symptoms. No Action cholecalciferol (vitamin D3) 50 mcg (2,000 unit) capsule 50 mcg PO DAILY [id number] 333-133-5 mg tablet See Rx Instructions PO DAILY Rx Instructions: PO daily; calcium carbonate [Tums] 200 mg calcium (500 mg) tablet,chewable 200 mg PO PRN Complex B-100 Tablet Extended Release 1 tab PO DAILY omeprazole 40 mg capsule,delayed release(DR/EC) 40 mg PO DAILY Qty: 90 3RF amlodipine 5 mg tablet 5 mg PO DAILY Qty: 90 3RF levothyroxine [Synthroid] 50 mcg tablet 50 mcg PO DAILY Qty: 90 3RF Hold Instructions: Evaluating necessity given negative thyroid antibodies turmeric root extract 500 mg tablet 500 mg PO DAILY acetaminophen [Acetaminophen Extra Strength] 500 MG tablet 500 - 1,000 tab PO BID multivitamin [Daily Multi-Vitamin] 1 EACH tablet 1 ea PO DAILY mometasone 0.1 % cream 1 applic topical DAILY PRN (Reason: skin irritation) Qty: 45 0RF Patient Comments: PT states not taking ML 04/19/23 lutein-zeaxanthin 20 mg- 1,000 mcg Capsule 1 cap PO DAILY celecoxib [Celebrex] 200 mg capsule 200 mg PO BID PRN (Reason: pain) Rx Instructions: Take one tablet per day and a second as needed. Discharge Instructions Instructions: Probiotic (By mouth), Urinary Tract Infection in Women (ED), Vertebral Compression Fracture (ED), Bone Metastasis (ED) Additional Instructions: 1. Alternate acetaminophen every 3 hours with 400 to 600 mg of ibuprofen as needed for pain. You may take oxycodone for severe pain not relieved by ov [id number] medications. You should not drink alcohol, drive, operate heavy machinery or make important decisions while taking this medication. It can be habit-forming and can also cause drowsiness and constipation. 2. Call your oncologist at [facility] and arrange for follow-up appointment. Return here for any new or worrisome symptoms. Your CT scan was sent to [facility] and should be available for them to review. 3. Start Macrobid 100 mg every 12 hours for your urinary tract infection. If your symptoms have completely resolved after 3 days you can stop the medication. If you have any symptoms you should continue the antibiotics for 7 days. A culture was done and will be resulted in 48 hours. 4. Return here for any new or worrisome symptoms or concerns. Discharge Data Discharge Physician: Jessie Barrios Medical Decision Making This is a 77-year-old female with a history of breast cancer who presents with back pain radiating around to the left chest which is pleuritic and she has associated shortness of breath. I am concerned about a PE. We will check a CBC for leukocytosis and anemia as well as left shift. We will check a comprehensive metabolic panel for renal function and electrolytes and liver function tests. I will check a D-dimer but if her renal function is normal I will obtain a CTA of the chest and CT with IV contrast of abdomen and pelvis. I will write for pain medications and we will establish an IV and give fluids. I will calculate her PERC score. Disposition will be dependent on ancillary services. She does have back pain but denies any saddle anesthesia, numbness tingling or weakness in her legs bowel or bladder incontinence or retention. We will check a urine for evidence of infection Differential Diagnosis Differential Diagnosis: Pleuritic chest pain, PE, musculoskeletal chest and back pain Medical Records Medical records reviewed: Yes I reviewed the patient's medical records. Imaging Data Radiologic Study: Imaging: CT Scan (CTA chest. CT abdomen and pelvis with IV contrast) Radiologist's impression: 1. No evidence of aortic dissection. Enlarged right axillary lymph nodes. 2. Widespread bony metastatic disease in the chest abdomen and pelvis. There is encroachment into the central canal at the right-sided T4 level. 3. Compression fractures of T10 and T11. 4. Findings discussed with me. ECG Data Attestation: I personally reviewed and interpreted this ECG (s) as follows: Prior ECG tracings: available for review HPI General Mode of arrival: wheelchair . Date/Time Provider Initiated Documentation: 04/19/23 08:52 . Limitations to Documentation: no limitations . Information obtained by: patient, family, RN notes reviewed and old records reviewed . History of Present Illness described as severe, with intensity rated at 10. Patient did receive the following treatments prior to arrival, none HPI Narrative: Time seen was on arrival in bed 6. Patient is a 77-year-old female, with a history of breast cancer on the left brought in by her for back pain, abdominal pain and shortness of breath. 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 The patient has a history of chronic cough but does not use oxygen at home and does not have any history of COPD or asthma. She does not smoke. She has been doing PT for her back. She states that she her shortness of breath got worse especially today. The pain in her back is constant sharp and does not radiate down the legs. She denies any saddle anesthesia or bowel or bladder incontinence or retention. She is complaining of constipation. Her last bowel movement was 2 days ago. She states this is normal for her. Her pain is located in upper back. It radiates around the left side to the left upper quadrant. She denies any change in cough or URI symptoms. No shortness of breath is worse with deep inspiration. She denies any leg pain or swelling. She has had several joint replacements but no recent surgeries or immobility. She denies any history of PE. She denies any fevers or chills. She usually takes Celebrex and acetaminophen for pain but has not taken anything today. Her pain is currently 10 out of 10 in severity. The patient denies any past abdominal surgeries. She had a breast biopsy on the right which was negative. And a lumpectomy on the left for breast cancer. She also had a port in the left anterior chest wall which has since been removed. The patient is retired nurse who lives in [place] but retired in [place]. She did see her primary care provider several days ago but was not experiencing the shortness of breath at that time. She denies any fevers or chills. She denies any dysuria. She described the pain as sharp and worse with deep inspiration. She does have a history of hypothyroidism. She also endorses weight loss. She states both her and her have lost weight since October but could not give me an exact amount. She attributes it to not eating as much. She also states she is deaf in her left ear. She tells me she has allergies to Reglan and Compazine but could not tell me the reaction but stated it was not swelling or hives. Related Data Home Medications Medication Instructions Recorded Confirmed acetaminophen 500 mg tablet 500 - 1,000 tab PO BID 10/18/12 04/19/23 (Acetaminophen Extra Strength) multivitamin (Daily Multi-Vitamin 1 ea PO DAILY 04/14/17 04/19/23 tablet) lutein 20 mg-zeaxanthin 1,000 mcg 1 cap PO DAILY 03/09/20 04/19/23 capsule [id number] 333 mg-133 See Rx Instructions PO DAILY 10/15/21 04/19/23 mg-5 mg tablet cholecalciferol (vitamin D3) 50 50 mcg PO DAILY 10/15/21 04/19/23 mcg (2,000 unit) capsule calcium carbonate 200 mg calcium 200 mg PO PRN 02/10/22 04/19/23 (500 mg) chewable tablet (Tums) mometasone 0.1 % topical cream 1 applic topical DAILY PRN skin 09/19/22 04/17/23 irritation #45 grams turmeric root extract 500 mg tablet 500 mg PO DAILY 10/10/22 04/19/23 vitamin B complex (Complex B-100 1 tab PO DAILY 02/06/23 04/19/23 tablet,extended release) omeprazole 40 mg capsule,delayed 40 mg PO DAILY #90 tab-caps 03/17/23 04/19/23 release amlodipine 5 mg tablet 5 mg PO DAILY #90 tab-caps 04/17/23 04/19/23 levothyroxine 50 mcg tablet 50 mcg PO DAILY #90 tab-caps 04/17/23 04/19/23 (Synthroid) celecoxib 200 mg capsule (Celebrex) 200 mg PO BID PRN pain 04/19/23 04/19/23 nitrofurantoin 100 mg PO Q12H 7 days #14 caps 04/19/23 monohydrate/macrocrystals 100 mg capsule (Macrobid) oxycodone 5 mg capsule 5 mg PO Q6H PRN #10 caps 04/19/23 Previous Rx's Medication Instructions Recorded mometasone 0.1 % topical cream 1 applic topical DAILY PRN skin 09/19/22 irritation #45 grams omeprazole 40 mg capsule,delayed 40 mg PO DAILY #90 tab-caps 03/17/23 release amlodipine 5 mg tablet 5 mg PO DAILY #90 tab-caps 04/17/23 levothyroxine 50 mcg tablet 50 mcg PO DAILY #90 tab-caps 04/17/23 (Synthroid) nitrofurantoin 100 mg PO Q12H 7 days #14 caps 04/19/23 monohydrate/macrocrystals 100 mg capsule (Macrobid) oxycodone 5 mg capsule 5 mg PO Q6H PRN #10 caps 04/19/23 Allergies Allergy/AdvReac Type Severity Reaction Status Date / Time prochlorperazine edisylate AdvReac Intermediate agitation Verified 04/19/23 10:02 [From Compazine] prochlorperazine maleate AdvReac Intermediate agitation Verified 04/19/23 10:02 [From Compazine] metoclopramide HCl AdvReac disorientat Verified 04/19/23 10:02 [From Reglan] ion General TRAVIS: 3 Review of Systems Narrative: see hpi Constitutional Constitutional: Denies chills, Denies fever(s), Denies frequent falls, Denies headache(s), Denies weakness and Reports weight loss Eyes Eyes: Reports as per HPI ENT Ears, Nose, Mouth, and Throat: Reports abnormal hearing, Denies dizziness, Denies headache(s), Denies lip swelling, Denies nasal discharge and Denies sore throat Cardiovascular Cardiovascular: Denies chest pain, Denies leg edema, Reports dyspnea and Reports dyspnea on exertion Comments: The patient denied any history of coronary disease. She denies any anterior chest pain Respiratory Respiratory: Reports as per HPI, Reports pain on inspiration, Reports dyspnea and Reports dyspnea on exertion Comments: Chronic cough nonproductive. No change in cough. Pleuritic chest pain Gastrointestinal Gastrointestinal: Reports as per HPI, Reports abdominal pain, Denies hematochezia, Reports constipation, Denies vomiting and Denies hematemesis Comments: Her abdominal pain radiates to the left upper quadrant. She is constipated. Genitourinary Genitourinary: Reports as per HPI, Denies dysuria, Denies pelvic pain and Denies urinary urgency Comments: She denies any bowel or bladder incontinence or retention. She denies any saddle anesthesia Musculoskeletal Musculoskeletal: Denies numbness and Denies tingling Comments: Back pain. She has been receiving PT. Her back pain has moved. Integumentary/Breasts Comments: The patient does have a history of breast cancer of the left breast many years ago. She denies any rashes Neurologic Neurologic: Reports abnormal hearing, Denies abnormal movements, Denies dizziness, Denies frequent falls, Denies headache(s), Denies localized weakness, Denies numbness, Denies radicular pain, Denies sensory deficit, Denies tingling and Denies weakness Endocrine Endocrine: Reports as per HPI Hematologic/Lymphatic Comments: The patient is not on therapeutic anticoagulants Allergic/Immunologic Allergic/Immunologic: Denies lip swelling Comments: As per HPI. PFSH All Active Problems (Updated 04/19/23 @ 13:36 by Jessie Barrios MD) Metastatic neoplastic disease (Acute) Metastatic cancer to bone (Acute) Pathologic compression fracture of vertebra (Acute) Acute UTI (Acute) Multiple sclerosis (Chronic) Relapsing-remitting MS History of left breast cancer (Chronic ~2010) Left IDC s/p lumpectomy, chemo, radiation Obstructive sleep apnea (Chronic) Declines CPAP Hypothyroidism (Chronic) Essential hypertension (Chronic) Chronic cough (Chronic) Osteoarthritis (Chronic) Iliotibial band syndrome, left leg (Chronic) Pes anserinus bursitis of left knee (Chronic) Rotator cuff tear, right (Chronic) Recurrent left knee instability (Chronic) Primary fibromyalgia syndrome (Chronic) Fibromyalgia Left ovarian cyst (Chronic) Gastroesophageal reflux disease (Chronic) Hiatal hernia (Chronic) Weight loss, unintentional (Chronic) First degree hemorrhoids (Chronic) Maringouin's disease (Chronic) Sensorineural hearing loss of left ear (Chronic) Allergic rhinitis (Chronic) Rosacea (Chronic) Medical History Depressive disorder Dysfunctional uterine bleeding Invasive ductal carcinoma of left breast (~2010) S/p lumpectomy, chemo, radiation Left upper lobe pulmonary nodule Stable since 2011 Rectal bleeding Surgical History History of bilateral ligation of fallopian tubes (1971) History of thumb surgery (~1999) Bilateral thumb arthroplasty Hx of cataract surgery S/P colonoscopy (2019) S/P ORIF (open reduction internal fixation) fracture (2009) Right wrist S/P right knee arthroscopy (1991) S/P YAG capsulotomy, bilateral Status post carpal tunnel release (~2009) Status post lateral meniscectomy of right knee (1961) Status post left foot surgery (2016) Exostectomy Status post left knee replacement (2005) Status post partial mastectomy of left breast (2010) Status post revision of total replacement of right knee (2012) Status post right breast lumpectomy (1988) Status post right knee replacement (1996) Status post total hip replacement, right (2014) Family History Mother Diabetes Lung cancer Hypertension Father Stroke Hypertension Lung cancer Sister Dementia Hypertension Brother Diabetes Hypertension Liver cancer Daughter No problems noted. Daughter No problems noted. Maternal Grandfather No problems noted. Maternal Grandmother No problems noted. Paternal Grandfather No problems noted. Paternal Grandmother No problems noted. Social History Smoking/Tobacco Use Status: Never Smoking risk assessment performed?: Yes Alcohol Intake: current Alcohol Intake frequency: a few times a week Alcohol type: wine Drug use: Never Substance use type: does not use Household members: spouse Communication Needs: Deaf Pets and animals: No Current gender identity: female What is your relationship status?: How often do you talk on the phone with friends or family?: three or more times per week How often do you get together with friends or relatives?: once per week Do you belong to any clubs or organized social groups?: no Panel score (0-1 are the most socially isolated patients): 2 Margaret/Buddhism: No preference Do you feel safe at home: Yes Do you feel safe in your relationship?: Yes Female Reproductive History Menstrual Menopause type: natural Exam Narrative Exam Narrative: The patient is well-developed well-nourished female who is mildly short of breath and appears unable to speak in full sentences. It is difficult to assess whether this is from her shortness of breath or her back pain. She was placed on supplemental oxygen because she did appear mildly short of breath Const General: cooperative, healthy appearing, well developed, well groomed, anxious and other Nutritional Appearance: average body habitus and well nourished Orientation: alert, awake and oriented x3 Other: The patient appears mildly uncomfortable especially when she moves HENMT Head: normal to inspection, normocephalic and atraumatic Ears: hearing grossly normal bilaterally and external ears normal General nose exam: external nose normal, nares normal and no nasal discharge Face and sinus: normal facial exam, sinuses nontender and face symmetric Mouth: oral mucosae normal, lip normal, tongue normal, oropharynx normal and other (Normal phonation. The patient is handling secretions.) Throat: posterior oropharynx normal and uvula midline Eyes General: appearance normal, both eyes and all related structures Eyelids: eyelids normal Conjunctivae: conjunctivae normal Sclera: sclerae normal Cornea: corneas normal Pupils: PERRL EOM: EOM intact bilaterally and No nystagmus Other: The patient has had bilateral lens implants. Neck Neck: normal visual inspection, full ROM, no lymphadenopathy, no meningeal signs, trachea midline and supple Lymphatic: no lymphadenopathy noted Chest Chest: normal inspection of the chest Other: Her breast reveals well-healed surgical scars bilaterally. No edema erythema. Nipples appear normal Resp Effort & Inspection: normal respiratory effort, no audible wheezes, no nasal flaring, no respiratory distress, no retractions, no stridor, not tachypneic, no tracheal deviation, no use of accessory muscles, No prolonged expiratory phase and other (Normal inspiratory to expiratory ratio.) Auscultation: clear to auscultation bilaterally, no rales, no rhonchi, no whee zes and no rubs Tactile Fremitus: tactile fremitus absent Cardio Jugular venous pressure: no JVD Palpation: normal PMI Rate: regular rate Rhythm: regular rhythm Heart Sounds: S1 normal, S2 normal, no gallops, no murmurs and no rubs Pulses: dorsalis pedis present and normal peripheral pulses GI Inspection: normal to inspection and non-distended Palpation: soft, no hepatosplenomegaly and no guarding Percussion: normal to percussion Auscultation: normal bowel sounds Other: The patient has mild left upper quadrant tenderness. No rebound or guarding. General: No CVA tenderness Back/Spine/Pelvis Back: no CVA tenderness and No back tenderness Cervical Spine: normal cervical lordosis, cervical ROM normal, No cervical muscular tenderness, No pain with cervical ROM, No cervical spinal tenderness and No step off deformity Thoracic/Lumbar Spine: thoracic and lumbar spine normal to inspection, No thoracic spinal tenderness and No lumbar spinal tenderness Pelvis: no pain with anterior-posterior compression and no pain with lateral compression Other: No midline tenderness step-off or bony crepitus. Mild Skin General skin exam: no rashes or lesions noted, turgor normal, no petechiae, no purpura and other (Skin is normal for ethnicity.) Lesions: no lesions Rashes: no rashes Trauma: no lacerations or abrasions Other: The patient has a well-healed surgical scar over the volar aspect of the right wrist Neuro General: patient alert, patient awake, patient oriented x3, moves all extremities, no meningeal signs, no focal motor deficits and CN's II-XI intact bilaterally Cranial Nerves: CN's II-XI intact bilaterally, PERRL, accommodation normal, EOM intact bilaterally, no nystagmus, facial strength normal, tongue midline, hearing normal (Patient has decreased hearing in the left ear) and no nystagmus Cognition: normal cognition Speech: speech normal Gait: normal gait Motor: muscle tone normal throughout and strength 5/5 throughout Sensory Exam: no sensory deficits noted Pupils: Normal pupillary reactivity/response: bilateral Other: Negative straight leg raise bilaterally Extrem General: normal to inspection, full ROM, capillary refill normal and no clubbing, cyanosis or edema Other: Mild tenderness of the right calf Psych Appearance: grossly normal Affect: normal affect Attitude: cooperative Thought Process: normal Thought Content: normal Insight: insight good Judgment: judgment good Other: The patient appears to have capacity make medical decisions. Course Reevaluation(s) Time: 13:20 Reevaluation: The radiologist has called me about the findings of diffuse metastatic disease to ribs vertebral bodies and pelvis. I have notified the patient and her of the findings. She is visibly disturbed as would expect. I addressed as many of their concerns as occurred prior to discharge. she also has had urinary frequency and slight amount of burning. We will treat her UTI with Macrobid and discharge her home with oxycodone. She is aware a urine is pending. Her oncologist is at [facility] and she would like to be discharged home with follow-up with [facility] cardiology Lab/Test Results Lab/Test Results: Elevated white count elevated D-dimer normal renal function elevated alk phos normal TSH urine is positive for protein blood nitrite leukocyte Estrace red and white cells. Procedures Other Description: Insertion of peripheral IV in the right forearm. After verbal consent, an appropriate timeout, 1% plain lidocaine was used to anesthetize the right forearm and a 20-gauge needle was placed in the right forearm with excellent blood return and good flushing. The patient tolerated the procedure well. Critical Care Time Critical Care Time Total Critical Care Time: 37 Attestation: This includes time at the bedside with the patient and family, review of radiographs lab work and EKG
--- NOTE | 2023-04-19 09:09 | DI.CT_ITS ---
Exam(s) CT THORAX ABD/PEL CTA EXAM: CT THORAX ABD/PEL CTA CLINICAL HISTORY: pleuritic back pain and SOB. TECHNIQUE: Imaging Protocol: Axial CT angiography was performed with multi-slice acquisition and mu lti-planar and/or 3D reconstructions. CONTRAST MATERIAL: Intravenous: Omnipaque 350 Contrast volume:100 ml COMPARISON: CT CT ABDOMEN PELVIS W from 03/09/[address] CHEST WO from 07/04/2022 CR XR LUMBAR SPINE COMPLETE from 01/09/2023 CR XR HIP LT COMPLETE AP PELVIS from 01/09/2023 MR MR LOWER JOINT LT WO from 02/24/2023 FINDINGS: CHEST: Pulmonary Arteries: No evidence of filling defects to suggest pulmonary emboli. Tracheobronchial tree: No bronchiectasis or mucus plugging. Mediastinum and Antonia: No dominant adenopathy or fluid collection. Moderate size hiatal hernia. Pulmonary parenchyma: No consolidation. Stable 9 millimeter nodule medial left upper lobe. Pleura: No effusion. No pneumothorax. Heart: Dilated left atrium. Mitral annular calcification.. Minimal coronary artery calcifications a re seen. Aorta: Thoracic aorta non-dilated. Ropb-jj-[id number] atherosclerotic changes. Bones: Diffusely mottled appearance of the bone with multiple lytic and sclerotic lesions thoracic sp ine, sternum and ribs.. There is a large lesion on the right side at T4 involving the lamina and pedi josie with some encroachment into the central canal. Mild compression fracture T10. Moderate compressio n fracture of T11. Tubes, Catheters, and Lines: None. Lymph nodes: No enlarged mediastinal or hilar lymph nodes. Abnormally enlarged right axillary lymph n odes are noted measuring up to 2 cm in size. ABDOMEN and PELVIS: Liver: Normal size. Normal density. No suspicious measurable mass. Portal, Superior Mesenteric, and Splenic Veins: Unremarkable. Gallbladder and Biliary Tract: No radiodense calculus. No biliary dilatation. Pancreas: Normal density, no abnormal calcifications or inflammatory process. Spleen: Normal. Adrenals: No masses seen. Kidneys: Normal size, contour and axis. No radiodense stones. No obstructive uropathy. No masses seen . Vasculature: Abdominal portion non-dilated. Bowel: Diverticulosis. No evidence of diverticulitis. No obstruction or bowel wall thickening. . Peritoneal Cavity: No ascites, collection or mesenteric inflammatory response. Lymph Nodes: Within normal limits. Soft Tissues: Unremarkable. Bladder: Symmetric distention, no gross wall thickening. Reproductive Organs: Stable left ovarian cyst. Lymph Nodes: Within normal limits. Bones: Diffusely mottled appearance of the bone with multiple lytic and sclerotic lesions. Some encro achment into the central canal at the L3-4 level of secondary to enlargement of the right facet joint region. There appears to be prior surgery at this level as well. Right hip prosthesis creates artifa ct in the pelvis. IMPRESSION: 1. No evidence of aortic dissection. Enlarged right axillary lymph nodes. 2. Widespread bony metastatic disease in the chest abdomen and pelvis. There is encroachment into the central canal at the right-sided T4 level. 3. Compression fractures of T10 and T11. 4. Findings discussed with Dr. Barrios of the emergency department. RADIATION DOSE DELIVERED: 754.05mGy.cm Total DLP 754.05mGy.cm Total DLP DATA REPOSITORY: All CT scans at this facility are submitted to the National Radiology Data Registry (NRDR) Dose Index Registry (DIR) with the [employer] (A[employer]). RADIATION OPTIMIZATION: All CT scans at this facility use at least one of these dose optimization te chniques: automated exposure control; mA and/or kV adjustment per patient size (includes targeted exa ms where dose is matched to clinical indication); or iterative reconstruction.
[2023-04-19] MEDS: ACETAMINOPHEN 1,000 MG/100 ML BTL 400 MG IVPB (10:31)
[2023-04-19] MEDS: Normal Saline 1,000 ML 1000 ML IV (10:33)
[2023-04-19 10:51] LABS: Abs Immature Grans 0.14 10^3/uL (0.0-0.06); Absolute Basophil Count 0.05 10^3/uL (0.0-0.2); Absolute Eosinophil Count 0.14 10^3/uL (0.0-0.7); Absolute Lymphocyte Count 2.11 10^3/uL (1.2-3.4); Absolute Monocyte Count 0.93 10^3/uL (0.1-0.8); Absolute Neutrophil Count 8.21 10^3/uL (1.2-6.7); Basophils % 0.4; Eosinophils % 1.2; HCT 41.9 % (36.0-46.0); HGB 14.1 g/dL (11.2-15.7); Immature Grans % 1.2; Lymphocytes % 18.2; MCH 29.1 pg (27.0-33.0); MCHC 33.7 % (32.0-36.0); MCV 87 fL (80-95); MPV 9.1 fL (8.0-11.0); Platelet Count 343 10^3/uL (130-400); RBC 4.84 10^6/uL (3.93-5.22); RDW 18.5 % (11.7-14.6); RDW-SD 56.8 fL; WBC 11.57 10^3/uL (4.4-10.8)
[2023-04-19 10:55] LABS: COVID-19 PCR Negative (Negative); Influenza A PCR Negative (Negative); Influenza B PCR Negative (Negative); RSV PCR Negative (Negative)
[2023-04-19 11:27] LABS: Bilirubin Negative (Negative); Blood Moderate (Negative); Clarity Cloudy (Clear); Glucose Negative (Negative); Ketones Negative (Negative); Leukocyte Esterase Moderate (Negative); Nitrite Positive (Negative); Specific Gravity 1.015 (1.005-1.025); Urobilinogen 0.2 mg/dL (Up to 0.2); pH 6.5 (5-8)
[2023-04-19 11:32] LABS: Bacteria Many HPF (Negative); C & S Indicated? Yes; Casts Negative LPF (Negative); Crystals Negative HPF (Negative); Epithelial Cells Rare HPF (Negative); Mucus Negative (Negative); RBC 20-50 HPF (0-2); WBC 20-50 HPF (0-5)
[2023-04-19 11:46] LABS: Source Nasopharynx
[2023-04-19 11:50] LABS: PTT Activated 27.1 sec (21.5-31.9); Prothrombin Time 10.4 sec (9.3-11.0)
[2023-04-19 12:01] LABS: ALT 19 U/L (14-59); AST 51 U/L (15-37); Albumin 3.4 g/dL (3.4-5.0); Alkaline Phosphatase 180 U/L (46-116); Anion Gap 11.8 mmol/L (3-11); BUN 17 mg/dL (7-18); Bilirubin, Total 0.5 mg/dL (0.2-1.0); CO2 24.2 mmol/L (21.0-32.0); CREATININE 0.8 mg/dL (0.55-1.02); Calcium 11.3 mg/dL (8.5-10.1); Chloride 103 mmol/L (98-107); Glucose 98 mg/dL (74-106); Potassium 3.8 mmol/L (3.5-5.1); Sodium 139 mmol/L (136-145); TSH (W/Ref FT4) 2.67 uIU/mL (0.36-3.74); Total Protein 8.5 g/dL (6.4-8.2); Troponin I < 50 ng/L (<or=60)
[2023-04-19 12:07] LABS: D-Dimer 3712 ng/mlFEU (<500)
[2023-04-19] MEDS: Omnipaque 350 MG/ML 500 ML BTL-Imaging package IJ (12:09)
[2023-04-19] MEDS: Normal Saline - Diluent 50 ML VIAL IJ (12:10)
[2023-04-19] MEDS: HYDROmorphone 2 MG/ML SYR 0.5 MG IVP (13:36)
[2023-04-19] MEDS: MacroBID 100 MG CAP PO (13:36)
--- NOTE | 2023-04-20 09:19 | NUR.NOTE ---
Accessed pt chart to determine number of EKG orders. Duplicate order cancelled. Nursing Note:
[2023-04-20 17:57] LABS: Lab Add On Test DONE
[2023-04-20 18:14] LABS: Calculated LDL 90 mg/dL (<100); Cholesterol 179 mg/dL (<200); HDL Cholesterol 62 mg/dL (40-60); Triglyceride 138 mg/dL (<150)
[2023-04-24 09:37] LABS: Hepatitis C Ab w Rflx HCV PCR Negative (Negative)
== END 2023-04-19 14:20 | disposition home or self-care (01) ==
PROVIDERS: Emergency Provider Emergency Medicine Emergency Medical Services; PCP Nurse Practitioner Family
DX: R06.02 Shortness of breath; C79.51 Secondary malignant neoplasm of bone; C50.919 Malignant neoplasm of unspecified site of unspecified female breast; M84.58XA Pathological fracture in neoplastic disease, other specified site, initial encounter for fracture; N39.0 Urinary tract infection, site not specified; G89.29 Other chronic pain; Z79.899 Other long term (current) drug therapy; E03.9 Hypothyroidism, unspecified; Z88.8 Allergy status to other drugs, medicaments and biological substances; Z88.5 Allergy status to narcotic agent; G35 Multiple sclerosis; I10 Essential (primary) hypertension
CPT/HCPCS: 36415; 71275; 80053; 80061; 86803; 87077; 87637; 93005; 96361; 96374; 99285; 74174; 81003; 81015; 84443; 84484; 85025; 85379; 85610; 85730; 87086; 87186; 93010; J0131; J1170

== ENCOUNTER 2023-04-21 15:21 | Observation (INO) | payer MEDICARE, BC, SELFPAY ==
[2023-04-21 15:32] VITALS: BP 123/66; PULSE 100; RESP 18; TEMP 36.5; O2SAT 94
[2023-04-21 16:42] VITALS: BP 128/62; TEMP 37.1; O2SAT 93
[2023-04-21] MEDS: Ketorolac 30 MG/ML VIAL IVP (17:41)
[2023-04-21] MEDS: fentaNYL 12 MCG PATCH TD (17:41)
--- NOTE | 2023-04-21 17:43 | NUR.NOTE ---
Nursing Note:Went to apply Lidocaine patches on Pts back as ordered, pt had clifton from heating pad on back, provider aware, provider states verbally to not apply patches.
[2023-04-21] MEDS: ACETAMINOPHEN 1,000 MG/100 ML BTL 400 MG IVPB (17:51)
[2023-04-21] MEDS: Normal Saline 1,000 ML 150 ML IV ×2 (18:15→20:55)
--- NOTE | 2023-04-21 18:24 | W.ED.GENAD ---
Discharge Plan Disposition Patient Disposition: Admit to [facility] Condition: Stable Discharge Details Clinical Impression: Intractable back pain Admit Date/Time: 04/21/23 18:31 Admit Provider: Gunner Wren Attending Provider: Gunner Wren Primary Care Provider: Guerda Haywood ED Provider: Wendy Mahoney Medical Decision Making Patient presents with intractable back pain associated with metastatic cancer and compression fracture. States her symptoms are unchanged but just not responding to the pain medication that she has been provided. She is using oxycodone 5 mg up to 4 times daily her last dose was at noon. IV established patient given acetaminophen 1000 mg IV Toradol 15 mg IV and fentanyl patch 12 mics applied. Discussed discharge versus observation admission and patient wishes for observation admission to make sure that pain is better controlled. Ordered 0.5 mg of Dilaudid which she did not need to receive as her pain seemed better managed. Her case was discussed with hospitalist who agrees for observation admission overnight for further medication adjustments as needed. Medical Records Medical records reviewed: Yes I reviewed the patient's medical records. Medical records narrative: Reviewed previous record from her visit on Monday. HPI General Mode of arrival: ambulatory. Date/Time Provider Initiated Documentation: 04/21/23 16:08. Limitations to Documentation: no limitations. Information obtained by: patient. HPI Narrative: This is 77-year-old female patient with metastatic cancer to the spine with compression fractures. She was started on oxycodone for her symptoms and has had no relief. She contacted her PCP office who sent her here for evaluation. She has had no new symptoms other than this uncontrolled pain. Related Data Home Medications Medication Instructions Recorded Confirmed acetaminophen 500 mg tablet 500 - 1,000 tab PO BID 10/18/12 04/21/23 (Acetaminophen Extra Strength) multivitamin (Daily Multi-Vitamin 1 ea PO DAILY 04/14/17 04/21/23 tablet) lutein 20 mg-zeaxanthin 1,000 mcg 1 cap PO DAILY 03/09/20 04/21/23 capsule [id number] 333 mg-133 See Rx Instructions PO DAILY 10/15/21 04/21/23 mg-5 mg tablet cholecalciferol (vitamin D3) 50 50 mcg PO DAILY 10/15/21 04/21/23 mcg (2,000 unit) capsule calcium carbonate 200 mg calcium 200 mg PO PRN 02/10/22 04/21/23 (500 mg) chewable tablet (Tums) turmeric root extract 500 mg tablet 500 mg PO DAILY 10/10/22 04/21/23 vitamin B complex (Complex B-100 1 tab PO DAILY 02/06/23 04/21/23 tablet,extended release) omeprazole 40 mg capsule,delayed 40 mg PO DAILY #90 tab-caps 03/17/23 04/21/23 release amlodipine 5 mg tablet 5 mg PO DAILY #90 tab-caps 04/17/23 04/21/23 levothyroxine 50 mcg tablet 50 mcg PO DAILY #90 tab-caps 04/17/23 04/21/23 (Synthroid) celecoxib 200 mg capsule (Celebrex) 200 mg PO BID PRN pain 04/19/23 04/21/23 nitrofurantoin 100 mg PO Q12H 7 days #14 caps 04/19/23 04/21/23 monohydrate/macrocrystals 100 mg capsule (Macrobid) naloxone 4 mg/actuation nasal 1 spray intranasal Q2-3M PRN 04/21/23 04/21/23 spray (Narcan) opioid overdose #2 ea oxycodone 10 mg tablet 10 mg PO Q6H PRN pain #60 tabs 04/21/23 04/21/23 Previous Rx's Medication Instructions Recorded omeprazole 40 mg capsule,delayed 40 mg PO DAILY #90 tab-caps 03/17/23 release amlodipine 5 mg tablet 5 mg PO DAILY #90 tab-caps 04/17/23 levothyroxine 50 mcg tablet 50 mcg PO DAILY #90 tab-caps 04/17/23 (Synthroid) nitrofurantoin 100 mg PO Q12H 7 days #14 [facility] 04/19/23 monohydrate/macrocrystals 100 mg capsule (Macrobid) naloxone 4 mg/actuation nasal 1 spray intranasal Q2-3M PRN 04/21/23 spray (Narcan) opioid overdose #2 ea oxycodone 10 mg tablet 10 mg PO Q6H PRN pain #60 tabs 04/21/23 Allergies Allergy/AdvReac Type Severity Reaction Status Date / Time prochlorperazine edisylate AdvReac Intermediate agitation Verified 04/21/23 10:40 [From Compazine] prochlorperazine maleate AdvReac Intermediate agitation Verified 04/21/23 10:40 [From Compazine] metoclopramide HCl AdvReac disorientat Verified 04/21/23 10:40 [From Reglan] ion General Stated Complaint: Nk/Back Pain TRAVIS: 3 Review of Systems All systems reviewed & are unremarkable except as noted in HPI and below PFSH All Active Problems Intractable back pain (Acute) Metastatic neoplastic disease (Acute) Metastatic cancer to bone (Acute) Pathologic compression fracture of vertebra (Acute) Acute UTI (Acute) Multiple sclerosis (Chronic) Relapsing-remitting MS History of left breast cancer (Chronic ~2010) Left IDC s/p lumpectomy, chemo, radiation Obstructive sleep apnea (Chronic) Declines CPAP Hypothyroidism (Chronic) Essential hypertension (Chronic) Chronic cough (Chronic) Osteoarthritis (Chronic) Iliotibial band syndrome, left leg (Chronic) Pes anserinus bursitis of left knee (Chronic) Rotator cuff tear, right (Chronic) Recurrent left knee instability (Chronic) Primary fibromyalgia syndrome (Chronic) Fibromyalgia Left ovarian cyst (Chronic) Gastroesophageal reflux disease (Chronic) Hiatal hernia (Chronic) Weight loss, unintentional (Chronic) First degree hemorrhoids (Chronic) Broadview's disease (Chronic) Sensorineural hearing loss of left ear (Chronic) Allergic rhinitis (Chronic) Rosacea (Chronic) Medical History Depressive disorder Dysfunctional uterine bleeding Invasive ductal carcinoma of left breast (~2010) S/p lumpectomy, chemo, radiation Left upper lobe pulmonary nodule Stable since 2010 Rectal bleeding Surgical History History of bilateral ligation of fallopian tubes (1971) History of thumb surgery (~1999) Bilateral thumb arthroplasty Hx of cataract surgery S/P colonoscopy (2019) S/P ORIF (open reduction internal fixation) fracture (2009) Right wrist S/P right knee arthroscopy (1991) S/P YAG capsulotomy, bilateral Status post carpal tunnel release (~2009) Status post lateral meniscectomy of right knee (1961) Status post left foot surgery (2016) Exostectomy Status post left knee replacement (2005) Status post partial mastectomy of left breast (2010) Status post revision of total replacement of right knee (2012) Status post right breast lumpectomy (1988) Status post right knee replacement (1996) Status post total hip replacement, right (2014) Family History Mother Diabetes Lung cancer Hypertension Father Stroke Hypertension Lung cancer Sister Dementia Hypertension Brother Diabetes Hypertension Liver cancer Daughter No problems noted. Daughter No problems noted. Maternal Grandfather No problems noted. Maternal Grandmother No problems noted. Paternal Grandfather No problems noted. Paternal Grandmother No problems noted. Social History Smoking/Tobacco Use Status: Never Smoking risk assessment performed?: Yes Alcohol Intake: current Alcohol Intake frequency: a few times a week Alcohol type: wine Drug use: Never Substance use type: does not use Household members: spouse Housing: house Communication Needs: Deaf Pets and animals: No Current gender identity: female What is your relationship status?: How often do you talk on the phone with friends or family?: three or more times per week How often do you get together with friends or relatives?: once per week Do you belong to any clubs or organized social groups?: no Panel score (0-1 are the most socially isolated patients): 2 Margaret/Baptism: No preference Do you feel safe at home: Yes Do you feel safe in your relationship?: Yes Female Reproductive History Menstrual Menopause type: natural Exam Const General: cooperative, frail appearing and other Nutritional Appearance: average body habitus Orientation: alert, awake and oriented x3 Other: The patient appears mildly uncomfortable especially when she moves HENMT Head: normal to inspection, normocephalic and atraumatic Ears: hearing grossly normal bilaterally and external ears normal General nose exam: external nose normal, nares normal and no nasal discharge Face and sinus: normal facial exam, sinuses nontender and face symmetric Mouth: oral mucosae normal, lip normal, tongue normal and oropharynx normal Eyes General: appearance normal, both eyes and all related structures Eyelids: eyelids normal Pupils: PERRL Other: The patient has had bilateral lens implants. Neck Neck: normal visual inspection, full ROM, no lymphadenopathy, no meningeal signs, trachea midline and supple Lymphatic: no lymphadenopathy noted Resp Auscultation: clear to auscultation bilaterally Cardio Palpation: normal PMI Rate: regular rate GI Inspection: normal to inspection and non-distended Palpation: soft General: No CVA tenderness Back/Spine/Pelvis Thoracic/Lumbar Spine: kyphosis Skin General skin exam: no rashes or lesions noted Neuro General: patient alert, patient awake and patient oriented x3 Cognition: normal cognition Extrem General: normal to inspection, full ROM, capillary refill normal and no pedal edema Psych Appearance: grossly normal Affect: normal affect Attitude: cooperative Thought Process: normal Course Vital Signs Vital signs: Vital Signs Temperature 36.5 C 04/21/23 15:32 Pulse 100 H 04/21/23 15:32 Respiratory Rate 18 04/21/23 15:32 Blood Pressure 123/66 04/21/23 15:32 Pulse Oximetry 94 04/21/23 15:32 Temperature 37.1 C 04/21/23 16:42 Temperature Source Tympanic 04/21/23 16:42 Pulse 100 H 04/21/23 15:32 Respiratory Rate 18 04/21/23 15:32 Respiratory Effort Normal 04/21/23 18:13 Blood Pressure 128/62 04/21/23 16:42 Blood Pressure Position Sitting 04/21/23 15:32 Pulse Oximetry 93 04/21/23 16:42 Oxygen Delivery Method Room Air 04/21/23 16:42 Oxygen Flow Rate 0 04/21/23 16:42 Pain Level 10 04/21/23 16:42
--- NOTE | 2023-04-21 19:16 | HPE_ITS ---
Date of service: 04/21/23 Time of Service: 19:16 Assessment and Plan Assessment and plan (1) Intractable back pain: Start date: 04/21/23 Status: Acute Assessment and plan: This is a 77-year-old lady who has probable recurrent breast cancer with extensive bony metastases in her skeletal system involving the chest and thoracic spine. She is having pain over her thoracic spine mostly over compression fracture areas where there does not appear to be obvious disease. Pain management has improved with fentanyl patch 12 mcg/h applied along with oxycodone 10 mg p.o. as needed and Dilaudid IV as needed. If, if not effective consider converting to Dilaudid orally along with continuation of fentanyl patch which appears to be effective and not over sedating at this time though the patient is effectively correct IV. She is a full code. (2) Compression fracture of body of thoracic vertebra: Start date: 04/21/23 Status: Acute Assessment and plan: Acute compression fractures at T10-11 which appear not to have metastatic disease involving the vertebral bodies as seen elsewhere on CT scan. Pain management with consideration of kyphoplasty if persistent if patient is a candidate. (3) Breast cancer metastasized to bone: Start date: 04/21/23 Status: Acute Assessment and plan: Patient appears to have metastatic disease in her skeletal system with biopsy needed for confirmation and then treatment plan. She will need a metastatic work-up with oncology to reengage. She is a full code. (4) History of left breast cancer: Status: Chronic Assessment and plan: Patient had breast cancer of the left breast in 2010 status post lumpectomy with radiation therapy and chemotherapy with no recurrence until recently. Ongoing work-up with metastatic bone disease with symptomatic spine compression but other bony metastases apparently not symptomatic. History of Present Illness History of Present Illness Chief Complaint: Back pain for 1 week with acute inc reased intensity 3 days Narrative: This is a 77-year-old female patient who has a history of left breast cancer in 2010 treated with lumpectomy and radiation therapy locally along with chemotherapy. He thought that she had beaten this cancer until recently when she began to have back pain. She had a sudden onset of back pain within this last week worsened 3 days prior to admission acutely with patient not able to tolerate pain at home with oxycodone which appear to not be effective. She went from 5 mg to 10 mg daily but then came to the ED for evaluation because of uncontrolled back pain. She did have midthoracic back discomfort 3 months prior and had physical therapy but the sudden onset of pain recently did reveal compression fractures acute bleeding at T10-11 with a metastatic lesion at T4 encroaching upon the right spinal canal. Imaging also revealed diffuse metastatic bone disease with recent ED visit. She is not having diffuse body pain but only back pain at this time. Most of her discomfort is in the lower thoracic spine which appear to be compression fractures without metastatic lesions. She is currently on arthritis medications and antihypertensives but otherwise is healthy and has had no recent weight loss or decreased appetite. She has had no fever. The patient is a full code. Review of Systems Narrative: 13 point review of systems otherwise unrevealing or stable. He has had no focalizing neurological complaints. [facility] All Active Problems (Updated 04/21/23 @ 22:02 by Gunner Wren) Breast cancer metastasized to bone (Acute) Compression fracture of body of thoracic vertebra (Acute) Intractable back pain (Acute) Metastatic neoplastic disease (Acute) Metastatic cancer to bone (Acute) Pathologic compression fracture of vertebra (Acute) Acute UTI (Acute) Multiple sclerosis (Chronic) Relapsing-remitting MS History of left breast cancer (Chronic ~2010) Left IDC s/p lumpectomy, chemo, radiation Obstructive sleep apnea (Chronic) Declines CPAP Hypothyroidism (Chronic) Essential hypertension (Chronic) Chronic cough (Chronic) Osteoarthritis (Chronic) Iliotibial band syndrome, left leg (Chronic) Pes anserinus bursitis of left knee (Chronic) Rotator cuff tear, right (Chronic) Recurrent left knee instability (Chronic) Primary fibromyalgia syndrome (Chronic) Fibromyalgia Left ovarian cyst (Chronic) Gastroesophageal reflux disease (Chronic) Hiatal hernia (Chronic) Weight loss, unintentional (Chronic) First degree hemorrhoids (Chronic) Arias's disease (Chronic) Sensorineural hearing loss of left ear (Chronic) Allergic rhinitis (Chronic) Rosacea (Chronic) Medical History Depressive disorder Dysfunctional uterine bleeding Invasive ductal carcinoma of left breast (~2010) S/p lumpectomy, chemo, radiation Left upper lobe pulmonary nodule Stable since 2010 Rectal bleeding Surgical History History of bilateral ligation of fallopian tubes (1971) History of thumb surgery (~1999) Bilateral thumb arthroplasty Hx of cataract surgery S/P colonoscopy (2019) S/P ORIF (open reduction internal fixation) fracture (2009) Right wrist S/P right knee arthroscopy (1991) S/P YAG capsulotomy, bilateral Status post carpal tunnel release (~2009) Status post lateral meniscectomy of right knee (1961) Status post left foot surgery (2016) Exostectomy Status post left knee replacement (2005) Status post partial mastectomy of left breast (2010) Status post revision of total replacement of right knee (2012) Status post right breast lumpectomy (1988) Status post right knee replacement (1996) Status post total hip replacement, right (2014) Family History Mother Diabetes Lung cancer Hypertension Father Stroke Hypertension Lung cancer Sister Dementia Hypertension Brother Diabetes Hypertension Liver cancer Daughter No problems noted. Daughter No problems noted. Maternal Grandfather No problems noted. Maternal Grandmother No problems noted. Paternal Grandfather No problems noted. Paternal Grandmother No problems noted. Social History Smoking/Tobacco Use Status: Never Smoking risk assessment performed?: Yes Alcohol Intake: current Alcohol Intake frequency: a few times a week Alcohol type: wine Drug use: Never Substance use type: does not use Household members: spouse Housing: house Communication Needs: Deaf Pets and animals: No Current gender identity: female What is your relationship status?: How often do you talk on the phone with friends or family?: three or more times per week How often do you get together with friends or relatives?: once per week Do you belong to any clubs or organized social groups?: no Panel score (0-1 are the most socially isolated patients): 2 Margaret/Buddhist: No preference Do you feel safe at home: Yes Do you feel safe in your relationship?: Yes Female Reproductive History Menstrual Menopause type: natural Meds Allergies and Home Medications Allergies Allergy/AdvReac Type Severity Reaction Status Date / Time prochlorperazine edisylate AdvReac Intermediate agitation Verified 04/21/23 10:40 [From Compazine] prochlorperazine maleate AdvReac Intermediate agitation Verified 04/21/23 10:40 [From Compazine] metoclopramide HCl AdvReac disorientat Verified 04/21/23 10:40 [From Reglan] ion Home Medications Medication Instructions Recorded Confirmed Type acetaminophen 500 mg tablet 500 - 1,000 tab PO BID 10/18/12 04/21/23 History (Acetaminophen Extra Strength) multivitamin (Daily Multi-Vitamin 1 ea PO DAILY 04/14/17 04/21/23 History tablet) lutein 20 mg-zeaxanthin 1,000 mcg 1 cap PO DAILY 03/09/20 04/21/23 History capsule [id number] 333 mg-133 See Rx Instructions PO DAILY 10/15/21 04/21/23 History mg-5 mg tablet cholecalciferol (vitamin D3) 50 50 mcg PO DAILY 10/15/21 04/21/23 History mcg (2,000 unit) capsule calcium carbonate 200 mg calcium 200 mg PO PRN 02/10/22 04/21/23 History (500 mg) chewable tablet (Tums) turmeric root extract 500 mg tablet 500 mg PO DAILY 10/10/22 04/21/23 History vitamin B complex (Complex B-100 1 tab PO DAILY 02/06/23 04/21/23 History tablet,extended release) omeprazole 40 mg capsule,delayed 40 mg PO DAILY #90 tab-caps 03/17/23 04/21/23 Rx release amlodipine 5 mg tablet 5 mg PO DAILY #90 tab-caps 04/17/23 04/21/23 Rx levothyroxine 50 mcg tablet 50 mcg PO DAILY #90 tab-caps 04/17/23 04/21/23 Rx (Synthroid) celecoxib 200 mg capsule (Celebrex) 200 mg PO BID PRN pain 04/19/23 04/21/23 History nitrofurantoin 100 mg PO Q12H 7 days #14 caps 04/19/23 04/21/23 Rx monohydrate/macrocrystals 100 mg capsule (Macrobid) naloxone 4 mg/actuation nasal 1 spray intranasal Q2-3M PRN 04/21/23 04/21/23 Rx spray (Narcan) opioid overdose #2 ea oxycodone 10 mg tablet 10 mg PO Q6H PRN pain #60 tabs 04/21/23 04/21/23 Rx Exam Narrative Exam Narrative: General: Patient appears appropriate for age, she has no acute distress and alert and oriented x3. HEENT: Normocephalic, eyes with pupils equal react to light symmetrically, extraocular movement intact and sclera anicteric. Oropharynx with moist Koza and fair dentition. Neck: Supple without JVD. Back: Kyphotic with tenderness palpation over the lower thoracic spine being point tenderness over the vertebral bodies with minimal discomfort over the upper thoracic spine. Decreased range of motion. No CVA tenderness. Lungs: Fair aeration and clear to auscultation percussion. Breast: Exam deferred with patient having previous lumpectomy left breast but no mastectomy. Heart: Regular rate and rhythm with 3/6 to 4/6 systolic murmur lower left sternal border. No gallop or rub. Abdomen: Obese contour, soft and nontender to palpation with no palpable hepatosplenomegaly. Genitalia/rectal: Exam deferred. Extremities: Without clubbing, cyanosis or pitting edema but having diffuse nonpitting edema appearance to lower extremities. Good capillary refill. Skin: Pale, warm and dry. Neuro: Cranial nerves II through XII grossly intact, no focalizing motor deficits and no tremor. Psych: Normal affect and mood. Slightly anxious when discussing recurrent cancer. No abnormal thought processes. Remote and recent memory intact. Results Imaging Imaging Studies: Exam(s) CT THORAX ? ABD/PEL CTA EXAM: ? CT THORAX ? ABD/PEL CTA CLINICAL HISTORY: ? pleuritic back pain and SOB. TECHNIQUE:? Imaging Protocol:? Axial CT angiography was performed with multi- slice acquisition and multi-planar and/or 3D reconstructions. CONTRAST MATERIAL:? Intravenous: Omnipaque 350 Contrast volume:100 ml COMPARISON:? CT CT ABDOMEN ? PELVIS W from 03/09/[address] CHEST WO from 07/04/2022 CR XR LUMBAR SPINE COMPLETE from 01/09/2023 CR XR HIP LT COMPLETE ? AP PELVIS from 01/09/2023 MR MR LOWER JOINT LT WO from 02/24/2023 FINDINGS: CHEST: Pulmonary Arteries: No evidence of filling defects to suggest pulmonary emboli. Tracheobronchial tree: No bronchiectasis or mucus plugging.? Mediastinum and Antonia: No dominant adenopathy or fluid collection. Moderate size hiatal hernia. Pulmonary parenchyma: No consolidation.? Stable 9 millimeter nodule medial left upper lobe. Pleura: No effusion.? No pneumothorax.? Heart: Dilated left atrium.? Mitral annular calcification..? Minimal coronary artery calcifications are seen. Aorta: Thoracic aorta non-dilated. ? [id number] atherosclerotic changes. Bones: Diffusely mottled appearance of the bone with multiple lytic and sclerotic lesions thoracic spine, sternum and ribs.. There is a large lesion on the right side at T4 involving the lamina and pedicle with some encroachment into the central canal. Mild compression fracture T10. Moderate compression fracture of T11. Tubes, Catheters, and Lines: None. ? Lymph nodes: No enlarged mediastinal or hilar lymph nodes. Abnormally enlarged right axillary lymph nodes are noted measuring up to 2 cm in size. ABDOMEN and PELVIS: Liver: Normal size.? Normal density. No suspicious measurable mass. Portal, Superior Mesenteric, and Splenic Veins: Unremarkable.? Gallbladder and Biliary Tract: No radiodense calculus. No biliary dilatation.? Pancreas: Normal density, no abnormal calcifications or inflammatory process. Spleen: Normal. Adrenals: No masses seen. Kidneys: Normal size, contour and axis. No radiodense stones. No obstructive uropathy. No masses seen. Vasculature: Abdominal portion non-dilated. Bowel: Diverticulosis. No evidence of diverticulitis. No obstruction or bowel wall thickening. . Peritoneal Cavity: No ascites, collection or mesenteric inflammatory response. Lymph Nodes: Within normal limits. Soft Tissues: Unremarkable. Bladder: Symmetric distention, no gross wall thickening. Reproductive Organs: Stable left ovarian cyst. Lymph Nodes: Within normal limits. Bones: Diffusely mottled appearance of the bone with multiple lytic and sclerotic lesions. Some encroachment into the central canal at the L3-4 level of secondary to enlargement of the right facet joint region. There appears to be prior surgery at this level as well. Right hip prosthesis creates artifact in the pelvis. IMPRESSION: 1. No evidence of aortic dissection. Enlarged right axillary lymph nodes. 2. Widespread bony metastatic disease in the chest abdomen and pelvis. There is encroachment into the central canal at the right-sided T4 level. 3. ? Compression fractures of T10 and T11. Labs 04/22/23 05:35 04/22/23 05:35 Last Vital Signs Temp 37.1 C 04/21/23 16:42 Pulse 100 H 04/21/23 15:32 Resp 18 04/21/23 15:32 BP 128/62 04/21/23 16:42 Pulse Ox 93 04/21/23 16:42 Time Spent Time spent with Patient: >75 minutes Time was spent: preparing to see the patient(eg.review tests), obtaining and/or reviewing separately otained hiistory, ordering medications,tests, procedures, referring, communicating with other health healthcare liaison, indepentently interpreting results, counseling the patient and care coordination
[2023-04-21] MEDS: Heparin 5,000 UNITS/ML VIAL 5000 UNITS SC (20:23)
[2023-04-21 20:32] VITALS: BP 138/79; PULSE 91; RESP 16; TEMP 37.5; O2SAT 93
[2023-04-21 21:10] VITALS: BP 138/79; PULSE 91; RESP 16; TEMP 37.5; O2SAT 93
[2023-04-21 23:06] VITALS: BP 113/71; PULSE 83; RESP 16; TEMP 36; O2SAT 93
[2023-04-21] MEDS: oxyCODONE 10 MG TAB PO (23:27)
[2023-04-22] MEDS: Heparin 5,000 UNITS/ML VIAL 5000 UNITS SC (03:17)
[2023-04-22] MEDS: HYDROmorphone 2 MG/ML SYR 0.5 MG IVP ×2 (03:26→08:56)
[2023-04-22] MEDS: Normal Saline 1,000 ML 150 ML IV (03:30)
[2023-04-22 03:32] VITALS: BP 129/61; PULSE 81; RESP 16; TEMP 36.7; O2SAT 94
[2023-04-22] MEDS: Levothyroxine 50 MCG TAB PO (05:34)
[2023-04-22 07:00] VITALS: PULSE 77
[2023-04-22 07:08] LABS: HCT 33.6 % (36.0-46.0); HGB 11.3 g/dL (11.2-15.7); MCH 29.3 pg (27.0-33.0); MCHC 33.6 % (32.0-36.0); MCV 87 fL (80-95); MPV 9.4 fL (8.0-11.0); Platelet Count 285 10^3/uL (130-400); RBC 3.86 10^6/uL (3.93-5.22); RDW 18.3 % (11.7-14.6); RDW-SD 57.6 fL; WBC 9.22 10^3/uL (4.4-10.8)
[2023-04-22 07:19] VITALS: BP 115/72; PULSE 82; RESP 18; TEMP 37.1; O2SAT 91
[2023-04-22 07:21] LABS: ALT 15 U/L (14-59); AST 41 U/L (15-37); Albumin 2.7 g/dL (3.4-5.0); Alkaline Phosphatase 147 U/L (46-116); Anion Gap 10.7 mmol/L (3-11); BUN 26 mg/dL (7-18); Bilirubin, Total 0.3 mg/dL (0.2-1.0); CO2 24.3 mmol/L (21.0-32.0); CREATININE 0.7 mg/dL (0.55-1.02); Calcium 11.3 mg/dL (8.5-10.1); Chloride 105 mmol/L (98-107); Estimated GFR 87.92 (mL/min/1.73m2); Glucose 94 mg/dL (74-106); Magnesium 1.4 mg/dL (1.8-2.4); Potassium 3.5 mmol/L (3.5-5.1); Sodium 140 mmol/L (136-145); Total Protein 7.1 g/dL (6.4-8.2)
[2023-04-22 07:47] VITALS: O2SAT 93
[2023-04-22] MEDS: amLODIPine 5 MG TAB PO (07:50)
[2023-04-22] MEDS: Multivitamin TAB 1 TAB PO (07:51)
[2023-04-22] MEDS: Omeprazole 20 MG CAPCR 40 MG PO (07:52)
[2023-04-22] MEDS: Cholecalciferol (Vitamin D3) 1,000 UNIT TAB 2000 UNITS PO (07:52)
[2023-04-22] MEDS: Polyethylene Glycol 3350 17 GM PACKET PO (08:01)
[2023-04-22] MEDS: Magnesium Chloride 64 MG TABCR 128 MG PO (08:10)
[2023-04-22] MEDS: MAGNESIUM SULFATE 4 GM/100 ML BAG IVPB (08:11)
[2023-04-22] MEDS: Vitamins B Comp w/C TAB 1 TAB PO (08:45)
[2023-04-22] MEDS: Normal Saline Flush 10 ML SYR IVP (08:55)
--- NOTE | 2023-04-22 09:39 | INITIAL_ITS ---
Date of service: 04/22/23 Time of Service: 09:39 Care Management Initial Assmt Initial Assessment REASON FOR HOSPITALIZATION:: Compression fracture, Intractable back pain. PREVIOUS FUNCTIONAL STATUS/SOCIAL/FAMILY SUPPORTS:: Sofía lives in [facility] ith her Micheal. They have two daughters: one who resides in [place] and one in [place]. 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 Sofía is independent with her ADLs at baseline. Her , daughters and several neighbors provide support as needed. CURRENT FUNCTIONAL STATUS:: Sofía is lying in bed when CM comes to meet with her. Her Micheal is present in the room. Sofía inquires about Home Health services and says she is not at the point where she needs help with personal care yet but wondered about the process of getting services, should she need it in the future. ADVANCE DIRECTIVES:: None on file but patient's states she has one and her , Micheal Mcdonald, is appointed as Health Care Agent. Has patient been provided with info about the portal/API?: Yes Did the patient sign up for the portal?: Yes (Previously enrolled) CODE STATUS:: Full Code INSURANCE COVERAGE / FINANCIAL ISSUES:: Federal BCBS and Medicare CURRENT HOME/COMMUNITY SERVICES/EQUIPMENT:: Sofía owns a cane and a FWW. PRIMARY CARE PHYSICIAN:: GERMAN Gonzalez POTENTIAL DISCHARGE NEEDS:: Follow up appointments with PCP, oncology and discharge plan of care. PATIENT/FAMILY EDUCATION NEEDS:: Review of discharge instructions including medications, limitations and follow up plan of care, discuss Ask Me Three and self management. ANTICIPATED BARRIERS TO DISCHARGE:: None. TRANSPORTATION:: Via private vehicle with . PLAN:: Sofía will be discharged home with no services when medically cleared by provider. She will follow up with her PCP, [facility] oncologist, and plan of care as instructed. She will be transported home by her via private vehicle when ready. CM will continue to follow. PFSH All Active Problems (Updated 04/21/23 @ 22:02 by Gunner Wren) Breast cancer metastasized to bone (Acute) Compression fracture of body of thoracic vertebra (Acute) Intractable back pain (Acute) Metastatic neoplastic disease (Acute) Metastatic cancer to bone (Acute) Pathologic compression fracture of vertebra (Acute) Acute UTI (Acute) Multiple sclerosis (Chronic) Relapsing-remitting MS History of left breast cancer (Chronic ~2010) Left IDC s/p lumpectomy, chemo, radiation Obstructive sleep apnea (Chronic) Declines CPAP Hypothyroidism (Chronic) Essential hypertension (Chronic) Chronic cough (Chronic) Osteoarthritis (Chronic) Iliotibial band syndrome, left leg (Chronic) Pes anserinus bursitis of left knee (Chronic) Rotator cuff tear, right (Chronic) Recurrent left knee instability (Chronic) Primary fibromyalgia syndrome (Chronic) Fibromyalgia Left ovarian cyst (Chronic) Gastroesophageal reflux disease (Chronic) Hiatal hernia (Chronic) Weight loss, unintentional (Chronic) First degree hemorrhoids (Chronic) Arias's disease (Chronic) Sensorineural hearing loss of left ear (Chronic) Allergic rhinitis (Chronic) Rosacea (Chronic) Medical History Depressive disorder Dysfunctional uterine bleeding Invasive ductal carcinoma of left breast (~2010) S/p lumpectomy, chemo, radiation Left upper lobe pulmonary nodule Stable since 2010 Rectal bleeding Surgical History History of bilateral ligation of fallopian tubes (1971) History of thumb surgery (~1999) Bilateral thumb arthroplasty Hx of cataract surgery S/P colonoscopy (2019) S/P ORIF (open reduction internal fixation) fracture (2009) Right wrist S/P right knee arthroscopy (1991) S/P YAG capsulotomy, bilateral Status post carpal tunnel release (~2009) Status post lateral meniscectomy of right knee (1961) Status post left foot surgery (2016) Exostectomy Status post left knee replacement (2005) Status post partial mastectomy of left breast (2010) Status post revision of total replacement of right knee (2012) Status post right breast lumpectomy (1988) Status post right knee replacement (1996) Status post total hip replacement, right (2014) Family History Mother Diabetes Lung cancer Hypertension Father Stroke Hypertension Lung cancer Sister Dementia Hypertension Brother Diabetes Hypertension Liver cancer Daughter No problems noted. Daughter No problems noted. Maternal Grandfather No problems noted. Maternal Grandmother No problems noted. Paternal Grandfather No problems noted. Paternal Grandmother No problems noted. Social History (Reviewed 09/22/23 @ 19:17 by Gunner Restrepo Smoking/Tobacco Use Status: Never Smoking risk assessment performed?: Yes Alcohol Intake: current Alcohol Intake frequency: a few times a week Alcohol type: wine Drug use: Never Substance use type: does not use Household members: spouse Housing: house Communication Needs: Deaf Pets and animals: No Current gender identity: female What is your relationship status?: How often do you talk on the phone with friends or family?: three or more times per week How often do you get together with friends or relatives?: once per week Do you belong to any clubs or organized social groups?: no Panel score (0-1 are the most socially isolated patients): 2 Margaret/Sikhism: No preference Do you feel safe at home: Yes Do you feel safe in your relationship?: Yes Female Reproductive History Menstrual Menopause type: natural
[2023-04-22] MEDS: Milk of Magnesia 30 ML CUP PO (10:47)
--- NOTE | 2023-04-22 10:52 | IN_ITS ---
Date of service: 04/22/23 Time of Service: 10:05 PT Notes Visit Reasons: Compression Fracture, Intractable back pain Inpatient Physical Therapy Evaluation Date: April 22, 2023 Referring Doctor: Wendy Mahoney PT Orders: PT CONSULT Precautions: Standard Patient Profile/Admitting Diagnosis: Sofía is a 77 year old female admitted due to irritable back pain who has probable recurrent breast cancer with extensive bony metastases in her skeletal system involving the chest and thoracic spine.?? PMHX: (Updated 04/21/23 @ 22:02 by Gunner Wren) Breast cancer metastasized to bone (Acute) Compression fracture of body of thoracic vertebra (Acute) Intractable back pain (Acute) Metastatic neoplastic disease (Acute) Metastatic cancer to bone (Acute) Pathologic compression fracture of vertebra (Acute) Acute UTI (Acute) Multiple sclerosis (Chronic) Relapsing-remitting MSHistory of left breast cancer (Chronic ~2010) Left IDC s/p lumpectomy, chemo, radiationObstructive sleep apnea (Chronic) Declines CPAPHypothyroidism (Chronic) Essential hypertension (Chronic) Chronic cough (Chronic) Osteoarthritis (Chronic) Iliotibial band syndrome, left leg (Chronic) Pes anserinus bursitis of left knee (Chronic) Rotator cuff tear, right (Chronic) Recurrent left knee instability (Chronic) Primary fibromyalgia syndrome (Chronic) Fibromyalgia Left ovarian cyst (Chronic) Gastroesophageal reflux disease (Chronic) Hiatal hernia (Chronic) Weight loss, unintentional (Chronic) First degree hemorrhoids (Chronic) Arias's disease (Chronic) Sensorineural hearing loss of left ear (Chronic) Allergic rhinitis (Chronic) Rosacea (Chronic) Medical History? Depressive disorder Dysfunctional uterine bleeding Invasive ductal carcinoma of left breast (~2010) S/p lumpectomy, chemo, radiationLeft upper lobe pulmonary nodule Stable since 2010Rectal bleeding Surgical History? History of bilateral ligation of fallopian tubes (1971) History of thumb surgery (~1999) Bilateral thumb arthroplastyHx of cataract surgery S/P colonoscopy (2019) S/P ORIF (open reduction internal fixation) fracture (2009) Right wristS/P right knee arthroscopy (1991) S/P YAG capsulotomy, bilateral Status post carpal tunnel release (~2009) Status post lateral meniscectomy of right knee (1961) Status post left foot surgery (2016) ExostectomyStatus post left knee replacement (2005) Status post partial mastectomy of left breast (2010) Status post revision of total replacement of right knee (2012) Status post right breast lumpectomy (1988) Status post right knee replacement (1996) Status post total hip replacement, right (2014) 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 [place] in [place] where her daughters live Current Functional Limitations: back pain with weightbearing and transfers Equipment Owned/DME: cane, walker Subjective: Sofía notes her pain is better managed now that she is in the hospital. She could hardly walk prior to coming to the ED yesterday. Stunned with the news following diagnostics. Notes her daughters are coming up tomorrow. In question of returning home with her girls to obtain care in [place] where she has more family support. Objective: General Observation: IV R UE Mental Status: Alert and oriented x3 Pain: 4/10 mid to low back ROM: Right Upper Extremity: Demonstrates WFL R UE ROM Left Upper Extremity: Demonstrates WFL L UE ROM Right Lower Extremity: Demonstrates WFL R LE ROM Left Lower Extremity: Demonstrates WFL L LE ROM Strength: Right Upper Extremity: Demonstrates grossly 4/5 R UE strength Left Upper Extremity: Demonstrates grossly 4/5 L UE strength Right Lower Extremity: Hip flexion 4-/5, knee extension 4/5, knee flexion 4/5 Left Lower Extremity: Hip flexion 4-/5, knee extension 4/5, knee flexion 4/5 Bed Mobility/Transfers: Supine-sit: Independent Sit-supine: Independent Sit-stand: Supervision Stand-sit: Independent Gait: FWW, supervision, 300ft, mild SOB, good george, gerry flexed posture, WBOS Balance: Static Sitting: Normal Dynamic Sitting: Normal Static Standing: Good Dynamic Standing: Good Special Tests: Mobility Limitations Standardized Measure [facility] AM-PAC 6 clicks Basic Mobility Inpatient Short Form: Raw Score: 22 CMS Score: 21% Informed Consent/Education: Patient instructed in purpose of PT consult and plan of care. Assessment: Patient is a 77 year old female referred to physical therapy services with the diagnosis of compression fractures, irritable back pain due to probable metastatic breast cancer. Patient presents with clinical signs and symptoms consistent with diagnosis, as demonstrated by the following impairment level findings: impaired joint mobility thoracic/lumbar spine, impaired muscle performance large LE muscle groups, impaired activity tolerance with increased pain functional transfers and mobility. Impairments are contributing to the following functional limitations: mid/low back pain, decreased activity tolerance, decreased mobility Patient is assessed as a Moderate 58541 complexity based on the following: History: As above Examination: As above Presentation: Evolving Decision Making: Moderate Goals: Goals X1 week 1. Supine-Sit independent 2. Sit-Supine independent 3. Sit-Stand independent 4. Stand-Sit independent 5. Bed-Chair independent 6. Chair-Bed independent 7. Gait FWW 500 ft or greater, independent Plan of Care/Treatment Plan: 1-2x/day, 7 days/week x 1 week. Plan of care has been reviewed with the NETWORK DESKTOP SUPPORT SPECIALIST providing the service under Physical Therapy direction. Initiate Physical Therapy intervention for strengthening, bed mobility, transfers, gait, stairs, balance training, use of assistive device. DISCHARGE RECOMMENDATIONS: Home with no services TREATMENT CODE/TIME: 06105, IE, 20 minutes 10:05 am SATINDER Wheeler [facility] Disclaimer: This note was created using [employer] voice recognition software. It was reviewed for major content. However, there may be multiple small discrepancies and errors due to the voice recognition aspects of the software.
[2023-04-22 11:07] VITALS: BP 109/65; PULSE 83; RESP 18; TEMP 36.9; O2SAT 93
[2023-04-22] MEDS: Docusate Sodium 100 MG CAP PO (12:34)
--- NOTE | 2023-04-22 13:55 | W.PM.DS.N ---
Date of service: 04/22/23 Time of Service: 13:55 DS: Diagnosis Discharge Diagnosis (1) Intractable back pain: Status: Acute (2) Compression fracture of body of thoracic vertebra: Status: Acute (3) Breast cancer metastasized to bone: Status: Acute (4) History of left breast cancer: Status: Chronic Discharge Plan Disposition Patient Disposition: Home Condition: Stable Discharge Details Reason For Visit: Compression Fracture, Intractable back pain Admit Date/Time: 04/21/23 18:31 Admit Provider: Gunner Wren Attending Provider: Gunner Wren [facility] Course: This is a 77-year-old lady who has probable recurrent breast cancer with extensive bony metastases in her skeletal system involving the chest and thoracic spine who presented to the emergency department with intractable pain not responding to oxycodone oral. She was seen earlier this week in the emergency department and diagnosed with a compression fractures and prescribed oxycodone which has not been effective. In the emergency department she did receive a fentanyl patch in addition to IV Dilaudid to control her symptoms. She was referred to observation under hospitalist services for further monitoring and medication adjustment. Pain management has improved with fentanyl patch 12 mcg/h applied and the following day she feels she is ready for discharge to home. She did request that the oxycodone be discontinued and that she would like to continue with Dilaudid as that was an effective combination. She has not filled her oxycodone 10 mg tabs that were increased by her primary care provider and was instructed not to do so. Prior authorization for the fentanyl patch was obtained as it was required for continued use. Primary care provider to monitor for and meet opioid prescribing requirements. Patient has remained medically stable with symptoms of pain controlled and is ready for discharge to home. She will follow-up with her up primary care provider outpatient or return sooner for new or worsening symptoms Discharge discussed with Dr. Weems Home Meds and New Rx's Prescriptions: New fentanyl 12 mcg/hr Patch 72 Hour 12 mcg transdermal Q72H Qty: 5 0RF hydromorphone [Dilaudid] 2 mg tablet 2 mg PO Q4H PRNQty: 20 0RF Continued cholecalciferol (vitamin D3) 50 mcg (2,000 unit) capsule 50 mcg PO DAILY [id number] 333-133-5 mg tablet See Rx Instructions PO DAILY Rx Instructions: PO daily; calcium carbonate [Tums] 200 mg calcium (500 mg) tablet,chewable 200 mg PO PRN Complex B-100 Tablet Extended Release 1 tab PO DAILY omeprazole 40 mg capsule,delayed release(DR/EC) 40 mg PO DAILY Qty: 90 3RF naloxone [Narcan] 4 mg/actuation spray,non-aerosol 1 spray intranasal Q2-3M PRN (Reason: opioid overdose) Qty: 2 4RF Rx Instructions: spray 1 dose into ONE nostril; alternate nostrils w each dose until help arrives amlodipine 5 mg tablet 5 mg PO DAILY Qty: 90 3RF levothyroxine [Synthroid] 50 mcg tablet 50 mcg PO DAILY Qty: 90 3RF Hold Instructions: Evaluating necessity given negative thyroid antibodies turmeric root extract 500 mg tablet 500 mg PO DAILY acetaminophen [Acetaminophen Extra Strength] 500 MG tablet 500 - 1,000 tab PO BID multivitamin [Daily Multi-Vitamin] 1 EACH tablet 1 ea PO DAILY lutein-zeaxanthin 20 mg- 1,000 mcg Capsule 1 cap PO DAILY celecoxib [Celebrex] 200 mg capsule 200 mg PO BID PRN (Reason: pain) Rx Instructions: Take one tablet per day and a second as needed. Discontinued oxycodone 10 mg tablet 10 mg PO Q6H MDD 40mg PRN (Reason: pain) Qty: 60 0RF No Action nitrofurantoin monohyd/m-cryst [Macrobid] 100 mg capsule 100 mg PO Q12H 7 Days Qty: 14 0RF Rx Instructions: must administer with a meal/food. May stop after 3 days if there are no further symptoms. Discharge Instructions Instructions: Vertebral Compression Fracture (DC), Bone Metastasis (DC) Stand Alone Forms: Nursing Discharge Form Referrals: Guerda Haywood NP [Primary Care Provider] - (Please call your Primary Care Provider to make a follow up appointment 1-2 weeks. ) Jeanine Lord [ NON-[facility] STAFF PHYSICIAN] - Activity:: Activity as Tolerated Equipment/Supplies:: No Equipment Needed Diet:: As Tolerated Discharge Orders Discharge Orders: Discharge Order (Routine); Ordered 04/22/23 Ordered By: Wendy Mahoney Discharge Data Discharge Date/Time-TO BE ENTERED AT DEPARTURE: 04/22/23 16:41 DS: Summary Time Spent with Patient providing and/or coordinating discharge services: Less than 30 minutes Status at Discharge Functional status at discharge: independent ambulation Overall status at discharge: patient is progressing back to baseline Mental Status: mental status grossly normal Speech and Movement: speech and movement normal Mood: congruent mood Affect: normal affect Exam Const General: cooperative, frail appearing and other Nutritional Appearance: average body habitus Orientation: alert, awake and oriented x3 HENMT Head: normal to inspection, normocephalic and atraumatic Face and sinus: normal facial exam Mouth: oral mucosae normal Eyes General: appearance normal, both eyes and all related structures Eyelids: eyelids normal Pupils: PERRL Neck Neck: normal visual inspection, full ROM, no lymphadenopathy, no meningeal signs, trachea midline and supple Lymphatic: no lymphadenopathy noted Resp Auscultation: clear to auscultation bilaterally Cardio Palpation: normal PMI Rate: regular rate GI Inspection: normal to inspection and non-distended Palpation: soft General: No CVA tenderness Back/Spine/Pelvis Thoracic/Lumbar Spine: kyphosis Skin General skin exam: no rashes or lesions noted Neuro General: patient alert, patient awake and patient oriented x3 Cognition: normal cognition Extrem General: normal to inspection, full ROM, capillary refill normal and no pedal edema Psych Appearance: grossly normal Mental Status: mental status grossly normal Speech and Movement: speech and movement normal Mood: congruent mood Affect: normal affect Attitude: cooperative Thought Process: normal DS: Data Vitals/I&O Vitals and I&O: Vital Signs Temperature 36.9 C 04/22/23 11:07 Temperature Source Tympanic 04/22/23 11:07 Pulse 83 04/22/23 11:07 Pulse Rhythm Regular 04/22/23 07:50 Respiratory Rate 18 04/22/23 11:07 Respiratory Effort Normal, Non-Labored 04/22/23 07:50 Respiratory Depth Normal 04/22/23 07:50 Respiratory Pattern Normal 04/22/23 07:50 Blood Pressure 109/65 04/22/23 11:07 Blood Pressure Position Sitting 04/21/23 15:32 Pulse Oximetry 93 04/22/23 11:07 Oxygen Delivery Method Room Air 04/22/23 11:07 Oxygen Flow Rate 0 04/22/23 11:07 Pain Level 0 04/22/23 11:07 Intake & Output 04/21/23 04/22/23 04/22/23 23:59 11:59 23:59 Intake Total 500 / 500 1880.417 / 1880.417 Output Total 250 / 250 700 / 700 Balance 250 / 250 1180.417 / 1180.417 Weight 60.425 kg 59.786 kg Intake: IV 500 / 500 1760.417 / 1760.417 Oral 120 / 120 Output: Urine 250 / 250 700 / 700 Other: Urine Color Yellow Yellow Urine Appearance Clear Clear Urine Odor None None Voiding Methods Bedside Commode Toilet Data Completed and Pending Labs on day of discharge: Labs from last 24 hours 04/22/23 04/22/23 05:58 05:58 WBC 9.22 RBC 3.86 L Hgb 11.3 D Hct 33.6 L MCV 87 MCH 29.3 MCHC 33.6 RDW 18.3 H Plt Count 285 MPV 9.4 Sodium 140 Potassium 3.5 Chloride 105 Carbon Dioxide 24.3 Anion Gap 10.7 BUN 26 H Creatinine 0.7 Est GFR (CKD-EPI 2020) 87.92 Glucose 94 Calcium 11.3 H Magnesium 1.4 L Total Bilirubin 0.3 AST 41 H ALT 15 Alkaline Phosphatase 147 H Total Protein 7.1 Albumin 2.7 L PFSH All Active Problems (Updated 04/21/23 @ 22:02 by Gunner Wren) Breast cancer metastasized to bone (Acute) Compression fracture of body of thoracic vertebra (Acute) Intractable back pain (Acute) Metastatic neoplastic disease (Acute) Metastatic cancer to bone (Acute) Pathologic compression fracture of vertebra (Acute) Acute UTI (Acute) Multiple sclerosis (Chronic) Relapsing-remitting MS History of left breast cancer (Chronic ~2010) Left IDC s/p lumpectomy, chemo, radiation Obstructive sleep apnea (Chronic) Declines CPAP Hypothyroidism (Chronic) Essential hypertension (Chronic) Chronic cough (Chronic) Osteoarthritis (Chronic) Iliotibial band syndrome, left leg (Chronic) Pes anserinus bursitis of left knee (Chronic) Rotator cuff tear, right (Chronic) Recurrent left knee instability (Chronic) Primary fibromyalgia syndrome (Chronic) Fibromyalgia Left ovarian cyst (Chronic) Gastroesophageal reflux disease (Chronic) Hiatal hernia (Chronic) Weight loss, unintentional (Chronic) First degree hemorrhoids (Chronic) Bethesda's disease (Chronic) Sensorineural hearing loss of left ear (Chronic) Allergic rhinitis (Chronic) Rosacea (Chronic) Medical History Depressive disorder Dysfunctional uterine bleeding Invasive ductal carcinoma of left breast (~2010) S/p lumpectomy, chemo, radiation Left upper lobe pulmonary nodule Stable since 2010 Rectal bleeding Surgical History History of bilateral ligation of fallopian tubes (1971) History of thumb surgery (~1999) Bilateral thumb arthroplasty Hx of cataract surgery S/P colonoscopy (2019) S/P ORIF (open reduction internal fixation) fracture (2009) Right wrist S/P right knee arthroscopy (1991) S/P YAG capsulotomy, bilateral Status post carpal tunnel release (~2009) Status post lateral meniscectomy of right knee (1961) Status post left foot surgery (2016) Exostectomy Status post left knee replacement (2005) Status post partial mastectomy of left breast (2010) Status post revision of total replacement of right knee (2012) Status post right breast lumpectomy (1988) Status post right knee replacement (1996) Status post total hip replacement, right (2014) Family History Mother Diabetes Lung cancer Hypertension Father Stroke Hypertension Lung cancer Sister Dementia Hypertension Brother Diabetes Hypertension Liver cancer Daughter No problems noted. Daughter No problems noted. Maternal Grandfather No problems noted. Maternal Grandmother No problems noted. Paternal Grandfather No problems noted. Paternal Grandmother No problems noted. Social History Smoking/Tobacco Use Status: Never Smoking risk assessment performed?: Yes Alcohol Intake: current Alcohol Intake frequency: a few times a week Alcohol type: wine Drug use: Never Substance use type: does not use Household members: spouse Housing: house Communication Needs: Deaf Pets and animals: No Current gender identity: female What is your relationship status?: How often do you talk on the phone with friends or family?: three or more times per week How often do you get together with friends or relatives?: once per week Do you belong to any clubs or organized social groups?: no Panel score (0-1 are the most socially isolated patients): 2 Margaret/Restorationist: No preference Do you feel safe at home: Yes Do you feel safe in your relationship?: Yes Female Reproductive History Menstrual Menopause type: natural Time Spent with Patient Time Spent with Patient: <45 minutes Time was spent: preparing to see the patient(eg.review tests), obtaining and/or reviewing separately otained hiistory, ordering medications,tests, procedures, indepentently interpreting results and counseling the patient
--- NOTE | 2023-04-22 14:24 | CMDISCH_ITS ---
Date of service: 04/22/23 Time of Service: 14:24 LACE Index Scoring Tool Questions: Length of Stay (in days): 1 Was the patient admitted via the E.D.?: Yes Comorbidities: Any Tumor E.D. Visits: 0 Answers: Total Score: 6 Risk of Readmission: Low Risk Care Management Discharge Plan Reason for Hospitalization: Compression fracture, Intractable back pain. Discharge Plan: Sofía is discharged home with no services. She will follow up with her PCP, [facility] [place]ologist, and plan of care as instructed. She is transported home by her via private vehicle. Patient/Family Education Needs: Review of discharge instructions including medications, limitations and follow up plan of care; discuss Ask Me Three and self management.
[2023-04-22] MEDS: Acetaminophen 325 MG TAB 650 MG PO (15:24)
== END 2023-04-22 16:41 | disposition home or self-care (01) ==
LOC: ER 18:31 → MS 20:03
PROVIDERS: Admitting Provider Family Medicine; Emergency Provider Nurse Practitioner Acute Care; PCP Nurse Practitioner Family; Visit Provider Family Medicine
DX: M84.58XA Pathological fracture in neoplastic disease, other specified site, initial encounter for fracture (principal); S22.070A Wedge compression fracture of T9-T10 vertebra, initial encounter for closed fracture; S22.080A Wedge compression fracture of T11-T12 vertebra, initial encounter for closed fracture; X58.XXXA Exposure to other specified factors, initial encounter; G89.3 Neoplasm related pain (acute) (chronic); M54.89 Other dorsalgia; C79.51 Secondary malignant neoplasm of bone; Z79.51 Long term (current) use of inhaled steroids; Z85.3 Personal history of malignant neoplasm of breast; G35 Multiple sclerosis; G47.33 Obstructive sleep apnea (adult) (pediatric); I10 Essential (primary) hypertension; E03.9 Hypothyroidism, unspecified; R05.3 Chronic cough; N83.202 Unspecified ovarian cyst, left side; K21.9 Gastro-esophageal reflux disease without esophagitis; K44.9 Diaphragmatic hernia without obstruction or gangrene; R63.4 Abnormal weight loss; Z68.25 Body mass index [BMI] 25.0-25.9, adult; K64.0 First degree hemorrhoids; L11.1 Transient acantholytic dermatosis [Grover]; F32.A Depression, unspecified; R91.1 Solitary pulmonary nodule; Z96.641 Presence of right artificial hip joint; Z96.651 Presence of right artificial knee joint; Z79.899 Other long term (current) drug therapy
CPT/HCPCS: 36415; 80053; 85027; 96361; 96365; 96366; 96374; 96375; 96376; 97162; 99285; 83735; 99223; 99238; G0378; J0131; J1170; J1644; J1885; J3475

== ENCOUNTER → 2023-04-26 00:50 | Outpatient (CLI) | payer MEDICARE, BC, SELFPAY ==
--- NOTE | 2023-04-26 08:45 | DI.MAMMO_ITS ---
Exam(s) MAMMO DIAGNOSTIC UNI EXAM: MAMMO DIAGNOSTIC UNI CLINICAL HISTORY: new metastatic bone ca, lt breast pain,personal h/o lt breast ca. TECHNIQUE: Craniocaudal and mediolateral oblique Full Field Digital Mammography views of the left br east with Computer Aided Diagnosis followed by Tomosynthesis. COMPARISON: Comparison is made with prior examinations. FINDINGS: Mammography/Tomosynthesis: Masses/Architectural Distortion: The patient is status post left lumpectomy. No suspicious nodules o r new areas of architectural distortion are present. Microcalcifictions: No suspicious pleomorphic-type are seen. Skin Thickening/Nipple Retraction: None. IMPRESSION: 1. No evidence of malignancy is noted. 2. Unless there is more urgent need, follow-up screening mammography is recommended, as per [place] [employer] guidelines. 3. The findings were discussed with the patient on the date of the examination. BI-RADS Category 2 - Benign Findings Breast Density - Category B - Scattered areas of fibroglandular density Breast density Category C or D implies that the patient has dense breast tissue. Dense breast tissue can make it harder to find cancer on a mammogram. Dense breast tissue is also associated with an incr eased risk of breast cancer. This information about the result of the mammogram report was provided to the patient to raise their awareness. Use this report when you speak with the patient about their risks for breast cancer, which includes their family history. At that time, you may recommend additional screening tests (Ultrasoun d or MRI) as these tests may add significant information. A negative radiographic report should not delay biopsy if a dominant or clinically suspicious mass is present. Up to ten percent of cancers are not identified on mammography. A negative report may reinforce clinical impression. Adenosis and dense breasts may obscure an underlying neoplasm. False positive reports average 6 to 10%. Patient will receive a letter notifying them of these results.
== END ==
PROVIDERS: PCP Nurse Practitioner Family; Visit Provider Nurse Practitioner Family
DX: C79.51 Secondary malignant neoplasm of bone (principal); N64.4 Mastodynia; Z85.3 Personal history of malignant neoplasm of breast; Z12.31 Encounter for screening mammogram for malignant neoplasm of breast
CPT/HCPCS: 77061; 77065; G0279

== ENCOUNTER 2023-05-08 12:36 | Emergency (ER) | payer MEDICARE, BC, SELFPAY ==
[2023-05-08] VITALS (32 sets, daily range): BP systolic 126–136; BP diastolic 53–87; PULSE 77–107; RESP 12–25; TEMP 36.8; O2SAT 91–94
--- NOTE | 2023-05-08 12:30 | RT.EKG_ITS ---
APPROVED REPORT Exam: Resting ECG Reason for Exam: sob Patient Location: E HR:81 bpm ECG Measurements Heart Rate 81 AXIS PA 160 P 22 QRSd 133 QRS -13 QT 423 T 111 QTc 490 Conclusion Sinus rhythm...normal P axis, V-rate 60- 99 Left bundle branch block...QRSd>120, broad/notched R ST elevation secondary to IVCD...Multiple VCG criteria Physician: negative for sgarbossa, unchanged from prior
[2023-05-08 13:12] LABS: BE (Venous) 1 mmol/L (-2-3); HCO3 (Venous) 25 mmol/L (23-28); O2 Sat (Venous) 86 %; TCO2 (Venous) 22 mmol/L (24-29); pCO2 (Venous) 33 mmHg (41-51); pH (Venous) 7.48 (7.31-7.41); pO2 (Venous) 51 mmHg
--- NOTE | 2023-05-08 13:32 | W.ED.GENAD ---
Discharge Plan Disposition Patient Disposition: Home Discharge Details Clinical Impression: Pathological fracture of rib of right side, Multiple lesions of metastatic malignancy, Bilateral pleural effusion Primary Care Provider: Guerda Haywood ED Provider: Gabriel Sands Home Meds and New Rx's Prescriptions: No Action cholecalciferol (vitamin D3) 50 mcg (2,000 unit) capsule 50 mcg PO DAILY [id number] 333-133-5 mg tablet See Rx Instructions PO DAILY Rx Instructions: PO daily; calcium carbonate [Tums] 200 mg calcium (500 mg) tablet,chewable 200 mg PO PRN Complex B-100 Tablet Extended Release 1 tab PO DAILY omeprazole 40 mg capsule,delayed release(DR/EC) 40 mg PO DAILY Qty: 90 3RF naloxone [Narcan] 4 mg/actuation spray,non-aerosol 1 spray intranasal Q2-3M PRN (Reason: opioid overdose) Qty: 2 4RF Rx Instructions: spray 1 dose into ONE nostril; alternate nostrils w each dose until help arrives fluticasone propionate 50 mcg/actuation spray,suspension 1 spray intranasal DAILY PRN Rx Instructions: administer into each nostril diphenhydramine-acetaminophen [Tylenol PM Extra Strength] 25-500 mg tablet 2 tab PO QHS PRN docusate sodium [Colace] 100 mg capsule 100 - 200 mg PO DAILY PRN fentanyl 12 mcg/hr patch 72 hour 12 mcg transdermal Q72H MDD 25+12mcg Qty: 10 0RF fentanyl 25 mcg/hr patch 72 hour 1 patch transdermal Q72H MDD 25mcg always and 12mcg with it Qty: 10 0RF Rx Instructions: start with a 25mcg patch, but apply the 12mcg patch also (total 37mcg) if needed hydromorphone 4 mg tablet 4 mg PO TID MDD 6 tabs PRN (Reason: pain) Qty: 30 0RF Rx Instructions: widespread metastatic breast cancer lorazepam 0.5 mg tablet 0.5 mg PO TID PRN (Reason: anxiety) Qty: 60 0RF morphine concentrate 100 mg/5 mL (20 mg/mL) solution See Rx Instructions sublingual Q1H PRN MDD 37 mcg plus 30mg of liquid mor PRN (Reason: pain,anxiety,muscle spasm) Qty: 30 0RF Rx Instructions: 0.25-1 ML SL Q1H PRN PRN; ondansetron HCl 4 mg tablet 4 mg PO Q8H PRN (Reason: nausea and vomiting) Qty: 30 0RF ibuprofen 600 mg tablet 600 mg PO TID PRN (Reason: pain) Qty: 90 0RF amlodipine 5 mg tablet 5 mg PO DAILY Qty: 90 3RF levothyroxine [Synthroid] 50 mcg tablet 50 mcg PO DAILY Qty: 90 3RF Hold Instructions: Evaluating necessity given negative thyroid antibodies turmeric root extract 500 mg tablet 500 mg PO DAILY acetaminophen [Acetaminophen Extra Strength] 500 MG tablet 500 - 1,000 tab PO BID multivitamin [Daily Multi-Vitamin] 1 EACH tablet 1 ea PO DAILY lutein-zeaxanthin 20 mg- 1,000 mcg Capsule 1 cap PO DAILY Discharge Instructions Instructions: Rib Fracture (ED) Additional Instructions: At this time as we discussed together you do have fractures in your ribs, some of which appear secondary to metastatic lesions. Please follow-up closely with your palliative care team on Monday at your scheduled appointment. You have elected for rib block. If you still need additional pain control in addition to the fentanyl and the rib blocks, you can also take your prescribed Dilaudid as needed. Please make sure that you are taking your stool softeners and MiraLAX and plenty of fluids regularly to prevent constipation. If you notice any worsening of your symptoms, or any new symptoms such as vomiting, diarrhea, fever, chills, shortness of breath, chest pain, numbness, weakness, or fainting , please return immediately to the emergency department for reevaluation. Please follow up with your primary care provider as soon as possible for reassessment and reevaluation. As always, it was a pleasure participating in your medical care today. Referrals: Guerda Haywood NP [Primary Care Provider] - Amy Li MD, IRON [[facility]] - Discharge Data Discharge Date/Time-TO BE ENTERED AT DEPARTURE: 05/08/23 18:37 Medical Decision Making Exam demonstrates reproducible chest wall tenderness on the right scapula, and right lateral ribs. Diffuse scattered rhonchi and rales. Concern for potential pneumonia, bony metastasis into the scapular ribs causing the pain, but differential also includes pulmonary embolism as her oxygen is at around 90% on room air. She does not have a history of COPD, and she does not normally use oxygen. We will treat the patient's pain with NSAIDs, evaluate for PE, check for unlikely cardiac etiology, monitor closely and reassess. EKG shows evidence of left bundle branch block but does not show any evidence of Sgarbossa's criteria. 3:54 PM Patient's labs demonstrate a white count of 14, no bandemia though. Urinalysis negative for infection. Electrolytes stable. Potassium minimally low at 3.2. proBNP 2000. Troponin normal, urinalysis negative for nitrites, negative for leuk esterase. CTA of the chest shows no evidence of pneumonia per radiology. There are some effusions bilaterally. Notable widespread bony metastases with compression fractures appear stable, she has bilateral rib fractures, so his notable rib fracture and displacement on the patient's right posterior chest and the exact location of her pain. Specifically on rib 8 on the right. I spoke with palliative and discussed the case with them. They do recommend continuation of the Dilaudid with the appropriate stool softeners which on further discussion it sounds like the patient was not taking. They also recommend increasing the fentanyl patch to 25 mics. We will add an additional 12.5 mcg patch here. She has close follow-up with palliative care in 48 hours on Monday. We also discussed with the patient admission versus discharge home. Patient states that it is her request and priority to go home. I discussed the risks and benefits and options of a rib block. Specifically we discussed that there is a high risk for complication because of the effusions and the cancer. She understands this and states that she is not able to function with the current pain, and she would rather have those risks then be potentially bedridden. Understanding this the patient would like to progress with a rib block. I did read to anesthesia and they will come and discuss it further with the patient. Otherwise patient appears stable for discharge and appropriate for home understanding her wishes and request. I have extensively reviewed the treatment plan and discharge instructions with the patient and their family. I have addressed all patient concerns at this time. The patient and family was made aware of what symptoms to monitor for that would warrant a return to the emergency department. Discussed the plan with the patient and family, they demonstrate verbal understanding and agreement with our assessment and plan at this time. The documentation in this chart was dictated using [employer] dictation software. Please excuse any dictation errors. Patient was discharged after she received her block. FINDINGS: Pulmonary Arteries: No evidence of filling defect to suggest pulmonary emboli. Tracheobronchial tree: Patent where visualized. Mediastinum and Antonia: Large hiatal hernia. No dominant adenopathy or fluid collection. Pulmonary parenchyma: Bibasilar atelectasis. No consolidation or dominant measurable mass. Pleura: Small to moderate bilateral pleural effusions, left greater than right. No pneumothorax. Heart: The heart is dilated. Mitral annular calcifications. Mild coronary artery calcifications are seen. Aorta: Thoracic aorta non-dilated. No aneurysm. No dissection. Upper abdomen: Unremarkable. Bones: Widespread bony metastases seen in the spine and ribs. Bilateral rib fractures. Moderate T11 compression fracture. Mild midthoracic compression fractures, unchanged. Soft tissues: Enlarged right axillary lymph nodes, stable. IMPRESSION: No evidence of pulmonary embolism. Small to moderate-sized bilateral pleural effusions. Widespread bony metastases with compression fractures appear stable. Bilateral rib fractures. Findings called to Dr. Sands of the emergency department. HPI General Date/Time Provider Initiated Documentation: 05/08/23 12:42. HPI Narrative: 77-year-old female with a past medical history of previous left-sided breast cancer when she received chemotherapy in 2010, had a lumpectomy, and then recently in the last month or so had evidence of metastatic lesions throughout the chest and thoracic spine which is thought to be from recurrence of metastatic breast cancer. She presents today for evaluation of chest pain and shortness of breath. Patient states that the pain is severe and aching in nature. It started 3 days ago on Monday. It is behind her right scapula, and radiates around the ribs on the lateral aspect. She denies any internal chest pain. She states that it is worse when breathing or taking a deep breath. She also feels short of breath. She denies history of blood clots. She did take her home Dilaudid and fentanyl patch and this did not help. She took Motrin and this did improve the symptoms somewhat. She denies any falls or trauma. She denies any hemoptysis. She does admit to a chronic cough. Related Data Home Medications Medication Instructions Recorded Confirmed acetaminophen 500 mg tablet 500 - 1,000 tab PO BID 10/18/12 05/10/23 (Acetaminophen Extra Strength) multivitamin (Daily Multi-Vitamin 1 ea PO DAILY 04/14/17 05/10/23 tablet) lutein 20 mg-zeaxanthin 1,000 mcg 1 cap PO DAILY 03/09/20 05/10/23 capsule [id number] 333 mg-133 See Rx Instructions PO DAILY 10/15/21 05/10/23 mg-5 mg tablet cholecalciferol (vitamin D3) 50 50 mcg PO DAILY 10/15/21 05/10/23 mcg (2,000 unit) capsule calcium carbonate 200 mg calcium 200 mg PO PRN 02/10/22 05/10/23 (500 mg) chewable tablet (Tums) turmeric root extract 500 mg tablet 500 mg PO DAILY 10/10/22 05/10/23 vitamin B complex (Complex B-100 1 tab PO DAILY 02/06/23 05/10/23 tablet,extended release) omeprazole 40 mg capsule,delayed 40 mg PO DAILY #90 tab-caps 03/17/23 05/10/23 release amlodipine 5 mg tablet 5 mg PO DAILY #90 tab-caps 04/17/23 05/10/23 levothyroxine 50 mcg tablet 50 mcg PO DAILY #90 tab-caps 04/17/23 05/10/23 (Synthroid) naloxone 4 mg/actuation nasal 1 spray intranasal Q2-3M PRN 04/21/23 05/10/23 spray (Narcan) opioid overdose #2 ea diphenhydramine 25 2 tab PO QHS PRN 05/10/23 05/10/23 mg-acetaminophen 500 mg tablet (Tylenol PM Extra Strength) docusate sodium 100 mg capsule 100 - 200 mg PO DAILY PRN 05/10/23 05/10/23 (Colace) fentanyl 12 mcg/hr transdermal 12 mcg transdermal Q72H #10 ea 05/10/23 05/10/23 patch fentanyl 25 mcg/hr transdermal 1 patch transdermal Q72H #10 ea 05/10/23 05/10/23 patch fluticasone propionate 50 1 spray intranasal DAILY PRN 05/10/23 05/10/23 mcg/actuation nasal spray,suspension hydromorphone 4 mg tablet 4 mg PO TID PRN pain #30 tabs 05/10/23 05/10/23 ibuprofen 600 mg tablet 600 mg PO TID PRN pain #90 tabs 05/10/23 05/10/23 lorazepam 0.5 mg tablet 0.5 mg PO TID PRN anxiety #60 tabs 05/10/23 05/10/23 morphine concentrate 100 mg/5 mL See Rx Instructions sublingual Q1H 05/10/23 05/10/23 (20 mg/mL) oral solution PRN PRN pain,anxiety,muscle spasm #30 mL ondansetron HCl 4 mg tablet 4 mg PO Q8H PRN nausea and 05/10/23 05/10/23 vomiting #30 tabs Previous Rx's Medication Instructions Recorded omeprazole 40 mg capsule,delayed 40 mg PO DAILY #90 tab-caps 03/17/23 release amlodipine 5 mg tablet 5 mg PO DAILY #90 tab-caps 04/17/23 levothyroxine 50 mcg tablet 50 mcg PO DAILY #90 tab-caps 04/17/23 (Synthroid) naloxone 4 mg/actuation nasal 1 spray intranasal Q2-3M PRN 04/21/23 spray (Narcan) opioid overdose #2 ea fentanyl 12 mcg/hr transdermal 12 mcg transdermal Q72H #10 ea 05/10/23 patch fentanyl 25 mcg/hr transdermal 1 patch transdermal Q72H #10 ea 05/10/23 patch hydromorphone 4 mg tablet 4 mg PO TID PRN pain #30 tabs 05/10/23 ibuprofen 600 mg tablet 600 mg PO TID PRN pain #90 tabs 05/10/23 lorazepam 0.5 mg tablet 0.5 mg PO TID PRN anxiety #60 tabs 05/10/23 morphine concentrate 100 mg/5 mL See Rx Instructions sublingual Q1H 05/10/23 (20 mg/mL) oral solution PRN PRN pain,anxiety,muscle spasm #30 mL ondansetron HCl 4 mg tablet 4 mg PO Q8H PRN nausea and 05/10/23 vomiting #30 tabs Allergies Allergy/AdvReac Type Severity Reaction Status Date / Time prochlorperazine edisylate AdvReac Intermediate agitation Verified 05/10/23 13:21 [From Compazine] prochlorperazine maleate AdvReac Intermediate agitation Verified 05/10/23 13:21 [From Compazine] metoclopramide HCl AdvReac disorientat Verified 05/10/23 13:21 [From Reglan] ion General Stated Complaint: SOB TRAVIS: 3 Review of Systems All systems reviewed & are unremarkable except as noted in HPI and below PFSH All Active Problems Bilateral pleural effusion (Acute) Multiple lesions of metastatic malignancy (Acute) Pathological fracture of rib of right side (Acute) Metastatic cancer to bone (Acute) Mammary primary Breast cancer metastasized to bone (Acute) Compression fracture of body of thoracic vertebra (Acute) Intractable back pain (Acute) Pathologic compression fracture of vertebra (Acute) Multiple sclerosis (Chronic) Relapsing-remitting MS History of left breast cancer (Chronic ~2010) Left IDC s/p lumpectomy, chemo, radiation Obstructive sleep apnea (Chronic) Declines CPAP Hypothyroidism (Chronic) Essential hypertension (Chronic) Chronic cough (Chronic) Osteoarthritis (Chronic) Iliotibial band syndrome, left leg (Chronic) Pes anserinus bursitis of left knee (Chronic) Rotator cuff tear, right (Chronic) Recurrent left knee instability (Chronic) Primary fibromyalgia syndrome (Chronic) Fibromyalgia Left ovarian cyst (Chronic) Gastroesophageal reflux disease (Chronic) Hiatal hernia (Chronic) Weight loss, unintentional (Chronic) First degree hemorrhoids (Chronic) Hyder's disease (Chronic) Sensorineural hearing loss of left ear (Chronic) Allergic rhinitis (Chronic) Rosacea (Chronic) Medical History Depressive disorder Dysfunctional uterine bleeding Invasive ductal carcinoma of left breast (~2010) S/p lumpectomy, chemo, radiation Left upper lobe pulmonary nodule Stable since 2010 Rectal bleeding Surgical History History of bilateral ligation of fallopian tubes (1971) History of thumb surgery (~1999) Bilateral thumb arthroplasty Hx of cataract surgery S/P colonoscopy (2019) S/P ORIF (open reduction internal fixation) fracture (2009) Right wrist S/P right knee arthroscopy (1991) S/P YAG capsulotomy, bilateral Status post carpal tunnel release (~2009) Status post lateral meniscectomy of right knee (1961) Status post left foot surgery (2016) Exostectomy Status post left knee replacement (2005) Status post partial mastectomy of left breast (2010) Status post revision of total replacement of right knee (2012) Status post right breast lumpectomy (1988) Status post right knee replacement (1996) Status post total hip replacement, right (2014) Family History Mother Diabetes Lung cancer Hypertension Father Stroke Hypertension Lung cancer Sister Dementia Hypertension Brother Diabetes Hypertension Liver cancer Daughter No problems noted. Daughter No problems noted. Maternal Grandfather No problems noted. Maternal Grandmother No problems noted. Paternal Grandfather No problems noted. Paternal Grandmother No problems noted. Social History Smoking/Tobacco Use Status: Never Second Hand Exposure: Yes Smoking risk assessment performed?: Yes Alcohol Intake: current Alcohol Intake frequency: a few times a month Alcohol type: wine and other Drug use: Never Substance use type: does not use Caregiver/Support person: No Household members: spouse Housing: house Communication Needs: Deaf Do you need help understanding health information?: Rarely Pets and animals: No Sexually active: Yes Current gender identity: female What is your relationship status?: How often do you talk on the phone with friends or family?: three or more times per week How often do you get together with friends or relatives?: once per week Do you belong to any clubs or organized social groups?: no Panel score (0-1 are the most socially isolated patients): 2 Margaret/Taoist: No preference Special margaret needs: No Seatbelt use: always 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 3.ENT: Atraumatic external nose and ears. Moist MM. Neck: Symmetric, trachea midline, No thyromegaly. 4.CVS: +S1/S2, No murmurs or gallops. Peripheral pulses 2+ and equal in all extremities. Brisk capillary refill in all extremities. 5.RESP: Unlabored respiratory effort. Mild scattered rhonchi and rales throughout 6.GI: Soft, Nontender/Nondistended, No hepatosplenomegaly. No guarding or rebound. 7.MSK: Normocephalic/Atraumatic, Extremities w/o deformity. Reproducible pain on palpation of the right scapula. Note no midline cervical thoracic or lumbar spine tenderness. Mild rib pain on palpation of the right lateral ribs around ribs 4 5 and 6. No anterior chest wall pain significance. Minimal achiness below the right breast. 8.Skin: Warm, Dry. No rashes or lesions. 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 Sensation grossly intact, no focal neurologic deficits. 10.Psych: (AAO) x3. Appropriate mood and affect Course Vital Signs Vital signs: Vital Signs Temperature 36.8 C 05/08/23 12:40 Pulse 82 05/08/23 12:40 Respiratory Rate 18 05/08/23 12:40 Blood Pressure 134/87 05/08/23 12:40 Pulse Oximetry 91 L 05/08/23 12:40 Temperature 36.8 C 05/08/23 12:40 Temperature Source Oral 05/08/23 12:40 Pulse 82 05/08/23 12:40 Respiratory Rate 18 05/08/23 12:40 Blood Pressure 134/87 05/08/23 12:40 Blood Pressure Position Supine 05/08/23 12:40 Pulse Oximetry 91 L 05/08/23 12:40 Oxygen Delivery Method Room Air 05/08/23 12:40 Oxygen Flow Rate 0 05/08/23 12:40 Pain Level 8 05/08/23 12:40 Lab/Test Results Lab/Test Results: Laboratory Tests Range/Units 05/08/23 05/08/23 05/08/23 13:00 13:00 13:00 PT Cancelled INR Cancelled APTT Cancelled VBG pH (7.31-7.41) 7.48 H VBG pCO2 (41-51) mmHg 33 L VBG pO2 mmHg 51 VBG HCO3 (23-28) mmol/L 25 VBG Total CO2 (24-29) mmol/L 22 L VBG O2 Saturation % 86 VBG Base Excess (-2-3) mmol/L 1 Sodium Cancelled Potassium Cancelled Chloride Cancelled Carbon Dioxide Cancelled Anion Gap Cancelled BUN Cancelled Creatinine Cancelled Est GFR (CKD-EPI 2020) Cancelled Glucose Cancelled Calcium Cancelled Total Bilirubin Cancelled AST Cancelled ALT Cancelled Alkaline Phosphatase Cancelled Troponin I Cancelled NT-Pro-B Natriuret Pep Cancelled Total Protein Cancelled Albumin Cancelled Procedures EJ/Peripheral Line Arm L: Time Out Performed: Yes Skin Cleansed in Sterile Fashion: Yes Size (gauge): 20 IV Secured and Dressing Applied: Yes Patient Tolerated Procedure: well and no complications Additional Comments: Candidate vein examined with linear array probe - confirmed collapsibility, lack of pulsatility, and proper anatomic location. Using aseptic technique, IV catheter inserted with flash of blood noted, flow of venous blood confirmed. Flushes easily and without pain. No hematoma or complications noted. IV secured. Patient tolerated well.
[2023-05-08 13:45] LABS: HCT 34.5 % (36.0-46.0); HGB 11.9 g/dL (11.2-15.7); MCH 29.9 pg (27.0-33.0); MCV 87 fL (80-95); RBC 3.98 10^6/uL (3.93-5.22); WBC 14.14 10^3/uL (4.4-10.8)
[2023-05-08 13:46] LABS: Absolute Eosinophil Count 0.28 10^3/uL (0.0-0.7); Absolute Lymphocyte Count 2.97 10^3/uL (1.2-3.4); Absolute Monocyte Count 0.99 10^3/uL (0.1-0.8); Absolute Neutrophil Count 9.47 10^3/uL (1.2-6.7); Atypical Lymphocytes % 1; Bands % 0; MCHC 34.5 % (32.0-36.0); MPV 8.8 fL (8.0-11.0); Metamyelocytes % 1; Myelocytes % 2; Platelet Count 406 10^3/uL (130-400); RDW 18.8 % (11.7-14.6); RDW-SD 56.5 fL
[2023-05-08 13:47] LABS: Diff Comment Manual Differential; RBC Morphology Normal
[2023-05-08] MEDS: Ketorolac 15 MG/ML VIAL IVP (13:50)
[2023-05-08] MEDS: HYDROmorphone 2 MG/ML SYR 1 MG IVP (13:50)
[2023-05-08] MEDS: ACETAMINOPHEN 1,000 MG/100 ML BTL 400 MG IVPB (13:50)
[2023-05-08 14:18] LABS: Bilirubin Negative (Negative); Blood Trace-intact (Negative); Clarity Clear (Clear); Glucose Negative (Negative); Ketones 15 mg/dL (Negative); Leukocyte Esterase Negative (Negative); Nitrite Negative (Negative); Specific Gravity 1.025 (1.005-1.025); Urobilinogen 0.2 mg/dL (Up to 0.2); pH 5.5 (5-8)
[2023-05-08 14:29] LABS: Bacteria Rare HPF (Negative); C & S Indicated? No; Casts Negative LPF (Negative); Crystals Negative HPF (Negative); Epithelial Cells Negative HPF (Negative); Mucus Negative (Negative); Other Cells Negative (Negative); WBC Negative HPF (0-5)
--- NOTE | 2023-05-08 14:30 | DI.CT_ITS ---
Exam(s) CT CHEST PE CTA EXAM: CT CHEST PE CTA CLINICAL HISTORY: right scapular chest pain, hx of mets, has cancer,. TECHNIQUE: Imaging Protocol: Axial CT angiography was performed with multi-slice acquisition and mu lti-planar reconstructions as well as axial, coronal and sagittal MIP reconstructions. CONTRAST MATERIAL: Intravenous: Omnipaque 350 Contrast volume:79 ml COMPARISON: CT CT THORAX ABD/PEL CTA from 04/19/2023 FINDINGS: Pulmonary Arteries: No evidence of filling defect to suggest pulmonary emboli. Tracheobronchial tree: Patent where visualized. Mediastinum and Antonia: Large hiatal hernia. No dominant adenopathy or fluid collection. Pulmonary parenchyma: Bibasilar atelectasis. No consolidation or dominant measurable mass. Pleura: Small to moderate bilateral pleural effusions, left greater than right. No pneumothorax. Heart: The heart is dilated. Mitral annular calcifications. Mild coronary artery calcifications are seen. Aorta: Thoracic aorta non-dilated. No aneurysm. No dissection. Upper abdomen: Unremarkable. Bones: Widespread bony metastases seen in the spine and ribs. Bilateral rib fractures. Moderate T11 compression fracture. Mild midthoracic compression fractures, unchanged. Soft tissues: Enlarged right axillary lymph nodes, stable. IMPRESSION: No evidence of pulmonary embolism. Small to moderate-sized bilateral pleural effusions. Widespread bony metastases with compression fractures appear stable. Bilateral rib fractures. Findings called to Dr. Sands of the emergency department. RADIATION DOSE DELIVERED: Total DLP DATA REPOSITORY: All CT scans at this facility are submitted to the National Radiology Data Registry (NRDR) Dose Index Registry (DIR) with the [employer] (A[employer]). RADIATION OPTIMIZATION: All CT scans at this facility use at least one of these dose optimization te chniques: automated exposure control; mA and/or kV adjustment per patient size (includes targeted exa ms where dose is matched to clinical indication); or iterative reconstruction.
[2023-05-08 14:32] LABS: INR 1.2 (0.9-1.1); PTT Activated 32.3 sec (21.5-31.9); Prothrombin Time 12.1 sec (9.3-11.0)
[2023-05-08 14:41] LABS: ALT 17 U/L (14-59); AST 42 U/L (15-37); Albumin 2.1 g/dL (3.4-5.0); Alkaline Phosphatase 190 U/L (46-116); Anion Gap 10.4 mmol/L (3-11); BUN 16 mg/dL (7-18); Bilirubin, Total 0.5 mg/dL (0.2-1.0); CO2 24.6 mmol/L (21.0-32.0); CREATININE 0.7 mg/dL (0.55-1.02); Calcium 8.9 mg/dL (8.5-10.1); Chloride 101 mmol/L (98-107); Estimated GFR 87.92 (mL/min/1.73m2); Glucose 90 mg/dL (74-106); NT-proBNP 2101 pg/mL (<300); Potassium 3.2 mmol/L (3.5-5.1); Sodium 136 mmol/L (136-145); Total Protein 6.5 g/dL (6.4-8.2); Troponin I < 50 ng/L (<or=60)
[2023-05-08] MEDS: Normal Saline - Diluent 50 ML VIAL IJ (15:17)
[2023-05-08] MEDS: Omnipaque 350 MG/ML 100 ML BTL IJ (15:17)
[2023-05-08] MEDS: fentaNYL 12 MCG PATCH TD (16:45)
--- NOTE | 2023-05-08 18:08 | W.ANESNERVE ---
Nerve Block Single Injection Procedure Date and Time Date Performed: 05/08/23 Procedure Start: 17:50 Location Where Procedure Performed Procedure Location: Emergency Department Reason Performed: Acute Pain Management Pain Diagnosis: Rib Pain Requesting Provider: Gabriel Sands Timeout Performed Timeout Performed: Yes Monitoring Used ECG, Blood Pressure, SpO2 and See EMR for corresponding vital signs Sterility Sterility: Hand Hygiene, Surgical Cap, Surgical Mask, Sterile Gloves and Sterile Drape/Sheet Sedation Given During Procedure Sedation Given (Indicate Dose Given): No Sedation given Patient Mental Status Patient Mental Status: Awake Nerve Block 1st Nerve Block: Laterality: Right Block Type: Erector Spinae (Lower) Ultrasound Image Saved?: Yes Needle / Catheter Used: 100mm SonoPlex II Local Anesthetic Bolus (Indicate Dose Given): Lidocaine used for local infiltration of skin, Injected in 3-5ml increments after negative blood aspiration, Bupivacaine 0.25% Dose:: 15mL and Exparel Dose:: 10mL Additives (Indicate Dose Given): None Ultrasound: Sterile probe cover and gel used Nerve Stimulator: Not Used Paresthesia: None Procedure Tolerated: No Complications and Patient tolerated well Procedure Outcome: Successful Procedure Comment: Lengthy discussion with patient and prior to the procedure about the potential risk to include infection and pneumothorax. Patient wished to proceed despite risk and verbalized understanding. Risks as well as alternatives were discussed. Patient's immediate goals were to return home and to complete some tasks prior to her palliative care appointment on Monday. Performed By: Haylie Cornejo
[2023-05-08] MEDS: Bupivacaine 0.25% Pres-Free 10 ML VIAL (18:12)
[2023-05-08] MEDS: Bupivacaine LIPOSOME/PF 133 MG/10 ML VIAL IJ (18:12)
== END 2023-05-08 18:37 | disposition home or self-care (01) ==
PROVIDERS: Emergency Provider Student in an Organized Health Care Education/Training Program; PCP Nurse Practitioner Family
DX: M84.48XA Pathological fracture, other site, initial encounter for fracture (principal); J90 Pleural effusion, not elsewhere classified; C79.81 Secondary malignant neoplasm of breast
CPT/HCPCS: 36573; 71275; 76942; 80053; 82805; 93005; 96374; 96375; 99285; 81003; 81015; 83880; 84484; 85025; 85610; 85730; 93010; 99284; J0131; J1170; J1885; J3490